=== PATIENT | female | born 1965 | race Two or more races ===

== ENCOUNTER 2020-03-12 13:22 | Outpatient (REF) | payer MEDICAID, SELFPAY ==
--- NOTE | 2020-03-12 13:25 | XR_ITS ---
EXAMINATION: XR PELVIS CLINICAL INFORMATION: Unilateral primary osteoarthritis, left hip. COMPARISON: Pelvis and left hip radiographs 01/25/2019, right hip radiographs 08/01/2015. TECHNIQUE: AP view of the pelvis. FINDINGS: The superior aspect of the iliac crests are beyond the film [id number]. Otherwise, the bony pelvis is unremarkable with no fracture or dislocation or destructive process. There is some minor whiskering lateral aspect left and right iliac crests similar to prior radiographs 2019. There are borderline degenerative changes lower SI joints and borderline osteitis pubis again seen. The right hip again shows prosthesis with intact hardware and no osteolysis. There is narrowing superior left hip joint. There is convexity and borderline spur at lateral base femoral head. Some mild spurring also seen left greater trochanter. XR/XR pelvis 1-2V IMPRESSION: 1. Osteoarthritis left hip. 2. Mild degenerative changes lower SI joints. Mild osteitis pubis. 3. Unremarkable right hip replacement.
== END 2020-03-12 13:23 | disposition home or self-care (01) ==
LOC: HO.HOSX 13:22
PROVIDERS: PCP Family Medicine; Referring Provider Family Medicine; Visit Provider Orthopaedic Surgery
DX: M16.12 Unilateral primary osteoarthritis, left hip (principal)
CPT/HCPCS: 72170; 99202

== ENCOUNTER 2020-04-03 05:40 | Outpatient (REF) | payer MEDICAID, SELFPAY ==
--- NOTE | 2020-04-03 08:48 | FL_ITS ---
EXAMINATION: XR FLUOROSCOPY WITH IMAGES CLINICAL INFORMATION: M16.12 - Unilateral primary osteoarthritis, left hip COMPARISON: Radiograph [place] 03/12/2020 TECHNIQUE: Fluoroscopy performed by Viridiana Santos NP. Fluoroscopy time: 0.2 minutes DAP: 2.0 Gycm2 Images: 1 FINDINGS: There is spinal needle overlying the superolateral aspect left hip joint with intra-articular and intracapsular contrast demonstrated. There is a faint round spot overlying the intertrochanteric region consistent with artifact on the monitor. FL/FL guidance in treatment room IMPRESSION: Fluoroscopy for pain management procedure.
== END 2020-04-03 05:41 | disposition home or self-care (01) ==
LOC: HO.RADIR 05:40
PROVIDERS: Visit Provider Anesthesiology
DX: M16.12 Unilateral primary osteoarthritis, left hip (principal)
CPT/HCPCS: 20610; J3300; Q9967

== ENCOUNTER 2020-04-12 10:45 | Emergency (ER) | payer MEDICAID, SELFPAY ==
[2020-04-12 10:56] VITALS: BP 131/75; BP 154/90; PULSE 90; PULSE 91; RESP 16; TEMP 36.3; O2SAT 100; O2SAT 99; BMI 38.7
--- NOTE | 2020-04-12 11:24 | ED.GENADULT ---
HPI - General Adult General Chief complaint: General Medical Stated complaint: r arm weakness/pain Time Seen by Provider: 04/12/20 11:24 History of Present Illness HPI narrative: Patient with history of hypercholesteremia, high blood pressure and a past TIA complains of an episode of unknown duration where her right arm was weak she cannot lift it or move it or feel it this happened 18 hours ago and was of unknown duration as she took her sleep medication and fell asleep and woke up in the arm was fully mobile with full strength and back to normal and she did want to come to the hospital but then got worried and came almost 24 hours after the episode Right now she has no complaint and has full use of the right arm right leg she has no headache no dizziness no confusion She also complains of her chronic neck pain Related Data Home Medications Medication Instructions Recorded Confirmed atorvastatin 20 mg tablet 20 mg PO DAILY 03/12/20 03/12/20 cyclobenzaprine 5 mg tablet 5 mg PO TID PRN 03/12/20 03/12/20 diclofenac sodium 25 mg 25 mg PO BID 03/12/20 03/12/20 tablet,delayed release hydrocodone 5 mg-acetaminophen 300 1 tab PO BID PRN 03/12/20 03/12/20 mg tablet lisinopril 5 mg tablet 5 mg PO DAILY 03/12/20 03/12/20 Allergies Allergy/AdvReac Type Severity Reaction Status Date / Time aspirin [ASPIRIN] Allergy Mild GI UPSET Unverified 03/12/20 16:44 ibuprofen [IBUPROFEN] Allergy Mild GI UPSET Unverified 03/12/20 16:44 Review of Systems Review of Systems: Positive for resolved weakness in the right upper extremity Negatives are currently no numbness no weakness no paresthesias no chest pain no dizziness no headache no nausea no vomiting no difficulty forming words no difficulty ambulating no palpitations no loss of consciousness no rash [facility] Past Medical History Attestation statement: The following information was validated with the patient. [facility] Narrative: Patient has medical history of hypertension high cholesterol, of vague history of a prior TIA, and chronic neck pain Medical History (Updated 04/13/20 @ 00:00 by Meseret Nielsen) High cholesterol Hypertension Osteoarthritis of left hip Stroke Surgical History (Updated 04/12/20 @ 11:23 by Rin Trujillo) History of appendectomy Status post total hip replacement, right Social History Social History Smoking Status: Current every day smoker Advance Directives: No Advance Directives Information Provided: No Current occupational status: unemployed Current occupation: Right Handed Physical Exam Vital Signs: Vital Signs: Last Vital Signs Temp 98.4 F 04/12/20 14:00 Pulse 80 04/12/20 14:00 Resp 19 04/12/20 14:00 BP 129/80 04/12/20 14:00 Pulse Ox 99 04/12/20 14:00 Body Mass Index 38.7 General appearance is no acute distress comfortable relaxed and cooperative Head is nor some normal cephalic atraumatic pupils equal round react flight the ears are normal tympanic membranes are normal canals are normal Pupils are equal round reactive to light and extraocular motions are intact The neck is supple there is some mild diffuse posterior tenderness worse in the right trapezius, range of motion is good The chest is clear to auscultation bilaterally with symmetric equal breath sounds The heart rate and rhythm regular, no murmur The abdomen is soft nontender Extremities for range of motion x4 neuro cranial nerves 2-12 were intact as tested pupils equal round react light extraocular motions intact verbal interaction is normal comprehension is normal gait is normal balance is normal Cerebellar exam finger to nose is normal, motor is 5/5 x4 and sensation is symmetric and intact Course Course Course Narrative: Patient with a resolved episode of weakness tingling and numbness in the right arm, she does have a history of neck pain but I doubt this was radicular neuropathy from her neck as the weakness fully resolved and the pain in her neck is chronic and there have not been any acute changes, full resolution by morning make me less concerned about radiculopathy in the neck and more concerned about TIA Head CT was negative, labs were pending & plan was to admit patient for a TIA The patient said she did not want to be in the hospital she wanted to go home she wanted to take her medications, I offered any home medications were available here, if she was anxious I could get her some Ativan, she also said she needed a cigarette I offered a nicotine patch The patient politely and calmly said that she did not want to be in the hospital did not want any further evaluation that she understood all risks and wanted to go home so the patient was not admitted and she was discharged AMA Medical Decision Making Lab Data Result diagrams: 04/12/20 15:16 04/12/20 15:16 Labs: Lab Results 04/12/20 04/12/20 04/12/20 Range/Units 12:33 12:33 12:33 WBC Cancelled RBC Cancelled Hgb Cancelled Hct Cancelled MCV Cancelled MCH Cancelled MCHC Cancelled RDW Cancelled Plt Count Cancelled MPV Cancelled Immature Gran % (Auto) Cancelled Neut % (Auto) Cancelled Lymph % (Auto) Cancelled [place] % (Auto) Cancelled Eos % (Auto) Cancelled Baso % (Auto) Cancelled Lymph # (Auto) Cancelled [place] # (Auto) Cancelled Eos # (Auto) Cancelled Baso # (Auto) Cancelled Abs Immat Gran (auto) Cancelled Absolute Neuts (auto) Cancelled Absolute Nucleated RBC Cancelled Nucleated RBC % (auto) Cancelled PT Cancelled INR Cancelled APTT (24.1-38.0) SEC Sodium Cancelled Potassium Cancelled Chloride Cancelled Carbon Dioxide Cancelled Anion Gap Cancelled BUN Cancelled Creatinine Cancelled Estim Creat Clear Calc Cancelled Estimated GFR Cancelled Random Glucose Cancelled Calcium Cancelled COVID-19 (KARELY) (Negative) COVID-19 Clin Com 04/12/20 04/12/20 04/12/20 Range/Units 13:58 15:16 15:16 WBC 9.9 RBC 4.57 Hgb 12.4 Hct 39.5 MCV 86.4 MCH 27.1 MCHC 31.4 RDW 15.1 Plt Count 266 MPV 9.9 Immature Gran % (Auto) 0.5 H Neut % (Auto) 70.9 Lymph % (Auto) 23.5 [place] % (Auto) 3.8 Eos % (Auto) 0.9 Baso % (Auto) 0.4 Lymph # (Auto) 2.3 [place] # (Auto) 0.4 Eos # (Auto) 0.1 Baso # (Auto) 0.0 Abs Immat Gran (auto) 0.05 H Absolute Neuts (auto) 7.0 Absolute Nucleated RBC 0.000 Nucleated RBC % (auto) 0.0 PT INR APTT 36.6 (24.1-38.0) SEC Sodium Potassium Chloride Carbon Dioxide Anion Gap BUN Creatinine Estim Creat Clear Calc Estimated GFR Random Glucose Calcium COVID-19 (KARELY) Negative (Negative) COVID-19 Clin Com See Note 04/12/20 Range/Units 15:16 WBC RBC Hgb Hct MCV MCH MCHC RDW Plt Count MPV Immature Gran % (Auto) Neut % (Auto) Lymph % (Auto) [place] % (Auto) Eos % (Auto) Baso % (Auto) Lymph # (Auto) [place] # (Auto) Eos # (Auto) Baso # (Auto) Abs Immat Gran (auto) Absolute Neuts (auto) Absolute Nucleated RBC Nucleated RBC % (auto) PT INR APTT (24.1-38.0) SEC Sodium 139 Potassium 4.1 Chloride 104 Carbon Dioxide 25 Anion Gap 14 BUN 13 Creatinine 0.99 Estim Creat Clear Calc 81.1 Estimated GFR 58 Random Glucose 119 H Calcium 8.8 COVID-19 (KARELY) (Negative) COVID-19 Clin Com Discharge Plan Discharge Clinical Impression: Brain TIA Patient Disposition: Left Against Medical Advice Additional Instructions: WE WANTED TO ADMIT YOU TO THE HOSPITAL BECAUSE WE ARE CONCERNED YOU HAD A TRANSIENT ISCHEMIC ATTACK, WHICH IS A STROKE WHERE SYMPTOMS RESOLVED AND RETURN TO NORMAL YOU HAD AN EPISODE OF WEAKNESS WHICH RESOLVED WE YOU WERE UNABLE TO MOVE YOUR RIGHT ARM AND THIS CERTAINLY COULD BE A STROKE SYMPTOM THAT RESOLVED MANY TIMES A PATIENT WITH A TRANSIENT STROKE WILL LATER HAVE A MUCH MORE SEVERE STROKE WITH RISK OF OR PERMANENT DISABILITY BECAUSE YOU DID NOT WANT TO BE ADMITTED AND LEFT AGAINST MEDICAL ADVICE WE GAVE YOU THE PAPERWORK BUT IT IS IMPORTANT YOU UNDERSTAND THE RISK AND THAT YOU ARE VERY WELCOME TO RETURN HERE ANY TIME AND THE DOOR IS OPEN IF YOU CHANGE YOUR MIND Prescriptions: No Action hydrocodone-acetaminophen 5-300 mg tablet 1 tab PO BID PRNRF: 0 cyclobenzaprine 5 mg tablet 5 mg PO TID PRNRF: 0 diclofenac sodium 25 mg tablet,delayed release (DR/EC) 25 mg PO BID RF: 0 atorvastatin 20 mg tablet 20 mg PO DAILY RF: 0 lisinopril 5 mg tablet 5 mg PO DAILY RF: 0 Stand Alone Forms: Against Medical Advice Interventions: ED Discharge Assessment Last Done: 04/12/20 16:13 Discharge Date/Time: 04/12/20 16:20
--- NOTE | 2020-04-12 11:35 | CT_ITS ---
EXAMINATION: CT HEAD WITHOUT CONTRAST CLINICAL INFORMATION: Transient weakness right arm COMPARISON: CT head noncontrast 12/05/2019 TECHNIQUE: Contiguous axial imaging was performed from the skull base to vertex without intravenous administration of contrast. Additional 2-D coronal and sagittal reformatted images are generated on the CT workstation and uploaded to PACS. This CT examination was performed using dose optimization techniques as appropriate, variously including the following: *Automated exposure control *Adjustment of mA and/or kV according to patient size (this includes techniques or standardized protocols for targeted exams where dose is matched to indication/reason for exam; i.e. extremities or head) *Use of iterative reconstruction technique DLP: 616 mGy-cm FINDINGS: There is no intracranial hemorrhage, hematoma, or extra-axial fluid collection. The ventricles are normal in size. There is no hydrocephalus, edema, or mass effect. The almonte-white matter differentiation appears symmetric. There is no visible acute territorial infarct or mass lesion. The calvarium appears intact. There is no pneumocephalus or orbital emphysema. The visualized sinuses and middle ears and mastoid air cells show no significant mucosal thickening. There are no air-fluid levels. CT/CT head/brain wo con IMPRESSION: No acute intracranial abnormality.
--- NOTE | 2020-04-12 11:35 | ECG_ITS ---
Test Reason : TIA Blood Pressure : / mmHG Vent. Rate : 078 BPM Atrial Rate : 078 BPM P-R Int : 152 ms QRS Dur : 076 ms QT Int : 378 ms P-R-T Axes : 047 -10 020 degrees QTc Int : 430 ms Normal sinus rhythm Possible Left atrial enlargement Borderline ECG When compared to the previous EKG of No significant changes seen Referred By: Pierre Miramontes Electronically Signed By:LILY ZEPEDA MD
--- NOTE | 2020-04-12 11:39 | PC.NURSE ---
PT TO BE TRANSFERED TO [facility] R/T +COVID EXPOSURE AND FURTHER EVALUATION, AMBULATORY W/O APPARENT INCIDENT, REPORT TO SHLOMO MENCHACA
[2020-04-12 11:48] VITALS: BP 137/83; PULSE 85; RESP 19
[2020-04-12 12:00] VITALS: BP 133/88; PULSE 82; RESP 19; TEMP 36.7; O2SAT 99
[2020-04-12 13:48] VITALS: BP 147/89; PULSE 77
[2020-04-12 14:00] VITALS: BP 129/80; PULSE 80; RESP 19; TEMP 36.9; O2SAT 99
[2020-04-12 14:51] LABS: COVID-19 Test Negative (Negative)
[2020-04-12 15:22] LABS: MANUAL DIFF FLAG NO
[2020-04-12 15:24] LABS: Basophils Percent Auto 0.4 % (0-2); Eosinophils Absolute Auto 0.1 X10*3/uL (0.0-0.4); Eosinophils Percent Auto 0.9 % (0-4); Hematocrit 39.5 % (37-47); Hemoglobin 12.4 g/dl (12.0-16.0); Imm Gran Abs Auto 0.05 X10*3/uL (0.00-0.03); Imm Gran Pct Auto 0.5 % (0.0-0.4); Lymphocytes Absolute Auto 2.3 X10*3/uL (1.2-4.9); Lymphocytes Percent Auto 23.5 % (20-40); Mean Corpuscular HGB Conc 31.4 g/dl (31.0-35.0); Mean Corpuscular Hemoglobin 27.1 pg (27.0-33.0); Mean Corpuscular Volume 86.4 fL (80-98); Mean Platelet Volume 9.9 fL (9.4-12.3); Monocytes Absolute Auto 0.4 X10*3/uL (0.1-1.2); Monocytes Percent Auto 3.8 % (2-11); Neutrophils Percent Auto 70.9 % (45-73); Platelet Count 266 X10*3/uL (160-400); Red Blood Count 4.57 X10*6/uL (4.20-5.50); Red Cell Distribution Width 15.1 % (11.0-16.0); White Blood Count 9.9 X10*3/uL (4.8-10.8)
[2020-04-12 15:34] LABS: Partial Thromboplastin Time 36.6 SEC (24.1-38.0)
[2020-04-12 15:43] LABS: Anion Gap 14 (12-20); Blood Urea Nitrogen 13 mg/dL (9-16); Calcium 8.8 mg/dL (8.4-10.2); Carbon Dioxide 25 mmol/L (22-29); Chloride 104 mmol/L (96-108); Creatinine Clr Calc Pharmacy 81.1; Estimated Glomerular Filt Rate 58; Glucose Random 119 mg/dL (60-115); Potassium 4.1 mmol/l (3.3-5.1); Sodium 139 mmol/L (135-145)
--- NOTE | 2020-04-23 14:46 | MHC.STROKE ---
LATE ENTRY FOR 04/12/20 NIHSS = 0 ESTIMATED FROM ED RECORD. LKW 05/12/19 APPORX. 1645. NOT CONSIDERED FOR TPA DUE TO OUT OF THE WINDOW FOR TPA, RESOLUTION OF SYMPTOMS. ENCOURAGED TO STAY BUT SIGNED AMA.
== END 2020-04-12 16:20 | disposition left against medical advice (07) ==
PROVIDERS: Physician Assistant Medical; Emergency Provider Emergency Medicine Emergency Medical Services
DX: G45.9 Transient cerebral ischemic attack, unspecified (principal); I10 Essential (primary) hypertension; Z20.828 Contact with and (suspected) exposure to other viral communicable diseases; E78.00 Pure hypercholesterolemia, unspecified; F17.200 Nicotine dependence, unspecified, uncomplicated; Z86.73 Personal history of transient ischemic attack (TIA), and cerebral infarction without residual deficits; Z79.899 Other long term (current) drug therapy
CPT/HCPCS: 36415; 70450; 80048; 85025; 85730; 87635; 93005; 99284

== ENCOUNTER → 2020-05-14 14:19 | Outpatient (BNVA) | payer MEDICAID, SELFPAY | PROVIDERS: Visit Provider Anesthesiology ==

== ENCOUNTER → 2020-07-23 10:48 | Outpatient (BNVA) | payer MEDICAID, SELFPAY | PROVIDERS: PCP Family Medicine; Visit Provider Nurse Practitioner Family | DX: M16.12 Unilateral primary osteoarthritis, left hip (principal) | CPT/HCPCS: 99212 ==

== ENCOUNTER 2020-08-21 06:13 | Outpatient (REF) | payer MEDICAID, SELFPAY ==
--- NOTE | ~2020-08-21 | FL_ITS ---
EXAMINATION: XR FLUOROSCOPY WITH IMAGES CLINICAL INFORMATION: M16.12 - Unilateral primary osteoarthritis, left hip COMPARISON: Fluoroscopic spot views left hip 04/03/2020 TECHNIQUE: Fluoroscopy performed by Viridiana Santos NP. Fluoroscopy time: 0.1 minutes DAP: 3.39 Gycm2 Images: 1 FINDINGS: There is spinal needle overlying the superior lateral left hip joint. Contrast is present in the joint capsule. There are osteoarthritic changes with joint narrowing and subchondral sclerosis and osteophytes. FL/FL guidance in treatment room IMPRESSION: Fluoroscopy for pain management procedure.
== END 2020-08-21 06:14 | disposition home or self-care (01) ==
LOC: HO.RADIR 06:13
PROVIDERS: Visit Provider Anesthesiology
DX: M16.12 Unilateral primary osteoarthritis, left hip (principal); J44.9 Chronic obstructive pulmonary disease, unspecified; F17.200 Nicotine dependence, unspecified, uncomplicated; Z71.6 Tobacco abuse counseling
CPT/HCPCS: 20610; 99202; Q9967

== ENCOUNTER 2020-09-20 15:13 | Outpatient (REF) | payer MEDICAID, SELFPAY ==
--- NOTE | ~2020-09-20 | XR_ITS ---
EXAMINATION: XR KNEE, LEFT CLINICAL INFORMATION: Left knee pain COMPARISON: None TECHNIQUE: Four views of the left knee. FINDINGS: There is no fracture, dislocation, or destructive process. Bony mineralization appears normal. There is no joint narrowing or erosive change or chondrocalcinosis. No lateralization patella. No suprapatellar effusion. XR/XR knee LT 4V IMPRESSION: Unremarkable left knee.
--- NOTE | 2020-09-20 17:20 | PFT_ITS ---
FLOWS: FEV1 of 70% of predicted at 2.01 L. FVC 77% of predicted at 2.84 L. FEV1 to FVC ratio of 0.71. Positive bronchodilator response. LUNG VOLUMES: Total lung capacity 82% of predicted at 4.42 L. Residual volume 95% of predicted at 1.89 L. Slow vital capacity 75% of predicted at 2.52 L. Expiratory reserve volume 43% of predicted at 0.45 L. Diffusion capacity is mildly decreased, diffusion capacity corrects to normal after adjustment for alveolar ventilation. IMPRESSION: No obstructive or restrictive ventilatory defect. Positive bronchodilator response. Decreased expiratory reserve volume suggests extrathoracic restriction likely secondary to abdominal obesity. Ramiro Mccauley MD AP/MODL / [id number]
== END 2020-09-20 15:14 | disposition home or self-care (01) ==
LOC: HO.RESP 15:13
PROVIDERS: Absent Provider Nurse Practitioner Women's Health; PCP Family Medicine; Visit Provider Internal Medicine
DX: J44.9 Chronic obstructive pulmonary disease, unspecified (principal); M16.12 Unilateral primary osteoarthritis, left hip; M25.562 Pain in left knee
CPT/HCPCS: 73564; 94060; 94727; 94729

== ENCOUNTER → 2020-09-25 11:08 | Outpatient (BNVA) | payer MEDICAID, SELFPAY | PROVIDERS: PCP Family Medicine; Visit Provider Internal Medicine | DX: J44.9 Chronic obstructive pulmonary disease, unspecified (principal); F17.210 Nicotine dependence, cigarettes, uncomplicated | CPT/HCPCS: 99212 ==

== ENCOUNTER 2020-09-25 13:00 | Outpatient (RCR) | payer MEDICAID, SELFPAY | END 2020-09-28 08:00 | disposition home or self-care (01) | LOC: HO.PT 13:00 | PROVIDERS: PCP Family Medicine; Visit Provider Nurse Practitioner Women's Health | DX: M25.852 Other specified joint disorders, left hip (principal) | CPT/HCPCS: 97110; 97112; 97116; 97163; 97530 ==

== ENCOUNTER → 2020-09-26 12:43 | Outpatient (BNVA) | payer MEDICAID, SELFPAY | PROVIDERS: PCP Family Medicine; Visit Provider Nurse Practitioner Family | DX: M16.12 Unilateral primary osteoarthritis, left hip (principal) | CPT/HCPCS: 99212 ==

== ENCOUNTER 2020-10-29 12:12 | Outpatient (REF) | payer MEDICAID, SELFPAY ==
--- NOTE | ~2020-10-29 | MM_ITS ---
EXAMINATION: MM SCREENING DIGITAL BREAST TOMOSYNTHESIS, BILATERAL CLINICAL INFORMATION: Screening. Asymptomatic. The lifetime risk of breast cancer based on the Tyrer-Cuzick Model is 7%. COMPARISON: Mammography: 10/27/2018, 07/24/2017, 10/23/2015 TECHNIQUE: Digital breast tomosynthesis is performed in both the craniocaudal and mediolateral oblique views along with computer-aided detection (CAD). Synthesized 2D images are generated from the tomosynthesis. FINDINGS: There are scattered areas of fibroglandular density (ACR BI-RADS breast composition Category b). Breast tissue composition borders on predominantly fatty. Background stromal and fibroglandular densities nodularity mid 3:00 left breast are stable. There are 2 biopsy clip markers again seen posterior central 9:00 left breast.There is no developing density or interval mass or architectural abnormality. No abnormal calcifications. No significant changes. MM/MM tomosynthesis screening BI IMPRESSION: No mammographic evidence of malignancy. ASSESSMENT: BI-RADS 2: Benign RECOMMENDATION: Routine annual mammography screening. This patient's information was entered into a reminder system with a target due date for their next mammogram.
== END 2020-10-29 12:13 | disposition home or self-care (01) ==
LOC: HO.MAMMO 12:12
PROVIDERS: Visit Provider Family Medicine
DX: Z12.31 Encounter for screening mammogram for malignant neoplasm of breast (principal)
CPT/HCPCS: 77063; 77067

== ENCOUNTER 2020-10-29 12:55 | Outpatient (REF) | payer MEDICAID, SELFPAY ==
--- NOTE | ~2020-10-29 | CT_ITS ---
EXAMINATION: CT CHEST SCREENING CLINICAL INFORMATION: Smoking history COMPARISON: Previous chest CT April 2015 and chest x-rays most recent February 2019 TECHNIQUE: Multidetector volumetric CT imaging of the chest is performed without contrast using low dose technique. Additional 2D coronal and sagittal reformatted images and axial 3D maximum intensity projection (MIP) images are generated on the CT workstation. This CT examination was performed using dose optimization techniques as appropriate, variously including the following: *Automated exposure control *Adjustment of mA and/or kV according to patient size (this includes techniques or standardized protocols for targeted exams where dose is matched to indication/reason for exam; i.e. extremities or head) *Use of iterative reconstruction technique DLP: 76 mGy-cm FINDINGS: LUNGS: There is a 1 cm cyst in the superior segment of the left lower lobe. There is minimal linear scarring or subsegmental atelectasis in the inferior segment of the lingula. Lungs are otherwise clear. Previously identified dense airspace disease in the right upper lobe on April 2015 exam has resolved. MEDIASTINUM: There is mild coronary artery calcification. There are small mediastinal lymph nodes. The mediastinum is otherwise normal. PLEURA: There is no pleural effusion. No pleural mass or thickening. AXILLA: No lymphadenopathy. UPPER ABDOMEN: Unremarkable OSSEOUS STRUCTURES: There are degenerative changes of the spine. CT/CT lung screening IMPRESSION: Small cyst in the left lower lobe and minimal linear scarring or subsegmental atelectasis in the inferior segment of the lingula. Mild coronary artery calcification. ASSESSMENT: Lung-RADS category 2: Benign RECOMMENDATION: Annual low-dose chest CT follow-up recommended.
== END 2020-10-29 12:56 | disposition home or self-care (01) ==
LOC: HO.CT 12:55
PROVIDERS: PCP Family Medicine; Visit Provider Physician Assistant Medical
DX: Z12.2 Encounter for screening for malignant neoplasm of respiratory organs (principal); F17.210 Nicotine dependence, cigarettes, uncomplicated
CPT/HCPCS: 71271

== ENCOUNTER 2020-11-12 11:54 | Outpatient (REF) | payer MEDICAID, SELFPAY ==
--- NOTE | ~2020-11-12 | XR_ITS ---
EXAMINATION: XR PELVIS CLINICAL INFORMATION: Pain hip. COMPARISON: None TECHNIQUE: AP view of the pelvis. FINDINGS: There is a total right hip prosthesis with prosthetic components in satisfactory alignment. No prosthetic loosening visualized. There is moderate loss of left hip joint space with left lateral acetabular spurring. There is minimal deformity of left femoral head and neck junction. No acute fractures seen. There is no dislocation. No loose bodies visualized. There are subchondral cystic changes along the acetabulum. Bilateral SI joints are symmetrical. Visualized rest of the pelvis and the sacral bone appears unremarkable. XR/XR pelvis 1-2V IMPRESSION: Moderate arthritic changes left hip joint. Total right hip prosthesis with prosthetic components in satisfactory alignment. No prosthetic loosening seen.
== END 2020-11-12 11:55 | disposition home or self-care (01) ==
LOC: HO.HOSX 11:54
PROVIDERS: Visit Provider Orthopaedic Surgery
DX: M16.12 Unilateral primary osteoarthritis, left hip (principal)
CPT/HCPCS: 72170; 99202

== ENCOUNTER → 2021-01-07 12:43 | Outpatient (BNVA) | payer MEDICAID, SELFPAY | PROVIDERS: Visit Provider Orthopaedic Surgery | DX: Z01.812 Encounter for preprocedural laboratory examination (principal); Z01.810 Encounter for preprocedural cardiovascular examination ==

== ENCOUNTER → 2021-01-24 12:37 | Outpatient (BNVA) | payer MEDICAID, SELFPAY | PROVIDERS: PCP Family Medicine; Visit Provider Physician Assistant | DX: M16.12 Unilateral primary osteoarthritis, left hip (principal) | CPT/HCPCS: 99212 ==

== ENCOUNTER 2021-01-29 08:09 | Inpatient (IN) | payer MEDICAID, SELFPAY ==
[2021-01-16 12:04] VITALS: BP 139/85; PULSE 84; RESP 16; O2SAT 98; BMI 36.4
--- NOTE | 2021-01-16 12:40 | HO.ANESPROP2 ---
Documented by User: Minoo Peters NP 01/30/21 08:48 HPI - Anesthesia Eval Consult details Narrative: 55yo F for Left Total Hip Replacement 01/29/21 PCP [facility] Active Problems Active Problems: All Active Problems (Updated 01/16/21 @ 12:35 by Rylee Garrett RN) Primary osteoarthritis of left hip (Acute) Nicotine dependence, cigarettes, uncomplicated (Acute ~1978) Personal history of nicotine dependence (Acute ~1978) COPD (chronic obstructive pulmonary disease) (Acute) Osteoarthritis of left hip (Acute) Past Medical History Medical History Anxiety and depression Chronic headaches COPD (chronic obstructive pulmonary disease) History of panic attacks History of TIA (transient ischemic attack) (~2019) Hyperlipidemia Hypertension Low back pain Neck pain Nicotine dependence, cigarettes, uncomplicated (~1978) Osteoarthritis of left hip Personal history of nicotine dependence (~1978) Poor dentition Uses roller walker Family History Family history of problems with anesthesia: No Surgical History Surgical History History of appendectomy (~02/13/02) Status post total hip replacement, right (~04/26/13) History of Problems with Anesthesia: No Social History Social History Household Members: None Housing: Apartment Are you a primary long term care phlebotomist to a significant other at home: No Do you presently have visiting nurse or other home services: No Patient Tobacco Use Status: Current everyday Tobacco user Tobacco use type: Cigarette Cigarette Packs Per Day: 1 Cigarettes Per Day: 20.0 Years Smoked: 42 Second Hand Smoke Exposure: No Current occupational status: unemployed Current occupation: Right Handed Narrative Narrative: No recent illness No chest pain at rest SOB/PAINTING at baseline. Activity limited d/t pain and PAINTING Meds Allergies Allergy/AdvReac Type Severity Reaction Status Date / Time aspirin [ASPIRIN] Allergy Mild GI UPSET Verified 01/29/21 08:02 ibuprofen [IBUPROFEN] Allergy Mild GI UPSET Verified 01/29/21 08:02 Home Medications Medication Instructions Recorded Confirmed Last Taken Type cyclobenzaprine 5 mg tablet 5 mg PO TID PRN 03/12/20 01/29/21 Unknown History alprazolam 0.5 mg tablet (Xanax) 0.5 mg PO QID tab 07/23/20 01/16/21 01/28/21 History lisinopril 10 mg tablet 10 mg PO BEDTIME 07/23/20 01/16/21 01/28/21 History albuterol sulfate 90 mcg/actuation 2 puff INHALATION Q6H PRN 08/21/20 01/16/21 01/28/21 History aerosol inhaler (ProAir HFA) fluticasone propionate 220 1 puff INHALATION BID 08/21/20 01/16/21 01/28/21 History mcg/actuation HFA aerosol inhaler (Flovent HFA) tiotropium bromide 18 mcg capsule 1 cap INHALATION DAILY 08/21/20 01/16/21 01/28/21 History with inhalation device (Spiriva with HandiHaler) oxcarbazepine 600 mg tablet 600 mg PO BEDTIME 01/16/21 01/23/21 01/28/21 History lamotrigine 200 mg tablet 200 mg PO BEDTIME 01/23/21 01/23/21 01/28/21 History cholecalciferol (vitamin D3) 25 1 cap PO DAILY 01/29/21 01/29/21 01/28/21 History mcg (1,000 unit) capsule (Vitamin D3) gabapentin 600 mg tablet 600 mg PO TID 01/29/21 01/29/21 01/28/21 History lidocaine 5 % topical patch 1 patch TOPICAL DAILY PRN 01/29/21 01/29/21 Unknown History nicotine 21 mg/24 hr daily 1 patch TRANSDERMAL DAILY 01/29/21 01/29/21 01/29/21 History transdermal patch omeprazole 20 mg capsule,delayed 1 cap PO DAILY@0630 01/29/21 01/29/21 01/28/21 History release quetiapine 50 mg tablet 50 mg PO BEDTIME 01/29/21 01/29/21 01/28/21 History 50 mg sumatriptan succinate 50 mg tablet 50 mg PO DAILY PRN 01/29/21 01/29/21 01/28/21 History zolpidem 10 mg tablet 1 tab PO BEDTIME 01/29/21 01/29/21 Unknown History Exam Exam Date and Time: January 16, 2021 1240 Height,Weight and Vital Signs: Height 5 ft 6 in Weight 102.512 kg Last Vital Signs Pulse 84 01/16/21 12:04 Resp 16 01/16/21 12:04 BP 139/85 01/16/21 12:04 Pulse Ox 98 01/16/21 12:04 Pertinent Lab Results Pertinent Lab Results: Lab Results 01/16/21 01/24/21 01/24/21 Range/Units 12:30 13:35 13:35 WBC 8.4 (4.8-10.8) X10*3/uL RBC 4.62 (4.20-5.50) X10*6/uL Hgb 12.2 (12.0-16.0) g/dl Hct 39.5 (37-47) % MCV 85.5 (80-98) fL MCH 26.4 L (27.0-33.0) pg MCHC 30.9 L (31.0-35.0) g/dl RDW 14.3 (11.0-16.0) % Plt Count 261 (160-400) X10*3/uL MPV 10.6 (9.4-12.3) fL Immature Gran % (Auto) 0.5 H (0.0-0.4) % Neut % (Auto) 70.2 (45-73) % Lymph % (Auto) 22.2 (20-40) % [place] % (Auto) 5.4 (2-11) % Eos % (Auto) 1.2 (0-4) % Baso % (Auto) 0.5 (0-2) % Lymph # (Auto) 1.9 (1.2-4.9) X10*3/uL [place] # (Auto) 0.5 (0.1-1.2) X10*3/uL Eos # (Auto) 0.1 (0.0-0.4) X10*3/uL Baso # (Auto) 0.0 (0.0-0.2) X10*3/uL Abs Immat Gran (auto) 0.04 H (0.00-0.03) X10*3/uL Absolute Neuts (auto) 5.9 (2.0-8.3) X10*3/uL Absolute Nucleated RBC 0.000 (0.0-0.012) X10*3/uL Nucleated RBC % (auto) 0.0 (0.0-0.2) /100WBC Sodium 140 (135-145) mmol/L Potassium 4.6 (3.3-5.1) mmol/L Chloride 105 (96-108) mmol/L Carbon Dioxide 27 (22-29) mmol/L Anion Gap 13 (12-20) BUN 9 (9-16) mg/dL Creatinine 0.88 (0.5-1.4) mg/dL Estim Creat Clear Calc 87.3 Estimated GFR > 60 Random Glucose 102 (60-115) mg/dL Calcium 9.6 D (8.4-10.2) mg/dL Nasal Screen MRSA (PCR) POSITIVE A (Negative) Nasal S. aureus Screen POSITIVE A (Negative) Nasal MRSA/S.aureus Interp SEE NOTE Laboratory Tests 01/24/21 13:35 Blood Type O Positive Antibody Screen NEGATIVE Narrative Narrative: EKG 01/18/21 SR @ 94 Airway Mallampati Class: III Neck ROM: Limited (D/t pain) Loose/Missing/Broken Teeth: Yes (Upper permanent bridge, most lower teeth missing) Heart: RRR Lungs: CTAB Assessment and Plan Assessment Anesthesia Assessment: Anesthesia Plan Discussed, Smoking Cess. Discussed and PAT Visit Final Anesthetic Review Family History of Problems with Anesthesia: No History of Problems with Anesthesia: No Documented by User: Giancarlo Cornelius MD 02/05/21 16:40 [facility] Past Medical History Medical History Anxiety and depression Chronic headaches COPD (chronic obstructive pulmonary disease) History of panic attacks History of TIA (transient ischemic attack) (~2019) Hyperlipidemia Hypertension Low back pain Neck pain Nicotine dependence, cigarettes, uncomplicated (~1978) Osteoarthritis of left hip Personal history of nicotine dependence (~1978) Poor dentition Uses roller walker Surgical History Surgical History History of appendectomy (~02/13/02) Status post total hip replacement, right (~04/26/13) Social History Social History Household Members: None Housing: Apartment Are you a primary long term care phlebotomist to a significant other at home: No Do you presently have visiting nurse or other home services: No Patient Tobacco Use Status: Current everyday Tobacco user Tobacco use type: Cigarette Cigarette Packs Per Day: 1 Cigarettes Per Day: 20.0 Years Smoked: 42 Second Hand Smoke Exposure: No Current occupational status: unemployed Current occupation: Right Handed Meds Allergies Allergy/AdvReac Type Severity Reaction Status Date / Time aspirin [ASPIRIN] Allergy Mild GI UPSET Verified 01/29/21 08:02 ibuprofen [IBUPROFEN] Allergy Mild GI UPSET Verified 01/29/21 08:02 Home Medications Medication Instructions Recorded Confirmed Last Taken Type cyclobenzaprine 5 mg tablet 5 mg PO TID PRN 03/12/20 01/29/21 Unknown History alprazolam 0.5 mg tablet (Xanax) 0.5 mg PO QID tab 07/23/20 01/16/21 01/28/21 History lisinopril 10 mg tablet 10 mg PO BEDTIME 07/23/20 01/16/21 01/28/21 History albuterol sulfate 90 mcg/actuation 2 puff INHALATION Q6H PRN 08/21/20 01/16/21 01/28/21 History aerosol inhaler (ProAir HFA) fluticasone propionate 220 1 puff INHALATION BID 08/21/20 01/16/21 01/28/21 History mcg/actuation HFA aerosol inhaler (Flovent HFA) tiotropium bromide 18 mcg capsule 1 cap INHALATION DAILY 08/21/20 01/16/21 01/28/21 History with inhalation device (Spiriva with HandiHaler) oxcarbazepine 600 mg tablet 600 mg PO BEDTIME 01/16/21 01/23/21 01/28/21 History lamotrigine 200 mg tablet 200 mg PO BEDTIME 01/23/21 01/23/21 01/28/21 History cholecalciferol (vitamin D3) 25 1 cap PO DAILY 01/29/21 01/29/21 01/28/21 History mcg (1,000 unit) capsule (Vitamin D3) gabapentin 600 mg tablet 600 mg PO TID 01/29/21 01/29/21 01/28/21 History lidocaine 5 % topical patch 1 patch TOPICAL DAILY PRN 01/29/21 01/29/21 Unknown History nicotine 21 mg/24 hr daily 1 patch TRANSDERMAL DAILY 01/29/21 01/29/21 01/29/21 History transdermal patch omeprazole 20 mg capsule,delayed 1 cap PO DAILY@0630 01/29/21 01/29/21 01/28/21 History release quetiapine 50 mg tablet 50 mg PO BEDTIME 01/29/21 01/29/21 01/28/21 History 50 mg sumatriptan succinate 50 mg tablet 50 mg PO DAILY PRN 01/29/21 01/29/21 01/28/21 History zolpidem 10 mg tablet 1 tab PO BEDTIME 01/29/21 01/29/21 Unknown History Assessment and Plan Final Anesthetic Review NPO: Yes ASA Class: III Final Preanesthetic Review: No Changes in Pt Med Stat, Meds/Allgs Chart Reviewed, Consent Obtained/Reviewed and Anes Risks/Benef Reviewed Patient Risk: Intermediate Procedure Risk: Intermediate Anesthetic Plan Anesthetic Plan: MAC: and Spinal Disposition: Standard PACU
[2021-01-16 14:31] LABS: MRSA Nasal PCR POSITIVE (Negative); SA Nasal PCR POSITIVE (Negative)
[2021-01-24 13:38] LABS: MANUAL DIFF FLAG NO
[2021-01-24 14:22] LABS: Basophils Percent Auto 0.5 % (0-2); Eosinophils Absolute Auto 0.1 X10*3/uL (0.0-0.4); Eosinophils Percent Auto 1.2 % (0-4); Hematocrit 39.5 % (37-47); Hemoglobin 12.2 g/dl (12.0-16.0); Imm Gran Abs Auto 0.04 X10*3/uL (0.00-0.03); Imm Gran Pct Auto 0.5 % (0.0-0.4); Lymphocytes Absolute Auto 1.9 X10*3/uL (1.2-4.9); Lymphocytes Percent Auto 22.2 % (20-40); Mean Corpuscular HGB Conc 30.9 g/dl (31.0-35.0); Mean Corpuscular Hemoglobin 26.4 pg (27.0-33.0); Mean Corpuscular Volume 85.5 fL (80-98); Mean Platelet Volume 10.6 fL (9.4-12.3); Monocytes Absolute Auto 0.5 X10*3/uL (0.1-1.2); Monocytes Percent Auto 5.4 % (2-11); Neutrophils Absolute Auto 5.9 X10*3/uL (2.0-8.3); Neutrophils Percent Auto 70.2 % (45-73); Platelet Count 261 X10*3/uL (160-400); Red Blood Count 4.62 X10*6/uL (4.20-5.50); Red Cell Distribution Width 14.3 % (11.0-16.0); White Blood Count 8.4 X10*3/uL (4.8-10.8)
[2021-01-24 14:47] LABS: Anion Gap 13 (12-20); Blood Urea Nitrogen 9 mg/dL (9-16); Calcium 9.6 mg/dL (8.4-10.2); Carbon Dioxide 27 mmol/L (22-29); Chloride 105 mmol/L (96-108); Creatinine Clr Calc Pharmacy 87.3; Estimated Glomerular Filt Rate > 60; Glucose Random 102 mg/dL (60-115); Potassium 4.6 mmol/L (3.3-5.1); Sodium 140 mmol/L (135-145)
[2021-01-29] VITALS (20 sets, daily range): BP systolic 96–150; BP diastolic 51–87; PULSE 70–111; RESP 15–22; TEMP 36.2–37.1; O2SAT 93–99
--- NOTE | ~2021-01-29 | XR_ITS ---
EXAMINATION: XR PELVIS CLINICAL INFORMATION: Post left hip replacement COMPARISON: Previous x-ray October 2020 TECHNIQUE: AP view of the pelvis. FINDINGS: There is a new left hip replacement in satisfactory position. No fracture or dislocation is seen. There is a right hip replacement in satisfactory position. The visualized pelvis is unremarkable. There are postoperative changes to the soft tissues. XR/XR pelvis 1-2V IMPRESSION: New left hip replacement in satisfactory position.
[2021-01-29] MEDS: Lactated Ringers 1,000 ML 100 ML IVCONT (08:55)
[2021-01-29 08:57] LABS: COVID-19 Test Negative (Negative); IDNOW Serial# 9DD0AD1C
[2021-01-29] MEDS: vancomycin HCL 1,500 MG in 0.9 % Sodium Chloride 500 ML 333.33 MG IV ×2 (08:58→22:43)
[2021-01-29] MEDS: oxyCODONE HCl ER 10 MG TAB.ER.12H PO ×2 (09:17→22:43)
--- NOTE | 2021-01-29 09:19 | PC.NURSE ---
Verified ordered Vancomycin IV dose with Eloy from Pharmacy. He stated dose should be increased from 1000mg to 1500mg and that he will change it in Expanse. Vanco 1500mg administered.
--- NOTE | 2021-01-29 09:23 | PC.NURSE ---
Patient took Vicodin 5/325mg and Tylenol 500mg this AM at 0600. Dr. Cornelius notified. Okay to still give ordered Oxycontin 10mg however, Ofirmev 1000mg to be held and administered at a later time. This medication returned to Pyxis.
--- NOTE | 2021-01-29 09:27 | MHC.SHP ---
Pre-Procedural Eval Section A Date of Service: 01/29/21 The patient is an INPATIENT: No Changes since office visit: Yes Patient answered all questions; No Cold of Flu in the past 2 weeks, No New Medical Problems and No Changes in Medication The History & Physical has been completed within 30 days and I have reviewed it.: Yes Section B Chief Complaint: LT MARISELA Allergies: Allergies Allergy/AdvReac Type Severity Reaction Status Date / Time aspirin [ASPIRIN] Allergy Mild GI UPSET Verified 01/29/21 08:02 ibuprofen [IBUPROFEN] Allergy Mild GI UPSET Verified 01/29/21 08:02 Plan I have reviewed the history and physical and performed a pertinent physical examination on my patient. No changes have occurred unless specified.
--- NOTE | 2021-01-29 11:55 | PM.OP ---
Brief Operative Note Date of Service: 01/29/21 Pre-op diagnosis: left hip OA Post-op diagnosis: same Procedure: L MARISELA Implants: Pauline trident 2 52/20 deg liner [place] accolade2 #4 132 deg +0 36 deramic Surgeon: William Neal MD Anesthesia: GETA Was an Entry Level Project Coordinator used for this Procedure?: Yes Entry Level Project Coordinator: Aureliano Faulkner Estimated blood loss (mL): 200 Pathology: other Condition: stable Disposition: PACU
--- NOTE | 2021-01-29 11:59 | W.PM.OPN ---
Operative Note Operative Note Date of Service: 01/29/21 Narrative: re-op diagnosis: left hip OA Post-op diagnosis: same Procedure: L MARISELA Implants: [place] trident 2 52/20 deg liner Pauline accolade2 #4 132 deg +0 36 deramic Surgeon: William Neal MD Anesthesia: GETA Was an Golf Sales Associate used for this Procedure?: Yes Golf Sales Associate: Aureliano Faulkner Estimated blood loss (mL): 200 Pathology: other Condition: stable Disposition: PACU Procedure in detail: Patient was brought into the operating room and placed in the right lateral decubitus position. All bony prominences were well padded and the limb was prepped and draped in standard sterile fashion. Time-out was called to identify proper site procedure proper surgeon IV antibiotics and 1 g of transaxemic acid were administered. I began by making a curvilinear incision over the posterolateral aspect of the greater trochanter. Dissection was taken down to the tensor fascia which was incised in line with the incision and a Charnley retractor was placed. Cautery was used to maintain hemostasis. The hip was internally rotated and the external rotators were identified. The vessels were cauterized and a full-thickness capsular/external rotator layer was developed starting just proximal to the piriformis. This layer was tagged and a dull Hohmann retractor was placed underneath the neck in the hip was dislocated. The head was eburnated. A neck cut was made 1 cm proximal to the lesser trochanter and the head and neck were removed and measured on the back table. I then placed my anterior-posterior acetabular retractors and performed a labrectomy. The cup was sclerotic. I then started with a 46 and sequentially reamed up to a size 52 and impacted a 52 cup at approximately 45 degrees of inclination and 25 degrees of version. I then placed a 20 deg lipped liner and turned my attention to the femur. I identified the piriformis insertion and used this as a starting point for my girma cutter. The medius tendon was protected with a Hibs retractor. I then used a Charnley awl to identify the canal and a curved curette to remove the lateral bone. I irrigated copiously. I then sequentially broached in the patient's natural version to a size 4 and placed my trial implants. Using a trail head I took the hip through range of motion. I was very satisfied with the stability and length. Therefore I removed all instrumentation and copiously irrigated. I placed my final femoral implant and again took the hip through range of motion . I was satisfied with the + 0 head which was impacted in place. I then irrigated for 3 minutes with iodine and placed 1 g of local tranaxemic acid. I then performed a capsular closure with 2.0 fiberwire, Connie's fascia with 0 Vicryl, subcuticular with 2-0 Vicryl and the skin with janee. Patient was placed into a sterile dressing. Radiographs were obtained at the completion of the case and I was satisfied with the component position. Patient was extubated brought to the recovery room in stable condition.
[2021-01-29] MEDS: Dextrose 5 % and 0.45 % NaCl 1,000 ML 80 ML IVCONT (12:48)
[2021-01-29] MEDS: oxyCODONE HCl Immed Release 5 MG TABLET 10 MG PO ×2 (15:45→22:42)
[2021-01-29] MEDS: HYDROmorphone HCl 0.5 MG/0.5 ML SYRINGE IVPUSH ×3 (16:30→19:02)
--- NOTE | 2021-01-29 21:43 | PHA.MEDREC ---
Pharmacy Consult ? Medication Reconciliation Pharmacy has completed the medication reconciliation.Spoke with patient after surgery.
[2021-01-29] MEDS: lamoTRIgine 100 MG TABLET 200 MG PO (22:40)
[2021-01-29] MEDS: Zolpidem Tartrate 5 MG TABLET 10 MG PO (22:41)
[2021-01-29] MEDS: Celecoxib 200 MG CAPSULE PO (22:41)
[2021-01-29] MEDS: ALPRAZolam 0.5 MG TABLET PO (22:41)
[2021-01-29] MEDS: OXcarbazepine 300 MG TABLET 600 MG PO (22:41)
[2021-01-29] MEDS: Docusate Sodium 100 MG CAPSULE PO (22:42)
[2021-01-29] MEDS: lisinopriL 10 MG TABLET PO (22:42)
[2021-01-29] MEDS: Atorvastatin Calcium 20 MG TABLET PO (22:42)
[2021-01-30] VITALS (9 sets, daily range): BP systolic 110–133; BP diastolic 60–87; PULSE 94–102; RESP 16–18; TEMP 36.2–36.9; O2SAT 96–100
[2021-01-30] MEDS: oxyCODONE HCl Immed Release 5 MG TABLET 10 MG PO ×4 (03:15→18:28)
[2021-01-30] MEDS: Omeprazole 20 MG CAPSULE.DR PO (05:32)
[2021-01-30 06:53] LABS: MANUAL DIFF FLAG NO
[2021-01-30 06:58] LABS: Basophils Percent Auto 0.1 % (0-2); Hemoglobin 10.8 g/dl (12.0-16.0); Imm Gran Abs Auto 0.09 X10*3/uL (0.00-0.03); Imm Gran Pct Auto 0.6 % (0.0-0.4); Lymphocytes Absolute Auto 1.2 X10*3/uL (1.2-4.9); Lymphocytes Percent Auto 7.7 % (20-40); Mean Corpuscular HGB Conc 31.8 g/dl (31.0-35.0); Mean Corpuscular Hemoglobin 27.1 pg (27.0-33.0); Mean Corpuscular Volume 85.4 fL (80-98); Mean Platelet Volume 10.4 fL (9.4-12.3); Monocytes Absolute Auto 0.8 X10*3/uL (0.1-1.2); Monocytes Percent Auto 5.1 % (2-11); Neutrophils Absolute Auto 13.5 X10*3/uL (2.0-8.3); Neutrophils Percent Auto 86.5 % (45-73); Platelet Count 268 X10*3/uL (160-400); Red Blood Count 3.98 X10*6/uL (4.20-5.50); Red Cell Distribution Width 14.3 % (11.0-16.0); White Blood Count 15.6 X10*3/uL (4.8-10.8)
[2021-01-30 07:19] LABS: Anion Gap 13 (12-20); Blood Urea Nitrogen 11 mg/dL (9-16); Calcium 9.5 mg/dL (8.4-10.2); Carbon Dioxide 25 mmol/L (22-29); Chloride 103 mmol/L (96-108); Creatinine Clr Calc Pharmacy 90.4; Estimated Glomerular Filt Rate > 60; Glucose Fasting 147 mg/dL (60-99); Potassium 4.4 mmol/L (3.3-5.1); Sodium 137 mmol/L (135-145)
--- NOTE | 2021-01-30 07:58 | PM.PNORT ---
Subjective Subjective Date of Service: 01/30/21 Interval history: POD1 s/p LTHA. Patient resting comfortably in bed. No overnight events. Pain is managed. In no acute distress. Physical Exam Vital Signs: Vital Signs: Last Vital Signs Temp 97.2 F 01/30/21 07:49 Pulse 95 01/30/21 07:49 Resp 18 01/30/21 07:49 BP 104/64 01/30/21 07:49 Pulse Ox 97 01/30/21 07:49 Body Mass Index 36.4 Const: General: cooperative, healthy appearing and no acute distress Resp: Effort & Inspection: normal respiratory effort and able to speak in complete sentences Cardio: Rate: regular rate Peripheral pulses: Peripheral pulses 2+ throughout GI: Palpation (GI): Soft to palpation Skin: Lesions: no lesions Rashes: no rashes Extrem: Other: Left hip Aquacel dressing is clean, dry, and intact. Patient is able to dorsiflex and plantarflex. Sensation intact. Pedal pulse intact. Procedures Date of Service Date of Service: 01/30/21 Progress Note: A&P Assessment and plan (1) S/P total left hip arthroplasty: Status: Acute Assessment and Plan: Continue pain mgmnt Begin Coumadin for dvt ppx begin PT for LTHA Dispo planning-Pending PT eval, pain mgmnt Fall Risk Details Current Medications: Current Medications Acetaminophen (Acetaminophen 325 Mg Tablet) 650 mg PO Q6H PRN PRN Reason: Pain, Mild (Pain Scale 1-3) Albuterol Sulfate (Albuterol Sulfate 90 Mcg 8 Gm Inhaler) 2 puff INHALE Q6H PRN PRN Reason: Shortness Of Breath Or Wheezing Alprazolam (Alprazolam 0.5 Mg Tablet) 0.5 mg PO QID [facility] Last Admin: 01/29/21 22:41 Dose: 0.5 mg Documented by: Atorvastatin Calcium (Atorvastatin Calcium 20 Mg Tablet) 20 mg PO BEDTIME [facility] Last Admin: 01/29/21 22:42 Dose: 20 mg Documented by: Atorvastatin Calcium (Atorvastatin Calcium 40 Mg Tablet) 40 mg PO BEDTIME [facility] Celecoxib (Celecoxib 200 Mg Capsule) 200 mg PO BID [facility] Last Admin: 01/29/21 22:41 Dose: 200 mg Documented by: Cyclobenzaprine HCl (Cyclobenzaprine Hcl 5 Mg Tablet) 5 mg PO TID PRN PRN Reason: Pain Docusate Sodium (Docusate Sodium 100 Mg Capsule) 100 mg PO BID [facility] Last Admin: 01/29/21 22:42 Dose: 100 mg Documented by: Enoxaparin Sodium (Enoxaparin Sodium 40 Mg/0.4 Ml Syringe) 40 mg SUBCUT Q24H [facility] Fluticasone Propionate (Fluticasone Propionate 250 Mcg Blst.W.Dev) 1 puff INHALE RBID [facility] Gabapentin (Gabapentin 600 Mg Tablet) 600 mg PO TID [facility] Hydromorphone HCl (Hydromorphone Hcl 0.5 Mg/0.5 Ml Syringe) 0.5 mg IVPUSH Q5M PRN; Protocol PRN Reason: Pain, Severe (Pain Scale 7-10) Last Admin: 01/29/21 19:02 Dose: 0.5 mg Documented by: Hydromorphone HCl (Hydromorphone Hcl 0.5 Mg/0.5 Ml Syringe) 0.5 mg IVPUSH Q5M PRN; Protocol PRN Reason: Pain, Severe (Pain Scale 7-10) Hydromorphone HCl (Hydromorphone Hcl 0.5 Mg/0.5 Ml Syringe) 0.25 mg IVPUSH Q4H PRN; Protocol PRN Reason: Pain, Severe (Pain Scale 7-10) Dextrose/Sodium Chloride (D51/2ns) 1,000 mls @ 80 mls/hr IVCONT .[id number] [facility] Last Admin: 01/29/21 12:48 Dose: 80 mls/hr Documented by: Lamotrigine (Lamotrigine 100 Mg Tablet) 200 mg PO BEDTIME [facility] Last Admin: 01/29/21 22:40 Dose: 200 mg Documented by: Lisinopril (Lisinopril 10 Mg Tablet) 10 mg PO BEDTIME [facility]; Protocol Last Admin: 01/29/21 22:42 Dose: 10 mg Documented by: Nicotine (Nicotine 21 Mg Patch.Td24) 21 mg TRANSDERMA DAILY [facility] Omeprazole (Omeprazole 20 Mg Capsule.Dr) 20 mg PO DAILY@0630 [facility] Last Admin: 01/30/21 05:32 Dose: 20 mg Documented by: Oxcarbazepine (Oxcarbazepine 300 Mg Tablet) 600 mg PO BEDTIME [facility] Last Admin: 01/29/21 22:41 Dose: 600 mg Documented by: Oxycodone HCl (Oxycodone Hcl Immed Release 5 Mg Tablet) 10 mg PO Q4H PRN PRN Reason: Pain, Moderate (Pain Scale 4-6 Last Admin: 01/30/21 07:21 Dose: 10 mg Documented by: Oxycodone HCl (Oxycodone Hcl Er 10 Mg Tab.Er.12h) 10 mg PO BID [facility] Last Admin: 01/29/21 22:43 Dose: 10 mg Documented by: Pharmacy Consult (Consult Rx Vancomycin Dosing) 1 each MISCELLANE DAILY PRN PRN Reason: Consult order Quetiapine Fumarate (Quetiapine Fumarate 50 Mg Tablet) 50 mg PO BEDTIME [facility] Sodium Chloride (0.9 % Sodium Chloride Flush 3 Ml Syringe) 3 ml IVFLUSH QSHIFT [facility] Last Admin: 01/30/21 07:19 Dose: Not Given Documented by: Sumatriptan Succinate (Sumatriptan Succinate 50 Mg Tablet) 50 mg PO DAILY PRN PRN Reason: Migraine Headache Tiotropium Metz (Tiotropium Metz 18 Mcg Cap.W.Dev) 1 puff INHALE RDAILY [facility] Vitamin D (Cholecalciferol (Vitamin D3) 25 Mcg Tablet) 25 mcg PO DAILY [facility] Zolpidem Tartrate (Zolpidem Tartrate 5 Mg Tablet) 10 mg PO BEDTIME [facility] Time Spent With Patient Time: Total time spent is greater than 50% in coordination of care (as documented) at patient's floor/unit and/or counseling patient: Time with patient: less than 15 minutes Quality Stroke Does the patient have a stroke diagnosis?: No VTE Prior VTE?: No VTE Risk Level:: Surgical - very high VTE Device Contraindication: N/A - Device Ordered VTE Drug Contraindication: N/A - Med Ordered
[2021-01-30 09:35] LABS: Prothrombin Time 10.8 SEC (9.9-13.0)
--- NOTE | 2021-01-30 09:56 | PM.IMCN ---
History of Present Illness Data of Consult Service Date: 01/30/21 Primary Care Provider: Nicky Thibodeaux MD [facility] Reason for consult: COPD, Medical management This is a 55 yo F with a PMH of COPD, history of TIA, HLD, HTN, Nicotine dependence, OA who is admitted s/p L MARISELA under the orthopedic services. Medical consult sought for management of her COPD and medical issues. Patient is seen and examined in her room. She reports anxiety but otherwise okay. In regards to her COPD, she reports that she is only on a PRN medication (although pulm notes from September state that she is to be on Spiriva + flovent + albuterol). She reports she continues to smoke. She denies any sob at this time. Review of Systems Review of Systems: General - no fevers or chills Cardiovascular - no chest pain Respiratory - no shortness of breath or cough Abdominal- no abdominal pain, nausea, vomiting, diarrhea Psych - +anxiety Yes all other systems are reviewed and are negative [facility] Medical History Anxiety and depression Chronic headaches COPD (chronic obstructive pulmonary disease) History of panic attacks History of TIA (transient ischemic attack) (~2019) Hyperlipidemia Hypertension Low back pain Neck pain Nicotine dependence, cigarettes, uncomplicated (~1978) Osteoarthritis of left hip Personal history of nicotine dependence (~1978) Poor dentition Uses roller walker Pertinent family history: denies any significant family history Surgical History History of appendectomy (~02/13/02) Status post total hip replacement, right (~04/26/13) Social History Household Members: None Housing: Apartment Are you a primary career services officer to a significant other at home: No Do you presently have visiting nurse or other home services: No Patient Tobacco Use Status: Current everyday Tobacco user Tobacco use type: Cigarette Cigarette Packs Per Day: 1 Cigarettes Per Day: 20.0 Years Smoked: 42 Smoked in Last 30 Days: Yes Patient Interested in Nicotine Replacement: Yes Patient Given Instructions on How to Stop Smoking: Yes Date Education Initiated: 01/29/21 Second Hand Smoke Exposure: No Use of substances other than those prescribed or required for medical reasons: No Currently Displaying Signs/Symptoms of Drug Intoxication Withdrawal: No Have you been hit, kicked, punched, or otherwise hurt by someone within the past year? If so, by whom?: No Spiritual Healthcare Practices: no Synagogue Healthcare Practices: no Cultural Healthcare Practices: no Are you DNR?: No Advance Directives: No Advance Directives Information Provided: Yes (info given) Advance Directives on File: No Do you have thoughts of harming others: None Do you have a plan to hurt others: No Plan Recently lost weight without trying: No Nutrition Risks: No Nutritional Risk Patient : No : No Poor oral hygiene: No Current occupational status: unemployed Current occupation: Right Handed Meds Allergies Allergy/AdvReac Type Severity Reaction Status Date / Time aspirin [ASPIRIN] Allergy Mild GI UPSET Verified 01/29/21 08:02 ibuprofen [IBUPROFEN] Allergy Mild GI UPSET Verified 01/29/21 08:02 Active Medications: Current Medications Acetaminophen (Acetaminophen 325 Mg Tablet) 650 mg PO Q6H PRN PRN Reason: Pain, Mild (Pain Scale 1-3) Albuterol Sulfate (Albuterol Sulfate 90 Mcg 8 Gm Inhaler) 2 puff INHALE Q6H PRN PRN Reason: Shortness Of Breath Or Wheezing Alprazolam (Alprazolam 0.5 Mg Tablet) 0.5 mg PO QID [facility] Last Admin: 01/29/21 22:41 Dose: 0.5 mg Documented by: Atorvastatin Calcium (Atorvastatin Calcium 20 Mg Tablet) 20 mg PO BEDTIME [facility] Last Admin: 01/29/21 22:42 Dose: 20 mg Documented by: Atorvastatin Calcium (Atorvastatin Calcium 40 Mg Tablet) 40 mg PO BEDTIME [facility] Celecoxib (Celecoxib 200 Mg Capsule) 200 mg PO BID [facility] Last Admin: 01/29/21 22:41 Dose: 200 mg Documented by: Cyclobenzaprine HCl (Cyclobenzaprine Hcl 5 Mg Tablet) 5 mg PO TID PRN PRN Reason: Pain Docusate Sodium (Docusate Sodium 100 Mg Capsule) 100 mg PO BID [facility] Last Admin: 01/29/21 22:42 Dose: 100 mg Documented by: Fluticasone Propionate (Fluticasone Propionate 250 Mcg Blst.W.Dev) 1 puff INHALE RBID [facility] Last Admin: 01/30/21 08:28 Dose: Not Given Documented by: Gabapentin (Gabapentin 600 Mg Tablet) 600 mg PO TID [facility] Hydromorphone HCl (Hydromorphone Hcl 0.5 Mg/0.5 Ml Syringe) 0.5 mg IVPUSH Q5M PRN; Protocol PRN Reason: Pain, Severe (Pain Scale 7-10) Last Admin: 01/29/21 19:02 Dose: 0.5 mg Documented by: Hydromorphone HCl (Hydromorphone Hcl 0.5 Mg/0.5 Ml Syringe) 0.5 mg IVPUSH Q5M PRN; Protocol PRN Reason: Pain, Severe (Pain Scale 7-10) Hydromorphone HCl (Hydromorphone Hcl 0.5 Mg/0.5 Ml Syringe) 0.25 mg IVPUSH Q4H PRN; Protocol PRN Reason: Pain, Severe (Pain Scale 7-10) Dextrose/Sodium Chloride (D51/2ns) 1,000 mls @ 80 mls/hr IVCONT .[id number] [facility] Last Admin: 01/29/21 12:48 Dose: 80 mls/hr Documented by: Lamotrigine (Lamotrigine 100 Mg Tablet) 200 mg PO BEDTIME [facility] Last Admin: 01/29/21 22:40 Dose: 200 mg Documented by: Lisinopril (Lisinopril 10 Mg Tablet) 10 mg PO BEDTIME [facility]; Protocol Last Admin: 01/29/21 22:42 Dose: 10 mg Documented by: Nicotine (Nicotine 21 Mg Patch.Td24) 21 mg TRANSDERMA DAILY [facility] Omeprazole (Omeprazole 20 Mg Capsule.Dr) 20 mg PO DAILY@0630 [facility] Last Admin: 01/30/21 05:32 Dose: 20 mg Documented by: Oxcarbazepine (Oxcarbazepine 300 Mg Tablet) 600 mg PO BEDTIME [facility] Last Admin: 01/29/21 22:41 Dose: 600 mg Documented by: Oxycodone HCl (Oxycodone Hcl Immed Release 5 Mg Tablet) 10 mg PO Q4H PRN PRN Reason: Pain, Moderate (Pain Scale 4-6 Last Admin: 01/30/21 07:21 Dose: 10 mg Documented by: Oxycodone HCl (Oxycodone Hcl Er 10 Mg Tab.Er.12h) 10 mg PO BID [facility] Last Admin: 01/29/21 22:43 Dose: 10 mg Documented by: Pharmacy Consult (Consult Rx Vancomycin Dosing) 1 each MISCELLANE DAILY PRN PRN Reason: Consult order Quetiapine Fumarate (Quetiapine Fumarate 50 Mg Tablet) 50 mg PO BEDTIME [facility] Sodium Chloride (0.9 % Sodium Chloride Flush 3 Ml Syringe) 3 ml IVFLUSH QSHIFT [facility] Last Admin: 01/30/21 07:19 Dose: Not Given Documented by: Sumatriptan Succinate (Sumatriptan Succinate 50 Mg Tablet) 50 mg PO DAILY PRN PRN Reason: Migraine Headache Tiotropium [place] (Tiotropium [place] 18 Mcg Cap.W.Dev) 1 puff INHALE RDAILY [facility] Last Admin: 01/30/21 08:28 Dose: Not Given Documented by: Vitamin D (Cholecalciferol (Vitamin D3) 25 Mcg Tablet) 25 mcg PO DAILY [facility] Warfarin Sodium (Warfarin Sodium 5 Mg Tablet) 5 mg PO DAILY@1800 [facility] Zolpidem Tartrate (Zolpidem Tartrate 5 Mg Tablet) 10 mg PO BEDTIME [facility] Home Medications Medication Instructions Recorded Confirmed Last Taken Type cyclobenzaprine 5 mg tablet 5 mg PO TID PRN 03/12/20 01/29/21 Unknown History alprazolam 0.5 mg tablet (Xanax) 0.5 mg PO QID tab 07/23/20 01/16/21 01/28/21 History lisinopril 10 mg tablet 10 mg PO BEDTIME 07/23/20 01/16/21 01/28/21 History albuterol sulfate 90 mcg/actuation 2 puff INHALATION Q6H PRN 08/21/20 01/16/21 01/28/21 History aerosol inhaler (ProAir HFA) fluticasone propionate 220 1 puff INHALATION BID 08/21/20 01/16/21 01/28/21 History mcg/actuation HFA aerosol inhaler (Flovent HFA) tiotropium bromide 18 mcg capsule 1 cap INHALATION DAILY 08/21/20 01/16/21 01/28/21 History with inhalation device (Spiriva with HandiHaler) oxcarbazepine 600 mg tablet 600 mg PO BEDTIME 01/16/21 01/23/21 01/28/21 History lamotrigine 200 mg tablet 200 mg PO BEDTIME 01/23/21 01/23/21 01/28/21 History acetaminophen 500 mg tablet 1 tab PO Q8H PRN 01/29/21 01/29/21 Unknown History atorvastatin 40 mg tablet 40 mg PO BEDTIME 01/29/21 01/29/21 01/28/21 History cholecalciferol (vitamin D3) 25 1 cap PO DAILY 01/29/21 01/29/21 01/28/21 History mcg (1,000 unit) capsule (Vitamin D3) diclofenac sodium 75 mg 1 tab PO BID PRN 01/29/21 01/29/21 Unknown History tablet,delayed release gabapentin 600 mg tablet 600 mg PO TID 01/29/21 01/29/21 01/28/21 History hydrocodone 5 mg-acetaminophen 325 1 tab PO Q6H PRN 01/29/21 01/29/21 Unknown History mg tablet lidocaine 5 % topical patch 1 patch TOPICAL DAILY PRN 01/29/21 01/29/21 Unknown History nicotine 21 mg/24 hr daily 1 patch TRANSDERMAL DAILY 01/29/21 01/29/21 01/29/21 History transdermal patch omeprazole 20 mg capsule,delayed 1 cap PO DAILY@0630 01/29/21 01/29/21 01/28/21 History release quetiapine 50 mg tablet 50 mg PO BEDTIME 01/29/21 01/29/21 01/28/21 History 50 mg sumatriptan succinate 50 mg tablet 50 mg PO DAILY PRN 01/29/21 01/29/21 01/28/21 History zolpidem 10 mg tablet 1 tab PO BEDTIME 01/29/21 01/29/21 Unknown History Physical Exam Vital Signs and Narrative: Vital Signs: Last Vital Signs Temp 97.2 F 01/30/21 07:49 Pulse 95 01/30/21 07:49 Resp 18 01/30/21 07:49 BP 132/79 01/30/21 07:49 Pulse Ox 97 01/30/21 07:49 Body Mass Index 36.4 Const: Other: Constitutional - Awake and Alert, No apparent distress Eyes - PERRLA, EOMI Cardiovascular - S1S2, RRR, No edema Respiratory - Normal lung expansion, Normal respiratory effort, No respiratory distress, CTA bilaterally Gastrointestinal - NT / ND; +BS; No rebound or guarding - No CVA tenderness Extremities - L hip dressing C/D/I Musculoskeletal - Normal inspection, normal ROM Skin - Warm/Dry Neurological - Alert & oriented x3, No focal deficit Psychological - Appropriate affect Results Labs CBC and Chem 7: 01/30/21 06:39 01/30/21 06:39 Labs: Laboratory Results - last 24 hr 01/30/21 01/30/21 01/30/21 06:39 06:39 09:20 MCV 85.4 MCH 27.1 MCHC 31.8 RDW 14.3 Plt Count 268 MPV 10.4 Immature Gran % (Auto) 0.6 H Neut % (Auto) 86.5 H Lymph % (Auto) 7.7 L [place] % (Auto) 5.1 Eos % (Auto) 0.0 Baso % (Auto) 0.1 Lymph # (Auto) 1.2 [place] # (Auto) 0.8 Eos # (Auto) 0.0 Baso # (Auto) 0.0 Abs Immat Gran (auto) 0.09 H Absolute Neuts (auto) 13.5 H Absolute Nucleated RBC 0.000 Nucleated RBC % (auto) 0.0 PT 10.8 INR 1.0 Anion Gap 13 Estim Creat Clear Calc 90.4 Estimated GFR > 60 Fasting Glucose 147 H Calcium 9.5 Imaging Radiologist's Impressions: Impressions Pelvis X-Ray 01/29/21 11:20 IMPRESSION: New left hip replacement in satisfactory position. Assessment and Plan (1) S/P total left hip arthroplasty: Status: Acute This is a 55 yo F with a PMH of morbid obesity, COPD, active tobacco use, HTN, HLD, OA - s/p L MARISELA who is admitted post-op under the orthopedic services. Medical services consulted for her COPD / medical issues. 1. COPD not in exacerbation continue inhalers 2.Leukocytosis likely reactive monitor for fevers 3. Tobacco use patch cessation advised 4. HTN lisinopril 5. Mood continue his baseline meds 6. OA - s/p L MARISELA mgmt per ortho Medically stable at this time -- will sign off. Please reconsult PRN.
[2021-01-30] MEDS: Nicotine 21 MG PATCH.TD24 TRANSDERMA (10:47)
[2021-01-30] MEDS: Docusate Sodium 100 MG CAPSULE PO ×2 (10:48→21:01)
[2021-01-30] MEDS: oxyCODONE HCl ER 10 MG TAB.ER.12H PO ×2 (10:49→21:00)
[2021-01-30] MEDS: Cholecalciferol (Vitamin D3) 25 MCG TABLET PO (10:50)
[2021-01-30] MEDS: ALPRAZolam 0.5 MG TABLET PO ×4 (10:51→20:59)
--- NOTE | 2021-01-30 15:14 | HO.POSTANES ---
Post Anesthesia Evaluation Post Anesthesia Evaluation Vital Signs: Vital Signs Temp Pulse Resp BP Pulse Ox 01/30/21 14:06 95 113/66 97 01/30/21 11:41 98 F 95 18 113/66 97 01/30/21 07:49 97.2 F 95 18 132/79 97 01/30/21 07:21 102 H 110/63 96 01/30/21 03:52 97.4 F 102 H 16 110/63 96 Anesthesia: Spinal Mental Status: Awake Pain Control: Satisfactory Nausea/Vomiting: None Hydration: Adequate Anesthesia-Related Issues: No Anes. Related Issues
--- NOTE | 2021-01-30 15:25 | MHC.CM.PN ---
PATIENT LIVES WITH HER DAUGHTER/HCP (NOW IN CHART) SHE HAS A CANE AND WALKER IN THE HOME. SHE IS NOT VACCINATED AGAINST COVID-19. PATIENT ASKS FOR A REFERRAL TO [facility] NOW PLACED. SHE IS AWARE THAT VACCINATION STATUS MAY POSE A BARRIER
[2021-01-30] MEDS: 0.9 % Sodium Chloride Flush 3 ML SYRINGE IVFLUSH (15:47)
[2021-01-30] MEDS: Warfarin Sodium 5 MG TABLET PO (17:12)
[2021-01-30] MEDS: Acetaminophen 325 MG TABLET 650 MG PO (17:12)
[2021-01-30] MEDS: OXcarbazepine 300 MG TABLET 600 MG PO (20:58)
[2021-01-30] MEDS: Zolpidem Tartrate 5 MG TABLET 10 MG PO (20:59)
[2021-01-30] MEDS: lamoTRIgine 100 MG TABLET 200 MG PO (21:00)
[2021-01-30] MEDS: QUEtiapine Fumarate 50 MG TABLET PO (21:01)
[2021-01-30] MEDS: lisinopriL 10 MG TABLET PO (21:01)
[2021-01-30] MEDS: Celecoxib 200 MG CAPSULE PO (21:01)
[2021-01-30] MEDS: Atorvastatin Calcium 20 MG TABLET PO (21:01)
[2021-01-30] MEDS: Atorvastatin Calcium 40 MG TABLET PO (21:02)
[2021-01-31] VITALS (10 sets, daily range): BP systolic 94–110; BP diastolic 50–75; PULSE 95–113; RESP 16–18; TEMP 36.2–37.1; O2SAT 88–99
[2021-01-31] MEDS: 0.9 % Sodium Chloride Flush 3 ML SYRINGE IVFLUSH ×2 (00:27→08:50)
[2021-01-31] MEDS: oxyCODONE HCl Immed Release 5 MG TABLET 10 MG PO ×4 (00:32→17:53)
[2021-01-31] MEDS: Omeprazole 20 MG CAPSULE.DR PO (06:37)
[2021-01-31 08:00] LABS: MANUAL DIFF FLAG NO
[2021-01-31 08:08] LABS: Basophils Percent Auto 0.3 % (0-2); Eosinophils Absolute Auto 0.1 X10*3/uL (0.0-0.4); Hemoglobin 8.8 g/dl (12.0-16.0); Imm Gran Abs Auto 0.04 X10*3/uL (0.00-0.03); Imm Gran Pct Auto 0.4 % (0.0-0.4); Lymphocytes Absolute Auto 2.1 X10*3/uL (1.2-4.9); Lymphocytes Percent Auto 23.8 % (20-40); Mean Corpuscular HGB Conc 31.4 g/dl (31.0-35.0); Mean Corpuscular Volume 85.9 fL (80-98); Mean Platelet Volume 10.2 fL (9.4-12.3); Monocytes Absolute Auto 0.5 X10*3/uL (0.1-1.2); Monocytes Percent Auto 5.8 % (2-11); Neutrophils Absolute Auto 6.1 X10*3/uL (2.0-8.3); Neutrophils Percent Auto 68.7 % (45-73); Platelet Count 169 X10*3/uL (160-400); Red Blood Count 3.26 X10*6/uL (4.20-5.50); Red Cell Distribution Width 14.7 % (11.0-16.0); White Blood Count 8.9 X10*3/uL (4.8-10.8)
[2021-01-31 08:10] LABS: INTERNATIONAL NORM RATIO 0.9 (0.9-1.1); Prothrombin Time 10.5 SEC (9.9-13.0)
[2021-01-31 08:24] LABS: Anion Gap 10 (12-20); Blood Urea Nitrogen 9 mg/dL (9-16); Calcium 8.2 mg/dL (8.4-10.2); Carbon Dioxide 28 mmol/L (22-29); Chloride 106 mmol/L (96-108); Creatinine Clr Calc Pharmacy 92.6; Estimated Glomerular Filt Rate > 60; Glucose Fasting 114 mg/dL (60-99); Potassium 3.9 mmol/L (3.3-5.1); Sodium 140 mmol/L (135-145)
[2021-01-31] MEDS: Cholecalciferol (Vitamin D3) 25 MCG TABLET PO (08:49)
[2021-01-31] MEDS: ALPRAZolam 0.5 MG TABLET PO ×4 (08:49→21:35)
[2021-01-31] MEDS: Celecoxib 200 MG CAPSULE PO ×2 (08:49→21:37)
[2021-01-31] MEDS: Nicotine 21 MG PATCH.TD24 TRANSDERMA (08:49)
[2021-01-31] MEDS: Docusate Sodium 100 MG CAPSULE PO ×2 (08:50→21:36)
[2021-01-31] MEDS: oxyCODONE HCl ER 10 MG TAB.ER.12H PO ×2 (08:50→21:35)
[2021-01-31] MEDS: 0.9 % Sodium Chloride 1,000 ML 999 ML IV (11:27)
--- NOTE | 2021-01-31 15:16 | MHC.CM.PN ---
Addendum entered by Dedra Mckenna 01/31/21 16:12: [facility] IS UNABLE TO OFFER. PLAN MAY BE HOME WITH SERVICES. SURGICAL P.A. AND PATIENT MADE AWARE. REFERRAL TO [facility] TO ASK IF THEY CAN OFFER HOME P.T. SERVICES Original Note: PATIENT AWARE THAT [facility] IS CURRENTLY THE ONLY REFERRAL THAT HAS A NON-VACCINATED BED TO OFFER. CASE IN CURRENTLY IN REVIEW AT FACILITY. IF THEY CAN OFFER, IT WILL BE ON THURSDAY. PATIENT AWARE OF 14 DAYS WITH NO VISITORS AND NO SMOKING WILL BE ALLOWED. CASE MANAGEMENT TO FOLLOW UP ONCE PROGRESS IS MADE
[2021-01-31] MEDS: Warfarin Sodium 5 MG TABLET PO (17:52)
--- NOTE | 2021-01-31 18:00 | PC.NURSE ---
patient refses bed alarm and telesitter,risk of falling explained
--- NOTE | 2021-01-31 19:39 | PM.PNORT ---
Subjective Subjective Date of Service: 01/31/21 Interval history: ?POD2 s/p LTHA. Patient resting comfortably in bed. No overnight events. Pain is managed. In no acute distress. Physical Exam Vital Signs: Vital Signs: Last Vital Signs Temp 98.8 F 01/31/21 19:21 Pulse 110 H 01/31/21 19:21 Resp 16 01/31/21 19:21 BP 94/64 01/31/21 19:21 Pulse Ox 97 01/31/21 19:21 Body Mass Index 36.4 Const: General: cooperative, healthy appearing and no acute distress Resp: Effort & Inspection: normal respiratory effort and able to speak in complete sentences Cardio: Rate: regular rate Peripheral pulses: Peripheral pulses 2+ throughout GI: Palpation (GI): Soft to palpation Skin: General skin exam: no rashes or lesions noted Extrem: Other: incision clean dry and intact. Koko intact. No erythema or effusion. Calf supple nontender. Neurovascularly intact. Procedures Date of Service Date of Service: 01/31/21 Progress Note: A&P Assessment and plan (1) S/P total left hip arthroplasty: Status: Acute Assessment and Plan: Continue pain mgmnt Begin Coumadin for dvt ppx begin PT for LTHA Dispo planning-Pending PT eval, pain mgmnt Fall Risk Details Current Medications: Current Medications Acetaminophen (Acetaminophen 325 Mg Tablet) 650 mg PO Q6H PRN PRN Reason: Pain, Mild (Pain Scale 1-3) Last Admin: 01/30/21 17:12 Dose: 650 mg Documented by: Albuterol Sulfate (Albuterol Sulfate 90 Mcg 8 Gm Inhaler) 2 puff INHALE Q6H PRN PRN Reason: Shortness Of Breath Or Wheezing Alprazolam (Alprazolam 0.5 Mg Tablet) 0.5 mg PO QID [facility] Last Admin: 01/31/21 17:53 Dose: 0.5 mg Documented by: Atorvastatin Calcium (Atorvastatin Calcium 20 Mg Tablet) 20 mg PO BEDTIME [facility] Last Admin: 01/30/21 21:01 Dose: 20 mg Documented by: Atorvastatin Calcium (Atorvastatin Calcium 40 Mg Tablet) 40 mg PO BEDTIME [facility] Last Admin: 01/30/21 21:02 Dose: 40 mg Documented by: Celecoxib (Celecoxib 200 Mg Capsule) 200 mg PO BID [facility] Last Admin: 01/31/21 08:49 Dose: 200 mg Documented by: Cyclobenzaprine HCl (Cyclobenzaprine Hcl 5 Mg Tablet) 5 mg PO TID PRN PRN Reason: Pain Docusate Sodium (Docusate Sodium 100 Mg Capsule) 100 mg PO BID [facility] Last Admin: 01/31/21 08:50 Dose: 100 mg Documented by: Fluticasone Propionate (Fluticasone Propionate 250 Mcg Blst.W.Dev) 1 puff INHALE RBID [facility] Last Admin: 01/31/21 08:24 Dose: Not Given Documented by: Gabapentin (Gabapentin 600 Mg Tablet) 600 mg PO TID [facility] Last Admin: 01/31/21 14:52 Dose: Not Given Documented by: Hydromorphone HCl (Hydromorphone Hcl 0.5 Mg/0.5 Ml Syringe) 0.5 mg IVPUSH Q5M PRN; Protocol PRN Reason: Pain, Severe (Pain Scale 7-10) Last Admin: 01/29/21 19:02 Dose: 0.5 mg Documented by: Hydromorphone HCl (Hydromorphone Hcl 0.5 Mg/0.5 Ml Syringe) 0.5 mg IVPUSH Q5M PRN; Protocol PRN Reason: Pain, Severe (Pain Scale 7-10) Lamotrigine (Lamotrigine 100 Mg Tablet) 200 mg PO BEDTIME [facility] Last Admin: 01/30/21 21:00 Dose: 200 mg Documented by: Nicotine (Nicotine 21 Mg Patch.Td24) 21 mg TRANSDERMA DAILY [facility] Last Admin: 01/31/21 08:49 Dose: 21 mg Documented by: Omeprazole (Omeprazole 20 Mg Capsule.) 20 mg PO DAILY@0630 [facility] Last Admin: 01/31/21 06:37 Dose: 20 mg Documented by: Oxcarbazepine (Oxcarbazepine 300 Mg Tablet) 600 mg PO BEDTIME [facility] Last Admin: 01/30/21 20:58 Dose: 600 mg Documented by: Oxycodone HCl (Oxycodone Hcl Immed Release 5 Mg Tablet) 10 mg PO Q4H PRN PRN Reason: Pain, Moderate (Pain Scale 4-6 Last Admin: 01/31/21 17:53 Dose: 10 mg Documented by: Oxycodone HCl (Oxycodone Hcl Er 10 Mg Tab.Er.12h) 10 mg PO BID [facility] Last Admin: 10/14/21 08:50 Dose: 10 mg Documented by: Pharmacy Consult (Consult Rx Vancomycin Dosing) 1 each MISCELLANE DAILY PRN PRN Reason: Consult order Quetiapine Fumarate (Quetiapine Fumarate 50 Mg Tablet) 50 mg PO BEDTIME [facility] Last Admin: 01/30/21 21:01 Dose: 50 mg Documented by: Sodium Chloride (0.9 % Sodium Chloride Flush 3 Ml Syringe) 3 ml IVFLUSH QSHIFT [facility] Last Admin: 01/31/21 17:51 Dose: Not Given Documented by: Sumatriptan Succinate (Sumatriptan Succinate 50 Mg Tablet) 50 mg PO DAILY PRN PRN Reason: Migraine Headache Tiotropium [place] (Tiotropium [place] 18 Mcg Cap.W.Dev) 1 puff INHALE RDAILY [facility] Last Admin: 01/31/21 08:25 Dose: Not Given Documented by: Vitamin D (Cholecalciferol (Vitamin D3) 25 Mcg Tablet) 25 mcg PO DAILY [facility] Last Admin: 01/31/21 08:49 Dose: 25 mcg Documented by: Warfarin Sodium (Warfarin Sodium 5 Mg Tablet) 5 mg PO DAILY@1800 [facility] Last Admin: 01/31/21 17:52 Dose: 5 mg Documented by: Zolpidem Tartrate (Zolpidem Tartrate 5 Mg Tablet) 10 mg PO BEDTIME [facility] Last Admin: 01/30/21 20:59 Dose: 10 mg Documented by: Time Spent With Patient Time: Total time spent is greater than 50% in coordination of care (as documented) at patient's floor/unit and/or counseling patient: Time with patient: less than 15 minutes Quality Stroke Does the patient have a stroke diagnosis?: No VTE Prior VTE?: No VTE Risk Level:: Surgical - very high VTE Device Contraindication: N/A - Device Ordered VTE Drug Contraindication: N/A - Med Ordered
[2021-01-31] MEDS: OXcarbazepine 300 MG TABLET 600 MG PO (21:35)
[2021-01-31] MEDS: Atorvastatin Calcium 40 MG TABLET PO (21:36)
[2021-01-31] MEDS: Zolpidem Tartrate 5 MG TABLET 10 MG PO (21:36)
[2021-01-31] MEDS: lamoTRIgine 100 MG TABLET 200 MG PO (21:36)
[2021-01-31] MEDS: QUEtiapine Fumarate 50 MG TABLET PO (21:36)
[2021-01-31] MEDS: Gabapentin 600 MG TABLET PO (21:36)
[2021-01-31] MEDS: Atorvastatin Calcium 20 MG TABLET PO (21:36)
[2021-02-01 03:11] VITALS: BP 115/64; PULSE 113; RESP 17; TEMP 36.9; O2SAT 94
[2021-02-01] MEDS: Omeprazole 20 MG CAPSULE.DR PO (05:54)
[2021-02-01 06:30] LABS: MANUAL DIFF FLAG NO
[2021-02-01 06:41] LABS: Basophils Percent Auto 0.3 % (0-2); Eosinophils Absolute Auto 0.1 X10*3/uL (0.0-0.4); Eosinophils Percent Auto 1.1 % (0-4); Hematocrit 31.2 % (37-47); Hemoglobin 9.8 g/dl (12.0-16.0); Imm Gran Abs Auto 0.08 X10*3/uL (0.00-0.03); Imm Gran Pct Auto 0.8 % (0.0-0.4); Lymphocytes Absolute Auto 2.2 X10*3/uL (1.2-4.9); Lymphocytes Percent Auto 21.7 % (20-40); Mean Corpuscular HGB Conc 31.4 g/dl (31.0-35.0); Mean Corpuscular Hemoglobin 27.5 pg (27.0-33.0); Mean Corpuscular Volume 87.4 fL (80-98); Mean Platelet Volume 11.1 fL (9.4-12.3); Monocytes Absolute Auto 0.6 X10*3/uL (0.1-1.2); Monocytes Percent Auto 5.8 % (2-11); Neutrophils Absolute Auto 7.1 X10*3/uL (2.0-8.3); Neutrophils Percent Auto 70.3 % (45-73); Platelet Count 237 X10*3/uL (160-400); Red Blood Count 3.57 X10*6/uL (4.20-5.50); Red Cell Distribution Width 14.7 % (11.0-16.0); White Blood Count 10.1 X10*3/uL (4.8-10.8)
[2021-02-01 07:03] LABS: INTERNATIONAL NORM RATIO 1.1 (0.9-1.1); Prothrombin Time 12.4 SEC (9.9-13.0)
[2021-02-01 07:08] LABS: Anion Gap 15 (12-20); Blood Urea Nitrogen 14 mg/dL (9-16); Calcium 8.8 mg/dL (8.4-10.2); Carbon Dioxide 25 mmol/L (22-29); Chloride 103 mmol/L (96-108); Creatinine Clr Calc Pharmacy 56.9; Estimated Glomerular Filt Rate 41; Glucose Fasting 107 mg/dL (60-99); Potassium 4.4 mmol/L (3.3-5.1); Sodium 139 mmol/L (135-145)
[2021-02-01] MEDS: Fluticasone Propionate 250 MCG BLST.W.DEV 1 PUFF INHALE (07:25)
[2021-02-01 07:26] VITALS: O2SAT 94
[2021-02-01 08:00] VITALS: BP 125/82; PULSE 99; RESP 16; TEMP 36.8; O2SAT 96
[2021-02-01] MEDS: oxyCODONE HCl Immed Release 5 MG TABLET 10 MG PO ×2 (08:17→14:12)
[2021-02-01] MEDS: Nicotine 21 MG PATCH.TD24 TRANSDERMA (08:17)
[2021-02-01] MEDS: Cholecalciferol (Vitamin D3) 25 MCG TABLET PO (08:18)
[2021-02-01] MEDS: Docusate Sodium 100 MG CAPSULE PO (08:18)
[2021-02-01] MEDS: Celecoxib 200 MG CAPSULE PO (08:18)
[2021-02-01] MEDS: oxyCODONE HCl ER 10 MG TAB.ER.12H PO (08:18)
[2021-02-01] MEDS: ALPRAZolam 0.5 MG TABLET PO ×2 (08:18→14:12)
[2021-02-01 09:17] VITALS: BP 125/82; PULSE 99; O2SAT 96
[2021-02-01 11:11] VITALS: BP 106/58; PULSE 105; RESP 16; TEMP 36.3; O2SAT 91
--- NOTE | 2021-02-01 11:55 | W.MHC.F2F ---
Service Date Service Date: 02/01/21 Encounter Date of encounter: 02/01/21 Reasons for Services Reason for fdc: monitoring of PT/INR and medication management Reason for physical therapy: home safety and mobility, therapeutic exercises, restore joint function, gait/transfer training, ADL training and energy conservation Reason for occupational therapy: home safety and mobility, therapeutic exercises, restore joint function, gait/transfer training, ADL training and energy conservation Overseeing Care: William Neal Homebound: Leaving the home is medically contraindicated at this time without the asist of a device and/or another person due th the listed conditions above and below. Reason homebound: unsteady gait / fall risk, leg weakness, pain with ambulation, poor balance / fall risk and unable to drive Homebound supporting statement: Pt. is considered home bound due to recent surgery. Unable to drive, poor balance, poor gait mechanics. Certification: Based on the above findings, I certify that this patient is confined to the home and needs intermittent fdc care, physical therapy and/or speech therapy, or continues to need occupational therapy. The patient is under my care, and I have initiated the establishment of the plan of care. The patient will be followed by a physician who will periodically review the plan of care.
--- NOTE | 2021-02-01 11:56 | P.DS_ITS ---
DS: Providers Provider Date of Service: 02/01/21 Date of admission: 01/29/21 08:09 Primary care physician: Nicky Thibodeaux MD Consults: 01/29/21 14:28 Consult to Hospitalist Routine Consulting Provider: Hospitalist Reason For Exam: COPD, medical management DS: Diagnosis Discharge Diagnosis (1) S/P total left hip arthroplasty: Status: Acute DS: Summary Hospital Course Hospital Course: The patient underwent a successful left total hip arthroplasty, was transferred to PACU and then to the floor to recover. During their stay, their vitals were stable, afebrile at 97.4. Labs were unremarkable, H/H 9.8/31.2. POD 1 she was started on Coumadin for DVT ppx, they also received PT/OT services twice a day. Prior to discharge, their dressing was change, incision clean dry and intact, new Aquacel dressing applied and the plan was to be discharged home with VNA services She will needs daily labs for PT/INR, INR goal 2-3 Time Spent with Patient Time attestation: Total time spent providing and/or coordinating discharge services: Discharge coordination time: Less than 30 minutes Quality: Stroke Does the patient have a stroke diagnosis?: No Physical Exam Vital Signs: Vital Signs: Last Vital Signs Temp 97.4 F 02/01/21 11:11 Pulse 105 H 02/01/21 11:11 Resp 16 02/01/21 11:11 BP 106/58 L 02/01/21 11:11 Pulse Ox 91 L 02/01/21 11:11 Body Mass Index 36.4 Const: General: cooperative, healthy appearing and no acute distress Resp: Effort & Inspection: normal respiratory effort and able to speak in complete sentences Cardio: Rate: regular rate Peripheral pulses: Peripheral pulses 2+ throughout GI: Palpation (GI): Soft to palpation Skin: General skin exam: no rashes or lesions noted Extrem: Other: incision clean dry and intact. Koko intact. No erythema or effusion. Calf supple nontender. Neurovascularly intact. DS: Data Data Completed and Pending Completed studies during hospitalization [Text1]: Pending at discharge 01/29/21 11:24 Surgical [PTH] Routine Labs on day of discharge: Laboratory Results - last 24 hr 02/01/21 02/01/21 02/01/21 05:53 05:53 05:53 WBC 10.1 RBC 3.57 L Hgb 9.8 L Hct 31.2 L MCV 87.4 MCH 27.5 MCHC 31.4 RDW 14.7 Plt Count 237 D MPV 11.1 Immature Gran % (Auto) 0.8 H Neut % (Auto) 70.3 Lymph % (Auto) 21.7 [place] % (Auto) 5.8 Eos % (Auto) 1.1 Baso % (Auto) 0.3 Lymph # (Auto) 2.2 [place] # (Auto) 0.6 Eos # (Auto) 0.1 Baso # (Auto) 0.0 Abs Immat Gran (auto) 0.08 H Absolute Neuts (auto) 7.1 Absolute Nucleated RBC 0.000 Nucleated RBC % (auto) 0.0 PT 12.4 INR 1.1 Sodium 139 Potassium 4.4 Chloride 103 Carbon Dioxide 25 Anion Gap 15 BUN 14 D Creatinine 1.35 Estim Creat Clear Calc 56.9 Estimated GFR 41 Fasting Glucose 107 H Calcium 8.8 D Discharge Plan Discharge Patient Disposition: Xfer SNF Discharge Diagnosis: LT MARISELA Referrals: Aureliano Faulkner PA-C [Physician Supervisor Final] - 2 Weeks (02/14/21 1:45 [facility] [place] [facility] Aureliano Faulkner PA-C) Discharge Medications: New oxycodone 10 mg tablet 10 mg PO Q4H PRN (Reason: Pain, Moderate (Pain Scale 4-6) 7 Days Qty: 42 RF: 0 docusate sodium 100 mg Capsule 100 mg PO BID 14 Days Qty: 28 RF: 0 acetaminophen 325 mg Tablet 650 mg PO Q6H PRN (Reason: Pain, Mild (Pain Scale 1-3)) 30 Days Qty: 240 RF: 0 warfarin [Jantoven] 5 mg Tablet 5 mg PO DAILY@1800 42 Days Qty: 42 RF: 0 Continued oxcarbazepine 600 mg tablet 600 mg PO BEDTIME RF: 0 lamotrigine 200 mg tablet 200 mg PO BEDTIME RF: 0 zolpidem 10 mg tablet 1 tab PO BEDTIME RF: 0 quetiapine 50 mg tablet 50 mg PO BEDTIME RF: 0 gabapentin 600 mg tablet 600 mg PO TID RF: 0 omeprazole 20 mg capsule,delayed release(DR/EC) 1 cap PO DAILY@0630 RF: 0 cholecalciferol (vitamin D3) [Vitamin D3] 25 mcg (1,000 unit) capsule 1 cap PO DAILY RF: 0 sumatriptan succinate 50 mg tablet 50 mg PO DAILY PRN (Reason: Migraine Headache) RF: 0 lidocaine 5 % adhesive patch,medicated 1 patch topical DAILY PRN (Reason: Pain (Scale Score 1-3)) RF: 0 nicotine 21 mg/24 hr Patch 24 Hour 1 patch TRANSDERMAL DAILY RF: 0 cyclobenzaprine 5 mg tablet 5 mg PO TID PRN (Reason: Pain) RF: 0 alprazolam [Xanax] 0.5 mg tablet 0.5 mg PO QID RF: 0 lisinopril 10 mg tablet 10 mg PO BEDTIME RF: 0 Flovent HFA 220 mcg/actuation HFA aerosol inhaler 1 puff inhalation BID RF: 0 albuterol sulfate [ProAir HFA] 90 mcg/actuation HFA aerosol inhaler 2 puff inhalation Q6H PRN (Reason: Shortness Of Breath Or Wheezing) RF: 0 Spiriva with HandiHaler 18 mcg capsule, w/inhalation device 1 cap inhalation DAILY RF: 0 Discontinued hydrocodone-acetaminophen 5-325 mg tablet 1 tab PO Q6H PRN (Reason: Pain (Scale Score 7-10)) RF: 0 acetaminophen 500 mg tablet 1 tab PO Q8H PRN (Reason: Pain) RF: 0 atorvastatin 40 mg tablet 40 mg PO BEDTIME RF: 0 diclofenac sodium 75 mg tablet,delayed release (DR/EC) 1 tab PO BID PRN (Reason: Pain (Scale Score 1-3)) RF: 0 Discharge Orders: Discharge Order (Routine); Ordered 02/01/21 Ordered By: Aureliano Faulkner Diet: regular diet Activity on Discharge: Use cane or walker Stand Alone Forms: Patient Portal Discharge page Care Plan Goals: Restore function of joint Health Concerns: none Plan of Treatment: Physical Therapy Pain management DVT prophylaxis-INR goal 2-3 Assessment: * Physical Therapy for Total hip arthroplasty: posterior precautions, gait training, ROM, strength * Limit stair climbing * No showering, no tub bath-keep dressing clean, dry and intact * No driving x6 weeks * Continue Coumadin x6 weeks, INR goal 2-3 * PT/INR draw daily * Follow up with [facility] [place] Orthopedics in 2 weeks
--- NOTE | 2021-02-01 12:05 | MHC.CM.PN ---
PATIENT TO RETURN HOME WITH [facility]. INR TO BE DRAWN THURSDAY AND START OF P.T. OVER THE WEEKEND. RN AWARE OF PLAN. [facility] TO TRANSPORT HOME
--- NOTE | 2021-02-01 16:42 | PC.NURSE ---
While working with PT, patient was lethargic, slurring words, unsteady gait. PT put patient back to bed. Patient sleeping heavily upon assessment, wakes up with some stimulation but falls right back to sleep. VSS. Glancing in patients purse at bedside, an unlabeled bottle of random pills seen. Asked patient if she took anything besides what this RN had given and denied. Security called and patient allowed them to look through belongings. No further medications found. Ta-Eliana notified. Pill bottle taken from patient and confiscated. Patient more alert as day progressed. No change in vital signs.
== END 2021-02-01 16:48 | disposition home health service (06) | DRG 301 ==
LOC: HO.SSSA 08:33 → HO.S3 17:39
PROVIDERS: Physician Assistant; Absent Provider Physician Assistant; Admitting Provider Orthopaedic Surgery; PCP Family Medicine; Visit Provider Orthopaedic Surgery
PROC: 0SRB03A Replacement of Left Hip Joint with Ceramic Synthetic Substitute, Uncemented, Open Approach (ICD-10-PCS; CPT 27130; principal; 2021-01-29 10:00)
DX: M16.12 Unilateral primary osteoarthritis, left hip (principal); F17.210 Nicotine dependence, cigarettes, uncomplicated; J44.9 Chronic obstructive pulmonary disease, unspecified; Z86.73 Personal history of transient ischemic attack (TIA), and cerebral infarction without residual deficits; I10 Essential (primary) hypertension; F39 Unspecified mood [affective] disorder; Z20.822 Contact with and (suspected) exposure to COVID-19; Z71.6 Tobacco abuse counseling; Z88.6 Allergy status to analgesic agent; Z79.51 Long term (current) use of inhaled steroids; Z79.899 Other long term (current) drug therapy
CPT/HCPCS: 36415; 72170; 80048; 85025; 85610; 86850; 86900; 86901; 87635; 87640; 87641; 88304; 88311; 97110; 97116; 97162; 97166; 97530; 97535; C1776; J0131; J1100; J1170; J2250; J2370; J2405; J3370

== ENCOUNTER → 2021-02-14 13:20 | Outpatient (BNVA) | payer MEDICAID, SELFPAY | PROVIDERS: Visit Provider Physician Assistant | DX: Z47.1 Aftercare following joint replacement surgery (principal); Z96.642 Presence of left artificial hip joint | CPT/HCPCS: 99212 ==

== ENCOUNTER 2021-03-22 09:28 | Outpatient (REF) | payer MEDICAID, SELFPAY ==
--- NOTE | ~2021-03-22 | XR_ITS ---
EXAMINATION: XR PELVIS CLINICAL INFORMATION: Pain in the hip. COMPARISON: 01/29/2021 TECHNIQUE: AP view of the pelvis. FINDINGS: There are bilateral total hip arthroplasties. The femoral head components articulate appropriately with the acetabular components. No periprosthetic lucency or fracture. The pelvic rim is intact. The sacroiliac joints and pubic symphysis are intact. Normal bowel gas pattern. XR/XR pelvis 1-2V IMPRESSION: Bilateral total hip arthroplasties in typical positioning and alignment.
== END 2021-03-22 09:29 | disposition home or self-care (01) ==
LOC: HO.HOSX 09:28
PROVIDERS: Visit Provider Orthopaedic Surgery
DX: M25.552 Pain in left hip (principal); M54.50 Low back pain, unspecified; I10 Essential (primary) hypertension; E78.5 Hyperlipidemia, unspecified; K08.9 Disorder of teeth and supporting structures, unspecified; F17.210 Nicotine dependence, cigarettes, uncomplicated; F41.8 Other specified anxiety disorders; Z96.642 Presence of left artificial hip joint; Z88.6 Allergy status to analgesic agent; Z88.8 Allergy status to other drugs, medicaments and biological substances
CPT/HCPCS: 72170; 99212

== ENCOUNTER → 2021-06-24 10:14 | Outpatient (BNVA) | payer MEDICAID, SELFPAY | PROVIDERS: PCP Family Medicine; Visit Provider Orthopaedic Surgery | DX: Z47.1 Aftercare following joint replacement surgery (principal); Z96.642 Presence of left artificial hip joint | CPT/HCPCS: 99212 ==

== ENCOUNTER 2021-09-11 15:24 | Outpatient (REF) | payer MEDICAID, SELFPAY | END 2021-09-11 15:25 | disposition home or self-care (01) | LOC: HO.LAB 15:24 | PROVIDERS: PCP Family Medicine; Visit Provider Obstetrics & Gynecology | DX: R87.810 Cervical high risk human papillomavirus (HPV) DNA test positive (principal) | CPT/HCPCS: 57456; 88305 ==

== ENCOUNTER → 2021-11-18 14:21 | Outpatient (BNVA) | payer MEDICAID, SELFPAY | PROVIDERS: PCP Family Medicine; Visit Provider Obstetrics & Gynecology | DX: R87.810 Cervical high risk human papillomavirus (HPV) DNA test positive (principal) | CPT/HCPCS: 99212 ==

== ENCOUNTER 2022-03-03 11:12 | Emergency (ER) | payer MEDICAID, SELFPAY ==
--- NOTE | ~2022-03-03 | XR_ITS ---
EXAMINATION: XR CHEST CLINICAL INFORMATION: Chest pain COMPARISON: None TECHNIQUE: 2 views of the chest were obtained. FINDINGS: No significant abnormality is noted involving the heart, lungs, mediastinum, bony thorax or soft tissues. XR/XR chest 2V IMPRESSION: Unremarkable chest examination.
[2022-03-03 11:19] VITALS: BP 126/84; BP 141/88; PULSE 82; PULSE 92; RESP 16; TEMP 36.8; O2SAT 100; BMI 35.5
--- NOTE | 2022-03-03 11:27 | ED_ITS ---
HPI - Chest Pain General Chief Complaint: Chest Pain Stated Complaint: CHEST WALL PAIN ON ISNP &PALP PER EMS Time Seen by Provider: 03/03/22 11:27 Source: patient Mode of arrival: EMS Limitations: physical limitation (uses a walker) History of Present Illness HPI narrative: 56 yo F with PMH of COPD, chronic headaches, HLD, HTN, panic attacks, TIA in 2019, and nicotine dependence presents to the ED via EMS for a report of non- radiating, constant CP to left side of chest with vague nausea. She states nausea is a chronic issue for her. She states she was resting on the couch, drinking coffee when the pain began. She describes the pain as a burning sensation, 4/10, in the left upper chest area. She denies taking any OTC analagesics prior to presenting to the ED. She denies abdominal pain, SOB, pain with inspiration. MD complaint: chest pain Onset (ago): hour(s) Timing of current episode: episodic Onset: during rest Pain location: left chest Pain radiation: none Severity: mild Pain scale (0-10): 4 Quality: burning Relieving factors: nothing Exacerbating factors: nothing Associated symptoms: nausea Treatment prior to arrival: none Risk Factors Coronary artery disease risk factors: smoking history, hyperlipidemia and hypertension Related Data On Oral Contraceptives: No Home Medications Medication Instructions Recorded Confirmed cyclobenzaprine 5 mg tablet 5 mg PO TID PRN Pain 03/12/20 01/29/21 alprazolam 0.5 mg tablet (Xanax) 0.5 mg PO QID 07/23/20 01/16/21 lisinopril 10 mg tablet 10 mg PO BEDTIME 07/23/20 01/16/21 albuterol sulfate 90 mcg/actuation 2 puff inhalation Q6H PRN 08/21/20 01/16/21 aerosol inhaler (ProAir HFA) Shortness Of Breath Or Wheezing fluticasone propionate 220 1 puff inhalation BID 08/21/20 01/16/21 mcg/actuation HFA aerosol inhaler (Flovent HFA) tiotropium bromide 18 mcg capsule 1 cap inhalation DAILY 08/21/20 01/16/21 with inhalation device (Spiriva with HandiHaler) oxcarbazepine 600 mg tablet 600 mg PO BEDTIME 01/16/21 01/23/21 lamotrigine 200 mg tablet 200 mg PO BEDTIME 01/23/21 01/23/21 cholecalciferol (vitamin D3) 25 1 cap PO DAILY 01/29/21 01/29/21 mcg (1,000 unit) capsule (Vitamin D3) gabapentin 600 mg tablet 600 mg PO TID 01/29/21 01/29/21 lidocaine 5 % topical patch 1 patch topical DAILY PRN Pain 01/29/21 01/29/21 (Scale Score 1-3) nicotine 21 mg/24 hr daily 1 patch transdermal DAILY 01/29/21 01/29/21 transdermal patch omeprazole 20 mg capsule,delayed 1 cap PO DAILY@0630 01/29/21 01/29/21 release quetiapine 50 mg tablet 50 mg PO BEDTIME 01/29/21 01/29/21 sumatriptan succinate 50 mg tablet 50 mg PO DAILY PRN Migraine 01/29/21 01/29/21 Headache zolpidem 10 mg tablet 1 tab PO BEDTIME 01/29/21 01/29/21 Previous Rx's Medication Instructions Recorded acetaminophen 325 mg tablet 650 mg PO Q6H PRN Pain, Mild (Pain 02/01/21 Scale 1-3) 30 days #240 tabs warfarin 5 mg tablet (Jantoven) 5 mg PO DAILY@1800 42 days #42 tabs 02/01/21 warfarin 1 mg tablet 1 mg PO DAILY #20 tabs 02/04/21 docusate sodium 100 mg capsule 100 mg PO BID 30 days #60 caps 02/19/21 oxycodone 5 mg tablet 5 mg PO DAILY PRN Pain, Moderate 04/11/21 (Pain Scale 4-6 7 days #7 tabs Allergies Allergy/AdvReac Type Severity Reaction Status Date / Time aspirin [ASPIRIN] Allergy Mild GI UPSET Verified 09/11/21 15:34 ibuprofen [IBUPROFEN] Allergy Mild GI UPSET Verified 09/11/21 15:34 Review of Systems Review of Systems: Yes all other systems are reviewed and are negative Constitutional: Constitutional: Reports body ache(s), Denies chills, Denies fever(s) and Denies headache(s) Eyes: Eyes: Reports no additional eye complaints ENT: Reports Normal hearing present and Denies headache(s) Cardiovascular: Cardiovascular: Reports no additional cardiovascular complaints, Denies chest pain, Denies Loss of Consciousness and Denies dyspnea Respiratory: Respiratory: Reports no additional respiratory complaints, Denies pain on inspiration and Denies dyspnea Gastrointestinal: Gastrointestinal: Reports no additional gastrointestinal complaints, Denies constipation, Denies heartburn and Denies diarrhea Musculoskeletal: Musculoskeletal: Reports abnormal gait (uses walker), Reports back pain, Reports myalgias, Denies numbness and Denies tingling Neurologic: Reports Normal hearing present, Reports abnormal gait (uses w alker), Denies headache(s), Denies numbness and Denies tingling PMFSH Past Medical History Attestation statement: The following information was validated with the patient. Source: old records reviewed Medical History Anxiety and depression Chronic headaches COPD (chronic obstructive pulmonary disease) History of panic attacks History of TIA (transient ischemic attack) (~2019) Hyperlipidemia Hypertension Low back pain Neck pain Nicotine dependence, cigarettes, uncomplicated (~1978) Osteoarthritis of left hip Personal history of nicotine dependence (~1978) Poor dentition Uses roller walker Surgical History History of appendectomy (~02/13/02) Status post total hip replacement, right (~04/26/13) Social History Social History Household Members: None Housing: Apartment Are you a primary residential caregiver to a significant other at home: No Do you presently have visiting nurse or other home services: No Patient Tobacco Use Status: Current everyday Tobacco user Tobacco use type: Cigarette Cigarette Packs Per Day: 1 Cigarettes Per Day: 20.0 Years Smoked: 42 Second Hand Smoke Exposure: No Advance Directives: Yes Advance Directives Information Provided: Yes Advance Directives on File: No Current occupational status: unemployed Current occupation: Right Handed Physical Exam Vital Signs: Vital Signs: Last Vital Signs Temp 97.7 F 03/03/22 14:11 Pulse 77 03/03/22 14:11 Resp 19 03/03/22 14:11 BP 168/69 H 03/03/22 14:11 Pulse Ox 98 03/03/22 14:11 O2 Del Method 03/03/22 14:11 BMI result Body Mass Index 35.5 Const: General: cooperative, healthy appearing, alert and awake Nutritional Appearance: well nourished Orientation/consciousness: patient oriented x3 Limitations: ambulation with walker HEENT: Head: Yes normal to inspection and Yes atraumatic Ears: hearing grossly normal bilaterally and external ears normal General nose exam: Normal external nose present Face and sinus: Yes normal facial exam and Yes face symmetric Mouth: Normal oral and palatal mucosa present Eyes: General: appearance normal, both eyes and all related structures Visual Roblero: normal visual roblero by confrontation Alignment and Position: alignment normal Periorbital: periorbital findings normal Eyelids: Yes eyelids normal Conjunctivae: conjunctivae normal Sclerae: sclerae normal Pupils: Equal, round and reactive pupils present EOM: EOMs intact bilaterally Neck: Neck: Yes normal visual inspection and Yes full ROM Chest: Chest palpation & inspection: normal inspection of the chest Resp: Effort & Inspection: normal respiratory effort, not labored and symmetric chest movement Auscultation: clear to auscultation bilaterally Cardio: Rate: regular rate Rhythm: regular rhythm GI: Inspection: Yes normal to inspection Palpation (GI): Soft to palpation Auscultation: normal bowel sounds Skin: General skin exam: no rashes or lesions noted Neuro: General: patient oriented x3 Cranial nerves: Yes Equal, round and reactive pupils present and Yes Normal hearing present Cognition (Neuro): normal cognition Motor exam (neuro): 5/5 motor strength present throughout Sensory Exam: Normal double simultaneous stimulation for sensation Extrem: General: Yes normal to inspection Psych: Appearance: grossly normal Mental Status: mental status grossly normal Speech and movement: Normal speech and movement present Affect: normal affect Attitude: cooperative Thought process: Normal thought process present Thought content: Normal thought content present Medications Administered Discontinued Medications Generic Name Dose Route Start Last Admin Trade Name Jaki PRN Reason Stop Dose Admin Acetaminophen 650 mg 03/03/22 12:01 03/03/22 12:12 Acetaminophen 325 Mg Tablet PO 03/03/22 12:02 650 mg ONCE ONE Administration MDM - Chest Pain MDM Narrative Medical decision making narrative: 56 yo F with PMH of COPD, chronic headaches, HLD, HTN, panic attacks, TIA in 2019, and nicotine dependence presents to the ED via EMS for a report of non- radiating, constant CP to left side of chest with vague nausea. EKG NSR with no significant changes when compared to EKG done 03/2020. Troponin negative. CXR unremarkable. Educated to present back to ED with worsening of symptoms. Recommended to follow up with PCP for further management. Lab Data Attestation: I reviewed the patient's lab results. Result diagrams: 03/03/22 11:35 03/03/22 13:27 Labs: Lab Results 03/03/22 03/03/22 03/03/22 Range/Units 11:35 11:35 13:27 WBC 8.5 (4.8-10.8) X10*3/uL RBC 4.47 (4.20-5.50) X10*6/uL Hgb 12.1 (12.0-16.0) g/dl Hct 37.5 (37.0-47.0) % MCV 83.9 (80.0-98.0) fL MCH 27.1 (27.0-33.0) pg MCHC 32.3 (31.0-35.0) g/dl RDW 15.1 (11.0-16.0) % Plt Count 249 (160-400) X10*3/uL MPV 10.1 (9.4-12.3) fL Immature Gran % (Auto) 0.5 H (0.0-0.4) % Neut % (Auto) 71.1 (45-73) % Lymph % (Auto) 20.9 (20-40) % [place] % (Auto) 5.8 (2-11) % Eos % (Auto) 1.1 (0-4) % Baso % (Auto) 0.6 (0-2) % Lymph # (Auto) 1.8 (1.2-4.9) X10*3/uL [place] # (Auto) 0.5 (0.1-1.2) X10*3/uL Eos # (Auto) 0.1 (0.0-0.4) X10*3/uL Baso # (Auto) 0.1 (0.0-0.2) X10*3/uL Abs Immat Gran (auto) 0.04 H (0.00-0.03) X10*3/uL Absolute Neuts (auto) 6.1 (2.0-8.3) x10*3/uL Absolute Nucleated RBC 0.000 (0.0-0.012) X10*3/uL Nucleated RBC % (auto) 0.0 (0.0-0.2) /100WBC Sodium 141 (135-145) mmol/L Potassium 4.5 (3.3-5.1) mmol/L Chloride 105 (96-108) mmol/L Carbon Dioxide 25 (22-29) mmol/L Anion Gap 16 (12-20) BUN 12 (9-16) mg/dL Creatinine 0.85 (0.5-1.4) mg/dL Estim Creat Clear Calc 88.1 Estimated GFR > 60 Random Glucose 103 (60-115) mg/dL Calcium 9.4 D (8.4-10.2) mg/dL Troponin I High Sens < 3.5 (<3.5-17.0) ng/L Imaging Data Chest x-ray: Radiologist's impression: XR/XR chest 2V IMPRESSION: Unremarkable chest examination. Discharge Plan Discharge Clinical Impression: Chest pain Patient Disposition: Home, Self-Care Instructions: Chest Pain (ED) Prescriptions: No Action warfarin 1 mg tablet 1 mg PO DAILY Qty: 20 0RF docusate sodium 100 mg capsule 100 mg PO BID 30 Days Qty: 60 0RF oxycodone 5 mg tablet 5 mg PO DAILY PRN (Reason: Pain, Moderate (Pain Scale 4-6) 7 Days Qty: 7 0RF oxcarbazepine 600 mg tablet 600 mg PO BEDTIME lamotrigine 200 mg tablet 200 mg PO BEDTIME zolpidem 10 mg tablet 1 tab PO BEDTIME quetiapine 50 mg tablet 50 mg PO BEDTIME gabapentin 600 mg tablet 600 mg PO TID omeprazole 20 mg capsule,delayed release(DR/EC) 1 cap PO DAILY@0630 cholecalciferol (vitamin D3) [Vitamin D3] 25 mcg (1,000 unit) capsule 1 cap PO DAILY sumatriptan succinate 50 mg tablet 50 mg PO DAILY PRN (Reason: Migraine Headache) lidocaine 5 % adhesive patch,medicated 1 patch topical DAILY PRN (Reason: Pain (Scale Score 1-3)) nicotine 21 mg/24 hr Patch 24 Hour 1 patch TRANSDERMAL DAILY acetaminophen 325 mg Tablet 650 mg PO Q6H PRN (Reason: Pain, Mild (Pain Scale 1-3)) 30 Days Qty: 240 0RF warfarin [Jantoven] 5 mg Tablet 5 mg PO DAILY@1800 42 Days Qty: 42 0RF cyclobenzaprine 5 mg tablet 5 mg PO TID PRN (Reason: Pain) alprazolam [Xanax] 0.5 mg tablet 0.5 mg PO QID lisinopril 10 mg tablet 10 mg PO BEDTIME Flovent HFA 220 mcg/actuation HFA aerosol inhaler 1 puff inhalation BID albuterol sulfate [ProAir HFA] 90 mcg/actuation HFA aerosol inhaler 2 puff inhalation Q6H PRN (Reason: Shortness Of Breath Or Wheezing) Spiriva with HandiHaler 18 mcg capsule, w/inhalation device 1 cap inhalation DAILY Rx Instructions: puncture 1 cap using device; one dose = 2 inhalations Referrals: Nicky Thibodeaux MD [Primary Care Provider] -
--- NOTE | 2022-03-03 11:29 | ECG_ITS ---
Test Reason : Chest Pain Blood Pressure : / mmHG Vent. Rate : 083 BPM Atrial Rate : 083 BPM P-R Int : 160 ms QRS Dur : 080 ms QT Int : 376 ms P-R-T Axes : 039 -12 020 degrees QTc Int : 441 ms Normal sinus rhythm Normal ECG When compared with ECG of 12-APR-2020 11:49, No significant change was found Referred By: Di Whyte Electronically Signed By:FLYNN RODRIGUEZ MD
[2022-03-03 11:39] VITALS: BP 150/91; PULSE 91; RESP 23; TEMP 36.8; O2SAT 96
[2022-03-03 11:39] LABS: MANUAL DIFF FLAG NO
[2022-03-03 11:45] LABS: Basophils Absolute Auto 0.1 X10*3/uL (0.0-0.2); Basophils Percent Auto 0.6 % (0-2); Eosinophils Absolute Auto 0.1 X10*3/uL (0.0-0.4); Eosinophils Percent Auto 1.1 % (0-4); Hematocrit 37.5 % (37.0-47.0); Hemoglobin 12.1 g/dl (12.0-16.0); Imm Gran Abs Auto 0.04 X10*3/uL (0.00-0.03); Imm Gran Pct Auto 0.5 % (0.0-0.4); Lymphocytes Absolute Auto 1.8 X10*3/uL (1.2-4.9); Lymphocytes Percent Auto 20.9 % (20-40); Mean Corpuscular HGB Conc 32.3 g/dl (31.0-35.0); Mean Corpuscular Hemoglobin 27.1 pg (27.0-33.0); Mean Corpuscular Volume 83.9 fL (80.0-98.0); Mean Platelet Volume 10.1 fL (9.4-12.3); Monocytes Absolute Auto 0.5 X10*3/uL (0.1-1.2); Monocytes Percent Auto 5.8 % (2-11); Neutrophils Absolute Auto 6.1 x10*3/uL (2.0-8.3); Neutrophils Percent Auto 71.1 % (45-73); Platelet Count 249 X10*3/uL (160-400); Red Blood Count 4.47 X10*6/uL (4.20-5.50); Red Cell Distribution Width 15.1 % (11.0-16.0); White Blood Count 8.5 X10*3/uL (4.8-10.8)
[2022-03-03 12:06] LABS: Troponin-I High Sensitivity < 3.5 ng/L (<3.5-17.0)
[2022-03-03] MEDS: Acetaminophen 325 MG TABLET 650 MG PO (12:12)
[2022-03-03 14:03] LABS: Anion Gap 16 (12-20); Blood Urea Nitrogen 12 mg/dL (9-16); Calcium 9.4 mg/dL (8.4-10.2); Carbon Dioxide 25 mmol/L (22-29); Chloride 105 mmol/L (96-108); Creatinine Clr Calc Pharmacy 88.1; Estimated Glomerular Filt Rate > 60; Glucose Random 103 mg/dL (60-115); Potassium 4.5 mmol/L (3.3-5.1); Sodium 141 mmol/L (135-145)
[2022-03-03 14:11] VITALS: BP 168/69; PULSE 77; RESP 19; TEMP 36.5; O2SAT 98
== END 2022-03-03 15:14 | disposition home or self-care (01) ==
PROVIDERS: Nurse Practitioner Family; Emergency Provider Emergency Medicine Emergency Medical Services; PCP Family Medicine
DX: R07.9 Chest pain, unspecified (principal); I10 Essential (primary) hypertension; E78.5 Hyperlipidemia, unspecified; F17.210 Nicotine dependence, cigarettes, uncomplicated; Z86.73 Personal history of transient ischemic attack (TIA), and cerebral infarction without residual deficits; Z79.01 Long term (current) use of anticoagulants; Z79.899 Other long term (current) drug therapy
CPT/HCPCS: 36415; 71046; 80048; 84484; 85025; 93005; 99283; 99284

== ENCOUNTER → 2022-07-29 14:20 | Outpatient (BNVA) | payer MEDICAID, SELFPAY | PROVIDERS: PCP Family Medicine; Visit Provider Physician Assistant ==

== ENCOUNTER 2022-08-19 14:05 | Outpatient (REF) | payer MEDICAID, SELFPAY | END 2022-08-19 14:06 | disposition home or self-care (01) | LOC: HO.HOSX 14:05 | PROVIDERS: PCP Family Medicine; Visit Provider Physician Assistant | DX: M54.40 Lumbago with sciatica, unspecified side (principal) | CPT/HCPCS: 99212 ==

== ENCOUNTER 2022-09-04 15:29 | Outpatient (REF) | payer MEDICAID, SELFPAY | END 2022-09-04 15:30 | disposition home or self-care (01) | LOC: HO.HOSX 15:29 | PROVIDERS: Visit Provider Physician Assistant | DX: Z13.89 Encounter for screening for other disorder (principal) ==

== ENCOUNTER 2022-11-14 09:24 | Outpatient (REF) | payer MEDICAID, SELFPAY ==
--- NOTE | ~2022-11-14 | XR_ITS ---
EXAMINATION: XR LUMBOSACRAL SPINE WITH OBLIQUES CLINICAL INFORMATION: Lumbago with sciatica COMPARISON: 02/04/2019 TECHNIQUE: AP, both oblique, and lateral views of the lumbar spine. Lateral view of the lumbosacral junction. FINDINGS: Using the same numbering system as on previous studies, there has been interval placement of transpedicular screws, posterior surgical stabilizing hardware and intervertebral cage at L4-L5. Grade 1 anterolisthesis of L4 on L5 on neutral view is without significant change on flexion and extension views. Surgical hardware demonstrates no evidence of loosening. Multilevel mild spurring. Overall vertebral bodies are maintained in height. L5-S1 remains markedly narrowed. Visualized pedicles are intact. Minimal bilateral SI sclerosis, left greater than right. XR/XR lumbar spine 4V min IMPRESSION: Grade 1 anterolisthesis status post post lumbar fusion site without significant change on flexion and extension views.
== END 2022-11-14 09:25 | disposition home or self-care (01) ==
LOC: HO.HOSX 09:24
PROVIDERS: Visit Provider Physician Assistant
DX: M54.40 Lumbago with sciatica, unspecified side (principal); Z98.1 Arthrodesis status
CPT/HCPCS: 72110; 99213

== ENCOUNTER 2022-11-14 14:32 | Outpatient (AMB) | payer MEDICAID, SELFPAY ==
--- NOTE | 2022-11-14 14:43 | A.SPINEOV_ITS ---
Intake Intake Visit Reasons: 8 wk f/u with xrays Intake Note: Ms. Medina is here today for her 8wk f/u w/x-rays. Die Filer Required: No Allergies aspirin [ASPIRIN] Allergy (Mild, Verified 08/19/22 14:09) GI UPSET ibuprofen [IBUPROFEN] Allergy (Mild, Verified 08/19/22 14:09) GI UPSET Assessment & Plan Assessment & Plan (1) Back pain of lumbar region with sciatica: Code(s): M54.40 - Lumbago with sciatica, unspecified side Plan Dear Karina Figueroa, Mrs Medina is 4 months or so out from her L4-5 transforaminal lumbar interbody fusion. Unfortunately she has not seen much in way of improvement in her back pain. She is also now reporting that she has pain and significant feelings of p ressure in her buttocks and going into her hips. It appears to be centralized over her SI joints bilaterally and not in a more lumbar central origin. She does not have any radicular pain. It is hard sleeping at night. She has been trying to do activity modifications, [id number] pain medicines etc.. At this point her x-rays look great despite her continuing pain I will order a new lumbar MRI with and without gadolinium just to evaluate if there is any residual disc fragments at the surgical site, or another disc herniation somewhere else. I have a low suspicion that it will show anything but I feel we need to do it just to clarify for her why she is in so much pain. Based on the localization of the symptoms I suspect this may be SI joint origin. I will send her back to [facility] for bilateral SI joint injections. Total amount of time spent in this visit was 20 minutes in discussion of symptoms, lumbar x-ray imaging results and subsequent plan of care Yogi Myrick MD,PhD [facility] Orders: Orders XR lumbar spine 4V min Today M54.40 - Lumbago with sciatica, unspecified side BUZZ Glass MR lumbar spine wo/w con Today M54.40 - Lumbago with sciatica, unspecified side BUZZ Duncan Referrals Physiatry Referral M54.40 - Lumbago with sciatica, unspecified side BUZZ Duncan Coding Level of Care Code Est Pt Level 3 (02239) Diagnoses Back pain of lumbar region with sciatica M54.40
== END 2022-11-14 15:18 | disposition home or self-care (01) ==
PROVIDERS: PCP Family Medicine; Visit Provider Physician Assistant
DX: M54.40 Lumbago with sciatica, unspecified side (principal)
CPT/HCPCS: 99213

== ENCOUNTER 2022-12-18 12:27 | Outpatient (REF) | payer MEDICAID, SELFPAY ==
--- NOTE | ~2022-12-18 | XR_ITS ---
EXAMINATION: XR PELVIS CLINICAL INFORMATION: Pain in unspecified hip COMPARISON: 03/22/2021 TECHNIQUE: AP views of the pelvis. FINDINGS: There has been a total hip arthroplasty bilaterally. The components appear well seated and normally aligned. No fracture or dislocation is evident. The periarticular soft tissues appear unremarkable. There has been spinal fusion at the lumbosacral junction since prior examination. XR/XR pelvis 1-2V IMPRESSION: Status post bilateral total hip arthroplasty. No fracture or dislocation.
== END 2022-12-18 12:28 | disposition home or self-care (01) ==
LOC: HO.HOSX 12:27
PROVIDERS: Visit Provider Orthopaedic Surgery
DX: M54.40 Lumbago with sciatica, unspecified side (principal); Z96.643 Presence of artificial hip joint, bilateral
CPT/HCPCS: 72170

== ENCOUNTER 2022-12-18 13:46 | Outpatient (AMB) | payer MEDICAID, SELFPAY ==
--- NOTE | 2022-12-18 13:52 | MHC.OFFVIS ---
Intake Intake Visit Reasons: OV - Bilateral Hip Pain Intake Note: Darcy is a 57 year old female who presents today for a follow up of her bilateral hip pain. Left MARISELA done 01/29/2021.Patient reports that she is having continue pain of both of her rips. Allergies aspirin [ASPIRIN] Allergy (Mild, Verified 08/19/22 14:09) GI UPSET ibuprofen [IBUPROFEN] Allergy (Mild, Verified 08/19/22 14:09) GI UPSET HPI OV - Bilateral Hip Pain HPI Details Darcy is a 57 year old woman who presents with complaints of bilateral hip & lower back pain. She complains primarily of pain in the lateral aspect of her hips, along with LBP. She complains of numbness, tingling, and burning in her legs, and says her pain radiates from her lower back into her buttocks, hips, and down her legs. She says when walking she has pain radiating through her entire lower body, from her back into her legs. She complains of weakness primarily in her left leg and says it feels like it wants to give out on her. She says her left leg weakness has been present since her MARISELA, and she admits to poor post-op compliance with PT and activity, so she thinks that may be relted to her weakness. She does report some groin discomfort, but this is mild compared to the rest of her pain. She says she is scheduled for injections into her pelvic area soon. She has a hx of L4-L5 fusion in 06/2022. She has a hx of bilateral THAs, left: 01/29/21 & right: 04/26/13 [facility] Medical History Anxiety and depression Chronic headaches COPD (chronic obstructive pulmonary disease) History of panic attacks History of TIA (transient ischemic attack) (~2019) Hyperlipidemia Hypertension Low back pain Neck pain Nicotine dependence, cigarettes, uncomplicated (~1978) Osteoarthritis of left hip Personal history of nicotine dependence (~1978) Poor dentition Uses roller walker Surgical History History of appendectomy (~02/13/02) Status post total hip replacement, right (~04/26/13) Social History Household Members: None Housing: Apartment Are you a primary elderly caregiver to a significant other at home: No Do you presently have visiting nurse or other home services: No Patient Tobacco Use Status: Current everyday Tobacco user Tobacco use type: Cigarette Cigarette Packs Per Day: 1 Cigarettes Per Day: 20.0 Years Smoked: 42 Second Hand Smoke Exposure: No Current occupational status: unemployed Current occupation: Right Handed Female Reproductive History Menstrual Age of Menarche: 13 Review of Systems Const All systems reviewed & are unremarkable except as noted in HPI and below Physical Exam Const General: no acute distress, alert and awake Orientation/consciousness: patient oriented x3 HEENT Head: Yes normocephalic and Yes atraumatic Eyes EOM: EOMs intact bilaterally Resp Effort & Inspection: normal respiratory effort and able to speak in complete sentences Cardio Jugular venous distension: no JVD Skin General skin exam: turgor normal Rashes: no rashes Neuro General: patient oriented x3 Extrem Other: Bilateral Hips: No groin pain with hip ROM Psych Appearance: grossly normal Affect: normal affect Attitude: cooperative Results Reviewed Results Reviewed: I personally reviewed relevant radiographs. Bilateral total hip arthroplasty in expected post operative position with no hardware complications or evidence of loosening Assessment & Plan Assessment & Plan (1) Back pain of lumbar region with sciatica: Code(s): M54.40 - Lumbago with sciatica, unspecified side Plan: This is a 57 year old woman with lumbar pain radiating into her lower extremities. She has a hx of a L4-L5 fusion in 06/2022 and reports increased pain & weakness in her legs since. She has a hx of bilateral THAs and denies any groin pain. I discussed her diagnosis and treatment options, and explained that her pain is likely not related to her hips. She is scheduled for an SI joint injection and to begin PT. No acute intervention warranted. (2) History of left hip replacement: Code(s): Z96.642 - Presence of left artificial hip joint Plan: 01/29/21 (3) History of right hip replacement: Comment: 04/26/13 Code(s): Z96.641 - Presence of right artificial hip joint Plan Scribed for William Neal MD by Pepe Denise program medical director, on 12/18/22 at 2:30 PM, EST. Orders: Orders XR pelvis 1-2V 12/18/22 M25.559 - Pain in unspecified hip Coding Level of Care Code Est Pt Level 4 (94815) Diagnoses Back pain of lumbar region with sciatica M54.40 History of left hip replacement Z96.642 History of right hip replacement Z96.641
== END 2022-12-18 14:29 | disposition home or self-care (01) ==
PROVIDERS: PCP Family Medicine; Visit Provider Orthopaedic Surgery
DX: M54.40 Lumbago with sciatica, unspecified side (principal); Z96.643 Presence of artificial hip joint, bilateral
CPT/HCPCS: 99213

== ENCOUNTER 2023-01-29 14:52 | Outpatient (REF) | payer MEDICAID, SELFPAY ==
--- NOTE | ~2023-01-29 | XR_ITS ---
EXAMINATION: XR THORACIC SPINE CLINICAL INFORMATION: Spondylosis. COMPARISON: None available. TECHNIQUE: Frontal, lateral and swimmer's views of the thoracic spine were obtained. FINDINGS: Vertebral body heights are normal. There is a mild thoracic dextroscoliosis. There is mild leftward disc space narrowing at T6-T7. The remaining disc spaces are relatively well-maintained. No acute fracture or spondylolisthesis is seen. There is multi-level mild thoracic spondylosis. The posterior elements are intact. The paravertebral soft tissues are unremarkable. XR/XR thoracic spine 3V IMPRESSION: 1. No acute fracture or spondylolisthesis is seen. 2. There is a mild thoracic dextroscoliosis. 3. There is mild degenerative disc disease at T6-T7.
== END 2023-01-29 14:53 | disposition home or self-care (01) ==
LOC: HO.XRAY 14:52
PROVIDERS: PCP Family Medicine; Visit Provider Nurse Practitioner Women's Health
DX: M47.814 Spondylosis without myelopathy or radiculopathy, thoracic region (principal)
CPT/HCPCS: 72072

== ENCOUNTER 2023-02-18 14:00 | Outpatient (RCR) | payer MEDICAID, SELFPAY ==
[2023-01-09 13:06] VITALS: BP 138/87; PULSE 85
== END 2023-03-09 14:32 | disposition home or self-care (01) ==
LOC: HO.PT 14:00
PROVIDERS: PCP Family Medicine; Visit Provider Nurse Practitioner Women's Health
DX: M53.3 Sacrococcygeal disorders, not elsewhere classified (principal)
CPT/HCPCS: 97110; 97162; 97530

== ENCOUNTER 2023-07-17 09:08 | Outpatient (REF) | payer MEDICAID, SELFPAY ==
[2023-07-17 12:08] LABS: Alanine Aminotransferase 9 U/L (0-31); Albumin Level 4.3 g/dL (3.5-5.0); Alkaline Phosphatase 100 U/L (39-117); Anion Gap 14 (12-20); Aspartate Amino Transferase 13 U/L (5-31); Bilirubin Direct < 0.2 mg/dL (0.0-0.5); Bilirubin Total 0.2 mg/dL (0.0-1.0); Blood Urea Nitrogen 16 mg/dL (9-16); Calcium 9.6 mg/dL (8.4-10.2); Carbon Dioxide 26 mmol/L (22-29); Chloride 103 mmol/L (96-108); Estimated Glomerular Filt Rate 58; Glucose Random 111 mg/dL (60-115); Potassium 4.2 mmol/L (3.3-5.1); Sodium 139 mmol/L (135-145); Total Protein 7.9 g/dL (6.5-8.0)
== END 2023-07-17 09:09 | disposition home or self-care (01) ==
LOC: HO.HHCL 09:08
PROVIDERS: Visit Provider Nurse Practitioner Women's Health
DX: G89.4 Chronic pain syndrome (principal)
CPT/HCPCS: 36415; 80053; 82248

== ENCOUNTER 2023-07-17 10:23 | Outpatient (REF) | payer MEDICAID, SELFPAY ==
[2023-07-17 11:44] LABS: MANUAL DIFF FLAG NO
[2023-07-17 11:49] LABS: Basophils Absolute Auto 0.1 X10*3/uL (0.0-0.2); Basophils Percent Auto 0.6 % (0-2); Eosinophils Absolute Auto 0.1 X10*3/uL (0.0-0.4); Hematocrit 39.3 % (37.0-47.0); Hemoglobin 12.4 g/dl (12.0-16.0); Imm Gran Abs Auto 0.04 X10*3/uL (0.00-0.03); Imm Gran Pct Auto 0.4 % (0.0-0.4); Lymphocytes Percent Auto 22.1 % (20-40); Mean Corpuscular HGB Conc 31.6 g/dl (31.0-35.0); Mean Corpuscular Hemoglobin 27.4 pg (27.0-33.0); Mean Corpuscular Volume 86.9 fL (80.0-98.0); Mean Platelet Volume 10.7 fL (9.4-12.3); Monocytes Absolute Auto 0.6 X10*3/uL (0.1-1.2); Monocytes Percent Auto 6.2 % (2-11); Neutrophils Absolute Auto 6.3 x10*3/uL (2.0-8.3); Neutrophils Percent Auto 69.7 % (45-73); Platelet Count 282 X10*3/uL (160-400); Red Blood Count 4.52 X10*6/uL (4.20-5.50); Red Cell Distribution Width 14.4 % (11.0-16.0); White Blood Count 9.1 X10*3/uL (4.8-10.8)
[2023-07-17 12:14] LABS: Alanine Aminotransferase 10 U/L (0-31); Albumin Level 4.3 g/dL (3.5-5.0); Alkaline Phosphatase 102 U/L (39-117); Anion Gap 13 (12-20); Aspartate Amino Transferase 13 U/L (5-31); Bilirubin Direct < 0.2 mg/dL (0.0-0.5); Bilirubin Total 0.2 mg/dL (0.0-1.0); Blood Urea Nitrogen 15 mg/dL (9-16); Calcium 9.5 mg/dL (8.4-10.2); Carbon Dioxide 28 mmol/L (22-29); Chloride 103 mmol/L (96-108); Cholesterol 219 mg/dL (<200); Estimated Glomerular Filt Rate 54; Glucose Random 106 mg/dL (60-115); HDL Cholesterol 49 mg/dL (>40); LDL Cholesterol Calculated 137 mg/dL (<100); Magnesium 2.1 mg/dL (1.6-2.6); Potassium 4.5 mmol/L (3.3-5.1); Sodium 139 mmol/L (135-145); Triglycerides 168 mg/dL (<150)
[2023-07-17 12:31] LABS: TSH reflex Free T4 0.87 uIU/mL (0.32-4.0); Vitamin D 25-OH Total 40.9 ng/mL (>30)
[2023-07-17 12:42] LABS: Estimated Average Glucose 114 mg/dL; Hemoglobin A1c % 5.6 % (<6.0)
== END 2023-07-17 10:24 | disposition home or self-care (01) ==
LOC: HO.HHCL 10:23
PROVIDERS: Visit Provider Family Medicine
DX: E55.9 Vitamin D deficiency, unspecified (principal); E78.5 Hyperlipidemia, unspecified; R73.9 Hyperglycemia, unspecified; I10 Essential (primary) hypertension; G54.9 Nerve root and plexus disorder, unspecified
CPT/HCPCS: 36415; 80048; 80061; 80076; 82306; 83036; 83735; 84443; 85025

== ENCOUNTER → 2023-08-11 12:30 | Outpatient (BNV) | payer MEDICAID, SELFPAY | PROVIDERS: PCP Family Medicine; Visit Provider Radiology Diagnostic Radiology | DX: Z12.31 Encounter for screening mammogram for malignant neoplasm of breast (principal) | CPT/HCPCS: 77063; 77067 ==

== ENCOUNTER 2023-08-11 12:34 | Outpatient (REF) | payer MEDICAID, SELFPAY ==
--- NOTE | ~2023-08-11 | MM_ITS ---
EXAMINATION: MM SCREENING DIGITAL BREAST TOMOSYNTHESIS, BILATERAL CLINICAL INFORMATION: Screening. Asymptomatic. COMPARISON: Mammography: This study is compared with prior exams dating back to 2019. TECHNIQUE: Digital breast tomosynthesis is performed in both the craniocaudal and mediolateral oblique views along with computer-aided detection (CAD). Synthesized 2D images are generated from the tomosynthesis. FINDINGS: The breasts are almost entirely fatty (ACR BI-RADS breast composition Category a). There are no significant masses, abnormal calcifications, or other abnormalities. There are 2 tissue markers in the left breast from prior benign percutaneous biopsies. MM/MM tomosynthesis screening BI IMPRESSION: No mammographic evidence of malignancy. ASSESSMENT: BI-RADS BI-RADS 2 - Benign Findings RECOMMENDATION: Routine annual mammography screening. 1 year F/U This examination should not preclude the clinical evaluation of a suspicious palpable abnormality. This patient's information was entered into a reminder system with a target due date for their next mammogram.
== END 2023-08-11 12:35 | disposition home or self-care (01) ==
LOC: HO.MAMMO 12:34
PROVIDERS: PCP Family Medicine; Visit Provider Family Medicine
DX: Z12.31 Encounter for screening mammogram for malignant neoplasm of breast (principal)
CPT/HCPCS: 77063; 77067

== ENCOUNTER 2023-10-08 14:19 | Outpatient (AMB) | payer MEDICAID, SELFPAY ==
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
[2023-10-08 14:45] VITALS: BP 146/76; PULSE 97; RESP 16; O2SAT 97; BMI 36.6
== END 2023-10-08 15:12 | disposition home or self-care (01) ==
PROVIDERS: PCP Family Medicine; Visit Provider Anesthesiology
DX: M46.1 Sacroiliitis, not elsewhere classified (principal); M53.3 Sacrococcygeal disorders, not elsewhere classified; M96.1 Postlaminectomy syndrome, not elsewhere classified; G89.4 Chronic pain syndrome
CPT/HCPCS: 99204

== ENCOUNTER → 2023-10-08 14:19 | Outpatient (BNVA) | payer MEDICAID, SELFPAY | PROVIDERS: PCP Family Medicine; Visit Provider Anesthesiology | DX: M46.1 Sacroiliitis, not elsewhere classified (principal); M53.3 Sacrococcygeal disorders, not elsewhere classified; M96.1 Postlaminectomy syndrome, not elsewhere classified; G89.4 Chronic pain syndrome | CPT/HCPCS: 99202 ==

== ENCOUNTER 2023-11-17 07:18 | Outpatient (REF) | payer MEDICAID, SELFPAY ==
--- NOTE | ~2023-11-17 | FL_ITS ---
EXAMINATION: XR FLUOROSCOPY WITH IMAGES CLINICAL INFORMATION: Sacrococcygeal disorders, not elsewhere classified. Bilateral SI joint injection. COMPARISON: CR pelvis 12/18/2022 TECHNIQUE: Fluoroscopy provided to: Dr. Manzo Fluoroscopy time: 0.2 minutes DAP: 0.111 mGycm2 Images: 2 FINDINGS: 2 spot PA SI joint images show needle placement and contrast injection within both SI joints . Lumbosacral fusion hardware noted. Bilateral partially imaged hip replacements. FL/FL guidance in treatment room IMPRESSION: Fluoroscopic guidance. Please refer to the full operative report for details. Electronically signed by: Augustine Wilkins MD 01/14/2024 09:00 AM EDT
== END 2023-11-17 07:19 | disposition home or self-care (01) ==
LOC: CF 07:18
PROVIDERS: Visit Provider Anesthesiology
DX: M53.3 Sacrococcygeal disorders, not elsewhere classified (principal)
CPT/HCPCS: 27096; J2795; Q9967

== ENCOUNTER 2023-11-17 14:26 | Outpatient (AMB) | payer MEDICAID, SELFPAY ==
--- NOTE | 2023-11-17 14:22 | A.OFFVIS_ITS ---
Vital Signs 11/17/23 14:37 BP 109/60 Blood Pressure Location Lt brachial Position Sitting Respiration 19 Pulse 98 Pulse Source Pulse Oximeter Pulse Oximetry (%) 96 Oxygen Delivery Method Room Air Comment Pre-op Intake Visit Reasons: Bilateral SIJ Joint Diagnostic injection Allergies aspirin [ASPIRIN] Allergy (Mild, Verified 12/24/23 13:32) GI UPSET ibuprofen [IBUPROFEN] Allergy (Mild, Verified 12/24/23 13:32) GI UPSET PFSH Medical History (Updated 12/24/23 @ 14:25 by Tatiana Moreira APRN, MANAGER BUSINESS PROCESS) Poor dentition Neck pain Low back pain Anxiety and depression History of panic attacks Chronic headaches Uses roller walker Nicotine dependence, cigarettes, uncomplicated (~1978) Hyperlipidemia History of TIA (transient ischemic attack) (~2019) Personal history of nicotine dependence (~1978) COPD (chronic obstructive pulmonary disease) Osteoarthritis of left hip Hypertension Surgical History (Updated 12/18/22 @ 14:20 by Pepe Denise) History of appendectomy (~02/13/02) Status post total hip replacement, right (~04/26/13) Social History Household Members: None Housing: Apartment Are you a primary direct support professional caregiver to a significant other at home: No Do you presently have visiting nurse or other home services: No Comment: patient refused bed alarm Patient Tobacco Use Status: Current everyday Tobacco user Tobacco use type: Cigarette Cigarette Packs Per Day: 1 Cigarettes Per Day: 20.0 Years Smoked: 42 Second Hand Smoke Exposure: No Current occupational status: unemployed Current occupation: Right Handed Female Reproductive History Menstrual Age of Menarche: 13 Physical Exam Vital Signs: Last Vital Signs Pulse 98 11/17/23 14:37 Resp 19 11/17/23 14:37 BP 109/60 11/17/23 14:37 Pulse Ox 96 11/17/23 14:37 Oxygen Delivery Method Room Air 11/17/23 14:37 Assessment & Plan Assessment & Plan (1) Sacroiliac joint dysfunction of both sides: Code(s): M53.3 - Sacrococcygeal disorders, not elsewhere classified Category: Medical (2) Sacroiliitis: Code(s): M46.1 - Sacroiliitis, not elsewhere classified Category: Medical Plan Bilateral diagnostic Sacroiliac joint injection Informed consent was explained thoroughly to the patient.? All questions about benefits and risks for the procedure were answered. Patient came to the operating room and was positioned prone on the operating table with the pillow under the pelvis.? Time-out was performed delineating side and site of the procedure name and date of of the patient in nature of the procedure. The lower back and buttocks of the patient were prepped with ChloraPrep prepped and draped with sterile utility towels.? Sterilely draped C-arm was brought over the operating field and sq picture of patient's pelvis was demonstrated on the screen.? For each joint tilting C-arm contralateral to the site of the joint the most posterior portion of the joints was superimposed with anterior silhouette of the joint.? Skin was injected in the projection of the joint slightly medial to the location of the joint with 25 gauge 1/2 inch needle using local lidocaine 2% . After that 22 gauge 3 and 1/2 inch needle was driven to the right and left joint in tunnel vision fashion.? When needle entered the joint capsule injection of the contrast was performed demonstrating intra-articular and minimally periarticular spread of the contrast.? After that 4 cc. of ropivacaine 0.5% was injected into each joint.? Upon completion of the injections the needles were removed .Sterile dressing was applied.? Upon completion of the injection patient was taken outside of the operating room to the recovery room where recovered uneventfully. Orders: Orders FL guidance in treatment room 11/17/23 M53.3 - Sacrococcygeal disorders, not elsewhere classified Coding Level of Care Code Procedure Only Diagnoses Sacroiliac joint dysfunction of both sides M53.3 Sacroiliitis M46.1
[2023-11-17 14:37] VITALS: BP 109/60; PULSE 98; RESP 19; O2SAT 96
== END 2023-11-17 15:17 | disposition home or self-care (01) ==
LOC: HO.PMCPRC 14:26
PROVIDERS: PCP Family Medicine; Visit Provider Anesthesiology
DX: M53.3 Sacrococcygeal disorders, not elsewhere classified (principal); M46.1 Sacroiliitis, not elsewhere classified
CPT/HCPCS: 27096

== ENCOUNTER 2023-11-25 11:23 | Outpatient (AMB) | payer MEDICAID, SELFPAY ==
--- NOTE | 2023-11-25 11:32 | MHC.OFFVIS ---
Vital Signs 11/25/23 12:00 Height 5 ft 6 in Weight 224 lb 8 oz BMI 36.2 BP 144/72 H Blood Pressure Location Lt brachial Position Sitting Respiration 16 Pulse 81 Pulse Source Pulse Oximeter Pulse Oximetry (%) 98 Oxygen Delivery Method Room Air Intake Visit Reasons: Bilateral SIJ joint diagnostic injection Intake Note: Patient comes in for post-op. Reports pain 5/10. Allergies aspirin [ASPIRIN] Allergy (Mild, Verified 11/25/23 11:57) GI UPSET ibuprofen [IBUPROFEN] Allergy (Mild, Verified 11/25/23 11:57) GI UPSET HPI Comments Details: Darcy is back in my office after diagnostic bilateral sacroiliac joint injection. She reported only 1 hour of more or less pain relief postoperatively this is not significant pain relief to consider sacroiliac joint as a major pain generators. We discussed the possibility of evaluating this patient's pain further. She has a history of postlaminectomy syndrome. She has significant hardware at L5-S1 in the lumbar spine. Possibility exists to treat her condition with Nevro SCS versus intrathecal pain pump. However possibility exists that her pain is coming also from vertebra genic pain syndrome. Unfortunately the MRI report available to me does not comment on any Modic type changes in the lower lumbar vertebra. I requested the patient to obtain the MRI image on the disc from [facility] where she had MRI performed. I also requested her to read brochures about Nevro SCS and I [employer]. Prior: multiple pain generators she reports consistent pain in bilateral shoulder posterior neck bilateral hips bilateral perm paramedian paraspinal areas pain in bilateral groins, pain with standing, pain with sitting down, she reports laying down her pain slightly better prolonged sitting and walking aggravate her pain. . She is walker for ambulation. She had a surgery surgery with Dr. Myrick to help her pain. In the past she had bilateral total hip replacement to help her pain in the hip however she admits that pain is as painful as it was before hip replacement. She had multiple images available including x-ray of the lumbar spine on which L5-S1 fusion is demonstrated without significant pathological changes and with proper hardware position. She also had x-ray of the pelvis which demonstrated appropriate image of the pelvis with bilateral total hip replaced. She had injections long time ago in [facility] as well as with [facility]. In fact she is scheduled for some sort of the injection with [facility] again. This injection will be addressing pain in her neck. The nature of the injection is unknown to me. She is being prescribed by [facility] hydrocodone/acetaminophen 5/325. She is also prescribed cyclobenzaprine to control her pain and help her to sleep at night, she tried NSAIDs with minimal effect including diclofenac sodium. Her primary care physician recommended her to come to this office with the request of spinal cord stimulation. Patient is very leery about spinal cord stimulator and yet she is willing to discuss it with me. Her past medical history significant for headaches mini stroke 4 year ago history of fatigue dizziness and fainting history of anxiety bipolar depression COPD shortness of breath and osteoarthritis. Her past surgical history is significant for to bilateral hip replacements, as well as transforaminal fusion by Dr. Prabhakar. She smokes cigarettes 1 pack per day for 14 years she denies drinking alcohol drinks coffee but not soda and she denies recreational drugs. [facility] Medical History Anxiety and depression Chronic headaches COPD (chronic obstructive pulmonary disease) History of panic attacks History of TIA (transient ischemic attack) (~2019) Hyperlipidemia Hypertension Low back pain Neck pain Nicotine dependence, cigarettes, uncomplicated (~1978) Osteoarthritis of left hip Personal history of nicotine dependence (~1978) Poor dentition Uses roller walker Surgical History History of appendectomy (~02/13/02) Status post total hip replacement, right (~04/26/13) Social History Household Members: None Housing: Apartment Are you a primary animal care supervisor to a significant other at home: No Do you presently have visiting nurse or other home services: No Comment: patient refused bed alarm Patient Tobacco Use Status: Current everyday Tobacco user Tobacco use type: Cigarette Cigarette Packs Per Day: 1 Cigarettes Per Day: 20.0 Years Smoked: 42 Second Hand Smoke Exposure: No Current occupational status: unemployed Current occupation: Right Handed Female Reproductive History Menstrual Age of Menarche: 13 Review of Systems Const All systems reviewed & are unremarkable except as noted in HPI and below ENT Reports Normal hearing present Neuro Reports Normal hearing present, Denies Abnormal speech present, Denies confusion and Denies Sensory deficit (Neuro) Psych Denies confusion Physical Exam Vital Signs: Last Vital Signs Pulse 81 11/25/23 12:00 Resp 16 11/25/23 12:00 BP 144/72 H 11/25/23 12:00 Pulse Ox 98 11/25/23 12:00 Oxygen Delivery Method Room Air 11/25/23 12:00 BMI result Body Mass Index 36.2 Const General: no acute distress; No confusion Nutritional Appearance: obese morbidly obese Orientation/consciousness: patient oriented x3 and No confusion Eyes General: appearance normal, both eyes and all related structures Pupils: Equal, round and reactive pupils present EOM: EOMs intact bilaterally Neck Neck: Yes full ROM Chest Chest palpation & inspection: normal inspection of the chest Resp Effort & Inspection: normal respiratory effort, able to speak in complete sentences, normal respiratory pattern, no audible wheezes and no cough Cardio Jugular venous distension: no JVD GI Inspection: Yes normal to inspection Back/Spine/Pelvis Other: Able to stand on bilateral tiptoes in bilateral heels without significant difficulty. Unable to flex herself forward or backwards because of severe pain. Attempt to perform Tiago test is demonstrating severe discomfort on lower back bilaterally. Pelvic distraction and pelvic compression tests causing mild discomfort in projection of the sacroiliac joints as well. SLR is positive for pain increase however the Stinchfield test is positive for pain increase those 2 could be confused. The patient is responding very poorly commands to perform the motions and tests. Valsalva maneuver is negative for pain increase. Fourteen finger test is positive bilaterally. Neuro General: patient oriented x3, gait normal and No confusion Cranial nerves: Yes CN's II-XII intact bilaterally, Yes Equal, round and reactive pupils present, Yes Normal hearing present and Yes Ability to bilaterally elevate shoulders present Speech: No Abnormal speech present Gait exam (Neuro): Normal gait present Motor exam (neuro): 5/5 motor strength present throughout Sensory Exam: No Sensory deficit (Neuro) Extrem General: No pedal edema Psych Speech and movement: Normal speech and movement present Affect: normal affect Attitude: cooperative Thought process: Normal thought process present Thought content: Normal thought content present Insight: Good insight present (Psych) Judgement: Good judgement present (Psych) Assessment & Plan Assessment & Plan (1) Sacroiliitis: Code(s): M46.1 - Sacroiliitis, not elsewhere classified Category: Medical (2) Sacroiliac joint dysfunction of both sides: Code(s): M53.3 - Sacrococcygeal disorders, not elsewhere classified Category: Medical (3) Postlaminectomy syndrome, lumbar: Code(s): M96.1 - Postlaminectomy syndrome, not elsewhere classified Category: Medical (4) Chronic pain syndrome: Code(s): G89.4 - Chronic pain syndrome Category: Medical Plan 1. Negative results for bilateral diagnostic sacroiliac joint injection. 2. She states that she is unable to afford $100 co-pay for psychological evaluation but she can try to obtain psychological evaluation from her psychologic counselor from the [facility]. 3. Brochures of Nevro SCS and [employer] in addition to previously given to the patient [facility] SCS were given to the patient. 4. I requested her to bring me a images of the lumbar spine MRI done in [facility] . I will evaluate that MRI and I will make decision about possibility of vertebra genic pain syndrome being a pain generators for this pain. Coding Level of Care Code Est Pt Level 3 (69640) Diagnoses Sacroiliitis M46.1 Sacroiliac joint dysfunction of both sides M53.3 Postlaminectomy syndrome, lumbar M96.1 Chronic pain syndrome G89.4
[2023-11-25 12:00] VITALS: BP 144/72; PULSE 81; RESP 16; O2SAT 98; BMI 36.2
== END 2023-11-25 11:53 | disposition home or self-care (01) ==
PROVIDERS: PCP Family Medicine; Referring Provider Family Medicine; Visit Provider Anesthesiology
DX: M46.1 Sacroiliitis, not elsewhere classified (principal); M53.3 Sacrococcygeal disorders, not elsewhere classified; M96.1 Postlaminectomy syndrome, not elsewhere classified; G89.4 Chronic pain syndrome
CPT/HCPCS: 99213

== ENCOUNTER → 2023-11-25 11:23 | Outpatient (BNVA) | payer MEDICAID, SELFPAY | PROVIDERS: PCP Family Medicine; Visit Provider Anesthesiology | DX: M46.1 Sacroiliitis, not elsewhere classified (principal); M53.3 Sacrococcygeal disorders, not elsewhere classified; M96.1 Postlaminectomy syndrome, not elsewhere classified; G89.4 Chronic pain syndrome | CPT/HCPCS: 99212 ==

== ENCOUNTER 2023-12-02 13:46 | Outpatient (REF) | payer MEDICAID, SELFPAY ==
[2023-12-02 17:39] LABS: Folate 7.9 ng/mL (> or = 4.0); Vitamin B12 657 pg/mL (200-900)
== END 2023-12-02 13:47 | disposition home or self-care (01) ==
LOC: HO.HHCL 13:46
PROVIDERS: Visit Provider Family Medicine
DX: R53.1 Weakness (principal)
CPT/HCPCS: 36415; 82607; 82746

== ENCOUNTER 2023-12-24 13:20 | Outpatient (AMB) | payer MEDICAID, SELFPAY ==
[2023-12-24 13:31] VITALS: BP 138/85; PULSE 94; O2SAT 96; BMI 36.0
--- NOTE | 2023-12-24 13:31 | A.OFFVIS_ITS ---
Vital Signs 12/24/23 13:31 Height 5 ft 6 in Weight 223 lb BMI 36.0 BP 138/85 Blood Pressure Location Lt brachial Position Sitting Pulse 94 Pulse Source Pulse Oximeter Pulse Oximetry (%) 96 Oxygen Delivery Method Room Air Intake Visit Reasons: Follow Up Allergies aspirin [ASPIRIN] Allergy (Mild, Verified 12/24/23 13:32) GI UPSET ibuprofen [IBUPROFEN] Allergy (Mild, Verified 12/24/23 13:32) GI UPSET Medication List - Last Reconciled 12/24/23 by Yoana Levy acetaminophen 650 mg (2 x 325 mg) PO Q6H PRN 30 days albuterol sulfate 90 mcg/actuation (ProAir HFA) 2 puffs inhalation Q6H PRN alprazolam (Xanax) 0.5 mg PO QID atorvastatin 40 mg PO BEDTIME cephalexin 500 mg PO QID 7 days cholecalciferol (vitamin D3) (Vitamin D3) 1 cap PO DAILY cyclobenzaprine 5 mg PO TID PRN cyclobenzaprine 10 mg PO PRN docusate sodium 100 mg PO BID 30 days fluticasone propionate 220 mcg/actuation (Flovent HFA) 1 puff inhalation BID gabapentin 600 mg PO TID hydrocodone-acetaminophen 5-325 mg 1 tab PO lamotrigine 200 mg PO BEDTIME lidocaine 5% 1 patch topical DAILY PRN lidocaine-prilocaine 2.5-2.5 % topical lisinopril 10 mg PO BEDTIME nicotine 1 patch transdermal DAILY omeprazole 1 cap PO DAILY@0630 oxcarbazepine 600 mg PO BEDTIME oxycodone 5 mg PO DAILY PRN 7 days oxycodone 5 mg PO Q6H PRN oxycodone 5 mg PO Q6H PRN oxycodone 5 mg PO Q6H PRN quetiapine 50 mg PO BEDTIME sumatriptan succinate 50 mg PO DAILY PRN tiotropium bromide (Spiriva with HandiHaler) 1 cap inhalation DAILY varenicline 1 mg PO BID warfarin (Jantoven) 5 mg PO DAILY@1800 42 days warfarin 1 mg PO DAILY zolpidem 1 tab PO BEDTIME HPI Comments Details: Patient presents back to the office today for follow-up Here to discuss options for treatment, at last visit she was offered Nevro spinal cord stimulation trial versus intrathecal drug delivery device trial She is not interested in spinal cord stimulator trial/implant. Would like to proceed with intrathecal drug delivery device trial. Unable to afford 100 dollars for [employer] point, she does have her own mental health providers but she has not received a clearance letter from them. She brought to the appointment today her MRI images on a disc for review She is also suffering from chronic headaches, she is requesting referral to Neurology Prior: Darcy is back in my office after diagnostic bilateral sacroiliac joint injection. She reported only 1 hour of more or less pain relief postoperatively this is not significant pain relief to consider sacroiliac joint as a major pain generators. We discussed the possibility of evaluating this patient's pain further. She has a history of postlaminectomy syndrome. She has significant hardware at L5-S1 in the lumbar spine. Possibility exists to treat her c ondition with Nevro SCS versus intrathecal pain pump. However possibility exists that her pain is coming also from vertebra genic pain syndrome. Unfortunately the MRI report available to me does not comment on any Modic type changes in the lower lumbar vertebra. I requested the patient to obtain the MRI image on the disc from [facility] where she had MRI performed. I also requested her to read brochures about Nevro SCS and [employer]. Prior: multiple pain generators she reports consistent pain in bilateral shoulder posterior neck bilateral hips bilateral perm paramedian paraspinal areas pain in bilateral groins, pain with standing, pain with sitting down, she reports laying down her pain slightly better prolonged sitting and walking aggravate her pain. . She is walker for ambulation. She had a surgery surgery with Dr. Myrick to help her pain. In the past she had bilateral total hip replacement to help her pain in the hip however she admits that pain is as painful as it was before hip replacement. She had multiple images available including x-ray of the lumbar spine on which L5-S1 fusion is demonstrated without significant pathological changes and with proper hardware position. She also had x-ray of the pelvis which demonstrated appropriate image of the pelvis with bilateral total hip replaced. She had injections long time ago in [facility] as well as with [facility]. In fact she is scheduled for some sort of the injection with [facility] again. This injection will be addressing pain in her neck. The nature of the injection is unknown to me. She is being prescribed by [facility] hydrocodone/acetaminophen 5/325. She is also prescribed cyclobenzaprine to control her pain and help her to sleep at night, she tried NSAIDs with minimal effect including diclofenac sodium. Her primary care physician recommended her to come to this office with the request of spinal cord stimulation. Patient is very leery about spinal cord stimulator and yet she is willing to discuss it with me. Her past medical history significant for headaches mini stroke 4 year ago history of fatigue dizziness and fainting history of anxiety bipolar depression COPD shortness of breath and osteoarthritis. Her past surgical history is significant for to bilateral hip replacements, as well as transforaminal fusion by Dr. Prabhakar. She smokes cigarettes 1 pack per day for 14 years she denies drinking alcohol drinks coffee but not soda and she denies recreational drugs. [facility] Medical History Anxiety and depression Chronic headaches COPD (chronic obstructive pulmonary disease) History of panic attacks History of TIA (transient ischemic attack) (~2019) Hyperlipidemia Hypertension Low back pain Neck pain Nicotine dependence, cigarettes, uncomplicated (~1978) Osteoarthritis of left hip Personal history of nicotine dependence (~1978) Poor dentition Uses roller walker Surgical History History of appendectomy (~02/13/02) Status post total hip replacement, right (~04/26/13) Social History Household Members: None Housing: Apartment Are you a primary long term acute care registered nurse to a significant other at home: No Do you presently have visiting nurse or other home services: No Comment: patient refused bed alarm Patient Tobacco Use Status: Current everyday Tobacco user Tobacco use type: Cigarette Cigarette Packs Per Day: 1 Cigarettes Per Day: 20.0 Years Smoked: 42 Second Hand Smoke Exposure: No Current occupational status: unemployed Current occupation: Right Handed Female Reproductive History Menstrual Age of Menarche: 13 Review of Systems Const All systems reviewed & are unremarkable except as noted in HPI and below Physical Exam Vital Signs: Last Vital Signs Pulse 94 12/24/23 13:31 BP 138/85 12/24/23 13:31 Pulse Ox 96 12/24/23 13:31 Oxygen Delivery Method Room Air 12/24/23 13:31 BMI result Body Mass Index 36.0 General: awake, alert, oriented. Answers questions appropriately. Fully engaged in examination. Skin: warm, dry, intact HEENT: Normocephalic. Hearing intact. Cardiac: External chest normal in appearance. Respiratory: No cough, audible wheezing or stridor. Abdomen: without gross distension. MS: No obvious swelling or deformities. Able to transition from sit to stand unassisted. Ambulates with bilaterally normal heel strike and toe off Bilateral lower extremity strength 5/5 Diffuse tenderness along her upper and lower back Nontender over PSIS bilaterally SLR negative bilaterally Valsalva negative Neurological: Oriented to person, place, time and situation. Thought process intact. Ambulates with the use a Rollator walker Psychiatric: Appropriate mood and affect. Good judgment and insight. Assessment & Plan Assessment & Plan (1) Sacroiliitis: Code(s): M46.1 - Sacroiliitis, not elsewhere classified Category: Medical (2) Sacroiliac joint dysfunction of both sides: Code(s): M53.3 - Sacrococcygeal disorders, not elsewhere classified Category: Medical (3) Postlaminectomy syndrome, lumbar: Code(s): M96.1 - Postlaminectomy syndrome, not elsewhere classified Category: Medical (4) Chronic pain syndrome: Code(s): G89.4 - Chronic pain syndrome Category: Medical Plan Patient presents the office today for follow-up chronic back pain. Neurology referral ordered for chronic headaches Information given to patient to provide to her own mental health providers who are willing to send mental health clearance letter so she can proceed with implantable device Once we receive the mental health clearance letter will plan for fluoroscopy g uided intrathecal drug delivery trial. TENs unit ordered. MRI disc was given to for his review per his request at last patient visit All questions and concerns were answered, patient agrees with the plan. Follow up after injection, sooner if needed Orders: Referrals Neurology Referral G89.29 - Other chronic pain, R51.9 - Headache, unspecified Coding Level of Care Code Est Pt Level 3 (94823) Complex EM visit Add On G2211 Diagnoses Sacroiliitis M46.1 Sacroiliac joint dysfunction of both sides M53.3 Postlaminectomy syndrome, lumbar M96.1 Chronic pain syndrome G89.4
== END 2023-12-24 13:54 | disposition home or self-care (01) ==
PROVIDERS: PCP Family Medicine; Visit Provider Registered Nurse Emergency
DX: M46.1 Sacroiliitis, not elsewhere classified (principal); M53.3 Sacrococcygeal disorders, not elsewhere classified; M96.1 Postlaminectomy syndrome, not elsewhere classified; G89.4 Chronic pain syndrome
CPT/HCPCS: 99213

== ENCOUNTER → 2023-12-24 13:20 | Outpatient (BNVA) | payer MEDICAID, SELFPAY | PROVIDERS: PCP Family Medicine; Visit Provider Registered Nurse Emergency | DX: M46.1 Sacroiliitis, not elsewhere classified (principal); M53.3 Sacrococcygeal disorders, not elsewhere classified; M96.1 Postlaminectomy syndrome, not elsewhere classified; R51.9 Headache, unspecified; G89.4 Chronic pain syndrome | CPT/HCPCS: 99212 ==

== ENCOUNTER 2024-03-29 06:08 | Outpatient (REF) | payer MEDICAID, SELFPAY ==
--- NOTE | ~2024-03-29 | FL_ITS ---
EXAMINATION: FLUORO GUIDANCE IN TREATMENT ROOM CLINICAL INFORMATION: Chronic pain syndrome. COMPARISON: None available. TECHNIQUE: Fluoroscopy supervised by: Dr. Wu Manzo. Fluoroscopy time: 0.1 minutes. Cumulative Dose: 3.17 mGy. DAP: 0.0551 mGy-m2 (milligray-meter squared). Images: 2. FINDINGS: There is posterior fixation hardware at L4-L5 with an interbody device and pedicular screws. There is a needle positioned at the L2 level just to the left of the midline overlying the epidural space. FL/FL guidance in treatment room IMPRESSION: Fluoroscopy during procedure. Please see procedure report for additional information. Electronically signed by: Iron Garces MD 05/18/2024 04:52 PM LEATHA
== END 2024-03-29 06:09 | disposition home or self-care (01) ==
LOC: CF 06:08
PROVIDERS: Visit Provider Anesthesiology
DX: M46.1 Sacroiliitis, not elsewhere classified (principal); M53.3 Sacrococcygeal disorders, not elsewhere classified; M96.1 Postlaminectomy syndrome, not elsewhere classified; G89.4 Chronic pain syndrome
CPT/HCPCS: 62323; J0665; J2003

== ENCOUNTER 2024-03-29 09:40 | Outpatient (AMB) | payer MEDICAID, SELFPAY ==
[2024-03-29 09:49] VITALS: BP 170/88; PULSE 85; RESP 15; O2SAT 98
--- NOTE | 2024-03-29 09:49 | MHC.OFFVIS ---
Vital Signs 03/29/24 09:49 03/29/24 10:10 BP 170/88 H 154/84 H Blood Pressure Location Lt brachial Lt brachial Position Sitting Supine Respiration 15 16 Pulse 85 85 Pulse Source Pulse Oximeter Pulse Oximeter Pulse Oximetry (%) 98 96 Oxygen Delivery Method Room Air Room Air Intake Visit Reasons: ITDD TRIAL WITH BUPIVCAINE Allergies aspirin [ASPIRIN] Allergy (Mild, Verified 03/29/24 09:49) GI UPSET ibuprofen [IBUPROFEN] Allergy (Mild, Verified 03/29/24 09:49) GI UPSET Medication List - Last Reconciled 03/29/24 by Juana Mahan LPN acetaminophen 650 mg (2 x 325 mg) PO Q6H PRN 30 days albuterol sulfate 90 mcg/actuation (ProAir HFA) 2 puffs inhalation Q6H PRN alprazolam (Xanax) 0.5 mg PO QID atorvastatin 40 mg PO BEDTIME cephalexin 500 mg PO QID 7 days cholecalciferol (vitamin D3) (Vitamin D3) 1 cap PO DAILY cyclobenzaprine 5 mg PO TID PRN cyclobenzaprine 10 mg PO PRN docusate sodium 100 mg PO BID 30 days fluticasone propionate 220 mcg/actuation (Flovent HFA) 1 puff inhalation BID gabapentin 600 mg PO TID hydrocodone-acetaminophen 5-325 mg 1 tab PO lamotrigine 200 mg PO BEDTIME lidocaine 5% 1 patch topical DAILY PRN lidocaine-prilocaine 2.5-2.5 % topical lisinopril 10 mg PO BEDTIME nicotine 1 patch transdermal DAILY omeprazole 1 cap PO DAILY@0630 oxcarbazepine 600 mg PO BEDTIME oxycodone 5 mg PO DAILY PRN 7 days oxycodone 5 mg PO Q6H PRN oxycodone 5 mg PO Q6H PRN oxycodone 5 mg PO Q6H PRN quetiapine 50 mg PO BEDTIME sumatriptan succinate 50 mg PO DAILY PRN tiotropium bromide (Spiriva with HandiHaler) 1 cap inhalation DAILY varenicline 1 mg PO BID warfarin (Jantoven) 5 mg PO DAILY@1800 42 days warfarin 1 mg PO DAILY zolpidem 1 tab PO BEDTIME [facility] Medical History (Updated 12/24/23 @ 14:25 by Tatiana Moreira APRN, SALES OPERATIONS CONSULTANT) Poor dentition Neck pain Low back pain Anxiety and depression History of panic attacks Chronic headaches Uses roller walker Nicotine dependence, cigarettes, uncomplicated (~1978) Hyperlipidemia History of TIA (transient ischemic attack) (~2019) Personal history of nicotine dependence (~1978) COPD (chronic obstructive pulmonary disease) Osteoarthritis of left hip Hypertension Surgical History (Updated 12/18/22 @ 14:20 by Pepe Denise) History of appendectomy (~02/13/02) Status post total hip replacement, right (~04/26/13) Social History Household Members: None Housing: Apartment Are you a primary administrator health care facility to a significant other at home: No Do you presently have visiting nurse or other home services: No Comment: patient refused bed alarm Patient Tobacco Use Status: Current everyday Tobacco user Tobacco use type: Cigarette Cigarette Packs Per Day: 1 Cigarettes Per Day: 20.0 Years Smoked: 42 Second Hand Smoke Exposure: No Current occupational status: unemployed Current occupation: Right Handed Female Reproductive History Menstrual Age of Menarche: 13 Physical Exam Vital Signs: Last Vital Signs Pulse 85 03/29/24 10:10 Resp 16 03/29/24 10:10 BP 154/84 H 03/29/24 10:10 Pulse Ox 96 03/29/24 10:10 Oxygen Delivery Method Room Air 03/29/24 10:10 Assessment & Plan Assessment & Plan (1) Sacroiliitis: Code(s): M46.1 - Sacroiliitis, not elsewhere classified Category: Medical (2) Sacroiliac joint dysfunction of both sides: Code(s): M53.3 - Sacrococcygeal disorders, not elsewhere classified Category: Medical (3) Postlaminectomy syndrome, lumbar: Code(s): M96.1 - Postlaminectomy syndrome, not elsewhere classified Category: Medical (4) Chronic pain syndrome: Code(s): G89.4 - Chronic pain syndrome Category: Medical Plan Intrathecal pain pump trial bupivacaine. Informed consent was explained to the patient. All questions were explained and answered.? The patient was taken inside of the operating room where he was positioned prone on the operating table.? Time-out was performed delineating patient's name and date of , correct site, side, the nature of the procedure, patient's allergy, preoperative antibiotic if needed.? All operating room staff And the patient were participating in OR time-out procedure. ?the patient's lower back was prepped with ChloraPrep and draped with sterile? utility draped.? Sterilely draped C-arm was brought over the operating field and sq picture of? lumbar vertebrae were delineated on the screen. the target of needle insertion was chosen between L2 and L3 vertebrae. The projection of the right lamina of the L3 vertebra was chosen as the starting point of the injection.? 22 gauge 3-1/2 inch pencil point needle was inserted through the skin after skin wheal was raised with lidocaine 2%.? The needle was directed to the L2-L3 interlaminar space.? The advancement of the needle was performed on intermittent anterior posterior and lateral views.? On anterior posterior view needle was kept strictly in the midline.? On the lateral view needle entered in the projection of the center of the spinal canal.? At that moment the stylet was removed from the needle and clear flow CSF was detected in the needle hub.? After that? 0.8 mL of the solution containing 2 mg of bupivacaine was injected into the needle.? After that needle was removed sterile dressing was applied.? Patient tolerated procedure well.? She was taken outside of the operating room to the recovery room where she recovered uneventfully.? Orders: Orders FL guidance in treatment room Today G89.4 - Chronic pain syndrome Coding Level of Care Code Procedure Only Diagnoses Sacroiliitis M46.1 Sacroiliac joint dysfunction of both sides M53.3 Postlaminectomy syndrome, lumbar M96.1 Chronic pain syndrome G89.4
[2024-03-29 10:10] VITALS: BP 154/84; PULSE 85; RESP 16; O2SAT 96
== END 2024-03-29 11:07 | disposition home or self-care (01) ==
LOC: HO.PMCPRC 09:40
PROVIDERS: PCP Family Medicine; Visit Provider Anesthesiology
DX: M96.1 Postlaminectomy syndrome, not elsewhere classified (principal); M46.1 Sacroiliitis, not elsewhere classified; M53.3 Sacrococcygeal disorders, not elsewhere classified; G89.4 Chronic pain syndrome
CPT/HCPCS: 62323

== ENCOUNTER 2024-04-18 10:52 | Emergency (ER) | payer MEDICAID, SELFPAY ==
--- NOTE | ~2024-04-18 | XR_ITS ---
EXAMINATION: XR LUMBOSACRAL SPINE 3 views. Left hip with AP pelvis 3 views. CLINICAL INFORMATION: pain COMPARISON: Lumbar spine 11/14/2022. TECHNIQUE: Three views of the lumbosacral spine. FINDINGS: There is normal lumbar lordosis. The vertebral heights and alignment is normal. There are 4 lumbar vertebral bodies with a sacralized L5 vertebra. There is disc prostheses at the L4-5 disc level with bilateral L4 and L5 pedicle screws and thickening rods for posterior fusion. The lumbar numbering remains similar to previous lumbar spine x-ray 01/25/2019 . Mild degenerative disc changes L1-2 and L2-3 disc levels is noted. Paravertebral soft tissues are normal. AP pelvis and left hip: There bilateral total hip prosthesis with prosthetic components in satisfactory alignment. There is no fracture, dislocation of the pelvis. SI joints are normal. No periprosthetic fractures in either proximal femoral luis or the acetabular regions. Especially the left hip appears unremarkable. XR/XR hip LT min 2V w/wo pel IMPRESSION: Stable ventral 4-5 disc prostheses and posterior hardware. No loosening seen. Mild degenerative disc changes at L2-3 and L1-2 disc levels Bilateral hip prosthesis in satisfactory alignment. There is no periprosthetic or pelvic fractures seen. There is no prosthetic loosening seen. The soft tissues are normal. Electronically signed by: Markel Garza MD 04/18/2024 12:41 PM [facility]
--- NOTE | ~2024-04-18 | XR_ITS ---
EXAMINATION: XR LUMBOSACRAL SPINE 3 views. Left hip with AP pelvis 3 views. CLINICAL INFORMATION: pain COMPARISON: Lumbar spine 11/14/2022. TECHNIQUE: Three views of the lumbosacral spine. FINDINGS: There is normal lumbar lordosis. The vertebral heights and alignment is normal. There are 4 lumbar vertebral bodies with a sacralized L5 vertebra. There is disc prostheses at the L4-5 disc level with bilateral L4 and L5 pedicle screws and thickening rods for posterior fusion. The lumbar numbering remains similar to previous lumbar spine x-ray 01/25/2019 . Mild degenerative disc changes L1-2 and L2-3 disc levels is noted. Paravertebral soft tissues are normal. AP pelvis and left hip: There bilateral total hip prosthesis with prosthetic components in satisfactory alignment. There is no fracture, dislocation of the pelvis. SI joints are normal. No periprosthetic fractures in either proximal femoral luis or the acetabular regions. Especially the left hip appears unremarkable. XR/XR lumbar spine 2-3V IMPRESSION: Stable ventral 4-5 disc prostheses and posterior hardware. No loosening seen. Mild degenerative disc changes at L2-3 and L1-2 disc levels Bilateral hip prosthesis in satisfactory alignment. There is no periprosthetic or pelvic fractures seen. There is no prosthetic loosening seen. The soft tissues are normal. Electronically signed by: Markel Garza MD 04/18/2024 12:41 PM EST
[2024-04-18 10:58] VITALS: BP 168/100; PULSE 99; O2SAT 98
[2024-04-18 11:44] VITALS: BP 133/90; PULSE 90; RESP 20; TEMP 36.1; O2SAT 95; BMI 34.2
--- NOTE | 2024-04-18 13:54 | ED.BACK ---
HPI - Back Pain/Injury General Chief Complaint: Back Pain/Injury Stated Complaint: LOW BACK/RAD LLE PAIN X6D PER EMS Time Seen by Provider: 04/18/24 13:43 Source: patient Mode of arrival: ambulatory Limitations: no limitations History of Present Illness ED Provider: ORI PEÑA PA-C HPI Narrative: 58 year old female with pmhx significant for HDL, hypertension, panic attacks, TIA (2019), and nicotine dependence presents to the ED today via EMS from home for evaluation of left hip and left lower back pain x 2 days. She reports trip and fall over her couch 2 weeks ago. Denies head strike or LOC. Not on AC. Since this time has had minimal pain to the left hip/left low back. She states that the pain worsened yesterday. The pain extends from her left low back/left hip to the lateral aspect of her left thigh. Describes it as a burning pain. No further radiation. No new injury or trauma other than the trip and fall 2 weeks ago. Admits to taking multiple pain medications at home without improvement. She has trialed Tylenol, Motrin, cyclobenzaprine, Vicodin, etc. admits to difficulty with ambulation. She ambulates with a walker at baseline. Reports living on the 3rd floor of an apartment building and is concerned about how she was going to get around. She was status post total hip replacement bilaterally and lumbar fusion. Denies fever, chills, saddle anesthesia, bowel or bladder incontinence or retention, dysuria, hematuria, numbness/tingling/weakness of the lower extremities. Related Data Home Medications ?Medication ?Instructions ?Recorded ?Confirmed cyclobenzaprine 5 mg tablet 5 mg PO TID PRN Pain 03/12/20 03/29/24 alprazolam 0.5 mg tablet (Xanax) 0.5 mg PO QID 07/23/20 03/29/24 lisinopril 10 mg tablet 10 mg PO BEDTIME 07/23/20 03/29/24 albuterol sulfate 90 mcg/actuation 2 puff inhalation Q6H PRN 08/21/20 03/29/24 aerosol inhaler (ProAir HFA) Shortness Of Breath Or Wheezing fluticasone propionate 220 1 puff inhalation BID 08/21/20 03/29/24 mcg/actuation HFA aerosol inhaler (Flovent HFA) tiotropium bromide 18 mcg capsule 1 cap inhalation DAILY 08/21/20 03/29/24 with inhalation device (Spiriva with HandiHaler) oxcarbazepine 600 mg tablet 600 mg PO BEDTIME 01/16/21 03/29/24 lamotrigine 200 mg tablet 200 mg PO BEDTIME 01/23/21 03/29/24 cholecalciferol (vitamin D3) 25 1 cap PO DAILY 01/29/21 03/29/24 mcg (1,000 unit) capsule (Vitamin D3) gabapentin 600 mg tablet 600 mg PO TID 01/29/21 03/29/24 lidocaine 5 % topical patch 1 patch topical DAILY PRN Pain 01/29/21 03/29/24 (Scale Score 1-3) nicotine 21 mg/24 hr daily 1 patch transdermal DAILY 01/29/21 03/29/24 transdermal patch omeprazole 20 mg capsule,delayed 1 cap PO DAILY@0630 01/29/21 03/29/24 release quetiapine 50 mg tablet 50 mg PO BEDTIME 01/29/21 03/29/24 sumatriptan succinate 50 mg tablet 50 mg PO DAILY PRN Migraine 01/29/21 03/29/24 Headache zolpidem 10 mg tablet 1 tab PO BEDTIME 01/29/21 03/29/24 atorvastatin 40 mg tablet 40 mg PO BEDTIME 10/08/23 03/29/24 cyclobenzaprine 10 mg tablet 10 mg PO PRN muscle pain 10/08/23 03/29/24 hydrocodone 5 mg-acetaminophen 325 1 tab PO 10/08/23 03/29/24 mg tablet lidocaine-prilocaine 2.5 %-2.5 % topical 10/08/23 03/29/24 topical cream varenicline 1 mg tablet 1 mg PO BID 10/08/23 03/29/24 Previous Rx's ?Medication ?Instructions ?Recorded acetaminophen 325 mg tablet 650 mg (2 x 325 mg) PO Q6H PRN 02/01/21 Pain, Mild (Pain Scale 1-3) 30 days #240 tabs warfarin 5 mg tablet (Jantoven) 5 mg PO DAILY@1800 42 days #42 tabs 02/01/21 warfarin 1 mg tablet 1 mg PO DAILY #20 tabs 02/04/21 docusate sodium 100 mg capsule 100 mg PO BID 30 days #60 caps 02/19/21 oxycodone 5 mg tablet 5 mg PO DAILY PRN Pain, Moderate 04/11/21 (Pain Scale 4-6 7 days #7 tabs cephalexin 500 mg capsule 500 mg PO QID 7 days #28 caps 07/29/22 oxycodone 5 mg tablet 5 mg PO Q6H PRN pain #30 tabs 08/12/22 oxycodone 5 mg tablet 5 mg PO Q6H PRN pain #30 tabs 08/19/22 oxycodone 5 mg tablet 5 mg PO Q6H PRN pain #30 tabs 08/28/22 baclofen 5 mg tablet 5 mg PO TID PRN muscle pain #10 04/18/24 tabs prednisone 20 mg tablet 20 mg PO DAILY 5 days #5 tabs 04/18/24 Allergies Allergy/AdvReac Type Severity Reaction Status Date / Time aspirin [ASPIRIN] Allergy Mild GI UPSET Verified 04/18/24 11:46 ibuprofen [IBUPROFEN] Allergy Mild GI UPSET Verified 04/18/24 11:46 Review of Systems Review of Systems: Constitutional: No fever, chills, fatigue, night sweats, weight changes ENT/Mouth: No ear pain, hearing loss, nasal congestion, sinus pain, rhinorrhea, sore throat Eyes: No eye pain, swelling, redness, vision changes, discharge Cardio: No chest pain, palpitations, PAINTING, orthopnea, peripheral edema Pulm: No SOB, cough, sputum, wheezing, dyspnea, hemoptysis GI: No nausea, vomiting, hematemesis, abdominal pain, diarrhea, constipation, hematochezia, melena : No irregular bleeding, dysuria, frequency, urgency, hesitancy, hematuria, flank pain, urinary flow changes, urinary incontinence or retention MSK: No neck pain, joint pain, myalgias, +hip/back pain Skin: No lesions, rashes Neuro: No weakness, numbness, paresthesias, LOC, dizziness, headache Psych: No anxiety/panic, depression, SI/HI, AH/VH All other systems reviewed and are negative. [facility] Past Medical History Attestation statement: The following information was validated with the patient. Source: old records reviewed and nursing notes reviewed Medical History Poor dentition Neck pain Low back pain Anxiety and depression History of panic attacks Chronic headaches Uses roller walker Nicotine dependence, cigarettes, uncomplicated (~1978) Hyperlipidemia History of TIA (transient ischemic attack) (~2019) Personal history of nicotine dependence (~1978) COPD (chronic obstructive pulmonary disease) Osteoarthritis of left hip Hypertension Surgical History History of appendectomy (~02/13/02) Status post total hip replacement, right (~04/26/13) Social History Social History Household Members: None Housing: Apartment Are you a primary child care center assistant director to a significant other at home: No Do you presently have visiting nurse or other home services: No Comment: patient refused bed alarm Patient Tobacco Use Status: Current everyday Tobacco user Tobacco use type: Cigarette Cigarette Packs Per Day: 1 Cigarettes Per Day: 20.0 Years Smoked: 42 Second Hand Smoke Exposure: No Advance Directives: No Advance Directives Information Provided: Yes Current occupational status: unemployed Current occupation: Right Handed Physical Exam Vital Signs: Vital Signs: Last Vital Signs Temp 96.9 F 04/18/24 15:26 Pulse 90 04/18/24 15:26 Resp 20 04/18/24 15:26 BP 133/90 H 04/18/24 15:26 Pulse Ox 95 04/18/24 15:26 O2 Del Method Room Air 04/18/24 15:26 BMI result Body Mass Index 34.2 Hypertensive, afebrile General: Well appearing, in no acute distress. Skin: Warm, dry, intact. No rashes or lesions. Head: Normocephalic, atraumatic. EENT: Hearing is intact b/l. Conjunctiva clear. PERRLA. EOM intact. Moist mucous membranes.? Cardiac: Chest wall symmetric Lungs: Normal respiratory effort without accessory muscle use. CTA bilaterally Abdomen: Soft, non-tender, non-distended Back: No midline spinous tenderness or step-off deformity. There is minimal left lumbar paraspinal muscle tenderness to palpation. No palpable spasm or fluctuance. No overlying erythema or deformity. No warmth. Positive straight leg raise on left. Ext: Upper and lower extremities atraumatic, without tenderness, deformity, swelling or erythema Neuro: AOx3. Normal speech. Strength 5/5 intact throughout. No saddle anesthesia. Sensation intact to light touch. NV intact distally. Ambulating with slow but steady gait assisted by walker. Psych: Appropriate mood and affect. Responds appropriately to questions. Course Course Course Narrative: X-ray of lumbar spine shows stable ventral 4-5 disc prosthesis and posterior hardware in place without loosening. There are mild degenerative disc changes at L2-3 and L1-2. X-ray of hips show bilateral hip prosthesis in satisfactory alignment without periprosthetic or pelvic fractures visualized. There is no prosthetic loosening visualized. Soft tissues are normal. > her exam is consistent with sciatica. I did discuss results with patient. Baclofen provided in the ED with good effect. Will send this to pharmacy however I did express to patient that she could benefit from outpatient physical therapy. she does report concern regarding living situation/pain. She did request PT/case management consult which was placed. Physical therapy evaluated patient today and recommends home with services. I spoke with [employer] from who will be placing referral for services. Patient is agreeable with this. She has been ambulating with steady gait using walker. Patient has remained stable throughout ED visit today. Discussed worrisome signs and symptoms and when to return to the ED. All questions answered at this time. Patient is agreeable with disposition and stable for discharge. Medications Administered Discontinued Medications Generic Name Dose Route Start Last Admin Trade Name Jaki PRN Reason Stop Dose Admin Baclofen 10 mg 04/18/24 14:26 04/18/24 14:53 Baclofen 10 Mg Tablet PO 04/18/24 14:27 10 mg ONCE ONE Administration Lidocaine 1 patch 04/18/24 14:26 04/18/24 14:54 Lidocaine 4 % Patch Adh..Patch TRANSDERMA 04/18/24 14:27 1 patch ONCE ONE Administration Protocol Medical Decision Making Medical Decision Making MDM Narrative: 58 year old female with pmhx significant for HDL, hypertension, panic attacks, TIA (2019), and nicotine dependence presents to the ED today via EMS from home for evaluation of left hip and left lower back pain x 2 days. She was hypertensive, vitals are otherwise WNL. She is nontoxic-appearing and in no acute distress. Lying comfortably on the exam bed. Exam significant for No midline spinous tenderness or step-off deformity. There is minimal left lumbar paraspinal muscle tenderness to palpation. No palpable spasm or fluctuance. No overlying erythema or deformity. No warmth. Positive straight leg raise on left. She was ambulating with slow but steady gait assisted by walker. CMS intact. Differential diagnosis includes MSK sprain/strain, hardware dislodgement, fracture, dislocation, contusion, hematoma, sciatica, arthritis. Unlikely cauda equina, epidural abscess, Guillain-Dana, cord compression, threat to limb, NV compromise. Plan for imaging, pain control, re-evaluation. Differential Diagnosis Differential Diagnoses: The differential diagnosis associated with the presentation includes as above. Admission/Observation not indicated. Independent Interpretation I performed an independent interpretation of an: Plain X-Ray Interpretation: X-ray lumbar spine without fracture X-ray left hip without fracture Radiology Impression Discussion of test interpretation with radiology: I have reviewed the radiologist's reading. Radiologist Impression: EXAMINATION: XR LUMBOSACRAL SPINE 3 views. Left hip with AP pelvis 3 views. CLINICAL INFORMATION: pain COMPARISON: Lumbar spine 11/14/2022. TECHNIQUE: Three views of the lumbosacral spine. FINDINGS: There is normal lumbar lordosis. The vertebral heights and alignment is normal. There are 4 lumbar vertebral bodies with a sacralized L5 vertebra. There is disc prostheses at the L4-5 disc level with bilateral L4 and L5 pedicle screws and thickening rods for posterior fusion. The lumbar numbering remains similar to previous lumbar spine x-ray 01/25/2019 . Mild degenerative disc changes L1-2 and L2-3 disc levels is noted. Paravertebral soft tissues are normal. AP pelvis and left hip: There bilateral total hip prosthesis with prosthetic components in satisfactory alignment. There is no fracture, dislocation of the pelvis. SI joints are normal. No periprosthetic fractures in either proximal femoral luis or the acetabular regions. Especially the left hip appears unremarkable. XR/XR lumbar spine 2-3V IMPRESSION: Stable ventral 4-5 disc prostheses and posterior hardware. No loosening seen. Mild degenerative disc changes at L2-3 and L1-2 disc levels Bilateral hip prosthesis in satisfactory alignment. There is no periprosthetic or pelvic fractures seen. There is no prosthetic loosening seen. The soft tissues are normal. Electronically signed by: Markel Garza MD 04/18/2024 12:41 PM [facility] External Record Review External record reviewed: Inpatient record, Office record, Outpatient record, Prior outpatient labs, Prior outpatient radiology, Primary care record and Outside ED record Prescription Management I considered prescription management with: Other (lido patch, baclofen) Chronic Conditions Patient?s care impacted by: Other (chronic back pain) Social Determinants Patient?s care significantly limited by Social Determinants of Health including: Other Social Determinant of Health Critical Care Time Critical Care Time Critical Care Time: No Discharge Plan Discharge Clinical Impression: Sciatica of left side Patient Disposition: Home, Self-Care Instructions: Sciatica (ED), Lower Back Exercises (ED) Additional Instructions: You were evaluated in the ED today for left hip/lower back pain. The x-rays of your low back and your hip do not demonstrate acute fracture. All hardware is in place. Your physical exam is consistent with sciatic like pain. As discussed, treatment for this is pain control however definitive treatment consisted of physical therapy. You were evaluated by our physical therapist today with recommendation for visiting nurse for home services. You also spoke with case management and they have sent in a referral for this. I have sent baclofen to your pharmacy. This is a muscle relaxer. I have also sent a short course of steroids to help with inflammation. Follow up with your PCP and orthopedic doctor outpatient. Return with new or worsening symptoms. In the case of an emergency call 911. Prescriptions: New baclofen 5 mg tablet 5 mg PO TID PRN (Reason: muscle pain) Qty: 10 0RF prednisone 20 mg tablet 20 mg PO DAILY 5 Days Qty: 5 0RF No Action warfarin 1 mg tablet 1 mg PO DAILY Qty: 20 0RF docusate sodium 100 mg capsule 100 mg PO BID 30 Days Qty: 60 0RF oxycodone 5 mg tablet 5 mg PO DAILY PRN (Reason: Pain, Moderate (Pain Scale 4-6) 7 Days Qty: 7 0RF oxycodone 5 mg tablet 5 mg PO Q6H PRN (Reason: pain) Qty: 30 0RF Rx Instructions: Partial Fill upon patient request. oxycodone 5 mg tablet 5 mg PO Q6H PRN (Reason: pain) Qty: 30 0RF Rx Instructions: partial fill upon request oxcarbazepine 600 mg tablet 600 mg PO BEDTIME lamotrigine 200 mg tablet 200 mg PO BEDTIME zolpidem 10 mg tablet 1 tab PO BEDTIME quetiapine 50 mg tablet 50 mg PO BEDTIME gabapentin 600 mg tablet 600 mg PO TID omeprazole 20 mg capsule,delayed release(DR/EC) 1 cap PO DAILY@0630 cholecalciferol (vitamin D3) [Vitamin D3] 25 mcg (1,000 unit) capsule 1 cap PO DAILY sumatriptan succinate 50 mg tablet 50 mg PO DAILY PRN (Reason: Migraine Headache) lidocaine 5 % adhesive patch,medicated 1 patch topical DAILY PRN (Reason: Pain (Scale Score 1-3)) nicotine 21 mg/24 hr Patch 24 Hour 1 patch TRANSDERMAL DAILY acetaminophen 325 mg Tablet 650 mg PO Q6H PRN (Reason: Pain, Mild (Pain Scale 1-3)) 30 Days Qty: 240 0RF warfarin [Jantoven] 5 mg Tablet 5 mg PO DAILY@1800 42 Days Qty: 42 0RF cyclobenzaprine 5 mg tablet 5 mg PO TID PRN (Reason: Pain) alprazolam [Xanax] 0.5 mg tablet 0.5 mg PO QID lisinopril 10 mg tablet 10 mg PO BEDTIME Flovent HFA 220 mcg/actuation HFA aerosol inhaler 1 puff inhalation BID albuterol sulfate [ProAir HFA] 90 mcg/actuation HFA aerosol inhaler 2 puff inhalation Q6H PRN (Reason: Shortness Of Breath Or Wheezing) Spiriva with HandiHaler 18 mcg capsule, w/inhalation device 1 cap inhalation DAILY Rx Instructions: puncture 1 cap using device; one dose = 2 inhalations oxycodone 5 mg tablet 5 mg PO Q6H PRN (Reason: pain) Qty: 30 0RF Rx Instructions: Partial Fill upon patient request. hydrocodone-acetaminophen 5-325 mg tablet 1 tab PO atorvastatin 40 mg tablet 40 mg PO BEDTIME varenicline 1 mg tablet 1 mg PO BID cyclobenzaprine 10 mg tablet 10 mg PO PRN (Reason: muscle pain) lidocaine-prilocaine 2.5-2.5 % cream topical cephalexin 500 mg capsule 500 mg PO QID 7 Days Qty: 28 0RF Referrals: Nicky Thibodeaux MD [Primary Care Provider] - Interventions: ED Discharge Assessment Last Done: 04/18/24 15:26 Discharge Date/Time: 04/18/24 15:26 Print Language: Swedish
[2024-04-18] MEDS: Baclofen 10 MG TABLET PO (14:53)
[2024-04-18] MEDS: Lidocaine 4 % Patch ADH..PATCH 1 PATCH TRANSDERMA (14:54)
[2024-04-18 15:26] VITALS: BP 133/90; PULSE 90; RESP 20; TEMP 36.1; O2SAT 95
--- NOTE | 2024-04-18 15:38 | MHC.CM.PN ---
Addendum entered by Mylene Paz 04/19/24 08:14: Late entry: [facility] has accepted pts referral. Original Note: This CM met with pt to discuss PT's recommendations for home with services, pt agreeable and would like a referral placed to [facility]. Referral placed to [facility], awaiting agency acceptance. Pt has her own ride home today.
== END 2024-04-18 15:26 | disposition home or self-care (01) ==
PROVIDERS: Emergency Provider Emergency Medicine; PCP Family Medicine
DX: M54.32 Sciatica, left side (principal); M54.50 Low back pain, unspecified; I10 Essential (primary) hypertension; Z79.899 Other long term (current) drug therapy
CPT/HCPCS: 72100; 73502; 97162; 99282; 99284

== ENCOUNTER → 2024-04-18 12:00 | Outpatient (BNV) | payer MEDICAID, SELFPAY | PROVIDERS: Visit Provider Radiology Diagnostic Radiology | DX: M25.552 Pain in left hip (principal) | CPT/HCPCS: 72100; 73502 ==

== ENCOUNTER 2024-04-25 09:53 | Outpatient (REF) | payer MEDICAID, SELFPAY ==
--- NOTE | ~2024-04-25 | XR_ITS ---
EXAMINATION: XR KNEE 3 VIEWS RIGHT, XR KNEE 1 VIEW LEFT HISTORY: M17.11 - Unilateral primary osteoarthritis, right knee COMPARISON: There are no prior studies available for comparison. FINDINGS: Three views of the right knee and a standing AP view of the left knee are submitted. Osseous mineralization is normal. There is no fracture or dislocation. The joint spaces are preserved. The soft tissues are unremarkable. There is no joint effusion. XR/XR knee RT 3V IMPRESSION: Unremarkable examination of the right knee. Electronically signed by: Calvin Grimes MD 04/28/2024 12:56 PM [facility]
--- NOTE | ~2024-04-25 | XR_ITS ---
EXAMINATION: XR KNEE 3 VIEWS RIGHT, XR KNEE 1 VIEW LEFT HISTORY: M17.11 - Unilateral primary osteoarthritis, right knee COMPARISON: There are no prior studies available for comparison. FINDINGS: Three views of the right knee and a standing AP view of the left knee are submitted. Osseous mineralization is normal. There is no fracture or dislocation. The joint spaces are preserved. The soft tissues are unremarkable. There is no joint effusion. XR/XR knee LT 1V IMPRESSION: Unremarkable examination of the right knee. Electronically signed by: Calvin Grimes MD 04/28/2024 12:56 PM EST
== END 2024-04-25 09:54 | disposition home or self-care (01) ==
LOC: HO.HOSX 09:53
PROVIDERS: Visit Provider Physician Assistant
DX: M17.11 Unilateral primary osteoarthritis, right knee (principal); M25.562 Pain in left knee
CPT/HCPCS: 73560; 73562; 99212

== ENCOUNTER 2024-04-25 15:02 | Outpatient (AMB) | payer MEDICAID, SELFPAY ==
--- NOTE | 2024-04-25 15:22 | A.OFFVIS_ITS ---
Vital Signs 04/25/24 15:23 Height 5 ft 6 in Weight 212 lb BMI 34.2 Intake Visit Reasons: Newprob-RT knee pain Intake Note: Darcy is a 58 year old female who presents today for a new problem visit of right knee pain that began 2 months ago after hitting her right knee with the bathroom sink. Patient states it is painful to walk even with her walker. Patient shares she has had multiple falls since injuring her right knee. She describes the area as sensitive and sore. Patient denies prior injuries or surgeries to the right knee. Allergies aspirin [ASPIRIN] Allergy (Mild, Verified 04/25/24 15:22) GI UPSET ibuprofen [IBUPROFEN] Allergy (Mild, Verified 04/25/24 15:22) GI UPSET Medication List - Last Reconciled 04/25/24 by Aureliano Faulkner PA-C acetaminophen 650 mg (2 x 325 mg) PO Q6H PRN 30 days albuterol sulfate 90 mcg/actuation (ProAir HFA) 2 puffs inhalation Q6H PRN alprazolam (Xanax) 0.5 mg PO QID atorvastatin 40 mg PO BEDTIME baclofen 5 mg PO TID PRN cholecalciferol (vitamin D3) (Vitamin D3) 1 cap PO DAILY cyclobenzaprine 10 mg PO PRN diclofenac sodium 75 mg PO BID PRN docusate sodium 100 mg PO BID 30 days fluticasone propionate 220 mcg/actuation (Flovent HFA) 1 puff inhalation BID gabapentin 600 mg PO TID lamotrigine 200 mg PO BEDTIME lidocaine 5% 1 patch topical DAILY PRN lidocaine-prilocaine 2.5-2.5 % topical lisinopril 10 mg PO BEDTIME omeprazole 1 cap PO DAILY@0630 oxcarbazepine 600 mg PO BEDTIME quetiapine 50 mg PO BEDTIME semaglutide (weight loss) (Wegovy) 1.7 mg subcut QWEEK sumatriptan succinate 50 mg PO DAILY PRN tiotropium bromide (Spiriva with HandiHaler) 1 cap inhalation DAILY varenicline 1 mg PO BID zolpidem 1 tab PO BEDTIME HPI HPI Newprob-RT knee pain: Details: 58-year-old female presents to the office today for right knee pain. She denies specific injury but she states she constantly bumps her knee on things and she has anterior knee pain. [facility] Medical History Poor dentition Neck pain Low back pain Anxiety and depression History of panic attacks Chronic headaches Uses roller walker Nicotine dependence, cigarettes, uncomplicated (~1978) Hyperlipidemia History of TIA (transient ischemic attack) (~2019) Personal history of nicotine dependence (~1978) COPD (chronic obstructive pulmonary disease) Osteoarthritis of left hip Hypertension Surgical History History of appendectomy (~02/13/02) Status post total hip replacement, right (~04/26/13) Social History Household Members: None Housing: Apartment Are you a primary acute care occupational therapist to a significant other at home: No Do you presently have visiting nurse or other home services: No Comment: patient refused bed alarm Patient Tobacco Use Status: Current everyday Tobacco user Tobacco use type: Cigarette Cigarette Packs Per Day: 1 Cigarettes Per Day: 20.0 Years Smoked: 42 Second Hand Smoke Exposure: No Current occupational status: unemployed Current occupation: Right Handed Female Reproductive History Menstrual Age of Menarche: 13 Review of Systems Const All systems reviewed & are unremarkable except as noted in HPI and below Physical Exam Vital Signs: BMI result Body Mass Index 34.2 Extrem Other: Right knee skin intact, no erythema or joint effusion. Anterior patella tenderness. ROM full with crepitus. Negative steinmans. No ligamentous laxity. NVI. Results Reviewed Results Reviewed: X-rays of the right knee obtained in the office today are negative for any acute or chronic abnormalities. Assessment & Plan Assessment & Plan (1) Patellofemoral arthritis of right knee: Code(s): M17.11 - Unilateral primary osteoarthritis, right knee Category: Medical Plan: We discussed options today which included physical therapy and a knee brace. She was fit for a knee brace in the office today. If symptoms persist or worsen she can contact our office to discuss cortisone injection otherwise follow-up as needed. Orders: Orders XR knee RT 3V Today M17.11 - Unilateral primary osteoarthritis, right knee XR knee LT 1V Today M25.562 - Pain in left knee Coding Level of Care Code Est Pt Level 3 (48911) Complex EM visit Add On G2211 Diagnoses Patellofemoral arthritis of right knee M17.11
[2024-04-25 15:23] VITALS: BMI 34.2
== END 2024-04-25 16:03 | disposition home or self-care (01) ==
PROVIDERS: PCP Family Medicine; Visit Provider Physician Assistant
DX: M17.11 Unilateral primary osteoarthritis, right knee (principal)
CPT/HCPCS: 99213

== ENCOUNTER 2024-05-18 15:09 | Outpatient (AMB) | payer MEDICAID, SELFPAY ==
--- NOTE | 2024-05-18 15:10 | MHC.OFFVIS ---
Vital Signs 05/18/24 15:13 Height 5 ft 6 in Weight 197 lb 8 oz BMI 31.9 BP 128/95 H Blood Pressure Location Lt brachial Position Sitting Pulse 90 Pulse Source Pulse Oximeter Intake Visit Reasons: Follow Up Intake Note: Pain today 10/27 Machine Gunner Required: No Accompanied by: Self / Same As Patient Allergies aspirin [ASPIRIN] Allergy (Mild, Verified 05/18/24 15:14) GI UPSET ibuprofen [IBUPROFEN] Allergy (Mild, Verified 05/18/24 15:14) GI UPSET HPI Comments Details: Patient presents back to the office today for follow-up. She has a trial of spinal cord stimulator with bupivacaine and she reported only pain aggravation on this trial. We discussed possibility of further treatment of this patient with spinal cord stimulator Nevro. Patient is reluctant to accept spinal cord stimulation. Patient wants to continue to do trials of intrathecal pain pump. I spoke with the patient about intrathecal medication and her current medication regimen. She is taking significant doses of the Ambien as well as lorazepam. She is taking gabapentin. She is also being prescribed Vicodin. All this combination at this time make her not ideal candidate for opioid pain pump. She asked me to perform non opioid pain pump trials. I offered her clonidine intrathecal trial. She agreed to go for this procedure. She is suffering from postlaminectomy syndrome she has hardware at L5-S1. Possibility exists that she has Modic type changes at the levels above the fusion. I would need to send her for the MRI of the lumbar spine. She had last MRI long time ago. She is claustrophobic and I will schedule her for [facility] appointment. Prior: Darcy is back in my office after diagnostic bilateral sacroiliac joint injection. She reported only 1 hour of more or less pain relief postoperatively this is not significant pain relief to consider sacroiliac joint as a major pain generators. We discussed the possibility of evaluating this patient's pain further. She has a history of postlaminectomy syndrome. She has significant hardware at L5-S1 in the lumbar spine. Possibility exists to treat her condition with Nevro SCS versus intrathecal pain pump. However possibility exists that her pain is coming also from vertebra genic pain syndrome. Unfortunately the MRI report available to me does not comment on any Modic type changes in the lower lumbar vertebra. I requested the patient to obtain the MRI image on the disc from [facility] where she had MRI performed. I also requested her to read brochures about Nevro SCS and I [employer]. Prior: multiple pain generators she reports consistent pain in bilateral shoulder posterior neck bilateral hips bilateral perm paramedian paraspinal areas pain in bilateral groins, pain with standing, pain with sitting down, she reports laying down her pain slightly better prolonged sitting and walking aggravate her pain. . She is walker for ambulation. She had a surgery surgery with Dr. Myrick to help her pain. In the past she had bilateral total hip replacement to help her pain in the hip however she admits that pain is as painful as it was before hip replacement. She had multiple images available including x-ray of the lumbar spine on which L5-S1 fusion is demonstrated without significant pathological changes and with proper hardware position. She also had x-ray of the pelvis which demonstrated appropriate image of the pelvis with bilateral total hip replaced. She had injections long time ago in [facility] as well as with [facility]. In fact she is scheduled for some sort of the injection with [facility] again. This injection will be addressing pain in her neck. The nature of the injection is unknown to me. She is being prescribed by [facility] hydrocodone/acetaminophen 5/325. She is also prescribed cyclobenzaprine to control her pain and help her to sleep at night, she tried NSAIDs with minimal effect including diclofenac sodium. Her primary care physician recommended her to come to this office with the request of spinal cord stimulation. Patient is very leery about spinal cord stimulator and yet she is willing to discuss it with me. Her past medical history significant for headaches mini stroke 4 year ago history of fatigue dizziness and fainting history of anxiety bipolar depression COPD shortness of breath and osteoarthritis. Her past surgical history is significant for to bilateral hip replacements, as well as transforaminal fusion by Dr. Prabhakar. She smokes cigarettes 1 pack per day for 14 years she denies drinking alcohol drinks coffee but not soda and she denies recreational drugs. [facility] Medical History Poor dentition Neck pain Low back pain Anxiety and depression History of panic attacks Chronic headaches Uses roller walker Nicotine dependence, cigarettes, uncomplicated (~1978) Hyperlipidemia History of TIA (transient ischemic attack) (~2019) Personal history of nicotine dependence (~1978) COPD (chronic obstructive pulmonary disease) Osteoarthritis of left hip Hypertension Surgical History History of appendectomy (~02/13/02) Status post total hip replacement, right (~04/26/13) Social History Household Members: None Housing: Apartment Are you a primary customer care coordinator to a significant other at home: No Do you presently have visiting nurse or other home services: No Comment: patient refused bed alarm Patient Tobacco Use Status: Current everyday Tobacco user Tobacco use type: Cigarette Cigarette Packs Per Day: 1 Cigarettes Per Day: 20.0 Years Smoked: 42 Second Hand Smoke Exposure: No Current occupational status: unemployed Current occupation: Right Handed Female Reproductive History Menstrual Age of Menarche: 13 Review of Systems Const All systems reviewed & are unremarkable except as noted in HPI and below ENT Reports Normal hearing present Neuro Reports Normal hearing present, Denies Abnormal speech present, Denies confusion and Denies Sensory deficit (Neuro) Psych Denies confusion Physical Exam Vital Signs: Last Vital Signs Pulse 90 05/18/24 15:13 BP 128/95 H 05/18/24 15:13 BMI result Body Mass Index 31.9 Const General: no acute distress; No confusion Nutritional Appearance: obese morbidly obese Orientation/consciousness: patient oriented x3 and No confusion Eyes General: appearance normal, both eyes and all related structures Pupils: Equal, round and reactive pupils present EOM: EOMs intact bilaterally Neck Neck: Yes full ROM Chest Chest palpation & inspection: normal inspection of the chest Resp Effort & Inspection: normal respiratory effort, able to speak in complete sentences, normal respiratory pattern, no audible wheezes and no cough Cardio Jugular venous distension: no JVD GI Inspection: Yes normal to inspection Back/Spine/Pelvis Other: Able to stand on bilateral tiptoes in bilateral heels without significant difficulty. Unable to flex herself forward or backwards because of severe pain. Attempt to perform Tiago test is demonstrating severe discomfort on lower back bilaterally. Pelvic distraction and pelvic compression tests causing mild discomfort in projection of the sacroiliac joints as well. SLR is positive for pain increase however the Stinchfield test is positive for pain increase those 2 could be confused. The patient is responding very poorly commands to perform the motions and tests. Valsalva maneuver is negative for pain increase. Fourteen finger test is positive bilaterally. Neuro General: patient oriented x3, gait normal and No confusion Cranial nerves: Yes CN's II-XII intact bilaterally, Yes Equal, round and reactive pupils present, Yes Normal hearing present and Yes Ability to bilaterally elevate shoulders present Speech: No Abnormal speech present Gait exam (Neuro): Normal gait present Motor exam (neuro): 5/5 motor strength present throughout Sensory Exam: No Sensory deficit (Neuro) Extrem General: No pedal edema Psych Speech and movement: Normal speech and movement present Affect: normal affect Attitude: cooperative Thought process: Normal thought process present Thought content: Normal thought content present Insight: Good insight present (Psych) Judgement: Good judgement present (Psych) Assessment & Plan Assessment & Plan (1) Chronic pain syndrome: Code(s): G89.4 - Chronic pain syndrome Category: Medical (2) Postlaminectomy syndrome, lumbar: Code(s): M96.1 - Postlaminectomy syndrome, not elsewhere classified Category: Medical Plan Patient is for the follow-up today, she did not go for the follow-up after pain pump trial. Unfortunately today she stated that pain pump trial injection did not alleviate her pain, aggravated her pain. She is on multiple medications including lorazepam Ambien and gabapentin. She also taking Vicodin. Therefore she has poor candidate for opioid pain pump. I offered her pain pump trial with clonidine. I also want to see a fresh MRI of this patient, she is claustrophobic I will schedule her for the MRI at [facility] facility. As a postlaminectomy syndrome patient needs MRI with and without contrast. Orders: Orders MR lumbar spine wo/w con Today G89.4 - Chronic pain syndrome, M96.1 - Postlaminectomy syndrome, not elsewhere classified Patient Instructions: I here by testify that I spent 42 minutes in conversation with this patient as well as evaluating her prior records, prior diagnostic studies, planning her care and organizing this note. Coding Level of Care Code Est Pt Level 5 (99640) Diagnoses Chronic pain syndrome G89.4 Postlaminectomy syndrome, lumbar M96.1
[2024-05-18 15:13] VITALS: BP 128/95; PULSE 90; BMI 31.9
--- OUTSIDE RECORDS SUMMARY | 2024-05-18 17:11 | XMS_ITS | Encounter Summary ---
Author Organization [employer] Address [address] [facility] [place] [address] Care Team Providers Care Granite Cutter Name Role Phone Nicky Thibodeaux MD Primary Care Provider +1- [phone] Wu Manzo MD Unavailable Encounter Details Date Type Department Care Team ([facility] st Contact Info) Description 05/02/2024 Telephone [facility] MEDICINE [address] [place], [place] [phone] Nicky Thibodeaux MD [address] [place], [place] [phone] Social History Tobacco Use Types Packs/Day Years Used Date Smoking Tobacco: Every Day Cigarettes Passive Smoke Exposure: Current Smokeless Tobacco: Never Depression Answer Date Recorded Patient Health Questionnaire-9 Score 14 03/14/2024 Patient Health Questionnaire-9 Score 14 03/14/2024 Last PHQ-9: Questionnaire Data Not on file 1 05/14/2023 Housing Stability Answer Date Recorded What is your housing situation today? I have ruy pizano 11/09/[address] you li ve. Do you have problems with any of the following? None of the above 11/09/2023 Food Insecurity Answer Date Recorded Within the past 12 months, y ou worried that your food would run out before you got money to buy more: Often true 11/09/2023 Within the past 12 months,th e food you bought just didn't last and you didn't have enough money to get more: Often true Transportation Answer Date Recorded In the past 12 months, has l ack of transportation kept you from medical appts, meetings, work or from getting things needed for daily living? No 11/09/2023 Utilities Answer Date Recorded In the past 12 months, has t he electric, gas, oil or water company threatened to shut off services in your home? No 11/09/2023 Depression Answer Date Recorded Patient Health Questionnaire-2 Score 6 03/14/2024 Internet Access Answer Date Recorded Internet Access Q1 Yes 12/21/2023 Internet Access Q2 Not on file 12/21/2023 Comments Unknown Sex and Gender Information Value Date Recorded Sex Assigned at Female 02/17/2022 10:18 AM EDT Legal Sex Female 10:18 AM EDT Gender Identity Female 02/17/2022 10:18 AM EDT Sexual Orientation Straight 02/17/2022 10 :18 AM EDT documented as of this encounter Miscellaneous Notes * Telephone Encounter - Viridiana Zepeda MA - 05/05/2024 10:05 AM EST [facility] Zepbound 5mg/0.5ml pen was approved. I called mom and made her aware of the approval and also called pharmacy and made aware of the approval and sent form toscan. * Telephone Encounter - Clare Weaver - 05/02/2024 3:20 PM EST Per , PA still needed. PA req form for Zepbound generated and sent to provider for review and signature, via [employer]. documented in this encounter Plan of Treatment Not on file documented as of this encounter Visit Diagnoses Not on filedocumented in this encounter Additional Health Concerns Assessment Noted Time PHQ-9 Depression Total Score: 14 024 10:51 AM EST documented as of this encounter Care Teams Granite Cutter Relationship Specialty Start Date End Date Nicky Thibodeaux MD [address] [place] [address] PCP - General Family Medicine 04/20/18 Wu Manzo MD [address] [place], [place] [address] [address] Pain Medicine 03/29/24 Na Orozco Community Music TherapistBusiness Office Technology Instructor 06/25/23 TREASURE [facility] 04/26/24 documented as of this encounter
--- OUTSIDE RECORDS SUMMARY | 2024-05-18 17:11 | XMS_ITS | Encounter Summary ---
Author Organization [employer] Address [address] [facility] [address] 7t [place] [address] Care Team Providers Care Registered Nurse Post Partum Name Role Phone Nicky Thibodeaux MD Primary Care Provider [phone]- [phone] Wu Manzo MD Unavailable Reason for Visit * Reason Comments Med Refill Encounter Details Date Type Department Care Team ([facility] st Contact Info) Description 05/19/2023 Refill [facility] MED[facility]INE [address] [place], [place] [phone] Nicky Thibodeaux MD 230 [place], [place] [phone] Asthma, unspecified asthma severity, unspecified whether complicated, unspecified whether persistent Social History Tobacco Use Types Packs/Day Years Used Date Smoking Tobacco: Every Day Cigarettes Passive Smoke Exposure: Current Smokeless Tobacco: Never Depression Answer Date Recorded Patient Health Questionnaire-9 Score 22 07/30/2022 Housing Stability Answer Date Recorded What is your housing situation today? I have ruy pizano 02/05/[address] you li ve. Do you have problems with any of the following? None of the above 02/05/2023 Food Insecurity Answer Date Recorded Within the past 12 months, y ou worried that your food would run out before you got money to buy more: Never True 02/05/2023 Within the past 12 months,th e food you bought just didn't last and you didn't have enough money to get more: Never True Transportation Answer Date Recorded In the past 12 months, has l ack of transportation kept you from medical appts, meetings, work or from getting things needed for daily living? No 02/05/2023 Utilities Answer Date Recorded In the past 12 months, has t he electric, gas, oil or water company threatened to shut off services in your home? No 02/05/2023 Depression Answer Date Recorded Patient Health Questionnaire-2 Score 6 07/30/2022 Comments Unknown Sex and Gender Information Value Date Recorded Sex Assigned at Female 02/17/2022 10:18 AM EDT Legal Sex Female 10:18 AM EDT Gender Identity Female 02/17/2022 10:18 AM EDT Sexual Orientation Straight 02/17/2022 10 :18 AM EDT documented as of this encounter Plan of Treatment Not on file documented as of this encounter Visit Diagnoses Diagnosis Asthma, unspecified asthma severity, unspecified whether complicated, unspecified whether persistent documented in this encounter Additional Health Concerns Assessment Noted Time PHQ-9 Depression Total Score: 22 023 2:09 PM EDT documented as of this encounter Care Teams Registered Nurse Post Partum Relationship Specialty Start Date End Date Nicky Thibodeaux MD [address] [place] [address] PCP - General Family Medicine 04/20/18 Wu Manzo MD [address] [facility] [address] [place] [address] Pain Medicine 03/29/[address] Engineering TeacherLicensed Massage Therapist 06/25/23 Latia Guardado PA-C [facility] 04/26/24 documented as of this encounter
--- OUTSIDE RECORDS SUMMARY | 2024-05-18 17:11 | XMS_ITS | Encounter Summary ---
Author Organization [employer] Address [address] [place] [address] [address] [place] [address] Care Team Providers Care Platform Architect Name Role Phone Nicky Thibodeaux MD Primary Care Provider +1- [phone] Wu Manzo MD Unavailable Reason for Visit * Reason Comments Med Refill Encounter Details Date Type Department Care Team (Late st Contact Info) Description [address] [facility] [address] [place] [address] Krystin Frederick FNP [address] [place] [address] [place] [address] Chronic migraine without aura without status migrainosus, not intractable Social History Tobacco Use Types Packs/Day Years Used Date Smoking Tobacco: Never Assessed Comments Unknown Sex and Gender Information Value Date Recorded Sex Assigned at Female 02/17/2022 10:18 AM EDT Legal Sex Female 10:18 AM EDT Gender Identity Female 02/17/2022 10:18 AM EDT Sexual Orientation Straight 02/17/2022 10 :18 AM EDT documented as of this encounter Plan of Treatment Not on file documented as of this encounter Visit Diagnoses Diagnosis Chronic migraine without aura without status migrainosus, not intractable documented in this encounter Care Teams Platform Architect Relationship Specialty Start Date End Date Nicky Thibodeaux MD 230 [place] [address] PCP - General Family Medicine 04/20/[address] [place] [address] Pain Medicine 03/29/24 Na Orozco Steam Table AttendantRegional Operations Manager 06/25/23 TREASURE [facility] 04/26/24 documented as of this encounter
--- OUTSIDE RECORDS SUMMARY | 2024-05-18 17:11 | XMS_ITS | Encounter Summary ---
Author Organization [employer] Address [address] 7[address] [place] [address] Care Team Providers Care Irrigation Manager Name Role Phone Nicky Thibodeaux MD Primary Care Provider +1- [phone] Wu Manzo MD Unavailable Reason for Visit * Reason Comments Med Refill Encounter Details Date Type Department Care Team ([facility] st Contact Info) Description 04/09/2023 Refill [facility] [address] [place] [address] Nicky Thibodeaux MD [address] [place] [address] Pain Social History Tobacco Use Types Packs/Day Years [...] as of this encounter Visit Diagnoses Diagnosis Pain Generalized pain documented in this encounter Additional Health Concerns Assessment Noted Time PHQ-9 Depression Total Score: 22 023 2:09 PM EDT documented as of this encounter Care Teams Irrigation Manager Relationship Specialty Start Date End Date Nicky Thibodeaux MD [address] [place] [address] PCP - General Family Medicine 04/20/18 Wu Manzo MD [address] [place] [address] Drive [address] [place] [address] Pain Medicine 03/29/24 Na Orozco Buyer GrainVisual Display Associate 06/25/23 Latia Guardado PA-C [facility] 04/26/24 documented as of this encounter
--- OUTSIDE RECORDS SUMMARY | 2024-05-18 17:11 | XMS_ITS | Encounter Summary ---
Author Organization [employer] Address [address] [facility] 7t [place] [address] Care Team Providers Care Milk Vendor Name Role Phone Nicky Thibodeaux MD Primary Care Provider +1- [phone] Wu Manzo MD Unavailable Encounter Details Date Type Department Care Team ([facility] st Contact Info) Description 08/12/2022 Orders Only [facility] 230 [place], [place] [phone] Nicky Thibodeaux MD [address] [place], [place] [phone] Social History Tobacco Use Types Packs/Day Years Used Date Smoking Tobacco: Every Day Cigarettes Passive Smoke Exposure: Current Smokeless Tobacco: Never Depression Answer Date Recorded Patient Health Questionnaire-9 Score 22 07/30/2022 Depression Answer Date Recorded Patient Health Questionnaire-2 Score 6 07/30/2022 Comments Unknown Sex and Gender Information Value Date Recorded Sex Assigned at Female 02/17/2022 10:18 AM EDT Legal Sex Female 10:18 AM EDT Gender Identity Female 02/17/2022 10:18 AM EDT Sexual Orientation Straight 02/17/2022 10 :18 AM EDT COVID-19 Exposure Response Date Recorded In the last 10 days, have yo u been in contact with someone who was confirmed or suspected to have Coronavirus/COVID-19? No / Unsure 07/30/2022 1:50 PM EDT documented as of this encounter Plan of Treatment Not on file documented as of this encounter Visit Diagnoses Not on filedocumented in this encounter Additional Health Concerns Assessment Noted Time PHQ-9 Depression Total Score: 22 023 2:09 PM EDT documented as of this encounter Care Teams Milk Vendor Relationship Specialty Start Date End Date Nicky Thibodeaux MD [address] [place] [address] PCP - General Family Medicine 04/20/18 Wu Manzo MD [address] [place] [address] [address] [place] [address] Pain Medicine 03/29/24 Na Orozco Intern BrandSunglass Clip Attacher 06/25/23 Latia Guardado PA-C [facility] 04/26/24 documented as of this encounter
--- OUTSIDE RECORDS SUMMARY | 2024-05-18 17:11 | XMS_ITS | Encounter Summary ---
Author Organization [employer] Address [address] [facility] [address] [place] [address] Care Team Providers Care Disposal Worker Name Role Phone Nicky Thibodeaux MD Primary Care Provider +1- [phone] Wu Manzo MD Unavailable Encounter Details Date Type Department Care Team ([facility] st Contact Info) Description 03/11/2023 Abstract [facility]INE [address] [place], [place] [phone] Thuy Valenzuela Social History Tobacco Use Types Packs/Day Years [...] documented as of this encounter Care Teams Disposal Worker Relationship Specialty Start Date End Date Nicky Thibodeaux MD [address] [place] [address] PCP - General Family Medicine 04/20/18 Wu Manzo MD [address] [facility] [address] [place] [address] Pain Medicine 03/29/24 Na Orozco Electrical Design EngineerDictaphone Mechanic 06/25/23 Latia Guardado PA-C [facility] 04/26/24 documented as of this encounter
--- OUTSIDE RECORDS SUMMARY | 2024-05-18 17:11 | XMS_ITS | Encounter Summary ---
Author Organization [employer] Address 75 [facility] 7t [place] [address] Care Team Providers Care Hand Profiler Name Role Phone Nicky Thibodeaux MD Primary Care Provider +1- [phone] Wu Manzo MD Unavailable Reason for Visit * Reason Onset Date Comments FYI 08/14/2022 Encounter Details Date Type Department Care Team ([facility] st Contact Info) Description 08/14/2022 Telephone [facility] MEDICINE 230 [place], [place] [phone] Nicky Thibodeaux MD 230 [place], [place] [phone] FYI Social History Tobacco Use Types Packs/Day Years [...] suspected to have Coronavirus/COVID-19? No / Unsure 10/16/2022 12:50 PM EDT documented as of this encounter Miscellaneous Notes * Telephone Encounter - Pierce Templeton - 08/14/2022 2:25 PM EDT Tc from [facility] would like to inform PCP that as of today 08/14/22 pt willbe discharged from their services. Advised will leave message as a FYI if any questions or concern please contact at [phone] documented in this encounter Plan of Treatment Not on file documented as of this encounter Visit Diagnoses Not on filedocumented in this encounter Additional Health Concerns Assessment Noted Time PHQ-9 Depression Total Score: 22 023 2:09 PM EDT documented as of this encounter Care Teams Hand Profiler Relationship Specialty Start Date End Date Nicky Thibodeaux MD [address] [place] [address] PCP - General Family Medicine 04/20/18 Wu Manzo MD [address] [place] [address] [address] [place] [address] Pain Medicine 03/29/24 Na Orozco Monorail Crane OperatorAble Seaman 06/25/23 TREASURE [facility] 04/26/24 documented as of this encounter
--- OUTSIDE RECORDS SUMMARY | 2024-05-18 17:11 | XMS_ITS | Encounter Summary ---
Author Organization [employer] Address 75 [facility] 7t [place] [address] Care Team Providers Care Chemistry Quality Control Analyst Name Role Phone Nicky Thibodeaux MD Primary Care Provider +1- [phone] Wu Manzo MD Unavailable Reason for Visit * Reason Onset Date Comments Medication Question 12/11/2022 Encounter Details Date Type Department Care Team ([facility] st Contact Info) Description 12/11/2022 Telephone [facility] MEDICINE 230 [place] [address] Chelsi Canseco, ANP 230 [place] [address] Medication Question Social History Tobacco Use Types Packs/Day Years [...] encounter Miscellaneous Notes * Telephone Encounter - Nagi Galloway - 12/24/2022 3:21 PM EDT Tc from pt requesting Nicotine patches , states discussed with PCP in last visit. documented in this encounter Plan of Treatment Not on file documented as of this encounter Visit Diagnoses Diagnosis Essential (primary) hypertension Unspecified essential hypertension documented in this encounter Additional Health Concerns Assessment Noted Time PHQ-9 Depression Total Score: 22 023 2:09 PM EDT documented as of this encounter Care Teams Chemistry Quality Control Analyst Relationship Specialty Start Date End Date Nicky Thibodeaux MD [address] [place] [address] PCP - General Family Medicine 04/20/18 Wu Manzo MD [address] [place] [address] [place] [address] Pain Medicine 03/29/24 Na Orozco Title ExaminerRepairer Evaporator 06/25/23 TREASURE [facility] 04/26/24 documented as of this encounter
--- OUTSIDE RECORDS SUMMARY | 2024-05-18 17:11 | XMS_ITS | Encounter Summary ---
Author Organization [employer] Address [address] [facility] [address] 7t [place] [address] Care Team Providers Care Electric Welder Name Role Phone Nicky Thibodeaux MD Primary Care Provider +1- [phone] Wu Manzo MD Unavailable Reason for Visit * Reason Onset Date Comments Med Refill 04/29/2023 Encounter Details Date Type Department Care Team ([facility] st Contact Info) Description 04/29/2023 Telephone [facility] MEDICINE 230 [place], [place] [phone] Nicky Thibodeaux MD 230 [place], [place] [phone] Med Refill Social History Tobacco Use Types Packs/Day Years [...] encounter Miscellaneous Notes * Telephone Encounter - Jessica Moore LPN - 04/29/2023 3:58 PM EST Medication pended to PCP. * Telephone Encounter - Wellington Smith - 04/29/2023 3:56 PM EST TC from pt requesting medication refill. Medications needing refill : lidocaine (Lidoderm) 5 % patch Acetaminophen Extra Strength 500 MG tablet To be sent to: [facility]/pharmacy #[id number] [place], [place] - [address] [place] [address] documented in this encounter Plan of Treatment Not on file documented as of this encounter Visit Diagnoses Not on filedocumented in this encounter Additional Health Concerns Assessment Noted Time PHQ-9 Depression Total Score: 22 023 2:09 PM EDT documented as of this encounter Care Teams Electric Welder Relationship Specialty Start Date End Date Nicky Thibodeaux MD [address] [place] [address] PCP - General Family Medicine 04/20/18 Wu Manzo MD [address] [place] [address] Drive [address] [place] [address] Pain Medicine 03/29/24 Na Orozco Tooth Cutter ClutchWater Softener Servicer 06/25/23 TREASURE [facility] 04/26/24 documented as of this encounter
--- OUTSIDE RECORDS SUMMARY | 2024-05-18 17:11 | XMS_ITS | Encounter Summary ---
Author Organization [employer] Address [address] [facility] [address] 7t [place] [address] Care Team Providers Care Freight Brakeman Name Role Phone Nicky Thibodeaux MD Primary Care Provider +1- [phone] Wu Manzo MD Unavailable Reason for Visit * Reason Onset Date Comments PT-1 12/08/2023 Encounter Details Date Type Department Care Team ([facility] Contact Info) Description 12/08/2023 Telephone [facility] MEDICINE 230 [place], [place] [phone] Nicky Thibodeaux MD 230 [place], [place] [phone] PT-1 Social History Tobacco Use Types Packs/Day Years [...] encounter Miscellaneous Notes * Telephone Encounter - Nasir Carpio - 12/08/2023 11:18 AM EDT Patient calling requesting PT1 Home Address verified: Y/N: Yes Provider name or facility name: [facility] pain management Facility Address: [address] [place] [address] Escort needed: Y/N: No Do you have a wheelchair: Y/N: No If yes- Manual or electric: N/A (uses walker) Visits: twice a month documented in this encounter Plan of Treatment Not on file documented as of this encounter Visit Diagnoses Not on filedocumented in this encounter Additional Health Concerns Assessment Noted Time PHQ-9 Depression Total Score: 22 023 2:09 PM EDT documented as of this encounter Care Teams Freight Brakeman Relationship Specialty Start Date End Date Nicky Thibodeaux MD [address] [place] [address] PCP - General Family Medicine 04/20/18 Wu Manzo MD 10 [facility] [address] [place] [address] Pain Medicine 03/29/24 Na Orozco Inspector Balance BridgeFarmer Tree Fruit And Nut Crops 06/25/23 Latia Guardado PA-C [facility] 04/26/24 documented as of this encounter
--- OUTSIDE RECORDS SUMMARY | 2024-05-18 17:11 | XMS_ITS | Encounter Summary ---
Author Organization [employer] Address 75 [facility] 7t [place] [address] Care Team Providers Care Director Diversity Name Role Phone Nicky Thibodeaux MD Primary Care Provider +1- [phone] Wu Manzo MD Unavailable Reason for Visit * Reason Onset Date Comments Durable Medical Equipment 08/07/2022 Encounter Details Date Type Department Care Team ([facility] st Contact Info) Description 08/07/2022 Telephone [facility] MEDICINE 230 [place], [place] [phone] Nicky Thibodeaux MD 230 [place], [place] [phone] Durable Medical Equipment Social History Tobacco Use Types Packs/Day Years [...] encounter Miscellaneous Notes * Telephone Encounter - Selam Macias - 08/20/2022 12:51 PM EDT Form already signed and faxed back * Telephone Encounter - Armin Lyle - 08/14/2022 9:23 AM EDT Tc from [facility] requesting status on a form send over for [facility]. Please contact Renzo at [phone] * Telephone Encounter - Wellington Smith - 08/07/2022 9:57 AM EDT Tc from [facility] with [facility] requesting a status on a form sent over for a [facility] Grab bar. Please contact renzo at [phone] documented in this encounter Plan of Treatment Not on file documented as of this encounter Visit Diagnoses Not on filedocumented in this encounter Additional Health Concerns Assessment Noted Time PHQ-9 Depression Total Score: 22 023 2:09 PM EDT documented as of this encounter Care Teams Director Diversity Relationship Specialty Start Date End Date Nicky Thibodeaux MD [address] [place] [address] PCP - General Family Medicine 04/20/18 Wu Manzo MD [address] [place] [address] [place] [address] Pain Medicine 03/29/24 Na Orozco Research Animal AttendantRailroad Dispatcher 06/25/23 Latia Guardado PA-C [facility] 04/26/24 documented as of this encounter
--- OUTSIDE RECORDS SUMMARY | 2024-05-18 17:11 | XMS_ITS | Encounter Summary ---
Author Organization [employer] Address 75 [facility] 7t [place] [address] Care Team Providers Care Wildlife Ecology Professor Name Role Phone Nicky Thibodeaux MD Primary Care Provider +1- [phone] Wu Manzo MD Unavailable Reason for Visit * Reason Onset Date Comments Pre-visit Planning 11/09/2023 Encounter Details Date Type Department [facility] Description 11/09/2023 Telephone [facility] MEDICINE 230 [place] [address] Nicky Thibodeaux MD 230 [place], [place] [phone] Pre-visit Planning Social History Tobacco Use Types Packs/Day Years [...] encounter Miscellaneous Notes * Telephone Encounter - Basil Noble - 11/09/2023 3:49 PM EDT Tc from patient returning call to complete the pre-visit planning documented in this encounter Plan of Treatment Not on file documented as of this encounter Visit Diagnoses Not on filedocumented in this encounter Additional Health Concerns Assessment Noted Time PHQ-9 Depression Total Score: 22 023 2:09 PM EDT documented as of this encounter Care Teams Wildlife Ecology Professor Relationship Specialty Start Date End Date Nicky Thibodeaux MD [address] [place] [address] PCP - General Family Medicine 04/20/18 Wu Manzo MD [address] [place] [address] Drive [address] [place] [address] Pain Medicine 03/29/24 Na Orozco Specialist PhysicianGreen Material Value Added Assessor 06/25/23 Latia Guardado PA-C [facility] 04/26/24 documented as of this encounter
--- OUTSIDE RECORDS SUMMARY | 2024-05-18 17:11 | XMS_ITS | Encounter Summary ---
Author Organization [employer] Address [address] [facility] [address] 7t [place] [address] Care Team Providers Care Poultry Hanger Name Role Phone Nicky Thibodeaux MD Primary Care Provider +1- [phone] Wu Manzo MD Unavailable Reason for Visit * Reason Comments Med Refill Encounter Details Date Type Department Care Team ([facility] st Contact Info) Description 04/29/[address] [facility] MEDICINE 230 [place] [address] Chelsi Canseco, ANP 230 [place], [place] [phone] Social History Tobacco Use Types Packs/Day Years [...] documented as of this encounter Care Teams Poultry Hanger Relationship Specialty Start Date End Date Nicky Thibodeaux MD [address] [place] [address] PCP - General Family Medicine 04/20/18 Wu Manzo MD [address] [place] [address] [address] [place] [address] Pain Medicine 03/29/24 Na Orozco Youth DirectorBath Mix Operator 06/25/23 Latia Guardado PA-C [facility] 04/26/24 documented as of this encounter
--- OUTSIDE RECORDS SUMMARY | 2024-05-18 17:11 | XMS_ITS | Encounter Summary ---
Author Organization [employer] Address [address] [facility] [address] 7t [place] [address] Care Team Providers Care Marine Structural Designer Name Role Phone Nicky Thibodeaux MD Primary Care Provider +1- [phone] Wu Manzo MD Unavailable Reason for Visit * Reason Onset Date Comments Nurse Triage 05/11/2024 Encounter Details Date Type Department Care Team ([facility] st Contact Info) Description 05/11/2024 Telephone [facility] MEDICINE 230 [place], [place] [phone] Nicky Thibodeaux MD 230 [place], [place] [phone] Nurse Triage Social History Tobacco Use Types Packs/Day Years [...] encounter Miscellaneous Notes * Telephone Encounter - Guerline Jenkins RN - 05/11/2024 11:54 AM EST Call returned to Darcy Medina to triage below. Reports having intermittent dizziness x 1 month.Pt reports last episode of dizziness yesterday lasting about 20 minutes. Per pt reports occurs withposition and at rest. Denies spinning of room. No ear pain. Pt reports having chronic STOKES. Denies any palpitations or SOB. Pt not having dizziness today. Pt offerd sick on site for Tomorrow or Thursday.Pt wants appt on Thursday when [facility] is available to bring pt. Reviewed [facility] operating hours and that wait times vary. Unable to book sick on site > 48 hours. Pt advised can call back on Thursday for Thursday scheduled. Reviewed home care advise, ER precautions and reasons to call back. Protocol Used: Dizziness (Adult) Protocol-Based Disposition: Discuss with PCP and Callback by Nurse Today Sent to PCP and [place] team Primary care nurses for follow up PRN for any other recommendations Positive Triage Question: * Taking a medicine that could cause dizziness (e.g., blood pressure medications, diuretics) * All higher-acuity triage questions were negative Care Advice Discussed: * Reassurance and Education - Dizziness From Standing * Sit Up Slowly Before Standing * Drink Fluids * Cool Off * Reasons To Call Back - After 2 hours of rest and fluids and you are still feeling dizzy - You pass out (faint) or are too weak to stand - You become worse * Telephone Encounter - Chandler Don - 05/11/2024 11:42 AM EST Symptom: Dizziness Outcome: Talk to a nurse or provider within 15 minutes Reason: Trouble walking The caller accepted this outcome. documented in this encounter Plan of Treatment Not on file documented as of this encounter Visit Diagnoses Not on filedocumented in this encounter Additional Health Concerns Assessment Noted Time PHQ-9 Depression Total Score: 14 024 10:51 AM EST documented as of this encounter Care Teams Marine Structural Designer Relationship Specialty Start Date End Date Nicky Thibodeaux MD [address] [place] [address] PCP - General Family Medicine 04/20/18 Wu Manzo MD [address] [place] [address] Drive [address] [place] [address] Pain Medicine 03/29/24 Na Orozco Real Estate Job TitlesCumulative Effects Analyst 06/25/23 Latia Guardado PA-C [facility] 04/26/24 documented as of this encounter
--- OUTSIDE RECORDS SUMMARY | 2024-05-18 17:11 | XMS_ITS | Encounter Summary ---
Author Organization [employer] Address [address] [facility] [address] 7t [place] [address] Care Team Providers Care Minister Name Role Phone Nicky Thibodeaux MD Primary Care Provider +1- [phone] Wu Manzo MD Unavailable Reason for Visit * Reason Onset Date Comments PA 10/12/2023 Encounter Details Date Type Department Care Team ([facility] st Contact Info) Description 10/12/2023 Telephone [facility] MEDICINE 230 [place], [place] [phone] Nicky Thibodeaux MD 230 [place], [place] [phone] PA Social History Tobacco Use Types Packs/Day Years [...] encounter Miscellaneous Notes * Telephone Encounter - Martha Quinn - 10/12/2023 10:09 AM EDT Tc from pt calling to inform PA is needed for medication Semaglutide-Weight Management (Wegovy) 0.25 MG/0.5ML solution auto-injector . documented in this encounter Plan of Treatment Not on file documented as of this encounter Visit Diagnoses Not on filedocumented in this encounter Additional Health Concerns Assessment Noted Time PHQ-9 Depression Total Score: 22 023 2:09 PM EDT documented as of this encounter Care Teams Minister Relationship Specialty Start Date End Date Nicky Thibodeaux MD [address] [place] [address] PCP - General Family Medicine 04/20/18 Wu Manzo MD [address] [place] [address] [address] [place] [address] Pain Medicine 03/29/24 Na Orozco Heel SprayerTin Can Laborer 06/25/23 Latia Guardado PA-C [facility] 04/26/24 documented as of this encounter
--- OUTSIDE RECORDS SUMMARY | 2024-05-18 17:11 | XMS_ITS | Clinical Summary ---
Author Organization [facility] Address [address] [place] [address] Care Team Providers Care Excavating Supervisor Name Role Phone Nicky Thibodeaux MD Primary Care Provider +1- [phone] Social History Tobacco Use Types Packs/Day Years Used Date Smoking Tobacco: Never Assessed Sex and Gender Information Value Date Recorded Sex Assigned at Not on file Gender Identity Not on file Sexual Orientation Not on file Last Filed Vital Signs Vital Sign Reading Time Taken Comments Blood Pressure - - Pulse - - Temperature - - Respiratory Rate - - Oxygen Saturation - - Inhaled Oxygen Concentration - - Weight 102 kg (225 lb) 07/08/2022 2:25 PM EDT Height 167.6 cm (5' 6 ) 07/08/2022 2:25 PM EDT Body Mass Index 36.32 07/08/2022 2:25 PM EDT Plan of Treatment Health Maintenance Due Date Last Done Comments Breast Cancer Screening 1965 DTaP,Tdap,and Td Vaccines (1 - Tdap) 1984 Hepatitis B Vaccines (1 of 3 - 19+ 3-dose series) 1984 Cervical Cancer Screening: P ap Smear 1986 Zoster Vaccines (1 of 2) 07/21/2015 Colorectal Cancer Screening: Colonoscopy 03/30/2022 Depression Screening 03/30/2022 HIV Screening 03/30/2022 Hepatitis C Screening 03/30/2022 Social Influencers of Health Screening 03/30/2022 COVID-19 Vaccine ( - 2023-2 5 season) 2023 Influenza Vaccine (#1) 2023 HIB Vaccines Aged Out No longer eligi ble based on patient's age to complete this topic HPV Vaccines Aged Out No longer eligi ble based on patient's age to complete this topic Hepatitis A Vaccines Aged Out No long er eligible based on patient's age to complete this topic IPV Vaccines Aged Out No longer eligi ble based on patient's age to complete this topic MMR Vaccines Aged Out No longer eligi ble based on patient's age to complete this topic Meningococcal ACWY Vaccine Aged Out N o longer eligible based on patient's age to complete this topic Pneumococcal Vaccine: Pediat rics (0 to 5 Years) and At-Risk Patients (6 to 64 Years) Aged Out No longer eligible b ased on patient's age to complete this topic RSV Immunization Patients Un paresh 20 months Aged Out No longer eligible b ased on patient's age to complete this topic Varicella Vaccines Aged Out No longer eligible based on patient's age to complete this topic Care Teams Excavating Supervisor Relationship Specialty Start Date End Date Nicky Thibodeaux MD [address] [place] [phone] PCP - General Internal Medicine 12/21/13
--- OUTSIDE RECORDS SUMMARY | 2024-05-18 17:11 | XMS_ITS | Encounter Summary ---
Author Organization [employer] Address [address] [facility] [address] 7t [place] [address] Care Team Providers Care Docket Clerk Name Role Phone Nicky Thibodeaux MD Primary Care Provider +1- [phone] Wu Manzo MD Unavailable Reason for Visit * Reason Onset Date Comments Referral 04/18/2024 Encounter Details Date Type Department Care Team ([facility] st Contact Info) Description 04/18/2024 Telephone [facility] MEDICINE 230 [place], [place] [phone] Nicky Thibodeaux MD 230 [place], [place] [phone] Referral Social History Tobacco Use Types Packs/Day Years [...] encounter Miscellaneous Notes * Telephone Encounter - Paige Matos RN - 04/21/2024 2:55 PM EST [facility]. The pt will be having this done twice a week for four weeks and once a week for the last two weeks. * Telephone Encounter - Paige Matos RN - 04/21/2024 1:24 PM EST TC placed to Shannan with [facility] and LVM to call back the office * Telephone Encounter - Johanna Jackosn - 04/18/2024 3:49 PM EST [facility] Visiting documents. If any questions contact Shannan documented in this encounter Plan of Treatment Not on file documented as of this encounter Visit Diagnoses Not on filedocumented in this encounter Additional Health Concerns Assessment Noted Time PHQ-9 Depression Total Score: 14 024 10:51 AM EST documented as of this encounter Care Teams Docket Clerk Relationship Specialty Start Date End Date Nicky Thibodaeux MD 230 [place] [address] PCP - General Family Medicine 04/20/18 Wu Manzo MD [address] [place] [address] [place] [address] Pain Medicine 03/29/24 Na Orozco Box Office AgentFund Accounting Manager 06/25/23 documented as of this encounter
--- OUTSIDE RECORDS SUMMARY | 2024-05-18 17:11 | XMS_ITS | Encounter Summary ---
Author Organization [employer] Address [address] [place] [address] 7t [place] [address] Care Team Providers Care Marketing Research Intern Name Role Phone Nicky Thibodeaux MD Primary Care Provider +1- [phone] Wu Manzo MD Unavailable Encounter Details Date Type Department Care Team (Latest Contact Info) Description 04/05/2021 [facility] Dental, Provider, DDS Social History Tobacco Use Types Packs/Day Years [...] Diagnoses Not on filedocumented in this encounter Care Teams Marketing Research Intern Relationship Specialty Start Date End Date Nicky Thibodeaux MD [address] [place] [address] PCP - General Family Medicine 04/20/18 Wu Manzo MD [address] [place] [address] Pain Medicine 03/29/24 Na Orozco Cotton Candy MakerDisk Sharpener 06/25/23 Latia Guardado PA-C [facility] 04/26/24 documented as of this encounter
--- OUTSIDE RECORDS SUMMARY | 2024-05-18 17:11 | XMS_ITS | Encounter Summary ---
Author Organization [employer] Address [address] [facility] 7t [place] [address] Care Team Providers Care Television Journalist Name Role Phone Nicky Thibodeaux MD Primary Care Provider +1- [phone] Wu Manzo MD Unavailable Encounter Details Date Type Department Care Team (Late st Contact Info) Description 05/05/2022 Abstract [facility] [address] [place], [place] [phone] Nicky Thibodeaux MD [address] [place], [place] [phone] Social History Tobacco Use Types Packs/Day Years [...] on file documented as of this encounter Procedures Procedure Name Priority Date/Time Associated Diagnosis Comments COLPOSCOPY Routine 09/11/2021 12:00 AM EDT PAP SMEAR Routine 08/02/2021 12:00 AM EDT MAMMOGRAPHY Routine 10/29/2020 COLONOSCOPY Routine 12/11/2015 documented in this encounter Results * Colposcopy (09/11/2021 12:00 AM EDT) us Historical Provider IN CLINIC/BEDSIDE ORDERAB LES Final Result [facility] [address] [place] [address] [phone] * Pap Smear (08/02/2021 12:00 AM EDT) Swab Nicky Thibodeaux MD LAB CYTOLOGY ORDERABLES Fi nal Result Performing Organization Address City/[facility] Co de Phone Number [facility] [address] [place] [address] [phone] * Mammography (10/29/2020) Mammogram BIRADS 2 Anatomical Region Laterality Modality Other Historical Provider HEALTH MAINTENANCE Final Result * Hm Colonoscopy (12/11/2015) Colonoscopy normal with Dr. Delgado Historical Provider HEALTH MAINTENANCE Final Result documented in this encounter Visit Diagnoses Not on filedocumented in this encounter Care Teams Television Journalist Relationship Specialty Start Date End Date Nicky Thibodeaux MD [address] [place] [phone] PCP - General Family Medicine 04/20/18 Wu Manzo MD [address] [place] [address] Pain Medicine 03/29/24 Na Orozco Software Test And Validation EngineerMaster At Arms 06/25/23 Latia Guardado PA-C [facility] 04/26/24 documented as of this encounter
--- OUTSIDE RECORDS SUMMARY | 2024-05-18 17:11 | XMS_ITS | Encounter Summary ---
Author Organization [email or web address] Address 75 [facility] 7t [place] [address] Care Team Providers Care Impregnating Machine Operator Name Role Phone Nicky Thibodeaux MD Primary Care Provider +1- [phone] Wu Manzo MD Unavailable Reason for Visit * Reason Comments Med Refill Encounter Details Date Type Department Care Team (Late st Contact Info) Description 12/11/2022 Refill [facility] [address] [place] [address] [phone] Nicky Thibodeaux MD [address] [place] [address] [phone] Social History Tobacco Use Types Packs/Day Years [...] documented as of this encounter Care Teams Impregnating Machine Operator Relationship Specialty Start Date End Date Nicky Thibodeaux MD [address] [place] [phone] PCP - General Family Medicine 04/20/18 Wu Manzo MD [address] [place] [address] Pain Medicine 03/29/24 Na Orozco Emergency DoctorHydroelectric Production Technician 06/25/23 TREASURE [facility] 04/26/24 documented as of this encounter
--- OUTSIDE RECORDS SUMMARY | 2024-05-18 17:11 | XMS_ITS | Encounter Summary ---
Author Organization [employer] Address [address] [facility] [address] 7[address] [place] [address] Care Team Providers Care Ring Making Machine Operator Name Role Phone Nicky Thibodeaux MD Primary Care Provider +1- [phone] Wu Manzo MD Unavailable Reason for Visit * Reason Comments Med Refill Encounter Details Date Type Department Care Team (Late st Contact Info) Description 05/16/2024 Refill [facility] [address] [place] [address] Nicky Thibodeaux MD [address] [place] [address] Osteoarthritis of hip, unspecified laterality, unspecified osteoarthritis type Social History Tobacco Use Types Packs/Day Years [...] as of this encounter Visit Diagnoses Diagnosis Osteoarthritis of hip, unspecified laterality, unspecified osteoarthritis type documented in this encounter Additional Health Concerns Assessment Noted Time PHQ-9 Depression Total Score: 14 024 10:51 AM EST documented as of this encounter Care Teams Ring Making Machine Operator Relationship Specialty Start Date End Date Nicky Thibodeaux MD [address] [place] [address] PCP - General Family Medicine 04/20/18 Wu Manzo MD [address] [facility] [address] [place] [address] Pain Medicine 03/29/24 Na Orozco Vice President Supply ChainCorrectional Officer Lieutenant 06/25/23 TREASURE [facility] 04/26/24 documented as of this encounter
--- OUTSIDE RECORDS SUMMARY | 2024-05-18 17:11 | XMS_ITS | Encounter Summary ---
Author Organization [employer] Address 75 [facility] 7t [place] [address] Care Team Providers Care Radio Television Announcer Name Role Phone Nicky Thibodeaux MD Primary Care Provider +1- [phone] Wu Manzo MD Unavailable Encounter Details Date Type Department Care Team (Late st Contact Info) Description 05/22/2022 Orders Only [facility] [address] [place], [place] [phone] Nereida Horner LPN Social History Tobacco Use Types Packs/Day Years [...] on filedocumented in this encounter Care Teams Radio Television Announcer Relationship Specialty Start Date End Date Nicky Thibodeaux MD [address] [place] [address] PCP - General Family Medicine 04/20/18 Wu Manzo MD [address] [facility] [address] [place] [address] Pain Medicine 03/29/24 Na Orozco Folding Machine TenderSupervisor Fish Hatchery 06/25/23 Latia Guardado PA-C [facility] 04/26/24 documented as of this encounter
--- OUTSIDE RECORDS SUMMARY | 2024-05-18 17:11 | XMS_ITS | Encounter Summary ---
Author Organization [employer] Address [address] [facility] [address] [place] [address] Care Team Providers Care Digital Media Producer Name Role Phone Nicky Thibodeaux MD Primary Care Provider +1- [phone] Wu Manzo MD Unavailable Reason for Visit * Reason Comments Med Refill Encounter Details Date Type Department Care Team (Late st Contact Info) Description 08/26/2022 Refill [facility] [address] [place], [place] [phone] Nicky Thibodeaux MD [address] [place] [phone] Pain Social History Tobacco Use Types Packs/Day [...] documented as of this encounter Care Teams Digital Media Producer Relationship Specialty Start Date End Date Nicky Thibodeaux MD [address] [place] [address] PCP - General Family Medicine 04/20/18 Wu aMnzo MD [address] [place] [address] Drive [address] [place] [address] Pain Medicine 03/29/24 Na Orozco Breakfast CookAsphalt Still Operator 06/25/23 Latia Guardado PA-C [facility] 04/26/24 documented as of this encounter
--- OUTSIDE RECORDS SUMMARY | 2024-05-18 17:11 | XMS_ITS | Clinical Summary ---
Author Organization [employer] Address [address] [place] [address] Care Team Providers Care Sfdc Architect Name Role Phone Nicky Thibodeaux MD Primary Care Provider [phone] Wu Manzo MD Unavailable Allergies Active Allergy Reactions Criticality Noted Date Comments Aspirin 01/03/2013 Ibuprofen 12/29/2014 Medications QUEtiapine (SEROquel) 50 MG tablet Take 1-2 tablets by mouth if needed at bedtime for sleep. Taking 1 tablet 3 times daily 023 Active lamoTRIgine (LaMICtal) 200 MG tablet Take 1 tablet by mouth 2 times daily. 023 Active gabapentin (Neurontin) 600 MG tablet Take 0.5-1 tablets by mouth 3 times daily. 023 Active fluticasone (Flovent) 220 MCG/ACT inhaler Inhale. Using PRN 022 Active ALPRAZolam (Xanax) 0.5 MG tablet Take 0.5 mg by mouth if needed in the morning, at noon, and at bedtime. 023 Active OXcarbazepine (Trileptal) 600 MG tablet Take 1 tablet by mouth 2 times daily. Active HYDROcodone-aceta minophen (Schlater) 5-325 MG tablet Take 1 tablet by mouth 3 times daily. 023 Active zolpidem (Ambien) 10 MG tablet Take 1 tablet by mouth if needed at bedtime. 023 Active Senna-Time 8.6 MG tablet TAKE 1 TABLET BY ORAL ROUTE EVERY DAY NEEDED FOR CONSTIPATION NEEDED 90 tablet 3 023 Active Spiriva HandiHaler 18 MCG inhalation capsuleIndication s:Chronic obstructive pulmonary disease, unspecified COPD type (CMS/HCC) INHALE 1 CAPSULE VIA HANDIHALER ONCE DAILY AT THE SAME TIME EVERY DAY 30 capsule 11 023 Active lidocaine (Lidoderm) 5 % patchIndications: Pain APPLY 1 PATCH EVERY DAY MAY WEAR UP TO 12 HOURS 30 patch 11 024 Active Ventolin HFA 108 (90 Base) MCG/ACT inhalerIndication s:Asthma, unspecified asthma severity, unspecified whether complicated, unspecified whether persistent TAKE 2 PUFFS BY MOUTH EVERY 4 TO 6 HOURS NEEDED 18 g 024 Active atorvastatin (Lipitor) 40 MG tablet Take 1 tablet (40 mg) by mouth at bedtime. 90 tablet 3 024 Active cyanocobalamin (Vitamin B-12) 100 MCG tablet Take 100 mcg by mouth Once per day. Active Multiple Vitamins-Minerals (Multivitamin Adults 50+) tablet 1 tablet daily Activ e fluticasone furoate (Arnuity Ellipta) 100 MCG/ACT inhalerIndication s:Chronic obstructive pulmonary disease, unspecified COPD type (CMS/HCC) Inhale 1 puff Once per day. Rinse mouth with water after use to reduce aftertaste and incidence of candidiasis. Do not swallow. 1 each 024 Active cyclobenzaprine (Flexeril) 10 MG tabletIndications :Pain TAKE 1 TABLET BY MOUTH UP TO 3 TIMES DAILY NEEDED FOR MUSCLE PAIN 60 tablet 11 024 Active clobetasol (Temovate) 0.05 % creamIndications: Dermatitis APPLY THIN COAT TO AFFECTED AREA TWICE A DAY 60 g 2 024 Active albuterol (2.5 MG/3ML) 0.083% nebulizer solution INHALE 3ML BY NEBULIZATION ROUTE FOUR TIMES EVERY DAY IF NEEDED 75 mL 3 024 Active cholecalciferol (D3-1000) 25 MCG (1000 UT) capsuleIndication s:Vitamin D deficiency TAKE 1 CAPSULE BY MOUTH EVERY DAY 90 capsule 1 024 Active lisinopril 10 MG tabletIndications :Primary hypertension TAKE 1 TABLET BY MOUTH EVERY DAY 90 tablet 3 024 Active omeprazole (PriLOSEC) [address] capsuleIndication s:Abdominal pain, unspecified abdominal location TAKE 1 CAPSULE BY MOUTH EVERY DAY BEFORE A MEAL 90 capsule 1 024 Active Semaglutide-Weigh t Management (Wegovy) 1.7 MG/0.75ML solution auto-injectorIndi cations:Class 2 severe obesity due to excess calories with serious comorbidity and body mass index (BMI) of 35.0 to 35.9 in adult ([facility]) Inject 1.7 mg subcutaneously weekly 3 mL 3 024 Active lidocaine-priloca ine (Emla) 2.5-2.5 % creamIndications: Pain APPLY TOPICALLY 1 (ONE) TIME FOR 1 DOSE. APPLY TWICE A DAY NEEDED FOR PAIN 30 g 1 024 Active SUMAtriptan (Imitrex) 50 MG tabletIndications :Chronic migraine without aura without status migrainosus, not intractable TAKE 1 TABLET BY MOUTH AT ONSET OF MIGRAINE MAY REPEAT DOSE IN 2 HOURS IF NEEDED MAX 4 TABS DAILY 10 tablet 2 024 Active Acetaminophen Extra Strength 500 MG tabletIndications :Pain TAKE 1 TABLET BY MOUTH EVERY 8 HOURS NEEDED 90 tablet 1 025 Active diclofenac (Voltaren) 75 MG EC tabletIndications :Osteoarthritis of hip, unspecified laterality, unspecified osteoarthritis type TAKE 1 TABLET BY MOUTH TWICE A DAY NEEDED 60 tablet 3 025 Active diclofenac (Voltaren) 75 MG EC tabletIndications :Osteoarthritis of hip, unspecified laterality, unspecified osteoarthritis type TAKE 1 TABLET BY MOUTH TWICE A DAY NEEDED 60 tablet 3 024 2024 Discontinued Acetaminophen Extra Strength 500 MG tabletIndications :Pain TAKE 1 TABLET BY MOUTH EVERY 8 HOURS NEEDED 90 tablet 1 024 2024 Discontinued Tirzepatide-Weigh t Management (Zepbound) 5 MG/0.5ML solution auto-injectorIndi cations:Class 2 severe obesity due to excess calories with serious comorbidity and body mass index (BMI) of 35.0 to 35.9 in adult ([facility]) Inject 0.5 mL (5 mg) under the skin 1 (one) time per week. 2 mL 024 2024 Active Problems Problem Noted Date Diagnosed Date Chronic pain of right knee 03/14/2024 Overview (04/26/2024): - Ordered X-Rays 03/14/24 - Referred to Orthopaedic Surgery 03/14/24 -seen by Latia Guardado PA-C 04/25/24 options today which included physical therapy and a knee brace. She was fit for a knee brace i. If symptoms persist or worsen she can contact our office to discuss cortisone injection otherwise follow-up as needed. Assessment & Plan (03/14/2024 12:52 PM EST): - Ordered X-Rays 03/14/24 - Referred to Orthopaedic Surgery 03/14/24 Edentulous mandible 01/29/2024 Chronic neck pain 12/02/2023 Overview (12/02/2023): -S/p b/l C5 TFESI under floroscopy 10/12/23with moderate redcuion in neck pain Other specified health status 12/15/2022 Overview (03/14/2024): -next physical exam due after 03/14/25 -eye care facilitated by [facility] -dental home is [facility] -[facility] care proxy paperwork completed by to the patient 07/17/23 Assessment & Plan (03/14/2024 11:23 AM EST): -next physical exam due after 03/14/25 -eye care facilitated by [facility] -dental home is [facility] -[facility] care proxy paperwork completed by to the patient 07/17/23 Assessment & Plan (11/19/2023 11:08 AM EDT): -next physical exam due after 12/11/23 -eye care facilitated by [facility] -dental home is [facility] -[facility] care proxy paperwork completed by to the patient 07/17/23 Assessment & Plan (07/17/2023 10:10 AM EDT): -next physical exam due after 12/11/23 -eye care facilitated by [facility] -dental home is [facility] -[facility] care proxy paperwork completed by the patient 07/17/23 Neuropathy 09/03/2022 Overview (09/03/2022): Pt had episode of transient neuropathy/uncoordination that occured around 05/09/2021. Pt reports she is back to her baseline and can name the things to do with concern for stroke- check for speech deficits/slurring, facial asymmetry, weakness on one side. - to inform family of these signs to observe for and call 911 if they occur - cont BP mgmt and statin for modifiable risk factors Assessment & Plan (12/15/2022 9:37 AM EDT): Pt had episode of transient neuropathy/uncoordination that occured around 05/09/2021. Pt reports she is back to her baseline and can name the things to do with concern for stroke- check for speech deficits/slurring, facial asymmetry, weakness on one side. - to inform family of these signs to observe for and call 911 if they occur - cont BP mgmt and statin for modifiable risk factors Assessment & Plan (09/03/2022 10:28 AM EDT): Pt had episode of transient neuropathy/uncoordination that occured around 05/09/2021. Pt reports she is back to her baseline and can name the things to do with concern for stroke- check for speech deficits/slurring, facial asymmetry, weakness on one side. - to inform family of these signs to observe for and call 911 if they occur - cont BP mgmt and statin for modifiable risk factors Status post lumbar spinal fusion 09/03/2022 Overview (11/25/2023): Her pain is not controlled. Followed by pain management. Seen 11/25/23 She has a history of postlaminectomy syndrome. She has significant hardware at L5-S1 in the lumbar spine. Possibility exists to treat her condition with Nevro SCS versus intrathecal pain pump. However possibility exists that her pain is coming also from vertebra genic pain syndrome. Unfortunately the MRI report available to me does not comment on any Modic type changes in the lower lumbar vertebra. I requested the patient to obtain the MRI image on the disc from [facility] where she had MRI performed. I also requested her to read brochures about Nevro SCS and [employer]. Assessment & Plan (07/17/2023 10:03 AM EDT): Her pain is not controlled. Dillon asked her to reach out to her original prescriber for Vicodin at [facility]. She is 7 weeks post-op sugery and is weaning her percocet's. Dillon explained since she is on Ambien, gabapentin, and benzodiazapine I would not be able to safely prescribe the medications through our program. Assessment & Plan (12/15/2022 9:38 AM EDT): Her pain is not controlled. Dillon asked her to reach out to her original prescriber for Vicodin at [facility]. She is 7 weeks post-op sugery and is weaning her percocet's. Dillon explained since she is on Ambien, gabapentin, and benzodiazapine I would not be able to safely prescribe the medications through our program. Assessment & Plan (09/03/2022 12:12 PM EDT): Her pain is not controlled. Dillon asked her to reach out to her original prescriber for Vicodin at [facility]. She is 7 weeks post-op sugery and is weaning her percocet's. Dillon explained since she is on Ambien, gabapentin, and benzodiazapine I would not be able to safely prescribe the medications through our program. Arthritis 09/02/2022 Cerebrovascular accident (CVA) 09/02/2022 Overview (11/18/2023): Pt had episode of transient neuropathy/uncoordination that occured around 05/09/2021. Pt reports she is back to her baseline and can name the things to do with concern for stroke- check for speech deficits/slurring, facial asymmetry, weakness on one side. - to inform family of these signs to observe for and call 911 if they occur -cont BP mgmt and statin for modifiable risk factors -continue atorvastatin 40mg Chronic obstructive pulmonary disease 09/02/2022 Overview (11/19/2023): Much worse since diagnosis of Covid. Heavy tobacco hx. -continue Flovent -continue Spiriva started 07/26/2020 -continue Albuterol prn -followed by pulmonology PFTs and lung cancer screening ordered 08/2020 again 07/17/23 -pt is on multiple sedating meds with psychiatry and pain management and understands risks. Discussed 09/10/2020 and she is trying to cut down on some. Assessment & Plan (11/19/2023 11:06 AM EDT): Much worse since diagnosis of Covid. Heavy tobacco hx. -continue Flovent -continue Spiriva started 07/26/2020 -continue Albuterol prn -followed by pulmonology PFTs and lung cancer screening ordered 08/2020 again 07/17/23 -pt is on multiple sedating meds with psychiatry and pain management and understands risks. Discussed 09/10/2020 and she is trying to cut down on some. Assessment & Plan (07/17/2023 9:45 AM EDT): Much worse since diagnosis of Covid. Heavy tobacco hx. -continue Flovent -continue Spiriva started 07/26/2020 -continue Albuterol prn -followed by pulmonology PFTs and lung cancer screening ordered 08/2020 -pt is on multiple sedating meds with psychiatry and pain management and understands risks. Discussed 09/10/2020 and she is trying to cut down on some. Assessment & Plan (12/15/2022 9:37 AM EDT): Much worse since diagnosis of Covid. Heavy tobacco hx. -continue Flovent -continue Spiriva started 07/26/2020 -continue Albuterol prn -followed by pulmonology PFTs and lung cancer screening ordered 08/2020 -pt is on multiple sedating meds with psychiatry and pain management and understands risks. Discussed 09/10/2020 and she is trying to cut down on some. Assessment & Plan (09/03/2022 10:22 AM EDT): Much worse since diagnosis of Covid. Heavy tobacco hx. -continue Flovent -continue Spiriva started 07/26/2020 -continue Albuterol prn -followed by pulmonology PFTs and lung cancer screening ordered 08/2020 -pt is on multiple sedating meds with psychiatry and pain management and understands risks. Discussed 09/10/2020 and she is trying to cut down on some. Incontinence 09/02/2022 Class 2 severe obesity due t o excess calories with serious comorbidity and body mass index (BMI) of 35.0 to 35.9 in adult 09/02/2022 Overview (03/14/2024): Pt requests GLP-1 inhibitor for weight loss. Pt has serious health conditions of severe deconditioning, severe osteoarthritis, hx stroke and hypertension. Weight loss effort tried in the past including diet, exercise were unsuccessful. Will request coverage of Wegovy from insurance 09/23/23. -given BMI >30kg/m2 or >27kg/m2 with one or more weight related comorbidities pt is a candidate for glucagon-like peptide-1s (GLP-1) to assist with weight loss -to be used in combination with reduced calorie diet and increased physical activity -Wegovy (semaglutide) Start 0.25mg subcutaneously qweek 1-4 weeks, increase to 0.5mg subcutaneously qweek for weeks 5-8, increase to 1mg subcutaneously qweek for weeks 9-1, Increase to 1.7 mg subcutaneously q week weeks 13-16, increase tp 2.4mg subcutaneously q week If dose is not tolerated consider delaying dose increase for 4 weeks. Treatment doses considered to be 1.7 or 2.4 mg jail. -PA resubmitted 11/19/23 - Advised to Switch from Wegovy to Mounjaro 03/14/24 Assessment & Plan (03/14/2024 1:11 PM EST): Pt requests GLP-1 inhibitor for weight loss. Pt has serious health conditions of severe deconditioning, severe osteoarthritis, hx stroke and hypertension. Weight loss effort tried in the past including diet, exercise were unsuccessful. Will request coverage of Wegovy from insurance 09/23/23. -given BMI >30kg/m2 or >27kg/m2 with one or more weight related comorbidities pt is a candidate for glucagon-like peptide-1s (GLP-1) to assist with weight loss -to be used in combination with reduced calorie diet and increased physical activity -Wegovy (semaglutide) Start 0.25mg subcutaneously qweek 1-4 weeks, increase to 0.5mg subcutaneously qweek for weeks 5-8, increase to 1mg subcutaneously qweek for weeks 9-1, Increase to 1.7 mg subcutaneously q week weeks 13-16, increase tp 2.4mg subcutaneously q week If dose is not tolerated consider delaying dose increase for 4 weeks. Treatment doses considered to be 1.7 or 2.4 mg jail. -BUZZ resubmitted 11/19/23 - Advised to Switch from Wegovy to Mounjaro 03/14/24 Assessment & Plan (11/19/2023 11:05 AM EDT): Pt requests GLP-1 inhibitor for weight loss. Pt has serious health conditions of severe deconditioning, severe osteoarthritis, hx stroke and hypertension. Weight loss effort tried in the past including diet, exercise were unsuccessful. Will request coverage of Wegovy from insurance 09/23/23. -given BMI >30kg/m2 or >27kg/m2 with one or more weight related comorbidities pt is a candidate for glucagon-like peptide-1s (GLP-1) to assist with weight loss -to be used in combination with reduced calorie diet and increased physical activity -Wegovy (semaglutide) Start 0.25mg subcutaneously qweek 1-4 weeks, increase to 0.5mg subcutaneously qweek for weeks 5-8, increase to 1mg subcutaneously qweek for weeks 9-1, Increase to 1.7 mg subcutaneously q week weeks 13-16, increase tp 2.4mg subcutaneously q week If dose is not tolerated consider delaying dose increase for 4 weeks. Treatment doses considered to be 1.7 or 2.4 mg jail. -BUZZ resubmitted 11/19/23 Assessment & Plan (09/23/2023 12:35 PM EDT): Addendum, 09/23/23: Pt requests GLP-1 inhibitor for weight loss. Pt has serious health conditions of severe deconditioning, severe osteoarthritis, hx stroke and hypertension. Weight loss effort tried in the past including diet, exercise were unsuccessful. Will request coverage of Wegovy from insurance 09/23/23. -given BMI >30kg/m2 or >27kg/m2 with one or more weight related comorbidities pt is a candidate for glucagon-like peptide-1s (GLP-1) to assist with weight loss -to be used in combination with reduced calorie diet and increased physical activity -Wegovy (semaglutide) Start 0.25mg subcutaneously qweek 1-4 weeks, increase to 0.5mg subcutaneously qweek for weeks 5-8, increase to 1mg subcutaneously qweek for weeks 9-1, Increase to 1.7 mg subcutaneously q week weeks 13-16, increase tp 2.4mg subcutaneously q week If dose is not tolerated consider delaying dose increase for 4 weeks. Treatment doses considered to be 1.7 or 2.4 mg jail. Chronic low back pain 07/23/2022 Overview (03/14/2024): -s/p surgery with Dr. Tania Escamilla 06/2022 -thoracic x rays 01/29/23 demonstrate dextroscolosis, disc space narrowing at T6-T7, mild degenerative changes -lumbar MRI 12/10/22 demonstrates transitional lumbosacra anatomy with sacralized L5, multilevel disc bulge, facet arthropathy, LF thickening; L1-L2 mild left NFS; L2-L3 mild central stenosis, interbody device -Pt continues to report severe pain. She is getting Vicodin from [facility]. She requests opiate medications from me. We have reviewed her sedating medications together many times which include zolpidem (Ambien), alprazolam (Xanax), gabapentin (Neurontin), lamotrigine (Lamactal), Oxcarbazepine (Trileptal), and quetiapine (Seroquel). I have explained it would not be safe to prescribe increasing doses of opiates in the setting of her multiple sedating medications and COPD. She is high risk for respiratory depression. -She has regularly seen orthopedics, pain management and tried physical therapy, multiple injections, and awaiting TENs unit. -She underwent for L4-L5 fusion for spondylolisthesis 07/10/22. Experienced a lot of post-op pain despite dilaudid and could not tolerate ketorolac. Dilaudid switched to oxycodone and patient had a better response. Visit on 09/03/2022 she continued to report back pain despite surgery. She has pain when sitting and laying down. Unable to lay on her back. She reprots she stays in bed most of the day. Pain in lower back and buttocks, feels as though someone is standing on her . Pt also has neck and hip pain. She reports she can't even cook which bring her much matty due to the severity of the pain. She reports she feels she can't live due to the pain. She sees a therapist and psychiatrist. -[facility] and [place] prescribing hydrocodone/APA to support instrumented activities of daily living. Note from 11/26/23 reviewed. -I will discuss with our pain management providers for any recommendations - Referred to follow up with Pain management. Pain pump is being advised 03/14/24 Assessment & Plan (03/14/2024 11:31 AM EST): -s/p surgery with Dr. Tania Escamilla 06/2022 -thoracic x rays 01/29/23 demonstrate dextroscolosis, disc space narrowing at T6-T7, mild degenerative changes -lumbar MRI 12/10/22 demonstrates transitional lumbosacra anatomy with sacralized L5, multilevel disc bulge, facet arthropathy, LF thickening; L1-L2 mild left NFS; L2-L3 mild central stenosis, interbody device -Pt continues to report severe pain. She is getting Vicodin from [facility]. She requests opiate medications from me. We have reviewed her sedating medications together many times which include zolpidem (Ambien), alprazolam (Xanax), gabapentin (Neurontin), lamotrigine (Lamactal), Oxcarbazepine (Trileptal), and quetiapine (Seroquel). I have explained it would not be safe to prescribe increasing doses of opiates in the setting of her multiple sedating medications and COPD. She is high risk for respiratory depression. -She has regularly seen orthopedics, pain management and tried physical therapy, multiple injections, and awaiting TENs unit. -She underwent for L4-L5 fusion for spondylolisthesis 07/10/22. Experienced a lot of post-op pain despite dilaudid and could not tolerate ketorolac. Dilaudid switched to oxycodone and patient had a better response. Visit on 09/03/2022 she continued to report back pain despite surgery. She has pain when sitting and laying down. Unable to lay on her back. She reprots she stays in bed most of the day. Pain in lower back and buttocks, feels as though someone is standing on her . Pt also has neck and hip pain. She reports she can't even cook which bring her much matty due to the severity of the pain. She reports she feels she can't live due to the pain. She sees a therapist and psychiatrist. -[facility] and [place] prescribing hydrocodone/APA to support instrumented activities of daily living. Note from 11/26/23 reviewed. -I will discuss with our pain management providers for any recommendations - Referred to follow up with Pain management. Pain pump is being advised 03/14/24 Assessment & Plan (11/19/2023 11:10 AM EDT): -s/p surgery with Dr. Tania Escamilla 06/2022 -Pt continues to report severe pain. She is getting Vicodin from [facility]. She requests opiate medications from me. We have reviewed her sedating medications together many times which include zolpidem (Ambien), alprazolam (Xanax), gabapentin (Neurontin), lamotrigine (Lamactal), Oxcarbazepine (Trileptal), and quetiapine (Seroquel). I have explained it would not be safe to prescribe increasing doses of opiates in the setting of her multiple sedating medications and COPD. She is high risk for respiratory depression. She has regularly seen orthopedics, pain management and tried physical therapy, multiple injections, and awaiting TENs unit. She underwent for L4-L5 fusion for spondylolisthesis 07/10/22. Experienced a lot of post-op pain despite dilaudid and could not tolerate ketorolac. Dilaudid switched to oxycodone and patient had a better response. Visit on 09/03/2022 she continued to report back pain despite surgery. She has pain when sitting and laying down. Unable to lay on her back. She reprots she stays in bed most of the day. Pain in lower back and buttocks, feels as though someone is standing on her . Pt also has neck and hip pain. She reports she can't even cook which bring her much matty due to the severity of the pain. She reports she feels she can't live due to the pain. She sees a therapist and psychiatrist. -I will discuss with our pain management providers for any recommendations Assessment & Plan (07/17/2023 10:06 AM EDT): -s/p surgery with Dr. Tania Escamilla 06/2022 Assessment & Plan (12/15/2022 9:30 AM EDT): -s/p surgery with Dr. Tania Escamilla 06/2022 Assessment & Plan (09/03/2022 9:53 AM EDT): -s/p surgery with Dr. Tania Escamilla 06/2022 Assessment & Plan (07/30/2022 2:39 PM EDT): Patient is still in pain, likely pain is secundary to post-op swelling and also soft tissue infection, she will follow up with specialist Cervical high risk HPV (human papillomavirus) te st positive 05/05/2022 Overview (03/14/2024): -Pap NILM, HPV positive 07/2021 -Colpo negative with Dr. Aaron 08/2021 -cotesting due 1 year -Referral placed to Gynecology, Dr. Aaron 07/17/23 -[facility] called 09/23/23 stating pt declined appt due to having severe pain. Pt could just call and schedule appt when she's ready referral cancel. - Will complete Gynecological exam after receiving pain pump due to her severe pain 03/14/24 Assessment & Plan (03/14/2024 11:26 AM EST): -Pap NILM, HPV positive 07/2021 -Colpo negative with Dr. Aaron 08/2021 -cotesting due 1 year -Referral placed to Gynecology, Dr. Aaron 07/17/23 -[facility] called 09/23/23 stating pt declined appt due to having severe pain. Pt could just call and schedule appt when she's ready referral cancel. - Will complete Gynecological exam after receiving pain pump due to her severe pain 03/14/24 Assessment & Plan (11/19/2023 11:05 AM EDT): -Pap NILM, HPV positive 07/2021 -Colpo negative with Dr. Aaron 08/2021 -cotesting due 1 year -Referral placed to Gynecology, Dr. Aaron 07/17/23 -[facility] called 09/23/23 stating pt declined appt due to having severe pain. Pt could just call and schedule appt when she's ready referral cancel. Assessment & Plan (07/17/2023 10:18 AM EDT): -Pap NILM, HPV positive 07/2021 -Colpo negative with Dr. Aaron 08/2021 -cotesting due 1 year - Referral placed to Gynecology, Dr. Aaron 07/17/23 Assessment & Plan (12/15/2022 9:30 AM EDT): -Pap NILM, HPV positive 07/2021 -Colpo negative with Dr. Aaron 08/2021 -cotesting due 1 year Hypertension 02/10/2018 Overview (12/15/2022): -Blood pressure is not at goal. Currently in mod to sever pain -Continue lifestyle modifications -Continue current medications Assessment & Plan (12/15/2022 9:56 AM EDT): -Blood pressure is at goal -Continue lifestyle modifications -Continue current medications History of artificial joint 06/02/2013 Overview (12/02/2023): -hx left hip replacement 01/29/2021 Osteoarthritis of hip 06/02/2013 Hip pain 07/13/2012 Overview (11/19/2023): -s/p two hip relacements -needs assistance with all ADLs Assessment & Plan (11/19/2023 11:08 AM EDT): -s/p two hip relacements -needs assistance with all ADLs Assessment & Plan (12/15/2022 9:37 AM EDT): -She has had 2 complete hip replacements. -She needs assistance with all activities of daily living Assessment & Plan (09/03/2022 10:21 AM EDT): -She has had 2 complete hip replacements. -She needs assistance with all activities of daily living Abnormal mammogram 01/19/2012 Dyslipidemia 01/19/2012 Overview (03/14/2024): Lab Results Component Value Date CHOLESTEROL 210 (H) 09/03/2022 LDLCHOL 124 (H) 09/03/2022 TRIG 168 (H) 07/17/2023 TRIG 159 (H) 09/03/2022 HDLCHOL 59 09/03/2022 CHOLHDLRAT 3.6 09/03/2022 -continue lifestyle modifications -atorvastatin 40mg restarted 07/20/23 Assessment & Plan (11/19/2023 11:07 AM EDT): Lab Results Component Value Date CHOLESTEROL 210 (H) 09/03/2022 LDLCHOL 124 (H) 09/03/2022 TRIG 168 (H) 07/17/2023 TRIG 159 (H) 09/03/2022 HDLCHOL 59 09/03/2022 CHOLHDLRAT 3.6 09/03/2022 -continue lifestyle modifications -atorvastatin 40mg restarted 07/20/23 Assessment & Plan (07/17/2023 10:04 AM EDT): Lab Results Component Value Date CHOLESTEROL 210 (H) 09/03/2022 LDLCHOL 124 (H) 09/03/2022 TRIG 159 (H) 09/03/2022 HDLCHOL 59 09/03/2022 CHOLHDLRAT 3.6 09/03/2022 - Continue lifestyle modifications Assessment & Plan (12/15/2022 9:56 AM EDT): Lab Results Component Value Date CHOLESTEROL 210 (H) 09/03/2022 LDLCHOL 124 (H) 09/03/2022 TRIG 159 (H) 09/03/2022 HDLCHOL 59 09/03/2022 CHOLHDLRAT 3.6 09/03/2022 -continue lifestyle modifications Anxiety 11/24/2011 Depression with anxiety 11/24/2011 Overview (11/19/2023): -continue with therapist and psychiatrist. Assessment & Plan (11/19/2023 11:07 AM EDT): -continue with therapist and psychiatrist. Assessment & Plan (09/03/2022 10:22 AM EDT): Continue with therapist and psychiatrist. Gastroesophageal reflux disease 11/24/2011 Tobacco dependence syndrome 11/24/2011 Overview (11/18/2023): -seen by smoking cessation -she will try nicotine patch and inhaler -CAT scan 10/29/2020 was normal, repeat in one year -Pt request an inhaler, patches, and gum 12/15/2022, declines chantix. -CT scan ordered 07/17/23 Assessment & Plan (11/19/2023 11:08 AM EDT): -seen by smoking cessation -she will try nicotine patch and inhaler -CAT scan 10/29/2020 was normal, repeat in one year -Pt request an inhaler, patches, and gum 12/15/2022, declines chantix. -CT scan ordered 07/17/23 Assessment & Plan (07/17/2023 10:08 AM EDT): -seen by smoking cessation -she will try nicotine patch and inhaler -CAT scan 10/29/2020 was normal, repeat in one year -Pt request an inhaler, patches, and gum 12/15/2022, declines chantix. - CT scan ordered 07/17/23 Assessment & Plan (12/15/2022 9:58 AM EDT): -seen by smoking cessation -she will try nicotine patch and inhaler -CAT scan 10/29/2020 was normal, repeat in one year -Pt request an inhaler, patches, and gum 12/15/2022, declines chantix. Assessment & Plan (09/03/2022 10:22 AM EDT): -seen by smoking cessation -she will try nicotine patch and inhaler -CAT scan 10/29/2020 was normal, repeat in one year -Pr request Chantix 02/10/22. Resolved Problems Problem Noted Date Diagnosed Date Resolved Date Current smoker 09/02/2022 11/18/2023 Vaginal atrophy 09/02/2022 09/23/2023 Disorder of carbohydrate metabolism 07/16/2022 12/15/2022 Nerve root disorder 07/16/2022 09/23/19 Visual impairment 09/21/2017 09/23/2023 Headache 05/30/2016 09/23/2023 Backache 01/19/2012 11/18/2023 Hand pain 11/24/2011 09/23/2023 Encounters Date Type Department Care Team Description 05/16/2024 Refill [facility] [address] [place] [address] [phone] Nicky Thibodeaux MD Osteoarthritis of hip, unspecified laterality, unspecified osteoarthritis type 05/11/2024 Telephone [facility] [address] [place] [address] [phone] Nicky Thibodeaux MD Nurse Triage 05/02/2024 Telephone [facility] [address] [place] [address] [phone] Nicky Thibodeaux MD 04/27/2024 Refill [facility] [address] [place] [address] 95209 Nicky Thibodeaux MD Pain 04/18/2024 Telephone [facility] [address] [place] [address] 35063 Nicky Thibodeaux MD Referral 04/15/2024 Telephone [facility] [place] [address] Miriam Macias MA PA for Zepbound 5mg 04/04/2024 Telephone [facility] [place] [address] Nicky Thibodeaux MD Prior Authorization ( PA request: Zepbound) 03/31/2024 Telephone [facility] [place] [address] Nicky Thibodeaux MD 03/30/2024 Orders Only [facility] [place] [address] Nicky Thibodeaux MD Class 2 severe obesity due to excess calories with serious comorbidity and body mass index (BMI) of 35.0 to 35.9 in adult (CMS/HCC) (Primary Dx) 03/25/2024 Telephone [facility] [place] [address] Luann Nelson RN Med Refill (Wegovy notification) 03/14/2024 10:30 AM EST Office Visit [facility] [place], [place] [phone] Nicky Thibodeaux MD Other specified health status (Primary Dx); Chronic low back pain, unspecified back pain laterality, unspecified whether sciatica present; Class 2 severe obesity due to excess calories with serious comorbidity and body mass index (BMI) of 35.0 to 35.9 in adult (CMS/HCC); Chronic pain of right knee; Cervical high risk HPV (human papillomavirus) test positive; Chronic neck pain 03/14/2024 Travel 03/04/2024 Refill [facility] [place], [place] [phone] Nicky Thibodeaux MD Chronic migraine without aura without status migrainosus, not intractable 03/04/2024 Refill [facility] [place] [address] Nicky Thibodeaux MD Pain; Chronic migraine without aura without status migrainosus, not intractable 02/24/2024 Refill [facility] [place], [place] [phone] Nicky Thibodeaux MD Pain from Last 3 Months Immunizations Name Administration Dates Next Due Influenza, IIV3, injectable 04/05/2014 Influenza, Split (incl. purified surface antigen ) 12/29/2012,01/19/2012 Pneumococcal Polysaccharide PPSV23 04/05/2014 Tdap 09/03/2022,05/07/2011 Social History Tobacco Use Types Packs/Day Years Used Date Smoking Tobacco: Every Day Cigarettes Passive Smoke Exposure: Current Smokeless Tobacco: Never Tobacco Cessation:Ready to Q uit: Not Asked; Counseling Given: Not Answered Depression Answer Date Recorded Patient Health Questionnaire-9 Score 14 03/14/2024 Patient Health Questionnaire-9 Score 14 03/14/2024 Last PHQ-9: Questionnaire Data Not on file 1 05/14/2023 Housing Stability Answer Date Recorded What is your housing situation today? I have ruy harinder 11/09/[address] you li [...] Orientation Straight 02/17/2022 10 :18 AM EDT Last Filed Vital Signs Vital Sign Reading Time Taken Comments Blood Pressure 125/82 03/14/2024 10:52 AM EST Pulse 91 03/14/2024 10:52 AM EST Temperature 36.2 ??C (97.1 ??F) 03/14/2024 10:[address] Respiratory Rate 15 03/14/2024 10:52 AM EST Oxygen Saturation 96% 03/14/2024 10:52 AM EST Inhaled Oxygen Concentration - - Weight 95 kg (209 lb 6.4 oz) 03/14/2024 10:52 AM EST Height 167.6 cm (5' 6 ) 12/15/2022 9:25 AM EDT Body Mass Index 33.8 12/15/2022 9:25 AM EDT Plan of Treatment Health Maintenance Due Date Last Done Comments CT Colonography 1965 FIT DNA/Cologuard 1965 FIT 1965 FOBT 1965 Sigmoidoscopy 1965 Dental Oral Exam 08/03/2018 02/01/2018, , 04/30/2010 Dental X-Ray: Bitewings 02/02/2019 02/01/2018, 12/02 Dental Prophylaxis 10/05/2021 04/05/2021 Cervical Cancer Screening 09/11/2022 HPV/Cotest 09/11/2022 08/02/2021 Pap Smear 09/11/2022 08/02/2021, 08/02/2021 COVID-19 Vaccine ( - season) 2023 Influenza Vaccine (#1) 2023 4, 12/29/2012, 01/19/2012 Hepatitis A Vaccines (1 of 2 - Risk 2-dose series) 07/16/2024 Postponed from 1984 (Patient Refused) Hepatitis B Vaccines (1 of 3 - 19+ 3-dose series) 07/16/2024 Postponed from 1984 (Patient Refused) Pneumococcal Vaccine: Pediatrics (0 to 5 Years) and At-Risk Patients (6 to 49) Years) (2 of 2 - PCV) 07/16/2024 04/05/2014 Postponed from 04/05/2015 (Patient Refused) Zoster Vaccines (1 of 2) 07/16/2024 Pos tponed from 07/21/2015 (Patient Refused) Depression Monitoring (PHQ-9) 09/11/2024 03/14/2024, 03/14/2024 SDOH Screening 11/08/2024 11/09/2023 Alcohol/Substance Use Screening 03/14/2025 03/14/2024 Depression Screening 03/14/2025 03/14/2024, 03/14/20 Tobacco Screening 03/14/2025 03/14/2024 Mammogram 08/10/2025 08/11/2023, 10/18, 10/29/2020, Additional history exists Colonoscopy 12/10/2025 12/11/2015 Colorectal Cancer Screening 12/10/2025 Dental X-Ray: Full Mouth 01/29/2027 01/29/2024, 11/18 Lipid Panel 07/16/2028 07/17/2023, 09/03/2022 DTaP/Tdap/Td Vaccines (3 - Td or Tdap) 09/03/2032 09/03/2022, 05/07/2011 RSV Patients and Patients Aged 60 years or older (1 - 1-dose 75+ series) 2040 HIV Screening Completed 09/03/2022 Hepatitis C Screening Completed 09/03/2022 HIB Vaccines Aged Out No longer eligi ble based on patient's age to complete this topic HPV Vaccines Aged Out No longer eligi ble based on patient's age to complete this topic IPV Vaccines Aged Out No longer eligi ble based on patient's age to complete this topic Meningococcal Vaccine Aged Out No susan vijay eligible based on patient's age to complete this topic RSV under 20 months Aged Out No longe r eligible based on patient's age to complete this topic Rotavirus Vaccines Aged Out No longer eligible based on patient's age to complete this topic Procedures Procedure Name Priority Date/Time Associated Diagnosis Comments PANORAMIC RADIOGRAPHIC IMAGE Routine 01/29/2024 3:30 PM EDT BI MAMMOGRAM SCREENING TOMOSYNTHESIS BILATERAL Routine 08/11/2023 1:05 PM EDT Breast cancer screening by mammogram LIPID PANEL, STANDARD Routine 07/17/2023 10:24 AM EDT Dyslipidemia HEPATITIS C AB W/REFL TO HCV RNA, QN, PCR Routine 09/03/2022 11:58 AM EDT Routine screening for STI (sexually transmitted infection) HIV 1/2 ANTIGEN/ANTIBODY, FOURTH GENERATION W/RFL Routine 09/03/2022 11:58 AM EDT Routine screening for STI (sexually transmitted infection) THINPREP IMAGING PAP AND HPV MRNA E6/E7, WITH CT/NG, TRICHOMONAS Routine 08/02/2021 11:49 AM EDT PAP SMEAR Routine 08/02/2021 12:00 AM EDT PROPHYLAXIS - ADULT Routine 04/05/2021 1 2:00 AM EST BITEWINGS - 4 RADIOGRAPHIC IMAGES Routine 02/01/2018 12:00 AM EDT PERIODIC ORAL EVALUATION - ESTABLISHED PATIENT Routine 02/01/2018 12:00 AM EDT HM COLONOSCOPY Routine 12/11/2015 from Last 3 Months or Most Recently Relevant to Health Maintenance Results * BI Mammogram Screening Tomosynthesis Bilateral (08/11/2023 1:05 PM EDT) Anatomical Region Laterality Modality Breast Bilateral Mammography 08/11/2023 1:05 PM EDT Narrative 08/22/2023 7:23 AM EDT ? [facility] [place] ? [address] ?[place] [id number] ? Mammography Report ? Signed ? Patient: Couture,Darcy F ?MR#: [id number] ?? [id number] ? : 1965 ?Acct:[id number] ? Age/Sex: 58 / F ?ADM Date: 04/23/24 ? Loc: HO.MAMMO ? Attending Dr: Nicky Thibodeaux MD ? Ordering Physician: Nicky Thibodeaux MD ?Results: 2B ?? enign Findings ? Date of Service: 08/11/23 ?Follow Up: 1 Year From Orig ?? inal Mammogram ? Procedure(s): MM tomosynthesis screening BI ?? Accession Number(s): [id number] ? cc: Nicky Thibodeaux MD ? EXAMINATION: ?? MM SCREENING DIGITAL BREAST TOMOSYNTHESIS, BILATERAL ? CLINICAL INFORMATION: ? Screening. Asymptomatic. ? COMPARISON: ?? Mammography: This study is compared with prior exams dating back to ?? 2018. ? TECHNIQUE: ?? Digital breast tomosynthesis is performed in both the craniocaudal and ?? mediolateral oblique views along with computer-aided detection (CAD). ?? Synthesized 2D images are generated from the tomosynthesis. ? FINDINGS: ?? The breasts are almost entirely fatty (ACR BI-RADS breast composition ?? Category a). ? There are no significant masses, abnormal calcifications, or other ?? abnormalities. ? There are 2 tissue markers in the left breast from prior benign ?? percutaneous biopsies. ? MM/MM tomosynthesis screening BI ?? IMPRESSION: ?? No mammographic evidence of malignancy. ? ASSESSMENT: ? BI-RADS BI-RADS 2 - Benign Findings ? RECOMMENDATION: ?? Routine annual mammography screening. ? 1 year F/U ? This examination should not preclude the clinical evaluation of a ?? suspicious palpable abnormality. ? This patient's information was entered into a reminder system with a ?? target due date for their next mammogram. ? Dictated By: ?Maria Elena Guillen MD ? Signed By: ?<Electronically signed by Maria Elena Guillen MD in OV> ? /08/11 718 ? DD/ 1305 ? TD/TT: ? Loss Claim Clerk: ? Procedure Note Donotuseinterpreter, Image - 08/22/2023 [facility] [address] [place] [address] Mammography Report Signed Patient: Darcy Medina FMR#: [id number] : 1965Acct:[id number] Age/Sex: 58 / FADM Date: 08/11/23 Loc: HO.MAMMO Attending Dr: Nicky Thibodeaux MD Ordering Physician: Nicky Thibodeaux MDResults: 2B enign Findings Date of Service: 08/11/23Follow Up: 1 Year From Orig inal Mammogram Procedure(s): MM tomosynthesis screening BI Accession Number(s): [id number] cc: Nicky Thibodeaux MD EXAMINATION: MM SCREENING DIGITAL BREAST TOMOSYNTHESIS, BILATERAL CLINICAL INFORMATION: Screening. Asymptomatic. COMPARISON: Mammography: This study is compared with prior exams dating back to 2019. TECHNIQUE: Digital breast tomosynthesis is performed in both the craniocaudal and mediolateral oblique views along with computer-aided detection (CAD). Synthesized 2D images are generated from the tomosynthesis. FINDINGS: The breasts are almost entirely fatty (ACR BI-RADS breast composition Category a). There are no significant masses, abnormal calcifications, or other abnormalities. There are 2 tissue markers in the left breast from prior benign percutaneous biopsies. MM/MM tomosynthesis screening BI IMPRESSION: No mammographic evidence of malignancy. ASSESSMENT: BI-RADS BI-RADS 2 - Benign Findings RECOMMENDATION: Routine annual mammography screening. 1 year F/U This examination should not preclude the clinical evaluation of a suspicious palpable abnormality. This patient's information was entered into a reminder system with a target due date for their next mammogram. Dictated By: Maria Elena Guileln MD Signed By: <Electronically signed by Maria Elena Guillen MD in OV> 08/22/23 0719 DD/ 1305 TD/TT: Loss Claim Clerk: Nicky Thibodeaux MD IMG BI PROCEDURES Edited R esult - Final * (ABNORMAL) Lipid Panel, Standard (07/17/2023 10:24 AM EDT) Triglycerides 168(H) <150 mg/dL [facility] Comment:Desirable Triglyceri de: less than 150 mg/dLBorderline High Triglyceride 150-199 mg/dLHigh Triglyceride: 200-499 mg/dLVery High Triglyceride: greater than or equal to 5OO mg/dL Cholesterol 219(H) <200 mg/dL [facility] Comment:Desirable Cholestero l: less than 200 mg/dLBorderline High Cholesterol: 200-239 mg/dLHigh Cholesterol: greater than 239 mg/dL LDL Cholesterol Calculated 137(H) <100 mg/dL [facility] Comment:Desirable LDL: less than 100 mg/dLNear Optimal/Above Optimal LDL: 110- 129 mg/dLBorderline High LDL: 130-159 mg/dLHigh LDL: 160-189 mg/dLVery High LDL: greater than or equal to 190 mg/dL HDL Cholesterol 49 >40 mg/dL [facility] Comment:Desirable HDL: great er than 40 mg/dL Note: This HDL assay may give artificially low results in patients with liver disease. Blood Venous blood specimen / Unknown 07/17/2023 10:24 AM EDT 07/17/2023 11:19 AM EDT us Nicky Thibodeaux MD LAB BLOOD ORDERABLES Final Result [facility] [address] [place] [phone] * Hepatitis C Antibody with Reflex to HCV, RNA, Quantitative, Real-Time PCR (09/03/2022 11:58 AM EDT) Hepatitis C Antibody NON-REACT DILLON NON-REACT DILLON Sanergy Index 0.02 <1.00 [facility] [place] [facility] Comment: HCV antibody was non-reactive. There is no laboratory evidence of HCV infection. In most cases, no further action is required. However, if recent HCV exposure is suspected, a test for HCV RNA (test code 19915) is suggested. For additional information please refer to http://education.MovieSet/faq/HBD33q3 (This link is being provided for informational/ educational purposes only.) Blood Venous blood specimen / Unknown 09/03/2022 11:58 AM EDT 09/03/2022 11:58 AM EDT Narrative [facility] - 09/07/2022 11:33 PM EDT FASTING:YES FASTING: YES Nicky Thibodeaux MD LAB BLOOD ORDERABLES Final Result [facility] [address] [facility], [place] [address] [facility] [place] [address] [facility] [address] [place] [address] * HIV-1/2 Antigen and Antibodies, Fourth Generation, with Reflexes (09/03/2022 11:58 AM EDT) Pathologist [facility] HIV Antigen/Antibody, 4th Generation NON-REAC TIVE NON-REAC TIVE [facility] Comment: HIV-1 antigen and HIV-1/HIV-2 antibodies were not detected. There is no laboratory evidence of HIV infection. PLEASE NOTE: This information has been disclosed to you from records whose confidentiality may be protected by state law. ??If your state requires such protection, then the state law prohibits you from making any further disclosure of the information without the specific written consent of the person to whom it pertains, or as otherwise permitted by law. A general authorization for the release of medical or other information is NOT sufficient for this purpose. ?? For additional information please refer to http://[employer].Matter and Form.Treedom/faq/HTQ437 (This link is being provided for informational/ educational purposes only.) The performance of this assay has not been clinically validated in patients less than 2 years old. Blood Venous blood specimen / Unknown 09/03/2022 11:58 AM EDT 09/03/2022 11:58 AM EDT Narrative [facility] - 09/07/2022 11:33 PM EDT FASTING:YES FASTING: YES Nicky Thibodeaux MD LAB BLOOD ORDERABLES Final Result [facility] [address] [facility], [place] [address] [facility] [address] [place] [address] * (ABNORMAL) THINPREP TIS PAP AND HPV mRNA E6/E7, CT/NG, TRICH (08/02/2021 11:49 AM EDT) Chlamydia trachomatis RNA, TMA, Urogenital NOT DETECTED NOT DETECTED [facility] Clinical Information: None given [facility] COMMENT SEE COMMENT [facility] Comment: The analytical performance characteristics of this assay, when used to test SurePath(TM) specimens have been determined by [facility]. The modifications have not been cleared or approved by the FDA. This assay has been validated pursuant to the CLIA regulations and is used for clinical purposes. ?? For additional information, please refer to https://education.MovieSet/faq/CGD678 (This link is being provided for information/ educational purposes only.) ?? COMMENT SEE COMMENT [facility] Comment: EXPLANATORY NOTE: ? The Pap is a screening test for cervical cancer. It is ?? not a diagnostic test and is subject to false negative ?? and false positive results. It is most reliable when a ?? satisfactory sample, regularly obtained, is submitted ?? with relevant clinical findings and history, and when ?? the Pap result is evaluated along with historic and ?? current clinical information. ?? COMMENT: This Pap test has been evaluated with computer assisted technology. [employer] Manufacturing Assistant: SEE COMMENT [facility] Comment: DCR, CT(ASCP) CT screening location: [address] ??[address] HPV nRNA E6/E7 Detected(A) Not Detected [employer] Comment: Methodology: Battery Inspector-Mediated Amplification This assay detects E6/E7 viral messenger RNA (mRNA) from 14 high-risk HPV types (16,18,31,33,35,39,45,51,52,56,58,59,66,68). ? The analytical performance characteristics of this assay have been determined by [facility]. The modifications have not been cleared or approved by the FDA. This assay has been validated pursuant to the CLIA regulations and is used for clinical purposes. ?? For additional information, please refer to http://[employer].MovieSet/faq/VSO313f1 (This link if provided for information/ educational purposes only.) Interpretation/Res ult: SEE COMMENT [facility] Comment: Negative for intraepithelial lesion or malignancy. Atrophic pattern; predominantly parabasal cells LMP: NONE GIVEN [facility] Neisseria gonorrhoeae RNA, TMA, Urogenital NOT DETECTED NOT DETECTED [facility] Prev. BX: NONE GIVEN [facility] Prev. PAP: NONE GIVEN [facility] Review Manufacturing Assistant: SEE COMMENT [facility] Comment: JXM, CT(ASCP) CT screening location: [address] ??[id number] SOURCE: None given [facility] Statement Of Adequacy: SATISFACTORY FOR EVALUATION [facility] Trichomonas vaginalis, QL, TMA, PAP Vial NOT DETECTED NOT DETECTED [facility] Comment: The analytical performance characteristics of this assay have been determined by [facility]. The modifications have not been cleared or approved by the FDA. This assay has been validated pursuant to the CLIA regulations and is used for clinical purposes. ?? For additional information, please refer to http://[employer].MovieSet/ faq/Trichomonastma (This link is being provided for information/ educational purposes only.) ?? 08/02/2021 11:4 9 AM EDT Nicky Thibodeaux MD LAB PATHOLOGY ORDERABLES F inal Result Performing Organization Address City/[facility]/ZIP Co de Phone Number [facility] [address] * Pap Smear (08/02/2021 12:00 AM EDT) Swab Nicky Thibodeaux MD LAB CYTOLOGY ORDERABLES Fi nal Result Performing Organization Address City/[facility]/ZIP Co de Phone Number [facility] [address] [place] [phone] * Hm Colonoscopy (12/11/2015) Colonoscopy normal with Dr. Danny Norman us Historical Provider HEALTH MAINTENANCE Final Result from Last 3 Months or Most Recently Relevant to Health Maintenance [place] [facility] MEDICAID STAND ADULT Advance Directives Documents on File Type Date Recorded Patient Chief Of Internal Medicine Expl anation Advance Directives and Living Will 07/17/2023 Health Care Proxy 07/17/23 Care Teams Sfdc Architect Relationship Specialty Start Date End Date Costilla, MD Nicky [address] [place] [address] PCP - General Family Medicine 04/20/18 Wu Manzo MD [address] [place] [address] Pain Medicine 03/29/24 Na Orozco Payroll ConsultantMonotype Keyboard Operator 06/25/23 Latia Guardado PA-C [facility] 04/26/24
--- OUTSIDE RECORDS SUMMARY | 2024-05-18 17:11 | XMS_ITS | Encounter Summary ---
Author Organization [employer] Address [address] 7t [place] [address] Care Team Providers Care Quenching Car Operator Name Role Phone Nicky Thibodeaux MD Primary Care Provider +1- [phone] Wu Manzo MD Unavailable Encounter Details Date Type Department Care Team (Late st Contact Info) Description 2023 Orders Only [facility] MEDICINE 230 [place], [place] [phone] Nicky Thibodeaux MD 230 [place], [place] [phone] Social History Tobacco Use Types Packs/Day Years [...] documented as of this encounter Care Teams Quenching Car Operator Relationship Specialty Start Date End Date Nicky Thibodeaux MD [address] [place] [address] PCP - General Family Medicine 04/20/18 Wu Manzo MD [address] [place] [address] Drive [address] [place] [address] Pain Medicine 03/29/24 Na Orozco Environmental Services AssistantPress Bucker 06/25/23 TREASURE [facility] 04/26/24 documented as of this encounter
--- OUTSIDE RECORDS SUMMARY | 2024-05-18 17:11 | XMS_ITS | Encounter Summary ---
Author Organization [employer] Address [address] [facility] 7t [place] [address] Care Team Providers Care Automatic Profile Sander Operator Name Role Phone Nicky Thibodeaux MD Primary Care Provider +1- [phone] Wu Manzo MD Unavailable Reason for Visit * Reason Comments Med Refill Encounter Details Date Type Department Care Team (Late st Contact Info) Description 09/30/2022 Refill [facility] 230 [place] [address] Deborah Stratton MD 230 [place] [address] Chronic migraine without aura without status migrainosus, [...] suspected to have Coronavirus/COVID-19? No / Unsure 09/03/2022 11:16 AM EDT documented as of this encounter Plan of Treatment Not on file documented as of this encounter Visit Diagnoses Diagnosis Chronic migraine without aura without status migrainosus, not intractable documented in this encounter Additional Health Concerns Assessment Noted Time PHQ-9 Depression Total Score: 22 023 2:09 PM EDT documented as of this encounter Care Teams Automatic Profile Sander Operator Relationship Specialty Start Date End Date Nicky Thibodeaux MD [address] [place] [address] PCP - General Family Medicine 04/20/18 Wu Manzo MD [address] [place] [address] Drive [address] [place] [address] Pain Medicine 03/29/24 Na Orozco Machine SewerApplication Security Developer 06/25/23 Latia Guardado PA-C [facility] 04/26/24 documented as of this encounter
--- OUTSIDE RECORDS SUMMARY | 2024-05-18 17:11 | XMS_ITS | Encounter Summary ---
Author Organization [employer] Address [address] [facility] [address] 7t [place] [address] Care Team Providers Care Mass Spectrometry Specialist Name Role Phone Nicky Thibodeaux MD Primary Care Provider +1- [phone] Wu Manzo MD Unavailable Reason for Visit * Reason Comments Med Refill Encounter Details Date Type Department Care Team (Late st Contact Info) Description 04/27/2024 Refill [facility] MEDICINE 230 [place] [address] Nicky Thibodeaux MD 230 [place] [address] Pain Social History Tobacco Use Types Packs/Day [...] documented as of this encounter Care Teams Mass Spectrometry Specialist Relationship Specialty Start Date End Date Nicky Thibodeaux MD [address] [place] [address] PCP - General Family Medicine 04/20/18 Wu Manzo MD [address] [place] [address] Pain Medicine 03/29/24 Na Orozco Senior Business ManagerCarton Waxing Machine Operator 06/25/23 Latia Guardado PA-C [facility] 04/26/24 documented as of this encounter
== END 2024-05-18 15:38 | disposition home or self-care (01) ==
PROVIDERS: PCP Family Medicine; Visit Provider Anesthesiology
DX: G89.4 Chronic pain syndrome (principal); M96.1 Postlaminectomy syndrome, not elsewhere classified
CPT/HCPCS: 99215

== ENCOUNTER → 2024-05-18 15:09 | Outpatient (BNVA) | payer MEDICAID, SELFPAY | PROVIDERS: PCP Family Medicine; Visit Provider Anesthesiology | DX: M96.1 Postlaminectomy syndrome, not elsewhere classified (principal); G89.4 Chronic pain syndrome | CPT/HCPCS: 99212 ==

== ENCOUNTER 2024-05-27 18:36 | Emergency (ER) | payer MEDICAID, SELFPAY ==
--- NOTE | ~2024-05-27 | XR_ITS ---
CLINICAL HISTORY: trauma 4 view left wrist Comparison: None Findings: No fractures or dislocations. No significant arthritic change or erosions. No radiopaque foreign body. IMPRESSION: 1. No acute findings This document has been electronically signed by: Cory Tapia MD, PHD on 05/28/2024 01:11:57
[2024-05-27 19:28] VITALS: BP 144/82; PULSE 84; RESP 20; TEMP 36.3; O2SAT 98; BMI 33.3
--- NOTE | 2024-05-27 19:28 | ED.WOUNDLAC ---
HPI - Wound/Laceration General Chief Complaint: Wound/Laceration Stated Complaint: Lt wrist laceration Time Seen by Provider: 05/28/24 00:10 Source: patient Limitations: no limitations History of Present Illness HPI narrative: 58-year-old female presents for evaluation to a laceration to her left wrist. Patient states that she was attempting to cut a frozen ham when the knife slipped, causing her to accidentally strike the left wrist. She denies that this was intentional. Bleeding was controlled with direct pressure. Unknown last tetanus. Related Data Home Medications ?Medication ?Instructions ?Recorded ?Confirmed alprazolam 0.5 mg tablet (Xanax) 0.5 mg PO QID 07/23/20 04/25/24 lisinopril 10 mg tablet 10 mg PO BEDTIME 07/23/20 04/25/24 albuterol sulfate 90 mcg/actuation 2 puff inhalation Q6H PRN 08/21/20 04/25/24 aerosol inhaler (ProAir HFA) Shortness Of Breath Or Wheezing fluticasone propionate 220 1 puff inhalation BID 08/21/20 04/25/24 mcg/actuation HFA aerosol inhaler (Flovent HFA) tiotropium bromide 18 mcg capsule 1 cap inhalation DAILY 08/21/20 04/25/24 with inhalation device (Spiriva with HandiHaler) oxcarbazepine 600 mg tablet 600 mg PO BEDTIME 01/16/21 04/25/24 lamotrigine 200 mg tablet 200 mg PO BEDTIME 01/23/21 04/25/24 cholecalciferol (vitamin D3) 25 1 cap PO DAILY 01/29/21 04/25/24 mcg (1,000 unit) capsule (Vitamin D3) gabapentin 600 mg tablet 600 mg PO TID 01/29/21 04/25/24 lidocaine 5 % topical patch 1 patch topical DAILY PRN Pain 01/29/21 04/25/24 (Scale Score 1-3) omeprazole 20 mg capsule,delayed 1 cap PO DAILY@0630 01/29/21 04/25/24 release quetiapine 50 mg tablet 50 mg PO BEDTIME 01/29/21 04/25/24 sumatriptan succinate 50 mg tablet 50 mg PO DAILY PRN Migraine 01/29/21 04/25/24 Headache zolpidem 10 mg tablet 1 tab PO BEDTIME 01/29/21 03/29/24 atorvastatin 40 mg tablet 40 mg PO BEDTIME 10/08/23 04/25/24 cyclobenzaprine 10 mg tablet 10 mg PO PRN muscle pain 10/08/23 03/29/24 lidocaine-prilocaine 2.5 %-2.5 % topical 10/08/23 04/25/24 topical cream varenicline tartrate 1 mg tablet 1 mg PO BID 10/08/23 04/25/24 diclofenac sodium 75 mg 75 mg PO BID PRN 04/25/24 04/25/24 tablet,delayed release semaglutide (weight loss) 1.7 1.7 mg subcut QWEEK 04/25/24 04/25/24 mg/0.75 mL subcutaneous pen injector (Buddy) Previous Rx's ?Medication ?Instructions ?Recorded acetaminophen 325 mg tablet 650 mg (2 x 325 mg) PO Q6H PRN 02/01/21 Pain, Mild (Pain Scale 1-3) 30 days #240 tabs docusate sodium 100 mg capsule 100 mg PO BID 30 days #60 caps 02/19/21 baclofen 5 mg tablet 5 mg PO TID PRN muscle pain #10 04/18/24 tabs Allergies Allergy/AdvReac Type Severity Reaction Status Date / Time aspirin [ASPIRIN] Allergy Mild GI UPSET Verified 05/27/24 19:31 ibuprofen [IBUPROFEN] Allergy Mild GI UPSET Verified 05/27/24 19:31 Review of Systems Review of Systems: Laceration to left wrist Yes all other systems are reviewed and are negative [facility] Past Medical History Medical History Poor dentition Neck pain Low back pain Anxiety and depression History of panic attacks Chronic headaches Uses roller walker Nicotine dependence, cigarettes, uncomplicated (~1978) Hyperlipidemia History of TIA (transient ischemic attack) (~2019) Personal history of nicotine dependence (~1978) COPD (chronic obstructive pulmonary disease) Osteoarthritis of left hip Hypertension Surgical History History of appendectomy (~02/13/02) Status post total hip replacement, right (~04/26/13) Social History Social History Household Members: None Housing: Apartment Are you a primary assurance services manager health care to a significant other at home: No Do you presently have visiting nurse or other home services: No Comment: patient refused bed alarm Patient Tobacco Use Status: Current everyday Tobacco user Tobacco use type: Cigarette Cigarette Packs Per Day: 1 Cigarettes Per Day: 20.0 Years Smoked: 42 Second Hand Smoke Exposure: No Advance Directives: No Advance Directives Information Provided: Yes Do you have a plan to hurt others: No Plan Current occupational status: unemployed Current occupation: Right Handed Physical Exam Vital Signs: Vital Signs: Last Vital Signs Temp 98.1 F 05/28/24 00:25 Pulse 87 05/28/24 00:25 Resp 16 05/28/24 00:25 BP 138/80 05/28/24 00:25 Pulse Ox 98 05/28/24 00:25 O2 Del Method Room Air 05/28/24 00:25 BMI result Body Mass Index 33.3 Const: General: cooperative and alert Skin: Other: 2 cm linear laceration to the lateral aspect of the distal left radius. No active bleeding. Cutaneous tissue noted. Extrem: Other: Media Marketing Specialist is 5/5 bilaterally. Full range of motion of all digits. Capillary refills less than 2 seconds. Course Course Course Narrative: This is a rapid medical exam performed by Sobeida Beltran PA-C. The patient is a 58-year-old female who presents with laceration to left wrist. Patient states she was cooking, using a knife, and lacerated the left wrist. The wound is not bleeding at this time, it is linear, measures 4-5 cm in length. Tetanus up-to-date. The patient is stable and can return to the waiting room pending her full medical assessment. Reevaluation(s) Reevaluation #1: Patient tolerated procedure, see procedure note. Reviewed all discharge instructions. No further questions at this time. Medications Administered Discontinued Medications Generic Name Dose Route Start Last Admin Trade Name Freq PRN Reason Stop Dose Admin Bacitracin 1 appl 05/28/24 00:17 05/28/24 00:39 Bacitracin Oint 0.9 Gm Packet TOPICAL 05/28/24 00:18 1 appl ONCE ONE Administration Protocol Lidocaine/Epinephrine 10 ml 05/28/24 00:17 05/28/24 00:39 Lidocaine Hcl 1%/Epi 1:100,000 10 Ml Vial INFILTRATI 05/28/24 00:18 10 ml ONCE ONE Administration Medical Decision Making Medical Decision Making MDM Narrative: 58-year-old female status post accidental laceration to the left wrist. Check an x-ray. No evidence of tendon involvement. Update tetanus. Differential Diagnosis Differential Diagnoses: The differential diagnosis associated with the presentation includes Fracture Laceration Foreign body Abrasion Tendon injury, no evidence of Radiology Impression Discussion of test interpretation with radiology: I have reviewed the radiologist's reading. Radiologist Impression: [address] [address] XRay Report Signed Patient: Darcy Medina MR#: [id number] : 1965 Acct:[id number] Age/Sex: 58 / F ADM Date: 05/28/24 Loc: HO.ED Attending Dr: Ordering Physician: Parish Zuñiga Date of Service: 05/28/24 Procedure(s): XR wrist LT min 3V Accession Number(s): [id number] cc: Nicky Thibodeaux MD; Parish Zuñiga~ CLINICAL HISTORY: trauma 4 view left wrist Comparison: None Findings: No fractures or dislocations. No significant arthritic change or erosions. No radiopaque foreign body. IMPRESSION: 1. No acute findings This document has been electronically signed by: Cory Tapia MD, PHD on 05/28/2024 01:11:57 Dictated By: Cory Tapia MD Signed By: <Electronically signed by Cory Tapia MD in OV> 05/28/24111 DD/ 0 TD/TT: 05/28/24110 Drop Forge Operator: Procedures Laceration Laceration 1: Site: other (wrist) Side (If applicable): left Size (cm): 2.5 Description: linear Depth: simple, single layer Local Anesthetic: lidocaine 1% and with epi Amount of anesthesia used (mL): 2 Pre-repair: irrigated extensively Skin layer closed with: nylon Size (cm): 4-0 Number of sutures: 5 Technique: simple, interrupted Technique: other (Areas prepped and draped in the usual sterile fashion. Medications as directed. Good anesthesia achieved. Well approximation of wound edges. Sterile technique was maintained throughout. No immediate complications.) Discharge Plan Discharge Clinical Impression: Cut of left wrist Patient Disposition: Home, Self-Care Instructions: Laceration (ED) Additional Instructions: Keep the bandage on for the next 24 hours. You may then remove and clean gently with warm water and antibacterial soap. Pat dry. Apply antibiotic ointment and bandage. Return in 10-12 days for suture removal. Your tetanus shot was updated today. Follow-up with your primary care provider. Call this week to schedule a follow-up appointment. Return to the emergency department if you have any worsening of symptoms, or any concerns. Get well soon! Prescriptions: No Action docusate sodium 100 mg capsule 100 mg PO BID 30 Days Qty: 60 0RF oxcarbazepine 600 mg tablet 600 mg PO BEDTIME lamotrigine 200 mg tablet 200 mg PO BEDTIME zolpidem 10 mg tablet 1 tab PO BEDTIME quetiapine 50 mg tablet 50 mg PO BEDTIME gabapentin 600 mg tablet 600 mg PO TID omeprazole 20 mg capsule,delayed release(DR/EC) 1 cap PO DAILY@0630 cholecalciferol (vitamin D3) [Vitamin D3] 25 mcg (1,000 unit) capsule 1 cap PO DAILY sumatriptan succinate 50 mg tablet 50 mg PO DAILY PRN (Reason: Migraine Headache) lidocaine 5 % adhesive patch,medicated 1 patch topical DAILY PRN (Reason: Pain (Scale Score 1-3)) acetaminophen 325 mg Tablet 650 mg PO Q6H PRN (Reason: Pain, Mild (Pain Scale 1-3)) 30 Days Qty: 240 0RF baclofen 5 mg tablet 5 mg PO TID PRN (Reason: muscle pain) Qty: 10 0RF alprazolam [Xanax] 0.5 mg tablet 0.5 mg PO QID lisinopril 10 mg tablet 10 mg PO BEDTIME Flovent HFA 220 mcg/actuation HFA aerosol inhaler 1 puff inhalation BID albuterol sulfate [ProAir HFA] 90 mcg/actuation HFA aerosol inhaler 2 puff inhalation Q6H PRN (Reason: Shortness Of Breath Or Wheezing) Spiriva with HandiHaler 18 mcg capsule, w/inhalation device 1 cap inhalation DAILY Rx Instructions: puncture 1 cap using device; one dose = 2 inhalations atorvastatin 40 mg tablet 40 mg PO BEDTIME varenicline tartrate 1 mg tablet 1 mg PO BID cyclobenzaprine 10 mg tablet 10 mg PO PRN (Reason: muscle pain) lidocaine-prilocaine 2.5-2.5 % cream topical Wegovy 1.7 mg/0.75 mL pen injector 1.7 mg subcut QWEEK diclofenac sodium 75 mg tablet,delayed release (DR/EC) 75 mg PO BID PRN Print Language: Arabic
[2024-05-28 00:25] VITALS: BP 138/80; PULSE 87; RESP 16; TEMP 36.7; O2SAT 98
[2024-05-28] MEDS: Bacitracin Oint 0.9 GM PACKET 1 APPL TOPICAL (00:39)
[2024-05-28] MEDS: Lidocaine HCl 1%/Epi 1:100,000 10 ML VIAL INFILTRATI (00:39)
[2024-05-28] MEDS: Diphth,Pertus(ACell),Tet Adult 0.5 ML SYRINGE IM (01:48)
[2024-05-28 02:03] VITALS: BP 138/80; PULSE 87; RESP 16; TEMP 36.7; O2SAT 98
== END 2024-05-28 01:50 | disposition home or self-care (01) ==
PROVIDERS: Emergency Provider Emergency Medicine; PCP Family Medicine
DX: S61.512A Laceration without foreign body of left wrist, initial encounter (principal); W26.0XXA Contact with knife, initial encounter; Y93.G1 Activity, food preparation and clean up; Y92.030 Kitchen in apartment as the place of occurrence of the external cause; Y99.9 Unspecified external cause status; Z23 Encounter for immunization
CPT/HCPCS: 12001; 73110; 90471; 90715; 99283; 99284; J2004

== ENCOUNTER → 2024-05-28 00:45 | Outpatient (BNV) | payer MEDICAID, SELFPAY | PROVIDERS: Emergency Provider Emergency Medicine; PCP Family Medicine; Visit Provider General Practice | DX: S61.512A Laceration without foreign body of left wrist, initial encounter (principal); W26.0XXA Contact with knife, initial encounter | CPT/HCPCS: 73110 ==

== ENCOUNTER 2024-07-26 06:24 | Outpatient (REF) | payer MEDICAID, SELFPAY ==
--- NOTE | ~2024-07-26 | FL_ITS ---
EXAMINATION: FL GUIDANCE ONLY HISTORY: G89.4 - Chronic pain syndrome COMPARISON: None available. TECHNIQUE: Fluoroscopy time: 10 seconds. Cumulative Dose: 6.4906 mGy. DAP: 2.0217 mGym2 Images: 2. FINDINGS: AP and lateral fluoroscopic spot films of the lumbar spine demonstrate a needle at the L2-3 level. FL/FL guidance in treatment room IMPRESSION: Fluoroscopy during procedure. Please see procedure report for additional information. Electronically signed by: Calvin Grimes MD 07/26/2024 01:58 PM EDT
--- OUTSIDE RECORDS SUMMARY | 2024-07-26 06:27 | XMS_ITS | Encounter Summary ---
Author Organization [employer] Address [address] [facility] 7t [place] [address] Care Team Providers Care Concrete Paving Supervisor Name Role Phone Nicky Thibodeaux MD Primary Care Provider [phone]- [phone] Wu Manzo MD Unavailable Feroz Ascencio MD Unavailable [phone] Reason for Visit * Reason Comments Med Refill Encounter Details Date Type Department Care Team ([facility] Contact Info) Description 08/26/2022 Refill [facility]EDS [address] [place] [address] Nicky Thibodeaux MD [address] [place] [address] Pain Social History Tobacco Use Types Packs/Day [...] as of this encounter Plan of Treatment Upcoming Encounters Date Type Department Care Team ([facility] Contact Info) Description 09/14/2024 11:30 AM EDT Telemedicine [facility] MEDICINE 230 [place] [address] Nicky Thibodeaux MD [address] [place] [address] documented as of this encounter Visit Diagnoses Diagnosis Pain Generalized pain documented in this encounter Additional Health Concerns Assessment Noted Time PHQ-9 Depression Total Score: 22 023 2:09 PM EDT documented as of this encounter Care Teams Concrete Paving Supervisor Relationship Specialty Start Date End Date Nicky Thibodeaux MD [address] [place] [address] PCP - General Family Medicine 04/20/18 Wu Manzo MD [address] [place] [address] Drive [address] [place] [address] Pain Medicine 03/29/24 Feroz Ascencio MD [address] [place] [phone] Orthopaedic Surgery 06/15/24 Na Orozco Director [employer] BlindRewinder 06/25/23 TREASURE [facility] 04/26/24 documented as of this encounter
--- OUTSIDE RECORDS SUMMARY | 2024-07-26 06:27 | XMS_ITS | Encounter Summary ---
Author Organization [employer] Address [address] [facility] [address] [address] 7t [place] [address] Care Team Providers Care Starcher And Tenter Range Feeder Name Role Phone Nicky Thibodeaux MD Primary Care Provider [phone]- [phone] Wu Manzo MD Unavailable Feroz Ascencio MD Unavailable [phone] Reason for Visit * Reason Comments Med Refill Encounter Details Date Type Department Care Team ([facility] st Contact Info) Description 04/29/2023 Refill [facility] MEDICINE 230 [place] [address] Chelsi Canseco ANP 230 [place], [place] [phone] Social History Tobacco Use Types Packs/Day Years [...] Upcoming Encounters Date Type Department Care Team (Late st Contact Info) Description 09/14/2024 11:30 AM EDT Telemedicine [facility] MEDICINE [address] [place] [address] Nicky Thibodeaux MD 230 [place] [address] documented as of this encounter Visit Diagnoses Not on filedocumented in this encounter Additional Health Concerns Assessment Noted Time PHQ-9 Depression Total Score: 22 023 2:09 PM EDT documented as of this encounter Care Teams Starcher And Tenter Range Feeder Relationship Specialty Start Date End Date Nicky Thibodeaux MD 230 [place] [address] PCP - General Family Medicine 04/20/18 Wu Manzo MD [address] [place] [address] Pain Medicine 03/29/24 Feroz Ascencio MD [address] [place] [phone] Orthopaedic Surgery 06/15/24 Na Orozco Jr. Systems AdministratorScrew Cutter 06/25/23 Latia Guardado PA-C [facility] 04/26/24 documented as of this encounter
--- OUTSIDE RECORDS SUMMARY | 2024-07-26 06:27 | XMS_ITS | Encounter Summary ---
Author Organization [employer] Address [address] [facility] [address] 7t [place] [address] Care Team Providers Care Precast Molder Name Role Phone Nicky Thibodeaux MD Primary Care Provider [phone]- [phone] Wu Manzo MD Unavailable Feroz Ascencio MD Unavailable [phone] Encounter Details Date Type Department Care Team ([facility] st Contact Info) Description 03/11/2023 Abstract [facility] MEDICINE [address] [place], [place] [phone] Thuy Valenzuela Social History Tobacco Use Types [...] Info) Description 09/14/2024 11:30 AM EDT Telemedicine [facility] MEDICINE [address] [place] [address] Nicky Thibodeaux MD 230 [place] [address] documented as of this encounter Visit Diagnoses Not on filedocumented in this encounter Additional Health Concerns Assessment Noted Time PHQ-9 Depression Total Score: 22 023 2:09 PM EDT documented as of this encounter Care Teams Precast Molder Relationship Specialty Start Date End Date Nicky Thibodeaux MD [address] [place] [address] PCP - General Family Medicine 04/20/18 Wu Manzo MD [address] [place] [address] Drive [address] [place] [address] Pain Medicine 03/29/24 Feroz Ascencio MD [address] [place] [place] [phone] Orthopaedic Surgery 06/15/24 Na Orozco Physical Science AideFloor Worker 06/25/23 Latia Guardado PA-C [facility] 04/26/24 documented as of this encounter
--- OUTSIDE RECORDS SUMMARY | 2024-07-26 06:27 | XMS_ITS | Encounter Summary ---
Author Organization [employer] Address [address] [facility] [address] 7t [place] [address] Care Team Providers Care Transport Operations Inspector Name Role Phone Nicky Thibodeaux MD Primary Care Provider [phone]- [phone] Wu Manzo MD Unavailable Feroz Ascencio MD Unavailable [phone] Reason for Visit * Reason Onset Date Comments PA 10/12/2023 Encounter Details Date Type Department Care Team ([facility] st Contact Info) Description 10/12/2023 Telephone [facility] MEDICINE 230 [place], [place] [phone] Nicky Thibodeaux MD 230 [place], [place] [phone] PA Social History Tobacco Use Types Packs/Day [...] documented in this encounter Plan of Treatment Upcoming Encounters Date Type Department Care Team (Late st Contact Info) Description 09/14/2024 11:30 AM EDT Telemedicine [facility] MEDICINE [address] [place] [address] Nicky Thibodeaux MD [address] [place] [address] documented as of this encounter Visit Diagnoses Not on filedocumented in this encounter Additional Health Concerns Assessment Noted Time PHQ-9 Depression Total Score: 22 023 2:09 PM EDT documented as of this encounter Care Teams Transport Operations Inspector Relationship Specialty Start Date End Date Nicky Thibodeaux MD 230 [place] [address] PCP - General Family Medicine 04/20/18 Wu Manzo MD [address] [place] [address] Pain Medicine 03/29/24 Feroz Ascencio MD [address] [place] [phone] Orthopaedic Surgery 06/15/24 Na Orozco Career Resource TechnicianParts Finisher 06/25/23 TREASURE [facility] 04/26/24 documented as of this encounter
--- OUTSIDE RECORDS SUMMARY | 2024-07-26 06:27 | XMS_ITS | Encounter Summary ---
Author Organization [employer] Address [address] [facility] [address] [place] [address] Care Team Providers Care Tier Over Name Role Phone Nicky Thibodeaux MD Primary Care Provider [phone] Wu Manzo MD Unavailable Feroz Ascencio MD Unavailable Reason for Visit * Reason Onset Date Comments Med Refill 04/29/2023 Encounter Details Date Type Department Care Team (Late st Contact Info) Description 04/29/2023 Telephone [facility] MEDICINE 230 [place], [place] [phone] Nicky Thibodeaux MD 230 [place], [place] [phone] Med Refill Social History Tobacco Use Types [...] 500 MG tablet To be sent to: [facility]/pharmacy #[id number] documented in this encounter Plan of Treatment Upcoming Encounters Date Type Department Care Team (Late st Contact Info) Description 09/14/2024 11:30 AM EDT Telemedicine [facility] MEDICINE [address] [place] [address] Nicky Thibodeaux MD [address] [place] [address] documented as of this encounter Visit Diagnoses Not on filedocumented in this encounter Additional Health Concerns Assessment Noted Time PHQ-9 Depression Total Score: 22 023 2:09 PM EDT documented as of this encounter Care Teams Tier Over Relationship Specialty Start Date End Date Nicky Thibodeaux MD 230 [place] [address] PCP - General Family Medicine 04/20/18 Wu Manzo MD [address] [place] [address] Drive [address] [place] [address] Pain Medicine 03/29/24 Feroz Ascencio MD [address] [place] [phone] Orthopaedic Surgery 06/15/24 Na Orozco Bottom WheelerRehabilitation Program Coordinator 06/25/23 Latia Guardado PA-C [facility] 04/26/24 documented as of this encounter
--- OUTSIDE RECORDS SUMMARY | 2024-07-26 06:27 | XMS_ITS | Encounter Summary ---
Author Organization [employer] Address [address] [facility] 7t [place] [address] Care Team Providers Care Water Carter Name Role Phone Nicky Thibodeaux MD Primary Care Provider [phone]- [phone] Wu Manzo MD Unavailable Feroz Ascencio MD Unavailable [phone] Reason for Visit * Reason Comments Med Refill Encounter Details Date Type Department Care Team (Late st Contact Info) Description 09/30/2022 Refill [facility] 230 [place] [address] Deborah Stratton MD 230 [place] [address] Chronic migraine without aura without status migrainosus, [...] Info) Description 09/14/2024 11:30 AM EDT Telemedicine [facility] 230 [place] [address] Nicky Thibodeaux MD [address] [place] [address] documented as of this encounter Visit Diagnoses Diagnosis Chronic migraine without aura without status migrainosus, not intractable documented in this encounter Additional Health Concerns Assessment Noted Time PHQ-9 Depression Total Score: 22 023 2:09 PM EDT documented as of this encounter Care Teams Water Carter Relationship Specialty Start Date End Date Nicky Thibodeaux MD [address] [place] [address] PCP - General Family Medicine 04/20/18 Wu Manzo MD [address] [place] [address] Drive [address] [place] [address] Pain Medicine 03/29/24 Feroz Ascencio MD [address] [place] [phone] Orthopaedic Surgery 06/15/24 Na Orozco Sales SupervisorJewelry Salesperson 06/25/23 TREASURE [facility] 04/26/24 documented as of this encounter
--- OUTSIDE RECORDS SUMMARY | 2024-07-26 06:27 | XMS_ITS | Encounter Summary ---
Author Organization [employer] Address [address] [facility] [address] 7t [place] [address] Care Team Providers Care Box Spring Upholsterer Name Role Phone Nicky Thibodeaux MD Primary Care Provider +1- [phone] Wu Manzo MD Unavailable Feroz Ascencio MD Unavailable [phone] Reason for Visit * Reason Comments Med Refill Encounter Details Date Type Department Care Team (Late st Contact Info) Description 05/19/2023 Refill [facility] MEDICINE 230 [place] [address] Nicky Thibodeaux MD 230 [place], [place] [phone] Asthma, unspecified asthma severity, unspecified whether complicated, [...] 09/14/2024 11:30 AM EDT Telemedicine [facility] MED[facility]INE [address] [place] [address] Nicky Thibodeaux MD [address] [place] [address] documented as of this encounter Visit Diagnoses Diagnosis Asthma, unspecified asthma severity, unspecified whether complicated, unspecified whether persistent documented in this encounter Additional Health Concerns Assessment Noted Time PHQ-9 Depression Total Score: 22 023 2:09 PM EDT documented as of this encounter Care Teams Box Spring Upholsterer Relationship Specialty Start Date End Date Nicky Thibodeaux MD [address] [place] [address] PCP - General Family Medicine 04/20/18 Wu Manzo MD [address] [facility] [address] [place] [phone] Pain Medicine 03/29/24 Feroz Ascencio MD [address] [place] [phone] Orthopaedic Surgery 06/15/24 Na Orozco Underground Mine Machinery MechanicCooperage Shop Supervisor 06/25/23 Latia Guardado PA-C [facility] 04/26/24 documented as of this encounter
--- OUTSIDE RECORDS SUMMARY | 2024-07-26 06:27 | XMS_ITS | Encounter Summary ---
Author Organization [employer] Address [address] [facility] 7t [place] [address] Care Team Providers Care Grapple Skidder Operator Name Role Phone Nicky Thibodeaux MD Primary Care Provider [phone]- [phone] Wu Manzo MD Unavailable Feroz Ascencio MD Unavailable [phone] Reason for Visit * Reason Comments Med Refill Encounter Details Date Type Department Care Team (Late st Contact Info) Description 04/09/2023 Refill [facility] MED[facility]INE 230 [place] [address] Nicky Thibodeaux MD 230 [place] [address] Pain Social History Tobacco Use Types Packs/Day [...] Info) Description 09/14/2024 11:30 AM EDT Telemedicine [facility] MEDICINE [address] [place] [address] Nicky Thibodeaux MD 230 [place] [address] documented as of this encounter Visit Diagnoses Diagnosis Pain Generalized pain documented in this encounter Additional Health Concerns Assessment Noted Time PHQ-9 Depression Total Score: 22 023 2:09 PM EDT documented as of this encounter Care Teams Grapple Skidder Operator Relationship Specialty Start Date End Date Nicky Thibodeaux MD 230 [place] [address] PCP - General Family Medicine 04/20/18 Wu Manzo MD [address] [place] [address] Pain Medicine 03/29/24 Feroz Ascencio MD [address] [place] [phone] Orthopaedic Surgery 06/15/24 Na Orozco Police Lieutenant PrecinctMining Engineer 06/25/23 Latia Guardado PA-C [facility] 04/26/24 documented as of this encounter
--- OUTSIDE RECORDS SUMMARY | 2024-07-26 06:27 | XMS_ITS | Encounter Summary ---
Author Organization [employer] Address [address] [facility] [address] 7t [place] [address] Care Team Providers Care Lens Finisher Name Role Phone Nicky Thibodeaux MD Primary Care Provider [phone]- [phone] Wu Manzo MD Unavailable Feroz Ascencio MD Unavailable Reason for Visit * Reason Onset Date Comments ER Follow-up 05/30/2024 Encounter Details Date Type Department Care Team (Late st Contact Info) Description 05/30/2024 Telephone [facility]INE 230 [place] [address] Nicky Thibodeaux MD 230 [place] [address] ER Follow-up Social History Tobacco Use Types Packs/Day Years [...] encounter Miscellaneous Notes * Telephone Encounter - Regine Neely RN - 05/31/2024 1:33 PM EST Telephone call to pt to advise per PCP no need for antibiotics unless she develops fever, swelling,redness, pus. Pt verbalized understanding. Stated last night she also cut off tiny bit of tip of left middle finger. States there was a fairamount of bleeding yesterday but denies bleeding now, has it wrapped. Strongly advised pt to go to walk in clinic or ED, pt declined, expressed frustration with having spent 7 hours at ED a few days ago. Advised her that its important for doctor to assess and evaluate the finger to see if anything else was damaged, if stitches are needed, to bandage it, etc. Strongly advised to come to [facility], gave extended hours today, pt declined, stated she has to go to a store now and stated has no ride, ad copy writer offered pt Uber, pt again declined and stated I'll see how it looks later today or tomorrow and think about it. Advised her to call back if anything changes. Will task to status check tomorrow. -- Dr Thibodeaux No need for antibiotics but if develops swelling, increased redness of puss, come in for wound culture, evaluation and antibiotics. Thank you. * Telephone Encounter - Regine Neely RN - 05/30/2024 2:30 PM EST Pt went to [facility] on 05/27/24 for laceration to left wrist. Pt reports doing okay but is concerned that she was not given any antibiotics in the ED and is concerned because of all the hardware I have,they usually give antibiotics. She asked for message to be sent to PCP for review, advised her anyupdate will be communicated back to pt. Per ED note, pt due for stitch removal 06/06-06/08. Scheduled for nurse visit on 06/07/24. Advised pt to return to ED if any signs or symptoms of infection appear: fever, pus, odor, warmth, or stitches opening. Pt verbalized understanding, stated she will not return to ED after waiting for 7 hours. Re- advised her of importance of seeking care. No further questions. * Telephone Encounter - Fly Rosas - 05/30/2024 1:16 PM EST Patient calling to report ED visit on : Date: 05/27/24 Hospital: [facility] Seen for: Injury on hand Pt received about 7 stitches and removal of them to be around the 10 day deana . Pt concerned whether she should be on any antibiotics/ states not infected but usually gets antibiotics for any shots or dental work she gets done . Patient advised will forward to team nurse for follow up documented in this encounter Plan of Treatment Upcoming Encounters Date Type Department Care Team (Late st Contact Info) Description 09/14/2024 11:30 AM EDT Telemedicine [facility] 230 [place] [address] Nicky Thibodeaux MD 230 [place] [address] documented as of this encounter Visit Diagnoses Not on filedocumented in this encounter Additional Health Concerns Assessment Noted Time PHQ-9 Depression Total Score: 14 03/14/2 024 10:51 AM EST documented as of this encounter Care Teams Lens Finisher Relationship Specialty Start Date End Date Nicky Thibodeaux MD 230 [place] [address] PCP - General Family Medicine 04/20/18 Wu Manzo MD [address] [place] [address] Pain Medicine 03/29/24 Feroz Ascencio MD [address] [place] [phone] Orthopaedic Surgery 06/15/24 Na Orozco Lath TierBoatbuilder Wood 06/25/23 TREASURE [facility] 04/26/24 documented as of this encounter
--- OUTSIDE RECORDS SUMMARY | 2024-07-26 06:27 | XMS_ITS | Encounter Summary ---
Author Organization [employer] Address [address] [facility] [address] 7t [place] [address] Care Team Providers Care Field Marketing Team Leader Name Role Phone Nicky Thibodeaux MD Primary Care Provider [phone]- [phone] Wu Manzo MD Unavailable Feroz Ascencio MD Unavailable [phone] Reason for Visit * Reason Comments Med Refill Encounter Details Date Type Department Care Team (Late st Contact Info) Description 05/26/2024 Refill [facility] MED[facility] 230 [place] [address] Nicky Thibodeaux MD 230 [place] [address] Pain Social History Tobacco Use Types Packs/Day [...] Info) Description 09/14/2024 11:30 AM EDT Telemedicine [facility] MED[facility]INE 230 [place] [address] Nicky Thibodeaux MD 230 [place] [address] documented as of this encounter Visit Diagnoses Diagnosis Pain Generalized pain documented in this encounter Additional Health Concerns Assessment Noted Time PHQ-9 Depression Total Score: 14 024 10:51 AM EST documented as of this encounter Care Teams Field Marketing Team Leader Relationship Specialty Start Date End Date Nicky Thibodeaux MD 230 [place] [address] PCP - General Family Medicine 04/20/18 Wu Manzo MD [address] [place] [address] Pain Medicine 03/29/24 Feroz Ascencio MD [address] [place] [phone] Orthopaedic Surgery 06/15/24 Na Orozco Supply Requirements OfficerHostess Host 06/25/23 TREASURE [facility] 04/26/24 documented as of this encounter
--- OUTSIDE RECORDS SUMMARY | 2024-07-26 06:27 | XMS_ITS | Encounter Summary ---
Author Organization [employer] Address 75 [facility] 7t [place] [address] Care Team Providers Care Sales Support Rep Name Role Phone Nicky Thibodeaux MD Primary Care Provider [phone]- [phone] Wu Manzo MD Unavailable Feroz Ascencio MD Unavailable [phone] Reason for Visit * Reason Onset Date Comments Durable Medical Equipment 08/07/2022 Encounter Details Date Type Department Care Team (Late st Contact Info) Description 08/07/2022 Telephone [facility] MEDICINE 230 [place], [place] [phone] Nicky Thibodeaux MD 230 [place], [place] [phone] Durable Medical Equipment Social History Tobacco Use [...] faxed back * Telephone Encounter - Armin Figueroaos - 08/14/2022 9:23 AM EDT Tc from [facility] requesting status on a form send over for [facility]. Please contact Renzo at [phone] * Telephone Encounter - Wellington Smith - 08/07/2022 9:57 AM EDT Tc from [facility] with [facility] requesting a status on a form sent over for a [facility] Grab bar. Please contact renzo at [phone] documented in this encounter Plan of Treatment Upcoming Encounters Date Type Department Care Team (Late st Contact Info) Description 09/14/2024 11:30 AM EDT Telemedicine [facility] MEDICINE [address] [place] [address] Nicky Thibodeaux MD 230 [place] [address] documented as of this encounter Visit Diagnoses Not on filedocumented in this encounter Additional Health Concerns Assessment Noted Time PHQ-9 Depression Total Score: 22 023 2:09 PM EDT documented as of this encounter Care Teams Sales Support Rep Relationship Specialty Start Date End Date Nicky Thibodeaux MD [address] [place] [address] PCP - General Family Medicine 04/20/18 Wu Manzo MD [address] [facility] [place] [address] Pain Medicine 03/29/24 Feroz Ascencio MD [address] [place] [phone] Orthopaedic Surgery 06/15/24 Na Orozco Public Address System InstallerMill Representative 06/25/23 TREASURE [facility] 04/26/24 documented as of this encounter
--- OUTSIDE RECORDS SUMMARY | 2024-07-26 06:27 | XMS_ITS | Encounter Summary ---
Author Organization [employer] Address 75 [facility] 7t [place] [address] Care Team Providers Care Training Officer Name Role Phone Nicky Thibodeaux MD Primary Care Provider [phone]- [phone] Wu Manzo MD Unavailable Feroz Ascencio MD Unavailable [phone] Encounter Details Date Type Department Care Team ([facility] Contact Info) Description 08/12/2022 Orders Only [facility] MEDICINE 230 [place] [address] Nicky Thibodeaux MD 230 [place], [place] [phone] Social History Tobacco Use Types Packs/Day Years [...] Upcoming Encounters Date Type Department Care Team ([facility] Contact Info) Description 09/14/2024 11:30 AM EDT Telemedicine [facility] MEDICINE 230 [place] [address] Nicky Thibodeaux MD 230 [place] [address] documented as of this encounter Visit Diagnoses Not on filedocumented in this encounter Additional Health Concerns Assessment Noted Time PHQ-9 Depression Total Score: 22 023 2:09 PM EDT documented as of this encounter Care Teams Training Officer Relationship Specialty Start Date End Date Nicky Thibodeaux MD 230 [place] [address] PCP - General Family Medicine 04/20/18 Wu Manzo MD [address] [place] [address] [address] [place] [address] Pain Medicine 03/29/24 Feroz Ascencio MD [address] [place] [phone] Orthopaedic Surgery 06/15/24 Na Orozco Bus EscortNail Artist 06/25/23 Latia Guardado PA-C [facility] 04/26/24 documented as of this encounter
--- OUTSIDE RECORDS SUMMARY | 2024-07-26 06:27 | XMS_ITS | Encounter Summary ---
Author Organization [employer] Address [address] [place] [address] 7t [place] [address] Care Team Providers Care Fish Cutter Name Role Phone Nicky Thibodeaux MD Primary Care Provider [phone]- [phone] Wu Manzo MD Unavailable Feroz Ascencio MD Unavailable [phone] Encounter Details Date Type Department Care Team (Late st Contact Info) Description 05/05/2022 Abstract [facility] MEDICINE [address] [place] [address] [phone] Nicky Thibodeaux MD [address] [place] [address] [phone] Social History Tobacco Use Types Packs/Day Years [...] Info) Description 09/14/2024 11:30 AM EDT Telemedicine [facility] MEDICINE [address] [place] [address] [phone] Nicky Thibodeaux MD [address] [place] [address] [phone] documented as of this encounter Procedures Procedure Name Priority Date/Time Associated Diagnosis Comments COLPOSCOPY Routine 09/11/2021 12:00 AM EDT PAP SMEAR Routine 08/02/2021 12:00 AM EDT MAMMOGRAPHY Routine 10/29/2020 COLONOSCOPY Routine 12/11/2015 documented in this encounter Results * Colposcopy (09/11/2021 12:00 AM EDT) Historical Provider IN CLINIC/BEDSIDE ORDERAB LES Final Result Performing Organization Address [facility]/ZIP Co de Phone Number [facility] [address] [place] [address] [phone] * Pap Smear (08/02/2021 12:00 AM EDT) Swab Nicky Thibodeaux MD LAB CYTOLOGY ORDERABLES Fi nal Result Performing Organization Address [facility]/ZIP Co de Phone Number [facility] [address] [place] [address] [phone] * Mammography (10/29/2020) Mammogram BIRADS 2 Anatomical Region Laterality Modality Other Historical Provider HEALTH MAINTENANCE Final Result * Colonoscopy (12/11/2015) Colonoscopy normal with Dr. Delgado Historical Provider HEALTH MAINTENANCE Final Result documented in this encounter Visit Diagnoses Not on filedocumented in this encounter Care Teams Fish Cutter Relationship Specialty Start Date End Date Nicky Thibodeaux MD [address] [place] [address] PCP - General Family Medicine 04/20/18 uW [address] [place] [address] Pain Medicine 03/29/24 Feroz Ascencio MD [address] [place] [phone] Orthopaedic Surgery 06/15/24 Na Sherried Vehicle Controls EngineerScript Reader 06/25/23 TREASURE [facility] 04/26/24 documented as of this encounter
--- OUTSIDE RECORDS SUMMARY | 2024-07-26 06:27 | XMS_ITS | Encounter Summary ---
Author Organization [employer] Address [address] [facility] [address] 7t [place] [address] Care Team Providers Care Human Resources File Clerk Name Role Phone Nicky Thibodeaux MD Primary Care Provider [phone]- [phone] Wu Manzo MD Unavailable Feroz Ascencio MD Unavailable [phone] Encounter Details Date Type Department Care Team ([facility] st Contact Info) Description 2023 Orders Only [facility] MEDICINE 230 [place], [place] [phone] Nicky Thibodeaux MD [address] [place], [place] [phone] Social History Tobacco Use Types Packs/Day Years [...] Info) Description 09/14/2024 11:30 AM EDT Telemedicine [facility] MED[facility]INE [address] [place] [address] Nicky Thibodeaux MD [address] [place] [address] documented as of this encounter Visit Diagnoses Not on filedocumented in this encounter Additional Health Concerns Assessment Noted Time PHQ-9 Depression Total Score: 22 023 2:09 PM EDT documented as of this encounter Care Teams Human Resources File Clerk Relationship Specialty Start Date End Date Nicky Thibodeaux MD 230 [place] [address] PCP - General Family Medicine 04/20/18 Wu Manzo MD [address] [place] [address] Pain Medicine 03/29/24 Feroz Ascencio MD [address] [place] [phone] Orthopaedic Surgery 06/15/24 Na Orozco Boiler MechanicCommercial Coordinator 06/25/23 Latia Guardado PA-C [facility] 04/26/24 documented as of this encounter
--- OUTSIDE RECORDS SUMMARY | 2024-07-26 06:27 | XMS_ITS | Encounter Summary ---
Author Organization [employer] Address [address] [place] [address] 7t [place] [address] Care Team Providers Care Offensive Coordinator Name Role Phone Nicky Thibodeaux MD Primary Care Provider [phone]- [phone] Wu Manzo MD Unavailable Feroz Ascencio MD Unavailable [phone] Encounter Details Date Type Department Care Team (Late Contact Info) Description 05/22/2022 Orders Only [facility] MEDICINE [address] [place] [address] [phone] Nereida Horner LPN Social History Tobacco Use [...] Encounters Date Type Department Care Team (Late Contact Info) Description 09/14/2024 11:30 AM EDT Telemedicine [facility] MEDICINE [address] [place] [address] [phone] Nicky Thibodeaux MD [address] [place], [place] [phone] documented as of this encounter Visit Diagnoses Not on filedocumented in this encounter Care Teams Offensive Coordinator Relationship Specialty Start Date End Date Nicky Thibodeaux MD [address] [place] [address] [phone] PCP - General Family Medicine 04/20/18 Wu Manzo MD [address] [facility] [address] [place] [address] Pain Medicine 03/29/24 Feroz Ascencio MD [address] [place] [phone] Orthopaedic Surgery 06/15/24 Na Orozco Fibre Composite TechnicianCopper Miner Blasting 06/25/23 TREASURE [facility] 04/26/24 documented as of this encounter
--- OUTSIDE RECORDS SUMMARY | 2024-07-26 06:27 | XMS_ITS | Encounter Summary ---
Author Organization [employer] Address [address] [place] [address] 7t [place] [address] Care Team Providers Care Broadcast Designer Name Role Phone Nicky Thibodeaux MD Primary Care Provider [phone]- [phone] Wu Manzo MD Unavailable Feroz Ascencio MD Unavailable [phone] Reason for Visit * Reason Comments Med Refill Encounter Details Date Type Department Care Team (Late st Contact Info) Description 2022 Refill [facility] [address] [place] [address] [phone] Krystin Frederick, GRACIELA [address] [place] [address] Dept [place] [address] Chronic migraine without aura without status migrainosus, [...] Info) Description 09/14/2024 11:30 AM EDT Telemedicine [facility]INE 230 [place], [place] [phone] Nicky Thibodeaux MD [address] [place], [place] [phone] documented as of this encounter Visit Diagnoses Diagnosis Chronic migraine without aura without status migrainosus, not intractable documented in this encounter Care Teams Broadcast Designer Relationship Specialty Start Date End Date Mcdowell, MD Nicky 230 [place] [address] PCP - General Family Medicine 04/20/18 Wu Manzo MD [address] [place] [address] Pain Medicine 03/29/24 Feroz Ascencio MD [address] [place] [phone] Orthopaedic Surgery 06/15/24 Na Orozco Senior Systems AnalystSupervisor Self Service Store 06/25/23 TREASURE [facility] 04/26/24 documented as of this encounter
--- OUTSIDE RECORDS SUMMARY | 2024-07-26 06:28 | XMS_ITS | Encounter Summary ---
Author Organization [employer] Address [address] [place] [address] 7t [place] [address] Care Team Providers Care Special Investigation Unit Investigator Name Role Phone Nicky Thibodeaux MD Primary Care Provider [phone]- [phone] Wu Manzo MD Unavailable Feroz Ascencio MD Unavailable [phone] Reason for Visit * Reason Comments Med Refill Encounter Details Date Type Department Care Team (Late Contact Info) Description 12/11/2022 Refill [facility] [address] [place] [address] [phone] Nicky Thibodeaux MD [address] [place] [address] [phone] Social History Tobacco Use Types Packs/Day Years [...] Info) Description 09/14/2024 11:30 AM EDT Telemedicine [facility] [address] [place] [address] [phone] Nicky Thibodeaux MD 230 [place], [place] [phone] documented as of this encounter Visit Diagnoses Not on filedocumented in this encounter Additional Health Concerns Assessment Noted Time PHQ-9 Depression Total Score: 22 023 2:09 PM EDT documented as of this encounter Care Teams Special Investigation Unit Investigator Relationship Specialty Start Date End Date Nicky Thibodeaux MD [address] [place] [address] PCP - General Family Medicine 04/20/18 Wu Manzo MD [address] [place] [address] Drive [address] [place] [address] Pain Medicine 03/29/24 Feroz Ascencio MD [address] [place] [phone] Orthopaedic Surgery 06/15/24 Na Orozco Bean Picker Machine OperatorMainspring Former 06/25/23 TREASURE [facility] 04/26/24 documented as of this encounter
--- OUTSIDE RECORDS SUMMARY | 2024-07-26 06:28 | XMS_ITS | Encounter Summary ---
Author Organization [employer] Address [address] [place] [address] Care Team Providers Care Low Heel Builder Name Role Phone Nicky Thibodeaux MD Primary Care Provider [phone] Wu Manzo MD Unavailable Feroz Ascencio MD Unavailable [phone] Reason for Visit * Reason Onset Date Comments Pre-visit Planning 11/09/2023 Encounter Details Date Type Department Care Team (Late st Contact Info) Description 11/09/2023 Telephone [facility] [address] [place] [address] Nicky Thibodeaux MD [address] [place] [address] Pre-visit Planning Social History Tobacco Use Types Packs/Day Years Used Date Smoking Tobacco: Every Day Cigarettes Passive Smoke Exposure: Current Smokeless Tobacco: Never Depression Answer Date Recorded Patient Health Questionnaire-9 Score 22 07/30/2022 Housing Stability Answer Date Recorded What is your housing situation today? I have ury pizano 11/09/[address] you [...] Info) Description 09/14/2024 11:30 AM EDT Telemedicine [facility] [address] [place] [address] Nicky Thibodeaux MD [address] [place] [address] documented as of this encounter Visit Diagnoses Not on filedocumented in this encounter Additional Health Concerns Assessment Noted Time PHQ-9 Depression Total Score: 22 023 2:09 PM EDT documented as of this encounter Care Teams Low Heel Builder Relationship Specialty Start Date End Date Nicky Thibodeaux MD [address] [place] [address] PCP - General Family Medicine 04/20/18 Wu Manzo MD [address] [place] [id number] Pain Medicine 03/29/24 Feroz Ascencio MD [address] [place] [address] [id number] Orthopaedic Surgery 06/15/24 Na Orozco Executive Director Global Brand MarketingDirector Nurses' Registry 06/25/23 [facility] 04/26/24 documented as of this encounter
--- OUTSIDE RECORDS SUMMARY | 2024-07-26 06:28 | XMS_ITS | Encounter Summary ---
Author Organization [employer] Address [address] [place] [address] Care Team Providers Care Clinical Operations Consultant Name Role Phone Nicky Thibodeaux MD Primary Care Provider [phone] Wu Manzo MD Unavailable Feroz Ascencio MD Unavailable [phone] Reason for Visit * Reason Onset Date Comments Medication Question 12/11/2022 Encounter Details Date Type Department Care Team (Late st Contact Info) Description 12/11/2022 Telephone [facility] [address] [place] [address] Chelsi Canseco ANP [address] [place] [address] Medication Question Social History Tobacco Use Types [...] EDT Telemedicine [facility] [address] [place] [address] Nicky Thibodeaux MD [address] [place] [address] documented as of this encounter Visit Diagnoses Diagnosis Essential (primary) hypertension Unspecified essential hypertension documented in this encounter Additional Health Concerns Assessment Noted Time PHQ-9 Depression Total Score: 22 023 2:09 PM EDT documented as of this encounter Care Teams Clinical Operations Consultant Relationship Specialty Start Date End Date Nicky Thibodeaux MD [address] [place] [address] PCP - General Family Medicine 04/20/18 Wu Manzo MD [address] [place] [address] [address] [place] [phone] Pain Medicine 03/29/24 Feroz Ascencio MD [address] [place] [address] [phone] Orthopaedic Surgery 06/15/24 Na Orozco Medical Affairs SpecialistCar Salesperson 06/25/23 Latia Guardado PA-C [facility] 04/26/24 documented as of this encounter
--- OUTSIDE RECORDS SUMMARY | 2024-07-26 06:28 | XMS_ITS | Clinical Summary ---
Author Organization [employer] Address [address] [place] [address] 7[address] [place] [address] Care Team Providers Care Health Benefits Specialist Name Role Phone Nicky Thibodeaux MD Primary Care Provider [phone] Wu Manzo MD Unavailable Feroz Ascencio MD Unavailable [phone] Allergies Active Allergy Reactions Criticality Noted Date Comments Aspirin GI intolerance Low 01/03/2013 Ibuprofen GI intolerance Low 12/29/2014 Medications Spiriva HandiHaler 18 MCG inhalation capsuleIndication s:Chronic obstructive pulmonary disease, unspecified COPD type (CMS/HCC) INHALE 1 CAPSULE VIA HANDIHALER ONCE DAILY AT THE SAME TIME EVERY DAY 30 capsule 11 023 Active lidocaine (Lidoderm) 5 % patchIndications: Pain APPLY 1 PATCH EVERY DAY MAY WEAR UP TO 12 HOURS 30 patch 11 024 Active cyanocobalamin (Vitamin B-12) 100 MCG [...] Do not swallow. 1 each 024 Active clobetasol (Temovate) 0.05 % creamIndications: Dermatitis APPLY THIN COAT TO AFFECTED AREA TWICE A DAY 60 g 2 024 Active lisinopril 10 MG tabletIndications :Primary hypertension TAKE 1 TABLET BY MOUTH EVERY DAY 90 tablet 3 024 Active omeprazole (PriLOSEC) [address] capsuleIndication s:Abdominal pain, unspecified abdominal location TAKE 1 CAPSULE BY MOUTH EVERY DAY BEFORE A MEAL 90 capsule 1 024 Active lidocaine-priloca ine (Emla) 2.5-2.5 % creamIndications: Pain APPLY TOPICALLY 1 (ONE) TIME FOR 1 DOSE. APPLY TWICE A DAY NEEDED FOR PAIN 30 g 1 024 Active diclofenac (Voltaren) 75 MG EC tabletIndications :Osteoarthritis of hip, unspecified laterality, unspecified osteoarthritis type TAKE 1 TABLET BY MOUTH TWICE A DAY NEEDED 60 tablet 3 025 Active baclofen (Lioresal) 5 MG tabletIndications :Chronic low back pain, unspecified back pain laterality, unspecified whether sciatica present TAKE 1 TABLET BY MOUTH 3 TIMES A DAY NEEDED FOR MUSCLE PAIN 024 Active zolpidem (Ambien) 10 MG tabletIndications :Primary insomnia 1 tablet. Active ALPRAZolam (Xanax) 0.5 MG tabletIndications :Anxiety 0.5 mg. Active gabapentin (Neurontin) 600 MG tabletIndications :Chronic low back pain, unspecified back pain laterality, unspecified whether sciatica present 600 mg. Active atorvastatin (Lipitor) 40 MG tabletIndications :Dyslipidemia Take 1 tablet (40 mg) by mouth at bedtime. 90 tablet 3 025 Active lamoTRIgine (LaMICtal XR) 200 mg tablet sustained-release 24 hour 24 hr tabletIndications :Depression with anxiety 200 mg. 021 Active QUEtiapine (SEROquel) 50 MG tabletIndications :Depression with anxiety 50 mg. Active HYDROcodone-aceta minophen (Tyler) 5-325 MG tabletIndications :Chronic low back pain, unspecified back pain laterality, unspecified whether sciatica present 1 tablet. 024 Active OXcarbazepine (Trileptal) 600 MG tabletIndications :Depression with anxiety 600 mg. Active sennosides (Senna-Time) 8.6 MG tabletIndications :Constipation, unspecified constipation type TAKE 1 TABLET BY ORAL ROUTE EVERY DAY NEEDED FOR CONSTIPATION NEEDED 90 tablet 3 025 Active Omeprazole 20 MG Tablet Delayed Release DispersibleIndica tions:Gastroesoph ageal reflux disease, unspecified whether esophagitis present 1 capsule. 021 Active Zepbound 5 MG/0.5ML solution auto-injectorIndi cations:Class 2 severe obesity due to excess calories with serious comorbidity and body mass index (BMI) of 35.0 to 35.9 in adult ([facility]) Inject 0.5 mL (5 mg) under the skin 1 (one) time per week. 2 mL 3 025 Active Ventolin HFA 108 (90 Base) MCG/ACT inhalerIndication s:Asthma, unspecified asthma severity, unspecified whether complicated, unspecified whether persistent INHALE 2 PUFFS BY MOUTH EVERY 4 TO 6 HOURS NEEDED 18 g 1 025 Active albuterol (2.5 MG/3ML) 0.083% nebulizer solution INHALE 3ML BY NEBULIZATION ROUTE FOUR TIMES EVERY DAY IF NEEDED 75 mL 3 025 Active Acetaminophen Extra Strength 500 MG tabletIndications :Pain TAKE 1 TABLET BY MOUTH EVERY 8 HOURS NEEDED 90 tablet 1 025 Active cholecalciferol (D3-1000) 25 MCG (1000 UT) capsuleIndication s:Vitamin D deficiency TAKE 1 CAPSULE BY MOUTH EVERY DAY 90 capsule 1 025 Active SUMAtriptan (Imitrex) 50 MG tabletIndications :Chronic migraine without aura without status migrainosus, not intractable TAKE 1 TABLET BY MOUTH AT ONSET OF MIGRAINE MAY REPEAT DOSE IN 2 HOURS IF NEEDED MAX 4 TABLETS DAILY 10 tablet 2 025 Active cyclobenzaprine (Flexeril) 10 MG tabletIndications :Pain TAKE 1 TABLET BY MOUTH UP TO 3 TIMES DAILY NEEDED FOR MUSCLE PAIN 90 tablet 025 Active cyclobenzaprine (Flexeril) 10 MG tabletIndications :Pain TAKE 1 TABLET BY MOUTH UP TO 3 TIMES DAILY NEEDED FOR MUSCLE PAIN 60 tablet 11 024 2024 Discontinued cholecalciferol (D3-1000) 25 MCG (1000 UT) capsuleIndication s:Vitamin D deficiency TAKE 1 CAPSULE BY MOUTH EVERY DAY 90 capsule 1 024 2024 Discontinued SUMAtriptan (Imitrex) 50 MG tabletIndications :Chronic migraine without aura without status migrainosus, not intractable TAKE 1 TABLET BY MOUTH AT ONSET OF MIGRAINE MAY REPEAT DOSE IN 2 HOURS IF NEEDED MAX 4 TABS DAILY 10 tablet 2 024 2024 Discontinued Acetaminophen Extra Strength 500 MG tabletIndications :Pain TAKE 1 TABLET BY MOUTH EVERY 8 HOURS NEEDED 90 tablet 1 025 2024 Discontinued Active Problems Problem Noted Date Diagnosed Date Need for antibiotic prophylaxis for dental proce dure 07/25/2024 Overview (07/25/2024): Per ortho note due to hx hip replacements, pt needs amoxicillin 500mg, 4 tabs by mount for a total of 2 grams one hour prior to procedure. Chronic pain of right knee 03/14/2024 Overview [...] due after 03/14/25 -eye care facilitated by [facility] [place] -dental home is [facility] -[facility] care proxy paperwork completed by to the patient 07/17/23 Assessment & Plan (03/14/2024 11:23 AM EST): -next physical exam due after 03/14/25 -eye care facilitated by [facility] -dental home is [facility] -[facility] care proxy paperwork completed by to the patient 07/17/23 Assessment & Plan (11/19/2023 11:08 AM EDT): -next physical exam due after 12/11/23 -eye care facilitated by [facility] -dental home is [facility] -[facility] care proxy paperwork completed by to the patient 07/17/23 Assessment & Plan (07/17/2023 10:10 AM EDT): -next physical exam due after 12/11/23 -eye care facilitated by [facility] -dental home is [facility] -[facility] care proxy paperwork completed by [...] the MRI image on the disc from [facility] where she had MRI performed. I also requested her to read brochures about [facility] and [facility] [employer]. Assessment & Plan (07/17/2023 10:03 AM EDT): Her pain is not controlled. Dillon asked her to reach out to her original prescriber for Vicodin at [facility]. She is 7 weeks post-op sugery and is weaning her percocet's. Dillon explained since she is on Ambien, gabapentin, and benzodiazapine I would not be able to safely prescribe the medications through our program. Assessment & Plan (12/15/2022 9:38 AM EDT): Her pain is not controlled. Dillon asked her to reach out to her original prescriber for Vicodin at [facility]. She is 7 weeks post-op sugery and is weaning her percocet's. Dillon explained since she is on Ambien, gabapentin, and benzodiazapine I would not be able to safely prescribe the medications through our program. Assessment & Plan (09/03/2022 12:12 PM EDT): Her pain is not controlled. Dillon asked her to reach out to her original prescriber for Vicodin at [facility]. She is 7 weeks post-op sugery and [...] considered to be 1.7 or 2.4 mg shelter. -BUZZ resubmitted 11/19/23 - Advised to Switch [...] considered to be 1.7 or 2.4 mg shelter. -BUZZ resubmitted 11/19/23 - Advised to Switch [...] considered to be 1.7 or 2.4 mg shelter. -PA resubmitted 11/19/23 Assessment & Plan (09/23/2023 12:35 [...] considered to be 1.7 or 2.4 mg shelter. Chronic low back pain 07/23/2022 Overview (03/14/2024): [...] severe pain. She is getting Vicodin from [facility]. She requests opiate medications from [...] pain. She sees a therapist and psychiatrist. -[facility] prescribing hydrocodone/APA 5/325 to support instrumented activities of daily living. [...] severe pain. She is getting Vicodin from [facility]. She requests opiate medications from [...] pain. She sees a therapist and psychiatrist. -[facility] prescribing hydrocodone/APA 5/325 to support instrumented activities of daily living. Note from 11/26/23 reviewed. -I will discuss with our pain management providers for any recommendations - Referred to follow up with Pain management. Pain pump is being advised 03/14/24 Assessment & Plan (11/19/2023 11:10 AM EDT): -s/p surgery with Dr. Tania Escamilla 06/2022 -Pt continues to report severe pain. She is getting Vicodin from [facility]. She requests opiate medications [...] -Referral placed to Gynecology, Dr. Aaron 07/17/23 -[facility] called 09/23/23 stating pt declined appt [...] -Referral placed to Gynecology, Dr. Aaron 07/17/23 -[facility] called 09/23/23 stating pt declined appt [...] -Referral placed to Gynecology, Dr. Aaron 07/17/23 -[facility] called 09/23/23 stating pt declined appt [...] hip replacement 01/29/2021 Osteoarthritis of hip 06/02/2013 Overview (07/25/2024): -s/p rith MARISELA 2012, s/p left MARISELA 01/29/[address] Neal in [place] -s/p bilateral GT bursa injection under fluoroscopic guidance 06/13/24 with moderate reduction of pain in bilateral lateral hips -seen by ortho at [facility] 07/21/24 Hip pain 07/13/2012 Overview (11/19/2023): -s/p two [...] Encounters Date Type Department Care Team Description 07/17/2024 Refill [facility] [address] [place] [address] Nicky Thibodeaux MD Pain 07/01/2024 Population Health Risk Score Community [facility] ([facility]) Department [address] [place] [id number] Provider, Population Health Generic 06/30/2024 Refill [facility] [address] [place] [address] Nicky Thibodeaux MD Vitamin D deficiency; Chronic migraine without aura without status migrainosus, not intractable 06/27/2024 Refill [facility] [address] [place] [address] Nicky Thibodeaux MD Pain 06/22/2024 Refill [facility] [address] [place] [address] Nicky Thibodeaux MD 06/15/2024 Refill [facility] [address] [place] [address] Nicky Thibodeaux MD Asthma, unspecified asthma severity, unspecified whether complicated, unspecified whether persistent 06/09/2024 Telephone [facility] [place] [address] Nicky Thibodeaux MD Medication Question 06/07/2024 2:30 PM EST Clinical Support [facility] [address] [place] [address] America Robertson, RN Visit for wound care 06/07/2024 Travel 05/30/2024 Telephone [facility] [place] [address] Nicky Thibodeaux MD PT1 05/30/2024 Telephone [facility] [place] [address] Nicky Thibodeaux MD ER Follow-up 05/27/2024 Orders Only [facility] [address] [place] [phone] Nicky Thibodeaux MD Primary insomnia (Primary Dx); Chronic low back pain, unspecified back pain laterality, unspecified whether sciatica present; Anxiety; Dyslipidemia; Depression with anxiety; Constipation, unspecified constipation type; Primary hypertension; Gastroesophageal reflux disease, unspecified whether esophagitis present; Class 2 severe obesity due to excess calories with serious comorbidity and body mass index (BMI) of 35.0 to 35.9 in adult ([facility]) 05/26/2024 Refill [facility] [address] [place] [phone] Nicky Thibodeaux MD Pain 05/23/2024 Telephone [facility] [address] [place] [phone] Nicky Thibodeaux MD Medication Question 05/16/2024 Refill [facility] [address] [place] [phone] Nicky Thibodeaux MD Osteoarthritis of hip, unspecified laterality, unspecified osteoarthritis type 05/11/2024 Telephone [facility] [address] [place] [phone] Nicky Thibodeaux MD Nurse Triage 05/02/2024 Telephone [facility] [address] [place] [address] [phone] Nicky Thibodeaux MD 04/27/2024 Refill [facility] [address] [place] [phone] Nicky Thibodeaux MD Pain from Last 3 [...] 12/15/2022 9:25 AM EDT Plan of Treatment Upcoming Encounters Date Type Department Care Team (Late st Contact Info) Description 09/14/2024 11:30 AM EDT Telemedicine [facility] [address] [place] [address] Nicky Thibodeaux MD [address] [place] [address] Health Maintenance Due Date Last Done Comments CT Colonography 1965 FIT DNA/Cologuard 1965 FIT 1965 FOBT 1965 Sigmoidoscopy 1965 Hepatitis B Vaccines (1 of 3 - 19+ 3-dose series) 1984 Pneumococcal Vaccine: 50+ Years (2 of 2 - PCV) 04/05/2015 04/05/2014 Zoster Vaccines (1 of 2) 07/21/2015 Dental Oral Exam 08/03/2018 02/01/2018, , 04/30/2010 Dental X-Ray: Bitewings 02/02/2019 02/01/2018, 12/02 Dental Prophylaxis 10/05/2021 04/05/2021 Cervical Cancer Screening 09/11/2022 HPV/Cotest 09/11/2022 08/02/2021 Pap Smear 09/11/2022 08/02/2021, 08/02/2021 COVID-19 Vaccine ( season) 2023 Influenza Vaccine (#1) 2023 4, 12/29/2012, 01/19/2012 Depression Monitoring (PHQ-9) 09/11/2024 03/14/2024, 03/14/2024 SDOH Screening 11/08/2024 11/09/2023 Alcohol/Substance Use Screening 03/14/2025 03/14/2024 Depression Screening 03/14/2025 03/14/2024, 03/14/20 24 Tobacco Screening 03/14/2025 03/14/2024 Mammogram 08/10/2025 08/11/2023, 10/18, 10/29/2020, Additional history exists Colonoscopy 12/10/2025 12/11/2015 Colorectal Cancer Screening 12/10/2025 Dental X-Ray: Full Mouth 01/29/2027 01/29/2024, 11/18 Lipid Panel 07/16/2028 07/17/2023, 09/03/2022 DTaP/Tdap/Td Vaccines (4 - Td or Tdap) 05/28/2034 05/28/2024, 09/03/2022, 05/07/2011 RSV Patients and Patients Aged [...] Procedure Name Priority Date/Time Associated Diagnosis Comments WOUND CARE Routine 06/07/2024 2:50 PM EST Visit for wound care XR WRIST 3+ VIEWS LEFT Routine 1:11 AM EST PANORAMIC RADIOGRAPHIC IMAGE Routine 01/29/2024 3:30 PM [...] Recently Relevant to Health Maintenance Results * Wound Care (06/07/2024 2:50 PM EST) Narrative America Robertson RN - 06/07/2024 2:50 PM EST America Robertson RN ? 06/07/2024 ??3:02 PM Wound Care Date/Time: 06/07/2024 2:50 PM Performed by: America Robertson RN Authorized by: Nicky Thibodeaux MD ?? Consent: ??Consent obtained: ??Verbal ??Consent given by: ??Patient Skin layer closed with: ??Wound care performed: ??Steri-strips placed Dressing: ??Wrapped with: ??Elastic bandage 3 inch Post-procedure details: ??Procedure completion: ??Tolerated Comments: ?? Pt presented for suture removal NV. However, she reports that she took sutures out herself on Monday 06/05 because it was swollen and tight and had purulent drainage. Now wound has slight separation so pt came in for me to looks at it. Wound healing well, clean, dry, and without exudates. Pt reports cleaning with hydrogen peroxide, alcohol wipes, and soap and water. She also has been applying antibiotic ointment and holding wound together using small band-aids pulling it together. Advised against hydrogen peroxide and alcohol wipes as these kill the good bacteria as well so may delay wound healing. Advised antibacterial soap and water only and bacitracin. Clean once daily only. Cleaning too often and too vigorously can prevent wound from healing. 3 steri strips placed as wound was slightly (could not see beyond dermal layer) and large Band-Aid applied as dressing. Gave wound care supplies and advised to keep cleaning and covering for at least a few more days, until wound has healed over. Call for S/Sx of infection or come to walk in. Go back to the ED if wound separates more. us Nicky Thibodeaux MD IN CLINIC/BEDSIDE ORDERABL ES Final Result * XR Wrist 3+ Views Left (05/28/2024 1:11 AM EST) Anatomical Region Laterality Modality Upper Extremities, Wrist Left Radiogr aphic Imaging 05/28/2024 1:11 AM EST Narrative 05/28/2024 1:13 AM EST ? [facility] ?[address] ?[place] [address] ?XRay Report ? Signed ? Patient: Carol,Darcy F ?MR#: [id number] ?? [id number] ? : 1965 ?Acct:[id number] ? Age/Sex: 58 / F ?ADM Date: 05/28/24 ? Loc: HO.ED ? Attending Dr: ? Ordering Physician: Parish Zuñiga ?? Date of Service: 05/28/24 ?? Procedure(s): XR wrist LT min 3V ?? Accession Number(s): [id number] ? cc: Nicky Thibodeaux MD; Parish Zuñiga ? CLINICAL HISTORY: trauma ? 4 view left wrist ? Comparison: None ? Findings: ?? No fractures or dislocations. ?? No significant arthritic change or erosions. ?? No radiopaque foreign body. ? IMPRESSION: ?? 1. No acute findings ? This document has been electronically signed by: Cory Tapia MD, ?? PHD on 05/28/2024 01:11:57 ? Dictated By: ?Cory Tapia MD ? Signed By: ?<Electronically signed by Cory Tapia MD in OV> ? 05/28/24 0112 ? DD/ 011 ? TD/TT: 05/28/24 011 ? Scrap Hoist Operator: ? Procedure Note Marcia Aguilar - 05/28/2024 [place] [id number] [facility] [place] [address] XRay Report Signed Patient: Darcy Medina FMR#: [id number] : 1965Acct:[id number] Age/Sex: 58 / FADM Date: 05/28/24 Loc: HO.ED Attending Dr: Ordering Physician: Parish Zuñiga Date of Service: 05/28/24 Procedure(s): XR wrist LT min 3V Accession Number(s): [id number] cc: Nicky Thibodeaux MD; Parish Zuñiga CLINICAL HISTORY: trauma 4 view left wrist Comparison: None Findings: No fractures or dislocations. No significant arthritic change or erosions. No radiopaque foreign body. IMPRESSION: 1. No acute findings This document has been electronically signed by: Cory Tapia MD, PHD on 05/28/2024 01:11:57 Dictated By: Cory Tapia MD Signed By: <Electronically signed by Cory Tapia MD in OV> 05/28/24 0112 DD/ 0111 TD/TT: 05/28/24 0111 Scrap Hoist Operator: [facility] External Provider IMG XR PROCEDURES Edited Result - Final * BI Mammogram Screening Tomosynthesis Bilateral (08/11/2023 1:05 PM EDT) Anatomical Region Laterality Modality Breast Bilateral Mammography 08/11/2023 1:05 PM EDT Narrative 08/22/2023 7:23 AM EDT ? [facility] [place] ? [address] ?[place] [address] ? Mammography Report ? Signed ? Patient: Couture,Darcy F ?MR#: [id number] ?? [id number] ? : 1965 ?Acct:[id number] ? Age/Sex: 58 / F ?ADM Date: 04/23/24 ? Loc: HO.MAMMO ? Attending : Nicky Thibodeaux MD ? Ordering Physician: Nicky Thibodeaux MD ?Results: 2B ?? enign Findings ? Date of Service: 08/11/23 ?Follow Up: 1 Year From Orig ?? inal Mammogram ? Procedure(s): MM tomosynthesis screening BI ?? Accession Number(s): [id number] ? cc: Nicky Thibodeaux MD ? EXAMINATION: [...] Maria Elena Guillen MD in OV> ? 08/22/23718 ? DD/ ? TD/TT: ? Scrap Hoist Operator: ? Procedure Note Jeff, Image - [facility]/20[facility] [address] [place] [address] Mammography Report Signed Patient: Darcy Medina FMR#: [id number] : 1965Acct:[id number] Age/Sex: 58 / FADM Date: 08/11/23 Loc: HO.MAMMO Attending Dr: Nicky Thibodeaux MD Ordering Physician: Nicky Thibodeaux MDResults: 2B enign Findings Date of Service: 08/11/23Follow Up: 1 Year From Orig inal Mammogram Procedure(s): MM tomosynthesis screening BI Accession Number(s): [id number] cc: Nicky Thibodeaux MD EXAMINATION: MM SCREENING [...] their next mammogram. Dictated By: Maria Elena Guillen MD Signed By: <Electronically signed by Maria Elena Guillen MD in OV> 08/22/23 0719 DD/ 1305 TD/TT: Scrap Hoist Operator: Nicky Thibodeaux MD IMG BI PROCEDURES Edited R esult - Final * (ABNORMAL) Lipid Panel, Standard (07/17/2023 10:24 AM EDT) Triglycerides 168(H) <150 mg/dL [facility] Comment:Desirable Triglyceri de: less than 150 mg/dLBorderline High Triglyceride 150-199 mg/dLHigh Triglyceride: 200-499 mg/dLVery High Triglyceride: greater than or equal to 5OO mg/dL Cholesterol 219(H) <200 mg/dL [facility] Comment:Desirable Cholestero l: less than 200 mg/dLBorderline High Cholesterol: 200-239 mg/dLHigh Cholesterol: greater than 239 mg/dL LDL Cholesterol Calculated 137(H) <100 mg/dL [facility] Comment:Desirable LDL: less than 100 mg/dLNear Optimal/Above Optimal LDL: 110- 129 mg/dLBorderline High LDL: 130-159 mg/dLHigh LDL: 160-189 mg/dLVery High LDL: greater than or equal to 190 mg/dL HDL Cholesterol 49 >40 mg/dL [facility] Comment:Desirable HDL: great er than 40 mg/dL Note: This HDL assay may give artificially low results in patients with liver disease. Blood Venous blood specimen / Unknown 07/17/2023 10:24 AM EDT 07/17/2023 11:19 AM EDT Nicky Thibodeaux MD LAB BLOOD ORDERABLES Final Result [facility] [address] [place] [phone] * Hepatitis C Antibody with Reflex to HCV, RNA, Quantitative, Real-Time PCR (09/03/2022 11:58 AM EDT) Hepatitis C Antibody NON-REACT DILLON NON-REACT DILLON [facility] [place] [facility] Index 0.02 <1.00 [facility] [place] [facility] Comment: HCV antibody was non-reactive. There is no laboratory evidence of HCV infection. In most cases, no further action is required. However, if recent HCV exposure is suspected, a test for HCV RNA (test code 67653) is suggested. For additional information please refer to http://[employer]/faq/TKM14u1 (This link is being provided for informational/ educational purposes only.) Blood Venous blood specimen / Unknown 09/03/2022 11:58 AM EDT 09/03/2022 11:58 AM EDT Narrative [facility] - 09/07/2022 11:33 PM EDT FASTING:YES FASTING: YES us Nicky Thibodeaux MD LAB BLOOD ORDERABLES Final Result [facility] [address], [place] [address] [facility] [address] [place] [address] * HIV-1/2 Antigen and Antibodies, Fourth Generation, with Reflexes (09/03/2022 11:58 AM EDT) Pathologist [facility] HIV Antigen/Antibody, 4th Generation NON-REAC TIVE NON-REAC TIVE [facility] [place] [facility] Comment: HIV-1 antigen and HIV-1/HIV-2 antibodies [...] ?? For additional information please refer to http://[employer]/faq/LLP739 (This link is being provided for informational/ educational purposes only.) The performance of this assay has not been clinically validated in patients less than 2 years old. Blood Venous blood specimen / Unknown 09/03/2022 11:58 AM EDT 09/03/2022 11:58 AM EDT Narrative [facility] - 09/07/2022 11:33 PM EDT FASTING:YES FASTING: YES us Nicky Thibodeaux MD LAB BLOOD ORDERABLES Final Result [facility] [address] [facility], [place] [address] [facility] [address] [place] [address] * (ABNORMAL) THINPREP TIS PAP AND HPV mRNA E6/E7, CT/NG, TRICH (08/02/2021 11:49 AM EDT) Chlamydia trachomatis RNA, TMA, Urogenital NOT DETECTED NOT DETECTED [facility] Clinical Information: None given [facility] COMMENT SEE [facility] Comment: The analytical performance characteristics of this assay, when used to test SurePath(TM) specimens have been determined by [facility]. The modifications have not been cleared or approved by the FDA. This assay has been validated pursuant to the CLIA regulations and is used for clinical purposes. ?? For additional information, please refer to https://education.[employer]/faq/ALY330 (This link is being provided for information/ [...] has been evaluated with computer assisted technology. [facility] Care Team Coordinator Scheduler: SEE COMMENT [facility] [facility] Comment: DCR, CT(ASCP) CT screening location: [address] ??[address] HPV nRNA E6/E7 Detected(A) Not Detected [facility] Comment: Methodology: Heel Splitter-Mediated Amplification This assay detects E6/E7 viral messenger RNA (mRNA) from 14 high-risk HPV types (16,18,31,33,35,39,45,51,52,56,58,59,66,68). ? The analytical performance characteristics of this assay have been determined by [employer]. The modifications have not been cleared or approved by the FDA. This assay has been validated pursuant to the CLIA regulations and is used for clinical purposes. ?? For additional information, please refer to http://[employer]/faq/MPW769g7 (This link if provided for information/ educational [...] NONE GIVEN [facility] Review Care Team Coordinator Scheduler: SEE COMMENT [facility] Comment: JXM, CT(ASCP) CT screening location: [address] ??[address] SOURCE: None given [facility] Statement Of Adequacy: SATISFACTORY FOR EVALUATION [facility] Trichomonas vaginalis, QL, TMA, PAP Vial NOT DETECTED NOT DETECTED [facility] Comment: The analytical performance characteristics of this assay have been determined by [employer]. The modifications have not been cleared or approved by the FDA. This assay has been validated pursuant to the CLIA regulations and is used for clinical purposes. ?? For additional information, please refer to http://[employer]/ faq/Trichomonastma (This link is being provided for information/ educational purposes only.) ?? 08/02/2021 11:4 9 AM EDT Nicky Thibodeaux MD LAB PATHOLOGY ORDERABLES F inal Result [facility] [address] [place] [address], * Pap Smear (08/02/2021 12:00 AM EDT) Swab Nicky Thibodeaux MD LAB CYTOLOGY ORDERABLES Fi nal Result [facility] [address] [place] [phone] [phone] * Hm Colonoscopy (12/11/2015) Colonoscopy normal with Dr. Dnany Norman us Historical Provider HEALTH MAINTENANCE Final Result from Last 3 Months or Most Recently Relevant to Health Maintenance Insurance [facility] C3 [facility] MEDICAID STAND ADULT Advance Directives Documents on File Type Date Recorded Patient Cripple Cutter Expl anation Advance Directives and Living Will 07/17/2023 Health Care Proxy 07/17/23 Care Teams Health Benefits Specialist Relationship Specialty Start Date End Date Burleigh, MD Nicky [address] [place] [address] PCP - General Family Medicine 04/20/18 Wu Manzo MD [address] [place] [address] Drive [address] [place] [address] Pain Medicine 03/29/24 Feroz Ascencio MD [address] [place] [phone] Orthopaedic Surgery 06/15/24 Na Orozco MicropaleontologistTechnician Test Systems 06/25/23 Latia Guardado PA-C [facility] 04/26/24
--- OUTSIDE RECORDS SUMMARY | 2024-07-26 06:28 | XMS_ITS | Encounter Summary ---
Author Organization [employer] Address [address] [facility] [address] 7t [place] [address] Care Team Providers Care Making Machine Operator Name Role Phone Nicky Thibodeaux MD Primary Care Provider [phone]- [phone] Wu Manzo MD Unavailable Feroz Ascencio MD Unavailable [phone] Reason for Visit * Reason Onset Date Comments PT-1 12/08/2023 Encounter Details Date Type Department Care Team (Late st Contact Info) Description 12/08/2023 Telephone [facility] [address] [place], [place] [phone] Nicky Thibodeaux MD 230 [place], [place] [phone] PT-1 Social History Tobacco Use Types Packs/Day [...] Y/N: Yes Provider name or facility name: [facility] pain management Facility Address: [address] [place] [address] Escort needed: Y/N: No Do you have a wheelchair: Y/N: No If yes- Manual or electric: N/A (uses walker) Visits: twice a month documented in this encounter Plan of Treatment Upcoming Encounters Date Type Department Care Team (Late st Contact Info) Description 09/14/2024 11:30 AM EDT Telemedicine [facility] [address] [place] [address] Nicky Thibodeaux MD [address] [place] [address] documented as of this encounter Visit Diagnoses Not on filedocumented in this encounter Additional Health Concerns Assessment Noted Time PHQ-9 Depression Total Score: 22 023 2:09 PM EDT documented as of this encounter Care Teams Making Machine Operator Relationship Specialty Start Date End Date Nicky Thibodeaux MD [address] [place] [address] PCP - General Family Medicine 04/20/18 Wu Manzo MD [address] [place] [address] Drive [address] [place] [address] Pain Medicine 03/29/24 Feroz Ascencio MD [address] [place] [phone] Orthopaedic Surgery 06/15/24 Na Orozco Energy Project ManagerSite Inspector 06/25/23 TREASURE [facility] 04/26/24 documented as of this encounter
--- OUTSIDE RECORDS SUMMARY | 2024-07-26 06:28 | XMS_ITS | Encounter Summary ---
Author Organization [employer] Address [address] [facility] 7t [place] [address] Care Team Providers Care Fall Internship Name Role Phone Nicky Thibodeaux MD Primary Care Provider [phone]- [phone] Wu Manzo MD Unavailable Feroz Ascencio MD Unavailable [phone] Encounter Details Date Type Department Care Team (Latest Contact Info) Description 04/05/2021 Abstract [facility] CONVERSIONS Dental, Provider, DDS Social History Tobacco [...] 09/14/2024 11:30 AM EDT Telemedicine [facility] MEDICINE [address] [place] [address] Nicky Thibodeaux MD [address] [place] [address] documented as of this encounter Visit Diagnoses Not on filedocumented in this encounter Care Teams Fall Internship Relationship Specialty Start Date End Date Nicky Thibodeaux MD [address] [place], [place] [phone] PCP - General Family Medicine 04/20/18 Wu Manzo MD [address] [place] [address] Pain Medicine 03/29/24 Feroz Ascencio MD [address] [place] [phone] Orthopaedic Surgery 06/15/24 Na Orozco Inbound Sales AdvisorManager Nuclear 06/25/23 TREASURE [facility] 04/26/24 documented as of this encounter
--- OUTSIDE RECORDS SUMMARY | 2024-07-26 06:28 | XMS_ITS | Clinical Summary ---
Author Organization [facility] Address [address] [place] [address] Care Team Providers Care Manager Inventory Name Role Phone Nicky Thibodeaux MD Primary Care Provider [phone]- [phone] Social History Tobacco Use Types Packs/Day Years Used Date Smoking Tobacco: Never Assessed Comments Unknown Sex and Gender Information Value Date Recorded Sex Assigned at Not on file Legal Sex Female 2:20 PM EST Gender Identity Not on file Sexual Orientation [...] Cervical Cancer Screening: P ap Smear 1986 Pneumococcal Vaccine: 50+ Ye ars (1 of 1 - PCV) 07/21/2015 Zoster Vaccines (1 of 2) 07/21/2015 Colorectal [...] patient's age to complete this topic Meningococcal B Vaccine Aged Out No l onger eligible based on patient's age to complete [...] age to complete this topic Care Teams Manager Inventory Relationship Specialty Start Date End Date Nicky Thibodeaux MD [address] [place] [phone] PCP - General Internal Medicine 12/21/13
--- OUTSIDE RECORDS SUMMARY | 2024-07-26 06:28 | XMS_ITS | Encounter Summary ---
Author Organization [employer] Address [address] [facility] [address] 7t [place] [address] Care Team Providers Care Financial Reserve Clerk Name Role Phone Nicky Thibodeaux MD Primary Care Provider [phone]- [phone] Wu Manzo MD Unavailable Feroz Ascencio MD Unavailable [phone] Reason for Visit * Reason Onset Date Comments Nurse Triage 05/11/2024 Encounter Details Date Type Department Care Team (Late st Contact Info) Description 05/11/2024 Telephone [facility] MED[facility]INE 230 [place], [place] [phone] Nicky Thibodeaux MD 230 [place], [place] [phone] Nurse Triage Social History Tobacco Use Types [...] or Thursday.Pt wants appt on Thursday when COUNTY ADMINISTRATOR is available to bring pt. Reviewed [facility] operating hours and that wait times vary. Unable to book sick on site > 48 hours. Pt advised can call back on Thursday for Thursday scheduled. Reviewed home care advise, ER precautions and reasons to call back. Protocol Used: Dizziness (Adult) Protocol-Based Disposition: Discuss with PCP and Callback by Nurse Today Sent to PCP and Fithian team Primary care nurses for follow up [...] 11:30 AM EDT Telemedicine [facility] [address] [place] [address] Nicky Thibodeaux MD [address] [place] [address] documented as of this encounter Visit Diagnoses Not on filedocumented in this encounter Additional Health Concerns Assessment Noted Time PHQ-9 Depression Total Score: 14 024 10:51 AM EST documented as of this encounter Care Teams Financial Reserve Clerk Relationship Specialty Start Date End Date Nicky Thibodeaux MD [address] [place] [address] PCP - General Family Medicine 04/20/18 Wu Manzo MD [address] [place] [address] Pain Medicine 03/29/24 Feroz Ascencio MD [address] [place] [phone] Orthopaedic Surgery 06/15/24 Na Orozco Prepared Foods SupervisorSales Promotion Coordinator 06/25/23 Latia Guardado PA-C [facility] 04/26/24 documented as of this encounter
== END 2024-07-26 06:25 | disposition home or self-care (01) ==
LOC: CF 06:24
PROVIDERS: Visit Provider Anesthesiology
DX: G89.4 Chronic pain syndrome (principal); M96.1 Postlaminectomy syndrome, not elsewhere classified; M46.1 Sacroiliitis, not elsewhere classified; M53.3 Sacrococcygeal disorders, not elsewhere classified
CPT/HCPCS: 62323; J2003

== ENCOUNTER 2024-07-26 12:41 | Outpatient (AMB) | payer MEDICAID, SELFPAY ==
[2024-07-26 12:51] VITALS: BP 158/85; PULSE 84; RESP 16; O2SAT 99
--- NOTE | 2024-07-26 12:51 | MHC.OFFVIS ---
Vital Signs 07/26/24 12:51 07/26/24 13:19 BP 158/85 H 136/77 Blood Pressure Location Lt brachial Lt brachial Position Sitting Supine Respiration 16 16 Pulse 84 70 Pulse Source Pulse Oximeter Pulse Oximeter Pulse Oximetry (%) 99 99 Oxygen Delivery Method Room Air Room Air Intake Visit Reasons: INTRATHECAL ITDD PAIN PUMP TRIAL W/CLONIDINE Microbiological Laboratory Technician Required: No Allergies aspirin [ASPIRIN] Allergy (Mild, Verified 07/26/24 12:52) GI UPSET ibuprofen [IBUPROFEN] Allergy (Mild, Verified 07/26/24 12:52) GI UPSET Medication List - Last Reconciled 07/26/24 by Juana Mahan LPN acetaminophen 650 mg (2 x 325 mg) PO Q6H PRN 30 days albuterol sulfate 90 mcg/actuation (ProAir HFA) 2 puffs inhalation Q6H PRN alprazolam (Xanax) 0.5 mg PO QID atorvastatin 40 mg PO BEDTIME baclofen 5 mg PO TID PRN cholecalciferol (vitamin D3) (Vitamin D3) 1 cap PO DAILY cyclobenzaprine 10 mg PO PRN diclofenac sodium 75 mg PO BID PRN docusate sodium 100 mg PO BID 30 days fluticasone propionate 220 mcg/actuation (Flovent HFA) 1 puff inhalation BID gabapentin 600 mg PO TID lamotrigine 200 mg PO BEDTIME lidocaine 5% 1 patch topical DAILY PRN lidocaine-prilocaine 2.5-2.5 % topical lisinopril 10 mg PO BEDTIME omeprazole 1 cap PO DAILY@0630 oxcarbazepine 600 mg PO BEDTIME quetiapine 50 mg PO BEDTIME semaglutide (weight loss) (Wegovy) 1.7 mg subcut QWEEK sumatriptan succinate 50 mg PO DAILY PRN tiotropium bromide (Spiriva with HandiHaler) 1 cap inhalation DAILY varenicline tartrate 1 mg PO BID zolpidem 1 tab PO BEDTIME [facility] Medical History Poor dentition Neck pain Low back pain Anxiety and depression History of panic attacks Chronic headaches Uses roller walker Nicotine dependence, cigarettes, uncomplicated (~1978) Hyperlipidemia History of TIA (transient ischemic attack) (~2019) Personal history of nicotine dependence (~1978) COPD (chronic obstructive pulmonary disease) Osteoarthritis of left hip Hypertension Surgical History History of appendectomy (~02/13/02) Status post total hip replacement, right (~04/26/13) Social History Household Members: None Housing: Apartment Are you a primary career development counselor to a significant other at home: No Do you presently have visiting nurse or other home services: No Comment: patient refused bed alarm Patient Tobacco Use Status: Current everyday Tobacco user Tobacco use type: Cigarette Cigarette Packs Per Day: 1 Cigarettes Per Day: 20.0 Years Smoked: 42 Second Hand Smoke Exposure: No Current occupational status: unemployed Current occupation: Right Handed Female Reproductive History Menstrual Age of Menarche: 13 Physical Exam Vital Signs: Last Vital Signs Pulse 70 07/26/24 13:19 Resp 16 07/26/24 13:19 BP 136/77 07/26/24 13:19 Pulse Ox 99 07/26/24 13:19 Oxygen Delivery Method Room Air 07/26/24 13:19 Assessment & Plan Assessment & Plan (1) Sacroiliitis: Code(s): M46.1 - Sacroiliitis, not elsewhere classified Category: Medical (2) Sacroiliac joint dysfunction of both sides: Code(s): M53.3 - Sacrococcygeal disorders, not elsewhere classified Category: Medical (3) Postlaminectomy syndrome, lumbar: Code(s): M96.1 - Postlaminectomy syndrome, not elsewhere classified Category: Medical (4) Chronic pain syndrome: Code(s): G89.4 - Chronic pain syndrome Category: Medical Plan Intrathecal pain pump trial clonidine. Informed consent was explained to the patient. All questions were explained and answered.? The patient was taken inside of the operating room where he was positioned prone on the operating table.? Time-out was performed delineating patient's name and date of , correct site, side, the nature of the procedure, patient's allergy, preoperative antibiotic if needed.? All operating room staff And the patient were participating in OR time-out procedure. ?the patient's lower back was prepped with ChloraPrep and draped with sterile? utility draped.? Sterilely draped C-arm was brought over the operating field and sq picture of? lumbar vertebrae were delineated on the screen. the target of needle insertion was chosen between L2 and L3 vertebrae. The projection of the right lamina of the L3 vertebra was chosen as the starting point of the injection.? 22 gauge 3-1/2 inch pencil point needle was inserted through the skin after skin wheal was raised with lidocaine 2%.? The needle was directed to the L2-L3 interlaminar space.? The advancement of the needle was performed on intermittent anterior posterior and lateral views.? On anterior posterior view needle was kept strictly in the midline.? On the lateral view needle entered in the projection of the center of the spinal canal.? At that moment the stylet was removed from the needle and clear flow CSF was detected in the needle hub.? After that? 1 mL of the solution [id number] mcg of clonidine was injected into the needle.? After that needle was removed sterile dressing was applied.? Patient tolerated procedure well.? She was taken outside of the operating room to the recovery room where she recovered uneventfully.? Orders: Orders FL guidance in treatment room Today G89.4 - Chronic pain syndrome Coding Level of Care Code Procedure Only Diagnoses Sacroiliitis M46.1 Sacroiliac joint dysfunction of both sides M53.3 Postlaminectomy syndrome, lumbar M96.1 Chronic pain syndrome G89.4
[2024-07-26 13:19] VITALS: BP 136/77; PULSE 70; RESP 16; O2SAT 99
--- OUTSIDE RECORDS SUMMARY | 2024-07-26 15:15 | XMS_ITS | Encounter Summary ---
Author Organization [employer] Address [address] [facility] 7t [place] [address] Care Team Providers Care Customer Experience Consultant Name Role Phone Nicky Thibodeaux MD Primary Care Provider [phone]- [phone] Wu Manzo MD Unavailable Feroz Ascencio MD Unavailable [phone] Reason for Visit * Reason Comments Med Refill Encounter Details Date Type Department Care Team (Late st Contact Info) Description 04/09/2023 Refill [facility] 230 [place] [address] Nicky Thibodeaux MD 230 [place] [address] Pain Social History Tobacco Use Types Packs/Day [...] 09/14/2024 11:30 AM EDT Telemedicine [facility] MED[facility]INE [address] [place] [address] Nicky Thibodeaux MD [address] [place] [address] documented as of this encounter Visit Diagnoses Diagnosis Pain Generalized pain documented in this encounter Additional Health Concerns Assessment Noted Time PHQ-9 Depression Total Score: 22 023 2:09 PM EDT documented as of this encounter Care Teams Customer Experience Consultant Relationship Specialty Start Date End Date Nicky Thibodeaux MD [address] [place] [address] PCP - General Family Medicine 04/20/18 Wu Manzo MD [address] [place] [address] Pain Medicine 03/29/24 Feroz Ascencio MD [address] [place] [phone] Orthopaedic Surgery 06/15/24 Na Orozco Cooling Room AttendantHair Worker 06/25/23 Latia Guardado PA-C [facility] 04/26/24 documented as of this encounter
--- OUTSIDE RECORDS SUMMARY | 2024-07-26 15:15 | XMS_ITS | Encounter Summary ---
Author Organization [employer] Address [address] [facility] [address] 7t [place] [address] Care Team Providers Care Baggage Smasher Name Role Phone Nicky Thibodeaux MD Primary Care Provider [phone]- [phone] Wu Manzo MD Unavailable Feroz Ascencio MD Unavailable Reason for Visit * Reason Comments Med Refill Encounter Details Date Type Department Care Team ([facility] st Contact Info) Description 04/29/2023 Refill [facility] MED[facility]INE 230 [place] [address] Chelsi Canseco ANP 230 [place], [place] [phone] Social History Tobacco Use Types Packs/Day Years [...] Info) Description 09/14/2024 11:30 AM EDT Telemedicine [facility] MEDICINE 230 [place] [address] Nicky Thibodeaux MD [address] [place] [address] documented as of this encounter Visit Diagnoses Not on filedocumented in this encounter Additional Health Concerns Assessment Noted Time PHQ-9 Depression Total Score: 22 023 2:09 PM EDT documented as of this encounter Care Teams Baggage Smasher Relationship Specialty Start Date End Date Nicky Thibodeaux MD 230 [place] [address] PCP - General Family Medicine 04/20/18 Wu Manzo MD [address] [place] [address] Pain Medicine 03/29/24 Feroz Ascencio MD [address] [place] [phone] Orthopaedic Surgery 06/15/24 Na Orozco Glass Blower HelperCoffee Supervisor 06/25/23 Latia Guardado PA-C [facility] 04/26/24 documented as of this encounter
--- OUTSIDE RECORDS SUMMARY | 2024-07-26 15:15 | XMS_ITS | Encounter Summary ---
Author Organization [employer] Address [address] [facility] [address] 7t [place] [address] Care Team Providers Care Farm Management Adviser Name Role Phone Nicky Thibodeaux MD Primary Care Provider [phone]- [phone] Wu Manzo MD Unavailable Feroz Ascnecio MD Unavailable [phone] Encounter Details Date Type Department Care Team ([facility] st Contact Info) Description 03/11/2023 Abstract [facility] MEDICINE [address] [place], [place] [phone] Thuy Valenzuela Social History Tobacco Use Types [...] Info) Description 09/14/2024 11:30 AM EDT Telemedicine [facility] MEDICINE [address] [place] [address] Nicky Thibodeaux MD 230 [place] [address] documented as of this encounter Visit Diagnoses Not on filedocumented in this encounter Additional Health Concerns Assessment Noted Time PHQ-9 Depression Total Score: 22 023 2:09 PM EDT documented as of this encounter Care Teams Farm Management Adviser Relationship Specialty Start Date End Date Nicky Thibodeaux MD [address] [place] [address] PCP - General Family Medicine 04/20/18 Wu Manzo MD [address] [place] [address] Drive [address] [place] [address] Pain Medicine 03/29/24 Feroz Ascencio MD [address] [place] [phone] Orthopaedic Surgery 06/15/24 Na Orozco Order Management SpecialistFood Vendor 06/25/23 Latia Guardado PA-C [facility] 04/26/24 documented as of this encounter
--- OUTSIDE RECORDS SUMMARY | 2024-07-26 15:15 | XMS_ITS | Encounter Summary ---
Author Organization [employer] Address [address] [facility] [address] 7t [place] [address] Care Team Providers Care Political Science Faculty Member Name Role Phone Nicky Thibodeaux MD Primary Care Provider [phone]- [phone] Wu Manzo MD Unavailable Feroz Ascencio MD Unavailable [phone] Reason for Visit * Reason Onset Date Comments Med Refill 04/29/2023 Encounter Details Date Type Department Care Team (Late st Contact Info) Description 04/29/2023 Telephone [facility] MEDICINE 230 [place], [place] [phone] Nicky Thibodeaux MD 230 [place], [place] [phone] Med Refill Social History Tobacco Use Types [...] 500 MG tablet To be sent to: [facility]/pharmacy #[id number] documented in this encounter Plan of Treatment Upcoming Encounters Date Type Department Care Team (Late st Contact Info) Description 09/14/2024 11:30 AM EDT Telemedicine [facility] MEDICINE [address] [place] [address] Nicky Thibodeaux MD [address] [place] [address] documented as of this encounter Visit Diagnoses Not on filedocumented in this encounter Additional Health Concerns Assessment Noted Time PHQ-9 Depression Total Score: 22 023 2:09 PM EDT documented as of this encounter Care Teams Political Science Faculty Member Relationship Specialty Start Date End Date Nicky Thibodeaux MD [address] [place] [address] PCP - General Family Medicine 04/20/18 Wu Manzo MD [address] [place] [address] Drive [address] [place] [address] Pain Medicine 03/29/24 Feroz Ascencio MD [address] [place] [phone] Orthopaedic Surgery 06/15/24 Na Orozco Life ScientistsOveredger 06/25/23 Latia Guardado PA-C [facility] 04/26/24 documented as of this encounter
--- OUTSIDE RECORDS SUMMARY | 2024-07-26 15:16 | XMS_ITS | Encounter Summary ---
Author Organization [employer] Address [address] [facility] 7t [place] [address] Care Team Providers Care Silk Top Hat Body Maker Name Role Phone Nicky Thibodeaux MD Primary Care Provider [phone]- [phone] Wu Manzo MD Unavailable Feroz Ascencio MD Unavailable [phone] Reason for Visit * Reason Onset Date Comments Medication Question 12/11/2022 Encounter Details Date Type Department Care Team (Late st Contact Info) Description 12/11/2022 Telephone [facility] MEDICINE 230 [place] [address] Chelsi Canseco ANP 230 [place] [address] Medication Question Social History Tobacco Use Types [...] Info) Description 09/14/2024 11:30 AM EDT Telemedicine [facility] MEDICINE [address] [place] [address] Nicky Thibodeaux MD [address] [place] [address] documented as of this encounter Visit Diagnoses Diagnosis Essential (primary) hypertension Unspecified essential hypertension documented in this encounter Additional Health Concerns Assessment Noted Time PHQ-9 Depression Total Score: 22 023 2:09 PM EDT documented as of this encounter Care Teams Silk Top Hat Body Maker Relationship Specialty Start Date End Date Nicky Thibodeaux MD 230 [place] [address] PCP - General Family Medicine 04/20/18 Wu Manzo MD [address] [place] [address] Drive [address] [place] [address] Pain Medicine 03/29/24 Feroz Ascencio MD [address] [place] [phone] Orthopaedic Surgery 06/15/24 Na Orozco Commercial Lending AssistantHome Energy Auditor 06/25/23 Latia Guardado PA-C [facility] 04/26/24 documented as of this encounter
--- OUTSIDE RECORDS SUMMARY | 2024-07-26 15:16 | XMS_ITS | Clinical Summary ---
Author Organization [email or web address] Address [address] [place] [address] 7t [place] [address] Care Team Providers Care Pocket Marker Name Role Phone Nicky Thibodeaux MD Primary Care Provider [phone]- [phone] Wu Manzo MD Unavailable Feroz Ascencio MD Unavailable Allergies Active Allergy Reactions Criticality [...] with anxiety 50 mg. Active HYDROcodone-aceta minophen ([place]) 5-325 MG tabletIndications :Chronic low back pain, [...] (BMI) of 35.0 to 35.9 in adult ([facility]) Inject 0.5 mL (5 mg) under [...] due after 03/14/25 -eye care facilitated by [facility] -dental home is [facility] -[facility] care proxy paperwork completed by to the patient 07/17/23 Assessment & Plan (03/14/2024 11:23 AM EST): -next physical exam due after 03/14/25 -eye care facilitated by [facility] -dental home is [facility] -swap[facility] care proxy paperwork completed by to the patient 07/17/23 Assessment & Plan (11/19/2023 11:08 AM EDT): -next physical exam due after 12/11/23 -eye care facilitated by [facility] -dental home is [facility] -swap[facility] care proxy paperwork completed by to the patient 07/17/23 Assessment & Plan (07/17/2023 10:10 AM EDT): -next physical exam due after 12/11/23 -eye care facilitated by [facility] -dental home is [facility] -swap[facility] care proxy paperwork completed [...] the MRI image on the disc from [facility] where she had MRI performed. I also requested her to read brochures about [facility] [facility] and [employer]. Assessment & Plan (07/17/2023 10:03 AM EDT): Her pain is not controlled. Dillon asked her to reach out to her original prescriber for Vicodin at [facility]. She is 7 weeks post-op sugery and is weaning her percocet's. Dillon explained since she is on Ambien, gabapentin, and benzodiazapine I would not be able to safely prescribe the medications through our program. Assessment & Plan (12/15/2022 9:38 AM EDT): Her pain is not controlled. Dillon asked her to reach out to her original prescriber for Vicodin at [facility]. She is 7 weeks post-op sugery and is weaning her percocet's. Dillon explained since she is on Ambien, gabapentin, and benzodiazapine I would not be able to safely prescribe the medications through our program. Assessment & Plan (09/03/2022 12:12 PM EDT): Her pain is not controlled. Dillon asked her to reach out to her original prescriber for Vicodin at [facility]. She is 7 weeks post-op [...] considered to be 1.7 or 2.4 mg mcc. -BUZZ resubmitted 11/19/23 - Advised to Switch [...] considered to be 1.7 or 2.4 mg mcc. -BUZZ resubmitted 11/19/23 - Advised to Switch [...] considered to be 1.7 or 2.4 mg mcc. -PA resubmitted 11/19/23 Assessment & Plan (09/23/2023 [...] considered to be 1.7 or 2.4 mg mcc. Chronic low back pain 07/23/2022 Overview (03/14/2024): [...] severe pain. She is getting Vicodin from [facility]. She requests opiate medications from [...] pain. She sees a therapist and psychiatrist. -[employer] [place] prescribing hydrocodone/APA 5/325 to support instrumented activities [...] severe pain. She is getting Vicodin from [facility]. She requests opiate medications from [...] pain. She sees a therapist and psychiatrist. -[facility] [place] prescribing hydrocodone/APA 5/325 to support instrumented activities [...] severe pain. She is getting Vicodin from [facility]. She requests opiate medications [...] -Referral placed to Gynecology, Dr. Aaron 07/17/23 -[facility] called 09/23/23 stating pt declined appt [...] -Referral placed to Gynecology, Dr. Aaron 07/17/23 -[facility] called 09/23/23 stating pt declined appt due to having severe pain. Pt could just call and schedule appt when she's ready referral cancel. - Will complete Gynecological exam after receiving pain pump due to her severe pain 03/14/24 Assessment & Plan (11/19/2023 11:05 AM EDT): -Pap NILM, HPV positive 07/2021 -Colpo negative with Dr. aAron 08/2021 -cotesting due 1 year -Referral placed to Gynecology, Dr. Aaron 07/17/23 -[facility] 09/23/23 stating pt declined appt [...] left MARISELA 01/29/[address] Neal in [place] -s/p bilateral GT bursa injection under fluoroscopic guidance 06/13/24 with moderate reduction of pain in bilateral lateral hips -seen by ortho at [facility] 07/21/24 Hip pain 07/13/2012 [...] Type Department Care Team Description 07/17/2024 Refill [facility] [address] [place] [address] Nicky Thibodeaux MD Pain 07/01/2024 Population Health Risk Score Community [facility] (C3) Department [address] [place] [phone] Provider, Population Health Generic 06/30/2024 Refill [facility] [address] [place] [address] Nicky Thibodeaux MD Vitamin D deficiency; Chronic migraine without aura without status migrainosus, not intractable 06/27/2024 Refill [facility] [address] [place] [address] Nicky Thibodeaux MD Pain 06/22/2024 Refill [facility] [address] [place] [address] Nicky Thibodeaux MD 06/15/2024 Refill [facility] [address] [place] [address] Nicky Thibodeaux MD Asthma, unspecified asthma severity, unspecified whether complicated, unspecified whether persistent 06/09/2024 Telephone [facility] [place] [address] Nicky Thibodeaux MD Medication Question 06/07/2024 2:30 PM EST Clinical Support [facility] [address] [place] [address] America Robertson, RN Visit for wound care 06/07/2024 Travel 05/30/2024 Telephone [facility] [place] [place] [address] Nicky Thibodeaux MD PT1 05/30/2024 Telephone [facility] [place] [place] [address] Nicky Thibodeaux MD ER Follow-up 05/27/2024 Orders Only [facility] [address] [place] [address] Nicky Thibodeaux MD Primary insomnia (Primary Dx); Chronic low back pain, unspecified back pain laterality, unspecified whether sciatica present; Anxiety; Dyslipidemia; Depression with anxiety; Constipation, unspecified constipation type; Primary hypertension; Gastroesophageal reflux disease, unspecified whether esophagitis present; Class 2 severe obesity due to excess calories with serious comorbidity and body mass index (BMI) of 35.0 to 35.9 in adult ([facility]) 05/26/2024 Refill [facility] [address] [place] [address] Nicky Thibodeaux MD Pain 05/23/2024 Telephone [facility] [address] [place] [address] Nicky Thibodeaux MD Medication Question 05/16/2024 Refill [facility] [address] [place] [address] Nicky Thibodeaux MD Osteoarthritis of hip, unspecified laterality, unspecified osteoarthritis type 05/11/2024 Telephone [facility] [address] [place] [address] Nicky Thibodeaux MD Nurse Triage 05/02/2024 Telephone [facility] [address] [place] [address] [phone] Nicky Thibodeaux MD 04/27/2024 Refill [facility] [address] [place] [address] Nicky Thibodeaux MD Pain from Last 3 [...] EDT Telemedicine [facility] [address] [place] [address] Nicky Thibodeaux MD [address] [place] [address] Health Maintenance Due Date Last Done Comments [...] EST Narrative 05/28/2024 1:13 AM EST ? [facility] ?[address] ?[place] [address] ?XRay Report ? Signed ? Patient: Carol,Darcy F ?MR#: [id number] ?? [id number] ? : 1965 ?Acct:[id number] ? Age/Sex: 58 / F ?ADM Date: 05/28/24 ? Loc: HO.ED ? Attending Dr: ? Ordering Physician: Parish Zuñiga ?? Date of Service: 05/28/24 ?? Procedure(s): XR wrist LT min 3V ?? Accession Number(s): [id number] ? cc: Nicky Thibodeaux MD; Parish Zuñiga [...] DD/ 011 ? TD/TT: 05/28/24 011 ? Form Worker: ? Procedure Note Marcia Aguilar - 05/28/2024 [place] [address] [facility] [address] XRay Report Signed Patient: Darcy Medina FMR#: [id number] : 1965Acct:[id number] Age/Sex: 58 / FADM Date: 05/28/24 Loc: HO.ED Attending Dr: Ordering Physician: Parish Zuñiga Date of Service: 05/28/24 Procedure(s): XR wrist LT min 3V Accession Number(s): [id number] cc: Nicky Thibodeaux MD; Parish Zuñiga CLINICAL [...] 05/28/24 0112 DD/ 0111 TD/TT: 05/28/24 0111 Form Worker: [facility] External Provider IMG XR PROCEDURES Edited Result - Final * BI Mammogram Screening Tomosynthesis Bilateral (08/11/2023 1:05 PM EDT) Anatomical Region Laterality Modality Breast Bilateral Mammography 08/11/2023 1:05 PM EDT Narrative 08/22/2023 7:23 AM EDT ? [facility] ? [address] ?[place] [address] ? Mammography Report ? Signed ? Patient: Couture,Darcy F ?MR#: [id number] ?? 8104 ? : 1965 ?Acct:[id number] ? Age/Sex: 58 / F ?ADM Date: 04/23/24 ? Loc: HO.MAMMO ? Attending : Nicky Thibodeaux MD ? Ordering Physician: Nicky Thibodeaux MD ?Results: 2B ?? enign Findings ? Date of Service: 08/11/23 ?Follow Up: 1 Year From Orig ?? inal Mammogram ? Procedure(s): MM tomosynthesis screening BI ?? Accession Number(s): [id number] ? cc: Nicky Thibodeaux MD ? EXAMINATION: [...] ? 08/22/237[address] ? DD/ ? TD/TT: ? Form Worker: ? Procedure Note Jeff, Image - [facility] [address] [place] [address] Mammography Report Signed Patient: Darcy Medina FMR#: [id number] : 1965Acct:[id number] Age/Sex: 58 / FADM Date: 08/11/23 Loc: HO.MAMMO Attending Dr: Nicky Thibodeaux MD Ordering Physician: Nicky Thibodeaux MDResults: 2B enign Findings Date of Service: 08/11/23Follow Up: 1 Year From Orig inal Mammogram Procedure(s): MM tomosynthesis screening BI Accession Number(s): [id number] cc: Nicky Thibodeaux MD EXAMINATION: MM SCREENING [...] in OV> 08/22/23 0719 DD/ 1305 TD/TT: Form Worker: Nicky Thibodeaux MD IMG BI PROCEDURES Edited R esult - Final * (ABNORMAL) Lipid Panel, Standard (07/17/2023 10:24 AM EDT) Triglycerides 168(H) <150 mg/dL [facility] Comment:Desirable Triglyceri de: less than 150 mg/dLBorderline High Triglyceride 150-199 mg/dLHigh Triglyceride: 200-499 mg/dLVery High Triglyceride: greater than or equal to 5OO mg/dL Cholesterol 219(H) <200 mg/dL [facility] Comment:Desirable Cholestero l: less than 200 mg/dLBorderline High Cholesterol: 200-239 mg/dLHigh Cholesterol: greater than 239 mg/dL LDL Cholesterol Calculated 137(H) <100 mg/dL [facility] Comment:Desirable LDL: less than 100 mg/dLNear Optimal/Above Optimal LDL: 110- 129 mg/dLBorderline High LDL: 130-159 mg/dLHigh LDL: 160-189 mg/dLVery High LDL: greater than or equal to 190 mg/dL HDL Cholesterol 49 >40 mg/dL [facility] Comment:Desirable HDL: great er than 40 mg/dL Note: This HDL assay may give artificially low results in patients with liver disease. Blood Venous blood specimen / Unknown 07/17/2023 10:24 AM EDT 07/17/2023 11:19 AM EDT Nicky Thibodeaux MD LAB BLOOD ORDERABLES Final Result [facility] [address] [place] [phone] * Hepatitis C Antibody with Reflex to HCV, RNA, Quantitative, Real-Time PCR (09/03/2022 11:58 AM EDT) Hepatitis C Antibody NON-REACT DILLON NON-REACT DILLON [facility] [place] [facility] Index 0.02 <1.00 [facility] [place] [facility] Comment: HCV antibody was non-reactive. There is no laboratory evidence of HCV infection. In most cases, no further action is required. However, if recent HCV exposure is suspected, a test for HCV RNA (test code 69930) is suggested. For additional information please refer to http://JumpSeat.Echo it/faq/OER77t4 (This link is being provided for informational/ educational purposes only.) Blood Venous blood specimen / Unknown 09/03/2022 11:58 AM EDT 09/03/2022 11:58 AM EDT Narrative [facility] - 09/07/2022 11:33 PM EDT FASTING:YES FASTING: YES us Nicky Thibodeaux MD LAB BLOOD ORDERABLES Final Result [facility] [address], [place] [address] [facility] [place] [facility] [address] [place] [address] * HIV-1/2 Antigen and Antibodies, Fourth Generation, with Reflexes (09/03/2022 11:58 AM EDT) Pathologist [facility] HIV Antigen/Antibody, 4th Generation NON-REAC TIVE NON-REAC TIVE [facility] [place] [facility] Comment: HIV-1 antigen and HIV-1/HIV-2 antibodies [...] ?? For additional information please refer to http://JumpSeat.Echo it/faq/DWC594 (This link is being provided for informational/ educational purposes only.) The performance of this assay has not been clinically validated in patients less than 2 years old. Blood Venous blood specimen / Unknown 09/03/2022 11:58 AM EDT 09/03/2022 11:58 AM EDT Narrative [facility] - 09/07/2022 11:33 PM EDT FASTING:YES FASTING: YES us Nicky Thibodeaux MD LAB BLOOD ORDERABLES Final Result [facility] [address] [facility], [place] [address] [facility] [address] [place] [address] * (ABNORMAL) THINPREP TIS PAP AND HPV mRNA E6/E7, CT/NG, TRICH (08/02/2021 11:49 AM EDT) Chlamydia trachomatis RNA, TMA, Urogenital NOT DETECTED NOT DETECTED [facility] Clinical Information: None given [facility] COMMENT SEE COMMENT [facility] Comment: The analytical performance characteristics of this assay, when used to test SurePath(TM) specimens have been determined by [facility]. The modifications have not been cleared or approved by the FDA. This assay has been validated pursuant to the CLIA regulations and is used for clinical purposes. ?? For additional information, please refer to https://education.Echo it/faq/QTJ135 (This link is being provided for information/ [...] has been evaluated with computer assisted technology. [facility] Rider Ticket Worker: SEE COMMENT [facility] Comment: DCR, CT(ASCP) CT screening location: [address] ??[address] HPV nRNA E6/E7 Detected(A) Not Detected [facility] Comment: Methodology: Data Steward-Mediated Amplification This assay detects E6/E7 viral messenger RNA (mRNA) from 14 high-risk HPV types (16,18,31,33,35,39,45,51,52,56,58,59,66,68). ? The analytical performance characteristics of this assay have been determined by [facility]. The modifications have not been cleared or approved by the FDA. This assay has been validated pursuant to the CLIA regulations and is used for clinical purposes. ?? For additional information, please refer to http://JumpSeat.Echo it/faq/RNZ024l7 (This link if provided for information/ educational [...] NONE GIVEN [facility] Review Rider Ticket Worker: SEE COMMENT [facility] Comment: JXM, CT(ASCP) CT screening location: [address] ??[address] SOURCE: None given [facility] Statement Of Adequacy: SATISFACTORY FOR EVALUATION [facility] Trichomonas vaginalis, QL, TMA, PAP Vial NOT DETECTED NOT DETECTED [facility] Comment: The analytical performance characteristics of this assay have been determined by [facility]. The modifications have not been cleared or approved by the FDA. This assay has been validated pursuant to the CLIA regulations and is used for clinical purposes. ?? For additional information, please refer to http://JumpSeat.Echo it/ faq/Trichomonastma (This link is being provided for information/ educational purposes only.) ?? 08/02/2021 11:4 9 AM EDT Nicky Thibodeaux MD LAB PATHOLOGY ORDERABLES F inal Result [facility] [address] [place] [address], * Pap Smear (08/02/2021 12:00 AM EDT) Swab Nicky Thibodeaux MD LAB CYTOLOGY ORDERABLES Fi nal Result [facility] [address] [place] [address] [phone] * Hm Colonoscopy (12/11/2015) Colonoscopy normal with Dr. Danny Norman us Historical Provider HEALTH MAINTENANCE Final Result from Last 3 Months or Most Recently Relevant to Health Maintenance Insurance [facility] C3 DENTAL-[facility] MEDICAID STAND ADULT Advance Directives Documents on File Type Date Recorded Patient Networking Specialist Expl anation Advance Directives and Living Will 07/17/2023 Health Care Proxy 07/17/23 Care Teams Pocket Marker Relationship Specialty Start Date End Date [place], MD Nicky [address] [place] [address] PCP - General Family Medicine 04/20/18 Wu Manzo MD [address] [place] [address] Drive [address] [place] [address] Pain Medicine 03/29/24 Feroz Ascencio MD [address] [place] [phone] Orthopaedic Surgery 06/15/24 Na Orozco Clinical Applications SpecialistWedding Planner 06/25/23 Latia Guardado PA-C [facility] 04/26/24
--- OUTSIDE RECORDS SUMMARY | 2024-07-26 15:16 | XMS_ITS | Encounter Summary ---
Author Organization [employer] Address [address] [facility] 7t [place] [address] Care Team Providers Care Concrete Stone Fabricating Supervisor Name Role Phone Nicky Thibodeaux MD Primary Care Provider [phone] Wu Manzo MD Unavailable Feroz Ascencio MD Unavailable [phone] Reason for Visit * Reason Onset Date Comments Durable Medical Equipment 08/07/2022 Encounter Details Date Type Department Care Team (Late st Contact Info) Description 08/07/2022 Telephone [facility] [address] [place], [place] [phone] Nicky Thibodeaux MD [address] [place], [place] [phone] Durable Medical Equipment Social History Tobacco Use [...] - 08/14/2022 9:23 AM EDT Tc from [facility] requesting status on a form send over for [facility]. Please contact Renzo at [phone] * Telephone Encounter - Wellington Smith - 08/07/2022 9:57 AM EDT Tc from [facility] with [facility] requesting a status on a form sent over for a [facility] Grab [facility]. Please contact renzo at [phone] documented in this encounter Plan of Treatment Upcoming Encounters Date Type Department Care Team (Late st Contact Info) Description 09/14/2024 11:30 AM EDT Telemedicine [facility] [address] [place] [phone] Nicky Thibodeaux MD [address] [place] [address] documented as of this encounter Visit Diagnoses Not on filedocumented in this encounter Additional Health Concerns Assessment Noted Time PHQ-9 Depression Total Score: 22 023 2:09 PM EDT documented as of this encounter Care Teams Concrete Stone Fabricating Supervisor Relationship Specialty Start Date End Date Nicky Thibodeaux MD [address] [place] [address] PCP - General Family Medicine 04/20/18 Wu Manzo MD [address] [place] [address] Pain Medicine 03/29/24 Feroz Ascencio MD [address] [place] [address] Orthopaedic Surgery 06/15/24 Na Orozco Auto Body TechnicianFoamite Mixer 06/25/23 TREASURE [facility] 04/26/24 documented as of this encounter
--- OUTSIDE RECORDS SUMMARY | 2024-07-26 15:16 | XMS_ITS | Encounter Summary ---
Author Organization [employer] Address [address] [place] [address] 7t [place] [address] Care Team Providers Care Technical Sales Specialist Name Role Phone Nicky Thibodeaux MD Primary Care Provider [phone]- [phone] Wu Manzo MD Unavailable Feroz Ascencio MD Unavailable [phone] Encounter Details Date Type Department Care Team (Late Contact Info) Description 05/22/2022 Orders Only [facility] [address] [place] [address] [phone] Nereida Horner LPN Social History Tobacco Use [...] Info) Description 09/14/2024 11:30 AM EDT Telemedicine [facility] [address] [place] [address] [phone] Nicky Thibodeaux MD [address] [place], [place] [phone] documented as of this encounter Visit Diagnoses Not on filedocumented in this encounter Care Teams Technical Sales Specialist Relationship Specialty Start Date End Date Nicky Thibodeaux MD [address] [place] [address] [phone] PCP - General Family Medicine 04/20/18 Wu Manzo MD [address] [place] [address] Pain Medicine 03/29/24 Feroz Ascencio MD [address] [place] [phone] Orthopaedic Surgery 06/15/24 Na Orozco Mobile Home ServicerFelter Tennis Balls 06/25/23 [facility] 04/26/24 documented as of this encounter
--- OUTSIDE RECORDS SUMMARY | 2024-07-26 15:16 | XMS_ITS | Encounter Summary ---
Author Organization [email or web address] Address [address] [place] [address] 7t [place] [address] Care Team Providers Care Supervisor Landscape Name Role Phone Nicky Thibodeaux MD Primary Care Provider [phone] Wu Manzo MD Unavailable Feroz Ascencio MD Unavailable [phone] Reason for Visit * Reason Comments Med Refill Encounter Details Date Type Department Care Team (Late Contact Info) Description 12/11/2022 Refill [facility] [address] [place] [address] [phone] Nicky Thibodeaux MD [address] [place] [address] [phone] Social History Tobacco Use Types Packs/Day Years [...] Info) Description 09/14/2024 11:30 AM EDT Telemedicine [facility] [address] [place] [phone] Nicky Thibodeaux MD [address] [place], [place] [phone] documented as of this encounter Visit Diagnoses Not on filedocumented in this encounter Additional Health Concerns Assessment Noted Time PHQ-9 Depression Total Score: 22 023 2:09 PM EDT documented as of this encounter Care Teams Supervisor Landscape Relationship Specialty Start Date End Date Nicky Thibodeaux MD [address] [place] [address] PCP - General Family Medicine 04/20/18 Wu Manzo MD [address] [place] [address] Drive [address] [place] [address] Pain Medicine 03/29/24 Feroz Ascencio MD [address] [place] [phone] Orthopaedic Surgery 06/15/24 Na Orozco Gettering Filament Machine OperatorRock Splitter 06/25/23 T[facility]URE [facility] 04/26/24 documented as of this encounter
--- OUTSIDE RECORDS SUMMARY | 2024-07-26 15:16 | XMS_ITS | Encounter Summary ---
Author Organization [employer] Address [address] [facility] [address] [address] 7t [place] [address] Care Team Providers Care Member Service Specialist Name Role Phone Nicky Thibodeaux MD Primary Care Provider [phone] Wu Manzo MD Unavailable Feroz Ascencio MD Unavailable [phone] Reason for Visit * Reason Onset Date Comments [place] 10/12/2023 Encounter Details Date Type Department Care Team ([facility] st Contact Info) Description 10/12/[address] [facility] [address] [place], [place] [phone] Nicky Thibodeaux MD [address] [place], [place] [phone] [place] Social History Tobacco Use Types Packs/Day [...] Info) Description 09/14/2024 11:30 AM EDT Telemedicine [facility] [address] [place] [address] Nicky Thibodeaux MD [address] [place] [address] documented as of this encounter Visit Diagnoses Not on filedocumented in this encounter Additional Health Concerns Assessment Noted Time PHQ-9 Depression Total Score: 22 023 2:09 PM EDT documented as of this encounter Care Teams Member Service Specialist Relationship Specialty Start Date End Date Nicky Thibodeaux MD [address] [place] [address] PCP - General Family Medicine 04/20/18 Wu Manzo MD [address] [place] [address] Pain Medicine 03/29/24 Feroz Ascencio MD [address] [place] [phone] Orthopaedic Surgery 06/15/24 Na Orozco Pace AnalystDuct Installer 06/25/23 T[facility]URE [facility] 04/26/24 documented as of this encounter
--- OUTSIDE RECORDS SUMMARY | 2024-07-26 15:16 | XMS_ITS | Clinical Summary ---
Author Organization [facility] Address [address] [place] [address] Care Team Providers Care Obiee Consultant Name Role Phone Nicky Thibodeaux MD Primary Care Provider +1- [phone] Social History Tobacco Use Types Packs/Day Years [...] age to complete this topic Care Teams Obiee Consultant Relationship Specialty Start Date End Date Nicky Thibodeaux MD [address] [place] [phone] PCP - General Internal Medicine 12/21/13
--- OUTSIDE RECORDS SUMMARY | 2024-07-26 15:16 | XMS_ITS | Encounter Summary ---
Author Organization [email or web address] Address [address] [place] [address] 7t [place] [address] Care Team Providers Care Control And Recovery Combat Rescue Name Role Phone Nicky Thibodeaux MD Primary Care Provider +1- [phone] Wu Manzo MD Unavailable Feroz Ascencio MD Unavailable [phone] Reason for Visit * Reason Comments Med Refill Encounter Details Date Type Department Care Team (Late st Contact Info) Description 2022 Refill [facility] [address] [place] [phone] Krystin Frederick, GRACIELA [address] [place] [address] Dept of [place] [address] Chronic migraine without aura without status migrainosus, [...] Info) Description 09/14/2024 11:30 AM EDT Telemedicine [facility] MEDICINE 230 [place], [place] [phone] Nicky Thibodeaux MD 230 [place], [place] [phone] documented as of this encounter Visit Diagnoses Diagnosis Chronic migraine without aura without status migrainosus, not intractable documented in this encounter Care Teams Control And Recovery Combat Rescue Relationship Specialty Start Date End Date [place], [place] Nicky 230 [place] [address] PCP - General Family Medicine 04/20/18 Wu Manzo MD [address] [place] [address] Pain Medicine 03/29/24 Feroz Ascencio MD [address] [place] [phone] Orthopaedic Surgery 06/15/24 Na Orozco Retail Field SupervisorChef Broiler Or Fry 06/25/23 TREASURE [facility] 04/26/24 documented as of this encounter
--- OUTSIDE RECORDS SUMMARY | 2024-07-26 15:16 | XMS_ITS | Encounter Summary ---
Author Organization [employer] Address [address] 7t [place] [address] Care Team Providers Care Bow String Maker Name Role Phone Nicky Thibodeaux MD Primary Care Provider +1- [phone] Wu Manzo MD Unavailable Feroz Ascencio MD Unavailable [phone] Reason for Visit * Reason Onset Date Comments PT-1 12/08/2023 Encounter Details Date Type Department Care Team (Late st Contact Info) Description 12/08/2023 Telephone [facility] MEDICINE 230 [place], [place] [phone] Nicky Thibodeaux MD 230 [place], [place] [phone] PT-1 Social History Tobacco Use Types Packs/Day [...] Y/N: Yes Provider name or facility name: [facility] pain management Facility Address: [address] [place] [address] Escort needed: Y/N: No Do you have a wheelchair: Y/N: No If yes- Manual or electric: N/A (uses walker) Visits: twice a month documented in this encounter Plan of Treatment Upcoming Encounters Date Type Department Care Team (Late st Contact Info) Description 09/14/2024 11:30 AM EDT Telemedicine [facility] MEDICINE [address] [place] [phone] Nicky Thibodeaux MD 230 [place] [address] documented as of this encounter Visit Diagnoses Not on filedocumented in this encounter Additional Health Concerns Assessment Noted Time PHQ-9 Depression Total Score: 22 023 2:09 PM EDT documented as of this encounter Care Teams Bow String Maker Relationship Specialty Start Date End Date Nicky Thibodeaux MD [address] [place] [address] PCP - General Family Medicine 04/20/18 Wu Manzo MD [address] [place] [address] Drive [address] [place] [address] Pain Medicine 03/29/24 Feroz Ascencio MD [address] [place] [phone] Orthopaedic Surgery 06/15/24 Na Orozco PiecerSql Report Developer 06/25/23 TREASURE [facility] 04/26/24 documented as of this encounter
--- OUTSIDE RECORDS SUMMARY | 2024-07-26 15:16 | XMS_ITS | Encounter Summary ---
Author Organization [employer] Address [address] 7t [place] [address] Care Team Providers Care Biofuels Operations Manager Name Role Phone Nicky Thibodeaux MD Primary Care Provider +1- [phone] Wu Manzo MD Unavailable Feroz Ascencio MD Unavailable [phone] Reason for Visit * Reason Onset Date Comments Pre-visit Planning 11/09/2023 Encounter Details Date Type Department Care Team (Late st Contact Info) Description 11/09/2023 Telephone [facility] MEDICINE 230 [place] [address] Nicky Thibodeaux MD 230 [place] [address] Pre-visit Planning Social History Tobacco Use Types [...] Info) Description 09/14/2024 11:30 AM EDT Telemedicine [facility] MEDICINE 230 [place] [address] Nicky Thibodeaux MD 230 [place] [address] documented as of this encounter Visit Diagnoses Not on filedocumented in this encounter Additional Health Concerns Assessment Noted Time PHQ-9 Depression Total Score: 22 023 2:09 PM EDT documented as of this encounter Care Teams Biofuels Operations Manager Relationship Specialty Start Date End Date Nicky Thibodeaux MD 230 [place] [address] PCP - General Family Medicine 04/20/18 Wu Manzo MD [address] [place] [address] Pain Medicine 03/29/24 Feroz Ascencio MD [address] [place] [phone] Orthopaedic Surgery 06/15/24 Na Orozco Dj InstructorManager Field 06/25/23 TREASURE [facility] 04/26/24 documented as of this encounter
--- OUTSIDE RECORDS SUMMARY | 2024-07-26 15:16 | XMS_ITS | Encounter Summary ---
Author Organization [employer] Address [address] [place] [address] 7t [place] [address] Care Team Providers Care Electromechanical Technologist Name Role Phone Nicky Thibodeaux MD Primary Care Provider +1- [phone] Wu Manzo MD Unavailable Feroz Ascencio MD Unavailable [phone] Encounter Details Date Type Department Care Team (Late st Contact Info) Description 05/05/2022 Abstract [facility] MEDICINE [address] [place] [address] [phone] Nicky Thibodeaux MD [address] [place] [address] [phone] Social History Tobacco Use Types Packs/Day Years [...] 09/14/2024 11:30 AM EDT Telemedicine [facility] MEDICINE [address] [place] [address] [phone] Nicky Thibodeaux MD [address] [place] [address] [phone] documented as of this encounter Procedures Procedure Name Priority Date/Time Associated Diagnosis Comments COLPOSCOPY Routine 09/11/2021 12:00 AM EDT PAP SMEAR Routine 08/02/2021 12:00 AM EDT MAMMOGRAPHY Routine 10/29/2020 COLONOSCOPY Routine 12/11/2015 documented in this encounter Results * Colposcopy (09/11/2021 12:00 AM EDT) Historical Provider IN CLINIC/BEDSIDE ORDERAB LES Final Result Performing Organization Address [facility]/ZIP Co de Phone Number [facility] [address] [place] [address] [phone] * Pap Smear (08/02/2021 12:00 AM EDT) Swab Nicky Thibodeaux MD LAB CYTOLOGY ORDERABLES Fi nal Result Performing Organization Address [facility]/ZIP Co de Phone Number [facility] [address] [place] [address] [phone] * Mammography (10/29/2020) Mammogram BIRADS 2 Anatomical Region Laterality Modality Other Historical Provider HEALTH MAINTENANCE Final Result * Colonoscopy (12/11/2015) Colonoscopy normal with Dr. Delgado Historical Provider HEALTH MAINTENANCE Final Result documented in this encounter Visit Diagnoses Not on filedocumented in this encounter Care Teams Electromechanical Technologist Relationship Specialty Start Date End Date Nicky Thibodeaux MD [address] [place] [address] PCP - General Family Medicine 04/20/18 Wu Manzo MD [address] [place] [address] Pain Medicine 03/29/24 Feroz Ascencio MD [address] [place] [phone] Orthopaedic Surgery 06/15/24 Na Sherried Psychiatry InstructorRisk Management Consultant 06/25/23 TREASURE [facility] 04/26/24 documented as of this encounter
--- OUTSIDE RECORDS SUMMARY | 2024-07-26 15:16 | XMS_ITS | Encounter Summary ---
Author Organization [employer] Address [address] [facility] 7t [place] [address] Care Team Providers Care Environmental Services Specialist Name Role Phone Nicky Thibodeaux MD Primary Care Provider [phone]- [phone] Wu Manzo MD Unavailable Feroz Ascencio MD Unavailable [phone] Encounter Details Date Type Department Care Team ([facility] Contact Info) Description 08/12/2022 Orders Only [facility] MEDICINE 230 [place] [address] Nicky Thibodeaux MD 230 [place], [place] [phone] Social History Tobacco Use Types Packs/Day Years [...] Upcoming Encounters Date Type Department Care Team ([facility] Contact Info) Description 09/14/2024 11:30 AM EDT Telemedicine [facility] MEDICINE 230 [place] [address] Nicky Thibodeaux MD 230 [place] [address] documented as of this encounter Visit Diagnoses Not on filedocumented in this encounter Additional Health Concerns Assessment Noted Time PHQ-9 Depression Total Score: 22 023 2:09 PM EDT documented as of this encounter Care Teams Environmental Services Specialist Relationship Specialty Start Date End Date Nicky Thibodeaux MD 230 [place] [address] PCP - General Family Medicine 04/20/18 Wu Manzo MD [address] [place] [address] Drive [address] [place] [address] Pain Medicine 03/29/24 Feroz Ascencio MD [address] [place] [phone] Orthopaedic Surgery 06/15/24 Na Orozco Diaper FolderForm Builder 06/25/23 Latia Guardado PA-C [facility] 04/26/24 documented as of this encounter
--- OUTSIDE RECORDS SUMMARY | 2024-07-26 15:16 | XMS_ITS | Encounter Summary ---
Author Organization [employer] Address [address] [facility] 7t [place] [address] Care Team Providers Care Import And Export Clerk Name Role Phone Nicky Thibodeaux MD Primary Care Provider +1- [phone] Wu Manzo MD Unavailable Feroz Ascencio MD Unavailable [phone] Reason for Visit * Reason Comments Med Refill Encounter Details Date Type Department Care Team ([facility] Contact Info) Description 08/26/2022 Refill [facility] [address] [place] [address] Nicky Thibodeaux MD 230 [place] [address] Pain Social History Tobacco Use Types Packs/Day [...] Upcoming Encounters Date Type Department Care Team ([facility] Contact Info) Description 09/14/2024 11:30 AM EDT Telemedicine [facility] MEDICINE 230 [place] [address] Nicky Thibodeaux MD 230 [place] [address] documented as of this encounter Visit Diagnoses Diagnosis Pain Generalized pain documented in this encounter Additional Health Concerns Assessment Noted Time PHQ-9 Depression Total Score: 22 023 2:09 PM EDT documented as of this encounter Care Teams Import And Export Clerk Relationship Specialty Start Date End Date Nicky Thibodeaux MD 230 [place] [address] PCP - General Family Medicine 04/20/18 Wu Manzo MD [address] [place] [address] [address] [place] [address] Pain Medicine 03/29/24 Feroz Ascencio MD [address] [place] [phone] Orthopaedic Surgery 06/15/24 Na Orozco Compressor Station Chief EngineerWarranty Administrator 06/25/23 TREASURE [facility] 04/26/24 documented as of this encounter
--- OUTSIDE RECORDS SUMMARY | 2024-07-26 15:16 | XMS_ITS | Encounter Summary ---
Author Organization [employer] Address [address] [facility] 7t [place] [address] Care Team Providers Care Value Stream Manager Name Role Phone Nicky Thibodeaux MD Primary Care Provider [phone]- [phone] Wu Manzo MD Unavailable Feroz Ascencio MD Unavailable [phone] Encounter Details Date Type Department Care Team (Latest Contact Info) Description 04/05/2021 Abstract [facility] CONVERSIONS Dental, Provider, DDS Social History Tobacco [...] Info) Description 09/14/2024 11:30 AM EDT Telemedicine [facility] MEDICINE 230 [place] [address] Nicky Thibodeaux MD 230 [place] [address] documented as of this encounter Visit Diagnoses Not on filedocumented in this encounter Care Teams Value Stream Manager Relationship Specialty Start Date End Date Nicky Thibodeaux MD 230 [place], [place] [phone] PCP - General Family Medicine 04/20/18 Wu Manzo MD [address] [place] [address] Pain Medicine 03/29/24 Feroz Ascencio MD [address] [place] [phone] Orthopaedic Surgery 06/15/24 Na Orozco Wader Boot Top AssemblerDyed Raw Stock Blower Feeder 06/25/23 TREASURE [facility] 04/26/24 documented as of this encounter
--- OUTSIDE RECORDS SUMMARY | 2024-07-26 15:16 | XMS_ITS | Encounter Summary ---
Author Organization [employer] Address [address] 7t [place] [address] Care Team Providers Care Tool Design Draftsperson Name Role Phone Nicky Thibodeaux MD Primary Care Provider +1- [phone] Wu Manzo MD Unavailable Feroz Ascencio MD Unavailable [phone] Reason for Visit * Reason Comments Med Refill Encounter Details Date Type Department Care Team (Late st Contact Info) Description 05/26/2024 Refill [facility] MEDICINE 230 [place] [address] Nicky Thibodeaux MD 230 [place] [address] Pain Social History Tobacco Use Types Packs/Day [...] EDT Telemedicine [facility] MEDICINE [address] [place] [address] Nicky Thibodeaux MD 230 [place] [address] documented as of this encounter Visit Diagnoses Diagnosis Pain Generalized pain documented in this encounter Additional Health Concerns Assessment Noted Time PHQ-9 Depression Total Score: 14 024 10:51 AM EST documented as of this encounter Care Teams Tool Design Draftsperson Relationship Specialty Start Date End Date Nicky Thibodeaux MD 230 [place] [address] PCP - General Family Medicine 04/20/18 Wu Manzo MD [address] [place] [address] Pain Medicine 03/29/24 Feroz Ascencio MD [address] [place] [phone] Orthopaedic Surgery 06/15/24 Na Orozco Mattress And Boxsprings SupervisorConstruction Inspector 06/25/23 TREASURE [facility] 04/26/24 documented as of this encounter
--- OUTSIDE RECORDS SUMMARY | 2024-07-26 15:16 | XMS_ITS | Encounter Summary ---
Author Organization [employer] Address [address] [facility] 7t [place] [address] Care Team Providers Care Audio Operator Name Role Phone Nicky Thibodeaux MD Primary Care Provider [phone]- [phone] Wu Manzo MD Unavailable Feroz Ascencio MD Unavailable [phone] Reason for Visit * Reason Comments Med Refill Encounter Details Date Type Department Care Team (Late st Contact Info) Description 09/30/2022 Refill [facility] MEDICINE 230 [place] [address] Deborah Stratton MD 230 [place] [address] Chronic migraine without aura without status migrainosus, [...] 09/14/2024 11:30 AM EDT Telemedicine [facility] MEDICINE 230 [place] [address] Nicky Thibodeaux MD 230 [place] [address] documented as of this encounter Visit Diagnoses Diagnosis Chronic migraine without aura without status migrainosus, not intractable documented in this encounter Additional Health Concerns Assessment Noted Time PHQ-9 Depression Total Score: 22 023 2:09 PM EDT documented as of this encounter Care Teams Audio Operator Relationship Specialty Start Date End Date Nicky Thibodeaux MD 230 [place] [address] PCP - General Family Medicine 04/20/18 Wu Manzo MD [address] [place] [address] Drive [address] [place] [address] Pain Medicine 03/29/24 Feroz Ascencio MD [address] [place] [phone] Orthopaedic Surgery 06/15/24 Na Orozco Simulation TechDelivery Lead 06/25/23 TREASURE [facility] 04/26/24 documented as of this encounter
--- OUTSIDE RECORDS SUMMARY | 2024-07-26 15:16 | XMS_ITS | Encounter Summary ---
Author Organization [employer] Address [address] 7t [place] [address] Care Team Providers Care Commander Internal Affairs Name Role Phone Nicky Thibodeaux MD Primary Care Provider +1- [phone] Wu Manzo MD Unavailable Feroz Ascencio MD Unavailable [phone] Encounter Details Date Type Department Care Team ([facility] st Contact Info) Description 2023 Orders Only [facility] MEDICINE 230 [place], [place] [phone] Nicky Thibodeaux MD 230 [place], [place] [phone] Social History Tobacco Use Types Packs/Day Years [...] Info) Description 09/14/2024 11:30 AM EDT Telemedicine [facility] MEDICINE [address] [place] [address] Nicky Thibodeaux MD 230 [place] [address] documented as of this encounter Visit Diagnoses Not on filedocumented in this encounter Additional Health Concerns Assessment Noted Time PHQ-9 Depression Total Score: 22 023 2:09 PM EDT documented as of this encounter Care Teams Commander Internal Affairs Relationship Specialty Start Date End Date Nicky Thibodeaux MD 230 [place] [address] PCP - General Family Medicine 04/20/18 Wu Manzo MD [address] [place] [address] Pain Medicine 03/29/24 Feroz Ascencio MD [address] [place] [phone] Orthopaedic Surgery 06/15/24 Na Orozco Real Estate Sales AssociateMiller Wood Flour 06/25/23 Latia Guardado PA-C [facility] 04/26/24 documented as of this encounter
--- OUTSIDE RECORDS SUMMARY | 2024-07-26 15:16 | XMS_ITS | Encounter Summary ---
Author Organization [employer] Address [address] 7t [place] [address] Care Team Providers Care Chief Inspector Name Role Phone Nicky Thibodeaux MD Primary Care Provider [phone]- [phone] Wu Manzo MD Unavailable Feroz Ascencio MD Unavailable [phone] Reason for Visit * Reason Comments Med Refill Encounter Details Date Type Department Care Team (Late st Contact Info) Description 05/19/2023 Refill [facility] MEDICINE 230 [place] [address] Nicky Thibodeaux MD 230 [place], [place] [phone] Asthma, unspecified asthma severity, unspecified whether complicated, [...] Info) Description 09/14/2024 11:30 AM EDT Telemedicine [facility] MEDICINE 230 [place] [address] Nicky Thibodeaux MD [address] [place] [address] documented as of this encounter Visit Diagnoses Diagnosis Asthma, unspecified asthma severity, unspecified whether complicated, unspecified whether persistent documented in this encounter Additional Health Concerns Assessment Noted Time PHQ-9 Depression Total Score: 22 023 2:09 PM EDT documented as of this encounter Care Teams Chief Inspector Relationship Specialty Start Date End Date Nicky Thibodeaux MD [address] [place] [address] PCP - General Family Medicine 04/20/18 Wu Manzo MD [address] [place] [address] Pain Medicine 03/29/24 Feroz Ascencio MD [address] [place] [phone] Orthopaedic Surgery 06/15/24 Na Orozco Fast Food CookManager Harbor 06/25/23 Latia Guardado PA-C [facility] 04/26/24 documented as of this encounter
--- OUTSIDE RECORDS SUMMARY | 2024-07-26 15:16 | XMS_ITS | Encounter Summary ---
Author Organization [employer] Address [address] 7t [place] [address] Care Team Providers Care Teamcenter Consultant Name Role Phone Nicky Thibodeaux MD Primary Care Provider [phone]- [phone] Wu Manzo MD Unavailable Feroz Ascencio MD Unavailable [phone] Reason for Visit * Reason Onset Date Comments Nurse Triage 05/11/2024 Encounter Details Date Type Department Care Team (Late st Contact Info) Description 05/11/2024 Telephone [facility] MEDICINE 230 [place], [place] [phone] Nicky Thibodeaux MD 230 [place], [place] [phone] Nurse Triage Social History Tobacco Use Types [...] or Thursday.Pt wants appt on Thursday when MASTER HEARTH TECHNICIAN is available to bring pt. Reviewed [facility] operating hours and that wait times vary. Unable to book sick on site > 48 hours. Pt advised can call back on Thursday for Thursday scheduled. Reviewed home care advise, ER precautions and reasons to call back. Protocol Used: Dizziness (Adult) Protocol-Based Disposition: Discuss with PCP and Callback by Nurse Today Sent to PCP and [place] team Primary care nurses for follow up [...] Info) Description 09/14/2024 11:30 AM EDT Telemedicine [facility] MEDICINE 230 [place] [address] Nicky Thibodeaux MD 230 [place] [address] documented as of this encounter Visit Diagnoses Not on filedocumented in this encounter Additional Health Concerns Assessment Noted Time PHQ-9 Depression Total Score: 14 024 10:51 AM EST documented as of this encounter Care Teams Teamcenter Consultant Relationship Specialty Start Date End Date Nicky Thibodeaux MD 230 [place] [address] PCP - General Family Medicine 04/20/18 Wu Manzo MD [address] [place] [address] Pain Medicine 03/29/24 Feroz Ascencio MD [address] [place] [phone] Orthopaedic Surgery 06/15/24 Na Orozco Manager FederalGrinder 06/25/23 Latia Guardado PA-C [facility] 04/26/24 documented as of this encounter
--- OUTSIDE RECORDS SUMMARY | 2024-07-26 15:16 | XMS_ITS | Encounter Summary ---
Author Organization [employer] Address [address] [facility] [address] [place] [address] Care Team Providers Care Felt Cementer Name Role Phone Nicky Thibodeaux MD Primary Care Provider [phone] Wu Manzo MD Unavailable Feroz Ascencio MD Unavailable [phone] Reason for Visit * Reason Onset Date Comments ER Follow-up 05/30/2024 Encounter Details Date Type Department Care Team (Late st Contact Info) Description 05/30/2024 Telephone [facility] [address] [place] [address] Nicky Thibodeaux MD [address] [place] [address] ER Follow-up Social History Tobacco Use Types [...] it, etc. Strongly advised to come to [facility], gave extended hours today, pt declined, stated she has to go to a store now and stated has no ride, senior copywriter offered pt Uber, pt again declined and [...] 05/30/2024 2:30 PM EST Pt went to [facility] on 05/27/24 for laceration to left [...] ED visit on : Date: 05/27/24 Hospital: [facility] Seen for: Injury on hand Pt [...] Info) Description 09/14/2024 11:30 AM EDT Telemedicine [facility] [address] [place] [address] Nicky Thibodeaux MD [address] [place] [address] documented as of this encounter Visit Diagnoses Not on filedocumented in this encounter Additional Health Concerns Assessment Noted Time PHQ-9 Depression Total Score: 14 03/14/2 024 10:51 AM EST documented as of this encounter Care Teams Felt Cementer Relationship Specialty Start Date End Date Nicky Thibodeaux MD [address] [place] [address] PCP - General Family Medicine 04/20/18 Wu Manzo MD [address] [place] [address] Pain Medicine 03/29/24 Feroz Ascencio MD [address] [place] [phone] Orthopaedic Surgery 06/15/24 Na Orozco Mis SpecialistRn Family 06/25/23 TREASURE [facility] 04/26/24 documented as of this encounter
== END 2024-07-26 14:03 | disposition home or self-care (01) ==
LOC: HO.PMCPRC 12:41
PROVIDERS: PCP Family Medicine; Visit Provider Anesthesiology
DX: M96.1 Postlaminectomy syndrome, not elsewhere classified (principal); M46.1 Sacroiliitis, not elsewhere classified; M53.3 Sacrococcygeal disorders, not elsewhere classified; G89.4 Chronic pain syndrome
CPT/HCPCS: 62323

== ENCOUNTER 2024-08-11 10:58 | Outpatient (AMB) | payer MEDICAID, SELFPAY ==
[2024-08-11 11:12] VITALS: BP 184/97; PULSE 92; O2SAT 98; BMI 30.3
--- NOTE | 2024-08-11 11:12 | MHC.OFFVIS ---
Vital Signs 08/11/24 11:12 Height 5 ft 6 in Weight 188 lb BMI 30.3 BP 184/97 H Blood Pressure Location Rt brachial Position Sitting Pulse 92 Pulse Source Pulse Oximeter Pulse Oximetry (%) 98 Oxygen Delivery Method Room Air Intake Visit Reasons: ITDD TRIAL WITH CLONIDINE Dairy Inspector Required: No Allergies aspirin [ASPIRIN] Allergy (Mild, Verified 08/11/24 11:13) GI UPSET ibuprofen [IBUPROFEN] Allergy (Mild, Verified 08/11/24 11:13) GI UPSET Medication List - Last Reconciled 08/11/24 by Zoila Schneider, WINDLACE MACHINE OPERATOR acetaminophen 650 mg (2 x 325 mg) PO Q6H PRN 30 days albuterol sulfate 90 mcg/actuation (ProAir HFA) 2 puffs inhalation Q6H PRN alprazolam (Xanax) 0.5 mg PO QID atorvastatin 40 mg PO BEDTIME baclofen 5 mg PO TID PRN cholecalciferol (vitamin D3) (Vitamin D3) 1 cap PO DAILY cyclobenzaprine 10 mg PO PRN diclofenac sodium 75 mg PO BID PRN docusate sodium 100 mg PO BID 30 days fluticasone propionate 220 mcg/actuation (Flovent HFA) 1 puff inhalation BID gabapentin 600 mg PO TID lamotrigine 200 mg PO BEDTIME lidocaine 5% 1 patch topical DAILY PRN lidocaine-prilocaine 2.5-2.5 % topical lisinopril 10 mg PO BEDTIME omeprazole 1 cap PO DAILY@0630 oxcarbazepine 600 mg PO BEDTIME quetiapine 50 mg PO BEDTIME semaglutide (weight loss) (Wegovy) 1.7 mg subcut QWEEK sumatriptan succinate 50 mg PO DAILY PRN tiotropium bromide (Spiriva with HandiHaler) 1 cap inhalation DAILY varenicline tartrate 1 mg PO BID zolpidem 1 tab PO BEDTIME HPI Comments Details: Loree is 59 years old female who presents in my office after 2nd trial of pain pump Intrathecal drug delivery system. This time we tried clonidine. She reported 25% pain improvement for the 1st couple of days after the trial. Unfortunately it is not enough for me to consider intrathecal pain pump for this patient's condition. Prior to that we tried bupivacaine which is not helping her pain. The patient is under contract with [facility] receiving opioid medications from them. Therefore we are trying non opioid medications for the patient. Patient adamantly refuses to stop her opioids. I sent her for the MRI of the lumbar spine and the MRI was performed at [facility] because patient is claustrophobic. The report of the MRI is dictated as below. There are some moderate spinal canal stenosis however unlikely it produces pain which patient describes. I personally examined the MRI images today and did not find any Modic type changes in the patient's back. Attention was attracted today on signs of sacroiliitis see physical exam below. I will schedule the patient for diagnostic bilateral sacroiliac joint injection. Prior: Darcy is back in my office after diagnostic bilateral sacroiliac joint injection. She reported only 1 hour of more or less pain relief postoperatively this is not significant pain relief to consider sacroiliac joint as a major pain generators. We discussed the possibility of evaluating this patient's pain further. She has a history of postlaminectomy syndrome. She has significant hardware at L5-S1 in the lumbar spine. Possibility exists to treat her condition with Nevro SCS versus intrathecal pain pump. However possibility exists that her pain is coming also from vertebra genic pain syndrome. Unfortunately the MRI report available to me does not comment on any Modic type changes in the lower lumbar vertebra. I requested the patient to obtain the MRI image on the disc from [facility] where she had MRI performed. I also requested her to read brochures about Nevro SCS and [employer]. Prior: multiple pain generators she reports consistent pain in bilateral shoulder posterior neck bilateral hips bilateral perm paramedian paraspinal areas pain in bilateral groins, pain with standing, pain with sitting down, she reports laying down her pain slightly better prolonged sitting and walking aggravate her pain. . She is walker for ambulation. She had a surgery surgery with Dr. Myrick to help her pain. In the past she had bilateral total hip replacement to help her pain in the hip however she admits that pain is as painful as it was before hip replacement. She had multiple images available including x-ray of the lumbar spine on which L5-S1 fusion is demonstrated without significant pathological changes and with proper hardware position. She also had x-ray of the pelvis which demonstrated appropriate image of the pelvis with bilateral total hip replaced. She had injections long time ago in [facility] as well as with [facility]. In fact she is scheduled for some sort of the injection with [facility] again. This injection will be addressing pain in her neck. The nature of the injection is unknown to me. She is being prescribed by [facility] hydrocodone/acetaminophen 5/325. She is also prescribed cyclobenzaprine to control her pain and help her to sleep at night, she tried NSAIDs with minimal effect including diclofenac sodium. Her primary care physician recommended her to come to this office with the request of spinal cord stimulation. Patient is very leery about spinal cord stimulator and yet she is willing to discuss it with me. Her past medical history significant for headaches mini stroke 4 year ago history of fatigue dizziness and fainting history of anxiety bipolar depression COPD shortness of breath and osteoarthritis. Her past surgical history is significant for to bilateral hip replacements, as well as transforaminal fusion by Dr. Prabhakar. She smokes cigarettes 1 pack per day for 14 years she denies drinking alcohol drinks coffee but not soda and she denies recreational drugs. [facility] Medical History Poor dentition Neck pain Low back pain Anxiety and depression History of panic attacks Chronic headaches Uses roller walker Nicotine dependence, cigarettes, uncomplicated (~1978) Hyperlipidemia History of TIA (transient ischemic attack) (~2019) Personal history of nicotine dependence (~1978) COPD (chronic obstructive pulmonary disease) Osteoarthritis of left hip Hypertension Surgical History History of appendectomy (~02/13/02) Status post total hip replacement, right (~04/26/13) Social History Household Members: None Housing: Apartment Are you a primary health care administrator to a significant other at home: No Do you presently have visiting nurse or other home services: No Comment: patient refused bed alarm Patient Tobacco Use Status: Current everyday Tobacco user Tobacco use type: Cigarette Cigarette Packs Per Day: 1 Cigarettes Per Day: 20.0 Years Smoked: 42 Second Hand Smoke Exposure: No Current occupational status: unemployed Current occupation: Right Handed Female Reproductive History Menstrual Age of Menarche: 13 Review of Systems Const All systems reviewed & are unremarkable except as noted in HPI and below ENT Reports Normal hearing present Neuro Reports Normal hearing present, Denies Abnormal speech present, Denies confusion and Denies Sensory deficit (Neuro) Psych Denies confusion Physical Exam Vital Signs: Last Vital Signs Pulse 92 08/11/24 11:12 BP 184/97 H 08/11/24 11:12 Pulse Ox 98 08/11/24 11:12 Oxygen Delivery Method Room Air 08/11/24 11:12 BMI result Body Mass Index 30.3 Const General: no acute distress; No confusion Nutritional Appearance: obese morbidly obese Orientation/consciousness: patient oriented x3 and No confusion Eyes General: appearance normal, both eyes and all related structures Pupils: Equal, round and reactive pupils present EOM: EOMs intact bilaterally Neck Neck: Yes full ROM Chest Chest palpation & inspection: normal inspection of the chest Resp Effort & Inspection: normal respiratory effort, able to speak in complete sentences, normal respiratory pattern, no audible wheezes and no cough Cardio Jugular venous distension: no JVD GI Inspection: Yes normal to inspection Back/Spine/Pelvis Other: Able to stand on bilateral tiptoes in bilateral heels without significant difficulty. Unable to flex herself forward or backwards because of severe pain. Attempt to perform Tiago test is demonstrating severe discomfort on lower back bilaterally. Pelvic distraction and pelvic compression tests causing mild discomfort in projection of the sacroiliac joints as well. Thigh thrust test and Stinchfield tests are also positive bilaterally. Valsalva maneuver is negative for pain increase. Fourteen finger test is positive bilaterally. Neuro General: patient oriented x3, gait normal and No confusion Cranial nerves: Yes CN's II-XII intact bilaterally, Yes Equal, round and reactive pupils present, Yes Normal hearing present and Yes Ability to bilaterally elevate shoulders present Speech: No Abnormal speech present Gait exam (Neuro): Normal gait present Motor exam (neuro): 5/5 motor strength present throughout Sensory Exam: No Sensory deficit (Neuro) Extrem General: No pedal edema Psych Speech and movement: Normal speech and movement present Affect: normal affect Attitude: cooperative Thought process: Normal thought process present Thought content: Normal thought content present Insight: Good insight present (Psych) Judgement: Good judgement present (Psych) Results Reviewed Results Reviewed: MR LUMBAR SPINE WITHOUT AND WITH CONTRAST INDICATION: Postlaminectomy syndrome, not elsewhere classified. Chronic pain syndrome TECHNIQUE: Multiplanar T1 and T2-weighted imaging of the lumbar spine before and after gadolinium administration. 20 mL of Dotarem was administered. COMPARISON: None. FINDINGS: Alignment and Curvature: Status post posterior instrumented fusion at L4-L5. Mild grade 1 retrolisthesis of T12 on L1, L1 on L2 and L2 on L3. Grade 1 anterolisthesis of L4 on L5. Conus and Cauda Equina: The conus terminates at the T12-L1 level and demonstrates no signal abnormality. Vertebral Body Heights: Mild chronic anterior wedging of T11 vertebral body. Marrow Signal: No significant abnormality. Discs: There are varying degrees of degenerative disc desiccation and height loss. Multilevel degenerative Schmorl's nodes without significant surrounding edema. T11-T12: Small central protrusion. No significant spinal canal or foraminal stenosis. T12-L1: Disc bulge with small right paracentral protrusion, mild facet arthropathy and ligamentum flavum thickening. No significant spinal or foraminal stenosis. L1-L2: Disc bulge, facet arthropathy and ligamentum flavum thickening with mild spinal canal and mild left foraminal stenosis. No significant right foraminal stenosis. L2-L3: Disc extrusion with mild inferior migration to the level of L3 pedicles, facet arthropathy and ligamentum flavum thickening with prominent posterior epidural fat. Moderate spinal canal and mild bilateral foraminal stenosis. Mild narrowing of bilateral subarticular zones. L3-L4: Left paracentral protrusion, facet arthropathy and ligamentum flavum thickening. Moderate spinal canal and mild bilateral foraminal stenosis. Narrowing of the left subarticular zone, encroaching the descending nerve roots. L4-L5: Disc uncovering and facet arthropathy. No significant spinal canal stenosis. Mild right foraminal stenosis. Mild to moderate left foraminal stenosis. L5-S1: There is no significant canal or foraminal stenosis. No abnormality is identified at the visualized portion of the sacrum. Following gadolinium administration there is no pathologic intrathecal enhancement. IMPRESSION: Status post posterior instrumented fusion at L4-L5. Multilevel degenerative changes of the lumbar spine as described. Findings are most pronounced at L2-L3 and L3-L4 with moderate spinal canal stenosis. Narrowing of the left subarticular zone at L3-L4 encroaching the descending nerve roots. Assessment & Plan Assessment & Plan (1) Sacroiliitis: Code(s): M46.1 - Sacroiliitis, not elsewhere classified Category: Medical (2) Sacroiliac joint dysfunction of both sides: Code(s): M53.3 - Sacrococcygeal disorders, not elsewhere classified Category: Medical (3) Postlaminectomy syndrome, lumbar: Code(s): M96.1 - Postlaminectomy syndrome, not elsewhere classified Category: Medical (4) Chronic pain syndrome: Code(s): G89.4 - Chronic pain syndrome Category: Medical Plan MRI is negative for Modic type changes. On physical exam attention was attracted to signs of sacroiliitis. I will schedule this patient for bilateral diagnostic sacroiliac joint injection. I will see this patient after the procedure in the office. Coding Level of Care Code Est Pt Level 3 (23139) Diagnoses Sacroiliitis M46.1 Sacroiliac joint dysfunction of both sides M53.3 Postlaminectomy syndrome, lumbar M96.1 Chronic pain syndrome G89.4
--- OUTSIDE RECORDS SUMMARY | 2024-08-11 12:54 | XMS_ITS | Encounter Summary ---
Author Organization [employer] Address 75 [facility] 7t [place] [address] Care Team Providers Care Soakers Supervisor Name Role Phone Nicky Thibodeaux MD Primary Care Provider [phone] Wu Manzo MD Unavailable Feroz Ascencio MD Unavailable [phone] Reason for Visit * Reason Comments Med Refill Encounter Details Date Type Department Care Team ([facility] st Contact Info) Description 04/29/2023 Refill [facility] [address] [place] [address] Chelsi Canseco ANP [address] [place], [place] [phone] Social History Tobacco Use Types Packs/Day Years [...] Info) Description 09/14/2024 11:30 AM EDT Telemedicine [facility] [address] [place] [address] Nicky Thibodeaux MD [address] [place] [address] documented as of this encounter Visit Diagnoses Not on filedocumented in this encounter Additional Health Concerns Assessment Noted Time PHQ-9 Depression Total Score: 22 023 2:09 PM EDT documented as of this encounter Care Teams Soakers Supervisor Relationship Specialty Start Date End Date Nicky Thibodeaux MD [address] [place] [address] PCP - General Family Medicine 04/20/18 Wu Manzo MD [address] [place] [address] Pain Medicine 03/29/24 Feroz Ascencio MD [address] [place] [phone] Orthopaedic Surgery 06/15/24 Na Orozco Tombstone Erector HelperBattery Hand 06/25/23 Latia Guardado PA-C [facility] 04/26/24 documented as of this encounter
--- OUTSIDE RECORDS SUMMARY | 2024-08-11 12:54 | XMS_ITS | Encounter Summary ---
Author Organization [employer] Address 75 [facility] 7t [place] [address] Care Team Providers Care Sharepoint Net Developer Name Role Phone Nicky Thibodeaux MD Primary Care Provider [phone] Wu Manzo MD Unavailable Feroz Ascencio MD Unavailable [phone] Reason for Visit * Reason Comments Med Refill Encounter Details Date Type Department Care Team (Late st Contact Info) Description 04/09/2023 Refill [facility] [address] [place] [address] Nicky Thibodeaux MD [address] [place] [address] Pain Social History Tobacco Use Types Packs/Day [...] 09/14/2024 11:30 AM EDT Telemedicine [facility] [address] [place] [address] Nicky Thibodeaux MD [address] [place] [address] documented as of this encounter Visit Diagnoses Diagnosis Pain Generalized pain documented in this encounter Additional Health Concerns Assessment Noted Time PHQ-9 Depression Total Score: 22 023 2:09 PM EDT documented as of this encounter Care Teams Sharepoint Net Developer Relationship Specialty Start Date End Date Nicky Thibodeaux MD [address] [place] [address] PCP - General Family Medicine 04/20/18 Wu Manzo MD [address] [place] [address] Pain Medicine 03/29/24 Feroz Ascencio MD [address] [place] [phone] Orthopaedic Surgery 06/15/24 Na Orozco Pure Pak Machine OperatorPulp Drier Firer 06/25/23 Latia Guardado PA-C [facility] 04/26/24 documented as of this encounter
--- OUTSIDE RECORDS SUMMARY | 2024-08-11 12:54 | XMS_ITS | Encounter Summary ---
Author Organization [employer] Address [address] [facility] [address] [place] [address] Care Team Providers Care Bag Bundler Name Role Phone Nicky Thibodeaux MD Primary Care Provider [phone] Wu Manzo MD Unavailable Feroz Ascencio MD Unavailable [phone] Reason for Visit * Reason Onset Date Comments Med Refill 04/29/2023 Encounter Details Date Type Department Care Team (Late st Contact Info) Description 04/29/2023 Telephone [facility] [address] [place], [place] [phone] Nicky Thibodeaux MD [address] [place], [place] [phone] Med Refill Social History Tobacco Use Types [...] 500 MG tablet To be sent to: [facility]/pharmacy #[id number] documented in this encounter Plan of Treatment Upcoming Encounters Date Type Department Care Team (Late st Contact Info) Description 09/14/2024 11:30 AM EDT Telemedicine [facility] [address] [place] [address] Nicky Thibodeaux MD [address] [place] [address] documented as of this encounter Visit Diagnoses Not on filedocumented in this encounter Additional Health Concerns Assessment Noted Time PHQ-9 Depression Total Score: 22 023 2:09 PM EDT documented as of this encounter Care Teams Bag Bundler Relationship Specialty Start Date End Date Nicky Thibodeaux MD [address] [place] [address] PCP - General Family Medicine 04/20/18 Wu Manzo MD [address] [place] [address] Drive [address] [place] [address] Pain Medicine 03/29/24 Feroz Ascencio MD [address] [place] [phone] Orthopaedic Surgery 06/15/24 Na Orozco Manager ExchangeRn Mds Coordinator 06/25/23 Latia Guardado PA-C [facility] 04/26/24 documented as of this encounter
--- OUTSIDE RECORDS SUMMARY | 2024-08-11 12:54 | XMS_ITS | Encounter Summary ---
Author Organization [employer] Address [address] [facility] [address] [place] [address] Care Team Providers Care Recruiting Associate Name Role Phone Nicky Thibodeaux MD Primary Care Provider [phone] Wu Manzo MD Unavailable Feroz Ascencio MD Unavailable [phone] Reason for Visit * Reason Comments Med Refill Encounter Details Date Type Department Care Team (Late st Contact Info) Description 05/19/2023 Refill [facility] [address] [place] [address] Nicky Thibodeaux MD [address] [place], [place] [phone] Asthma, unspecified asthma severity, unspecified whether complicated, [...] 09/14/2024 11:30 AM EDT Telemedicine [facility] [address] [place] [address] Nicky Thibodeaux MD [address] [place] [phone] documented as of this encounter Visit Diagnoses Diagnosis Asthma, unspecified asthma severity, unspecified whether complicated, unspecified whether persistent documented in this encounter Additional Health Concerns Assessment Noted Time PHQ-9 Depression Total Score: 22 023 2:09 PM EDT documented as of this encounter Care Teams Recruiting Associate Relationship Specialty Start Date End Date Nicky Thibodeaux MD [address] [place] [address] PCP - General Family Medicine 04/20/18 Wu Manzo MD [address] [place] [address] Pain Medicine 03/29/24 Feroz Ascencio MD [address] [place] [phone] Orthopaedic Surgery 06/15/24 Na Orozco Sales Planning AnalystDie Cast Operator 06/25/23 Latia Guardado PA-C [facility] 04/26/24 documented as of this encounter
--- OUTSIDE RECORDS SUMMARY | 2024-08-11 12:54 | XMS_ITS | Encounter Summary ---
Author Organization [employer] Address [address] [place] [address] 7t [place] [address] Care Team Providers Care Filter Press Tender Name Role Phone Nicky Thibodeaux MD Primary Care Provider [phone]- [phone] Wu Manzo MD Unavailable Feroz Ascencio MD Unavailable [phone] Encounter Details Date Type Department Care Team (Late Contact Info) Description 05/22/2022 Orders Only [facility] [address] [place] [address] [phone] Nereida Horner LPN Social History Tobacco Use [...] Info) Description 09/14/2024 11:30 AM EDT Telemedicine [facility] [address] [place] [address] [phone] Nicky Thibodeaux MD [address] [place], [place] [phone] documented as of this encounter Visit Diagnoses Not on filedocumented in this encounter Care Teams Filter Press Tender Relationship Specialty Start Date End Date Nicky Thibodeaux MD [address] [place] [phone] PCP - General Family Medicine 04/20/18 Wu Manzo MD [address] [place] [address] Pain Medicine 03/29/24 Feroz Ascencio MD [address] [place] [phone] Orthopaedic Surgery 06/15/24 Na Orozco Education Finance ProcessorPipe Line Repairer 06/25/23 TREASURE [facility] 04/26/24 documented as of this encounter
--- OUTSIDE RECORDS SUMMARY | 2024-08-11 12:54 | XMS_ITS | Encounter Summary ---
Author Organization [employer] Address [address] [facility] [address] 7t [place] [address] Care Team Providers Care Bus Cleaner Name Role Phone Nicky Thibodeaux MD Primary Care Provider +1- [phone] Wu Manzo MD Unavailable Feroz Ascencio MD Unavailable [phone] Encounter Details Date Type Department Care Team ([facility] st Contact Info) Description 03/11/2023 Abstract [facility] 230 [place], [place] [phone] Thuy Valenzuela Social History Tobacco Use Types [...] Info) Description 09/14/2024 11:30 AM EDT Telemedicine [facility] 230 [place] [address] Nicky Thibodeaux MD 230 [place] [address] documented as of this encounter Visit Diagnoses Not on filedocumented in this encounter Additional Health Concerns Assessment Noted Time PHQ-9 Depression Total Score: 22 023 2:09 PM EDT documented as of this encounter Care Teams Bus Cleaner Relationship Specialty Start Date End Date Nicky Thibodeaux MD [address] [place] [address] PCP - General Family Medicine 04/20/18 Wu Manzo MD [address] [place] [address] Drive [address] [place] [address] Pain Medicine 03/29/24 Feroz Ascencio MD [address] [place] [phone] Orthopaedic Surgery 06/15/24 Na Orozco Skein Winding OperatorGi Tech 06/25/23 Latia Guardado PA-C [facility] 04/26/24 documented as of this encounter
--- OUTSIDE RECORDS SUMMARY | 2024-08-11 12:54 | XMS_ITS | Encounter Summary ---
Author Organization [employer] Address [address] [place] [address] 7t [place] [address] Care Team Providers Care Hospital Chief Financial Officer Name Role Phone Nicky Thibodeaux MD Primary Care Provider [phone]- [phone] Wu Manzo MD Unavailable Feroz Ascencio MD Unavailable [phone] Reason for Visit * Reason Comments Med Refill Encounter Details Date Type Department Care Team (Late st Contact Info) Description 2022 Refill [facility] [address] [place] [address] [phone] Krystin Frederick, GRACIELA [address] [place] [address] [place] [address] Chronic migraine without aura without status migrainosus, [...] Info) Description 09/14/2024 11:30 AM EDT Telemedicine [facility] 230 [place], [place] [phone] Nicky Thibodeaux MD 230 [place], [place] [phone] documented as of this encounter Visit Diagnoses Diagnosis Chronic migraine without aura without status migrainosus, not intractable documented in this encounter Care Teams Hospital Chief Financial Officer Relationship Specialty Start Date End Date Chugach, MD Nicky 230 [place] [address] PCP - General Family Medicine 04/20/18 Wu Manzo MD [address] [place] [address] Pain Medicine 03/29/24 Feroz Ascencio MD [address] [place] [phone] Orthopaedic Surgery 06/15/24 Na Orozco River Transportation WorkerBowling Ball Grader 06/25/23 TREASURE [facility] 04/26/24 documented as of this encounter
--- OUTSIDE RECORDS SUMMARY | 2024-08-11 12:54 | XMS_ITS | Encounter Summary ---
Author Organization [employer] Address [address] [facility] [address] 7t [place] [address] Care Team Providers Care Tie Up Worker Name Role Phone Nicky Thibodeaux MD Primary Care Provider +1- [phone] Wu Manzo MD Unavailable Feroz Ascencio MD Unavailable [phone] Reason for Visit * Reason Comments Med Refill Encounter Details Date Type Department Care Team (Late st Contact Info) Description 08/09/2024 Refill [facility] 230 [place] [address] Nicky Thibodeaux MD 230 [place] [address] Pain Social History Tobacco Use Types Packs/Day [...] Info) Description 09/14/2024 11:30 AM EDT Telemedicine [facility] 230 [place] [address] Nicky Thibodeaux MD 230 [place] [address] documented as of this encounter Visit Diagnoses Diagnosis Pain Generalized pain documented in this encounter Additional Health Concerns Assessment Noted Time PHQ-9 Depression Total Score: 14 024 10:51 AM EST documented as of this encounter Care Teams Tie Up Worker Relationship Specialty Start Date End Date Nicky Thibodeaux MD 230 [place] [address] PCP - General Family Medicine 04/20/18 Wu Manzo MD [address] [facility] [address] [place] [address] Pain Medicine 03/29/24 Feroz Ascencio MD [address] [place] [phone] Orthopaedic Surgery 06/15/24 Na Orozco Beveling And Edging Machine OperatorDispatcher Radioactive Waste Disposal 06/25/23 TREASURE [facility] 04/26/24 documented as of this encounter
--- OUTSIDE RECORDS SUMMARY | 2024-08-11 12:54 | XMS_ITS | Encounter Summary ---
Author Organization [employer] Address [address] [place] [address] 7t [place] [address] Care Team Providers Care Special Equipment Technician Name Role Phone Nicky Thibodeaux MD Primary Care Provider [phone]- [phone] Wu Manzo MD Unavailable Feroz Ascencio MD Unavailable [phone] Encounter Details Date Type Department Care Team (Late st Contact Info) Description 05/05/[address] [facility] [address] [place] [address] [phone] Nicky Thibodeaux MD [address] [place] [address] [phone] Social History Tobacco Use Types Packs/Day Years [...] Info) Description 09/14/2024 11:[address] [facility] [address] [place] [address] [phone] Nicky Thibodeaux MD [address] [place] [address] [phone] documented as of this encounter Procedures Procedure Name Priority Date/Time Associated Diagnosis Comments COLPOSCOPY Routine 09/11/2021 12:00 AM EDT PAP SMEAR Routine 08/02/2021 12:00 AM EDT MAMMOGRAPHY Routine 10/29/2020 COLONOSCOPY Routine 12/11/2015 documented in this encounter Results * Colposcopy (09/11/2021 12:00 AM EDT) Historical Provider IN CLINIC/BEDSIDE ORDERAB LES Final Result Performing Organization Address [facility]/ZIP Co de Phone Number [facility] [address] [place] [address] [phone] * Pap Smear (08/02/2021 12:00 AM EDT) Swab Nicky Thibodeaux MD LAB CYTOLOGY ORDERABLES Fi nal Result Performing Organization Address [facility]/ZIP Co de Phone Number [facility] [address] [place] [address] [phone] * Mammography (10/29/2020) Mammogram BIRADS 2 Anatomical Region Laterality Modality Other Historical Provider HEALTH MAINTENANCE Final Result * Colonoscopy (12/11/2015) Colonoscopy normal with Dr. Delgado Historical Provider HEALTH MAINTENANCE Final Result documented in this encounter Visit Diagnoses Not on filedocumented in this encounter Care Teams Special Equipment Technician Relationship Specialty Start Date End Date Nicky Thibodeaux MD [address] [place] [address] PCP - General Family Medicine 04/20/18 Wu Manzo MD [address] [place] [address] Pain Medicine 03/29/24 Feroz Ascencio MD [address] [place] [phone] Orthopaedic Surgery 06/15/24 Na Sherried Survival SpecialistScarrer 06/25/23 TREASURE [facility] 04/26/24 documented as of this encounter
--- OUTSIDE RECORDS SUMMARY | 2024-08-11 12:55 | XMS_ITS | Encounter Summary ---
Author Organization [employer] Address [address] [facility] [address] 7t [place] [address] Care Team Providers Care Smelter Liner Name Role Phone Nicky Thibodeaux MD Primary Care Provider [phone]- [phone] Wu Manzo MD Unavailable Feroz Ascencio MD Unavailable [phone] Reason for Visit * Reason Onset Date Comments [place] 10/12/2023 Encounter Details Date Type Department Care Team ([facility] st Contact Info) Description 10/12/2023 Telephone [facility] 230 [place], [place] [phone] Nicky Thibodeaux MD 230 [place], [place] [phone] [place] Social History Tobacco Use Types Packs/Day [...] Info) Description 09/14/2024 11:30 AM EDT Telemedicine [facility] [address] [place] [address] Nicky Thibodeaux MD [address] [place] [address] documented as of this encounter Visit Diagnoses Not on filedocumented in this encounter Additional Health Concerns Assessment Noted Time PHQ-9 Depression Total Score: 22 023 2:09 PM EDT documented as of this encounter Care Teams Smelter Liner Relationship Specialty Start Date End Date Nicky Thibodeaux MD 230 [place] [address] PCP - General Family Medicine 04/20/18 Wu Manzo MD [address] [facility] [address] [place] [address] Pain Medicine 03/29/24 Feroz Ascencio MD [address] [place] [phone] Orthopaedic Surgery 06/15/24 Na Orozco Binder Folder OperatorFrench Instructor 06/25/23 TREASURE [facility] 04/26/24 documented as of this encounter
--- OUTSIDE RECORDS SUMMARY | 2024-08-11 12:55 | XMS_ITS | Encounter Summary ---
Author Organization [employer] Address [address] [place] [address] 7t [place] [address] Care Team Providers Care Avionics Supervisor Name Role Phone Nicky Thibodeaux MD Primary Care Provider [phone]- [phone] Wu Manzo MD Unavailable Feroz Ascencio MD Unavailable Reason for Visit * Reason Comments Med Refill Encounter Details Date Type Department Care Team (Late Contact Info) Description 12/11/2022 Refill [facility] [address] [place] [address] [phone] Nicky Thibodeaux MD [address] [place] [address] [phone] Social History Tobacco Use Types Packs/Day Years [...] Info) Description 09/14/2024 11:30 AM EDT Telemedicine [facility] [address] [place] [address] [phone] Nicky Thibodeaux MD 230 [place], [place] [phone] documented as of this encounter Visit Diagnoses Not on filedocumented in this encounter Additional Health Concerns Assessment Noted Time PHQ-9 Depression Total Score: 22 023 2:09 PM EDT documented as of this encounter Care Teams Avionics Supervisor Relationship Specialty Start Date End Date Nicky Thibodeaux MD [address] [place] [address] PCP - General Family Medicine 04/20/18 Wu Manzo MD [address] [place] [address] Drive [address] [place] [address] Pain Medicine 03/29/24 Feroz Ascencio MD [address] [place] [phone] Orthopaedic Surgery 06/15/24 Na Orozco Physical Optics TeacherNegative Restorer 06/25/23 TREASURE [facility] 04/26/24 documented as of this encounter
--- OUTSIDE RECORDS SUMMARY | 2024-08-11 12:55 | XMS_ITS | Encounter Summary ---
Author Organization [employer] Address 75 [facility] 7t [place] [address] Care Team Providers Care Wood Lather Name Role Phone Nicky Thibodeaux MD Primary Care Provider [phone]- [phone] Wu Manzo MD Unavailable Feroz Ascencio MD Unavailable [phone] Reason for Visit * Reason Comments Med Refill Encounter Details Date Type Department Care Team ([facility] Contact Info) Description 08/26/2022 Refill [facility] [address] [place] [address] Nicky Thibodeaux MD 230 [place] [address] Pain Social History Tobacco Use Types Packs/Day [...] Upcoming Encounters Date Type Department Care Team ([facility] Contact Info) Description 09/14/2024 11:30 AM EDT Telemedicine [facility] 230 [place] [address] Nicky Thibodeaux MD 230 [place] [address] documented as of this encounter Visit Diagnoses Diagnosis Pain Generalized pain documented in this encounter Additional Health Concerns Assessment Noted Time PHQ-9 Depression Total Score: 22 023 2:09 PM EDT documented as of this encounter Care Teams Wood Lather Relationship Specialty Start Date End Date Nicky Thibodeaux MD 230 [place] [address] PCP - General Family Medicine 04/20/18 Wu Manzo MD [address] [place] [address] Drive [address] [place] [address] Pain Medicine 03/29/24 Feroz Ascencio MD [address] [place] [phone] Orthopaedic Surgery 06/15/24 Na Orozco Fish Stringer AssemblerEnvironmental Scientist 06/25/23 TREASURE [facility] 04/26/24 documented as of this encounter
--- OUTSIDE RECORDS SUMMARY | 2024-08-11 12:55 | XMS_ITS | Encounter Summary ---
Author Organization [employer] Address 75 [facility] 7t [place] [address] Care Team Providers Care Occupational Therapy Technician Name Role Phone Nicky Thibodeaux MD Primary Care Provider [phone]- [phone] Wu Manzo MD Unavailable Feroz Ascencio MD Unavailable [phone] Reason for Visit * Reason Comments Med Refill Encounter Details Date Type Department Care Team (Late st Contact Info) Description 09/30/2022 Refill [facility] 230 [place] [address] Deborah Stratton MD 230 [place] [address] Chronic migraine without aura without status migrainosus, [...] [facility] 230 [place] [address] Nicky Thibodeaux MD 230 [place] [address] documented as of this encounter Visit Diagnoses Diagnosis Chronic migraine without aura without status migrainosus, not intractable documented in this encounter Additional Health Concerns Assessment Noted Time PHQ-9 Depression Total Score: 22 023 2:09 PM EDT documented as of this encounter Care Teams Occupational Therapy Technician Relationship Specialty Start Date End Date Nicky Thibodeaux MD 230 [place] [address] PCP - General Family Medicine 04/20/18 Wu Manzo MD [address] [place] [address] Drive [address] [place] [address] Pain Medicine 03/29/24 Feroz Ascencio MD [address] [place] [phone] Orthopaedic Surgery 06/15/24 Na Orozco Pr InternSatellite Dish Installer 06/25/23 TREASURE [facility] 04/26/24 documented as of this encounter
--- OUTSIDE RECORDS SUMMARY | 2024-08-11 12:55 | XMS_ITS | Encounter Summary ---
Author Organization [email or web address] Address [address] [facility] [address] 7t [place] [address] Care Team Providers Care Flat Grinder Operator Name Role Phone Nicky Thibodeaux MD Primary Care Provider +1- [phone] Wu Manzo MD Unavailable Feroz Ascencio MD Unavailable [phone] Reason for Visit * Reason Onset Date Comments Pre-visit Planning 11/09/2023 Encounter Details Date Type Department Care Team (Late st Contact Info) Description 11/09/2023 Telephone [facility] 230 [place] [address] Nicky Thibodeaux MD 230 [place], [place] [phone] Pre-visit Planning Social History Tobacco Use Types [...] Description 09/14/2024 11:30 AM EDT Telemedicine [facility] 230 [place] [address] Nicky Thibodeaux MD 230 [place] [address] documented as of this encounter Visit Diagnoses Not on filedocumented in this encounter Additional Health Concerns Assessment Noted Time PHQ-9 Depression Total Score: 22 023 2:09 PM EDT documented as of this encounter Care Teams Flat Grinder Operator Relationship Specialty Start Date End Date Nicky Thibodeaux MD 230 [place] [address] PCP - General Family Medicine 04/20/18 Wu Manzo MD [address] [facility] [address] [place] [address] Pain Medicine 03/29/24 Feroz Ascencio MD [address] [place] [phone] Orthopaedic Surgery 06/15/24 Na Orozco Horse BuyerAdministration Specialist 06/25/23 TREASURE [facility] 04/26/24 documented as of this encounter
--- OUTSIDE RECORDS SUMMARY | 2024-08-11 12:55 | XMS_ITS | Encounter Summary ---
Author Organization [employer] Address [address] [facility] [address] 7t [place] [address] Care Team Providers Care Furniture Salesperson Name Role Phone Nicky Thibodeaux MD Primary Care Provider [phone]- [phone] Wu Manzo MD Unavailable Feroz Ascencio MD Unavailable [phone] Reason for Visit * Reason Onset Date Comments Nurse Triage 05/11/2024 Encounter Details Date Type Department Care Team (Late st Contact Info) Description 05/11/2024 Telephone [facility] 230 [place], [place] [phone] Nicky Thibodeaux MD 230 [place], [place] [phone] Nurse Triage Social History Tobacco Use Types [...] or Thursday.Pt wants appt on Thursday when TABLE WORKER PACKAGER is available to bring pt. Reviewed [facility] operating hours and that wait times vary. Unable to book sick on site > 48 hours. Pt advised can call back on Thursday for Thursday scheduled. Reviewed home care advise, ER precautions and reasons to call back. Protocol Used: Dizziness (Adult) Protocol-Based Disposition: Discuss with PCP and Callback by Nurse Today Sent to PCP and [place] team Primary care nurses for follow up [...] Info) Description 09/14/2024 11:30 AM EDT Telemedicine [facility] 230 [place] [address] Nicky Thibodeaux MD 230 [place] [address] documented as of this encounter Visit Diagnoses Not on filedocumented in this encounter Additional Health Concerns Assessment Noted Time PHQ-9 Depression Total Score: 14 024 10:51 AM EST documented as of this encounter Care Teams Furniture Salesperson Relationship Specialty Start Date End Date Nicky Thibodeaux MD 230 [place] [address] PCP - General Family Medicine 04/20/18 Wu Manzo MD [address] [place] [address] Pain Medicine 03/29/24 Feroz Ascencio MD [address] [place] [phone] Orthopaedic Surgery 06/15/24 Na Orozco Corporate Licensed BrokerBonderizer 06/25/23 Latia Guardado PA-C [facility] 04/26/24 documented as of this encounter
--- OUTSIDE RECORDS SUMMARY | 2024-08-11 12:55 | XMS_ITS | Encounter Summary ---
Author Organization [employer] Address [address] [facility] [address] 7t [place] [address] Care Team Providers Care Lead Care Manager Name Role Phone Nicky Thibodeaux MD Primary Care Provider [phone]- [phone] Wu Manzo MD Unavailable Feroz Ascencio MD Unavailable [phone] Reason for Visit * Reason Comments Med Refill Encounter Details Date Type Department Care Team (Late st Contact Info) Description 05/26/2024 Refill [facility] 230 [place] [address] Nicky Thibodeaux MD 230 [place] [address] Pain Social History Tobacco Use Types Packs/Day [...] 09/14/2024 11:30 AM EDT Telemedicine [facility] 230 [place] [address] Nicky Thibodeaux MD 230 [place] [address] documented as of this encounter Visit Diagnoses Diagnosis Pain Generalized pain documented in this encounter Additional Health Concerns Assessment Noted Time PHQ-9 Depression Total Score: 14 024 10:51 AM EST documented as of this encounter Care Teams Lead Care Manager Relationship Specialty Start Date End Date Nicky Thibodeaux MD 230 [place] [address] PCP - General Family Medicine 04/20/18 Wu Manzo MD [address] [facility] [address] [place] [address] Pain Medicine 03/29/24 Feroz Ascencio MD [address] [place] [phone] Orthopaedic Surgery 06/15/24 Na Orozco Athletic Shoe DesignerGut Puller 06/25/23 TREASURE [facility] 04/26/24 documented as of this encounter
--- OUTSIDE RECORDS SUMMARY | 2024-08-11 12:55 | XMS_ITS | Encounter Summary ---
Author Organization [employer] Address [address] [facility] [address] 7t [place] [address] Care Team Providers Care Scale Clerk Name Role Phone Nicky Thibodeaux MD Primary Care Provider [phone]- [phone] Wu Manzo MD Unavailable Feroz Ascencio MD Unavailable [phone] Reason for Visit * Reason Onset Date Comments ER Follow-up 05/30/2024 Encounter Details Date Type Department Care Team (Late st Contact Info) Description 05/30/2024 Telephone [facility] 230 [place] [address] Nicky Thibodeaux MD 230 [place] [address] ER Follow-up Social History Tobacco Use Types [...] it, etc. Strongly advised to come to [facility], gave extended hours today, pt declined, stated she has to go to a store now and stated has no ride, insurance writer offered pt Uber, pt again declined [...] 05/30/2024 2:30 PM EST Pt went to [facility] on 05/27/24 for laceration to left [...] ED visit on : Date: 05/27/24 Hospital: [facility] Seen for: Injury on hand Pt [...] Info) Description 09/14/2024 11:30 AM EDT Telemedicine [facility] 230 [place] [address] Nicky Thibodeaux MD 230 [place] [address] documented as of this encounter Visit Diagnoses Not on filedocumented in this encounter Additional Health Concerns Assessment Noted Time PHQ-9 Depression Total Score: 14 03/14/2 024 10:51 AM EST documented as of this encounter Care Teams Scale Clerk Relationship Specialty Start Date End Date Nicky Thibodeaux MD 230 [place] [address] PCP - General Family Medicine 04/20/18 Wu Manzo MD [address] [facility] [address] [place] [address] Pain Medicine 03/29/24 Feroz Ascencio MD [address] [place] [phone] Orthopaedic Surgery 06/15/24 Na Orozco CulturistExtruder Operator Horizontal 06/25/23 TREASURE [facility] 04/26/24 documented as of this encounter
--- OUTSIDE RECORDS SUMMARY | 2024-08-11 12:55 | XMS_ITS | Encounter Summary ---
Author Organization [employer] Address [address] [place] [address] 7t [place] [address] Care Team Providers Care Cash Application Representative Name Role Phone Nicky Thibodeaux MD Primary Care Provider [phone]- [phone] Wu Manzo MD Unavailable Feroz Ascencio MD Unavailable [phone] Encounter Details Date Type Department Care Team (Latest Contact Info) Description 04/05/2021 Abstract [facility] CONVERSIONS Dental, Provider, DDS Social History Tobacco [...] EDT Telemedicine [facility] MEDICINE 230 [place] [address] Nicky Thibodeaux MD 230 [place] [address] documented as of this encounter Visit Diagnoses Not on filedocumented in this encounter Care Teams Cash Application Representative Relationship Specialty Start Date End Date Nicky Thibodeaux MD 230 [place], [place] [phone] PCP - General Family Medicine 04/20/18 Wu Manzo MD [address] [facility] [address] [place] [address] Pain Medicine 03/29/24 Feroz Ascencio MD [address] [place] [phone] Orthopaedic Surgery 06/15/24 Na Orozco Utility PersonAudiology Doctor 06/25/23 TREASURE [facility] 04/26/24 documented as of this encounter
--- OUTSIDE RECORDS SUMMARY | 2024-08-11 12:55 | XMS_ITS | Clinical Summary ---
Author Organization [employer] Address [address] [place] [address] 7t [place] [address] Care Team Providers Care Hot Wire Glass Tube Cutter Name Role Phone Nicky Thibodeaux MD Primary Care Provider [phone] Wu Manzo MD Unavailable Feroz Ascencio MD Unavailable [phone] Allergies Active Allergy Reactions Criticality Noted [...] A MEAL 90 capsule 1 024 Active diclofenac (Voltaren) 75 MG [...] hr tabletIndications :Depression with anxiety 200 mg. Active QUEtiapine (SEROquel) 50 MG tabletIndications :Depression with anxiety 50 mg. Active HYDROcodone-aceta minophen ([place]) 5-325 MG tabletIndications :Chronic low back pain, unspecified back pain laterality, unspecified whether sciatica present 1 tablet. Active OXcarbazepine (Trileptal) 600 MG tabletIndications :Depression [...] (BMI) of 35.0 to 35.9 in adult ([facility]) Inject 0.5 mL (5 mg) under the [...] FOR MUSCLE PAIN 90 tablet 025 Active lidocaine-priloca ine (Emla) 2.5-2.5 % creamIndications: Pain APPLY TOPICALLY 1 (ONE) TIME FOR 1 DOSE. APPLY TWICE A DAY NEEDED FOR PAIN 30 g 1 025 Active cyclobenzaprine (Flexeril) 10 MG tabletIndications :Pain TAKE 1 TABLET BY MOUTH UP TO 3 TIMES DAILY NEEDED FOR MUSCLE PAIN 60 tablet 11 024 2024 Discontinued lidocaine-priloca ine (Emla) 2.5-2.5 % creamIndications: Pain APPLY TOPICALLY 1 (ONE) TIME FOR 1 DOSE. APPLY TWICE A DAY NEEDED FOR PAIN 30 g 1 024 2024 Discontinued Active Problems Problem Noted Date [...] due after 03/14/25 -eye care facilitated by [facility] -dental home is [facility] care proxy paperwork completed by to the patient 07/17/23 Assessment & Plan (03/14/2024 11:23 AM EST): -next physical exam due after 03/14/25 -eye care facilitated by [facility] -dental home is [facility] [place] care proxy paperwork completed by to the patient 07/17/23 Assessment & Plan (11/19/2023 11:08 AM EDT): -next physical exam due after 12/11/23 -eye care facilitated by [facility] -dental home is [facility] proxy paperwork completed by to the patient 07/17/23 Assessment & Plan (07/17/2023 10:10 AM EDT): -next physical exam due after 12/11/23 -eye care facilitated by [facility] -dental home is [facility] proxy paperwork completed by the patient 07/17/23 [...] the MRI image on the disc from [facility] where she had MRI performed. I also requested her to read brochures about [employer] and I [employer]. Assessment & Plan (07/17/2023 10:03 AM EDT): Her pain is not controlled. Dillon asked her to reach out to her original prescriber for Vicodin at [facility]. She is 7 weeks post-op sugery and is weaning her percocet's. Dillon explained since she is on Ambien, gabapentin, and benzodiazapine I would not be able to safely prescribe the medications through our program. Assessment & Plan (12/15/2022 9:38 AM EDT): Her pain is not controlled. Dillon asked her to reach out to her original prescriber for Vicodin at [facility]. She is 7 weeks post-op sugery and is weaning her percocet's. Dillon explained since she is on Ambien, gabapentin, and benzodiazapine I would not be able to safely prescribe the medications through our program. Assessment & Plan (09/03/2022 12:12 PM EDT): Her pain is not controlled. Dillon asked her to reach out to her original prescriber for Vicodin at [facility]. She is 7 weeks post-op sugery [...] or 2.4 mg mcc. -PA resubmitted 11/19/23 - Advised to Switch [...] or 2.4 mg mcc. -PA resubmitted 11/19/23 - Advised to Switch [...] severe pain. She is getting Vicodin from [facility]. She requests opiate medications from [facility]. We have reviewed her sedating medications together [...] pain. She sees a therapist and psychiatrist. -[facility] prescribing hydrocodone/APA to support instrumented activities of [...] severe pain. She is getting Vicodin from [facility]. She requests opiate medications from [...] pain. She sees a therapist and psychiatrist. -[facility] prescribing hydrocodone/APA to support instrumented activities of daily living. Note from 11/26/23 reviewed. -I will discuss with our pain management providers for any recommendations - Referred to follow up with Pain management. Pain pump is being advised 03/14/24 Assessment & Plan (11/19/2023 11:10 AM EDT): -s/p surgery with Dr. Tania Escamilla 06/2022 -Pt continues to report severe pain. She is getting Vicodin from [facility]. She requests opiate medications from [...] -Referral placed to Gynecology, Dr. Aaron 07/17/23 -[facility] [place] [facility] called 09/23/23 stating pt declined appt [...] -Referral placed to Gynecology, Dr. Aaron 07/17/23 -[facility] [place] [facility] called 09/23/23 stating pt declined appt [...] -Referral placed to Gynecology, Dr. Aaron 07/17/23 -[facility] [place] [facility] called 09/23/23 stating pt declined appt [...] left MARISELA 01/29/[address] Neal in [place] -s/p bilateral GT bursa injection under fluoroscopic guidance 06/13/24 with moderate reduction of pain in bilateral lateral hips -seen by ortho at [facility] 07/21/24 Hip pain [...] Encounters Date Type Department Care Team Description 08/09/2024 Refill [facility] MEDICINE [address] [place] [address] Nicky Thibodeaux MD Pain 07/17/2024 Refill [facility] MEDICINE [address] [place] [address] Nicky Thibodeaux MD Pain 07/01/2024 Population Health Risk Score [facility] (C3) Department [address] [place] [phone] Provider, Population Health Generic 06/30/2024 Refill HH MEDICINE [address] [place] [address] Nicky Thibodeaux MD Vitamin D deficiency; Chronic migraine without aura without status migrainosus, not intractable 06/27/2024 Refill [facility] [place] [address] Nicky Thibodeaux MD Pain 06/22/2024 [place] [address] Nicky Thibodeaux MD 06/15/2024 Refill [facility] [place] [address] Nicky Thibodeaux MD Asthma, unspecified asthma severity, unspecified whether complicated, unspecified whether persistent 06/09/2024 Telephone [facility] [place] [address] Nicky Thibodeaux MD Medication Question 06/07/2024 2:30 PM EST Clinical Support [facility] [place] [address] America Robertson, RN Visit for wound care 06/07/2024 Travel 05/30/2024 Telephone [facility] [place] [address] Nicky Thibodeaux MD PT1 05/30/2024 Telephone [facility] [place] [address] Nicky Thibodeaux MD ER Follow-up 05/27/2024 Orders Only [facility] [place] [address] Nicky Thibodeaux MD Primary insomnia (Primary Dx); Chronic low back pain, unspecified back pain laterality, unspecified whether sciatica present; Anxiety; Dyslipidemia; Depression with anxiety; Constipation, unspecified constipation type; Primary hypertension; Gastroesophageal reflux disease, unspecified whether esophagitis present; Class 2 severe obesity due to excess calories with serious comorbidity and body mass index (BMI) of 35.0 to 35.9 in adult ([facility]) 05/26/2024 Refill [facility] MEDICINE [address] [place] [address] Nicky Thibodeaux MD Pain 05/23/2024 Telephone [facility] MEDICINE [address] [place], [place] [phone] Nicky Thibodeaux MD Medication Question 05/16/2024 Refill [facility] MEDICINE [address] [place], [place] [phone] Nicky Thibodeaux MD Osteoarthritis of hip, unspecified laterality, unspecified osteoarthritis type from Last 3 Months Immunizations Name Administration [...] [facility] MEDICINE [address] [place] [address] Nicky Thibodeaux MD [address] [place] [address] Health Maintenance Due Date Last Done Comments [...] Influenza Vaccine (#1) 2023 4, 12/29/2012, 01/19/2012 SDOH Screening 11/08/2024 11/09/2023 Alcohol/Substance Use Screening [...] EST Narrative 05/28/2024 1:13 AM EST ? [facility] [facility] ?[address] ?[place] [address] ?XRay Report ? Signed ? Patient: Couture,Darcy F ?MR#: [id number] ?? [id number] ? : 1965 ?Acct:[id number] ? Age/Sex: 58 / F ?ADM Date: 05/28/24 ? Loc: HO.ED ? Attending Dr: ? Ordering Physician: Parish Zuñiga ?? Date of Service: 05/28/24 ?? Procedure(s): XR wrist LT min 3V ?? Accession Number(s): [id number] ? cc: Nicky Thibodeaux MD; Parish Zuñiga [...] in OV> ? 05/28/24 0112 ? DD/ 0111 ? TD/TT: 05/28/24 0111 ? Dermatology Procedural Physician: ? Procedure Note Jeff, Image - 05/28/2024 [place] [address] XRay Report Signed Patient: Darcy Medina FMR#: [id number] : 1965Acct:[id number] Age/Sex: 58 / FADM Date: 05/28/24 Loc: HO.ED Attending Dr: Ordering Physician: Parish Zuñiga Date of Service: 05/28/24 Procedure(s): XR wrist LT min 3V Accession Number(s): [id number] cc: Nicky Thibodeaux MD; Parish Zuñiga CLINICAL [...] signed by Cory Tapia MD in OV> 05/28/24111 DD/ 0 TD/TT: 05/28/24110 Dermatology Procedural Physician: [facility] External Provider IMG XR PROCEDURES Edited Result - Final * BI Mammogram Screening Tomosynthesis Bilateral (08/11/2023 1:05 PM EDT) Anatomical Region Laterality Modality Breast Bilateral Mammography 08/11/2023 1:05 PM EDT Narrative 08/22/2023 7:23 AM EDT ? [facility] [place] ? [address] ?[place] [address] ? Mammography Report ? Signed ? Patient: Darcy Medina ?MR#: [id number] ?? [id number] ? : 1965 ?Acct:[id number] ? Age/Sex: 58 / F ?ADM Date: 08/11/23 ? Loc: HO.MAMMO ? Attending Dr: Nicky Thibodeaux MD ? Ordering Physician: Nicky Thibodeaux MD ?Results: 2B ?? enign Findings ? Date of Service: 08/11/23 ?Follow Up: 1 Year From Orig ?? inal Mammogram ? Procedure(s): MM tomosynthesis screening BI ?? Accession Number(s): [id number] ? cc: Nicky Thibodeaux MD ? EXAMINATION: ?? MM SCREENING DIGITAL BREAST TOMOSYNTHESIS, BILATERAL ? CLINICAL INFORMATION: ? Screening. Asymptomatic. ? COMPARISON: ?? Mammography: This study is compared with prior exams dating back to ?? 2019. ? TECHNIQUE: ?? Digital breast tomosynthesis is [...] Maria Elena Guillen MD in OV> ? 08/22/23 07 ? DD/ 1305 ? TD/TT: ? Dermatology Procedural Physician: ? Procedure Note Jeff, Image - 08/22/2023 [facility] [address] [place] [address] Dr. Gallardo, MICHAEL [address] Mammography Report Signed Patient: Darcy Medina FMR#: [id number] : 1965Acct:[id number] Age/Sex: 58 / FADM Date: 08/11/23 Loc: HO.MAMMO Attending Dr: Nicky Thibodeaux MD Ordering Physician: Nicky Thibodeaux MDResults: 2B enign Findings Date of Service: 08/11/23Follow Up: 1 Year From Orig ina Mammogram Procedure(s): MM tomosynthesis screening BI Accession Number(s): [id number] cc: Nicky Thibodeaux MD EXAMINATION: MM SCREENING [...] in OV> 08/22/23 0719 DD/ 1305 TD/TT: Dermatology Procedural Physician: Nicky Thibodeaux MD IM BI PROCEDURES Edited R esult - Final * (ABNORMAL) Lipid Panel, Standard (07/17/2023 10:24 AM EDT) Triglycerides 168(H) <150 mg/dL [facility] Comment:Desirable Triglyceri de: less than 150 mg/dLBorderline High Triglyceride 150-199 mg/dLHigh Triglyceride: 200-499 mg/dLVery High Triglyceride: greater than or equal to 5OO mg/dL Cholesterol 219(H) <200 mg/dL [facility] Comment:Desirable Cholestero l: less than 200 mg/dLBorderline High Cholesterol: 200-239 mg/dLHigh Cholesterol: greater than 239 mg/dL LDL Cholesterol Calculated 137(H) <100 mg/dL [facility] Comment:Desirable LDL: less than 100 mg/dLNear Optimal/Above Optimal LDL: 110- 129 mg/dLBorderline High LDL: 130-159 mg/dLHigh LDL: 160-189 mg/dLVery High LDL: greater than or equal to 190 mg/dL HDL Cholesterol 49 >40 mg/dL [facility] Comment:Desirable HDL: great er than 40 mg/dL Note: This HDL assay may give artificially low results in patients with liver disease. Blood Venous blood specimen / Unknown 07/17/2023 10:24 AM EDT 07/17/2023 11:19 AM EDT Nicky Thibodeaux MD LAB BLOOD ORDERABLES Final Result Performing Organization Address City/[facility]/RUST Co de Phone Number [facility] [address] [place] [phone] * Hepatitis C Antibody with Reflex to HCV, RNA, Quantitative, Real-Time PCR (09/03/2022 11:58 AM EDT) Hepatitis C Antibody NON-REACT DILLON NON-REACT DILLON [facility] Index 0.02 <1.00 [facility] Comment: HCV antibody was non-reactive. There is no laboratory evidence of HCV infection. In most cases, no further action is required. However, if recent HCV exposure is suspected, a test for HCV RNA (test code 50159) is suggested. For additional information please refer to http://education.[employer]/faq/JXE57x0 (This link is being provided for informational/ educational purposes only.) Blood Venous blood specimen / Unknown 09/03/2022 11:58 AM EDT 09/03/2022 11:58 AM EDT Narrative [facility] - 09/07/2022 11:33 PM EDT FASTING:YES FASTING: YES Nicky Thibodeaux MD LAB BLOOD ORDERABLES Final Result Performing Organization Address City/[facility]/ZIP Co de Phone Number [address], [place] [address] [employer] [place] [facility] [address] [place] [address] * HIV-1/2 Antigen and Antibodies, Fourth Generation, with Reflexes (09/03/2022 11:58 AM EDT) HIV Antigen/Antibody, 4th Generation NON-REAC TIVE NON-REAC TIVE [employer] [place] [facility] [facility] Comment: HIV-1 antigen and HIV-1/HIV-2 antibodies [...] ?? For additional information please refer to http://education.[employer]/faq/DVC411 (This link is being provided for informational/ educational purposes only.) The performance of this assay has not been clinically validated in patients less than 2 years old. Blood Venous blood specimen / Unknown 09/03/2022 11:58 AM EDT 09/03/2022 11:58 AM EDT Narrative [facility] - 09/07/2022 11:33 PM EDT FASTING:YES FASTING: YES Nicky Thibodeaux MD LAB BLOOD ORDERABLES Final Result [facility] [address] [facility], [place] [address] [employer] [place] [employer] [address] [place] [address] * (ABNORMAL) THINPREP TIS PAP AND HPV mRNA E6/E7, CT/NG, TRICH (08/02/2021 11:49 AM EDT) Chlamydia trachomatis RNA, TMA, Urogenital NOT DETECTED NOT DETECTED [facility] Clinical Information: None given [facility] COMMENT SEE COMMENT [facility] Comment: The analytical performance characteristics of this assay, when used to test SurePath(TM) specimens have been determined by [employer]. The modifications have not been cleared or approved by the FDA. This assay has been validated pursuant to the CLIA regulations and is used for clinical purposes. ?? For additional information, please refer to https://[employer]/faq/DXZ225 (This link is being provided for information/ [...] has been evaluated with computer assisted technology. [email or web address] Ledger Poster: SEE COMMENT [email or web address] Comment: DCR, CT(ASCP) CT screening location: [address] ??[address] HPV nRNA E6/E7 Detected(A) Not Detected [facility] Comment: Methodology: Van Helper-Mediated Amplification This assay detects E6/E7 viral messenger RNA (mRNA) from 14 high-risk HPV types (16,18,31,33,35,39,45,51,52,56,58,59,66,68). ? The analytical performance characteristics of this assay have been determined by [employer]. The modifications have not been cleared or approved by the FDA. This assay has been validated pursuant to the CLIA regulations and is used for clinical purposes. ?? For additional information, please refer to http://[employer]/faq/KDI324y0 (This link if provided for information/ educational purposes only.) Interpretation/Res ult: SEE COMMENT [email or web address] Comment: Negative for intraepithelial lesion or malignancy. Atrophic pattern; predominantly parabasal cells LMP: NONE GIVEN [facility] Neisseria gonorrhoeae RNA, TMA, Urogenital NOT DETECTED NOT DETECTED [facility] Prev. BX: NONE GIVEN [facility] Prev. PAP: NONE GIVEN [facility] Review Ledger Poster: SEE COMMENT [facility] Comment: JXM, CT(ASCP) CT screening location: [address] ??[address] SOURCE: None given [facility] Statement Of Adequacy: SATISFACTORY FOR EVALUATION [facility] Trichomonas vaginalis, QL, TMA, PAP Vial NOT DETECTED NOT DETECTED [facility] Comment: The analytical performance characteristics of this assay have been determined by [employer]. The modifications have not been cleared or approved by the FDA. This assay has been validated pursuant to the CLIA regulations and is used for clinical purposes. ?? For additional information, please refer to http://education.[employer]/ faq/Trichomonastma (This link is being provided for information/ educational purposes only.) ?? 08/02/2021 11:4 9 AM EDT Nicky Thibodeaux MD LAB PATHOLOGY ORDERABLES F inal Result Performing Organization Address City/[facility]/ZIP Co de Phone Number [facility] [address] * Pap Smear (08/02/2021 12:00 AM EDT) Swab Nicky Thibodeaux MD LAB CYTOLOGY ORDERABLES Fi nal Result [facility] [address] [place] [phone] * Colonoscopy (12/11/2015) Colonoscopy normal with Dr. Delgado Historical Provider HEALTH MAINTENANCE Final Result from Last 3 Months or Most Recently Relevant to Health Maintenance Insurance [facility] AD[facility] Advance Directives Documents on File Type Date Recorded Patient Rod Cup Filler Expl anation Advance Directives and Living Will 07/17/2023 Health Care Proxy 07/17/23 Care Teams Hot Wire Glass Tube Cutter Relationship Specialty Start Date End Date Emmet, MD Nicky [address] [place] [address] PCP - General Family Medicine 04/20/18 Wu Manzo MD [address] [place] [address] [address] [place] [address] Pain Medicine 03/29/24 Feroz Ascencio MD [address] [place] [phone] Orthopaedic Surgery 06/15/24 Na Orozco Facilities And Grounds DirectorMiller Helper 06/25/23 Latia Guardado PA-C [facility] 04/26/24
--- OUTSIDE RECORDS SUMMARY | 2024-08-11 12:55 | XMS_ITS | Encounter Summary ---
Author Organization [employer] Address [address] 7t [place] [address] Care Team Providers Care Network Systems Analyst Name Role Phone Nicky Thibodeaux MD Primary Care Provider [phone] Wu Manzo MD Unavailable Feroz Ascencio MD Unavailable [phone] Encounter Details Date Type Department Care Team ([facility] st Contact Info) Description 2023 Orders Only [facility] [address] [place], [place] [phone] Nicky Thibodeaux MD [address] [place], [place] [phone] Social History Tobacco Use Types Packs/Day Years [...] AM EDT Telemedicine [facility] [address] [place] [phone] Nicky Thibodeaux MD [address] [place] [address] documented as of this encounter Visit Diagnoses Not on filedocumented in this encounter Additional Health Concerns Assessment Noted Time PHQ-9 Depression Total Score: 22 023 2:09 PM EDT documented as of this encounter Care Teams Network Systems Analyst Relationship Specialty Start Date End Date Nicky Thibodeaux MD [address] [place] [address] PCP - General Family Medicine 04/20/18 Wu Manzo MD [address] [place] [address] Pain Medicine 03/29/24 Feroz Ascencio MD [address] [place] [phone] Orthopaedic Surgery 06/15/24 Na Orozco Tax Manager CpaGuest Service Agent 06/25/23 Latia Guardado PA-C [facility] 04/26/24 documented as of this encounter
--- OUTSIDE RECORDS SUMMARY | 2024-08-11 12:55 | XMS_ITS | Encounter Summary ---
Author Organization [employer] Address [address] [facility] 7t [place] [address] Care Team Providers Care Field Support Engineer Name Role Phone Nicky Thibodeaux MD Primary Care Provider [phone] Wu Manzo MD Unavailable Feroz Ascencio MD Unavailable [phone] Reason for Visit * Reason Onset Date Comments Medication Question 12/11/2022 Encounter Details Date Type Department Care Team (Late st Contact Info) Description 12/11/2022 Telephone [facility] [address] [place] [address] Chelsi Canseco ANP 230 [place] [address] Medication Question Social History Tobacco Use Types [...] 09/14/2024 11:30 AM EDT Telemedicine [facility] [address] [place] [address] Nicky Thibodeaux MD [address] [place] [address] documented as of this encounter Visit Diagnoses Diagnosis Essential (primary) hypertension Unspecified essential hypertension documented in this encounter Additional Health Concerns Assessment Noted Time PHQ-9 Depression Total Score: 22 023 2:09 PM EDT documented as of this encounter Care Teams Field Support Engineer Relationship Specialty Start Date End Date Nicky Thibodeaux MD [address] [place] [address] PCP - General Family Medicine 04/20/18 Wu Manzo MD [address] [place] [address] Drive [address] [place] [phone] Pain Medicine 03/29/24 Feroz Ascencio MD [address] [place] [phone] Orthopaedic Surgery 06/15/24 Na Orozco Network ProgrammerHand Molder And Caster 06/25/23 Latia Guardado PA-C [facility] 04/26/24 documented as of this encounter
--- OUTSIDE RECORDS SUMMARY | 2024-08-11 12:55 | XMS_ITS | Encounter Summary ---
Author Organization [employer] Address [address] [facility] 7t [place] [address] Care Team Providers Care Electrical Apprentice Name Role Phone Nicky Thibodeaux MD Primary Care Provider +1- [phone] Wu Manzo MD Unavailable Feroz Ascencio MD Unavailable [phone] Encounter Details Date Type Department Care Team ([facility] Contact Info) Description 08/12/2022 Orders Only [facility] MEDICINE [address] [place] [address] Nicky Thibodeaux MD [address] [place], [place] [phone] Social History Tobacco Use Types Packs/Day Years [...] Upcoming Encounters Date Type Department Care Team ([facility] Contact Info) Description 09/14/2024 11:30 AM EDT Telemedicine [facility]INE [address] [place] [address] Nicky Thibodeaux MD 230 [place] [address] documented as of this encounter Visit Diagnoses Not on filedocumented in this encounter Additional Health Concerns Assessment Noted Time PHQ-9 Depression Total Score: 22 023 2:09 PM EDT documented as of this encounter Care Teams Electrical Apprentice Relationship Specialty Start Date End Date Nicky Thibodeaux MD 230 [place] [address] PCP - General Family Medicine 04/20/18 Wu Manzo MD [address] [place] [address] Drive [address] [place] [address] Pain Medicine 03/29/24 Feroz Ascencio MD [address] [place] [phone] Orthopaedic Surgery 06/15/24 Na Orozco Degreasing Solution MixerAutomatic Driller And Reamer 06/25/23 Latia Guardado PA-C [facility] 04/26/24 documented as of this encounter
--- OUTSIDE RECORDS SUMMARY | 2024-08-11 12:55 | XMS_ITS | Encounter Summary ---
Author Organization [email or web address] Address [address] [facility] [address] 7t [place] [address] Care Team Providers Care Cheese Cook Name Role Phone Nicky Thibodeaux MD Primary Care Provider +1- [phone] Wu Manzo MD Unavailable Feroz Ascencio MD Unavailable [phone] Reason for Visit * Reason Onset Date Comments PT-1 12/08/2023 Encounter Details Date Type Department Care Team (Late st Contact Info) Description 12/08/2023 Telephone [facility] MEDICINE 230 [place], [place] [phone] Nicky Thibodeaux MD 230 [place], [place] [phone] PT-1 Social History Tobacco Use Types Packs/Day [...] Y/N: Yes Provider name or facility name: [facility] pain management Facility Address: [address] [place] [address] Escort needed: Y/N: No Do you have a wheelchair: Y/N: No If yes- Manual or electric: N/A (uses walker) Visits: twice a month documented in this encounter Plan of Treatment Upcoming Encounters Date Type Department Care Team (Late st Contact Info) Description 09/14/2024 11:30 AM EDT Telemedicine [facility] MEDICINE [address] [place] [address] Nicky Thibodeaux MD [address] [place] [address] documented as of this encounter Visit Diagnoses Not on filedocumented in this encounter Additional Health Concerns Assessment Noted Time PHQ-9 Depression Total Score: 22 023 2:09 PM EDT documented as of this encounter Care Teams Cheese Cook Relationship Specialty Start Date End Date Nicky Thibodeaux MD [address] [place] [address] PCP - General Family Medicine 04/20/18 Wu Manzo MD [address] [place] [address] Drive [address] [place] [address] Pain Medicine 03/29/24 Feroz Ascencio MD [address] [place] [phone] Orthopaedic Surgery 06/15/24 Na Orozco Devulcanizer HeadDirector Of Public Health 06/25/23 TREASURE [facility] 04/26/24 documented as of this encounter
--- OUTSIDE RECORDS SUMMARY | 2024-08-11 12:55 | XMS_ITS | Encounter Summary ---
Author Organization [employer] Address 75 [facility] 7t [place] [address] Care Team Providers Care Devops Architect Name Role Phone Nicky Thibodeaux MD Primary Care Provider +1- [phone] Wu Manzo MD Unavailable Feroz Ascencio MD Unavailable Reason for Visit * Reason Onset Date Comments Durable Medical Equipment 08/07/2022 Encounter Details Date Type Department Care Team (Late st Contact Info) Description 08/07/2022 Telephone [facility] MEDICINE 230 [place], [place] [phone] Nicky Thibodeaux MD 230 [place], [place] [phone] Durable Medical Equipment Social History Tobacco Use [...] - 08/14/2022 9:23 AM EDT Tc from [facility] requesting status on a form send over for [facility] grab [facility]. Please contact Renzo at [phone] * Telephone Encounter - Wellington Smith - 08/07/2022 9:57 AM EDT Tc from [facility] with [facility] requesting a status on a form sent over for a [facility] Grab bar. Please contact renzo at [phone] documented in this encounter Plan of Treatment Upcoming Encounters Date Type Department Care Team (Late st Contact Info) Description 09/14/2024 11:30 AM EDT Telemedicine [facility] MEDICINE [address] [place] [address] Nicky Thibodeaux MD 230 [place] [address] documented as of this encounter Visit Diagnoses Not on filedocumented in this encounter Additional Health Concerns Assessment Noted Time PHQ-9 Depression Total Score: 22 023 2:09 PM EDT documented as of this encounter Care Teams Devops Architect Relationship Specialty Start Date End Date Nicky Thibodeaux MD [address] [place] [address] PCP - General Family Medicine 04/20/18 Wu Manzo MD [address] [facility] [address] [place] [address] Pain Medicine 03/29/24 Feroz Ascencio MD [address] [place] [phone] Orthopaedic Surgery 06/15/24 Na Orozco Furnace FirerPearl Cutter 06/25/23 TREASURE [facility] 04/26/24 documented as of this encounter
--- OUTSIDE RECORDS SUMMARY | 2024-08-11 12:55 | XMS_ITS | Clinical Summary ---
Author Organization [facility] Address [address] [place] [address] Care Team Providers Care Machinist Helper Marine Name Role Phone Nicky Thibodeaux MD Primary Care Provider +1- [phone] Social History Tobacco Use Types Packs/Day Years [...] - 2023-2 5 season) 2023 Influenza Vaccine (Season Ended) 2024 RSV Immunization Adult Patie nts (1 - 1-dose 75+ series) 2040 HIB Vaccines Aged Out No longer eligi [...] age to complete this topic Care Teams Machinist Helper Marine Relationship Specialty Start Date End Date Nicky Thibodeaux MD [address] [place] [phone] PCP - General Internal Medicine 12/21/13
== END 2024-08-11 11:25 | disposition home or self-care (01) ==
LOC: HO.PMC 10:58
PROVIDERS: PCP Family Medicine; Visit Provider Anesthesiology
DX: M46.1 Sacroiliitis, not elsewhere classified (principal); M53.3 Sacrococcygeal disorders, not elsewhere classified; M96.1 Postlaminectomy syndrome, not elsewhere classified; G89.4 Chronic pain syndrome
CPT/HCPCS: 99213

== ENCOUNTER 2024-08-11 10:58 | Outpatient (REF) | payer MEDICAID, SELFPAY ==
--- NOTE | ~2024-08-11 | XR_ITS ---
CLINICAL HISTORY: PERSISTENT PAIN,AXIAL THORACIC SPINE, XMAS TREE FELL ON PATIENT IN DEC --- Addition al Notes or Special Instructions: WO 3 views thoracic spine Comparison: None Findings: Normal vertebral body alignment. No acute fractures or dislocation. Multilevel disc space narrowing and endplate osteophyte formation, as well as facet hypertrophy. IMPRESSION: No acute findings. This document has been electronically signed by: Kailey Bernal MD on 08/16/2024 14:26:35
--- NOTE | ~2024-08-11 | XR_ITS ---
CLINICAL HISTORY: LOW BACK PAIN,S P LUMBAR FUSION W OBLIQUE INTERODY FUSION --- Additional Notes or S pecial Instructions: WO 3 views lumbar spine Comparison: None Findings: Grade 1 anterolisthesis of L5 on S1. Posterior fusion at L5-S1. Interbody device placement at L5-S1. No acute fractures or dislocation. Multilevel disc space narrowing and endplate osteophyte formation, as well as facet hypertrophy.. IMPRESSION: 1. Postsurgical sequelae. This document has been electronically signed by: Kailey Bernal MD on 08/16/2024 14:24:53
--- OUTSIDE RECORDS SUMMARY | 2024-08-11 13:58 | XMS_ITS | Encounter Summary ---
Author Organization [employer] Address [address] [facility] [address] 7t [place] [address] Care Team Providers Care Rubber Tester Name Role Phone Nicky Thibodeaux MD Primary Care Provider +1- [phone] Wu Manzo MD Unavailable Feroz Ascencio MD Unavailable [phone] Encounter Details Date Type Department Care Team ([facility] st Contact Info) Description 03/11/2023 Abstract [facility] MEDICINE 230 [place], [place] [phone] Thuy Valenzuela Social History Tobacco Use Types [...] Info) Description 09/14/2024 11:30 AM EDT Telemedicine [facility] MEDICINE [address] [place] [address] Nicky Thibodeaux MD 230 [place] [address] documented as of this encounter Visit Diagnoses Not on filedocumented in this encounter Additional Health Concerns Assessment Noted Time PHQ-9 Depression Total Score: 22 023 2:09 PM EDT documented as of this encounter Care Teams Rubber Tester Relationship Specialty Start Date End Date Nicky Thibodeaux MD [address] [place] [address] PCP - General Family Medicine 04/20/18 Wu Manzo MD [address] [place] [address] Drive [address] [place] [address] Pain Medicine 03/29/24 Feroz Ascencio MD [address] [place] [phone] Orthopaedic Surgery 06/15/24 Na Orozco Psychologist Military PersonnelInterventional Physician 06/25/23 Latia Guardado PA-C [facility] 04/26/24 documented as of this encounter
--- OUTSIDE RECORDS SUMMARY | 2024-08-11 13:58 | XMS_ITS | Encounter Summary ---
Author Organization [employer] Address [address] [facility] [address] 7t [place] [address] Care Team Providers Care Harnessmaker Name Role Phone Nicky Thibodeaux MD Primary Care Provider +1- [phone] Wu Manzo MD Unavailable Feroz Ascencio MD Unavailable [phone] Reason for Visit * Reason Onset Date Comments Med Refill 04/29/2023 Encounter Details Date Type Department Care Team (Late st Contact Info) Description 04/29/2023 Telephone [facility] MEDICINE 230 [place], [place] [phone] Nicky Thibodeaux MD [address] [place], [place] [phone] Med Refill Social History Tobacco Use Types [...] 500 MG tablet To be sent to: [facility]/pharmacy #[id number] documented in this encounter Plan of Treatment Upcoming Encounters Date Type Department Care Team (Late st Contact Info) Description 09/14/2024 11:30 AM EDT Telemedicine [facility] MEDICINE [address] [place] [address] Nicky Thibodeaux MD 230 [place] [address] documented as of this encounter Visit Diagnoses Not on filedocumented in this encounter Additional Health Concerns Assessment Noted Time PHQ-9 Depression Total Score: 22 023 2:09 PM EDT documented as of this encounter Care Teams Harnessmaker Relationship Specialty Start Date End Date Nicky Thibodeaux MD 230 [place] [address] PCP - General Family Medicine 04/20/18 Wu Manzo MD [address] [place] [address] Drive [address] [place] [address] Pain Medicine 03/29/24 Feroz Ascencio MD [address] [place] [phone] Orthopaedic Surgery 06/15/24 Na Orozco Container Packer OperatorCocoa Mill Operator 06/25/23 Latia Guardado PA-C [facility] 04/26/24 documented as of this encounter
--- OUTSIDE RECORDS SUMMARY | 2024-08-11 13:58 | XMS_ITS | Encounter Summary ---
Author Organization [employer] Address [address] [place] [address] 7t [place] [address] Care Team Providers Care Cook Helper Name Role Phone Nicky Thibodeaux MD Primary Care Provider +1- [phone] Wu Manzo MD Unavailable Feroz Ascencio MD Unavailable [phone] Encounter Details Date Type Department Care Team (Late st Contact Info) Description 05/05/2022 Abstract [facility]ICINE [address] [place] [address] [phone] Nicky Thibodeaux MD [address] [place] [address] [phone] Social History Tobacco Use Types Packs/Day Years [...] 11:30 AM EDT Telemedicine [facility] [address] [place] [address] [phone] Nicky Thibodeaux MD [address] [place] [address] [phone] documented as of this encounter Procedures Procedure Name Priority Date/Time Associated Diagnosis Comments COLPOSCOPY Routine 09/11/2021 12:00 AM EDT PAP SMEAR Routine 08/02/2021 12:00 AM EDT MAMMOGRAPHY Routine 10/29/2020 COLONOSCOPY Routine 12/11/2015 documented in this encounter Results * Colposcopy (09/11/2021 12:00 AM EDT) Historical Provider IN CLINIC/BEDSIDE ORDERAB LES Final Result Performing Organization Address [facility]/ZIP Co de Phone Number [facility] [address] [place] [address] [phone] * Pap Smear (08/02/2021 12:00 AM EDT) Swab Nicky Thibodeaux MD LAB CYTOLOGY ORDERABLES Fi nal Result Performing Organization Address [facility]/ZIP Co de Phone Number [facility] [address] [place] [address] [phone] * Mammography (10/29/2020) Mammogram BIRADS 2 Anatomical Region Laterality Modality Other Historical Provider HEALTH MAINTENANCE Final Result * Colonoscopy (12/11/2015) Colonoscopy normal with Dr. Delgado Historical Provider HEALTH MAINTENANCE Final Result documented in this encounter Visit Diagnoses Not on filedocumented in this encounter Care Teams Cook Helper Relationship Specialty Start Date End Date Nicky Thibodeaux MD [address] [place] [address] PCP - General Family Medicine 04/20/18 Wu [address]zo [address] [place] [address] Pain Medicine 03/29/24 Feroz Ascencio MD [address] [place] [phone] Orthopaedic Surgery 06/15/24 Na Sherried Brick Chimney BuilderSign Manufacturer 06/25/23 TREASURE [facility] 04/26/24 documented as of this encounter
--- OUTSIDE RECORDS SUMMARY | 2024-08-11 13:58 | XMS_ITS | Encounter Summary ---
Author Organization [employer] Address [address] [facility] [address] 7t [place] [address] Care Team Providers Care Advertising Teacher Name Role Phone Nicky Thibodeaux MD Primary Care Provider [phone]- [phone] Wu Manzo MD Unavailable Feroz Ascencio MD Unavailable [phone] Reason for Visit * Reason Onset Date Comments Pre-visit Planning 11/09/2023 Encounter Details Date Type Department Care Team (Late st Contact Info) Description 11/09/[address] [facility] MEDICINE 230 [place] [address] Nicky Thibodeaux MD 230 [place], [place] [phone] Pre-visit Planning Social History Tobacco Use Types [...] 09/14/2024 11:30 AM EDT Telemedicine [facility] MEDICINE 230 [place] [address] Nicky Thibodeaux MD 230 [place] [address] documented as of this encounter Visit Diagnoses Not on filedocumented in this encounter Additional Health Concerns Assessment Noted Time PHQ-9 Depression Total Score: 22 023 2:09 PM EDT documented as of this encounter Care Teams Advertising Teacher Relationship Specialty Start Date End Date Nicky Thibodeaux MD 230 [place] [address] PCP - General Family Medicine 04/20/18 Wu Manzo MD [address] [facility] [address] [place] [address] Pain Medicine 03/29/24 Feroz Ascencio MD [address] [place] [phone] Orthopaedic Surgery 06/15/24 Na Orozco Section SupervisorImpersonator Character 06/25/23 TREASURE [facility] 04/26/24 documented as of this encounter
--- OUTSIDE RECORDS SUMMARY | 2024-08-11 13:58 | XMS_ITS | Encounter Summary ---
Author Organization [employer] Address [address] [facility] [address] 7t [place] [address] Care Team Providers Care Criminal Research Specialist Name Role Phone Nicky Thibodeaux MD Primary Care Provider +1- [phone] Wu Manzo MD Unavailable Feroz Ascencio MD Unavailable [phone] Reason for Visit * Reason Comments Med Refill Encounter Details Date Type Department Care Team (Late st Contact Info) Description 05/26/2024 Refill [facility] MEDICINE [address] [place] [address] Nicky Thibodeaux MD 230 [place] [address] Pain Social History Tobacco Use Types Packs/Day [...] 09/14/2024 11:30 AM EDT Telemedicine [facility] MEDICINE 230 [place] [address] Nicky Thibodeaux MD [address] [place] [address] documented as of this encounter Visit Diagnoses Diagnosis Pain Generalized pain documented in this encounter Additional Health Concerns Assessment Noted Time PHQ-9 Depression Total Score: 14 024 10:51 AM EST documented as of this encounter Care Teams Criminal Research Specialist Relationship Specialty Start Date End Date Nicky Thibodeaux MD 230 [place] [address] PCP - General Family Medicine 04/20/18 Wu Manzo MD [address] [facility] [address] [place] [address] Pain Medicine 03/29/24 Feroz Ascencio MD [address] [place] [phone] Orthopaedic Surgery 06/15/24 Na Orozco Supervisor Mail CarriersFlame Burner 06/25/23 TREASURE [facility] 04/26/24 documented as of this encounter
--- OUTSIDE RECORDS SUMMARY | 2024-08-11 13:58 | XMS_ITS | Encounter Summary ---
Author Organization [employer] Address [address] [facility] [address] 7t [place] [address] Care Team Providers Care Resource Specialist Teacher Name Role Phone Nicky Thibodeaux MD Primary Care Provider [phone]- [phone] Wu Manzo MD Unavailable Feroz Ascencio MD Unavailable [phone] Reason for Visit * Reason Onset Date Comments ER Follow-up 05/30/2024 Encounter Details Date Type Department Care Team (Late st Contact Info) Description 05/30/2024 Telephone [facility] MEDICINE 230 [place] [address] Nicky Thibodeaux MD 230 [place] [address] ER Follow-up Social History Tobacco Use Types [...] it, etc. Strongly advised to come to [facility], gave extended hours today, pt declined, stated she has to go to a store now and stated has no ride, automotive service writer offered pt Uber, pt again declined [...] 05/30/2024 2:30 PM EST Pt went to [facility] ED on 05/27/24 for laceration to left [...] ED visit on : Date: 05/27/24 Hospital: [facility] ED Seen for: Injury on hand Pt [...] 09/14/2024 11:30 AM EDT Telemedicine [facility] MEDICINE 230 [place] [address] Nicky Thibodeaux MD 230 [place] [address] documented as of this encounter Visit Diagnoses Not on filedocumented in this encounter Additional Health Concerns Assessment Noted Time PHQ-9 Depression Total Score: 14 03/14/2 024 10:51 AM EST documented as of this encounter Care Teams Resource Specialist Teacher Relationship Specialty Start Date End Date Nicky Thibodeaux MD 230 [place] [address] PCP - General Family Medicine 04/20/18 Wu Manzo MD [address] [facility] [address] [place] [address] Pain Medicine 03/29/24 Feroz Ascencio MD [address] [place] [phone] Orthopaedic Surgery 06/15/24 Na Orozco Registered Nurse TeacherFood Technologist 06/25/23 TREASURE [facility] 04/26/24 documented as of this encounter
--- OUTSIDE RECORDS SUMMARY | 2024-08-11 13:58 | XMS_ITS | Clinical Summary ---
Author Organization [facility] Address [address] [place] [address] Care Team Providers Care Factory Machine Computer Operator Name Role Phone Nicky Thibodeaux MD Primary Care Provider [phone]- [phone] Social History Tobacco Use Types Packs/Day Years [...] age to complete this topic Care Teams Factory Machine Computer Operator Relationship Specialty Start Date End Date Nicky Thibodeaux MD [address] [place] [phone] PCP - General Internal Medicine 12/21/13
--- OUTSIDE RECORDS SUMMARY | 2024-08-11 13:58 | XMS_ITS | Encounter Summary ---
Author Organization [employer] Address [address] [place] [address] 7t [place] [address] Care Team Providers Care Child'S Nurse Name Role Phone Nicky Thibodeaux MD Primary Care Provider +1- [phone] Wu Manzo MD Unavailable Feroz Ascencio MD Unavailable [phone] Encounter Details Date Type Department Care Team (Late Contact Info) Description 05/22/2022 Orders Only [facility] MEDICINE [address] [place] [address] [phone] Nereida Horner LPN Social History Tobacco Use [...] Info) Description 09/14/2024 11:30 AM EDT Telemedicine [facility] MEDICINE [address] [place] [address] [phone] Nicky Thibodeaux MD 230 [place], [place] [phone] documented as of this encounter Visit Diagnoses Not on filedocumented in this encounter Care Teams Child'S Nurse Relationship Specialty Start Date End Date Nicky Thibodeaux MD [address] [place] [address] [phone] PCP - General Family Medicine 04/20/18 Wu Manzo MD [address] [place] [address] Pain Medicine 03/29/24 Feroz Ascencio MD [address] [place] [phone] Orthopaedic Surgery 06/15/24 Na Orozco Slag ExpanderPaint Department Supervisor 06/25/23 TREASURE [facility] 04/26/24 documented as of this encounter
--- OUTSIDE RECORDS SUMMARY | 2024-08-11 13:58 | XMS_ITS | Encounter Summary ---
Author Organization [employer] Address [address] [facility] 7t [place] [address] Care Team Providers Care Professor Of Languages Name Role Phone Nicky Thibodeaux MD Primary Care Provider +1- [phone] Wu Manzo MD Unavailable Feroz Ascencio MD Unavailable [phone] Reason for Visit * Reason Comments Med Refill Encounter Details Date Type Department Care Team (Late st Contact Info) Description 04/09/2023 Refill [facility] MEDICINE [address] [place] [address] Nicky Thibodeaux MD 230 [place] [address] Pain Social History Tobacco Use Types Packs/Day [...] 09/14/2024 11:30 AM EDT Telemedicine [facility] MEDICINE [address] [place] [address] Nicky Thibodeaux MD 230 [place] [address] documented as of this encounter Visit Diagnoses Diagnosis Pain Generalized pain documented in this encounter Additional Health Concerns Assessment Noted Time PHQ-9 Depression Total Score: 22 023 2:09 PM EDT documented as of this encounter Care Teams Professor Of Languages Relationship Specialty Start Date End Date Nicky Thibodeaux MD 230 [place] [address] PCP - General Family Medicine 04/20/18 Wu Manzo MD [address] [place] [address] Pain Medicine 03/29/24 Feroz Ascencio MD [address] [place] [phone] Orthopaedic Surgery 06/15/24 Na Orozco Staff VeterinarianMedical Support Specialist 06/25/23 Latia Guardado PA-C [facility] 04/26/24 documented as of this encounter
--- OUTSIDE RECORDS SUMMARY | 2024-08-11 13:58 | XMS_ITS | Encounter Summary ---
Author Organization [employer] Address [address] [facility] [address] 7t [place] [address] Care Team Providers Care Search Engine Marketing Specialist Name Role Phone Nicky Thibodeaux MD Primary Care Provider +1- [phone] Wu Manzo MD Unavailable Feroz Ascencio MD Unavailable [phone] Reason for Visit * Reason Comments Med Refill Encounter Details Date Type Department Care Team (Late st Contact Info) Description 08/09/2024 Refill [facility] MEDICINE [address] [place] [address] Nicky Thibodeaux MD [address] [place] [address] Pain Social History Tobacco Use Types Packs/Day [...] Info) Description 09/14/2024 11:30 AM EDT Telemedicine [facility] MEDICINE [address] [place] [address] Nicky Thibodeaux MD [address] [place] [address] documented as of this encounter Visit Diagnoses Diagnosis Pain Generalized pain documented in this encounter Additional Health Concerns Assessment Noted Time PHQ-9 Depression Total Score: 14 024 10:51 AM EST documented as of this encounter Care Teams Search Engine Marketing Specialist Relationship Specialty Start Date End Date Nicky Thibodeaux MD [address] [place] [address] PCP - General Family Medicine 04/20/18 Wu Manzo MD [address] [facility] [address] [place] [address] Pain Medicine 03/29/24 Feroz Ascencio MD [address] [place] [phone] Orthopaedic Surgery 06/15/24 Na Orozco Licensed Optical DispenserPush Button Switch Assembler 06/25/23 TREASURE [facility] 04/26/24 documented as of this encounter
--- OUTSIDE RECORDS SUMMARY | 2024-08-11 13:58 | XMS_ITS | Encounter Summary ---
Author Organization [employer] Address 75 [facility] 7t [place] [address] Care Team Providers Care Continuous Linter Drier Operator Name Role Phone Nicky Thibodeaux MD Primary Care Provider +1- [phone] Wu Manzo MD Unavailable Feroz Ascencio MD Unavailable [phone] Reason for Visit * Reason Comments Med Refill Encounter Details Date Type Department Care Team ([facility] st Contact Info) Description 04/29/2023 Refill [facility] [address] [place] [address] Chelsi Canseco ANP 230 [place], [place] [phone] Social History Tobacco Use Types Packs/Day Years [...] 09/14/2024 11:30 AM EDT Telemedicine [facility] [address] [place] [address] Nicky Thibodeaux MD 230 [place] [address] documented as of this encounter Visit Diagnoses Not on filedocumented in this encounter Additional Health Concerns Assessment Noted Time PHQ-9 Depression Total Score: 22 023 2:09 PM EDT documented as of this encounter Care Teams Continuous Linter Drier Operator Relationship Specialty Start Date End Date Nicky Thibodeaux MD 230 [place] [address] PCP - General Family Medicine 04/20/18 Wu Manzo MD [address] [place] [address] Pain Medicine 03/29/24 Feroz Ascencio MD [address] [place] [phone] Orthopaedic Surgery 06/15/24 Na Orozco Procedures RnLactation Consultant 06/25/23 Latia Guardado PA-C [facility] 04/26/24 documented as of this encounter
--- OUTSIDE RECORDS SUMMARY | 2024-08-11 13:58 | XMS_ITS | Encounter Summary ---
Author Organization [employer] Address [address] [place] [address] 7t [place] [address] Care Team Providers Care Development Team Lead Name Role Phone Nicky Thibodeaux MD Primary Care Provider +1- [phone] Wu Manzo MD Unavailable Feroz Ascencio MD Unavailable Reason for Visit * Reason Comments Med Refill Encounter Details Date Type Department Care Team (Late st Contact Info) Description 2022 Refill [facility] [address] [place] [address] [phone] Krystin Frederick, GRACIELA [address] [place] [address] [place] [address] Chronic migraine without aura without status migrainosus, [...] Description 09/14/2024 11:30 AM EDT Telemedicine [facility] 230 [place], [place] [phone] Nicky Thibodeaux MD 230 [place], [place] [phone] documented as of this encounter Visit Diagnoses Diagnosis Chronic migraine without aura without status migrainosus, not intractable documented in this encounter Care Teams Development Team Lead Relationship Specialty Start Date End Date [place], MD Nicky [address] [place] [address] PCP - General Family Medicine 04/20/18 Wu Manzo MD [address] [place] [address] Pain Medicine 03/29/24 Feroz Ascencio MD [address] [place] [phone] Orthopaedic Surgery 06/15/24 Na Orozco Panama Hat Hydraulic Press OperatorRoller Inspector And Mender 06/25/23 TREASURE [facility] 04/26/24 documented as of this encounter
--- OUTSIDE RECORDS SUMMARY | 2024-08-11 13:58 | XMS_ITS | Encounter Summary ---
Author Organization [employer] Address 75 [facility] 7t [place] [address] Care Team Providers Care Corrective Therapy Aide Teacher Name Role Phone Nicky Thibodeaux MD Primary Care Provider +1- [phone] Wu Manzo MD Unavailable Feroz Ascencio MD Unavailable [phone] Encounter Details Date Type Department Care Team ([facility] Contact Info) Description 08/12/2022 Orders Only [facility] MED[facility] [address] [place] [address] Nicky Thibodeaux MD 230 [place], [place] [phone] Social History Tobacco Use Types Packs/Day Years [...] Upcoming Encounters Date Type Department Care Team ([facility] Contact Info) Description 09/14/2024 11:30 AM EDT Telemedicine [facility] [address] [place] [address] Nicky Thibodeaux MD 230 [place] [address] documented as of this encounter Visit Diagnoses Not on filedocumented in this encounter Additional Health Concerns Assessment Noted Time PHQ-9 Depression Total Score: 22 023 2:09 PM EDT documented as of this encounter Care Teams Corrective Therapy Aide Teacher Relationship Specialty Start Date End Date Nicky Thibodeaux MD 230 [place] [address] PCP - General Family Medicine 04/20/18 Wu Manzo MD [address] [place] [address] [address] [place] [address] Pain Medicine 03/29/24 Feroz Ascencio MD [address] [place] [phone] Orthopaedic Surgery 06/15/24 Na Orozco Wire Basket MakerLabor Crew Supervisor 06/25/23 Latia Guardado PA-C [facility] 04/26/24 documented as of this encounter
--- OUTSIDE RECORDS SUMMARY | 2024-08-11 13:58 | XMS_ITS | Encounter Summary ---
Author Organization [employer] Address 75 [facility] 7t [place] [address] Care Team Providers Care Behavioral Consultant Name Role Phone Nicky Thibodeaux MD Primary Care Provider [phone]- [phone] Wu Manzo MD Unavailable Feroz Ascencio MD Unavailable [phone] Reason for Visit * Reason Onset Date Comments Durable Medical Equipment 08/07/2022 Encounter Details Date Type Department Care Team (Late st Contact Info) Description 08/07/2022 Telephone [facility] 230 [place], [place] [phone] Nicky Thibodeaux MD 230 [place], [place] [phone] Durable Medical Equipment Social History Tobacco Use [...] - 08/14/2022 9:23 AM EDT Tc from [facility] requesting status on a form send over for [facility] grab [facility]. Please contact Renzo at [phone] * Telephone Encounter - Wellington Smith - 08/07/2022 9:57 AM EDT Tc from [facility] with [facility] [place] requesting a status on a form sent over for a [facility] Grab bar. Please contact renzo at [phone] documented in this encounter Plan of Treatment Upcoming Encounters Date Type Department Care Team (Late st Contact Info) Description 09/14/2024 11:30 AM EDT Telemedicine [facility] [address] [place] [address] Nicky Thibodeaux MD 230 [place] [address] documented as of this encounter Visit Diagnoses Not on filedocumented in this encounter Additional Health Concerns Assessment Noted Time PHQ-9 Depression Total Score: 22 023 2:09 PM EDT documented as of this encounter Care Teams Behavioral Consultant Relationship Specialty Start Date End Date Nicky Thibodeaux MD [address] [place] [address] PCP - General Family Medicine 04/20/18 Wu Manzo MD [address] [place] [address] Pain Medicine 03/29/24 Feroz Ascencio MD [address] [place] [phone] Orthopaedic Surgery 06/15/24 Na Orozco Heat Treat Furnace OperatorBeamer Hand 06/25/23 TREASURE [facility] 04/26/24 documented as of this encounter
--- OUTSIDE RECORDS SUMMARY | 2024-08-11 13:58 | XMS_ITS | Encounter Summary ---
Author Organization [employer] Address [address] [facility] [address] 7t [place] [address] Care Team Providers Care Pet Handler Name Role Phone Nicky Thibodeaux MD Primary Care Provider [phone]- [phone] Wu Manzo MD Unavailable Feroz Ascencio MD Unavailable [phone] Reason for Visit * Reason Onset Date Comments PA 10/12/2023 Encounter Details Date Type Department Care Team ([facility] st Contact Info) Description 10/12/2023 Telephone [facility] 230 [place], [place] [phone] Nicky Thibodeaux MD 230 [place], [place] [phone] PA Social History Tobacco Use Types Packs/Day [...] EDT Telemedicine [facility] [address] [place] [address] Nicky Thibodeaux MD [address] [place] [address] documented as of this encounter Visit Diagnoses Not on filedocumented in this encounter Additional Health Concerns Assessment Noted Time PHQ-9 Depression Total Score: 22 023 2:09 PM EDT documented as of this encounter Care Teams Pet Handler Relationship Specialty Start Date End Date Nicky Thibodeaux MD 230 [place] [address] PCP - General Family Medicine 04/20/18 Wu Manzo MD [address] [facility] [address] [place] [address] Pain Medicine 03/29/24 Feroz Ascencio MD [address] [place] [phone] Orthopaedic Surgery 06/15/24 Na Orozco Automotive Fuel Systems ConverterBehavior Therapist 06/25/23 TREASURE [facility] 04/26/24 documented as of this encounter
--- OUTSIDE RECORDS SUMMARY | 2024-08-11 13:58 | XMS_ITS | Encounter Summary ---
Author Organization [employer] Address 75 [facility] 7t [place] [address] Care Team Providers Care Nurse Informatics Educator Name Role Phone Nicky Thibodeaux MD Primary Care Provider [phone]- [phone] Wu Manzo MD Unavailable Feroz Ascencio MD Unavailable [phone] Reason for Visit * Reason Comments Med Refill Encounter Details Date Type Department Care Team (Late st Contact Info) Description 09/30/2022 Refill [facility]INE 230 [place] [address] Deborah Stratton MD 230 [place] [address] Chronic migraine without aura without status migrainosus, [...] Info) Description 09/14/2024 11:30 AM EDT Telemedicine [facility] MED[facility]INE 230 [place] [address] Nicky Thibodeaux MD 230 [place] [address] documented as of this encounter Visit Diagnoses Diagnosis Chronic migraine without aura without status migrainosus, not intractable documented in this encounter Additional Health Concerns Assessment Noted Time PHQ-9 Depression Total Score: 22 023 2:09 PM EDT documented as of this encounter Care Teams Nurse Informatics Educator Relationship Specialty Start Date End Date Nicky Thibodeaux MD 230 [place] [address] PCP - General Family Medicine 04/20/18 Wu Manzo MD [address] [place] [address] Drive [address] [place] [address] Pain Medicine 03/29/24 Feroz Ascencio MD [address] [place] [phone] Orthopaedic Surgery 06/15/24 Na Orozco Clinical Nurse EducatorMachine Assembler For Puller Over 06/25/23 TREASURE [facility] 04/26/24 documented as of this encounter
--- OUTSIDE RECORDS SUMMARY | 2024-08-11 13:58 | XMS_ITS | Encounter Summary ---
Author Organization [employer] Address [address] [facility] [facility] [address] 7t [place] [address] Care Team Providers Care Vehicle Operator Name Role Phone Nicky Thibodeaux MD Primary Care Provider [phone]- [phone] Wu Manzo MD Unavailable Feroz Ascencio MD Unavailable [phone] Reason for Visit * Reason Onset Date Comments PT-1 12/08/2023 Encounter Details Date Type Department Care Team (Late st Contact Info) Description 12/08/2023 Telephone [facility] MED[facility] 230 [place], [place] [phone] Nicky Thibodeaux MD 230 [place], [place] [phone] PT-1 Social History Tobacco Use Types Packs/Day [...] Y/N: Yes Provider name or facility name: [facility] pain management Facility Address: [address] [place] [address] Escort needed: Y/N: No Do you have a wheelchair: Y/N: No If yes- Manual or electric: N/A (uses walker) Visits: twice a month documented in this encounter Plan of Treatment Upcoming Encounters Date Type Department Care Team (Late st Contact Info) Description 09/14/2024 11:30 AM EDT Telemedicine [facility] [address] [place] [address] Nicky Thibodeaux MD 230 [place] [address] documented as of this encounter Visit Diagnoses Not on filedocumented in this encounter Additional Health Concerns Assessment Noted Time PHQ-9 Depression Total Score: 22 023 2:09 PM EDT documented as of this encounter Care Teams Vehicle Operator Relationship Specialty Start Date End Date Nicky Thibodeaux MD [address] [place] [address] PCP - General Family Medicine 04/20/18 Wu Manzo MD [address] [place] [address] Drive [address] [place] [address] Pain Medicine 03/29/24 Feroz Ascencio MD [address] [place] [phone] Orthopaedic Surgery 06/15/24 Na Orozco Protection ConsultantIt Data Architect 06/25/23 TREASURE [facility] 04/26/24 documented as of this encounter
--- OUTSIDE RECORDS SUMMARY | 2024-08-11 13:58 | XMS_ITS | Encounter Summary ---
Author Organization [employer] Address [address] [facility] [address] 7t [place] [address] Care Team Providers Care Bead Maker Name Role Phone Nicky Thibodeaux MD Primary Care Provider +1- [phone] Wu Manzo MD Unavailable Feroz Ascencio MD Unavailable Reason for Visit * Reason Comments Med Refill Encounter Details Date Type Department Care Team (Late st Contact Info) Description 05/19/2023 Refill [facility]INE 230 [place] [address] Nicky Thibodeaux MD 230 [place], [place] [phone] Asthma, unspecified asthma severity, unspecified whether complicated, [...] 09/14/2024 11:30 AM EDT Telemedicine [facility] MED[facility]INE 230 [place] [address] Nicky Thibodeaux MD [address] [place] [address] documented as of this encounter Visit Diagnoses Diagnosis Asthma, unspecified asthma severity, unspecified whether complicated, unspecified whether persistent documented in this encounter Additional Health Concerns Assessment Noted Time PHQ-9 Depression Total Score: 22 023 2:09 PM EDT documented as of this encounter Care Teams Bead Maker Relationship Specialty Start Date End Date Nicky Thibodeaux MD [address] [place] [address] PCP - General Family Medicine 04/20/18 Wu Manzo MD [address] [place] [address] Pain Medicine 03/29/24 Feroz Ascencio MD [address] [place] [phone] Orthopaedic Surgery 06/15/24 Na Orozco Management ScientistRadiological Metallurgist 06/25/23 Latia Guardado PA-C [facility] 04/26/24 documented as of this encounter
--- OUTSIDE RECORDS SUMMARY | 2024-08-11 13:58 | XMS_ITS | Encounter Summary ---
Author Organization [employer] Address [address] [facility] [address] 7t [place] [address] Care Team Providers Care Roofing Foreman Name Role Phone Nicky Thibodeaux MD Primary Care Provider +1- [phone] Wu Manzo MD Unavailable Feroz Ascencio MD Unavailable [phone] Encounter Details Date Type Department Care Team ([facility] st Contact Info) Description 2023 Orders Only [facility] 230 [place], [place] [phone] Nicky Thibodeaux MD 230 [place], [place] [phone] Social History Tobacco Use Types Packs/Day Years [...] Info) Description 09/14/2024 11:30 AM EDT Telemedicine [facility] [address] [place] [address] Nicky Thibodeaux MD [address] [place] [address] documented as of this encounter Visit Diagnoses Not on filedocumented in this encounter Additional Health Concerns Assessment Noted Time PHQ-9 Depression Total Score: 22 023 2:09 PM EDT documented as of this encounter Care Teams Roofing Foreman Relationship Specialty Start Date End Date Nicky Thibodeaux MD [address] [place] [address] PCP - General Family Medicine 04/20/18 Wu Manzo MD [address] [place] [address] Pain Medicine 03/29/24 Feroz Ascencio MD [address] [place] [phone] Orthopaedic Surgery 06/15/24 Na Orozco Steam TenderUltrasound Supervisor 06/25/23 Latia Guardado PA-C [facility] 04/26/24 documented as of this encounter
--- OUTSIDE RECORDS SUMMARY | 2024-08-11 13:58 | XMS_ITS | Encounter Summary ---
Author Organization [employer] Address 75 [facility] 7t [place] [address] Care Team Providers Care Roll Mechanic Name Role Phone Nicky Thibodeaux MD Primary Care Provider +1- [phone] Wu Manzo MD Unavailable Feroz Ascencio MD Unavailable [phone] Reason for Visit * Reason Comments Med Refill Encounter Details Date Type Department Care Team ([facility] Contact Info) Description 08/26/2022 Refill [facility] [address] [place] [address] Nicky Thibodeaux MD 230 [place] [address] Pain Social History Tobacco Use Types Packs/Day [...] Upcoming Encounters Date Type Department Care Team ([facility] Contact Info) Description 09/14/2024 11:30 AM EDT Telemedicine [facility] MEDICINE 230 [place] [address] Nicky Thibodeaux MD 230 [place] [address] documented as of this encounter Visit Diagnoses Diagnosis Pain Generalized pain documented in this encounter Additional Health Concerns Assessment Noted Time PHQ-9 Depression Total Score: 22 023 2:09 PM EDT documented as of this encounter Care Teams Roll Mechanic Relationship Specialty Start Date End Date Nicky Thibodeaux MD 230 [place] [address] PCP - General Family Medicine 04/20/18 Wu Manzo MD [address] [place] [address] Drive [address] [place] [address] Pain Medicine 03/29/24 Feroz Ascencio MD [address] [place] [phone] Orthopaedic Surgery 06/15/24 Na Orozco Front End Application DeveloperBundle Tier And Labeler 06/25/23 TREASURE [facility] 04/26/24 documented as of this encounter
--- OUTSIDE RECORDS SUMMARY | 2024-08-11 13:59 | XMS_ITS | Encounter Summary ---
Author Organization [employer] Address [address] [place] [address] 7t [place] [address] Care Team Providers Care Occupational Therapy Assistant Name Role Phone Nicky Thibodeaux MD Primary Care Provider +1- [phone] Wu Manzo MD Unavailable Feroz Ascencio MD Unavailable [phone] Encounter Details Date Type Department Care Team (Latest Contact Info) Description 04/05/2021 Abstract [facility] CONVERSION[facility] Dental, Provider, DDS Social History Tobacco [...] 09/14/2024 11:30 AM EDT Telemedicine [facility] MEDICINE 230 [place] [address] Nicky Thibodeaux MD 230 [place] [address] documented as of this encounter Visit Diagnoses Not on filedocumented in this encounter Care Teams Occupational Therapy Assistant Relationship Specialty Start Date End Date Nicky Thibodeaux MD 230 [place], [place] [phone] PCP - General Family Medicine 04/20/18 Wu Manzo MD [address] [place] [address] Pain Medicine 03/29/24 Feroz Ascencio MD [address] [place] [phone] Orthopaedic Surgery 06/15/24 Na Orozco Liquified Natural Gas SpecialistBeauty Operator 06/25/23 TREASURE [facility] 04/26/24 documented as of this encounter
--- OUTSIDE RECORDS SUMMARY | 2024-08-11 13:59 | XMS_ITS | Encounter Summary ---
Author Organization [employer] Address 75 [facility] 7t [place] [address] Care Team Providers Care Cap Lining Machine Operator Name Role Phone Nicky Thibodeaux MD Primary Care Provider +1- [phone] Wu Manzo MD Unavailable Feroz Ascencio MD Unavailable [phone] Reason for Visit * Reason Onset Date Comments Medication Question 12/11/2022 Encounter Details Date Type Department Care Team (Late st Contact Info) Description 12/11/2022 Telephone [facility] MEDICINE 230 [place] [address] Chelsi Canseco ANP [address] [place] [address] Medication Question Social History Tobacco Use Types [...] EDT Telemedicine [facility] MEDICINE [address] [place] [address] Nicky Thibodeaux MD [address] [place] [address] documented as of this encounter Visit Diagnoses Diagnosis Essential (primary) hypertension Unspecified essential hypertension documented in this encounter Additional Health Concerns Assessment Noted Time PHQ-9 Depression Total Score: 22 023 2:09 PM EDT documented as of this encounter Care Teams Cap Lining Machine Operator Relationship Specialty Start Date End Date Nicky Thibodeaux MD [address] [place] [address] PCP - General Family Medicine 04/20/18 Wu Manzo MD [address] [place] [address] Drive [address] [place] [address] Pain Medicine 03/29/24 Feroz Ascencio MD [address] [place] [phone] Orthopaedic Surgery 06/15/24 Na Orozco Traffic Control SignalerClamp Truck Driver 06/25/23 Latia Guardado PA-C [facility] 04/26/24 documented as of this encounter
--- OUTSIDE RECORDS SUMMARY | 2024-08-11 13:59 | XMS_ITS | Clinical Summary ---
Author Organization [employer] Address [address] [place] [address] 7t [place] [address] Care Team Providers Care Side Framer Name Role Phone Nicky Thibodeaux MD Primary Care Provider [phone] Wu Manzo MD Unavailable Feroz Ascencio MD Unavailable [phone] Allergies Active Allergy Reactions Criticality Noted [...] with anxiety 50 mg. Active HYDROcodone-aceta minophen (Thor) 5-325 MG tabletIndications :Chronic low back pain, [...] (BMI) of 35.0 to 35.9 in adult ([facility]) Inject 0.5 mL (5 mg) under the [...] due after 03/14/25 -eye care facilitated by [facility] -dental home is [facility] -luana care proxy paperwork completed by to the patient 07/17/23 Assessment & Plan (03/14/2024 11:23 AM EST): -next physical exam due after 03/14/25 -eye care facilitated by [facility] -dental home is [facility] swapna care proxy paperwork completed by to the patient 07/17/23 Assessment & Plan (11/19/2023 11:08 AM EDT): -next physical exam due after 12/11/23 -eye care facilitated by [facility] -dental home is [facility] proxy paperwork completed by to the patient 07/17/23 Assessment & Plan (07/17/2023 10:10 AM EDT): -next physical exam due after 12/11/23 -eye care facilitated by [facility] -dental home is [facility] proxy paperwork completed by the patient 07/17/23 [...] the MRI image on the disc from [facility] where she had MRI performed. I also requested her to read brochures about [facility]. Assessment & Plan (07/17/2023 10:03 AM EDT): Her pain is not controlled. Dillon asked her to reach out to her original prescriber for Vicodin at [facility]. She is 7 weeks post-op sugery and is weaning her percocet's. Dillon explained since she is on Ambien, gabapentin, and benzodiazapine I would not be able to safely prescribe the medications through our program. Assessment & Plan (12/15/2022 9:38 AM EDT): Her pain is not controlled. Dillon asked her to reach out to her original prescriber for Vicodin at [facility]. She is 7 weeks post-op sugery and is weaning her percocet's. Dillon explained since she is on Ambien, gabapentin, and benzodiazapine I would not be able to safely prescribe the medications through our program. Assessment & Plan (09/03/2022 12:12 PM EDT): Her pain is not controlled. Dillon asked her to reach out to her original prescriber for Vicodin at [facility]. She is 7 weeks post-op [...] jail. Chronic low back pain 07/23/2022 Overview (08/11/2024): -s/p surgeryL4-L5 fusion for spondylolisthesis 07/10/[address] Tania Ecsamilla -thoracic x rays 01/29/23 demonstrate dextroscolosis, disc space narrowing at T6-T7, mild degenerative changes -lumbar MRI 12/10/22 demonstrates transitional lumbosacra anatomy with sacralized L5, multilevel disc bulge, facet arthropathy, LF thickening; L1-L2 mild left NFS; L2-L3 mild central stenosis, interbody device -Pt continues to report severe pain. She is getting Vicodin from [facility]. She requests opiate medications from me. We [...] therapy, multiple injections, and awaiting TENs unit. -[facility] prescribing hydrocodone/APA 5/325 to support instrumented activities of daily living. Note from 11/26/23 reviewed. - referred to follow up with Pain management. Pain pump is being advised 03/14/24 -note from pain management 08/11/24 diagnostic bilateral sacroiliac joint injection. She reported only 1 hour of more or less pain relief postoperatively this is not significant pain relief to consider sacroiliac joint as a major pain generators. We discussed the possibility of evaluating this patient's pain further. She has a history postlaminectomy syndrome. She has significant hardware at [...] the MRI image on the disc from [facility] where she had MRI performed. I also requested her to read brochures about [facility] and [facility]. Assessment & Plan (03/14/2024 11:31 AM EST): [...] severe pain. She is getting Vicodin from [facility]. She requests opiate medications from [...] pain. She sees a therapist and psychiatrist. -[facility] prescribing hydrocodone/APA to support instrumented activities of daily living. Note from 11/26/23 reviewed. -I will discuss with our pain management providers for any recommendations - Referred to follow up with Pain management. Pain pump is being advised 03/14/24 Assessment & Plan (11/19/2023 11:10 AM EDT): -s/p surgery with Dr. Tania Escamilla 06/2022 -Pt continues to report severe pain. She is getting Vicodin from [facility]. She requests opiate medications from [...] -Referral placed to Gynecology, Dr. Aaron 07/17/23 -[facility] OBGYN called 09/23/23 stating [...] -Referral placed to Gynecology, Dr. Aaron 07/17/23 -[facility] OBGYN called 09/23/23 stating [...] -Referral placed to Gynecology, Dr. Aaron 07/17/23 -[facility] OBGYN called 09/23/23 stating [...] left MARISELA 01/29/[address] Neal in [place] -s/p bilateral GT bursa injection under fluoroscopic guidance 06/13/24 with moderate reduction of pain in bilateral lateral hips -seen by ortho at [facility] 07/21/24 Hip [...] Type Department Care Team Description 08/09/2024 Refill [facility] [address] [place] [address] Nicky Thibodeaux MD Pain 07/17/2024 Refill [facility] [address] [place] [address] Nicky Thibodeaux MD Pain 07/01/2024 Population Health Risk Score [facility] (C3) Department [address] [place] [phone] Provider, Population Health Generic 06/30/2024 Refill [facility] [address] [place] [address] Nicky Thibodeaux MD Vitamin D deficiency; Chronic migraine without aura without status migrainosus, not intractable 06/27/2024 [place] [address] Nicky Thibodeaux MD Pain 06/22/2024 [place] [address] Nicky Thibodeaux MD 06/15/2024 [place]ill [place] [address] Nicky Thibodeaux MD Asthma, unspecified asthma severity, unspecified whether complicated, unspecified whether persistent 06/09/2024 Telephone [facility] [place] [address] Nicky Thibodeaux MD Medication Question 06/07/2024 2:30 PM EST Clinical Support [facility] [place] [address] America Robertson, RN Visit for wound care 06/07/2024 Travel 05/30/2024 Telephone [facility] [place] [address] Nicky Thibodeaux MD PT1 05/30/2024 Telephone [facility] [place] [address] Nicky Thibodeaux MD ER Follow-up 05/27/2024 Orders Only [facility] [place] [address] Nicky Thibodeaux MD Primary insomnia (Primary Dx); Chronic low back pain, unspecified back pain laterality, unspecified whether sciatica present; Anxiety; Dyslipidemia; Depression with anxiety; Constipation, unspecified constipation type; Primary hypertension; Gastroesophageal reflux disease, unspecified whether esophagitis present; Class 2 severe obesity due to excess calories with serious comorbidity and body mass index (BMI) of 35.0 to 35.9 in adult ([facility]) 05/26/2024 Refill [facility] [address] [place] [address] Nicky Thibodeaux MD Pain 05/23/2024 Telephone [facility] [address] [place], [place] [phone] Nicky Thibodeaux MD Medication Question 05/16/2024 Refill [facility] [address] [place], [place] [phone] Nicky Thibodeaux MD Osteoarthritis of hip, unspecified [...] Info) Description 09/14/2024 11:30 AM EDT Telemedicine [facility] [address] [place] [address] Nicky Thibodeaux MD [address] [place] [address] Health Maintenance Due Date Last Done Comments [...] EST Narrative 05/28/2024 1:13 AM EST ? [facility] [place] [facility] ?[address] ?[place] [address] ?XRay Report ? Signed ? Patient: Couture,Darcy F ?MR#: [id number] ?? [id number] ? : 1965 ?Acct:[id number] ? Age/Sex: 58 / F ?ADM Date: 05/28/24 ? Loc: HO.ED ? Attending Dr: ? Ordering Physician: Parish Zuñiga ?? Date of Service: 05/28/24 ?? Procedure(s): XR wrist LT min 3V ?? Accession Number(s): [id number] ? cc: Nicky Thibodeaux MD; Parish Zuñiga [...] DD/ 0111 ? TD/TT: 05/28/24 0111 ? Brake Lining Curer: ? Procedure Note Marcia Aguilar - 05/28/2024 [place] [address] XRay Report Signed Patient: Darcy Medina R#: [id number] : 1965Acct:[id number] Age/Sex: 58 / FADM Date: 05/28/24 Loc: HO.ED Attending Dr: Ordering Physician: Parish Zuñiga Date of Service: 05/28/24 Procedure(s): XR wrist LT min 3V Accession Number(s): [id number] cc: Nicky Thibodeaux MD; Parish Zuñiga CLINICAL [...] in OV> 05/28/24111 DD/ 0 TD/TT: 05/28/24110 Brake Lining Curer: [facility] External Provider IMG XR PROCEDURES Edited Result - Final * BI Mammogram Screening Tomosynthesis Bilateral (08/11/2023 1:05 PM EDT) Anatomical Region Laterality Modality Breast Bilateral Mammography 08/11/2023 1:05 PM EDT Narrative 08/22/2023 7:23 AM EDT ? [facility] ? [address] ?[place] [address] ? Mammography Report ? Signed ? Patient: Carol,Darcy F ?MR#: [id number] ?? [id number] ? : 1965 ?Acct:[id number] ? Age/Sex: 58 / F ?ADM Date: 08/11/23 ? Loc: HO.MAMMO ? Attending Dr: Nicky Thibodeaux MD ? Ordering Physician: Nicky Thibodeaux MD ?Results: 2B ?? enign Findings ? Date of Service: 08/11/23 ?Follow Up: 1 Year From Orig ?? inal Mammogram ? Procedure(s): MM tomosynthesis screening BI ?? Accession Number(s): [id number] ? cc: Nicky Thibodeaux MD ? EXAMINATION: [...] Elena Guillen MD in OV> ? 08/22/23 0719 ? DD/ 1305 ? TD/TT: ? Brake Lining Curer: ? Procedure Note Jeff, Image - 08/22/2023 [facility] [address] [place], [place] [address] Mammography Report Signed Patient: Darcy Medina R#: [id number] : 1965Acct:[id number] Age/Sex: 58 / FADM Date: 08/11/23 Loc: HO.MAMMO Attending Dr: Nicky Thibodeaux MD Ordering Physician: Catron,Nicky MDResults: 2B enign Findings Date of Service: 08/11/23Follow Up: 1 Year From Orig ina Mammogram Procedure(s): MM tomosynthesis screening BI Accession Number(s): [id number] cc: Nicky Thibodeaux MD EXAMINATION: MM SCREENING [...] in OV> 08/22/23 0719 DD/ 1305 TD/TT: Brake Lining Curer: us Nicky Thibodeaux MD IMG BI PROCEDURES Edited R esult - Final * (ABNORMAL) Lipid Panel, Standard (07/17/2023 10:24 AM EDT) Triglycerides 168(H) <150 mg/dL [facility] Comment:Desirable Triglyceri de: less than 150 mg/dLBorderline High Triglyceride 150-199 mg/dLHigh Triglyceride: 200-499 mg/dLVery High Triglyceride: greater than or equal to 5OO mg/dL Cholesterol 219(H) <200 mg/dL [facility] Comment:Desirable Cholestero l: less than 200 mg/dLBorderline High Cholesterol: 200-239 mg/dLHigh Cholesterol: greater than 239 mg/dL LDL Cholesterol Calculated 137(H) <100 mg/dL [facility] Comment:Desirable LDL: less than 100 mg/dLNear Optimal/Above Optimal LDL: 110- 129 mg/dLBorderline High LDL: 130-159 mg/dLHigh LDL: 160-189 mg/dLVery High LDL: greater than or equal to 190 mg/dL HDL Cholesterol 49 >40 mg/dL [facility] Comment:Desirable HDL: great er than 40 mg/dL Note: This HDL assay may give artificially low results in patients with liver disease. Blood Venous blood specimen / Unknown 07/17/2023 10:24 AM EDT 07/17/2023 11:19 AM EDT Nicky Thibodeaux MD LAB BLOOD ORDERABLES Final Result [facility] [address] [place] [phone] * Hepatitis C Antibody with Reflex to HCV, RNA, Quantitative, Real-Time PCR (09/03/2022 11:58 AM EDT) Hepatitis C Antibody NON-REACT DILLON NON-REACT DILLON [facility] Index 0.02 <1.00 [facility] Comment: HCV antibody was non-reactive. There is no laboratory evidence of HCV infection. In most cases, no further action is required. However, if recent HCV exposure is suspected, a test for HCV RNA (test code 56889) is suggested. For additional information please refer to http://education.LaunchSide/faq/QCA26a5 (This link is being provided for informational/ educational purposes only.) Blood Venous blood specimen / Unknown 09/03/2022 11:58 AM EDT 09/03/2022 11:58 AM EDT Narrative [facility] - 09/07/2022 11:33 PM EDT FASTING:YES FASTING: YES Nicky Thibodeaux MD LAB BLOOD ORDERABLES Final Result Performing Organization Address City/[facility]/ZIP Co de Phone Number [facility] [address] [place] [address], [place] [address] [facility] [address] [place] [phone] * HIV-1/2 Antigen and Antibodies, Fourth Generation, with Reflexes (09/03/2022 11:58 AM EDT) HIV Antigen/Antibody, 4th Generation NON-REAC TIVE NON-REAC TIVE [facility] Comment: HIV-1 antigen and HIV-1/HIV-2 antibodies [...] ?? For additional information please refer to http://education.LaunchSide/faq/HUL889 (This link is being provided for informational/ educational purposes only.) The performance of this assay has not been clinically validated in patients less than 2 years old. Blood Venous blood specimen / Unknown 09/03/2022 11:58 AM EDT 09/03/2022 11:58 AM EDT Narrative [facility] - 09/07/2022 11:33 PM EDT FASTING:YES FASTING: YES Nicky Thibodeaux MD LAB BLOOD ORDERABLES Final Result [facility] [address], [place] [address] [facility] [address] [place] [phone] * (ABNORMAL) THINPREP TIS PAP AND HPV mRNA E6/E7, CT/NG, TRICH (08/02/2021 11:49 AM EDT) Chlamydia trachomatis RNA, TMA, Urogenital NOT DETECTED NOT DETECTED [facility] Clinical Information: None given [facility] COMMENT SEE COMMENT [facility] Comment: The analytical performance characteristics of this assay, when used to test SurePath(TM) specimens have been determined by [facility]. The modifications have not been cleared or approved by the FDA. This assay has been validated pursuant to the CLIA regulations and is used for clinical purposes. ?? For additional information, please refer to https://[employer].LaunchSide/faq/FVA065 (This link is being provided for information/ [...] has been evaluated with computer assisted technology. [employer] Plaster Patternmaker: SEE COMMENT [facility] Comment: DCR, CT(ASCP) CT screening location: [address] ??[address] HPV nRNA E6/E7 Detected(A) Not Detected [facility] Comment: Methodology: [facility] Sales-Mediated Amplification This assay detects E6/E7 viral messenger RNA (mRNA) from 14 high-risk HPV types (16,18,31,33,35,39,45,51,52,56,58,59,66,68). ? The analytical performance characteristics of this assay have been determined by [facility]. The modifications have not been cleared or approved by the FDA. This assay has been validated pursuant to the CLIA regulations and is used for clinical purposes. ?? For additional information, please refer to http://[employer].LaunchSide/faq/TWG888b0 (This link if provided for information/ educational purposes only.) Interpretation/Res ult: SEE COMMENT [facility] Comment: Negative for intraepithelial lesion or malignancy. Atrophic pattern; predominantly parabasal cells LMP: NONE GIVEN [facility] Neisseria gonorrhoeae RNA, TMA, Urogenital NOT DETECTED NOT DETECTED [facility] Prev. BX: NONE [facility]IVEN [facility] Prev. PAP: NONE GIVEN [facility] Review Plaster Patternmaker: SEE COMMENT [facility] Comment: JXM, CT(ASCP) CT screening location: [address] ??[address] SOURCE: None given [facility] Statement Of Adequacy: SATISFACTORY FOR EVALUATION [facility] Trichomonas vaginalis, QL, TMA, PAP Vial NOT DETECTED NOT DETECTED [facility] Comment: The analytical performance characteristics of this assay have been determined by [facility]. The modifications have not been cleared or approved by the FDA. This assay has been validated pursuant to the CLIA regulations and is used for clinical purposes. ?? For additional information, please refer to http://education.LaunchSide/ faq/Trichomonastma (This link is being provided for information/ educational purposes only.) ?? 08/02/2021 11:4 9 AM EDT Nicky Thibodeaux MD LAB PATHOLOGY ORDERABLES F inal Result [facility] [address] [place] [address], * Pap Smear (08/02/2021 12:00 AM EDT) Swab Nicky Thibodeaux MD LAB CYTOLOGY ORDERABLES Fi nal Result [facility] [address] [place] [phone] * Colonoscopy (12/11/2015) Colonoscopy normal with Dr. Delgado Historical Provider HEALTH MAINTENANCE Final Result from Last 3 Months or Most Recently Relevant to Health Maintenance Insurance [facility] C3 DENTAL-[facility] MEDICAID STAND ADULT Advance Directives Documents on File Type Date Recorded Patient Microsoft Bi Developer Expl anation Advance Directives and Living Will 07/17/2023 Health Care Proxy 07/17/23 Care Teams Side Framer Relationship Specialty Start Date End Date Morelia, MD Nicky [address] [place] [phone] PCP - General Family Medicine 04/20/18 Wu Manzo MD [address] [place] [address] [address] [place] [address] Pain Medicine 03/29/24 Feroz Ascencio MD [address] [place] [phone] Orthopaedic Surgery 06/15/24 Na Orozco Needle Punch Machine Operator HelperEquipment Sales Specialist 06/25/23 Latia Guardado PA-C [facility] 04/26/24
--- OUTSIDE RECORDS SUMMARY | 2024-08-11 13:59 | XMS_ITS | Encounter Summary ---
Author Organization [employer] Address [address] [place] [address] 7t [place] [address] Care Team Providers Care Cream Separator Operator Name Role Phone Nicky Thibodeaux MD Primary Care Provider [phone] Wu Manzo MD Unavailable Feroz Ascencio MD Unavailable [phone] Reason for Visit * Reason Comments Med Refill Encounter Details Date Type Department Care Team (Late Contact Info) Description 12/11/2022 Refill [facility] [address] [place] [address] [phone] Nicky Thibodeaux MD [address] [place] [address] [phone] Social History Tobacco Use Types Packs/Day Years [...] 11:30 AM EDT Telemedicine [facility] [address] [place] [address] [phone] Nicky Thibodeaux MD [address] [place], [place] [phone] documented as of this encounter Visit Diagnoses Not on filedocumented in this encounter Additional Health Concerns Assessment Noted Time PHQ-9 Depression Total Score: 22 023 2:09 PM EDT documented as of this encounter Care Teams Cream Separator Operator Relationship Specialty Start Date End Date Nicky Thibodeaux MD [address] [place] [phone] PCP - General Family Medicine 04/20/18 Wu Manzo MD [address] [place] [address] Drive [address] [place] [address] Pain Medicine 03/29/24 Feroz Ascencio MD [address] [place] [phone] Orthopaedic Surgery 06/15/24 Na Orozco Corporate Law AssistantFlagstone Layer 06/25/23 TREASURE [facility] 04/26/24 documented as of this encounter
--- OUTSIDE RECORDS SUMMARY | 2024-08-11 13:59 | XMS_ITS | Encounter Summary ---
Author Organization [employer] Address [address]t [place] [address] Care Team Providers Care Public Health Training Assistant Name Role Phone Nicky Thibodeaux MD Primary Care Provider [phone] Wu Manzo MD Unavailable Feroz Ascencio MD Unavailable [phone] Reason for Visit * Reason Onset Date Comments Nurse Triage 05/11/2024 Encounter Details Date Type Department Care Team (Late st Contact Info) Description 05/11/2024 Telephone [facility] [address] [place], [place] [phone] Nicky Thibodeaux MD [address] [place], [place] [phone] Nurse Triage Social History Tobacco Use Types [...] or Thursday.Pt wants appt on Thursday when RECRUITMENT ADVERTISING MANAGER is available to bring pt. Reviewed [facility] operating hours and that wait times vary. Unable to book sick on site > 48 hours. Pt advised can call back on Thursday for Thursday scheduled. Reviewed home care advise, ER precautions and reasons to call back. Protocol Used: Dizziness (Adult) Protocol-Based Disposition: Discuss with PCP and Callback by Nurse Today Sent to PCP and [place] team Primary care nurses for follow up [...] Description 09/14/2024 11:30 AM EDT Telemedicine [facility] [address] [place] [address] Nicky Thibodeaux MD [address] [place] [address] documented as of this encounter Visit Diagnoses Not on filedocumented in this encounter Additional Health Concerns Assessment Noted Time PHQ-9 Depression Total Score: 14 024 10:51 AM EST documented as of this encounter Care Teams Public Health Training Assistant Relationship Specialty Start Date End Date Nicky Thibodeaux MD [address] [place] [address] PCP - General Family Medicine 04/20/18 Wu Manzo MD [address] [place] [address] Pain Medicine 03/29/24 Feroz Ascencio MD [address] [place] [phone] Orthopaedic Surgery 06/15/24 Na Orozco Motor Vehicle Parts InterpreterHealth Careers Instructor 06/25/23 Latia Guardado PA-C [facility] 04/26/24 documented as of this encounter
== END 2024-08-11 10:59 | disposition home or self-care (01) ==
LOC: HO.XRAY 10:58
PROVIDERS: PCP Family Medicine; Visit Provider Nurse Practitioner Women's Health
DX: M54.16 Radiculopathy, lumbar region (principal); M47.814 Spondylosis without myelopathy or radiculopathy, thoracic region; M46.1 Sacroiliitis, not elsewhere classified; M53.3 Sacrococcygeal disorders, not elsewhere classified; G89.4 Chronic pain syndrome; M96.1 Postlaminectomy syndrome, not elsewhere classified; F40.240 Claustrophobia
CPT/HCPCS: 72072; 72100; 99212

== ENCOUNTER → 2024-08-11 12:33 | Outpatient (BNV) | payer MEDICAID, SELFPAY | PROVIDERS: PCP Family Medicine; Visit Provider Radiology Diagnostic Radiology | DX: M54.6 Pain in thoracic spine (principal); M54.50 Low back pain, unspecified | CPT/HCPCS: 72072; 72100 ==

== ENCOUNTER 2024-09-20 06:19 | Outpatient (REF) | payer MEDICAID, SELFPAY ==
--- NOTE | ~2024-09-20 | FL_ITS ---
EXAMINATION: FL GUIDANCE ONLY HISTORY: M53.3 - Sacrococcygeal disorders, not elsewhere classified COMPARISON: None available. TECHNIQUE: Fluoroscopy time: 0.2 minutes. Cumulative Dose: 4.05 mGy. DAP: 0.0704 mGym2 Images: 4. FINDINGS: Fluoroscopic spot films of the pelvis demonstrates needles and contrast material in the regions of the bilateral sacroiliac joints. FL/FL guidance in treatment room IMPRESSION: Fluoroscopy during procedure. Please see procedure report for additional information. Electronically signed by: Calvin Grimes MD 09/20/2024 03:44 PM EDT
== END 2024-09-20 06:20 | disposition home or self-care (01) ==
LOC: CF 06:19
PROVIDERS: Visit Provider Anesthesiology
DX: M53.3 Sacrococcygeal disorders, not elsewhere classified (principal)
CPT/HCPCS: 27096; J2003; J2795; Q9967

== ENCOUNTER 2024-09-20 13:48 | Outpatient (AMB) | payer MEDICAID, SELFPAY ==
[2024-09-20 13:58] VITALS: BP 161/87; PULSE 85; RESP 20; O2SAT 98
--- NOTE | 2024-09-20 13:58 | A.OFFVIS_ITS ---
Vital Signs 09/20/24 13:58 09/20/24 14:27 Weight 190 lb BP 161/87 H 172/92 H Blood Pressure Location Rt brachial Rt brachial Position Sitting Sitting Respiration 20 18 Pulse 85 77 Pulse Source Pulse Oximeter Pulse Oximeter Pulse Oximetry (%) 98 97 Oxygen Delivery Method Room Air Room Air Intake Visit Reasons: BILATERAL DIAGNOSTIC SIJ INJECTIONS Concrete Pavement Installer Required: No Allergies aspirin [ASPIRIN] Allergy (Mild, Verified 09/20/24 13:59) GI UPSET ibuprofen [IBUPROFEN] Allergy (Mild, Verified 09/20/24 13:59) GI UPSET PFSH Medical History Poor dentition Neck pain Low back pain Anxiety and depression History of panic attacks Chronic headaches Uses roller walker Nicotine dependence, cigarettes, uncomplicated (~1978) Hyperlipidemia History of TIA (transient ischemic attack) (~2019) Personal history of nicotine dependence (~1978) COPD (chronic obstructive pulmonary disease) Osteoarthritis of left hip Hypertension Surgical History History of appendectomy (~02/13/02) Status post total hip replacement, right (~04/26/13) Social History Household Members: None Housing: Apartment Are you a primary home health care physician to a significant other at home: No Do you presently have visiting nurse or other home services: No Comment: patient refused bed alarm Patient Tobacco Use Status: Current everyday Tobacco user Tobacco use type: Cigarette Cigarette Packs Per Day: 1 Cigarettes Per Day: 20.0 Years Smoked: 42 Second Hand Smoke Exposure: No Current occupational status: unemployed Current occupation: Right Handed Female Reproductive History Menstrual Age of Menarche: 13 Physical Exam Vital Signs: Last Vital Signs Pulse 77 09/20/24 14:27 Resp 18 09/20/24 14:27 BP 172/92 H 09/20/24 14:27 Pulse Ox 97 09/20/24 14:27 Oxygen Delivery Method Room Air 09/20/24 14:27 Assessment & Plan Assessment & Plan (1) Sacroiliac joint dysfunction of both sides: Code(s): M53.3 - Sacrococcygeal disorders, not elsewhere classified Category: Medical (2) Sacroiliitis: Code(s): M46.1 - Sacroiliitis, not elsewhere classified Category: Medical Plan Bilateral diagnostic sacroiliac joint injection. Informed consent was thoroughly explained to the patient before the procedure.? The patient came to the operating room.? She was positioned prone on operating table with a pillow under her abdomen.? Time-out was performed delineating correct site and side of the procedure, nature of the injection, name and date of of the patient. The lower back and upper buttocks of the patient was prepped with ChloraPrep and draped with sterile utility towels.? C-arm was brought over the operating field the image of the right sacroiliac joint was demonstrated on the screen. Tilting machine contralateral to the left the anterior portion of sacroiliac joint was superimposed of the posterior portion of the sacroiliac joint. After that projection of the sacroiliac joint to the skin was injected with mixture of lidocaine 2 % and ropivacaine 0.5% to form a skin wheal. After that 22 gauge 3- 1/2 inch needle was inserted through the skin wheal and advanced to the sacroiliac joint. After that injection of the contrast was performed delineating intra-articular spread of the contrast. After that injection of the ropivacaine 0.5% 5 cc was performed into the joint. Upon completion of the right-sided injection injection of the left sacroiliac joint with performed in mirroring fashion. The needle was removed sterile Band-Aid was applied. Patient tolerated the procedure well. Orders: Orders FL guidance in treatment room Today M53.3 - Sacrococcygeal disorders, not elsewhere classified Coding Level of Care Code Procedure Only Diagnoses Sacroiliac joint dysfunction of both sides M53.3 Sacroiliitis M46.1
[2024-09-20 14:27] VITALS: BP 172/92; PULSE 77; RESP 18; O2SAT 97
--- OUTSIDE RECORDS SUMMARY | 2024-09-20 15:30 | XMS_ITS | Clinical Summary ---
Author Organization [facility] Address [address] [place] [address] Care Team Providers Care Technical Operator Name Role Phone Nicky Thibodeaux MD Primary Care Provider [phone]- [phone] Social History Tobacco Use Types Packs/Day Years [...] age to complete this topic Care Teams Technical Operator Relationship Specialty Start Date End Date Nicky Thibodeaux MD [address] [place] [phone] PCP - General Internal Medicine 12/21/13
== END 2024-09-20 14:35 | disposition home or self-care (01) ==
LOC: HO.PMCPRC 13:48
PROVIDERS: PCP Family Medicine; Visit Provider Anesthesiology
DX: M53.3 Sacrococcygeal disorders, not elsewhere classified (principal); M46.1 Sacroiliitis, not elsewhere classified
CPT/HCPCS: 27096

== ENCOUNTER 2024-09-30 14:39 | Outpatient (REF) | payer MEDICAID, SELFPAY ==
--- OUTSIDE RECORDS SUMMARY | 2024-09-30 14:42 | XMS_ITS | Encounter Summary ---
Author Organization [employer] Address [address] [facility] 7t [place] [address] Care Team Providers Care Photo Technologist Name Role Phone Nicky Thibodeaux MD Primary Care Provider [phone]- [phone] Wu Manzo MD Unavailable Feroz Ascencio MD Unavailable [phone] Reason for Visit * Reason Comments Med Refill Encounter Details Date Type Department Care Team (Late st Contact Info) Description 04/09/2023 Refill [facility] MEDICINE [address] [place] [address] Nicky Thibodeaux MD [address] [place] [address] Pain Social History Tobacco Use Types Packs/Day [...] documented as of this encounter Care Teams Photo Technologist Relationship Specialty Start Date End Date Nicky Thibodeaux MD [address] [place] [phone] PCP - General Family Medicine 04/20/18 Wu Manzo MD [address] [place] [address] Pain Medicine 03/29/24 Feroz Ascencio MD [address] [place] [phone] Orthopaedic Surgery 06/15/24 Rolanda Tirado Hand Spring FormerNew Patient Escort 06/25/23 [facility] 04/26/24 documented as of this encounter
== END 2024-09-30 14:40 | disposition home or self-care (01) ==
LOC: HO.MAMMO 14:39
PROVIDERS: PCP Family Medicine; Visit Provider Family Medicine
DX: Z12.31 Encounter for screening mammogram for malignant neoplasm of breast (principal)
CPT/HCPCS: 77063; 77067

== ENCOUNTER → 2024-09-30 15:00 | Outpatient (BNV) | payer MEDICAID, SELFPAY | PROVIDERS: PCP Family Medicine; Visit Provider Internal Medicine | DX: Z12.31 Encounter for screening mammogram for malignant neoplasm of breast (principal) | CPT/HCPCS: 77063; 77067 ==

== ENCOUNTER 2024-10-20 13:16 | Outpatient (AMB) | payer MEDICAID, SELFPAY ==
--- OUTSIDE RECORDS SUMMARY | 2024-10-20 13:23 | XMS_ITS | Clinical Summary ---
Author Organization [facility] Address [address] [place] [address] Care Team Providers Care Car Mechanic Helper Name Role Phone Nicky Thibodeaux MD Primary Care Provider [phone]- [phone] Social History Tobacco Use Types Packs/Day Years [...] age to complete this topic Care Teams Car Mechanic Helper Relationship Specialty Start Date End Date Nicky Thibodeaux MD [address] [place] [phone] PCP - General Internal Medicine 12/21/13
--- OUTSIDE RECORDS SUMMARY | 2024-10-20 13:23 | XMS_ITS | Encounter Summary ---
Author Organization [employer] Address [address] [facility] 7t [place] [address] Care Team Providers Care Top Cager Name Role Phone Nicky Thibodeaux MD Primary Care Provider [phone]- [phone] Wu Manzo MD Unavailable Feroz Ascencio MD Unavailable [phone] Reason for Visit * Reason Comments Med Refill Encounter Details Date Type Department Care Team (Late st Contact Info) Description 04/09/2023 Refill [facility] MEDICINE [address] [place] [address] Nicky Thibodeaux MD [address] [place] [address] Pain Social History Tobacco Use Types Packs/Day [...] documented as of this encounter Care Teams Top Cager Relationship Specialty Start Date End Date Nicky Thibodeaux MD [address] [place] [phone] PCP - General Family Medicine 04/20/18 Wu Manzo MD [address] [place] [phone] Pain Medicine 03/29/24 Feroz Ascencio MD [address] [place] [phone] Orthopaedic Surgery 06/15/24 Rolanda Tirado News CorrespondentClient Relationship Manager 06/25/23 [facility] 04/26/24 documented as of this encounter
--- NOTE | 2024-10-20 13:26 | MHC.OFFVIS ---
Vital Signs 10/20/24 13:27 Weight 184 lb BP 131/81 Blood Pressure Location Lt brachial Position Sitting Respiration 18 Pulse 88 Pulse Source Pulse Oximeter Pulse Oximetry (%) 100 Oxygen Delivery Method Room Air Intake Visit Reasons: BILATERAL DIAGNOSTIC SIJ INJECTIONS Allergies aspirin (ASPIRIN) Allergy (Mild, Verified 10/20/24 13:28) GI UPSET ibuprofen (IBUPROFEN) Allergy (Mild, Verified 10/20/24 13:28) GI UPSET HPI Comments Details: Loree is back in my office the results of diagnostic bilateral sacroiliac joint injection. She reported pain 9.5/10 before the injection. She also reported 0 pain immediately after the procedure 0 pain 1 hour after procedure and 3/10 pain for the 2nd, 3rd and 4th our after the procedure this is 100% improvement of the pain. 5 hours after the procedure her pain was 4/10 so still 70% improvement. 6 hours after the procedure her pain became 5/10. The pain reduction remain at this low level about 50% improvement for 10 days. She also reported improved mobility during this time and better activities of daily living. I offered the patient to perform therapeutic bilateral sacroiliac joint injection with steroids. Prior:multiple pain generators she reports consistent pain in bilateral shoulder posterior neck bilateral hips bilateral perm paramedian paraspinal areas pain in bilateral groins, pain with standing, pain with sitting down, she reports laying down her pain slightly better prolonged sitting and walking aggravate her pain. . She is using walker for ambulation. She had a surgery surgery with Dr. Myrick to help her pain. In the past she had bilateral total hip replacement to help her pain in the hip however she admits that pain is as painful as it was before hip replacement. She had multiple images available including x-ray of the lumbar spine on which L5-S1 fusion is demonstrated without significant pathological changes and with proper hardware position. She also had x-ray of the pelvis which demonstrated appropriate image of the pelvis with bilateral total hip replaced. She had injections long time ago in [facility] as well as with [facility]. In fact she is scheduled for some sort of the injection with [facility] again. This injection will be addressing pain in her neck. The nature of the injection is unknown to me. She is being prescribed by [facility] hydrocodone/acetaminophen 5/325. She is also prescribed cyclobenzaprine to control her pain and help her to sleep at night, she tried NSAIDs with minimal effect including diclofenac sodium. Her primary care physician recommended her to come to this office with the request of spinal cord stimulation. Patient is very leery about spinal cord stimulator and yet she is willing to discuss it with me. Her past medical history significant for headaches mini stroke 4 year ago history of fatigue dizziness and fainting history of anxiety bipolar depression COPD shortness of breath and osteoarthritis. Her past surgical history is significant for to bilateral hip replacements, as well as transforaminal fusion by Dr. Prabhakar. She smokes cigarettes 1 pack per day for 14 years she denies drinking alcohol drinks coffee but not soda and she denies recreational drugs. [facility] Medical History Poor dentition Neck pain Low back pain Anxiety and depression History of panic attacks Chronic headaches Uses roller walker Nicotine dependence, cigarettes, uncomplicated (~1978) Hyperlipidemia History of TIA (transient ischemic attack) (~2019) Personal history of nicotine dependence (~1978) COPD (chronic obstructive pulmonary disease) Osteoarthritis of left hip Hypertension Surgical History History of appendectomy (~02/13/02) Status post total hip replacement, right (~04/26/13) Social History Household Members: None Housing: Apartment Are you a primary direct care specialist to a significant other at home: No Do you presently have visiting nurse or other home services: No Comment: patient refused bed alarm Patient Tobacco Use Status: Current everyday Tobacco user Tobacco use type: Cigarette Cigarette Packs Per Day: 1 Cigarettes Per Day: 20.0 Years Smoked: 42 Second Hand Smoke Exposure: No Current occupational status: unemployed Current occupation: Right Handed Female Reproductive History Menstrual Age of Menarche: 13 Review of Systems Const All systems reviewed & are unremarkable except as noted in HPI and below ENT Reports Normal hearing present Neuro Reports Normal hearing present, Denies Abnormal speech present, Denies confusion and Denies Sensory deficit (Neuro) Psych Denies confusion Physical Exam Vital Signs: Last Vital Signs Pulse 88 10/20/24 13:27 Resp 18 10/20/24 13:27 BP 131/81 10/20/24 13:27 Pulse Ox 100 10/20/24 13:27 Oxygen Delivery Method Room Air 10/20/24 13:27 Const General: no acute distress; No confusion Nutritional Appearance: obese morbidly obese Orientation/consciousness: patient oriented x3 and No confusion Eyes General: appearance normal, both eyes and all related structures Pupils: Equal, round and reactive pupils present EOM: EOMs intact bilaterally Neck Neck: Yes full ROM Chest Chest palpation & inspection: normal inspection of the chest Resp Effort & Inspection: normal respiratory effort, able to speak in complete sentences, normal respiratory pattern, no audible wheezes and no cough Cardio Jugular venous distension: no JVD GI Inspection: Yes normal to inspection Back/Spine/Pelvis Other: Able to stand on bilateral tiptoes in bilateral heels without significant difficulty. Unable to flex herself forward or backwards because of severe pain. Attempt to perform Tiago test is demonstrating severe discomfort on lower back bilaterally. Pelvic distraction and pelvic compression tests causing mild discomfort in projection of the sacroiliac joints as well. Thigh thrust test and Stinchfield tests are also positive bilaterally. Valsalva maneuver is negative for pain increase. Fourteen finger test is positive bilaterally. Neuro General: patient oriented x3, gait normal and No confusion Cranial nerves: Yes CN's II-XII intact bilaterally, Yes Equal, round and reactive pupils present, Yes Normal hearing present and Yes Ability to bilaterally elevate shoulders present Speech: No Abnormal speech present Gait exam (Neuro): Normal gait present Motor exam (neuro): 5/5 motor strength present throughout Sensory Exam: No Sensory deficit (Neuro) Extrem General: No pedal edema Psych Speech and movement: Normal speech and movement present Affect: normal affect Attitude: cooperative Thought process: Normal thought process present Thought content: Normal thought content present Insight: Good insight present (Psych) Judgement: Good judgement present (Psych) Assessment & Plan Assessment & Plan (1) Sacroiliac joint dysfunction of both sides: Code(s): M53.3 - Sacrococcygeal disorders, not elsewhere classified Category: Medical (2) Sacroiliitis: Code(s): M46.1 - Sacroiliitis, not elsewhere classified Category: Medical (3) Postlaminectomy syndrome, lumbar: Code(s): M96.1 - Postlaminectomy syndrome, not elsewhere classified Category: Medical (4) Chronic pain syndrome: Code(s): G89.4 - Chronic pain syndrome Category: Medical Plan Loree is very pleasant 59 years old suffering from postlaminectomy syndrome. Dr. Prabhakar operated on this patient. Her pain remained at very high levels. We tried SCS and I DDD modalities on this patient. She has a all OUD and therefore we tried only non opioid medications. Last time she came for diagnostic bilateral SI joint injection and this resulted in very impressive pain reduction. I offered the patient to perform therapeutic bilateral sacroiliac joint injection. At this time unfortunately patient uses 2 offices of pain management somehow she receives steroid injections in [facility] in her neck and of the same time she receives injections for the lower back from us. Therefore this is very impractical and may lead to increase chances of side effects the steroid medications. Patient expressed understanding. She decided to transfer her care to us. I also recommended her to sign medical information release note and we will obtain all the injection she received from [facility] in the past. Coding Level of Care Code Est Pt Level 3 (86768) Diagnoses Sacroiliac joint dysfunction of both sides M53.3 Sacroiliitis M46.1 Postlaminectomy syndrome, lumbar M96.1 Chronic pain syndrome G89.4
[2024-10-20 13:27] VITALS: BP 131/81; PULSE 88; RESP 18; O2SAT 100
== END 2024-10-20 13:42 | disposition home or self-care (01) ==
LOC: HO.PMC 13:17
PROVIDERS: PCP Family Medicine; Visit Provider Anesthesiology
DX: M53.3 Sacrococcygeal disorders, not elsewhere classified (principal); M46.1 Sacroiliitis, not elsewhere classified; M96.1 Postlaminectomy syndrome, not elsewhere classified; G89.4 Chronic pain syndrome
CPT/HCPCS: 99213

== ENCOUNTER → 2024-10-20 13:16 | Outpatient (BNVA) | payer MEDICAID, SELFPAY | PROVIDERS: PCP Family Medicine; Visit Provider Anesthesiology | DX: M53.3 Sacrococcygeal disorders, not elsewhere classified (principal); M46.1 Sacroiliitis, not elsewhere classified; M96.1 Postlaminectomy syndrome, not elsewhere classified; G89.4 Chronic pain syndrome | CPT/HCPCS: 99212 ==

== ENCOUNTER 2024-12-13 06:11 | Outpatient (REF) | payer MEDICAID, SELFPAY ==
--- OUTSIDE RECORDS SUMMARY | 2024-12-13 06:16 | XMS_ITS | Encounter Summary ---
Author Organization [employer] Address [address] [facility] 7t [place] [address] Care Team Providers Care Range Management Specialist Name Role Phone SkagwayNicky mott MD Primary Care Provider [phone] Wu Manzo MD Unavailable Feroz Ascencio MD Unavailable [phone] Reason for Visit * Reason Comments Med Refill Encounter Details Date Type Department Care Team (Late st Contact Info) Description 2022 Refill [facility] [address] [place] [address] Krystin Frederick, GRACIELA Chronic migraine without aura without status migrainosus, [...] intractable documented in this encounter Care Teams Range Management Specialist Relationship Specialty Start Date End Date Nicky Thibodeaux MD [address] [place] [address] PCP - General Family Medicine 04/20/18 Wu Manzo MD [address] [place] [phone] Pain Medicine 03/29/24 Feroz Ascencio MD [address] [place] [phone] Orthopaedic Surgery 06/15/24 Rolanda Tirado Senior Research FellowCase Packer 06/25/23 [facility] 04/26/24 documented as of this encounter
--- OUTSIDE RECORDS SUMMARY | 2024-12-13 06:16 | XMS_ITS | Encounter Summary ---
Author Organization [employer] Address [address] [facility] 7t [place] [address] Care Team Providers Care Junior Recruiter Name Role Phone Nicky Thibodeaux MD Primary Care Provider [phone] Wu Manzo MD Unavailable Feroz Ascencio MD Unavailable [phone] Reason for Visit * Reason Onset Date Comments Durable Medical Equipment 08/07/2022 Encounter Details Date Type Department Care Team (Late st Contact Info) Description 08/07/2022 Telephone [facility] MEDICINE [address] [place] [address] Nicky Thibodeaux MD [address] [place] [address] Durable Medical Equipment Social History Tobacco Use [...] - 08/14/2022 9:23 AM EDT Tc from [facility] requesting status on a form send over for [facility] grab bar. Please contact Renzo at [phone] * Telephone Encounter - Wellington Smith - 08/07/2022 9:57 AM EDT Tc from [facility] with [facility] [place] requesting a status on a form sent over for a [facility] Grab bar. Please contact renzo at [phone] documented in this encounter Plan of Treatment Not on file documented as of this encounter Visit Diagnoses Not on filedocumented in this encounter Additional Health Concerns Assessment Noted Time PHQ-9 Depression Total Score: 22 023 2:09 PM EDT documented as of this encounter Care Teams Junior Recruiter Relationship Specialty Start Date End Date Nicky Thibodeaux MD [address] [place] [address] PCP - General Family Medicine 04/20/18 Wu Manzo MD [address] [place] [phone] Pain Medicine 03/29/24 Feroz Ascencio MD [address] [place] [phone] Orthopaedic Surgery 06/15/24 Rolanda Tirado Mold MoverLead Mechanic 06/25/23 Latia Guardado PA-C [facility] 04/26/24 documented as of this encounter
--- OUTSIDE RECORDS SUMMARY | 2024-12-13 06:16 | XMS_ITS | Encounter Summary ---
Author Organization [employer] Address [address] [address] 7t [place] [address] Care Team Providers Care Hose Tubing Backer Name Role Phone Nicky Thibodeaux MD Primary Care Provider [phone]- [phone] Wu Manzo MD Unavailable Feroz Ascencio MD Unavailable [phone] Reason for Visit * Reason Comments Med Refill Encounter Details Date Type Department Care Team (Late st Contact Info) Description 08/26/2022 Refill [facility] [address] [place] [address] Nicky Thibodeaux MD [address] [place] [address] Pain Social History Tobacco Use Types Packs/Day [...] documented as of this encounter Care Teams Hose Tubing Backer Relationship Specialty Start Date End Date Nicky Thibodeaux MD [address] [place] [address] PCP - General Family Medicine 04/20/18 Wu Manzo MD [address] [place] [address] [address] [place] [address] Pain Medicine 03/29/24 Feroz Ascencio MD [address] [place] [phone] Orthopaedic Surgery 06/15/24 Rolanda Tirado Underwriting TechnicianCanceling And Cutting Control Clerk 06/25/23 Latia Guardado PA-C [facility] 04/26/24 documented as of this encounter
--- OUTSIDE RECORDS SUMMARY | 2024-12-13 06:16 | XMS_ITS | Encounter Summary ---
Author Organization [employer] Address [address] [facility] 7t [place] [address] Care Team Providers Care Marine Reporter Name Role Phone [place], Nicky CASTAÑEDA Primary Care Provider [phone]- [phone] Wu Manzo MD Unavailable Feroz Ascencio MD Unavailable [phone] Reason for Visit * Reason Comments Med Refill Encounter Details Date Type Department Care Team (Late st Contact Info) Description 04/29/2023 Refill [facility] MEDICINE [address] [place] [address] Chelsi Canseco ANP [address] [place] [address] Social History Tobacco Use Types Packs/Day Years [...] as of this encounter Care Teams Marine Reporter Relationship Specialty Start Date End Date Nicky Thibodeaux MD [address] [place] [address] PCP - General Family Medicine 04/20/18 Wu Manzo MD [address] [facility] [address] [place] [address] Pain Medicine 03/29/24 Feroz Ascencio MD [address] [place] [phone] Orthopaedic Surgery 06/15/24 Rolanda Tirado Daycare ProviderWire Winding Machine Tender 06/25/23 Latia Guardado PA-C [facility] 04/26/24 documented as of this encounter
--- OUTSIDE RECORDS SUMMARY | 2024-12-13 06:16 | XMS_ITS | Encounter Summary ---
Author Organization [employer] Address [address] [facility] 7t [place] [address] Care Team Providers Care Senior Product Development Manager Name Role Phone Nicky Thibodeaux MD Primary Care Provider +1- [phone] Wu Manzo MD Unavailable Feroz Ascencio MD Unavailable [phone] Encounter Details Date Type Department Care Team (Late st Contact Info) Description 05/05/2022 Abstract [facility] MEDICINE [address] [place] [address] Nicky Thibodeaux MD [address] [place] [address] Social History Tobacco Use Types Packs/Day Years [...] ORDERAB LES Final Result Performing Organization Address City/[facility]/ZIP Co de Phone Number [facility] [address] [place] [address] [phone] * Pap Smear (08/02/2021 12:00 AM EDT) Swab Nicky Thibodeaux MD LAB CYTOLOGY ORDERABLES Fi nal Result Performing Organization Address City/[facility]/ZIP Co de Phone Number [facility] [address] [place] [address] [phone] * Mammography (10/29/2020) Mammogram BIRADS 2 Anatomical Region Laterality Modality Other Historical Provider HEALTH MAINTENANCE Final Result * Hm Colonoscopy (12/11/2015) Colonoscopy normal with Dr. Delgado Historical Provider HEALTH MAINTENANCE Final Result documented in this encounter Visit Diagnoses Not on filedocumented in this encounter Care Teams Senior Product Development Manager Relationship Specialty Start Date End Date Nicky Thibodeaux MD [address] [place] [address] PCP - General Family Medicine 04/20/18 Wu Manzo MD [address] [place] [address] [address] [place] [address] Pain Medicine 03/29/24 Feroz Ascencio MD [address] [place] [phone] Orthopaedic Surgery 06/15/24 Rolanda Tirado Administrative ClerkBusiness Solutions Architect 06/25/23 Latia Guardado PA-C [facility] 04/26/24 documented as of this encounter
--- OUTSIDE RECORDS SUMMARY | 2024-12-13 06:16 | XMS_ITS | Clinical Summary ---
Author Organization [facility] Address [address] [place] [address] Care Team Providers Care Cable Splicer Name Role Phone Nicky Thibodeaux MD Primary Care Provider +1- [phone] Social History Tobacco Use Types Packs/Day Years [...] 2) 07/21/2015 Colorectal Cancer Screening: Colonoscopy 03/30/2022 HIV Screening 03/30/2022 Hepatitis C Screening 03/30/2022 Social Influencers of Health Screening 03/30/2022 COVID-19 Vaccine (1 - 2023-2 5 season) 2023 Depression Screening 04/20/2024 Influenza Vaccine (#1) 2024 RSV Immunization Adult Patie nts (1 [...] age to complete this topic Care Teams Cable Splicer Relationship Specialty Start Date End Date Nicky Thibodeaux MD [address] [place] [address] [place] [phone] PCP - General Internal Medicine 12/21/13
--- OUTSIDE RECORDS SUMMARY | 2024-12-13 06:16 | XMS_ITS | Encounter Summary ---
Author Organization [employer] Address [address] [facility] [address] 7t [place] [address] Care Team Providers Care Planting Material Carrier Name Role Phone Nicky Thibodeaux MD Primary Care Provider +1- [phone] Wu Manzo MD Unavailable Feroz Ascencio MD Unavailable [phone] Encounter Details Date Type Department Care Team (Late st Contact Info) Description 03/11/2023 Abstract [facility] MEDICINE [address] [place], [place] [phone] Thuy Valenzuela Social History Tobacco Use Types [...] documented as of this encounter Care Teams Planting Material Carrier Relationship Specialty Start Date End Date Nicky Thibodeaux MD [address] [place] [address] PCP - General Family Medicine 04/20/18 Wu Manzo MD [address] [place] [address] [address] [place] [address] Pain Medicine 03/29/24 Feroz Ascencio MD [address] [place] [phone] Orthopaedic Surgery 06/15/24 Rolanda Tirado Crab CatcherPosition Classifier 06/25/23 Latia Guardado PA-C [facility] 04/26/24 documented as of this encounter
--- OUTSIDE RECORDS SUMMARY | 2024-12-13 06:16 | XMS_ITS | Encounter Summary ---
Author Organization [employer] Address [address] [facility] [address] 7t [place] [address] Care Team Providers Care Auto Air Conditioning Installer Name Role Phone Nicky Thibodeaux MD Primary Care Provider +1- [phone] Wu Manzo MD Unavailable Feroz Ascencio MD Unavailable [phone] Encounter Details Date Type Department Care Team (Late st Contact Info) Description 12/06/2024 Telephone [facility] MEDICINE 230 [place] [address] Nicky Thibodeaux MD 230 [place] [address] Social History Tobacco Use Types Packs/Day Years [...] encounter Miscellaneous Notes * Telephone Encounter - Kirstin Lopez - 12/06/2024 3:37 PM EDT Tc from pt stating script for Tirzepatide-Weight Management (Zepbound) 7.5 MG/0.5ML solution auto-injector requires a prior authorization. documented in this encounter Plan of Treatment Not on file documented as of this encounter Visit Diagnoses Not on filedocumented in this encounter Additional Health Concerns Assessment Noted Time PHQ-9 Depression Total Score: 14 024 10:51 AM EST documented as of this encounter Care Teams Auto Air Conditioning Installer Relationship Specialty Start Date End Date Nicky Thibodeaux MD [address] [place] [address] PCP - General Family Medicine 04/20/18 Wu Manzo MD [address] [facility] [address] [place] [address] Pain Medicine 03/29/24 Feroz Ascencio MD [address] [place] [phone] Orthopaedic Surgery 06/15/24 Rolanda Tirado Customer Energy SpecialistFlat Surfacer 06/25/23 TREASURE [facility] 04/26/24 documented as of this encounter
--- OUTSIDE RECORDS SUMMARY | 2024-12-13 06:16 | XMS_ITS | Encounter Summary ---
Author Organization [employer] Address 75 [facility] 7t [place] [address] Care Team Providers Care Bar Porter Name Role Phone Nicky Thibodeaux MD Primary Care Provider +1- [phone] Wu Manzo MD Unavailable Feroz Ascencio MD Unavailable [phone] Reason for Visit * Reason Comments Med Refill Encounter Details Date Type Department Care Team (Late st Contact Info) Description 05/19/2023 Refill [facility] MEDICINE 230 [place] [address] Nicky Thibodeaux MD 230 [place], [place] [phone] Asthma, unspecified asthma severity, unspecified whether complicated, [...] documented as of this encounter Care Teams Bar Porter Relationship Specialty Start Date End Date Nicky Thibodeaux MD [address] [place] [address] PCP - General Family Medicine 04/20/18 Wu Manzo MD 10 [facility] [address] [place] [address] Pain Medicine 03/29/24 Feroz Ascencio MD [address] [place] [phone] Orthopaedic Surgery 06/15/24 Rolanda Tirado Baggage Agent SupervisorTrim Mounter 06/25/23 Latia Guardado PA-C [facility] 04/26/24 documented as of this encounter
--- OUTSIDE RECORDS SUMMARY | 2024-12-13 06:16 | XMS_ITS | Encounter Summary ---
Author Organization [employer] Address [address] [facility] [address] 7t [place] [address] Care Team Providers Care Catalogue Illustrator Name Role Phone Nicky Thibodeaux MD Primary Care Provider +1- [phone] Wu Manzo MD Unavailable Feroz Ascencio MD Unavailable [phone] Reason for Visit * Reason Onset Date Comments Pre-visit Planning 11/09/2023 Encounter Details Date Type Department Care Team (Late st Contact Info) Description 11/09/2023 Telephone [facility] MED[facility]INE [address] [place] [address] Nicky Thibodeaux MD 230 [place] [address] Pre-visit Planning Social History Tobacco Use Types [...] documented as of this encounter Care Teams Catalogue Illustrator Relationship Specialty Start Date End Date Nicky Thibodeaux MD 230 [place] [address] PCP - General Family Medicine 04/20/18 Wu Manzo MD [address] [place] [address] [address] [place] [address] Pain Medicine 03/29/24 Feroz Ascencio MD [address] [place] [phone] Orthopaedic Surgery 06/15/24 Rolanda Tirado Manufacturing TechnicianCaptain Fire Prevention Bureau 06/25/23 Latia Guardado PA-C [facility] 04/26/24 documented as of this encounter
--- OUTSIDE RECORDS SUMMARY | 2024-12-13 06:16 | XMS_ITS | Encounter Summary ---
Author Organization [employer] Address [address] [place] [address] 7t [place] [address] Care Team Providers Care Production Supervisor Trainee Name Role Phone Nicky Thibodeaux MD Primary Care Provider +1- [phone] Wu Manzo MD Unavailable Feroz Ascencio MD Unavailable [phone] Encounter Details Date Type Department Care Team (Late st Contact Info) Description 05/22/2022 Orders Only [facility] MEDICINE 230 [place] [address] Nereida Horner LPN Social History Tobacco Use [...] on filedocumented in this encounter Care Teams Production Supervisor Trainee Relationship Specialty Start Date End Date Nicky Thibodeaux MD 230 [place] [address] PCP - General Family Medicine 04/20/18 Wu Manzo MD [address] [facility] [address] [place] [address] Pain Medicine 03/29/24 Feroz Ascencio MD [address] [place] [phone] Orthopaedic Surgery 06/15/24 Rolanda Tirado Powersaw SupervisorAdministrative Hearing Officer 06/25/23 TREASURE [facility] 04/26/24 documented as of this encounter
--- OUTSIDE RECORDS SUMMARY | 2024-12-13 06:16 | XMS_ITS | Encounter Summary ---
Author Organization [employer] Address 75 [facility] 7t [place] [address] Care Team Providers Care Talent Program Manager Name Role Phone Nicky Thibodeaux MD Primary Care Provider +1- [phone] Wu Manzo MD Unavailable Feroz Ascencio MD Unavailable [phone] Encounter Details Date Type Department Care Team (Late st Contact Info) Description 08/12/2022 Orders Only [facility] MEDICINE 230 [place] [address] Nicky Thibodeaux MD 230 [place] [address] Social History Tobacco Use Types Packs/Day Years [...] Noted Time PHQ-9 Depression Total Score: 22 04/12/2 023 2:09 PM EDT documented as of this encounter Care Teams Talent Program Manager Relationship Specialty Start Date End Date Nicky Thibodeaux MD [address] [place] [address] PCP - General Family Medicine 04/20/18 Wu Manzo MD [address] [place] [address] Pain Medicine 03/29/24 Feroz Ascencio MD [address] [place] [phone] Orthopaedic Surgery 06/15/24 Rolanda Tirado Slip Cover EstimatorSystems Test Technician 06/25/23 TREASURE [facility] 04/26/24 documented as of this encounter
--- OUTSIDE RECORDS SUMMARY | 2024-12-13 06:16 | XMS_ITS | Encounter Summary ---
Author Organization [employer] Address [address] [facility] [address] 7t [place] [address] Care Team Providers Care Varying Exceptionalities Teacher Name Role Phone Nicky Thibodeaux MD Primary Care Provider +1- [phone] Wu Manzo MD Unavailable Feroz Ascencio MD Unavailable [phone] Encounter Details Date Type Department Care Team (Late st Contact Info) Description 2023 Orders Only [facility] MEDICINE 230 [place], [place] [phone] Nicky Thibodeaux MD 230 [place] [address] Social History Tobacco Use Types Packs/Day Years [...] documented as of this encounter Care Teams Varying Exceptionalities Teacher Relationship Specialty Start Date End Date Nicky Thibodeaux MD [address] [place] [address] PCP - General Family Medicine 04/20/18 Wu Manzo MD [address] [facility] [address] [place] [address] Pain Medicine 03/29/24 Feroz Ascencio MD [address] [place] [phone] Orthopaedic Surgery 06/15/24 Rolanda Tirado Manager Credit RiskCarding Machine Feeder 06/25/23 TREASURE [facility] 04/26/24 documented as of this encounter
--- OUTSIDE RECORDS SUMMARY | 2024-12-13 06:16 | XMS_ITS | Encounter Summary ---
Author Organization [employer] Address [address] [facility] [address] 7t [place] [address] Care Team Providers Care Manager Call Center Name Role Phone Nicky Thibodeaux MD Primary Care Provider [phone]- [phone] Wu Manzo MD Unavailable Feroz Ascencio MD Unavailable [phone] Reason for Visit * Reason Onset Date Comments PA 10/12/2023 Encounter Details Date Type Department Care Team (Late st Contact Info) Description 10/12/2023 Telephone [facility] MEDICINE 230 [place] [address] Nicky Thibodeaux MD 230 [place] [address] [place] Social History Tobacco Use Types Packs/Day [...] documented as of this encounter Care Teams Manager Call Center Relationship Specialty Start Date End Date Nicky Thibodeaux MD 230 [place] [address] PCP - General Family Medicine 04/20/18 Wu Manzo MD [address] [facility] [address] [place] [address] Pain Medicine 03/29/24 Feroz Ascencio MD [address] [place] [phone] Orthopaedic Surgery 06/15/24 Rolanda Tirado Belt Maker HelperAsphalt Plant Laborer 06/25/23 Latia Guardado PA-C [facility] 04/26/24 documented as of this encounter
--- OUTSIDE RECORDS SUMMARY | 2024-12-13 06:16 | XMS_ITS | Encounter Summary ---
Author Organization [employer] Address 75 [facility] 7t [place] [address] Care Team Providers Care Manager Test Name Role Phone Nicky Thibodeaux MD Primary Care Provider +1- [phone] Wu Manzo MD Unavailable Feroz Ascencio MD Unavailable [phone] Encounter Details Date Type Department Care Team [...] on filedocumented in this encounter Care Teams Manager Test Relationship Specialty Start Date End Date Nicky Thibodeaux MD [address] [place] [address] PCP - General Family Medicine 04/20/18 Wu Manzo MD [address] [facility] [address] [place] [address] Pain Medicine 03/29/24 Feroz Ascencio MD [address] [place] [phone] Orthopaedic Surgery 06/15/24 Rolanda Tirado Design ManagerDental Biller 06/25/23 TREASURE [facility] 04/26/24 documented as of this encounter
--- OUTSIDE RECORDS SUMMARY | 2024-12-13 06:16 | XMS_ITS | Encounter Summary ---
Author Organization [employer] Address 75 [facility] 7t [place] [address] Care Team Providers Care Cod Clerk Name Role Phone Nicky Thibodeaux MD Primary Care Provider +1- [phone] Wu Manzo MD Unavailable Feroz Ascencio MD Unavailable [phone] Reason for Visit * Reason Comments Med Refill Encounter Details Date Type Department Care Team (Late st Contact Info) Description 04/09/[address] [facility] MEDICINE 230 [place] [address] Nicky Thibodeaux MD 230 [place] [address] Pain Social History Tobacco Use Types Packs/Day [...] documented as of this encounter Care Teams Cod Clerk Relationship Specialty Start Date End Date Nicky Thibodeaux MD [address] [place] [address] PCP - General Family Medicine 04/20/18 Wu Manzo MD 10 [facility] [address] [place] [address] Pain Medicine 03/29/24 Feroz Ascencio MD [address] [place] [phone] Orthopaedic Surgery 06/15/24 Rolanda Tirado J2Ee ArchitectTime Clock Mechanic 06/25/23 TREASURE [facility] 04/26/24 documented as of this encounter
--- OUTSIDE RECORDS SUMMARY | 2024-12-13 06:16 | XMS_ITS | Encounter Summary ---
Author Organization [employer] Address 75 [facility] 7t [place] [address] Care Team Providers Care Tooth Clerk Name Role Phone Treutlen, Nicky CASTAÑEDA Primary Care Provider +1- [phone] Wu Manzo MD Unavailable Feroz Ascencio MD Unavailable [phone] Reason for Visit * Reason Onset Date Comments Medication Question 12/11/2022 Encounter Details Date Type Department Care Team (Late st Contact Info) Description 12/11/2022 Telephone [facility] MEDICINE 230 [place] [address] Chelsi Canseco ANP 230 [place] [address] Medication Question Social History Tobacco Use Types [...] documented as of this encounter Care Teams Tooth Clerk Relationship Specialty Start Date End Date Nicky Thibodeaux MD [address] [place] [address] PCP - General Family Medicine 04/20/18 Wu Manzo MD [address] [place] [address] [place] [address] Pain Medicine 03/29/24 Feroz Ascencio MD [address] [place] [phone] Orthopaedic Surgery 06/15/24 Rolanda Tirado Electrical Systems DesignerPreforms Laminator 06/25/23 Latia Guardado PA-C [facility] 04/26/24 documented as of this encounter
--- OUTSIDE RECORDS SUMMARY | 2024-12-13 06:16 | XMS_ITS | Encounter Summary ---
Author Organization [employer] Address 75 [facility] 7t [place] [address] Care Team Providers Care Cleaning Team Member Name Role Phone Nicky Thibodeaux MD Primary Care Provider +1- [phone] Wu Manzo MD Unavailable Feroz Ascencio MD Unavailable [phone] Reason for Visit * Reason Onset Date Comments PT1 12/12/2024 Encounter Details Date Type Department Care Team (Late st Contact Info) Description 12/12/2024 Telephone [facility] MEDICINE 230 [place] [address] Nicky Thibodeaux MD 230 [place] [address] PT1 Social History Tobacco Use Types Packs/Day Years [...] encounter Miscellaneous Notes * Telephone Encounter - Chay Rooney - 12/12/2024 1:15 PM EDT CHW submitted PT-1 requests to [facility] and [facility] per patient???s request. CHW informed patient via phone. * Telephone Encounter - Kirstin Lopez - 12/12/2024 12:00 PM EDT Patient calling requesting PT1 Home Address verified: Y/N: Yes Provider name or facility name: [facility] Facility Address: [address] [place] [address] [address] [place] [address] Escort needed: Y/N: Yes Do you have a wheelchair: Y/N: No If yes- Manual or electric: n/a Visits: 2 x a week Patient calling requesting PT1 Home Address verified: Y/N: Yes Provider name or facility name: [facility] Facility Address: [address] [place] [address] Escort needed: Y/N: No Do you have a wheelchair: Y/N: No If yes- Manual or electric: n/a Visits: 1 x a month documented in this encounter Plan of Treatment Not on file documented as of this encounter Visit Diagnoses Not on filedocumented in this encounter Additional Health Concerns Assessment Noted Time PHQ-9 Depression Total Score: 14 024 10:51 AM EST documented as of this encounter Care Teams Cleaning Team Member Relationship Specialty Start Date End Date Nicky Thibodeaux MD [address] [place] [address] PCP - General Family Medicine 04/20/18 Wu Manzo MD [address] [place] [address] [place] [address] Pain Medicine 03/29/24 Feroz Ascencio MD [address] [place] [phone] Orthopaedic Surgery 06/15/24 Rolanda Tirado Wood GetterEyeglass Maker 06/25/23 TREASURE [facility] 04/26/24 documented as of this encounter
--- OUTSIDE RECORDS SUMMARY | 2024-12-13 06:16 | XMS_ITS | Encounter Summary ---
Author Organization [employer] Address [address] [facility] [address] 7t [place] [address] Care Team Providers Care Space Control Agent Name Role Phone Nicky Thibodeaux MD Primary Care Provider +1- [phone] Wu Manzo MD Unavailable Feroz Ascencio MD Unavailable [phone] Reason for Visit * Reason Onset Date Comments Med Refill 04/29/2023 Encounter Details Date Type Department Care Team (Late st Contact Info) Description 04/29/2023 Telephone [facility] MEDICINE 230 [place] [address] Nicky Thibodeaux MD 230 [place] [address] Med Refill Social History Tobacco Use Types [...] 500 MG tablet To be sent to: [facility]/pharmacy #[id number] [place] [address] documented in this encounter Plan of Treatment Not on file documented as of this encounter Visit Diagnoses Not on filedocumented in this encounter Additional Health Concerns Assessment Noted Time PHQ-9 Depression Total Score: 22 023 2:09 PM EDT documented as of this encounter Care Teams Space Control Agent Relationship Specialty Start Date End Date Nicky Thibodeaux MD [address] [place] [address] PCP - General Family Medicine 04/20/18 Wu Manzo MD [address] [place] [address] [address] [place] [address] Pain Medicine 03/29/24 Feroz Ascencio MD [address] [place] [phone] Orthopaedic Surgery 06/15/24 Rolanda Tirado Technical SpecialistStamp Pad Maker 06/25/23 TREASURE [facility] 04/26/24 documented as of this encounter
--- OUTSIDE RECORDS SUMMARY | 2024-12-13 06:16 | XMS_ITS | Encounter Summary ---
Author Organization [employer] Address 75 [facility] 7t [place] [address] Care Team Providers Care Fourdrinier Machine Operator Name Role Phone Nicky Thibodeaux MD Primary Care Provider [phone]- [phone] Wu Manzo MD Unavailable Feroz Ascencio MD Unavailable [phone] Reason for Visit * Reason Comments Med Refill Encounter Details Date Type Department Care Team (Late st Contact Info) Description 12/11/[address] [facility] MEDICINE 230 [place] [address] Nicky Thibodeaux MD 230 [place] [address] Social History Tobacco Use Types Packs/Day Years [...] documented as of this encounter Care Teams Fourdrinier Machine Operator Relationship Specialty Start Date End Date Nicky Thibodeaux MD [address] [place] [address] PCP - General Family Medicine 04/20/18 Wu Manzo MD [address] [place] [address] [address] [place] [address] Pain Medicine 03/29/24 Feroz Ascencio MD [address] [place] [phone] Orthopaedic Surgery 06/15/24 Rolanda Tirado Hat Stock Laminating Machine OperatorPile Driver Operator 06/25/23 TREASURE [facility] 04/26/24 documented as of this encounter
--- OUTSIDE RECORDS SUMMARY | 2024-12-13 06:16 | XMS_ITS | Encounter Summary ---
Author Organization [employer] Address [address] [facility] [address] 7t [place] [address] Care Team Providers Care Layout Designer Name Role Phone Nicky Thibodeaux MD Primary Care Provider +1- [phone] Wu Manzo MD Unavailable Feroz Ascencio MD Unavailable [phone] Reason for Visit * Reason Onset Date Comments PT-1 12/08/2023 Encounter Details Date Type Department Care Team (Late st Contact Info) Description 12/08/[address] [facility] MEDICINE 230 [place] [address] Nicky Thibodeaux MD 230 [place] [address] PT-1 Social History Tobacco Use Types Packs/Day [...] Y/N: Yes Provider name or facility name: [facility] pain management Facility Address: [address] [place] [address] Escort needed: Y/N: No Do you have [...] documented as of this encounter Care Teams Layout Designer Relationship Specialty Start Date End Date Nicky Thibodeaux MD [address] [place] [address] PCP - General Family Medicine 04/20/18 Wu Manzo MD [address] [place] [address] Pain Medicine 03/29/24 Feroz Ascencio MD [address] [place] [phone] Orthopaedic Surgery 06/15/24 Rolanda Tirado Quality Assurance TesterTower Climber 06/25/23 TRE[facility]URE [facility] 04/26/24 documented as of this encounter
--- OUTSIDE RECORDS SUMMARY | 2024-12-13 06:16 | XMS_ITS | Encounter Summary ---
Author Organization [employer] Address [address] [facility] 7t [place] [address] Care Team Providers Care Director Funeral Name Role Phone Nicky Thibodeaux MD Primary Care Provider [phone] Wu Manzo MD Unavailable Feroz Ascencio MD Unavailable [phone] Reason for Visit * Reason Comments Med Refill Encounter Details Date Type Department Care Team (Late st Contact Info) Description 12/13/2024 Refill [facility] MED[facility]INE [address] [place] [address] Nicky Thibodeaux MD [address] [place] [address] Osteoarthritis of hip, unspecified laterality, unspecified osteoarthritis type; Pain Social History Tobacco Use Types Packs/Day [...] of hip, unspecified laterality, unspecified osteoarthritis type Pain Generalized pain documented in this encounter Additional Health Concerns Assessment Noted Time PHQ-9 Depression Total Score: 14 024 10:51 AM EST documented as of this encounter Care Teams Director Funeral Relationship Specialty Start Date End Date Nicky Thibodeaux MD [address] [place] [address] PCP - General Family Medicine 04/20/18 Wu Manzo MD [address] [place] [phone] Pain Medicine 03/29/24 Feroz Ascencio MD [address] [place] [phone] Orthopaedic Surgery 06/15/24 Rolanda Tirado Showroom SalespersonCard Lacer 06/25/23 Latia Guardado PA-C [facility] 04/26/24 documented as of this encounter
--- OUTSIDE RECORDS SUMMARY | 2024-12-13 06:16 | XMS_ITS | Encounter Summary ---
Author Organization [employer] Address [address] [facility] 7t [place] [address] Care Team Providers Care Safety Companion Name Role Phone Graves, Nicky CASTAÑEDA Primary Care Provider [phone]- [phone] Wu Manzo MD Unavailable Feroz Ascencio MD Unavailable [phone] Reason for Visit * Reason Comments Med Refill Encounter Details Date Type Department Care Team (Late st Contact Info) Description 09/30/2022 Refill [facility] MEDICINE [address] [place] [address] Deborah Stratton MD [address] [place] [address] Chronic migraine without aura without status migrainosus, [...] documented as of this encounter Care Teams Safety Companion Relationship Specialty Start Date End Date Nicky Thibodeaux MD [address] [place] [phone] PCP - General Family Medicine 04/20/18 Wu Manzo MD [address] [place] [address] [address] [place] [phone] Pain Medicine 03/29/24 Feroz Ascencio MD [address] [place] [phone] Orthopaedic Surgery 06/15/24 Rolanda Tirado Professor Of MathematicsPayable Processor 06/25/23 Latia Guardado PA-C [facility] 04/26/24 documented as of this encounter
--- OUTSIDE RECORDS SUMMARY | 2024-12-13 06:16 | XMS_ITS | Encounter Summary ---
Author Organization [employer] Address [address] [facility] 7t [place] [address] Care Team Providers Care Brass Instrument Repair Technician Name Role Phone Nicky Thibodeaux MD Primary Care Provider [phone] Wu Manzo MD Unavailable Feroz Ascencio MD Unavailable [phone] Reason for Visit * Reason Comments Med Refill Encounter Details Date Type Department Care Team (Late st Contact Info) Description 05/26/2024 Refill [facility] MEDICINE [address] [place] [address] Nicky Thibodeaux MD [address] [place] [address] Pain Social History Tobacco Use Types Packs/Day [...] documented as of this encounter Care Teams Brass Instrument Repair Technician Relationship Specialty Start Date End Date Nicky Thibodeaux MD [address] [place] [address] PCP - General Family Medicine 04/20/18 Wu Manzo MD [address] [place] [phone] Pain Medicine 03/29/24 Feroz Ascencio MD [address] [place] [phone] Orthopaedic Surgery 06/15/24 Rolanda Tirado Renewals ManagerSea Foam Kiss Maker 06/25/23 Latia Guardado PA-C [facility] 04/26/24 documented as of this encounter
--- OUTSIDE RECORDS SUMMARY | 2024-12-13 06:17 | XMS_ITS | Encounter Summary ---
Author Organization [employer] Address [address] [facility] 7t [place] [address] Care Team Providers Care Radio Operator Name Role Phone Nicky Thibodeaux MD Primary Care Provider [phone] Wu Manzo MD Unavailable Feroz Ascencio MD Unavailable [phone] Reason for Visit * Reason Onset Date Comments pt1 10/12/2024 Encounter Details Date Type Department Care Team (Late st Contact Info) Description 10/12/2024 Telephone [facility] MEDICINE [address] [place] [address] Nicky Thibodeaux MD [address] [place] [address] pt1 Social History Tobacco Use Types Packs/Day Years [...] encounter Miscellaneous Notes * Telephone Encounter - Cheyenne Caprio - 10/12/2024 2:08 PM EDT CHW Cheyenne Carpio submitted pt1 to [facility] for location below and will take up to 7 days to getapproved. CHW placed call to patient to let her know, patient understood and will call if she has any concerns. documented in this encounter Plan of Treatment Not on file documented as of this encounter Visit Diagnoses Not on filedocumented in this encounter Additional Health Concerns Assessment Noted Time PHQ-9 Depression Total Score: 14 024 10:51 AM EST documented as of this encounter Care Teams Radio Operator Relationship Specialty Start Date End Date Nicky Thibodeaux MD [address] [place] [phone] PCP - General Family Medicine 04/20/18 Wu Manzo MD [address] [place] [phone] Pain Medicine 03/29/24 Feroz Ascencio MD [address] [place] [phone] Orthopaedic Surgery 06/15/24 Rolanda Tirado School Attendance SecretaryBiological Scientist 06/25/23 TREASURE [facility] 04/26/24 documented as of this encounter
--- OUTSIDE RECORDS SUMMARY | 2024-12-13 06:17 | XMS_ITS | Clinical Summary ---
Author Organization [employer] Address [address] [place] [address] [address] [place] [address] Care Team Providers Care Regional Service Manager Name Role Phone Nicky Thibodeaux MD Primary Care Provider [phone] Wu Manzo MD Unavailable Feroz Ascencio MD Unavailable [phone] Allergies Active Allergy Reactions Criticality Noted Date Comments Aspirin GI intolerance Low 01/03/2013 Ibuprofen GI intolerance Low 12/29/2014 Medications Spiriva HandiHaler 18 MCG inhalation capsuleIndication s:Chronic obstructive pulmonary disease, unspecified COPD type (CMS/HCC) INHALE 1 CAPSULE VIA HANDIHALER ONCE DAILY AT THE SAME TIME EVERY DAY 30 capsule 11 023 Active cyanocobalamin (Vitamin B-12) 100 MCG tablet [...] of candidiasis. Do not swallow. 1 each 11 024 Active clobetasol (Temovate) 0.05 % creamIndications: Dermatitis APPLY THIN COAT TO AFFECTED AREA TWICE A DAY 60 g 2 024 Active lisinopril 10 MG tabletIndications :Primary hypertension TAKE 1 TABLET BY MOUTH EVERY DAY 90 tablet 3 024 Active baclofen (Lioresal) 5 MG tabletIndications :Chronic low back pain, unspecified back pain laterality, unspecified whether sciatica present TAKE 1 TABLET BY MOUTH 3 TIMES A DAY NEEDED FOR MUSCLE PAIN Active zolpidem (Ambien) 10 MG tabletIndications :Primary insomnia 1 tablet. Active ALPRAZolam (Xanax) 0.5 MG tabletIndications :Anxiety 0.5 mg. Active gabapentin (Neurontin) 600 MG tabletIndications :Chronic low back pain, unspecified back pain laterality, unspecified whether sciatica present 600 mg. Active atorvastatin (Lipitor) 40 MG tabletIndications :Dyslipidemia Take 1 tablet (40 mg) by mouth at bedtime. 90 tablet 3 Active lamoTRIgine (LaMICtal XR) 200 mg tablet sustained-release 24 hour 24 hr tabletIndications :Depression with anxiety 200 mg. Active QUEtiapine (SEROquel) 50 MG tabletIndications :Depression with anxiety 50 mg. Active HYDROcodone-aceta minophen (Salamonia) 5-325 MG tabletIndications :Chronic low back pain, unspecified back pain laterality, unspecified whether sciatica present 1 tablet. Active OXcarbazepine (Trileptal) 600 MG tabletIndications :Depression with anxiety 600 mg. Active sennosides (Senna-Time) 8.6 MG tabletIndications :Constipation, unspecified constipation type TAKE 1 TABLET BY ORAL ROUTE EVERY DAY NEEDED FOR CONSTIPATION NEEDED 90 tablet 3 Active Omeprazole 20 MG Tablet Delayed Release DispersibleIndica tions:Gastroesoph ageal reflux disease, unspecified whether esophagitis present 1 capsule. Active Ventolin HFA 108 (90 Base) MCG/ACT inhalerIndication s:Asthma, unspecified asthma severity, unspecified whether complicated, unspecified whether persistent INHALE 2 PUFFS BY MOUTH EVERY 4 TO 6 HOURS NEEDED 18 g 1 025 Active albuterol (2.5 MG/3ML) 0.083% nebulizer solution INHALE 3ML BY NEBULIZATION ROUTE FOUR TIMES EVERY DAY IF NEEDED 75 mL 3 025 Active cholecalciferol (D3-1000) 25 MCG (1000 UT) capsuleIndication s:Vitamin D deficiency TAKE 1 CAPSULE BY MOUTH EVERY DAY 90 capsule 1 025 Active omeprazole (PriLOSEC) [address] capsuleIndication s:Abdominal pain, unspecified abdominal location TAKE 1 CAPSULE BY MOUTH EVERY DAY BEFORE A MEAL 90 capsule 1 025 Active Tirzepatide-Weigh t Management (Zepbound) 7.5 MG/0.5ML solution auto-injectorIndi cations:Class 2 severe obesity due to excess calories with serious comorbidity and body mass index (BMI) of 35.0 to 35.9 in adult ([facility]) Inject 0.5 mL (7.5 mg) under the skin 1 (one) time per week. 2 mL 025 Active SUMAtriptan (Imitrex) 50 MG tabletIndications :Chronic migraine without aura without status migrainosus, not intractable TAKE 1 TABLET BY MOUTH AT ONSET OF MIGRAINE MAY REPEAT DOSE IN 2 HOURS IF NEEDED MAX 4 TABLETS DAILY 10 tablet 2 025 Active diclofenac (Voltaren) 75 MG EC tabletIndications :Osteoarthritis of hip, unspecified laterality, unspecified osteoarthritis type TAKE 1 TABLET BY MOUTH TWICE A DAY NEEDED 60 tablet 025 Active Acetaminophen Extra Strength 500 MG tabletIndications :Pain TAKE 1 TABLET BY MOUTH EVERY 8 HOURS NEEDED 90 tablet 025 Active lidocaine (Lidoderm) 5 % patchIndications: Pain APPLY 1 PATCH EVERY DAY MAY WEAR UP TO 12 HOURS 30 patch 11 025 Active lidocaine-priloca ine (Emla) 2.5-2.5 % creamIndications: Pain Apply topically if needed each day for mild pain. APPLY TOPICALLY 1 (ONE) TIME FOR 1 DOSE. APPLY TWICE A DAY NEEDED FOR PAIN 30 g 1 025 Active cyclobenzaprine (Flexeril) 10 MG tabletIndications :Pain TAKE 1 TABLET BY MOUTH UP TO 3 TIMES DAILY NEEDED FOR MUSCLE PAIN 90 tablet 025 Active lidocaine (Lidoderm) 5 % patchIndications: Pain APPLY 1 PATCH EVERY DAY MAY WEAR UP TO 12 HOURS 30 patch 11 024 2024 Discontinued lidocaine-priloca ine (Emla) 2.5-2.5 % creamIndications: Pain APPLY TOPICALLY 1 (ONE) TIME FOR 1 DOSE. APPLY TWICE A DAY NEEDED FOR PAIN 30 g 1 025 2024 Discontinued(R eorder (will not trigger notification to Pharmacy)) diclofenac (Voltaren) 75 MG EC tabletIndications :Osteoarthritis of hip, unspecified laterality, unspecified osteoarthritis type TAKE 1 TABLET BY MOUTH TWICE A DAY NEEDED 60 tablet 025 2024 Discontinued(R eorder (will not trigger notification to Pharmacy)) Acetaminophen Extra Strength 500 MG tabletIndications :Pain TAKE 1 TABLET BY MOUTH EVERY 8 HOURS NEEDED 90 tablet 025 2024 Discontinued(R eorder (will not trigger notification to Pharmacy)) cyclobenzaprine (Flexeril) 10 MG tabletIndications :Pain TAKE 1 TABLET BY MOUTH UP TO 3 TIMES DAILY NEEDED FOR MUSCLE PAIN 90 tablet 025 2024 Discontinued Active Problems Problem Noted [...] due after 03/14/25 -eye care facilitated by [facility] -dental home is [facility] -[facility] care proxy paperwork completed by to the patient 07/17/23 Assessment & Plan (03/14/2024 11:23 AM EST): -next physical exam due after 03/14/25 -eye care facilitated by [facility] -dental home is [facility] -[facility] care proxy paperwork completed by to the patient 07/17/23 Assessment & Plan (11/19/2023 11:08 AM EDT): -next physical exam due after 12/11/23 -eye care facilitated by [facility] -dental home is [facility] -swap[place] care proxy paperwork completed by to the patient 07/17/23 Assessment & Plan (07/17/2023 10:10 AM EDT): -next physical exam due after 12/11/23 -eye care facilitated by [facility] -dental home is [facility] -swapna care proxy paperwork [...] the MRI image on the disc from [facility] where she had MRI performed. I also requested her to read brochures about [facility] [facility] and [employer]. Assessment & Plan (07/17/2023 10:03 AM EDT): Her pain is not controlled. Dillon asked her to reach out to her original prescriber for Vicodin at [facility]. She is 7 weeks post-op sugery and is weaning her percocet's. Dillon explained since she is on Ambien, gabapentin, and benzodiazapine I would not be able to safely prescribe the medications through our program. Assessment & Plan (12/15/2022 9:38 AM EDT): Her pain is not controlled. Dillon asked her to reach out to her original prescriber for Vicodin at [facility]. She is 7 weeks post-op sugery and is weaning her percocet's. Dillon explained since she is on Ambien, gabapentin, and benzodiazapine I would not be able to safely prescribe the medications through our program. Assessment & Plan (09/03/2022 12:12 PM EDT): Her pain is not controlled. Dillon asked her to reach out to her original prescriber for Vicodin at [facility]. She is 7 weeks post-op sugery and [...] 35.0 to 35.9 in adult 09/02/2022 Overview (09/14/2024): Pt has serious health conditions of severe deconditioning, severe osteoarthritis, hx stroke and hypertension. Weight loss effort tried in the past including diet, exercise were unsuccessful. Will request coverage of Wegovy from insurance 09/23/23. -Wegovy (semaglutide) -PA resubmitted 11/19/23 -Advised to Switch from Wegovy to Zepbound 03/14/24 -Zepbound increased to 7.5mg 09/14/24 Assessment & Plan (09/14/2024 12:10 PM EDT): Pt has serious health conditions of severe deconditioning, severe osteoarthritis, hx stroke and hypertension. Weight loss effort tried in the past including diet, exercise were unsuccessful. Will request coverage of Wegovy from insurance 09/23/23. -Wegovy (semaglutide) -PA resubmitted 11/19/23 -Advised to Switch from Wegovy to Zepbound 03/14/24 -Zepbound increased to 7.5mg 09/14/24 Assessment & Plan (03/14/2024 1:11 PM EST): [...] considered to be 1.7 or 2.4 mg skilled nursing. -PA resubmitted 11/19/23 - Advised to Switch [...] considered to be 1.7 or 2.4 mg skilled nursing. -PA resubmitted 11/19/23 Assessment & Plan (09/23/2023 [...] considered to be 1.7 or 2.4 mg skilled nursing. Chronic low back pain 07/23/2022 Overview (08/11/2024): -s/p surgeryL4-L5 fusion for spondylolisthesis 07/10/[address] Tania Escamilla -thoracic x rays 01/29/23 demonstrate dextroscolosis, disc space narrowing at T6-T7, mild degenerative changes -lumbar MRI 12/10/22 demonstrates transitional lumbosacra anatomy with sacralized L5, multilevel disc bulge, facet arthropathy, LF thickening; L1-L2 mild left NFS; L2-L3 mild central stenosis, interbody device -Pt continues to report severe pain. She is getting Vicodin from [facility]. She requests opiate medications from [...] therapy, multiple injections, and awaiting TENs unit. -[facility] prescribing hydrocodone/APA 5/325 to support instrumented activities [...] the MRI image on the disc from [facility] where she had MRI performed. I [...] severe pain. She is getting Vicodin from [facility]. She requests opiate medications from [...] pain. She sees a therapist and psychiatrist. -[facility] prescribing hydrocodone/APA to support instrumented activities of daily living. Note from 11/26/23 reviewed. -I will discuss with our pain management providers for any recommendations - Referred to follow up with Pain management. Pain pump is being advised 03/14/24 Assessment & Plan (11/19/2023 11:10 AM EDT): -s/p surgery with Dr. Tania Escamilla 06/2022 -Pt continues to report severe pain. She is getting Vicodin from [facility]. She requests opiate medications from [...] -Referral placed to Gynecology, Dr. Aaron 07/17/23 -[facility] called 09/23/23 stating pt declined appt [...] -Referral placed to Gynecology, Dr. Aaron 07/17/23 -[facility] called 09/23/23 stating pt declined appt [...] -Referral placed to Gynecology, Dr. Aaron 07/17/23 -[facility] called 09/23/23 stating pt declined appt [...] left MARISELA 01/29/[address] [place] in [place] -s/p bilateral GT bursa injection under fluoroscopic guidance 06/13/24 with moderate reduction of pain in bilateral lateral hips -seen by ortho at [facility] 07/21/24 Hip pain 07/13/2012 [...] living Abnormal mammogram 01/19/2012 Dyslipidemia 01/19/2012 Overview (09/14/2024): Lab Results Component Value Date CHOL 219 (H) 07/17/2023 TRIG 168 (H) 07/17/2023 TRIG 159 (H) 09/03/2022 HDL 49 07/17/2023 LDLCHOLCAL 137 (H) 07/17/2023 -continue lifestyle modification -atorvastatin 40mg restarted 07/20/23 Assessment & Plan [...] Encounters Date Type Department Care Team Description 12/13/2024 Refill [facility] MEDIC[facility] [address] [place] [address] Nicky Thibodeaux MD Osteoarthritis of hip, unspecified laterality, unspecified osteoarthritis type; Pain 12/12/2024 Telephone C MEDICINE [address] [place] [address] Nciky Thibodeaux MD PT1 12/06/2024 Telephone C MEDICINE [address] [place] [address] Nicky Thibodeaux MD 11/24/2024 Refill [facility] [address] [place] [address] Nicky Thibodeaux MD Pain 11/16/2024 Refill [facility] [address] [place] [address] Nicky Thibodeaux MD Pain 11/16/2024 Refill [facility] [address] [place] [address] Chelsi Canseco ANP Pain 11/14/2024 Refill [facility] [address] [place] [address] Angie Eli MD Osteoarthritis of hip, unspecified laterality, unspecified osteoarthritis type; Pain 10/26/2024 Refill [facility] [address] [place] [address] Nicky Thibodeaux MD Pain 10/17/2024 Refill [facility] [address] [place] [address] Nicky Thibodeaux MD Osteoarthritis of hip, unspecified laterality, unspecified osteoarthritis type; Pain 10/12/2024 Telephone [facility] [address] [place] [phone] Nicky Thibodeaux MD pt1 09/30/2024 Orders Only [facility] [address] [place] [phone] Nicky Thibodeaux MD 09/28/2024 Refill [facility] [address] [place] [phone] Nicky Thibodeaux MD Chronic migraine without aura without status migrainosus, not intractable; Pain 09/28/2024 Refill [facility] [address] [place] [phone] Deborah Stratton MD Pain 09/15/[address] [address] Nicky Thibodeaux MD Appointment Request 09/14/2024 11:30 AM EDT Telemedicine [address] [address] Nicky Thibodeaux MD Cervical high risk HPV (human papillomavirus) test positive (Primary Dx); Depression with anxiety; Tobacco dependence syndrome; Class 2 severe obesity due to excess calories with serious comorbidity and body mass index (BMI) of 35.0 to 35.9 in adult ([facility]); Dietary counseling; Exercise counseling; Chronic obstructive pulmonary disease, unspecified COPD type ([facility]) 09/14/2024 Travel 09/14/2024 Telephone [facility] [address] [place] [phone] Nicky Thibodeaux MD fyi 09/13/[address] [phone] Nicky Thibodeaux MD Chart Prep Tele from Last 3 Months Immunizations Immunization Administration Dates Next Due Influenza, IIV3, injectable 04/05/2014 Influenza, Split (incl. valencia fied surface antigen) 12/29/2012,01/19/2012 Pneumococcal Polysaccharide PPSV23 04/05/2014 Tdap 05/28/2024,09/03/2022,05/07/2011 Social History Tobacco Use Types Packs/Day Years [...] 91 03/14/2024 10:52 AM EST Temperature 36.2 C (97.1 F) 03/14/2024 10:52 AM EST Respiratory Rate 15 03/14/2024 10:52 AM EST Oxygen Saturation 96% 03/14/2024 10:52 AM EST Inhaled Oxygen Concentration - - Weight 87.1 kg (192 lb) 09/14/2024 12:15 PM EDT Height 167.6 cm (5' 6 ) 12/15/2022 9:25 AM EDT Body Mass Index 30.99 12/15/2022 9:25 AM EDT Plan of Treatment Health Maintenance Due Date Last Done Comments CT Colonography 1965 FIT DNA/Cologuard 1965 FIT 1965 FOBT 1965 Sigmoidoscopy 1965 Disability Screening 1965 Hepatitis B Vaccines (1 of 3 - 19+ 3-dose series) 1984 Pneumococcal Vaccine: 50+ Years (2 of 2 - PCV) 04/05/2015 04/05/2014 Zoster Vaccines (1 of 2) 07/21/2015 Dental Oral Exam 08/03/2018 02/01/2018, , 04/30/2010 Dental X-Ray: Bitewings 02/02/2019 02/01/2018, 12/02 Dental Prophylaxis 10/05/2021 04/05/2021 Cervical Cancer Screening 09/11/2022 HPV/Cotest 09/11/2022 08/02/2021 Pap Smear 09/11/2022 08/02/2021, 08/02/2021 COVID-19 Vaccine ( season) 2023 Depression Monitoring 09/11/2024 03/14/2024, 024 SDOH Screening 11/08/2024 11/09/2023 Influenza Vaccine (#1) 2024 4, 12/29/2012, 01/19/2012 Alcohol/Substance Use Screening 03/14/2025 03/14/2024 Tobacco Screening 09/14/2025 09/14/2024 Colonoscopy 12/10/2025 12/11/2015 Colorectal Cancer Screening 12/10/2025 Mammogram 09/30/2026 09/30/2024, 07/20, 10/29/2020, Additional history exists Dental X-Ray: Full Mouth 01/29/2027 01/29/2024, 11/18 [...] Procedure Name Priority Date/Time Associated Diagnosis Comments BI MAMMOGRAM SCREENING TOMOSYNTHESIS BILATERAL Routine 09/30/2024 2:45 PM EDT PANORAMIC RADIOGRAPHIC IMAGE Routine 01/29/2024 3:30 PM EDT LIPID PANEL, STANDARD Routine 07/17/2023 10:24 AM [...] Results * BI Mammogram Screening Tomosynthesis Bilateral (09/30/2024 2:45 PM EDT) Anatomical Region Laterality Modality Breast Bilateral Mammography 09/30/2024 2:45 PM EDT Narrative 10/08/2024 8:50 PM EDT [facility] [address] [place] [address] Mammography Report Signed Patient: Darcy Medina MR#: [id number] : 1965 Acct:[id number] Age/Sex: 59 / F ADM Date: 09/30/24 Loc: HO.MAMMO Attending Dr: Nicky Thibodeaux MD Ordering Physician: Nicky Thibodeaux MD Results: 2B enign Findings Date of Service: 09/30/24 Follow Up: 1 Year From [facility] Mammogram Procedure(s): MM tomosynthesis screening BI Accession Number(s): [id number] cc: Nicky Thibodeaux MD EXAMINATION: MM SCREENING DIGITAL BREAST TOMOSYNTHESIS, BILATERAL CLINICAL INFORMATION: Screening. Asymptomatic. COMPARISON: Mammography: Comparison is made with available priors TECHNIQUE: Digital breast mammography with tomosynthesis is performed in both the craniocaudal and mediolateral oblique views along with computer-aided detection (CAD). FINDINGS: There are scattered areas of fibroglandular density (ACR BI-RADS breast composition Category b). Left breast marker clips. There are no significant masses, abnormal calcifications, or other abnormalities. MM/MM tomosynthesis screening BI IMPRESSION: No mammographic evidence of malignancy. ASSESSMENT: BI-RADS BI-RADS 2 - Benign Findings RECOMMENDATION: Routine annual mammography screening. 1 year F/U This examination should not preclude the clinical evaluation of a suspicious palpable abnormality. This patient's information was entered into a reminder system with a target due date for their next mammogram. Electronically signed by: Eliza Rivera DO 10/08/2024 08:47 PM EDT Dictated By: Eliza Rivera DO Signed By: <Electronically signed by Eliza Rivera DO in OV> 10/08/24 2047 DD/ 1445 TD/TT: 09/30/24 1500 Certified Anesthesiologist Assistant: Procedure Note Donotuseinterpreter, Image - 10/08/2024 [facility] [address] [place], [place] [address] Mammography Report Signed Patient: Darcy Medina FMR#: [id number] : 1965Acct:[id number] Age/Sex: 59 / FADM Date: 09/30/24 Loc: HO.MAMMO Attending Dr: Nicky Thibodeaux MD Ordering Physician: Nicky Thibodeaux MDResults: 2B enign Findings Date of Service: 09/30/24Follow Up: 1 Year From Orig inal Mammogram Procedure(s): MM tomosynthesis screening BI Accession Number(s): [id number] cc: Nicky Thibodeaux MD EXAMINATION: MM SCREENING DIGITAL BREAST TOMOSYNTHESIS, BILATERAL CLINICAL INFORMATION: Screening. Asymptomatic. COMPARISON: Mammography: Comparison is made with available priors TECHNIQUE: Digital breast mammography with tomosynthesis is performed in both the craniocaudal and mediolateral oblique views along with computer-aided detection (CAD). FINDINGS: There are scattered areas of fibroglandular density (ACR BI-RADS breast composition Category b). Left breast marker clips. There are no significant masses, abnormal calcifications, or other abnormalities. MM/MM tomosynthesis screening BI IMPRESSION: No mammographic evidence of malignancy. ASSESSMENT: BI-RADS BI-RADS 2 - Benign Findings RECOMMENDATION: Routine annual mammography screening. 1 year F/U This examination should not preclude the clinical evaluation of a suspicious palpable abnormality. This patient's information was entered into a reminder system with a target due date for their next mammogram. Electronically signed by: Eliza Rivera DO 10/08/2024 08:47 PM EDT RP Dictated By: Eliza Rivera DO Signed By: <Electronically signed by Eliza Rivera DO in OV> 10/08/242046 DD/ 1445 TD/TT: 09/30/24 1500 Certified Anesthesiologist Assistant: Nicky Thibodeaux MD IMG BI PROCEDURES Edited R esult - Final * (ABNORMAL) Lipid Panel, Standard (07/17/2023 10:24 AM EDT) Triglycerides 168(H) <150 mg/dL [facility] Comment:Desirable Triglyceri de: less than 150 mg/dLBorderline High Triglyceride 150-199 mg/dLHigh Triglyceride: 200-499 mg/dLVery High Triglyceride: greater than or equal to 5OO mg/dL Cholesterol 219(H) <200 mg/dL [facility] Comment:Desirable Cholestero l: less than 200 mg/dLBorderline High Cholesterol: 200-239 mg/dLHigh Cholesterol: greater than 239 mg/dL LDL Cholesterol Calculated 137(H) <100 mg/dL [facility] Comment:Desirable LDL: less than 100 mg/dLNear Optimal/Above Optimal LDL: 110- 129 mg/dLBorderline High LDL: 130-159 mg/dLHigh LDL: 160-189 mg/dLVery High LDL: greater than or equal to 190 mg/dL HDL Cholesterol 49 >40 mg/dL [facility] Comment:Desirable HDL: great er than 40 mg/dL Note: This HDL assay may give artificially low results in patients with liver disease. Blood Venous blood specimen / Unknown 07/17/2023 10:24 AM EDT 07/17/2023 11:19 AM EDT Nicky Thibodeaux MD LAB BLOOD ORDERABLES Final Result [facility] [address] [place] [phone] * Hepatitis C Antibody with Reflex to HCV, RNA, Quantitative, Real-Time PCR (09/03/2022 11:58 AM EDT) Hepatitis C Antibody NON-REACT DILLNO NON-REACT DILLON [facility] Index 0.02 <1.00 [facility] Comment: HCV antibody was non-reactive. There is no laboratory evidence of HCV infection. In most cases, no further action is required. However, if recent HCV exposure is suspected, a test for HCV RNA (test code 66531) is suggested. For additional information please refer to http://Contactually.[employer]/faq/LPD70e0 (This link is being provided for informational/ educational purposes only.) Blood Venous blood specimen / Unknown 09/03/2022 11:58 AM EDT 09/03/2022 11:58 AM EDT Narrative [facility] - 09/07/2022 11:33 PM EDT FASTING:YES FASTING: YES Nicky Thibodeaux MD LAB BLOOD ORDERABLES Final Result [facility] [address], [place] [address] [facility] [address] [place] [address] * HIV-1/2 Antigen and Antibodies, Fourth Generation, with Reflexes (09/03/2022 11:58 AM EDT) Pathologist [facility] HIV Antigen/Antibody, 4th Generation NON-REAC TIVE NON-REAC TIVE [facility] Comment: HIV-1 antigen and HIV-1/HIV-2 antibodies were not detected. There is no laboratory evidence of HIV infection. PLEASE NOTE: This information has been disclosed to you from records whose confidentiality may be protected by state law. If your state requires such protection, then the state law prohibits you from making any further disclosure of the information without the specific written consent of the person to whom it pertains, or as otherwise permitted by law. A general authorization for the release of medical or other information is NOT sufficient for this purpose. For additional information please refer to http://Contactually.[employer]/faq/RFP191 (This link is being provided for informational/ educational purposes only.) The performance of this assay has not been clinically validated in patients less than 2 years old. Blood Venous blood specimen / Unknown 09/03/2022 11:58 AM EDT 09/03/2022 11:58 AM EDT Narrative [facility] - 09/07/2022 11:33 PM EDT FASTING:YES FASTING: YES Nicky Thibodeaux MD LAB BLOOD ORDERABLES Final Result [facility] [address] [place] [address], [place] [address] [facility] [address] [place] [phone] * (ABNORMAL) THINPREP TIS PAP AND HPV mRNA E6/E7, CT/NG, TRICH (08/02/2021 11:49 AM EDT) Chlamydia trachomatis RNA, TMA, Urogenital NOT DETECTED NOT DETECTED [facility] Clinical Information: None given [facility] COMMENT SEE COMMENT [facility] Comment: The analytical performance characteristics of this assay, when used to test SurePath(TM) specimens have been determined by [facility]. The modifications have not been cleared or approved by the FDA. This assay has been validated pursuant to the CLIA regulations and is used for clinical purposes. For additional information, please refer to https://education.[employer] [employer]/faq/HWH388 (This link is being provided for information/ educational purposes only.) COMMENT SEE COMMENT [facility] Comment: EXPLANATORY NOTE: The Pap is a screening test for cervical cancer. It is not a diagnostic test and is subject to false negative and false positive results. It is most reliable when a satisfactory sample, regularly obtained, is submitted with relevant clinical findings and history, and when the Pap result is evaluated along with historic and current clinical information. COMMENT: This Pap test has been evaluated with computer assisted technology. [facility] Machine Leather Trimmer: SEE COMMENT [facility] Comment: DCR, CT(ASCP) CT screening location: [facility] [address] [address] HPV nRNA E6/E7 Detected(A) Not Detected [facility] Comment: Methodology: Life Science Research Assistant-Mediated Amplification This assay detects E6/E7 viral messenger RNA (mRNA) from 14 high-risk HPV types (16,18,31,33,35,39,45,51,52,56,58,59,66,68). The analytical performance characteristics of this assay have been determined by [employer]. The modifications have not been cleared or approved by the FDA. This assay has been validated pursuant to the CLIA regulations and is used for clinical purposes. For additional information, please refer to http://education.[employer] Software/faq/ULZ810i7 (This link if provided for information/ educational [...] NONE GIVEN [facility] Review Machine Leather Trimmer: SEE COMMENT [facility] Comment: JXM, CT(ASCP) CT screening location: [place] [address] SOURCE: None given [facility] Statement Of Adequacy: SATISFACTORY FOR EVALUATION [facility] Trichomonas vaginalis, QL, TMA, PAP Vial NOT DETECTED NOT DETECTED [facility] Comment: The analytical performance characteristics of this assay have been determined by [employer]. The modifications have not been cleared or approved by the FDA. This assay has been validated pursuant to the CLIA regulations and is used for clinical purposes. For additional information, please refer to http://education.[employer]/ faq/Trichomonastma (This link is being provided for information/ educational purposes only.) 08/02/2021 11:4 9 AM EDT Nicky Thibodeaux MD LAB PATHOLOGY ORDERABLES F inal Result [facility] [address] [place] [address], * Pap Smear (08/02/2021 12:00 AM EDT) Swab Nicky Thibodeaux MD LAB CYTOLOGY ORDERABLES Fi nal Result [facility] [address] [place] [address] [phone] * Hm Colonoscopy (12/11/2015) [facility] Signature Colonoscopy normal with Dr. Delgado Historical Provider HEALTH MAINTENANCE Final Result from Last 3 Months or Most Recently Relevant to Health Maintenance Insurance [facility] STANDARD Advance Directives Documents on File Type Date Recorded Patient [employer] Thread Winder Expl anation Advance Directives and Living Will 07/17/2023 Health Care Proxy 07/17/23 Care Teams Regional Service Manager Relationship Specialty Start Date End Date Summers, MD Nicky [address] [place], [place] PCP - General Family Medicine 04/20/18 Wu Manzo MD [address] [place] [address] Pain Medicine 03/29/24 Feroz Ascencio MD [address] [place] [phone] Orthopaedic Surgery 06/15/24 Rolanda Tirado Lay Out InspectorCounselor Dormitory 06/25/23 Latia Guardado PA-C [facility] 04/26/24
--- OUTSIDE RECORDS SUMMARY | 2024-12-13 06:17 | XMS_ITS | Encounter Summary ---
Author Organization [employer] Address [address] [facility] 7t [place] [address] Care Team Providers Care Ict Teacher Name Role Phone Nicky Thibodeaux MD Primary Care Provider [phone]- [phone] Wu Manzo MD Unavailable Feroz Ascencio MD Unavailable [phone] Reason for Visit * Reason Onset Date Comments Nurse Triage 05/11/2024 Encounter Details Date Type Department Care Team (Late st Contact Info) Description 05/11/2024 Telephone [facility] MEDICINE [address] [place] [address] Nicky Thibodeaux MD [address] [place] [address] Nurse Triage Social History Tobacco Use Types [...] or Thursday.Pt wants appt on Thursday when BEAD FILLER is available to bring pt. Reviewed [facility] operating hours and that wait times vary. Unable to book sick on site > 48 hours. Pt advised can call back on Thursday for Thursday scheduled. Reviewed home care advise, ER precautions and reasons to call back. Protocol Used: Dizziness (Adult) Protocol-Based Disposition: Discuss with PCP and Callback by Nurse Today Sent to PCP and [place] team Primary care nurses for follow up [...] documented as of this encounter Care Teams Ict Teacher Relationship Specialty Start Date End Date Nicky Thibodeaux MD [address] [place] [address] PCP - General Family Medicine 04/20/18 Wu Manzo MD 10 [facility] [address] [place] [address] Pain Medicine 03/29/24 Feroz Ascencio MD [address] [place] [phone] Orthopaedic Surgery 06/15/24 Rolanda Tirado Fisher SpearVentilated Rib Fitter 06/25/23 Latia Guardado PA-C [facility] 04/26/24 documented as of this encounter
== END 2024-12-13 06:12 | disposition home or self-care (01) ==
LOC: CF 06:11
PROVIDERS: Visit Provider Anesthesiology
DX: Z13.89 Encounter for screening for other disorder (principal)

== ENCOUNTER 2024-12-26 10:02 | Outpatient (REF) | payer MEDICAID, SELFPAY ==
[2024-12-26 11:22] LABS: MANUAL DIFF FLAG NO
[2024-12-26 11:30] LABS: Hematocrit 35.8 % (37.0-47.0); Hemoglobin 11.4 g/dl (12.0-16.0); Imm Gran Abs Auto 0.02 X10*3/uL (0.00-0.03); Imm Gran Pct Auto 0.2 % (0.0-0.4); Lymphocytes Absolute Auto 2.0 X10*3/uL (1.2-4.9); Mean Corpuscular HGB Conc 31.8 g/dl (31.0-35.0); Mean Corpuscular Hemoglobin 28.1 pg (27.0-33.0); Mean Corpuscular Volume 88.4 fL (80.0-98.0); NRBC Abs Auto 0.000 X10*3/uL (0.0-0.012); NRBC Pct Auto 0.0 /100WBC (0.0-0.2); Platelet Count 281 X10*3/uL (160-400); Red Blood Count 4.05 X10*6/uL (4.20-5.50); White Blood Count 8.3 X10*3/uL (4.8-10.8)
--- OUTSIDE RECORDS SUMMARY | 2024-12-26 11:50 | XMS_ITS | Encounter Summary ---
Author Organization [employer] Address [address] [facility] [address] 7t [place] [address] Care Team Providers Care Healthcare Social Worker Name Role Phone Nicky Thibodeaux MD Primary Care Provider [phone]- [phone] Wu Manzo MD Unavailable Feroz Ascencio MD Unavailable [phone] Encounter Details Date Type Department Care Team (Late st Contact Info) Description 03/11/2023 Abstract [facility] MEDICINE [address] [place], [place] [phone] Thuy Valenzuela Social History Tobacco Use Types [...] Care Team (Late st Contact Info) Description 12/28/2024 4:00 PM EDT Office Visit [facility] MEDICINE [address] [place] [address] Nicky Thibodeaux MD [address] [place] [address] documented as of this encounter Visit Diagnoses Not on filedocumented in this encounter Additional Health Concerns Assessment Noted Time PHQ-9 Depression Total Score: 22 023 2:09 PM EDT documented as of this encounter Care Teams Healthcare Social Worker Relationship Specialty Start Date End Date Nicky Thibodeaux MD [address] [place] [address] PCP - General Family Medicine 04/20/18 Wu Manzo MD [address] [facility] [address] [place] [address] Pain Medicine 03/29/24 Feroz Ascencio MD [address] [place] [phone] Orthopaedic Surgery 06/15/24 Rolanda Tirado Federal Java DeveloperPeoplesoft Hcm Developer 06/25/23 Latia Guardado PA-C [facility] 04/26/24 documented as of this encounter
--- OUTSIDE RECORDS SUMMARY | 2024-12-26 11:50 | XMS_ITS | Encounter Summary ---
Author Organization [employer] Address 75 [facility] 7t [place] [address] Care Team Providers Care Volunteer Fire Fighter Name Role Phone Nicky Thibodeaux MD Primary Care Provider [phone]- [phone] Wu Manzo MD Unavailable Feroz Ascencio MD Unavailable [phone] Reason for Visit * Reason Comments Med Refill Encounter Details Date Type Department Care Team ([facility] Contact Info) Description 08/26/2022 Refill [facility] MED & PEDS [address] [place] [address] Nicky Thibodeaux MD [address] [place] [address] Pain Social History Tobacco Use Types Packs/Day [...] Upcoming Encounters Date Type Department Care Team ([facility] Contact Info) Description 12/28/2024 4:00 PM EDT Office Visit [facility] MEDICINE 230 [place] [address] Nicky Thibodeaux MD [address] [place] [address] documented as of this encounter Visit Diagnoses Diagnosis Pain Generalized pain documented in this encounter Additional Health Concerns Assessment Noted Time PHQ-9 Depression Total Score: 22 023 2:09 PM EDT documented as of this encounter Care Teams Volunteer Fire Fighter Relationship Specialty Start Date End Date Nicky Thibodeaux MD [address] [place] [address] PCP - General Family Medicine 04/20/18 Wu Manzo MD [address] [place] [address] [place] [address] Pain Medicine 03/29/24 Feroz Ascencio MD [address] [place] [phone] Orthopaedic Surgery 06/15/24 Rolanda Tirado Case CheckerHedis Nurse 06/25/23 TREASURE [facility] 04/26/24 documented as of this encounter
--- OUTSIDE RECORDS SUMMARY | 2024-12-26 11:50 | XMS_ITS | Encounter Summary ---
Author Organization [employer] Address [address] [facility] 7t [place] [address] Care Team Providers Care Waiter/Waitress Captain Name Role Phone Nicky Thibodeaux MD Primary Care Provider [phone]- [phone] Wu Manzo MD Unavailable Feroz Ascencio MD Unavailable [phone] Reason for Visit * Reason Onset Date Comments Med Refill 04/29/2023 Encounter Details Date Type Department Care Team (Late st Contact Info) Description 04/29/2023 Telephone [facility] MEDICINE [address] [place] [address] Nicyk Thibodeaux MD [address] [place] [address] Med Refill Social History Tobacco Use Types [...] 500 MG tablet To be sent to: [facility]/pharmacy [address] [place] [address] documented in this encounter Plan of Treatment Upcoming Encounters Date Type Department Care Team (Late st Contact Info) Description 12/28/2024 4:00 PM EDT Office Visit [facility] MEDICINE [address] [place] [address] Nicky Thibodeaux MD [address] [place] [address] documented as of this encounter Visit Diagnoses Not on filedocumented in this encounter Additional Health Concerns Assessment Noted Time PHQ-9 Depression Total Score: 22 023 2:09 PM EDT documented as of this encounter Care Teams Waiter/Waitress Captain Relationship Specialty Start Date End Date Nicky Thibodeaux MD [address] [place] [address] PCP - General Family Medicine 04/20/18 Wu Manzo MD [address] [facility] [address] [place] [address] Pain Medicine 03/29/24 Feroz Ascencio MD [address] [place] [phone] Orthopaedic Surgery 06/15/24 Rolanda Tirado Bobbin HandlerResearch Archaeologist 06/25/23 TREASURE [facility] 04/26/24 documented as of this encounter
--- OUTSIDE RECORDS SUMMARY | 2024-12-26 11:50 | XMS_ITS | Encounter Summary ---
Author Organization [employer] Address 75 [facility] 7t [place] [address] Care Team Providers Care Light Rail Vehicle Operator Name Role Phone Nicky Thibodeaux MD Primary Care Provider [phone]- [phone] Wu Manzo MD Unavailable Feroz Ascencio MD Unavailable [phone] Reason for Visit * Reason Onset Date Comments Durable Medical Equipment 08/07/2022 Encounter Details Date Type Department Care Team (Late st Contact Info) Description 08/07/2022 Telephone [facility] MEDICINE [address] [place] [address] Nicky Thibodeaux MD [address] [place] [address] Durable Medical Equipment Social History Tobacco Use [...] - 08/14/2022 9:23 AM EDT Tc from [facility] requesting status on a form send over for [facility]. Please contact Renzo at [phone] * Telephone Encounter - Wellington Smith - 08/07/2022 9:57 AM EDT Tc from [facility] with [facility] requesting a status on a form sent over for a [facility] Grab bar. Please contact renzo at [phone] documented in this encounter Plan of Treatment Upcoming Encounters Date Type Department Care Team (Late st Contact Info) Description 12/28/2024 4:00 PM EDT Office Visit [facility] MEDICINE [address] [place] [address] Nicky Thibodeaux MD [address] [place] [address] documented as of this encounter Visit Diagnoses Not on filedocumented in this encounter Additional Health Concerns Assessment Noted Time PHQ-9 Depression Total Score: 22 023 2:09 PM EDT documented as of this encounter Care Teams Light Rail Vehicle Operator Relationship Specialty Start Date End Date Nicky Thibodeaux MD [address] [place] [address] PCP - General Family Medicine 04/20/18 Wu Manzo MD [address] [place] [address] Drive [address] [place] [address] Pain Medicine 03/29/24 Freoz Ascencio MD [address] [place] [phone] Orthopaedic Surgery 06/15/24 Rolanda Tirado Boom Crane OperatorCongressional Representative 06/25/23 TREASURE [facility] 04/26/24 documented as of this encounter
--- OUTSIDE RECORDS SUMMARY | 2024-12-26 11:50 | XMS_ITS | Encounter Summary ---
Author Organization [employer] Address [address] [place] [address] 7t [place] [address] Care Team Providers Care Shank Stapler Name Role Phone Nicky Thibodeaux MD Primary Care Provider [phone]- [phone] Wu Manzo MD Unavailable Feroz Ascencio MD Unavailable [phone] Reason for Visit * Reason Comments Med Refill Encounter Details Date Type Department Care Team (Late st Contact Info) Description 12/11/2022 Refill [facility] MEDICINE [address] [place] [address] [phone] Nicky Thibodeaux MD [address] [place] [phone] Social History Tobacco Use Types Packs/Day Years [...] Department Care Team (Late Contact Info) Description 12/28/2024 4:00 PM EDT Office Visit [facility] MEDICINE [address] [place] [address] [phone] Nicky Thibodeaux MD [address] [place] [phone] documented as of this encounter Visit Diagnoses Not on filedocumented in this encounter Additional Health Concerns Assessment Noted Time PHQ-9 Depression Total Score: 22 023 2:09 PM EDT documented as of this encounter Care Teams Shank Stapler Relationship Specialty Start Date End Date Nicky Thibodeaux MD [address] [place] [address] PCP - General Family Medicine 04/20/18 Wu Manzo MD [address] [place] [address] [place] [address] Pain Medicine 03/29/24 Feroz Ascencio MD [address] [place] [phone] Orthopaedic Surgery 06/15/24 Rolanda Tirado Programming EngineerVisitor Services Specialist 06/25/23 TREASURE [facility] 04/26/24 documented as of this encounter
--- OUTSIDE RECORDS SUMMARY | 2024-12-26 11:50 | XMS_ITS | Encounter Summary ---
Author Organization [employer] Address 75 [facility] 7t [place] [address] Care Team Providers Care Security Patrol Officer Name Role Phone Nicky Thibodeaux MD Primary Care Provider [phone]- [phone] Wu Manzo MD Unavailable Ferzo Ascencio MD Unavailable [phone] Encounter Details Date Type Department Care Team (Late Contact Info) Description 08/12/2022 Orders Only [facility] MEDICINE [address] [place] [address] Nicky Thibodeaux MD [address] [place] [address] Social History Tobacco Use Types Packs/Day Years [...] Upcoming Encounters Date Type Department Care Team ([facility] Contact Info) Description 12/28/2024 4:00 PM EDT Office Visit [facility] MEDICINE 230 [place] [address] Nicky Thibodeaux MD 230 [place] [address] documented as of this encounter Visit Diagnoses Not on filedocumented in this encounter Additional Health Concerns Assessment Noted Time PHQ-9 Depression Total Score: 22 023 2:09 PM EDT documented as of this encounter Care Teams Security Patrol Officer Relationship Specialty Start Date End Date Nicky Thibodeaux MD 230 [place] [address] PCP - General Family Medicine 04/20/18 Wu Manzo MD [address] [place] [address] [address] [place] [address] Pain Medicine 03/29/24 Feroz Ascencio MD [address] [place] [phone] Orthopaedic Surgery 06/15/24 Rolanda Tirado Appeals AssistantInteractive Video Technician 06/25/23 TREASURE [facility] 04/26/24 documented as of this encounter
--- OUTSIDE RECORDS SUMMARY | 2024-12-26 11:50 | XMS_ITS | Encounter Summary ---
Author Organization [employer] Address [address] [facility] [address] 7t [place] [address] Care Team Providers Care Solutions Delivery Consultant Name Role Phone Nicky Thibodeaux MD Primary Care Provider [phone]- [phone] uW Manzo MD Unavailable Feroz Ascencio MD Unavailable [phone] Reason for Visit * Reason Onset Date Comments PA 10/12/2023 Encounter Details Date Type Department Care Team (Late st Contact Info) Description 10/12/2023 Telephone [facility] MEDICINE [address] [place] [address] Nicky Thibodeaux MD 230 [place] [address] PA Social History Tobacco Use Types Packs/Day [...] Description 12/28/2024 4:00 PM EDT Office Visit [facility] MEDICINE [address] [place] [address] Nicky Thibodeaux MD [address] [place] [address] documented as of this encounter Visit Diagnoses Not on filedocumented in this encounter Additional Health Concerns Assessment Noted Time PHQ-9 Depression Total Score: 22 023 2:09 PM EDT documented as of this encounter Care Teams Solutions Delivery Consultant Relationship Specialty Start Date End Date Nicky Thibodeaux MD [address] [place] [address] PCP - General Family Medicine 04/20/18 Wu Manzo MD [address] [facility] [address] [place] [address] Pain Medicine 03/29/24 Feroz Ascencio MD [address] [place] [phone] Orthopaedic Surgery 06/15/24 Rolanda Triado FloorwalkerDecoration Checker 06/25/23 TREASURE [facility] 04/26/24 documented as of this encounter
--- OUTSIDE RECORDS SUMMARY | 2024-12-26 11:50 | XMS_ITS | Encounter Summary ---
Author Organization [employer] Address [address] [place] [address] 7t [place] [address] Care Team Providers Care Funeral Location Manager Name Role Phone Nicky Thibodeaux MD Primary Care Provider [phone]- [phone] Wu aMnzo MD Unavailable Feroz Ascencio MD Unavailable [phone] Reason for Visit * Reason Comments Med Refill Encounter Details Date Type Department Care Team (Late Contact Info) Description 2022 Refill [facility] [address] [place] [address] Krystin Frederick, GRACIELA Chronic migraine without aura [...] Description 12/28/2024 4:00 PM EDT Office Visit [facility] MEDICINE [address] [place], [place] [phone] Nicky Thibodeaux MD 230 [place] [address] documented as of this encounter Visit Diagnoses Diagnosis Chronic migraine without aura without status migrainosus, not intractable documented in this encounter Care Teams Funeral Location Manager Relationship Specialty Start Date End Date Nicky Thibodeaux MD [address] [place] [address] PCP - General Family Medicine 04/20/18 Wu Manzo MD [address] [place] [address] Drive [address] [place] [address] Pain Medicine 03/29/24 Feroz Ascencio MD [address] [place] [phone] Orthopaedic Surgery 06/15/24 Rolanda Tirado Supervisor Lace TearingPlant Engineering Manager 06/25/23 TREASURE [facility] 04/26/24 documented as of this encounter
--- OUTSIDE RECORDS SUMMARY | 2024-12-26 11:50 | XMS_ITS | Encounter Summary ---
Author Organization [employer] Address [address] [facility] [address] 7t [place] [address] Care Team Providers Care Wire Wrapper Machine Operator Name Role Phone Nicky Thibodeaux MD Primary Care Provider [phone]- [phone] Wu Manzo MD Unavailable Feroz Ascencio MD Unavailable [phone] Encounter Details Date Type Department Care Team (Late st Contact Info) Description 2023 Orders Only [facility] MEDICINE [address] [place], [place] [phone] Nicky Thibodeaux MD 230 [place] [address] Social History Tobacco Use Types Packs/Day Years [...] Description 12/28/2024 4:00 PM EDT Office Visit [facility] MEDICINE [address] [place] [address] Nicky Thibodeaux MD [address] [place] [address] documented as of this encounter Visit Diagnoses Not on filedocumented in this encounter Additional Health Concerns Assessment Noted Time PHQ-9 Depression Total Score: 22 023 2:09 PM EDT documented as of this encounter Care Teams Wire Wrapper Machine Operator Relationship Specialty Start Date End Date Nicky Thibodeaux MD [address] [place] [address] PCP - General Family Medicine 04/20/18 Wu Manzo MD [address] [place] [address] Pain Medicine 03/29/24 Feroz Ascencio MD [address] [place] [phone] Orthopaedic Surgery 06/15/24 Rolanda Tirado Pipe ChipperAirframe And Power Plant Mechanic 06/25/23 TREASURE [facility] 04/26/24 documented as of this encounter
--- OUTSIDE RECORDS SUMMARY | 2024-12-26 11:50 | XMS_ITS | Encounter Summary ---
Author Organization [employer] Address [address] 7t [place] [address] Care Team Providers Care New Autos Delivery Driver Name Role Phone Nicky Thibodeaux MD Primary Care Provider [phone]- [phone] Wu Manzo MD Unavailable Feroz Ascencio MD Unavailable [phone] Encounter Details Date Type Department Care Team (Late st Contact Info) Description 12/26/2024 Orders Only GENERIC EXTERNAL DATA DEPARTMENT Provider, Generic External Data Social History Tobacco Use Types Packs/Day Years [...] Description 12/28/2024 4:00 PM EDT Office Visit [facility] [address] [place], [place] [phone] Nicky Thibodeaux MD [address] [place] [address] documented as of this encounter Procedures Procedure Name Priority Date/Time Associated Diagnosis Comments CBC WITH AUTO DIFFERENTIAL Routine 12/26/2024 10:08 AM EDT documented in this encounter Results * (ABNORMAL) CBC auto differential (12/26/2024 10:08 AM EDT) White Blood Count 8.3 4.8 - 10.8 X10*3/uL [facility] Red Blood Count 4.05(L) 4.20 - 5.50 X10*6/uL [facility] Hemoglobin 11.4(L) 12.0 - 16.0 g/dl [facility] Hematocrit 35.8(L) 37.0 - 47.0 % [facility] Mean Corpuscular Volume 88.4 80.0 - 98.0 fL [facility] Mean Corpuscular Hemoglobin 28.1 27.0 - 33.0 pg [facility] Mean Corpuscular HGB Conc 31.8 31.0 - 35.0 g/dl [facility] Red Cell Distribution Width 14.3 11.0 - 16.0 % [facility] Platelet Count 281 160 - 400 X10*3/uL [facility] Mean Platelet Volume 10.8 9.4 - 12.3 fL [facility] Neutrophils Percent Auto 67.5 45 - 73 % [facility] Imm Gran Pct Auto 0.2 0.0 - 0.4 % [facility] Lymphocytes Percent Auto 23.6 20 - 40 % [facility] Monocytes Percent Auto 6.9 2 - 11 % [facility] Eosinophils Percent Auto 1.2 0 - 4 % [facility] Basophils Percent Auto 0.6 0 - 2 % [facility] NRBC Pct Auto 0.0 0.0 - 0.2 /100WBC [facility] Neutrophils Absolute Auto 5.6 2.0 - 8.3 x10*3/uL [facility] Imm Gran Abs Auto 0.02 0.00 - 0.03 X10*3/uL [facility] Lymphocytes Absolute Auto 2.0 1.2 - 4.9 X10*3/uL [facility] Monocytes Absolute Auto 0.6 0.1 - 1.2 X10*3/uL [facility] Eosinophils Absolute Auto 0.1 0.0 - 0.4 X10*3/uL [facility] Basophils Absolute Auto 0.1 0.0 - 0.2 X10*3/uL [facility] NRBC Abs Auto 0.000 0.0 - 0.012 X10*3/uL [facility] 12/26/2024 10:0 8 AM EDT 12/26/2024 11:16 AM EDT us Generic External Data Provider LAB BLOOD ORDERAB LES Final Result [facility] [address] [place] [phone] documented in this encounter Visit Diagnoses Not on filedocumented in this encounter Additional Health Concerns Assessment Noted Time PHQ-9 Depression Total Score: 14 024 10:51 AM EST documented as of this encounter Care Teams New Autos Delivery Driver Relationship Specialty Start Date End Date Nicky Thibodeaux MD [address] [place] [address] PCP - General Family Medicine 04/20/18 Wu Manzo MD [address] [place] [address] Drive [address] [place] [phone] Pain Medicine 03/29/24 Feroz Ascencio MD [address] [place] [phone] Orthopaedic Surgery 06/15/24 Rolanda Tirado Laborer/Key ManAssistant Professor Of Art 06/25/23 TREASURE [facility] 04/26/24 documented as of this encounter
--- OUTSIDE RECORDS SUMMARY | 2024-12-26 11:50 | XMS_ITS | Encounter Summary ---
Author Organization [employer] Address [address] [facility] 7t [place] [address] Care Team Providers Care Clinical Specialist Vascular Name Role Phone Loving, Nicky CASTAÑEDA Primary Care Provider [phone]- [phone] Wu Manzo MD Unavailable Feroz Ascencio MD Unavailable [phone] Reason for Visit * Reason Onset Date Comments Medication Question 12/11/2022 Encounter Details Date Type Department Care Team (Late st Contact Info) Description 12/11/[address] [facility] [address] [place] [address] Chelsi Canseco ANP [address] [place] [address] Medication Question Social History Tobacco Use Types [...] 12/28/2024 4:00 PM EDT Office Visit [facility] [address] [place] [address] Nicky Thibodeaux MD [address] [place] [address] documented as of this encounter Visit Diagnoses Diagnosis Essential (primary) hypertension Unspecified essential hypertension documented in this encounter Additional Health Concerns Assessment Noted Time PHQ-9 Depression Total Score: 22 023 2:09 PM EDT documented as of this encounter Care Teams Clinical Specialist Vascular Relationship Specialty Start Date End Date Nicky Thibodeaux MD [address] [place] [address] PCP - General Family Medicine 04/20/18 Wu Manzo MD [address] [place] [address] Drive [address] [place] [address] Pain Medicine 03/29/24 Feroz Ascencio MD [address] [place] [phone] Orthopaedic Surgery 06/15/24 Rolanda Tirado Rail Track LayerFisher Quahog 06/25/23 Latia Guardado PA-C [facility] 04/26/24 documented as of this encounter
--- OUTSIDE RECORDS SUMMARY | 2024-12-26 11:50 | XMS_ITS | Encounter Summary ---
Author Organization [employer] Address [address] [place] [address] 7t [place] [address] Care Team Providers Care Can Repairer Name Role Phone Nicky Thibodeaux MD Primary Care Provider [phone]- [phone] Wu Manzo MD Unavailable Feroz Ascencio MD Unavailable [phone] Encounter Details Date Type Department Care Team (Late st Contact Info) Description 05/05/2022 Abstract [facility] [address] [place] [address] [phone] Nicky Thibodeaux MD [address] [place] [address] [phone] Social History Tobacco Use Types Packs/Day Years [...] Description 12/28/2024 4:00 PM EDT Office Visit [facility] [address] [place] [address] [phone] Nicky Thibodeaux MD [address] [place] [address] [phone] documented as of this encounter Procedures Procedure Name Priority Date/Time Associated Diagnosis Comments COLPOSCOPY Routine 09/11/2021 12:00 AM EDT PAP SMEAR Routine 08/02/2021 12:00 AM EDT MAMMOGRAPHY Routine 10/29/2020 COLONOSCOPY Routine 12/11/2015 documented in this encounter Results * Colposcopy (09/11/2021 12:00 AM EDT) Historical Provider IN CLINIC/BEDSIDE ORDERAB LES Final Result Performing Organization Address City/[facility]/ZIP Co de Phone Number [facility] [address] [place] [address] [phone] * Pap Smear (08/02/2021 12:00 AM EDT) Swab Nicky Thibodeaux MD LAB CYTOLOGY ORDERABLES Fi nal Result Performing Organization Address [facility] [place]/[facility]/ZIP Co de Phone Number [facility] [address] [place] [address] [phone] * Mammography (10/29/2020) Mammogram BIRADS 2 Anatomical Region Laterality Modality Other Historical Provider HEALTH MAINTENANCE Final Result * Colonoscopy (12/11/2015) Colonoscopy normal with Dr. Delgado Historical Provider HEALTH MAINTENANCE Final Result documented in this encounter Visit Diagnoses Not on filedocumented in this encounter Care Teams Can Repairer Relationship Specialty Start Date End Date Nicky Thibodeaux MD [address] [place] [address] PCP - General Family Medicine 04/20/18 Wu Manzo MD [address] [place] [phone] Pain Medicine 03/29/24 Feroz Ascencio MD [address] [place] [phone] Orthopaedic Surgery 06/15/24 Rolanda Tirado Magnetic Prospecting OperatorCheck Airman 06/25/23 TREASURE [facility] 04/26/24 documented as of this encounter
--- OUTSIDE RECORDS SUMMARY | 2024-12-26 11:50 | XMS_ITS | Encounter Summary ---
Author Organization [employer] Address [address] [facility] 7t [place] [address] Care Team Providers Care Class A Regional Drivers Name Role Phone Culberson, Nicky CASTAÑEDA Primary Care Provider [phone]- [phone] Wu Manzo MD Unavailable Feroz Ascencio MD Unavailable [phone] Reason for Visit * Reason Comments Med Refill Encounter Details Date Type Department Care Team (Late st Contact Info) Description 04/29/2023 Refill [facility] [address] [place] [address] Chelsi Canseco ANP [address] [place] [address] Social History Tobacco Use Types Packs/Day Years [...] Description 12/28/2024 4:00 PM EDT Office Visit [facility] [address] [place] [address] Nicky Thibodeaux MD [address] [place] [address] documented as of this encounter Visit Diagnoses Not on filedocumented in this encounter Additional Health Concerns Assessment Noted Time PHQ-9 Depression Total Score: 22 023 2:09 PM EDT documented as of this encounter Care Teams Class A Regional Drivers Relationship Specialty Start Date End Date Nicky Thibodeaux MD [address] [place] [address] PCP - General Family Medicine 04/20/18 Wu Manzo MD [address] [place] [address] Pain Medicine 03/29/24 Feroz Ascencio MD [address] [place] [address] [phone] Orthopaedic Surgery 06/15/24 Rolanda Tirado Design CheckerNetting Inspector 06/25/23 Latia Guardado PA-C [facility] 04/26/24 documented as of this encounter
--- OUTSIDE RECORDS SUMMARY | 2024-12-26 11:50 | XMS_ITS | Encounter Summary ---
Author Organization [employer] Address [address] [facility] 7t [place] [address] Care Team Providers Care Education Paraprofessional Name Role Phone Nicky Thibodeaux MD Primary Care Provider [phone]- [phone] Wu Manzo MD Unavailable Feroz Ascencio MD Unavailable [phone] Reason for Visit * Reason Comments Med Refill Encounter Details Date Type Department Care Team (Late st Contact Info) Description 12/25/2024 Refill [facility] [address] [place] [address] Nicky Thibodeaux MD [address] [place] [address] Vitamin D deficiency Social History Tobacco Use Types Packs/Day Years [...] Description 12/28/2024 4:00 PM EDT Office Visit [facility] [address] [place] [address] Nicky Thibodeaux MD [address] [place] [address] documented as of this encounter Visit Diagnoses Diagnosis Vitamin D deficiency documented in this encounter Additional Health Concerns Assessment Noted Time PHQ-9 Depression Total Score: 14 024 10:51 AM EST documented as of this encounter Care Teams Education Paraprofessional Relationship Specialty Start Date End Date Nicky Thibodeaux MD [address] [place] [address] PCP - General Family Medicine 04/20/18 Wu Manzo MD [address] [place] [address] Pain Medicine 03/29/24 Feroz Ascencio MD [address] [place] [phone] Orthopaedic Surgery 06/15/24 Rolanda Tirado Drapery CutterWine Specialist 06/25/23 TREASURE [facility] 04/26/24 documented as of this encounter
--- OUTSIDE RECORDS SUMMARY | 2024-12-26 11:50 | XMS_ITS | Clinical Summary ---
Author Organization [facility] Address [address] [place] [phone] Care Team Providers Care Bottle Line Worker Name Role Phone Nicky Thibodeaux MD Primary Care Provider +1- [phone] Social History Tobacco Use Types Packs/Day Years [...] 03/30/2022 Social Influencers of Health Screening 03/30/2022 Depression Screening 04/20/2024 COVID-19 Vaccine (1 - 2023-2 5 season) 2024 Influenza Vaccine (#1) 2024 RSV Immunization Adult [...] age to complete this topic Care Teams Bottle Line Worker Relationship Specialty Start Date End Date Nicky Thibodeaux MD [address] [place] [address] [place] [phone] PCP - General Internal Medicine 12/21/13
--- OUTSIDE RECORDS SUMMARY | 2024-12-26 11:50 | XMS_ITS | Encounter Summary ---
Author Organization [employer] Address [address] [facility] 7t [place] [address] Care Team Providers Care Pearl Diver Name Role Phone Nicky Thibodeaux MD Primary Care Provider [phone]- [phone] Wu Manzo MD Unavailable Feroz Ascencio MD Unavailable [phone] Encounter Details Date Type Department Care Team (Latest Contact Info) Description 04/05/2021 Abstract [facility] CONVERSIONS Dental, Provider, DDS Social History [...] Description 12/28/2024 4:00 PM EDT Office Visit [facility] [address] [place] [address] Nicky Thibodeaux MD [address] [place] [address] documented as of this encounter Visit Diagnoses Not on filedocumented in this encounter Care Teams Pearl Diver Relationship Specialty Start Date End Date Nicky Thibodeaux MD [address] [place], [place] [phone] PCP - General Family Medicine 04/20/18 Wu Manzo MD [address] [place] [address] Pain Medicine 03/29/24 Feroz Ascencio MD [address] [place] [phone] Orthopaedic Surgery 06/15/24 Rolanda Tirado Mortgage Branch ManagerSegmental Paver Installer 06/25/23 TREASURE [facility] 04/26/24 documented as of this encounter
--- OUTSIDE RECORDS SUMMARY | 2024-12-26 11:50 | XMS_ITS | Encounter Summary ---
Author Organization [employer] Address [address] [facility] 7t [place] [address] Care Team Providers Care Manager Product Support Name Role Phone Nicky Thibodeaux MD Primary Care Provider [phone]- [phone] Wu Manzo MD Unavailable Feroz Ascencio MD Unavailable [phone] Reason for Visit * Reason Comments Med Refill Encounter Details Date Type Department Care Team (Late st Contact Info) Description 04/09/2023 Refill [facility] [address] [place] [address] Nicky Thibodeaux MD [address] [place] [address] Pain Social History Tobacco Use Types Packs/Day Years Used Date Smoking Tobacco: Every Day Cigarettes Passive Smoke Exposure: Current Smokeless Tobacco: Never Depression Answer Date Recorded Patient Health Questionnaire-9 Score 22 07/30/2022 Housing Stability Answer Date Recorded What is your housing situation today? I have ruy pziano 02/05/[address] you li [...] Description 12/28/2024 4:00 PM EDT Office Visit [facility] [address] [place] [address] Nicky Thibodeaux MD [address] [place] [address] documented as of this encounter Visit Diagnoses Diagnosis Pain Generalized pain documented in this encounter Additional Health Concerns Assessment Noted Time PHQ-9 Depression Total Score: 22 023 2:09 PM EDT documented as of this encounter Care Teams Manager Product Support Relationship Specialty Start Date End Date Nicky Thibodeaux MD [address] [place] [address] PCP - General Family Medicine 04/20/18 Wu Manzo MD [address] [place] [address] Pain Medicine 03/29/24 Feroz Ascencio MD [address] [place] [phone] Orthopaedic Surgery 06/15/24 Rolanda Tirado Perforator OperatorSole Sewer Hand 06/25/23 Latia Guardado PA-C [facility] 04/26/24 documented as of this encounter
--- OUTSIDE RECORDS SUMMARY | 2024-12-26 11:50 | XMS_ITS | Encounter Summary ---
Author Organization [employer] Address [address] [facility] 7t [place] [address] Care Team Providers Care Licensed Practical Vocational Nurse Name Role Phone Nicky Thibodeaux MD Primary Care Provider [phone]- [phone] Wu Manzo MD Unavailable Feroz Ascencio MD Unavailable [phone] Reason for Visit * Reason Comments Med Refill Encounter Details Date Type Department Care Team (Late st Contact Info) Description 05/19/2023 Refill [facility] [address] [place] [address] Nicky Thibodeaux MD [address] [place], [place] [phone] Asthma, unspecified asthma severity, unspecified whether complicated, [...] Description 12/28/2024 4:00 PM EDT Office Visit [facility] [address] [place] [address] Nicky Thibodeaux MD [address] [place] [address] documented as of this encounter Visit Diagnoses Diagnosis Asthma, unspecified asthma severity, unspecified whether complicated, unspecified whether persistent documented in this encounter Additional Health Concerns Assessment Noted Time PHQ-9 Depression Total Score: 22 023 2:09 PM EDT documented as of this encounter Care Teams Licensed Practical Vocational Nurse Relationship Specialty Start Date End Date Nicky Thibodeaux MD [address] [place] [address] PCP - General Family Medicine 04/20/18 Wu Manzo MD [address] [facility] [address] [place] [address] Pain Medicine 03/29/24 Feroz Ascencio MD [address] [place] [phone] Orthopaedic Surgery 06/15/24 Rolanda Tirado Clearing InspectorAssembler Skylights 06/25/23 Latia Guardado PA-C [facility] 04/26/24 documented as of this encounter
--- OUTSIDE RECORDS SUMMARY | 2024-12-26 11:50 | XMS_ITS | Encounter Summary ---
Author Organization [employer] Address [address] [place] [address] 7t [place] [address] Care Team Providers Care Cmv Driver Name Role Phone Nicky Thibodeaux MD Primary Care Provider +1- [phone] Wu Manzo MD Unavailable Feroz Ascencio MD Unavailable [phone] Encounter Details Date Type Department Care Team (Late st Contact Info) Description 05/22/2022 Orders Only [facility] MEDICINE [address] [place] [address] Nereida Horner LPN Social History Tobacco Use [...] 4:00 PM EDT Office Visit [facility] MEDICINE [address] [place] [address] [phone] Nicky Thibodeaux MD [address] [place] [address] [phone] documented as of this encounter Visit Diagnoses Not on filedocumented in this encounter Care Teams Cmv Driver Relationship Specialty Start Date End Date Nicky Thibodeaux MD [address] [place] [address] [phone] PCP - General Family Medicine 04/20/18 Wu Manzo MD [address] [place] [address] Pain Medicine 03/29/24 Feroz Ascencio MD [address] [place] [phone] Orthopaedic Surgery 06/15/24 Rolanda Tirado AppraiserTimber Setter 06/25/23 TREASURE [facility] 04/26/24 documented as of this encounter
--- OUTSIDE RECORDS SUMMARY | 2024-12-26 11:50 | XMS_ITS | Encounter Summary ---
Author Organization [employer] Address [address] [facility] [address] 7t [place] [address] Care Team Providers Care Gandy Dancer Name Role Phone Nicky Thibodeaux MD Primary Care Provider [phone]- [phone] Wu Manzo MD Unavailable Feroz Ascencio MD Unavailable [phone] Encounter Details Date Type Department Care Team (Late st Contact Info) Description 12/06/2024 Telephone [facility]INE [address] [place] [address] Nicky Thibodeaux MD [address] [place] [address] Social History Tobacco Use Types Packs/Day Years [...] encounter Miscellaneous Notes * Telephone Encounter - Mindy Carpio - 12/21/2024 4:09 PM EDT Patient must be seen before PA can be Processed. Pending appt with PCP on 12/28/24. * Telephone Encounter - Kirstin Lopez - 12/06/2024 3:37 PM EDT Tc from pt stating script for Tirzepatide-Weight Management (Zepbound) 7.5 MG/0.5ML solution auto-injector requires a prior authorization. documented in this encounter Plan of Treatment Upcoming Encounters Date Type Department Care Team (Late st Contact Info) Description 12/28/2024 4:00 PM EDT Office Visit [facility] MED[facility]INE [address] [place] [address] Nicky Thibodeaux MD [address] [place] [address] documented as of this encounter Visit Diagnoses Not on filedocumented in this encounter Additional Health Concerns Assessment Noted Time PHQ-9 Depression Total Score: 14 024 10:51 AM EST documented as of this encounter Care Teams Gandy Dancer Relationship Specialty Start Date End Date [place], MD Nicky [address] [place] [address] PCP - General Family Medicine 04/20/18 Wu Manzo MD [address] [facility] [facility] [address] [place] [address] Pain Medicine 03/29/24 Feroz Ascencio MD [address] [place] [phone] Orthopaedic Surgery 06/15/24 Rolanda Tirado Stonemason ApprenticeMold Changer 06/25/23 TREASURE [facility] 04/26/24 documented as of this encounter
--- OUTSIDE RECORDS SUMMARY | 2024-12-26 11:50 | XMS_ITS | Encounter Summary ---
Author Organization [employer] Address [address] [facility] 7t [place] [address] Care Team Providers Care Stereo Equipment Salesperson Name Role Phone Nicky Thibodeaux MD Primary Care Provider [phone]- [phone] Wu Manzo MD Unavailable Feroz Ascencio MD Unavailable [phone] Reason for Visit * Reason Comments Med Refill Encounter Details Date Type Department Care Team (Late st Contact Info) Description 12/23/2024 Refill [facility] [address] [place] [address] Nicky Thibodeaux MD [address] [place] [address] Chronic migraine without aura without status migrainosus, not intractable; Pain Social History Tobacco Use Types Packs/Day [...] Description 12/28/2024 4:00 PM EDT Office Visit [facility] [address] [place] [address] Nicky Thibodeaux MD [address] [place] [address] documented as of this encounter Visit Diagnoses Diagnosis Chronic migraine without aura without status migrainosus, not intractable Pain Generalized pain documented in this encounter Additional Health Concerns Assessment Noted Time PHQ-9 Depression Total Score: 14 024 10:51 AM EST documented as of this encounter Care Teams Stereo Equipment Salesperson Relationship Specialty Start Date End Date Nicky Thibodeaux MD [address] [place] [address] PCP - General Family Medicine 04/20/18 Wu Manzo MD [address] [facility] [address] [place] [address] Pain Medicine 03/29/24 Feroz Ascencio MD [address] [place] [phone] Orthopaedic Surgery 06/15/24 Rolanda Tirado TsoTailor'S Aide 06/25/23 TREASURE [facility] 04/26/24 documented as of this encounter
--- OUTSIDE RECORDS SUMMARY | 2024-12-26 11:50 | XMS_ITS | Encounter Summary ---
Author Organization [employer] Address [address] [place] [address] 7t [place] [address] Care Team Providers Care Political Anthropologist Name Role Phone [place], Nicky CASTAÑEDA Primary Care Provider [phone]- [phone] Wu Manzo MD Unavailable Feroz Ascencio MD Unavailable [phone] Reason for Visit * Reason Comments Med Refill Encounter Details Date Type Department Care Team (Late st Contact Info) Description 09/30/2022 Refill [facility] MEDICINE [address] [place] [address] Deborah Stratton MD [address] [place] [address] Chronic migraine without aura without status migrainosus, [...] Description 12/28/2024 4:00 PM EDT Office Visit [facility] MEDICINE [address] [place] [address] Nicky Thibodeaux MD [address] [place] [address] documented as of this encounter Visit Diagnoses Diagnosis Chronic migraine without aura without status migrainosus, not intractable documented in this encounter Additional Health Concerns Assessment Noted Time PHQ-9 Depression Total Score: 22 023 2:09 PM EDT documented as of this encounter Care Teams Political Anthropologist Relationship Specialty Start Date End Date Nicky Thibodeaxu MD [address] [place] [address] PCP - General Family Medicine 04/20/18 Wu Manzo MD [address] [place] [address] Drive [address] [place] [address] Pain Medicine 03/29/24 Feroz Ascencio MD [address] [place] [phone] Orthopaedic Surgery 06/15/24 Rolanda Tirado Automotive Technician InstructorMedical Center Manager 06/25/23 Latia Guardado PA-C [facility] 04/26/24 documented as of this encounter
--- OUTSIDE RECORDS SUMMARY | 2024-12-26 11:51 | XMS_ITS | Clinical Summary ---
Author Organization [employer] Address [address] [place] [address] 7t [place] [address] Care Team Providers Care Shank Taper Name Role Phone Nicky Thibodeaux MD Primary Care Provider [phone] Wu Manzo MD Unavailable Feroz Ascencio MD [...] with anxiety 50 mg. Active HYDROcodone-aceta minophen (Rentz) 5-325 MG tabletIndications :Chronic low back pain, [...] (BMI) of 35.0 to 35.9 in adult (CMS/[facility]) Inject 0.5 mL (7.5 mg) under the skin 1 (one) time per week. 2 mL 025 Active lidocaine (Lidoderm) 5 % patchIndications: Pain APPLY 1 PATCH EVERY DAY MAY WEAR UP TO 12 HOURS 30 patch 025 Active lidocaine-priloca ine (Emla) 2.5-2.5 % creamIndications: Pain Apply topically if needed each day for mild pain. APPLY TOPICALLY 1 (ONE) TIME FOR 1 DOSE. APPLY TWICE A DAY NEEDED FOR PAIN 30 g 025 Active diclofenac (Voltaren) 75 MG EC tabletIndications :Osteoarthritis of hip, unspecified laterality, unspecified osteoarthritis type TAKE 1 TABLET BY MOUTH TWICE A DAY NEEDED 60 tablet 025 Active Acetaminophen Extra Strength 500 MG tabletIndications :Pain TAKE 1 TABLET BY MOUTH EVERY 8 HOURS NEEDED 90 tablet 025 Active SUMAtriptan (Imitrex) 50 MG tabletIndications [...] DAILY NEEDED FOR MUSCLE PAIN 90 tablet 3 025 Active SUMAtriptan (Imitrex) 50 MG tabletIndications :Chronic migraine without aura without status migrainosus, not intractable TAKE 1 TABLET BY MOUTH AT ONSET OF MIGRAINE MAY REPEAT DOSE IN 2 HOURS IF NEEDED MAX 4 TABLETS DAILY 10 tablet 2 025 2024 Discontinued diclofenac (Voltaren) 75 MG EC tabletIndications :Osteoarthritis of hip, unspecified laterality, unspecified osteoarthritis type TAKE 1 TABLET BY MOUTH TWICE A DAY NEEDED 60 tablet 025 2024 Discontinued Acetaminophen Extra Strength 500 MG tabletIndications :Pain TAKE 1 TABLET BY MOUTH EVERY 8 HOURS NEEDED 90 tablet 025 2024 Discontinued cyclobenzaprine (Flexeril) 10 MG tabletIndications :Pain TAKE [...] due after 03/14/25 -eye care facilitated by Replaced By [facility] -dental home is [facility] -swapna care proxy paperwork completed by to the patient 07/17/23 Assessment & Plan (03/14/2024 11:23 AM EST): -next physical exam due after 03/14/25 -eye care facilitated by Replaced By [facility] -dental home is [facility] -swapna care proxy paperwork completed by to the patient 07/17/23 Assessment & Plan (11/19/2023 11:08 AM EDT): -next physical exam due after 12/11/23 -eye care facilitated by Replaced By [facility] -dental home is [facility] -swapna care proxy paperwork completed by to the patient 07/17/23 Assessment & Plan (07/17/2023 10:10 AM EDT): -next physical exam due after 12/11/23 -eye care facilitated by [facility] -dental home is [facility] -swapna care proxy paperwork completed [...] MRI image on the disc from [facility] where she had MRI performed. I also requested her to read brochures about [facility] [facility] and [employer]. Assessment & Plan (07/17/2023 10:03 AM EDT): Her pain is not controlled. Dillon asked her to reach out to her original prescriber for Vicodin at [facility]. She is 7 weeks post-op sugery and is weaning her percocet's. Dillon explained since she is on Ambien, gabapentin, and benzodiazapine I would not be able to safely prescribe the medications through our program. Assessment & Plan (12/15/2022 9:38 AM EDT): Her pain is not controlled. Dillon asked her to reach out to her original prescriber for Vicodin at [facility]. She is 7 weeks post-op sugery and is weaning her percocet's. Dillon explained since she is on Ambien, gabapentin, and benzodiazapine I would not be able to safely prescribe the medications through our program. Assessment & Plan (09/03/2022 12:12 PM EDT): Her pain is not controlled. Dillon asked her to reach out to her original prescriber for Vicodin at [facility]. She is 7 weeks post-op sugery [...] of Wegov[employer] from insurance 09/23/23. -Wegovy (semaglutide) -BUZZ resubmitted 11/19/23 -Advised to Switch from Wegov[employer] [...] considered to be 1.7 [place] 2.4 [facility]. -BUZZ resubmitted 11/19/23 - Advised to Switch [...] considered to be 1.7 or 2.4 mg [facility]. -PA resubmitted 11/19/23 Assessment & Plan (09/23/2023 [...] considered to be 1.7 or 2.4 mg [facility]. Chronic low back pain 07/23/2022 Overview (08/11/2024): [...] severe pain. She is getting Vicodin from [facility]. She requests opiate medications from [...] therapy, multiple injections, and awaiting TENs unit. -[facility] [place] prescribing hydrocodone/APA 5/325 to support instrumented activities [...] MRI image on the disc from [facility] where she had MRI performed. I [...] severe pain. She is getting Vicodin from [facility]. She requests opiate medications from [...] pain. She sees a therapist and psychiatrist. -[facility] [place] prescribing hydrocodone/APA 5/325 to support instrumented activities [...] severe pain. She is getting Vicodin from [facility]. She requests opiate medications from [...] -Referral placed to Gynecology, Dr. Aaron 07/17/23 -[facility] called 09/23/23 stating [...] -Referral placed to Gynecology, Dr. Aaron 07/17/23 -[facility] called 09/23/23 stating [...] -Referral placed to Gynecology, Dr. Aaron 07/17/23 -[facility] called 09/23/23 stating [...] left MARISELA 01/29/[address] Neal in [place] -s/p bilateral GT bursa injection under fluoroscopic guidance 06/13/24 with moderate reduction of pain in bilateral lateral hips -seen by ortho at [facility] 07/21/24 Hip pain [...] Encounters Date Type Department Care Team Description 12/26/2024 Orders Only GENERIC EXTERNAL DATA DEPARTMENT Provider, Generic External Data 12/25/2024 Refill [facility] [address] [place] [address] Nicky Thibodeaux MD Vitamin D deficiency 12/23/2024 Refill [facility] [address] [place] [address] Nicky Thibodeaux MD Chronic migraine without aura without status migrainosus, not intractable; Pain 12/20/2024 Telephone [facility] MED[facility] [address] [place] [address] Nicky Thibodeaux MD Prior Authorization 12/13/2024 Refill [facility] [address] [place] [address] Nicky Thibodeaux MD Osteoarthritis of hip, unspecified laterality, unspecified osteoarthritis type; Pain 12/12/2024 Telephone [facility] [address] [place] [address] Nicky Thibodeaux MD PT1 12/06/2024 Telephone [facility] [address] [place] [address] Nicky Thibodeaux MD 11/24/2024 Refill [facility] [address] [place] [address] Nicky Thibodeaux MD Pain 11/16/2024 Refill [facility] [address] [place] [address] Nicky Thibodeaux MD Pain 11/16/2024 Refill [facility] [address] [place] [address] Chelsi Canseco ANP Pain 11/14/2024 Refill [facility] [address] [place] [address] Angie Eli MD Osteoarthritis of hip, unspecified laterality, unspecified osteoarthritis type; Pain 10/26/2024 Refill [facility] [address] [place] [address] Nicky Thibodeaux MD Pain 10/17/2024 Refill [facility] [address] [place] [address] Nicky Thibodeaux MD Osteoarthritis of hip, unspecified laterality, unspecified osteoarthritis type; Pain 10/12/2024 Telephone [facility]INE [address] [place] [address] Nicky Thibodeaux MD pt1 09/30/2024 Orders Only [facility] [address] [place] [address] Nicky Thibodeaux MD 09/28/2024 Refill [facility]INE [address] [place] [address] Nicky Thibodeaux MD Chronic migraine without aura without status migrainosus, not intractable; Pain 09/28/2024 Refill [facility] [address] [place] [address] Deborah Stratton MD Pain from Last 3 Months Immunizations Immunization Administration [...] Description 12/28/2024 4:00 PM EDT Office Visit [facility] MEDICINE [address] [place] [address] Nicky Thibodeaux MD [address] [place], [place] [phone] Health Maintenance Due Date Last Done Comments [...] 09/11/2022 08/02/2021 Pap Smear 09/11/2022 08/02/2021, 08/02/2021 Depression Monitoring 09/11/2024 03/14/2024, 024 SDOH Screening 11/08/2024 11/09/2023 COVID-19 Vaccine ( season) 2024 Influenza Vaccine (#1) 2024 4, 12/29/2012, 01/19/2012 [...] AUTO DIFFERENTIAL Routine 12/26/2024 10:08 AM EDT BI MAMMOGRAM SCREENING TOMOSYNTHESIS BILATERAL Routine 09/30/2024 [...] Recently Relevant to Health Maintenance Results * (ABNORMAL) CBC auto differential (12/26/2024 10:08 AM EDT) White Blood Count 8.3 4.8 - 10.8 X10*3/uL [facility] Red Blood Count 4.05(L) 4.20 - 5.50 X10*6/uL [facility] Hemoglobin 11.4(L) 12.0 - 16.0 g/dl [facility] Hematocrit 35.8(L) 37.0 - 47.0 % [facility] Mean Corpuscular Volume 88.4 80.0 - 98.0 fL [facility] Mean Corpuscular Hemoglobin 28.1 27.0 - 33.0 pg [facility] Mean Corpuscular HGB Conc 31.8 31.0 - 35.0 g/dl [facility] Red Cell Distribution Width 14.3 11.0 - 16.0 % [facility] Platelet Count 281 160 - 400 X10*3/uL [facility] Mean Platelet Volume 10.8 9.4 - 12.3 fL [facility] Neutrophils Percent Auto 67.5 45 - 73 % [facility] Imm Gran Pct Auto 0.2 0.0 - 0.4 % [facility] Lymphocytes Percent Auto 23.6 20 - 40 % [facility] Monocytes Percent Auto 6.9 2 - 11 % [facility] Eosinophils Percent Auto 1.2 0 - 4 % [facility] Basophils Percent Auto 0.6 0 - 2 % [facility] NRBC Pct Auto 0.0 0.0 - 0.2 /100WBC [facility] Neutrophils Absolute Auto 5.6 2.0 - 8.3 x10*3/uL [facility] Imm Gran Abs Auto 0.02 0.00 - 0.03 X10*3/uL [facility] Lymphocytes Absolute Auto 2.0 1.2 - 4.9 X10*3/uL [facility] Monocytes Absolute Auto 0.6 0.1 - 1.2 X10*3/uL [facility] Eosinophils Absolute Auto 0.1 0.0 - 0.4 X10*3/uL [facility] Basophils Absolute Auto 0.1 0.0 - 0.2 X10*3/uL [facility] NRBC Abs Auto 0.000 0.0 - 0.012 X10*3/uL [facility] 12/26/2024 10:0 8 AM EDT 12/26/2024 11:16 AM EDT us Generic External Data Provider LAB BLOOD ORDERAB LES Final Result Performing Organization Address City/State/[facility] Co de Phone Number [facility] [address] [place] [address] [phone] * BI Mammogram Screening Tomosynthesis Bilateral (09/30/2024 2:45 PM EDT) Anatomical Region Laterality Modality Breast Bilateral Mammography 09/30/2024 2:45 PM EDT Narrative 10/08/2024 8:50 PM EDT [address] [place] [address] Mammography Report Signed Patient: Darcy Meidna MR#: [id number] : 1965 Acct:[id number] Age/Sex: 59 / F ADM Date: 09/30/24 Loc: HO.MAMMO Attending Dr: Nicky Thibodeaux MD Ordering Physician: Nicky Thibodeaux MD Results: 2B enign Findings Date of Service: 09/30/24 Follow Up: 1 Year From Orig inal Mammogram Procedure(s): MM tomosynthesis screening BI Accession Number(s): [id number] cc: Nicky Thibodeaux MD EXAMINATION: MM SCREENING [...] 10/08/24 2047 DD/ 1445 TD/TT: 09/30/24 1500 R D Intern: Procedure Note Donotuseinterpreter, Image - [facility] [address] [place] [address] Mammography Report Signed Patient: Darcy Medina FMR#: [id number] : 1965Acct:[id number] Age/Sex: 59 / FADM Date: 09/30/24 Loc: HO.MAMMO Attending Dr: Nicky Thibodeaux MD Ordering Physician: Nicky Thibodeaux MDResults: 2B enign Findings Date of Service: 09/30/24Follow Up: 1 Year From Orig inal Mammogram Procedure(s): MM tomosynthesis screening BI Accession Number(s): [id number] cc: Nicky Thibodeaux MD EXAMINATION: MM SCREENING [...] OV> 10/08/242046 DD/ 1445 TD/TT: 09/30/24 1500 R D Intern: us Nicky Thibodeaux MD IMG BI PROCEDURES Edited R esult - Final * (ABNORMAL) Lipid Panel, Standard (07/17/2023 10:24 AM EDT) Triglycerides 168(H) <150 mg/dL [facility] Comment:Desirable Triglyceri de: less than 150 mg/dLBorderline High Triglyceride 150-199 mg/dLHigh Triglyceride: 200-499 mg/dLVery High Triglyceride: greater than or equal to 5OO mg/dL Cholesterol 219(H) <200 mg/dL [facility] Comment:Desirable Cholestero l: less than 200 mg/dLBorderline High Cholesterol: 200-239 mg/dLHigh Cholesterol: greater than 239 mg/dL LDL Cholesterol Calculated 137(H) <100 mg/dL [facility] Comment:Desirable LDL: less than 100 mg/dLNear Optimal/Above Optimal LDL: 110- 129 mg/dLBorderline High LDL: 130-159 mg/dLHigh LDL: 160-189 mg/dLVery High LDL: greater than or equal to 190 mg/dL HDL Cholesterol 49 >40 mg/dL [facility] Comment:Desirable HDL: great er than 40 mg/dL Note: This HDL assay may give artificially low results in patients with liver disease. Blood Venous blood specimen / Unknown 07/17/2023 10:24 AM EDT 07/17/2023 11:19 AM EDT Nicky Thibodeaux MD LAB BLOOD ORDERABLES Final Result [facility] [address] [place] [phone] [phone] * Hepatitis C Antibody with Reflex to HCV, RNA, Quantitative, Real-Time PCR (09/03/2022 11:58 AM EDT) Hepatitis C Antibody NON-REACT DILLON NON-REACT DILLON [facility] [place] [facility] [employer] Index 0.02 <1.00 [facility] [place] [facility] Comment: HCV antibody was non-reactive. There is no laboratory evidence of HCV infection. In most cases, no further action is required. However, if recent HCV exposure is suspected, a test for HCV RNA (test code 87375) is suggested. For additional information please refer to http://education.EQ works/faq/SKJ90y5 (This link is being provided for informational/ educational purposes only.) Blood Venous blood specimen / Unknown 09/03/2022 11:58 AM EDT 09/03/2022 11:58 AM EDT Narrative [facility] - 09/07/2022 11:33 PM EDT FASTING:YES FASTING: YES Nicky Thibodeaux MD LAB BLOOD ORDERABLES Final Result Performing Organization Address City/[facility]/ZIP Co de Phone Number [facility] [address], [place] [address] [facility] [place] [employer] [address] [place] [address] * HIV-1/2 Antigen and Antibodies, Fourth Generation, with Reflexes (09/03/2022 11:58 AM EDT) Pathologist [facility] HIV Antigen/Antibody, 4th Generation NON-REAC TIVE NON-REAC TIVE [facility] [place] [employer] Comment: HIV-1 antigen and HIV-1/HIV-2 antibodies were [...] purpose. For additional information please refer to http://ActiveReplay.EQ works/faq/GVI878 (This link is being provided for informational/ educational purposes only.) The performance of this assay has not been clinically validated in patients less than 2 years old. Blood Venous blood specimen / Unknown 09/03/2022 11:58 AM EDT 09/03/2022 11:58 AM EDT Narrative [facility] - 09/07/2022 11:33 PM EDT FASTING:YES FASTING: YES Nicky Thibodeaux MD LAB BLOOD ORDERABLES Final Result [facility] [address], [place] [address] [facility] [address] [place] [phone] * (ABNORMAL) THINPREP TIS PAP AND HPV mRNA E6/E7, CT/NG, TRICH (08/02/2021 11:49 AM EDT) Chlamydia trachomatis RNA, TMA, Urogenital NOT DETECTED NOT DETECTED [facility] Clinical Information: None given [facility] COMMENT SEE COMMENT [facility] Comment: The analytical performance characteristics of this assay, when used to test SurePath(TM) specimens have been determined by [facility]. The modifications have not been cleared or approved by the FDA. This assay has been validated pursuant to the CLIA regulations and is used for clinical purposes. For additional information, please refer to https://ActiveReplay.Monetsu.White Sky/faq/WGW201 (This link is being provided for information/ [...] has been evaluated with computer assisted technology. [facility] Family Practitioner: SEE COMMENT [facility] Comment: DCR, CT(ASCP) CT screening location: [place] [address] HPV nRNA E6/E7 Detected(A) Not Detected [facility] Comment: Methodology: Lasting Machine Operator Bed-Mediated Amplification This assay detects E6/E7 viral messenger RNA (mRNA) from 14 high-risk HPV types (16,18,31,33,35,39,45,51,52,56,58,59,66,68). The analytical performance characteristics of this assay have been determined by [facility]. The modifications have not been cleared or approved by the FDA. This assay has been validated pursuant to the CLIA regulations and is used for clinical purposes. For additional information, please refer to http://ActiveReplay.EQ works/faq/VUO889t8 (This link if provided for information/ educational purposes only.) Interpretation/Res ult: SEE COMMENT [facility] Comment: Negative for intraepithelial lesion or malignancy. Atrophic pattern; predominantly parabasal cells LMP: NONE GIVEN [facility] Neisseria gonorrhoeae RNA, TMA, Urogenital NOT DETECTED NOT DETECTED [facility] Prev. BX: NONE GIVEN [facility] Prev. PAP: NONE GIVEN [facility] Review Family Practitioner: SEE COMMENT [facility] Comment: JXM, CT(ASCP) CT screening location: [place] [address] SOURCE: None given [facility] Statement Of Adequacy: SATISFACTORY FOR EVALUATION [facility] Trichomonas vaginalis, QL, TMA, PAP Vial NOT DETECTED NOT DETECTED [facility] Comment: The analytical performance characteristics of this assay have been determined by [facility]. The modifications have not been cleared or approved by the FDA. This assay has been validated pursuant to the CLIA regulations and is used for clinical purposes. For additional information, please refer to http://ActiveReplay.EQ works/ faq/Trichomonastma (This link is being provided for information/ educational purposes only.) 08/02/2021 11:4 9 AM EDT Nicky Thibodeaux MD LAB PATHOLOGY ORDERABLES F inal Result [facility] [address] * Pap Smear (08/02/2021 12:00 AM EDT) Swab Nicky Thibodeaux MD LAB CYTOLOGY ORDERABLES Fi nal Result [facility] [address] [place] [phone] [phone] * Colonoscopy (12/11/2015) Colonoscopy normal with Dr. Delgado Historical Provider HEALTH MAINTENANCE Final Result from Last 3 Months or Most Recently Relevant to Health Maintenance Insurance [facility] STAND AD[facility] Advance Directives Documents on File Type Date Recorded Patient Aoc Airspace Control Officer Expl anation Advance Directives and Living Will 07/17/2023 Health Care Proxy 07/17/23 Care Teams Shank Taper Relationship Specialty Start Date End Date [place], MD Nicky [address] [place] [address] PCP - General Family Medicine 04/20/18 Wu Manzo MD [address] [place] [address] Pain Medicine 03/29/24 Feroz Ascencio MD [address] [place] [phone] Orthopaedic Surgery 06/15/24 Rolanda Tirado Automobile Rental RepresentativeTube Bending Machine Operator 06/25/23 TREASURE [facility] 04/26/24
--- OUTSIDE RECORDS SUMMARY | 2024-12-26 11:51 | XMS_ITS | Encounter Summary ---
Author Organization [employer] Address [address] [place] [address] Care Team Providers Care Fishing Vessel Mate Name Role Phone Nicky Thibodeaux MD Primary Care Provider [phone] Wu Manzo MD Unavailable Feroz Ascencio MD Unavailable [phone] Reason for Visit * Reason Onset Date Comments Pre-visit Planning 11/09/2023 Encounter Details Date Type Department Care Team (Late st Contact Info) Description 11/09/2023 Telephone [facility] MEDICINE [address] [place] [address] Nicky Thibodeaux MD [address] [place] [address] Pre-visit Planning Social History Tobacco Use Types [...] 4:00 PM EDT Office Visit [facility] MEDICINE [address] [place] [address] Nicky Thibodeaux MD [address] [place] [address] documented as of this encounter Visit Diagnoses Not on filedocumented in this encounter Additional Health Concerns Assessment Noted Time PHQ-9 Depression Total Score: 22 023 2:09 PM EDT documented as of this encounter Care Teams Fishing Vessel Mate Relationship Specialty Start Date End Date Nicky Thibodeaux MD [address] [place] [address] PCP - General Family Medicine 04/20/18 Wu Manzo MD [address] [place] [phone] Pain Medicine 03/29/24 Feroz Ascencio MD [address] [place] [phone] Orthopaedic Surgery 06/15/24 Rolanda Tirado Curing Press MaintainerDelivery Room Supervisor 06/25/23 TREASURE [facility] 04/26/24 documented as of this encounter
--- OUTSIDE RECORDS SUMMARY | 2024-12-26 11:51 | XMS_ITS | Encounter Summary ---
Author Organization [employer] Address [address] [facility] [address]t [place] [address] Care Team Providers Care Switchboard Clerk Name Role Phone Nicky Thibodeaux MD Primary Care Provider [phone] Wu Manzo MD Unavailable Feroz Ascencio MD Unavailable [phone] Reason for Visit * Reason Onset Date Comments Nurse Triage 05/11/2024 Encounter Details Date Type Department Care Team (Late st Contact Info) Description 05/11/2024 Telephone [facility] MEDICINE [address] [place] [address] Nicky Thibodeaux MD [address] [place] [address] Nurse Triage Social History Tobacco Use Types [...] or Thursday.Pt wants appt on Thursday when MANAGER EMPLOYEE [employer]EF[employer] is available to bring pt. Reviewed [facility] operating hours and that wait times vary. Unable to book sick on site > 48 hours. Pt advised can call back on Thursday for Thursday scheduled. Reviewed home care advise, ER precautions and reasons to call back. Protocol Used: Dizziness (Adult) Protocol-Based Disposition: Discuss with PCP and Callback by Nurse Today Sent to PCP and [place] team Primary care nurses for follow up [...] Description 12/28/2024 4:00 PM EDT Office Visit [facility] MEDICINE [address] [place] [address] Nicky Thibodeaux MD [address] [place] [address] documented as of this encounter Visit Diagnoses Not on filedocumented in this encounter Additional Health Concerns Assessment Noted Time PHQ-9 Depression Total Score: 14 024 10:51 AM EST documented as of this encounter Care Teams Switchboard Clerk Relationship Specialty Start Date End Date Nicky Thibodeaux MD [address] [place] [address] PCP - General Family Medicine 04/20/18 Wu Manzo MD [address] [place] [address] Pain Medicine 03/29/24 Feroz Ascencio MD [address] [place] [phone] Orthopaedic Surgery 06/15/24 Rolanda Tirado Print DeveloperTop Loader 06/25/23 Latia Guardado PA-C [facility] 04/26/24 documented as of this encounter
--- OUTSIDE RECORDS SUMMARY | 2024-12-26 11:51 | XMS_ITS | Encounter Summary ---
Author Organization [employer] Address 75 [facility] 7t [place] [address] Care Team Providers Care Web Applications Architect Name Role Phone Nicky Thibodeaux MD Primary Care Provider [phone]- [phone] Wu Manzo MD Unavailable Feroz Ascencio MD Unavailable [phone] Reason for Visit * Reason Onset Date Comments pt1 10/12/2024 Encounter Details Date Type Department Care Team (Late st Contact Info) Description 10/12/[address] [facility] [address] [place] [address] Nicky Thibodeaux MD 230 [place] [address] pt1 Social History Tobacco Use Types Packs/Day [...] Miscellaneous Notes * Telephone Encounter - Cheyenne Carpio - 10/12/2024 2:08 PM EDT CHW Cheyenne Carpio submitted pt1 to [facility] for location below and will take up to 7 days to getapproved. CHW placed call to patient to let her know, patient understood and will call if she has any concerns. documented in this encounter Plan of Treatment Upcoming Encounters Date Type Department Care Team (Late st Contact Info) Description 12/28/2024 4:00 PM EDT Office Visit [facility] [address] [place] [address] Nicky Thibodeaux MD [address] [place] [address] documented as of this encounter Visit Diagnoses Not on filedocumented in this encounter Additional Health Concerns Assessment Noted Time PHQ-9 Depression Total Score: 14 024 10:51 AM EST documented as of this encounter Care Teams Web Applications Architect Relationship Specialty Start Date End Date Nicky Thibodeaux MD [address] [place] [address] PCP - General Family Medicine 04/20/18 Wu Manzo MD [address] [place] [address] [address] [place] [address] Pain Medicine 03/29/24 Feroz Ascencio MD [address] [place] [phone] Orthopaedic Surgery 06/15/24 Rolanda Tirado Associate Java DeveloperFinance Intern 06/25/23 TREASURE [facility] 04/26/24 documented as of this encounter
--- OUTSIDE RECORDS SUMMARY | 2024-12-26 11:51 | XMS_ITS | Encounter Summary ---
Author Organization [employer] Address [address] [facility] [address] 7t [place] [address] Care Team Providers Care Optimization Consultant Name Role Phone Nicky Thibodeaux MD Primary Care Provider [phone]- [phone] Wu Manzo MD Unavailable Feroz Ascencio MD Unavailable [phone] Reason for Visit * Reason Onset Date Comments PT-1 12/08/2023 Encounter Details Date Type Department Care Team (Late st Contact Info) Description 12/08/2023 Telephone [facility] 230 [place] [address] Nicky Thibodeaux MD 230 [place] [address] PT-1 Social History Tobacco Use Types Packs/Day [...] Y/N: Yes Provider name or facility name: [facility] pain management Facility Address: [address] [place] [address] Escort needed: Y/N: No Do you have a wheelchair: Y/N: No If yes- Manual or electric: N/A (uses walker) Visits: twice a month documented in this encounter Plan of Treatment Upcoming Encounters Date Type Department Care Team (Late st Contact Info) Description 12/28/2024 4:00 PM EDT Office Visit [facility] [address] [place] [address] Nicky Thibodeaux MD [address] [place] [address] documented as of this encounter Visit Diagnoses Not on filedocumented in this encounter Additional Health Concerns Assessment Noted Time PHQ-9 Depression Total Score: 22 023 2:09 PM EDT documented as of this encounter Care Teams Optimization Consultant Relationship Specialty Start Date End Date Nicky Thibodeaux MD [address] [place] [address] PCP - General Family Medicine 04/20/18 Wu Manzo MD [address] [place] [address] [address] [place] [address] Pain Medicine 03/29/24 Feroz Ascencio MD [address] [place] [phone] Orthopaedic Surgery 06/15/24 Rolanda Tirado Head Still OperatorHead Of It 06/25/23 Latia Guardado PA-C [facility] 04/26/24 documented as of this encounter
--- OUTSIDE RECORDS SUMMARY | 2024-12-26 11:51 | XMS_ITS | Encounter Summary ---
Author Organization [employer] Address 75 [facility] 7t [place] [address] Care Team Providers Care Director Summer Sessions Name Role Phone Nicky Thibodeaux MD Primary Care Provider +1- [phone] Wu Manzo MD Unavailable Feroz Ascencio MD Unavailable [phone] Reason for Visit * Reason Comments Med Refill Encounter Details Date Type Department Care Team (Late st Contact Info) Description 05/26/2024 Refill [facility] 230 [place] [address] Nicky Thibodeaux MD [address] [place] [address] Pain Social History Tobacco Use Types Packs/Day [...] Description 12/28/2024 4:00 PM EDT Office Visit [facility] 230 [place] [address] Nicky Thibodeaux MD [address] [place] [address] documented as of this encounter Visit Diagnoses Diagnosis Pain Generalized pain documented in this encounter Additional Health Concerns Assessment Noted Time PHQ-9 Depression Total Score: 14 024 10:51 AM EST documented as of this encounter Care Teams Director Summer Sessions Relationship Specialty Start Date End Date Nicky Thibodeaux MD [address] [place] [address] PCP - General Family Medicine 04/20/18 Wu Manzo MD [address] [facility] [address] [place] [address] Pain Medicine 03/29/24 Feroz Ascencio MD [address] [place] [phone] Orthopaedic Surgery 06/15/24 Rolanda Tirado Market Intelligence ConsultantSports Management Intern 06/25/23 TREASURE [facility] 04/26/24 documented as of this encounter
--- OUTSIDE RECORDS SUMMARY | 2024-12-26 11:51 | XMS_ITS | Encounter Summary ---
Author Organization [employer] Address [address] [facility] [address] 7t [place] [address] Care Team Providers Care Litigation Secretary Name Role Phone Nicky Thibodeaux MD Primary Care Provider +1- [phone] Wu Manzo MD Unavailable Feroz Asecncio MD Unavailable [phone] Reason for Visit * Reason Onset Date Comments Prior Authorization 12/20/2024 Encounter Details Date Type Department Care Team (Late st Contact Info) Description 12/20/2024 Telephone [facility] 230 [place] [address] Nicky Thibodeaux MD 230 [place] [address] Prior Authorization Social History Tobacco Use Types Packs/Day Years [...] Telephone Encounter - Regine Neely RN - 12/21/2024 10:17 AM EDT Called pt, explained that provider visit needed for processing Zepbound Rx. Pt reports fell yesterday and is not up to come in for visit today or tomorrow with nurse or provider at [facility]. Pt denies hitting head, said she fell against window on her left side, maybe bruised my hand and left side. Pt speaking in clear full sentences. Advised pt to come into [facility] today for provider evaluation, pt declined. Offered transportation as pt said no ride, pt declined, stated I'll wait and see how I feel tomorrow. Explained [facility] hours today and tomorrow, advised NTTS if needed. Scheduled pt for PCP visitin person next week per PCP note below, pt verbalized understanding. * Telephone Encounter - Nasir Carpio - 12/20/2024 11:18 AM EDT Tc from pt requesting a PA to be sent for the Zepbound medication. If any questions contact pt at [phone]. documented in this encounter Plan of Treatment Upcoming Encounters Date Type Department Care Team (Late st Contact Info) Description 12/28/2024 4:00 PM EDT Office Visit [facility] 230 [place] [address] Nicky Thibodeaux MD 230 [place] [address] documented as of this encounter Visit Diagnoses Not on filedocumented in this encounter Additional Health Concerns Assessment Noted Time PHQ-9 Depression Total Score: 14 03/14/ 024 10:51 AM EST documented as of this encounter Care Teams Litigation Secretary Relationship Specialty Start Date End Date Nicky Thibodeaux MD 230 [place], [place] [phone] PCP - General Family Medicine 04/20/18 Wu Manzo MD [address] [place] [address] Drive [address] [place] [address] Pain Medicine 03/29/24 Feroz Ascencio MD [address] [place] [phone] Orthopaedic Surgery 06/15/24 Rolanda Tirado Data OfficerEngineer Of System Development 06/25/23 Latia Guardado PA-C [facility] 04/26/24 documented as of this encounter
[2024-12-26 12:00] LABS: Alanine Aminotransferase 22 U/L (0-31); Albumin Level 4.2 g/dL (3.5-5.0); Alkaline Phosphatase 90 U/L (39-117); Anion Gap 15 (12-20); Aspartate Amino Transferase 19 U/L (5-31); Blood Urea Nitrogen 15 mg/dL (9-16); Calcium 9.1 mg/dL (8.4-10.2); Carbon Dioxide 23 mmol/L (22-29); Chloride 111 mmol/L (96-108); Cholesterol 186 mg/dL (<200); Estimated Glomerular Filt Rate 58; HDL Cholesterol 50 mg/dL (>40); Potassium 4.6 mmol/L (3.3-5.1); Sodium 144 mmol/L (135-145); Total Protein 7.2 g/dL (6.5-8.0); Triglycerides 198 mg/dL (<150)
== END 2024-12-26 10:03 | disposition home or self-care (01) ==
LOC: HO.HHCL 10:02
PROVIDERS: Nurse Practitioner Psychiatric/Mental Health; PCP Family Medicine; Visit Provider Family Medicine
DX: Z79.899 Other long term (current) drug therapy (principal)
CPT/HCPCS: 36415; 80053; 80061; 85025

== ENCOUNTER 2024-12-29 14:49 | Outpatient (AMB) | payer MEDICAID, SELFPAY ==
--- NOTE | 2024-12-29 15:25 | HO.SPINEOV ---
Intake Visit Reasons: chronic neck pain Intake Note: Ms. Medina is here today c/o Chronic Neck pain. Chemist Biological Required: No Allergies aspirin (ASPIRIN) Allergy (Mild, Verified 12/29/24 15:26) GI UPSET ibuprofen (IBUPROFEN) Allergy (Mild, Verified 12/29/24 15:26) GI UPSET Assessment & Plan Assessment & Plan (1) Cervical radiculopathy: Code(s): M54.12 - Radiculopathy, cervical region Category: Medical Plan Mrs Medina is here in follow-up. She is a patient known to us from a previous L4-5 lumbar fusion. For the last year so she has been having terrible pain in her neck going down her left arm into her elbow and forearm. She does have a little bit of numbness of her hand but can not really localize where it is. She has been trying to do self-directed treatments including medications like Tylenol, Vicodin, gabapentin and a muscle relaxer. She also underwent injections at the [facility] and tells me that these really did not do much. She is frustrated because it has been a year and it is not getting better. She had an MRI done at [facility] showing disc degeneration at multiple levels with bilateral C4-5 foraminal stenosis and left C5-6 severe foraminal stenosis. On exam her strength is good although she has a lot of limitations with pain especially with arm abduction. No true weakness however. Reflexes are normal. We discussed the options that are available to her. I think that Dr. Myrick would offer her a C4-5 C5-6 ACDF in light of the MRI findings. I am going to order an x-ray just to check her bone quality and to make sure there is no dynamic instability. We also discussed the fact that she has not done physical therapy yet, but she is reluctant to try this because it is never helped her. I did admonished her that the insurance companies often require 6 weeks of it before surgery but she is willing to take the risk that they will not require this. In the end, I do not think it is going to help either, but if we have to do it, so be it. Once I have a chance to review everything with Dr. Myrick I will call the patient. We did discuss the surgery, risks, benefits etc.. She is willing to proceed as long as Dr. Myrick believes she is a good candidate. Total amount of time spent in this visit was 20 minutes in discussion of symptoms, cervical MRI imaging results and subsequent plan of care Yogi Myrick MD,PhD [facility] Orders: Orders XR cervical spine 4V Today M54.12 - Radiculopathy, cervical region Coding Level of Care Code Est Pt Level 3 (86297) Diagnoses Cervical radiculopathy M54.12
== END 2024-12-29 16:10 | disposition home or self-care (01) ==
LOC: HO.HNS 14:50
PROVIDERS: PCP Family Medicine; Referring Provider Nurse Practitioner Women's Health; Visit Provider Physician Assistant
DX: M54.12 Radiculopathy, cervical region (principal)
CPT/HCPCS: 99213

== ENCOUNTER 2024-12-29 14:49 | Outpatient (REF) | payer MEDICAID, SELFPAY | END 2024-12-29 14:50 | disposition home or self-care (01) | LOC: HO.HOSX 14:49 | PROVIDERS: PCP Family Medicine; Referring Provider Nurse Practitioner Women's Health; Visit Provider Physician Assistant | DX: M54.12 Radiculopathy, cervical region (principal) | CPT/HCPCS: 99212 ==

== ENCOUNTER 2025-01-24 06:24 | Outpatient (REF) | payer MEDICAID, SELFPAY ==
--- NOTE | ~2025-01-24 | FL_ITS ---
EXAMINATION: FL GUIDANCE ONLY HISTORY: M53.3 - Sacrococcygeal disorders, not elsewhere classified COMPARISON: None available. TECHNIQUE: Fluoroscopy time: 13.8 seconds. Cumulative Dose: 4.13 mGy. Images: 4. FINDINGS: Fluoroscopic spot films of the pelvis demonstrate needles and contrast material in the regions of the bilateral sacroiliac joints. FL/FL guidance in treatment room IMPRESSION: Fluoroscopy during procedure. Please see procedure report for additional information. Electronically signed by: Calvin Grimes MD 01/24/2025 03:53 PM EDT
--- OUTSIDE RECORDS SUMMARY | 2025-01-24 06:26 | XMS_ITS | Encounter Summary ---
Author Organization [employer] Address [address] [facility] [address] 7t [place] [address] Care Team Providers Care Box Closing Machine Operator Name Role Phone Nicky Thibodeaux MD Primary Care Provider [phone]- [phone] Wu Manzo MD Unavailable Feroz Ascencio MD Unavailable Reason for Visit * Reason Onset Date Comments Pre-visit Planning 11/09/2023 Encounter Details Date Type Department Care Team (Late st Contact Info) Description 11/09/[address] [facility] 230 [place] [address] Nicky Thibodeaux MD 230 [place] [address] Pre-visit Planning Social History Tobacco Use Types [...] Care Team (Late st Contact Info) Description 03/29/2025 2:15 PM EST Office Visit [facility] 230 [place] [address] Nicky Thibodeaux MD [address] [place] [address] documented as of this encounter Visit Diagnoses Not on filedocumented in this encounter Additional Health Concerns Assessment Noted Time PHQ-9 Depression Total Score: 22 023 2:09 PM EDT documented as of this encounter Care Teams Box Closing Machine Operator Relationship Specialty Start Date End Date Nicky Thibodeaux MD 230 [place] [address] PCP - General Family Medicine 04/20/18 Wu Manzo MD [address] [place] [address] Pain Medicine 03/29/24 Feroz Ascencio MD [address] [place] [phone] Orthopaedic Surgery 06/15/24 Rolanda Tirado Biology TutorAppliquer 06/25/23 TREASURE [facility] 04/26/24 documented as of this encounter
--- OUTSIDE RECORDS SUMMARY | 2025-01-24 06:26 | XMS_ITS | Encounter Summary ---
Author Organization [employer] Address 75 [facility] 7t [place] [address] Care Team Providers Care Mill Operator Helper Name Role Phone Nicky Thibodeaux MD Primary Care Provider +1- [phone] Wu Manzo MD Unavailable Feroz Ascencio MD Unavailable Reason for Visit * Reason Onset Date Comments Durable Medical Equipment 08/07/2022 Encounter Details Date Type Department Care Team (Late st Contact Info) Description 08/07/2022 Telephone [facility] 230 [place] [address] Nicky Thibodeaux MD 230 [place] [address] Durable Medical Equipment Social History Tobacco Use [...] - 08/14/2022 9:23 AM EDT Tc from [facility] requesting status on a form send over for [facility]. Please contact Renzo at [phone] * Telephone Encounter - Wellington Smith - 08/07/2022 9:57 AM EDT Tc from [facility] with [facility] requesting a status on a form sent over for a [employer] Grab bar. Please contact renzo at [phone] documented in this encounter Plan of Treatment Upcoming Encounters Date Type Department Care Team (Late st Contact Info) Description 03/29/2025 2:15 PM EST Office Visit [facility] [address] [place] [address] Nicky Thibodeaux MD [address] [place] [address] documented as of this encounter Visit Diagnoses Not on filedocumented in this encounter Additional Health Concerns Assessment Noted Time PHQ-9 Depression Total Score: 22 023 2:09 PM EDT documented as of this encounter Care Teams Mill Operator Helper Relationship Specialty Start Date End Date Nicky Thibodeaux MD [address] [place] [address] PCP - General Family Medicine 04/20/18 Wu Manzo MD [address] [place] [address] [address] [place] [address] Pain Medicine 03/29/24 Feroz Ascencio MD [address] [place] [phone] Orthopaedic Surgery 06/15/24 Rolanda Tirado Chute BuilderPhoto Technician 06/25/23 TREASURE [facility] 04/26/24 documented as of this encounter
--- OUTSIDE RECORDS SUMMARY | 2025-01-24 06:26 | XMS_ITS | Encounter Summary ---
Author Organization [employer] Address [address] [facility] [address] 7t [place] [address] Care Team Providers Care Knurling Machine Tender Name Role Phone Nicky Thibodeaux MD Primary Care Provider +1- [phone] Wu Manzo MD Unavailable Feroz Ascencio MD Unavailable [phone] Reason for Visit * Reason Onset Date Comments March Recalls 01/23/2025 Encounter Details Date Type Department Care Team (Late st Contact Info) Description 01/23/2025 Telephone [facility] 230 [place] [address] Nicky Thibodeaux MD 230 [place] [address] March Recalls Social History Tobacco Use Types Packs/Day Years Used Date Smoking Tobacco: Every Day Cigarettes Passive Smoke Exposure: Current Smokeless Tobacco: Never Depression Answer Date Recorded Patient Health Questionnaire-9 Score 12/28/2024 Patient Health Questionnaire-9 Score 12/28/2024 Last PHQ-9: Questionnaire Data Not on file 0 12/28/2024 Housing Stability Answer Date Recorded What is your housing situation today? I have ruy pizano 12/28/[address] you li ve. Do you have problems with any of the following? None of the above 12/28/2024 Food Insecurity Answer Date Recorded Within the past 12 months, y ou worried that your food would run out before you got money to buy more: Never True 12/28/2024 Within the past 12 months,th e food you bought just didn't last and you didn't have enough money to get more: Never True 01/2025 Transportation Answer Date Recorded In the past 12 months, has l ack of transportation kept you from medical appts, meetings, work or from getting things needed for daily living? No 12/28/2024 Utilities Answer Date Recorded In the past 12 months, has t he electric, gas, oil or water company threatened to shut off services in your home? No 12/28/2024 Depression Answer Date Recorded Patient Health Questionnaire-2 Score 5 12/28/2024 Internet Access Answer Date Recorded Internet Access Q1 No 12/28/2024 Internet Access Q2 I do not want or need it 12/19 Comments Unknown Sex and Gender Information Value Date Recorded Sex Assigned at Female 02/17/2022 10:18 AM EDT Legal Sex Female 10:18 AM EDT Gender Identity Female 02/17/2022 10:18 AM EDT Sexual Orientation Straight 02/17/2022 10 :18 AM EDT documented as of this encounter Miscellaneous Notes * Telephone Encounter - Tonja Noble MA - 01/23/2025 2:09 PM EDT ..Telephone call to patient to schedule the following recall: Visit type: Physical Appointment notes: Physical Patient agree to appointment on 03/29/2025 at 2:15 PM with [place]. documented in this encounter Plan of Treatment Upcoming Encounters Date Type Department Care Team (Late st Contact Info) Description 03/29/2025 2:15 PM EST Office Visit [facility] [address] [place] [address] Nicky Thibodeaux MD [address] [place] [address] documented as of this encounter Visit Diagnoses Not on filedocumented in this encounter Additional Health Concerns Assessment Noted Time PHQ-9 Depression Total Score: 19 025 4:37 PM EDT documented as of this encounter Care Teams Knurling Machine Tender Relationship Specialty Start Date End Date Nicky Thibodeaux MD [address] [place] [address] PCP - General Family Medicine 04/20/18 Wu Manzo MD [address] [place] [address] Pain Medicine 03/29/24 Feroz Ascencio MD [address] [place] [phone] Orthopaedic Surgery 06/15/24 Rolanda Tirado Sys DirMultimedia Producer 06/25/23 TREASURE [facility] 04/26/24 documented as of this encounter
--- OUTSIDE RECORDS SUMMARY | 2025-01-24 06:26 | XMS_ITS | Encounter Summary ---
Author Organization [employer] Address [address] [place] [address] 7t [place] [address] Care Team Providers Care Civil Engineering Designer Name Role Phone Washburn, Nicky CASTAÑEDA Primary Care Provider +1- [phone] Wu Manzo MD Unavailable Feroz Ascencio MD Unavailable [phone] Reason for Visit * Reason Comments Med Refill Encounter Details Date Type Department Care Team (Late st Contact Info) Description 09/30/2022 Refill [facility]INE 230 [place] [address] Deborah Stratton MD 230 [place] [address] Chronic migraine without aura without status migrainosus, [...] Description 03/29/2025 2:15 PM EST Office Visit [facility] 230 [place] [address] Nicky Thibodeaux MD 230 [place] [address] documented as of this encounter Visit Diagnoses Diagnosis Chronic migraine without aura without status migrainosus, not intractable documented in this encounter Additional Health Concerns Assessment Noted Time PHQ-9 Depression Total Score: 22 023 2:09 PM EDT documented as of this encounter Care Teams Civil Engineering Designer Relationship Specialty Start Date End Date Nicky Thibodeaux MD 230 [place], [place] [phone] PCP - General Family Medicine 04/20/18 Wu Manzo MD [address] [place] [address] Drive [address] [place] [address] Pain Medicine 03/29/24 Feroz Ascencio MD [address] [place] [phone] Orthopaedic Surgery 06/15/24 Rolanda Tirado Keno Writer / RunnerClient Development Consultant 06/25/23 Latia Guardado PA-C [facility] 04/26/24 documented as of this encounter
--- OUTSIDE RECORDS SUMMARY | 2025-01-24 06:26 | XMS_ITS | Encounter Summary ---
Author Organization [employer] Address [address] [facility] [address] 7t [place] [address] Care Team Providers Care Graphic Art Sales Representative Name Role Phone Nicky Thibodeaux MD Primary Care Provider [phone]- [phone] Wu Manzo MD Unavailable Feroz Ascencio MD Unavailable [phone] Reason for Visit * Reason Onset Date Comments Med Refill 04/29/2023 Encounter Details Date Type Department Care Team (Late st Contact Info) Description 04/29/2023 Telephone [facility] 230 [place] [address] Nicky Thibodeaux MD 230 [place] [address] Med Refill Social History Tobacco Use Types [...] 500 MG tablet To be sent to: [facility]/pharmacy [address] [place] [address] documented in this encounter Plan of Treatment Upcoming Encounters Date Type Department Care Team (Late st Contact Info) Description 03/29/2025 2:15 PM EST Office Visit [facility] 230 [place] [address] Nicky Thibodeaux MD [address] [place] [address] documented as of this encounter Visit Diagnoses Not on filedocumented in this encounter Additional Health Concerns Assessment Noted Time PHQ-9 Depression Total Score: 22 023 2:09 PM EDT documented as of this encounter Care Teams Graphic Art Sales Representative Relationship Specialty Start Date End Date Nicky Thibodeaux MD [address] [place] [address] PCP - General Family Medicine 04/20/18 Wu Manzo MD [address] [facility] [place] [address] Pain Medicine 03/29/24 Feroz Ascencio MD [address] [place] [phone] Orthopaedic Surgery 06/15/24 Rolanda Tirado Dry Wall Installations MechanicGum Remover 06/25/23 TREASURE [facility] 04/26/24 documented as of this encounter
--- OUTSIDE RECORDS SUMMARY | 2025-01-24 06:26 | XMS_ITS | Encounter Summary ---
Author Organization [employer] Address [address] [place] [address] 7t [place] [address] Care Team Providers Care Electric Motorman Name Role Phone Nicky Thibodeaux MD Primary Care Provider [phone]- [phone] Wu Manzo MD Unavailable Feroz Acsencio MD Unavailable [phone] Reason for Visit * Reason Comments Med Refill Encounter Details Date Type Department Care Team (Late st Contact Info) Description 12/11/2022 Refill [facility]INE [address] [place] [address] [phone] Nicky Thibodeaux MD [address] [place] [address] [phone] Social History Tobacco Use Types Packs/Day Years [...] Department Care Team (Late Contact Info) Description 03/29/2025 2:15 PM EST Office Visit [facility] [address] [place] [address] [phone] Nicky Thibodeaux MD [address] [place] [phone] documented as of this encounter Visit Diagnoses Not on filedocumented in this encounter Additional Health Concerns Assessment Noted Time PHQ-9 Depression Total Score: 22 023 2:09 PM EDT documented as of this encounter Care Teams Electric Motorman Relationship Specialty Start Date End Date Nicky Thibodeaux MD [address] [place] [address] PCP - General Family Medicine 04/20/18 Wu Manzo MD [address] [place] [address] [place] [address] Pain Medicine 03/29/24 Feroz Ascencio MD [address] [place] [phone] Orthopaedic Surgery 06/15/24 Rolanda Tirado Radio TesterChemist Assistant 06/25/23 TREASURE [facility] 04/26/24 documented as of this encounter
--- OUTSIDE RECORDS SUMMARY | 2025-01-24 06:26 | XMS_ITS | Encounter Summary ---
Author Organization [employer] Address [address] [facility] 7t [place] [address] Care Team Providers Care Student Teaching Coordinator Name Role Phone Nicky Thibodeaux MD Primary Care Provider [phone] Wu Manzo MD Unavailable Feroz Ascencio MD Unavailable [phone] Reason for Visit * Reason Comments Med Refill Encounter Details Date Type Department Care Team (Late st Contact Info) Description 05/26/2024 Refill [facility] MED[facility]INE [address] [place] [address] Nicky Thibodeaux MD [address] [place] [address] Pain Social History Tobacco Use Types Packs/Day [...] Description 03/29/2025 2:15 PM EST Office Visit [facility] [address] [place] [phone] Nicky Thibodeaux MD [address] [place] [address] documented as of this encounter Visit Diagnoses Diagnosis Pain Generalized pain documented in this encounter Additional Health Concerns Assessment Noted Time PHQ-9 Depression Total Score: 14 024 10:51 AM EST documented as of this encounter Care Teams Student Teaching Coordinator Relationship Specialty Start Date End Date Nicky Thibodeaux MD [address] [place] [address] PCP - General Family Medicine 04/20/18 Wu Manzo MD [address] [place] [address] Pain Medicine 03/29/24 Feroz Ascencio MD [address] [place] [phone] Orthopaedic Surgery 06/15/24 Rolanda Tirado Through OperatorElectrical Engineering Director 06/25/23 TRE[facility]URE [facility] 04/26/24 documented as of this encounter
--- OUTSIDE RECORDS SUMMARY | 2025-01-24 06:26 | XMS_ITS | Encounter Summary ---
Author Organization [employer] Address [address] [facility] 7t [place] [address] Care Team Providers Care Hardwood Floor Layer Name Role Phone Nicky Thibodeaux MD Primary Care Provider [phone]- [phone] Wu Manzo MD Unavailable Feroz Ascencio MD Unavailable [phone] Reason for Visit * Reason Onset Date Comments Nurse Triage 05/11/2024 Encounter Details Date Type Department Care Team (Late st Contact Info) Description 05/11/2024 Telephone [facility] MEDICINE [address] [place] [address] Nicky Thibodeaux MD [address] [place] [address] Nurse Triage Social History Tobacco Use Types [...] or Thursday.Pt wants appt on Thursday when [employer] SAL[employer] is available to bring pt. Reviewed [facility] operating hours and that wait times vary. Unable to book sick on site > 48 hours. Pt advised can call back on Thursday for Thursday scheduled. Reviewed home care advise, ER precautions and reasons to call back. Protocol Used: Dizziness (Adult) Protocol-Based Disposition: Discuss with PCP and Callback by Nurse Today Sent to PCP and [place] team Primary care nurses for follow up [...] Description 03/29/2025 2:15 PM EST Office Visit [facility] MEDICINE [address] [place] [address] Nicky Thibodeaux MD [address] [place] [address] documented as of this encounter Visit Diagnoses Not on filedocumented in this encounter Additional Health Concerns Assessment Noted Time PHQ-9 Depression Total Score: 14 024 10:51 AM EST documented as of this encounter Care Teams Hardwood Floor Layer Relationship Specialty Start Date End Date Nicky Thibodeaux MD [address] [place] [address] PCP - General Family Medicine 04/20/18 Wu Manzo MD [address] [place] [address] Pain Medicine 03/29/24 Feroz Ascencio MD [address] [place] [phone] Orthopaedic Surgery 06/15/24 Rolanda Tirado ReflesherBoatswain'S Mate 06/25/23 Latia Guardado PA-C [facility] 04/26/24 documented as of this encounter
--- OUTSIDE RECORDS SUMMARY | 2025-01-24 06:26 | XMS_ITS | Encounter Summary ---
Author Organization [employer] Address [address] [facility] [address] 7[address] [place] [address] Care Team Providers Care Spout Positioner Name Role Phone Nicky Thibodeaux MD Primary Care Provider [phone] Wu Manzo MD Unavailable Feroz Ascencio MD Unavailable [phone] Encounter Details Date Type Department Care Team (Late st Contact Info) Description 2023 Orders Only [facility] MEDICINE [address] [place], [place] [phone] Nicky Thibodeaux MD [address] [place] [address] Social History Tobacco Use Types Packs/Day Years [...] Description 03/29/2025 2:15 PM EST Office Visit [facility] MEDICINE [address] [place] [address] Nicky Thibodeaux MD [address] [place] [address] documented as of this encounter Visit Diagnoses Not on filedocumented in this encounter Additional Health Concerns Assessment Noted Time PHQ-9 Depression Total Score: 22 023 2:09 PM EDT documented as of this encounter Care Teams Spout Positioner Relationship Specialty Start Date End Date Nicky Thibodeaux MD [address] [place] [address] PCP - General Family Medicine 04/20/18 Wu Manzo MD [address] [place] [address] Pain Medicine 03/29/24 Feroz Ascencio MD [address] [place] [phone] Orthopaedic Surgery 06/15/24 Rolanda Tirado Sink MakerAged Or Disabled Care Worker 06/25/23 TREASURE [facility] 04/26/24 documented as of this encounter
--- OUTSIDE RECORDS SUMMARY | 2025-01-24 06:26 | XMS_ITS | Encounter Summary ---
Author Organization [employer] Address [address] [facility] [address] 7[address] [place] [address] Care Team Providers Care Concrete Mixer Loader Truck Mounted Name Role Phone Nicky Thibodeaux MD Primary Care Provider [phone] Wu Manzo MD Unavailable Feroz Ascencio MD Unavailable [phone] Reason for Visit * Reason Onset Date Comments [place] 10/12/2023 Encounter Details Date Type Department Care Team (Late st Contact Info) Description 10/12/2023 Telephone [facility] MEDICINE [address] [place] [address] Nicky Thibodeaux MD [address] [place] [address] [place] Social History Tobacco Use Types Packs/Day [...] Description 03/29/2025 2:15 PM EST Office Visit [facility] MEDICINE [address] [place] [address] Nicky Thibodeaux MD [address] [place] [address] documented as of this encounter Visit Diagnoses Not on filedocumented in this encounter Additional Health Concerns Assessment Noted Time PHQ-9 Depression Total Score: 22 023 2:09 PM EDT documented as of this encounter Care Teams Concrete Mixer Loader Truck Mounted Relationship Specialty Start Date End Date Nicky Thibodeaux MD [address] [place] [address] PCP - General Family Medicine 04/20/18 Wu Manzo MD [address] [place] [address] Pain Medicine 03/29/24 Feroz Ascencio MD [address] [place] [phone] Orthopaedic Surgery 06/15/24 Rolanda Tirado Meter SetterFacial Operator 06/25/23 TREASURE [facility] 04/26/24 documented as of this encounter
--- OUTSIDE RECORDS SUMMARY | 2025-01-24 06:26 | XMS_ITS | Clinical Summary ---
Author Organization [employer] Address [address] [place] [address] [address] [place] [address] Care Team Providers Care Master Brewer Name Role Phone Nicky Thibodeaux MD Primary Care Provider [phone] Wu Manzo MD Unavailable Feroz Ascencio MD Unavailable Allergies Active Allergy Reactions Criticality Noted Date Comments Aspirin GI intolerance Low 01/03/2013 Ibuprofen GI intolerance Low 12/29/2014 Medications Spiriva HandiHaler 18 MCG inhalation capsuleIndication s:Chronic obstructive pulmonary disease, unspecified COPD type (CMS/HCC) ([facility]) INHALE 1 CAPSULE VIA HANDIHALER ONCE DAILY AT THE SAME TIME EVERY DAY 30 capsule 11 023 Active cyanocobalamin (Vitamin B-12) 100 MCG tablet Take 100 mcg by mouth Once per day. Active Multiple Vitamins-Minerals (Multivitamin Adults 50+) tablet 1 tablet daily Activ e fluticasone furoate (Arnuity Ellipta) 100 MCG/ACT inhalerIndication s:Chronic obstructive pulmonary disease, unspecified COPD type (CMS/HCC) (HCC) Inhale 1 puff Once per day. Rinse [...] with anxiety 50 mg. Active HYDROcodone-aceta minophen ([place]) 5-325 MG tabletIndications :Chronic low back pain, [...] TO 6 HOURS NEEDED 18 g 1 Active albuterol (2.5 MG/3ML) 0.083% nebulizer solution INHALE 3ML BY NEBULIZATION ROUTE FOUR TIMES EVERY DAY IF NEEDED 75 mL 3 Active omeprazole (PriLOSEC) [address] capsuleIndication s:Abdominal pain, unspecified abdominal location TAKE 1 CAPSULE BY MOUTH EVERY DAY BEFORE A MEAL 90 capsule 1 025 Active Tirzepatide-Weigh t Management (Zepbound) 7.5 MG/0.5ML solution auto-injectorIndi cations:Class 2 severe obesity due to excess calories with serious comorbidity and body mass index (BMI) of 35.0 to 35.9 in adult Inject 0.5 mL (7.5 mg) under the [...] FOR PAIN 30 g 1 025 Active SUMAtriptan (Imitrex) 50 MG [...] MUSCLE PAIN 90 tablet 3 025 Active D3-1000 25 MCG (1000 UT) capsuleIndication s:Vitamin D deficiency TAKE 1 CAPSULE BY MOUTH EVERY DAY 90 capsule 1 025 Active Acetaminophen Extra Strength 500 MG tabletIndications :Pain TAKE 1 TABLET BY MOUTH EVERY 8 HOURS NEEDED 90 tablet 025 Active diclofenac (Voltaren) 75 MG EC tabletIndications :Osteoarthritis of hip, unspecified laterality, unspecified osteoarthritis type TAKE 1 TABLET BY MOUTH TWICE A DAY NEEDED 60 tablet 025 Active cholecalciferol (D3-1000) 25 MCG (1000 UT) capsuleIndication s:Vitamin D deficiency TAKE 1 CAPSULE BY MOUTH EVERY DAY 90 capsule 1 025 2024 Discontinued diclofenac (Voltaren) 75 MG EC tabletIndications :Osteoarthritis of hip, unspecified laterality, unspecified osteoarthritis type TAKE 1 TABLET BY MOUTH TWICE A DAY NEEDED 60 tablet 025 2024 Discontinued Acetaminophen Extra Strength 500 MG tabletIndications :Pain TAKE 1 TABLET BY MOUTH EVERY 8 HOURS NEEDED 90 tablet 025 2024 Discontinued Active Problems [...] due after 03/14/25 -eye care facilitated by [facility] -dental home is [facility] care proxy paperwork completed by to the patient 07/17/23 Assessment & Plan (03/14/2024 11:23 AM EST): -next physical exam due after 03/14/25 -eye care facilitated by [facility] -dental home is [facility] -[facility] care proxy paperwork completed by to the patient 07/17/23 Assessment & Plan (11/19/2023 11:08 AM EDT): -next physical exam due after 12/11/23 -eye care facilitated by [facility] -dental home is [facility] -[facility] care proxy paperwork completed by to the patient 07/17/23 Assessment & Plan (07/17/2023 10:10 AM EDT): -next physical exam due after 12/11/23 -eye care facilitated by [facility] -dental home is [facility] -[facility] care proxy paperwork completed [...] Status post lumbar spinal fusion 09/03/2022 Overview (01/02/2025): Her pain is not controlled. Followed by [...] the MRI image on the disc from [facility] where she had MRI performed. I also requested her to read brochures about [employer] and [employer]. -note 12/30/24 at [facility] case reviewed with dr taveras, he would offer her ACDF C4-5, C5-6. i will call her and update her. Assessment & Plan (07/17/2023 10:03 AM EDT): Her pain is not controlled. Dillon asked her to reach out to her original prescriber for Vicodin at [facility]. She is 7 weeks post-op sugery and is weaning her percocet's. Dillon explained since she is on Ambien, gabapentin, and benzodiazapine I would not be able to safely prescribe the medications through our program. Assessment & Plan (12/15/2022 9:38 AM EDT): Her pain is not controlled. Dillon asked her to reach out to her original prescriber for Vicodin at [facility]. She is 7 weeks post-op sugery and is weaning her percocet's. Dillon explained since she is on Ambien, gabapentin, and benzodiazapine I would not be able to safely prescribe the medications through our program. Assessment & Plan (09/03/2022 12:12 PM EDT): Her pain is not controlled. Dillon asked her to reach out to her original prescriber for Vicodin at [facility]. She is 7 weeks post-op sugery and is weaning her percocet's. Dillon explained since she is on Ambien, gabapentin, and benzodiazapine I would not be able to safely prescribe the medications through our program. Arthritis 09/02/2022 Cerebrovascular accident (CVA) ([facility]) 023 Overview (11/18/2023): Pt had episode of transient [...] 35.0 to 35.9 in adult 09/02/2022 Overview (12/29/2024): Baseline weight: 228 lbs 09/2023. She has lost approx. 18% of her body weight 12/28/24 -given BMI >30kg/m2 or >27kg/m2 with one or more weight related comorbidities pt is a candidate for glucagon-like peptide-1s (GLP-1) to assist with weight loss -pt has attempted > 3 months of dietary changes and increased physical activity without significant reduction in weight -patient counseled this medication is to be used in combination with reduced calorie diet and increased physical activity -Reviewed w/ pt side effects of GLP1 and how to mitigate incl eating small portions and do not eat through sensation of fullness. -Discussed this medication should be used long-term and that obesity will be treated as a chronic condition. If and when patient stops this medicaion, weight bay come back. -Discussed the potential for thyroid cancer and multiple endocrine neoplasia, rare eye issue and pancreatitis -Discussed more common risks include nausea/vomiting, diarrhea, injection site reaction and gastroparesis. -No personal or family h/o papillary thyroid cancer. No personal h/o pancreatitis. Does/does not have retinopathy. Refrigerate but do not freeze. -In patients who are possible child bearing, we dicussed the changes to fertility as a result of significant weight loss, this can increase fertility. We do not recommend patient become or attempt to become while on weight loss medication. Medication should be stopped at least 2 months prior to attempting conceive. If they do not become while on medicaion, they should stop and follow up with the Obgyn. control discussed. Pt has serious health conditions of severe deconditioning, severe osteoarthritis, hx stroke and hypertension. Weight loss effort tried in the past including diet, exercise were unsuccessful. Will request coverage of Wegovy from insurance 09/23/23. -Wegovy (semaglutide) -PA resubmitted 11/19/23 -Advised to Switch from Wegovy to Zepbound -Start Zepbound (tirzepatide) 03/14/24, 2.5mg subcutaneously q week x 1 month, then increase to 5mg subcutaneously q week. May increased by 2.5mg q 4 weeks with max 15mg/wk -Follow up 4 weeks for weight check and medication titration -Zepbound increased to 7.5mg 09/14/24 -Insurance needs a new prior authorization for her Zepbound, submitted 12/29/24 Assessment & Plan (12/30/2024 12:09 PM EDT): Baseline weight: 228 lbs 09/2023. She has lost approx. 18% of her body weight 12/28/24 -given BMI >30kg/m2 or >27kg/m2 with one or more weight related comorbidities pt is a candidate for glucagon-like peptide-1s (GLP-1) to assist with weight loss -pt has attempted > 3 months of dietary changes and increased physical activity without significant reduction in weight -patient counseled this medication is to be used in combination with reduced calorie diet and increased physical activity -Reviewed w/ pt side effects of GLP1 and how to mitigate incl eating small portions and do not eat through sensation of fullness. -Discussed this medication should be used long-term and that obesity will be treated as a chronic condition. If and when patient stops this medicaion, weight bay come back. -Discussed the potential for thyroid cancer and multiple endocrine neoplasia, rare eye issue and pancreatitis -Discussed more common risks include nausea/vomiting, diarrhea, injection site reaction and gastroparesis. -No personal or family h/o papillary thyroid cancer. No personal h/o pancreatitis. Does/does not have retinopathy. Refrigerate but do not freeze. -In patients who are possible child bearing, we dicussed the changes to fertility as a result of significant weight loss, this can increase fertility. We do not recommend patient become or attempt to become while on weight loss medication. Medication should be stopped at least 2 months prior to attempting conceive. If they do not become while on medicaion, they should stop and follow up with the Obgyn. control discussed. Pt has serious health conditions of severe deconditioning, severe osteoarthritis, hx stroke and hypertension. Weight loss effort tried in the past including diet, exercise were unsuccessful. Will request coverage of Wegovy from insurance 09/23/23. -Wegovy (semaglutide) -BUZZ resubmitted 11/19/23 -Advised to Switch from Wegovy to Zepbound -Start Zepbound (tirzepatide) 03/14/24, 2.5mg subcutaneously q week x 1 month, then increase to 5mg subcutaneously q week. May increased by 2.5mg q 4 weeks with max 15mg/wk -Follow up 4 weeks for weight check and medication titration -Zepbound increased to 7.5mg 09/14/24 -Insurance needs a new prior authorization for her Zepbound, submitted 12/29/24 Assessment & Plan (09/14/2024 12:10 PM EDT): [...] considered to be 1.7 or 2.4 mg fpc. -PA resubmitted 11/19/23 - Advised to Switch [...] considered to be 1.7 or 2.4 mg fpc. -BUZZ resubmitted 11/19/23 Assessment & Plan (09/23/2023 [...] considered to be 1.7 or 2.4 mg fpc. Chronic low back pain 07/23/2022 Overview (08/11/2024): [...] severe pain. She is getting Vicodin from [facility]. She requests opiate medications [...] therapy, multiple injections, and awaiting TENs unit. -[employer] prescribing hydrocodone/APA 5/325 to support instrumented activities [...] the MRI image on the disc from [facility] where she had MRI performed. I also requested her to read brochures about [employer] and [employer]. Assessment & Plan (03/14/2024 11:31 AM EST): [...] severe pain. She is getting Vicodin from [facility]. She requests opiate medications from [...] pain. She sees a therapist and psychiatrist. -[facility] [place] prescribing hydrocodone/APA 5/325 to support instrumented activities [...] severe pain. She is getting Vicodin from [facility]. She requests opiate medications from [place]. We have reviewed her sedating medications together [...] -Referral placed to Gynecology, Dr. Aaron 07/17/23 -[facility] called 09/23/23 stating pt declined appt [...] -Referral placed to Gynecology, Dr. Aaron 07/17/23 -[facility] called 09/23/23 stating pt declined appt [...] -Referral placed to Gynecology, Dr. Aaron 07/17/23 -[facility] called 09/23/23 stating pt declined appt [...] left MARISELA 01/29/[address] Neal in [place] -s/p bilateral GT bursa injection under fluoroscopic guidance 06/13/24 with moderate reduction of pain in bilateral lateral hips -seen by ortho at [facility] 07/21/24 Hip [...] Encounters Date Type Department Care Team Description 01/23/2025 Telephone [facility] [place] [address] Nicky Thibodeaux MD March Recalls 01/23/2025 Travel 01/20/2025 Refill [facility] [place] [place] [address] Nicky Thibodeaux MD Pain; Osteoarthritis of hip, unspecified laterality, unspecified osteoarthritis type 12/28/2024 4:00 PM EDT Office Visit [facility] [place] [address] Nicky Thibodeaux MD Class 2 severe obesity due to excess calories with serious comorbidity and body mass index (BMI) of 35.0 to 35.9 in adult ([facility]) (Primary Dx); Dietary counseling; Exercise counseling; Positive depression screening 12/28/2024 Travel 12/27/2024 Telephone [facility] [place] [address] Nicky Thibodeaux MD chart prep 12/26/2024 Orders Only GENERIC EXTERNAL DATA DEPARTMENT Provider, Generic External Data 12/25/2024 Refill [facility] [place] [address] Nicky Thibodeaux MD Vitamin D deficiency 12/23/2024 Refill [facility] [place] [address] Nicky Thibodeaux MD Chronic migraine without aura without status migrainosus, not intractable; Pain 12/20/2024 Telephone [facility] [place] [address] Nicky Thibodeaux MD Prior Authorization ( PA: Erin) 12/13/2024 Refill [facility] [place] [address] Nicky Thibodeaux MD Osteoarthritis of hip, unspecified laterality, unspecified osteoarthritis type; Pain 12/12/2024 Telephone [facility] [place] [address] Nicky Thibodeaux MD PT1 12/06/2024 Telephone [facility] [address] [place] [address] Nicky Thibodeaux MD 11/24/2024 Refill [facility] [address] [place] [address] Nicky Thibodeaux MD Pain 11/16/2024 Refill [facility] [address] [place] [address] Nicky Thibodeaux MD Pain 11/16/2024 Refill [facility] [address] [place] [address] Chelsi Canseco ANP Pain 11/14/2024 Refill [facility] [address] [place] [address] Angie Eli MD Osteoarthritis of hip, unspecified laterality, unspecified osteoarthritis type; Pain 10/26/2024 Refill [facility] [address] [place] [address] Nicky Thibodeaux MD Pain from Last 3 [...] Sign Reading Time Taken Comments Blood Pressure 139/78 12/28/2024 4:00 PM EDT Pulse 94 12/28/2024 4:00 PM EDT Temperature 37.2 C (98.9 F) 12/28/2024 4:00 PM EDT Respiratory Rate 18 12/28/2024 4:00 PM EDT Oxygen Saturation 99% 12/28/2024 4:00 PM EDT Inhaled Oxygen Concentration - - Weight 84.6 kg (186 lb 6.4 oz) 12/28/2024 4:00 P M EDT Height 167.6 cm (5' 6 ) 12/15/2022 9:25 AM EDT Body Mass Index 30.09 12/15/2022 9:25 AM EDT Plan of Treatment Upcoming Encounters Date Type Department Care Team (Late st Contact Info) Description 03/29/2025 2:15 PM EST Office Visit [facility] [address] [place] [address] Nicky Thibodeaux MD [address] [place], [place] [phone] Health Maintenance Due Date Last Done Comments [...] 09/11/2022 08/02/2021, 08/02/2021 COVID-19 Vaccine ( season) 2024 Influenza Vaccine (#1) 2024 4, 12/29/2012, 01/19/2012 Depression Monitoring 06/27/2025 12/28/2024, 025 Colonoscopy 12/10/2025 12/11/2015 Colorectal Cancer Screening 12/10/2025 Alcohol/Substance Use Screening 12/28/2025 12/28/2024 Disability Screening 12/28/2025 12/28/2024 SDOH Screening 12/28/2025 12/28/2024 Tobacco Screening 12/28/2025 12/28/2024 Mammogram 09/30/2026 09/30/2024, 07/20, 10/29/2020, Additional history exists Dental X-Ray: Full Mouth 01/29/2027 01/29/2024, 11/18 Lipid Panel 12/26/2029 12/26/2024, 06/19, 09/03/2022 DTaP/Tdap/Td Vaccines (4 - Td or [...] Procedure Name Priority Date/Time Associated Diagnosis Comments LIPID PANEL, STANDARD Routine 12/26/2024 10:08 AM EDT COMPREHENSIVE METABOLIC PANEL, FASTING Routine 12/26/2024 10:08 AM EDT CBC WITH AUTO DIFFERENTIAL Routine 12/26/2024 10:08 AM EDT BI MAMMOGRAM SCREENING TOMOSYNTHESIS BILATERAL Routine 09/30/2024 2:45 PM EDT PANORAMIC RADIOGRAPHIC IMAGE Routine 01/29/2024 3:30 PM EDT HEPATITIS C AB W/REFL TO HCV RNA, [...] Relevant to Health Maintenance Results * (ABNORMAL) Comprehensive Metabolic Panel, Fasting (12/26/2024 10:08 AM EDT) Sodium 144 135 - 145 mmol/L [facility] Potassium 4.6 3.3 - 5.1 mmol/L [facility] Chloride 111(H) 96 - 108 mmol/L [facility] Carbon Dioxide 23 22 - 29 mmol/L [facility] Anion Gap 15 12 - 20 [facility] Urea Nitrogen (BUN) 15 9 - 16 mg/dL [facility] Creatinine, Serum 0.98 0.5 - 1.4 mg/dL [facility] Estimated Glomerular Filt Rate 58 [facility] Comment:Chronic Kidney Disea se: Estimated GFR < 60 mL/min/1.79b8Nftree Kidney Disease: Estimated GFR < 15 mL/min/1.73m2 Glucose Fasting 97 60 - 99 mg/dL [facility] Calcium 9.1 8.4 - 10.2 mg/dL [facility] Bilirubin, Total 0.1 0.0 - 1.0 mg/dL [facility] Aspartate Amino Transferase 19 5 - 31 U/L [facility] Alanine Aminotransferase 22 0 - 31 U/L [facility] Total Protein 7.2 6.5 - 8.0 g/dL [facility] Albumin Level 4.2 3.5 - 5.0 g/dL [facility] Alkaline Phosphatase 90 39 - 117 U/L [facility] 12/26/2024 10:0 8 AM EDT 12/26/2024 11:21 AM EDT us Generic External Data Provider LAB BLOOD ORDERAB LES Final Result [facility] [address] [place] [phone] * (ABNORMAL) CBC auto differential (12/26/2024 10:08 AM EDT) White Blood Count 8.3 4.8 - 10.8 X10*3/uL [facility] Red Blood Count 4.05(L) 4.20 - 5.50 X10*6/uL [facility] Hemoglobin 11.4(L) 12.0 - 16.0 g/dl [facility] Hematocrit 35.8(L) 37.0 - 47.0 % [facility] Mean Corpuscular Volume 88.4 80.0 - 98.0 fL [facility] Mean Corpuscular Hemoglobin 28.1 27.0 - 33.0 pg [facility] Mean Corpuscular HGB Conc 31.8 31.0 - 35.0 g/dl [facility] Red Cell Distribution Width 14.3 11.0 - 16.0 % [facility] Platelet Count 281 160 - 400 X10*3/uL [facility] Mean Platelet Volume 10.8 9.4 - 12.3 fL [facility] Neutrophils Percent Auto 67.5 45 - 73 % [facility] Imm Gran Pct Auto 0.2 0.0 - 0.4 % [facility] Lymphocytes Percent Auto 23.6 20 - 40 % [facility] Monocytes Percent Auto 6.9 2 - 11 % [facility] Eosinophils Percent Auto 1.2 0 - 4 % [facility] Basophils Percent Auto 0.6 0 - 2 % [facility] NRBC Pct Auto 0.0 0.0 - 0.2 /100WBC [facility] Neutrophils Absolute Auto 5.6 2.0 - 8.3 x10*3/uL [facility] Imm Gran Abs Auto 0.02 0.00 - 0.03 X10*3/uL [facility] Lymphocytes Absolute Auto 2.0 1.2 - 4.9 X10*3/uL [facility] Monocytes Absolute Auto 0.6 0.1 - 1.2 X10*3/uL [facility] Eosinophils Absolute Auto 0.1 0.0 - 0.4 X10*3/uL [facility] Basophils Absolute Auto 0.1 0.0 - 0.2 X10*3/uL [facility] NRBC Abs Auto 0.000 0.0 - 0.012 X10*3/uL [facility] 12/26/2024 10:0 8 AM EDT 12/26/2024 11:16 AM EDT us Generic External Data Provider LAB BLOOD ORDERAB LES Final Result Performing Organization Address City/[facility] Co de Phone Number [facility] [address] [place] [phone] * (ABNORMAL) Lipid Panel, Standard (12/26/2024 10:08 AM EDT) Triglycerides 198(H) <150 mg/dL [facility] Comment:Desirable Triglyceri de: less than 150 mg/dLBorderline High Triglyceride 150-199 mg/dLHigh Triglyceride: 200-499 mg/dLVery High Triglyceride: greater than or equal to 5OO mg/dL Cholesterol 186 <200 mg/dL [facility] Comment:Desirable Cholestero l: less than 200 mg/dLBorderline High Cholesterol: 200-239 mg/dLHigh Cholesterol: greater than 239 mg/dL LDL Cholesterol Calculated 97 <100 mg/dL [facility] Comment:Desirable LDL: less than 100 mg/dLNear Optimal/Above Optimal LDL: 110- 129 mg/dLBorderline High LDL: 130-159 mg/dLHigh LDL: 160-189 mg/dLVery High LDL: greater than or equal to 190 mg/dL HDL Cholesterol 50 >40 mg/dL [facility] Comment:Desirable HDL: great er than 40 mg/dL Note: This HDL assay may give artificially low results in patients with liver disease. 12/26/2024 10:0 8 AM EDT 12/26/2024 11:21 AM EDT us Generic External Data Provider LAB BLOOD ORDERAB LES Final Result [facility] [address] [place] [phone] * BI Mammogram Screening Tomosynthesis Bilateral (09/30/2024 2:45 PM EDT) Anatomical Region Laterality Modality Breast Bilateral Mammography 09/30/2024 2:45 PM EDT Narrative 10/08/2024 8:50 PM EDT [facility] [address] [place] [address] Mammography Report Signed Patient: Darcy Medina MR#: [id number] : 1965 Acct:[id number] Age/Sex: 59 / F ADM Date: 09/30/24 Loc: HO.MAMMO Attending Dr: Nicky Thiboedaux MD Ordering Physician: Nicky Thibodeaux MD Results: 2B enign Findings Date of Service: 09/30/24 Follow Up: 1 Year From [facility] Mammogram Procedure(s): MM tomosynthesis screening BI Accession Number(s): [id number] cc: Nicky Thibodeaux MD EXAMINATION: MM SCREENING [...] OV> 10/08/242046 DD/ 1445 TD/TT: 09/30/24 1500 Proof Coin Collector: Procedure Note Donotuseinterpreter, Image - 10/08/2024 [facility] [address] [place], [place] [address] Mammography Report Signed Patient: Darcy Medina FMR#: [id number] : 1965Acct:[id number] Age/Sex: 59 / FADM Date: 09/30/24 Loc: HO.MAMMO Attending Dr: Nicky Thibodeaux MD Ordering Physician: Nicky Thibodeaux MDResults: 2B enign Findings Date of Service: 09/30/24Follow Up: 1 Year From Orig inal Mammogram Procedure(s): MM tomosynthesis screening BI Accession Number(s): [id number] cc: Nicky Thibodeaux MD EXAMINATION: MM SCREENING [...] OV> 10/08/242046 DD/ 1445 TD/TT: 09/30/24 1500 [employer] Coin Collector: Nicky Thibodeaux MD IMG BI PROCEDURES Edited R esult - Final * Hepatitis C Antibody with Reflex to HCV, RNA, Quantitative, Real-Time PCR (09/03/2022 11:58 AM EDT) Hepatitis C Antibody NON-REACT DILLON NON-REACT DILLON [employer] [employer] [place] [employer] Index 0.02 <1.00 [employer] Comment: HCV antibody was non-reactive. There is no laboratory evidence of HCV infection. In most cases, no further action is required. However, if recent HCV exposure is suspected, a test for HCV RNA (test code 42730) is suggested. For additional information please refer to http://education.[employer]/faq/ELT61m7 (This link is being provided for informational/ educational purposes only.) Blood Venous blood specimen / Unknown 09/03/2022 11:58 AM EDT 09/03/2022 11:58 AM EDT Narrative [facility] - 09/07/2022 11:33 PM EDT FASTING:YES FASTING: YES Nicky Thibodeaux MD LAB BLOOD ORDERABLES Final Result [facility] [address] [place] [phone] [facility] [address] [place] [phone] * HIV-1/2 Antigen and Antibodies, Fourth Generation, with Reflexes (09/03/2022 11:58 AM EDT) HIV Antigen/Antibody, 4th Generation NON-REAC TIVE NON-REAC TIVE [employer] Comment: HIV-1 antigen and HIV-1/HIV-2 antibodies were [...] purpose. For additional information please refer to http://Viajala.[employer]/faq/ISF318 (This link is being provided for informational/ educational purposes only.) The performance of this assay has not been clinically validated in patients less than 2 years old. Blood Venous blood specimen / Unknown 09/03/2022 11:58 AM EDT 09/03/2022 11:58 AM EDT Narrative [facility] - 09/07/2022 11:33 PM EDT FASTING:YES FASTING: YES Nicky Thibodeaux MD LAB BLOOD ORDERABLES Final Result [facility] [address] [place] [address], [place] [address] [facility] [address] [place] [address] * (ABNORMAL) THINPREP TIS PAP AND HPV mRNA E6/E7, CT/NG, TRICH (08/02/2021 11:49 AM EDT) Chlamydia trachomatis RNA, TMA, Urogenital NOT DETECTED NOT DETECTED [facility] Clinical Information: None given [facility] COMMENT SEE COMMENT [facility] Comment: The analytical performance characteristics of this assay, when used to test SurePath(TM) specimens have been determined by [employer]. The modifications have not been cleared or approved by the FDA. This assay has been validated pursuant to the CLIA regulations and is used for clinical purposes. For additional information, please refer to https://Viajala.[employer]/faq/VUP826 (This link is being provided for information/ [...] has been evaluated with computer assisted technology. [facility] Welfare Visitor: SEE COMMENT [facility] Comment: DCR, CT(ASCP) CT screening location: [place] [address] HPV nRNA E6/E7 Detected(A) Not Detected [facility] Comment: Methodology: Principal Product Manager-Mediated Amplification This assay detects E6/E7 viral messenger RNA (mRNA) from 14 high-risk HPV types (16,18,31,33,35,39,45,51,52,56,58,59,66,68). The analytical performance characteristics of this assay have been determined by [employer]. The modifications have not been cleared or approved by the FDA. This assay has been validated pursuant to the CLIA regulations and is used for clinical purposes. For additional information, please refer to http://Viajala.[employer]/faq/XYA633o1 (This link if provided for information/ educational purposes only.) Interpretation/Res ult: SEE COMMENT [facility] Comment: Negative for intraepithelial lesion or malignancy. Atrophic pattern; predominantly parabasal cells LMP: NONE GIVEN [facility] Neisseria gonorrhoeae RNA, TMA, Urogenital NOT DETECTED NOT DETECTED [facility] Prev. BX: NONE GIVEN [facility] Prev. PAP: NONE GIVEN [facility] Review Welfare Visitor: SEE COMMENT [facility] Comment: JXM, CT(ASCP) CT screening location: [place] [address] SOURCE: None given [facility] Statement Of Adequacy: SATISFACTORY FOR EVALUATION [facility] Trichomonas vaginalis, QL, TMA, PAP Vial NOT DETECTED NOT DETECTED [facility] Comment: The analytical performance characteristics of this assay have been determined by [employer]. The modifications have not been cleared or approved by the FDA. This assay has been validated pursuant to the CLIA regulations and is used for clinical purposes. For additional information, please refer to http://education.[employer]/ faq/Trichomonastma (This link is being provided for information/ educational purposes only.) 08/02/2021 11:4 9 AM EDT us Nicky Thibodeaux MD LAB PATHOLOGY ORDERABLES F inal Result [facility] [address] [place] [address], * Pap Smear (08/02/2021 12:00 AM EDT) Swab Nicky Thibodeaux MD LAB CYTOLOGY ORDERABLES Fi nal Result Performing Organization Address City/[facility]/ZIP Co de Phone Number [facility] [address] [place] [address] [phone] * Colonoscopy (12/11/2015) Colonoscopy normal with Dr. Delgado Historical Provider HEALTH MAINTENANCE Final Result from Last 3 Months or Most Recently Relevant to Health Maintenance Insurance [facility] [employer] STAND ADULT Advance Directives Documents on File Type Date Recorded Patient Capsule Filler Expl anation Advance Directives and Living Will 07/17/2023 Health Care Proxy 07/17/23 Care Teams Master Brewer Relationship Specialty Start Date End Date Morelia, MD Nicky [address] [place] [address] PCP - General Family Medicine 04/20/18 Wu Manzo MD [address] [place] [address] Pain Medicine 03/29/24 Feroz Ascencio MD [address] [place] [phone] Orthopaedic Surgery 06/15/24 Rolanda Tirado Human Machine Interface EngineerReal Estate Executive Assistant 06/25/23 Latia Guardado PA-C [facility] 04/26/24
--- OUTSIDE RECORDS SUMMARY | 2025-01-24 06:26 | XMS_ITS | Encounter Summary ---
Author Organization [employer] Address [address] [facility] 7t [place] [address] Care Team Providers Care Robotics Software Engineer Name Role Phone Nuckolls, Nicky CASTAÑEDA Primary Care Provider +1- [phone] Wu Manzo MD Unavailable Feroz Ascencio MD Unavailable [phone] Reason for Visit * Reason Comments Med Refill Encounter Details Date Type Department Care Team (Late st Contact Info) Description 04/29/2023 Refill [facility] [address] [place] [address] Chelsi Canseco ANP [address] [place] [address] Social History Tobacco Use Types Packs/Day Years [...] Description 03/29/2025 2:15 PM EST Office Visit [facility] [address] [place] [address] Nicky Thibodeaux MD [address] [place] [address] documented as of this encounter Visit Diagnoses Not on filedocumented in this encounter Additional Health Concerns Assessment Noted Time PHQ-9 Depression Total Score: 22 023 2:09 PM EDT documented as of this encounter Care Teams Robotics Software Engineer Relationship Specialty Start Date End Date Nicky Thibodeaux MD [address] [place] [address] PCP - General Family Medicine 04/20/18 Wu Manzo MD [address] [place] [address] Pain Medicine 03/29/24 Feroz Ascencio MD [address] [place] [phone] Orthopaedic Surgery 06/15/24 Rolanda Tirado Ocular Care TechnicianFibre Optic Cable Splicer 06/25/23 Latia Guardado PA-C [facility] 04/26/24 documented as of this encounter
--- OUTSIDE RECORDS SUMMARY | 2025-01-24 06:26 | XMS_ITS | Encounter Summary ---
Author Organization [employer] Address [address] [facility] 7t [place] [address] Care Team Providers Care Railroad Switchman Name Role Phone Nicky Thibodeaux MD Primary Care Provider [phone]- [phone] Wu Manzo MD Unavailable Feroz Ascencio MD Unavailable Reason for Visit * Reason Comments Med Refill Encounter Details Date Type Department Care Team ([facility] Contact Info) Description 08/26/2022 Refill [facility] & PEDS [address] [place] [address] Nicky Thibodeaux MD [address] [place] [address] Pain Social History Tobacco Use Types Packs/Day [...] Upcoming Encounters Date Type Department Care Team ([facility] Contact Info) Description 03/29/2025 2:15 PM EST Office Visit [facility] MED[facility] [address] [place] [address] Nicky Thibodeaux MD [address] [place] [address] documented as of this encounter Visit Diagnoses Diagnosis Pain Generalized pain documented in this encounter Additional Health Concerns Assessment Noted Time PHQ-9 Depression Total Score: 22 023 2:09 PM EDT documented as of this encounter Care Teams Railroad Switchman Relationship Specialty Start Date End Date Nicky Thibodeaux MD [address] [place] [address] PCP - General Family Medicine 04/20/18 Wu Manzo MD [address] [place] [address] [place] [address] Pain Medicine 03/29/24 Feroz Ascencio MD [address] [place] [phone] Orthopaedic Surgery 06/15/24 Rolanda Tirado Truss Driver HelperSurgical Clinical Reviewer 06/25/23 Latia Guardado PA-C [facility] 04/26/24 documented as of this encounter
--- OUTSIDE RECORDS SUMMARY | 2025-01-24 06:26 | XMS_ITS | Encounter Summary ---
Author Organization [employer] Address [address] [facility] 7t [place] [address] Care Team Providers Care Prosthetic Technician Name Role Phone Nicky Thibodeaux MD Primary Care Provider [phone]- [phone] Wu Manzo MD Unavailable Feroz Ascencio MD Unavailable [phone] Encounter Details Date Type Department Care Team (Latest Contact Info) Description 04/05/2021 Abstract [facility] CONVERSIONS Dental, Provider, DDS Social [...] Description 03/29/2025 2:15 PM EST Office Visit [facility] [address] [place] [address] Nicky Thibodeaux MD 230 [place] [address] documented as of this encounter Visit Diagnoses Not on filedocumented in this encounter Care Teams Prosthetic Technician Relationship Specialty Start Date End Date Nicky Thibodeaux MD [address] [place] [address] [phone] PCP - General Family Medicine 04/20/18 Wu Manzo MD [address] [place] [address] Drive [address] [place] [address] Pain Medicine 03/29/24 Feroz Ascencio MD [address] [place] [phone] Orthopaedic Surgery 06/15/24 Rolanda Tirado Supervisor FilesCrawler Crane Operator 06/25/23 TREASURE [facility] 04/26/24 documented as of this encounter
--- OUTSIDE RECORDS SUMMARY | 2025-01-24 06:26 | XMS_ITS | Encounter Summary ---
Author Organization [employer] Address [address] [facility] 7t [place] [address] Care Team Providers Care Dynamicist Name Role Phone Nicky Tihbodeaux MD Primary Care Provider [phone]- [phone] Wu Manzo MD Unavailable Feroz Ascencio MD Unavailable [phone] Reason for Visit * Reason Comments Med Refill Encounter Details Date Type Department Care Team (Late st Contact Info) Description 05/19/[address] [facility]INE [address] [place] [address] Nicky Thibodeaux MD [address] [place], [place] [phone] Asthma, unspecified asthma severity, unspecified whether complicated, [...] 2:15 PM EST Office Visit [facility] [address] [place] [address] Nicky Thibodeaux MD [address] [place] [address] documented as of this encounter Visit Diagnoses Diagnosis Asthma, unspecified asthma severity, unspecified whether complicated, unspecified whether persistent documented in this encounter Additional Health Concerns Assessment Noted Time PHQ-9 Depression Total Score: 22 023 2:09 PM EDT documented as of this encounter Care Teams Dynamicist Relationship Specialty Start Date End Date Nicky Thibodeaux MD [address] [place] [address] PCP - General Family Medicine 04/20/18 Wu Manzo MD [address] [place] [address] Pain Medicine 03/29/24 Feroz Ascencio MD [address] [place] [phone] Orthopaedic Surgery 06/15/24 Rolanda Tirado Stoneworking Belt SanderMachine Sweeper Brush Maker 06/25/23 Latia Guardado PA-C [facility] 04/26/24 documented as of this encounter
--- OUTSIDE RECORDS SUMMARY | 2025-01-24 06:26 | XMS_ITS | Encounter Summary ---
Author Organization [employer] Address [address] [facility] [address] 7t [place] [address] Care Team Providers Care Bag Making Machine Tender Name Role Phone Nicky Thibodeaux MD Primary Care Provider [phone]- [phone] Wu Manzo MD Unavailable Feroz Ascencio MD Unavailable [phone] Encounter Details Date Type Department Care Team (Late st Contact Info) Description 03/11/2023 Abstract [facility] MED[facility]INE [address] [place], [place] [phone] Thuy Valenzuela Social History Tobacco Use Types [...] Description 03/29/2025 2:15 PM EST Office Visit [facility] [address] [place] [address] Nicky Thibodeaux MD [address] [place] [address] documented as of this encounter Visit Diagnoses Not on filedocumented in this encounter Additional Health Concerns Assessment Noted Time PHQ-9 Depression Total Score: 22 023 2:09 PM EDT documented as of this encounter Care Teams Bag Making Machine Tender Relationship Specialty Start Date End Date Nicky Thibodeaux MD [address] [place] [address] PCP - General Family Medicine 04/20/18 Wu Manzo MD [address] [place] [address] Pain Medicine 03/29/24 Feroz Ascencio MD [address] [place] [phone] Orthopaedic Surgery 06/15/24 Rolanda Tirado Duplicating Machine OperatorCertified Medical Dosimetrist 06/25/23 Latia Guardado PA-C [facility] 04/26/24 documented as of this encounter
--- OUTSIDE RECORDS SUMMARY | 2025-01-24 06:26 | XMS_ITS | Encounter Summary ---
Author Organization [employer] Address [address] [place] [address] 7t [place] [address] Care Team Providers Care Sewage Disposal Worker Name Role Phone Nicky Thibodeaux MD Primary Care Provider [phone]- [phone] Wu Manzo MD Unavailable Feroz Ascencio MD Unavailable [phone] Encounter Details Date Type Department Care Team (Late st Contact Info) Description 05/22/2022 Orders Only [facility] [address] [place] [phone] Nereida Horner LPN Social History Tobacco Use [...] 2:15 PM EST Office Visit [facility] [address] [place] [address] [phone] Nicky Thibodeaux MD [address] [place] [address] [phone] documented as of this encounter Visit Diagnoses Not on filedocumented in this encounter Care Teams Sewage Disposal Worker Relationship Specialty Start Date End Date Nicky Thibodeaux MD [address] [place] [phone] PCP - General Family Medicine 04/20/18 Wu Manzo MD [address] [facility] [address] [place] [address] Pain Medicine 03/29/24 Feroz Ascencio MD [address] [place] [phone] Orthopaedic Surgery 06/15/24 Rolanda Tirado Counter CutterPediatric Psychiatrist 06/25/23 TRE[facility]URE [facility] 04/26/24 documented as of this encounter
--- OUTSIDE RECORDS SUMMARY | 2025-01-24 06:26 | XMS_ITS | Encounter Summary ---
Author Organization [employer] Address [address] [place] [address] 7t [place] [address] Care Team Providers Care Bull Riveter Name Role Phone Nicky Thibodeaux MD Primary Care Provider [phone]- [phone] Wu Manzo MD Unavailable Feroz Ascencio MD Unavailable Reason for Visit * Reason Comments Med Refill Encounter Details Date Type Department Care Team (Late Contact Info) Description 2022 Refill [facility] 230 [place] [address] Krystin Frederick, GRACIELA Chronic migraine without aura [...] Description 03/29/2025 2:15 PM EST Office Visit [facility] 230 [place], [place] [phone] Nicky Thibodeaux MD 230 [place] [address] documented as of this encounter Visit Diagnoses Diagnosis Chronic migraine without aura without status migrainosus, not intractable documented in this encounter Care Teams Bull Riveter Relationship Specialty Start Date End Date Nicky Thibodeaux MD [address] [place] [address] PCP - General Family Medicine 04/20/18 Wu Manzo MD [address] [place] [address] [address] [place] [address] Pain Medicine 03/29/24 Feroz Ascencio MD [address] [place] [phone] Orthopaedic Surgery 06/15/24 Rolanda Tirado Glue Mill OperatorEcdis N Navigation Operator 06/25/23 TREASURE [facility] 04/26/24 documented as of this encounter
--- OUTSIDE RECORDS SUMMARY | 2025-01-24 06:26 | XMS_ITS | Encounter Summary ---
Author Organization [employer] Address [address] [facility] 7t [place] [address] Care Team Providers Care Real Estate Analyst Name Role Phone Nicky Thibodeaux MD Primary Care Provider [phone]- [phone] Wu Manzo MD Unavailable Feroz Ascencio MD Unavailable [phone] Encounter Details Date Type Department Care Team (Latest Contact Info) Description 01/23/2025 Travel Social History Tobacco Use Types Packs/Day Years Used Date Smoking Tobacco: Every Day Cigarettes Passive Smoke Exposure: Current Smokeless Tobacco: Never Depression Answer Date Recorded Patient Health Questionnaire-9 Score 19 12/28/2024 Patient Health Questionnaire-9 Score 19 12/28/2024 Last PHQ-9: Questionnaire Data Not on [...] Description 03/29/2025 2:15 PM EST Office Visit [facility] [address] [place] [address] Nicky Thibodeaux MD [address] [place] [address] documented as of this encounter Visit Diagnoses Not on filedocumented in this encounter Additional Health Concerns Assessment Noted Time PHQ-9 Depression Total Score: 19 025 4:37 PM EDT documented as of this encounter Care Teams Real Estate Analyst Relationship Specialty Start Date End Date Nicky Thibodeaux MD 230 [place] [address] PCP - General Family Medicine 04/20/18 Wu Manzo MD [address] [place] [address] Pain Medicine 03/29/24 Feroz Ascencio MD [address] [place] [phone] Orthopaedic Surgery 06/15/24 Rolanda Tirado Back Tender Paper MachineCarbon Furnace Operator Helper 06/25/23 TREASURE [facility] 04/26/24 documented as of this encounter
--- OUTSIDE RECORDS SUMMARY | 2025-01-24 06:26 | XMS_ITS | Encounter Summary ---
Author Organization [employer] Address [address] [facility] 7t [place] [address] Care Team Providers Care Chemical Reclamation Equipment Operator Name Role Phone Nicky Thibodeaux MD Primary Care Provider [phone]- [phone] Wu Manzo MD Unavailable Feroz Ascencio MD Unavailable [phone] Reason for Visit * Reason Comments Med Refill Encounter Details Date Type Department Care Team (Late st Contact Info) Description 01/20/2025 Refill [facility] MED[facility]INE 230 [place] [address] Nicky Thibodeaux MD 230 [place] [address] Pain; Osteoarthritis of hip, unspecified laterality, unspecified [...] your housing situation today? I have ruy piazno 12/28/[address] you li [...] Description 03/29/2025 2:15 PM EST Office Visit [facility] MED[facility]INE [address] [place] [address] Nicky Thibodeaux MD [address] [place] [address] documented as of this encounter Visit Diagnoses Diagnosis Pain Generalized pain Osteoarthritis of hip, unspecified laterality, unspecified osteoarthritis type documented in this encounter Additional Health Concerns Assessment Noted Time PHQ-9 Depression Total Score: 19 025 4:37 PM EDT documented as of this encounter Care Teams Chemical Reclamation Equipment Operator Relationship Specialty Start Date End Date Nicky Thibodeaux MD [address] [place] [address] PCP - General Family Medicine 04/20/18 Wu Manzo MD [address] [place] [address] Pain Medicine 03/29/24 Feroz Ascencio MD [address] [place] [phone] Orthopaedic Surgery 06/15/24 Rolanda Tirado Twist MakerManager Equipment 06/25/23 TREASURE [facility] 04/26/24 documented as of this encounter
--- OUTSIDE RECORDS SUMMARY | 2025-01-24 06:26 | XMS_ITS | Clinical Summary ---
Author Organization [facility] Address [address] [place] [phone] Care Team Providers Care Reinforcement Maker Name Role Phone Nicky Thibodeaux MD Primary Care Provider +1- [phone] Social History Tobacco Use Types Packs/Day Years [...] Last Done Comments Breast Cancer Screening 1965 Colorectal Cancer Screening: Colonoscopy 1965 DTaP,Tdap,and Td Vaccines (1 - Tdap) 1984 Hepatitis B Vaccines (1 of 3 - 19+ 3-dose series) 1984 Cervical Cancer Screening: P ap Smear 1986 Pneumococcal Vaccine: 50+ Ye ars (1 of 1 - PCV) 07/21/2015 Zoster Vaccines (1 of 2) 07/21/2015 HIV Screening 03/30/2022 Hepatitis C Screening 03/30/2022 [...] age to complete this topic Care Teams Reinforcement Maker Relationship Specialty Start Date End Date Nicky hTibodeaux MD [address] [place] [phone] PCP - General Internal Medicine 12/21/13
--- OUTSIDE RECORDS SUMMARY | 2025-01-24 06:26 | XMS_ITS | Encounter Summary ---
Author Organization [employer] Address [address] [place] [address] 7t [place] [address] Care Team Providers Care Railroad Shop Inspector Name Role Phone Nicky Thibodeaux MD Primary Care Provider [phone]- [phone] Wu Manzo MD Unavailable Feroz Ascencio MD Unavailable [phone] Encounter Details Date Type Department Care Team (Late st Contact Info) Description 05/05/2022 Abstract [facility] MED[facility]INE [address] [place] [address] [phone] Nicky Thibodeaux MD [address] [place] [address] [phone] Social History Tobacco Use Types Packs/Day Years [...] 2:15 PM EST Office Visit [facility] MEDICINE [address] [place] [address] [phone] Nicky Thibodeaux MD [address] [place] [address] [phone] documented as of this encounter Procedures Procedure Name Priority Date/Time Associated Diagnosis Comments COLPOSCOPY Routine 09/11/2021 12:00 AM EDT PAP SMEAR Routine 08/02/2021 12:00 AM EDT MAMMOGRAPHY Routine 10/29/2020 COLONOSCOPY Routine 12/11/2015 documented in this encounter Results * Colposcopy (09/11/2021 12:00 AM EDT) Historical Provider IN CLINIC/BEDSIDE ORDERAB LES Final Result Performing Organization Address City/[facility]/ZIP Co de Phone Number [facility] [address] [place] [phone] [phone] * Pap Smear (08/02/2021 12:00 AM EDT) Swab Nicky Thibodeaux MD LAB CYTOLOGY ORDERABLES Fi nal Result Performing Organization Address [facility]/ZIP Co de Phone Number [facility] [address] [place] [address] [phone] * Mammography (10/29/2020) Mammogram BIRADS 2 Anatomical Region Laterality Modality Other Historical Provider HEALTH MAINTENANCE Final Result * Colonoscopy (12/11/2015) Colonoscopy normal with Dr. Delgado Historical Provider HEALTH MAINTENANCE Final Result documented in this encounter Visit Diagnoses Not on filedocumented in this encounter Care Teams Railroad Shop Inspector Relationship Specialty Start Date End Date Nicky Thibodeaux MD [address] [place] [address] PCP - General Family Medicine 04/20/18 Wu Manzo MD [address] [place] [address] Pain Medicine 03/29/24 Feroz Ascencio MD [address] [place] [phone] Orthopaedic Surgery 06/15/24 Rolanda Tirado Laser Systems EngineerClinical Coordinator 06/25/23 TREASURE [facility] 04/26/24 documented as of this encounter
--- OUTSIDE RECORDS SUMMARY | 2025-01-24 06:26 | XMS_ITS | Encounter Summary ---
Author Organization [employer] Address [address] [facility] 7t [place] [address] Care Team Providers Care Chisel Trimmer Name Role Phone Nicky Thibodeaux MD Primary Care Provider +1- [phone] Wu Manzo MD Unavailable Feroz Ascencio MD Unavailable [phone] Reason for Visit * Reason Onset Date Comments pt1 10/12/2024 Encounter Details Date Type Department Care Team (Late st Contact Info) Description 10/12/2024 Telephone [facility] [address] [place] [address] Nicky Thibodeaux MD 230 [place] [address] pt1 Social History Tobacco Use Types Packs/Day [...] EDT CHW Cheyenne Carpio submitted pt1 to [facility] for location below and will take up to 7 days to getapproved. CHW placed call to patient to let her know, patient understood and will call if she has any concerns. documented in this encounter Plan of Treatment Upcoming Encounters Date Type Department Care Team (Late st Contact Info) Description 03/29/2025 2:15 PM EST Office Visit [facility] 230 [place] [address] Nicky Thibodeaux MD [address] [place] [address] documented as of this encounter Visit Diagnoses Not on filedocumented in this encounter Additional Health Concerns Assessment Noted Time PHQ-9 Depression Total Score: 14 024 10:51 AM EST documented as of this encounter Care Teams Chisel Trimmer Relationship Specialty Start Date End Date Nicky Thibodeaux MD 230 [place] [address] PCP - General Family Medicine 04/20/18 Wu Manzo MD [address] [place] [address] Pain Medicine 03/29/24 Feroz Ascencio MD [address] [place] [phone] Orthopaedic Surgery 06/15/24 Rolanda Tirado Freight BrokerSheet Metal Layout Mechanic 06/25/23 TRE[facility]URE [facility] 04/26/24 documented as of this encounter
--- OUTSIDE RECORDS SUMMARY | 2025-01-24 06:26 | XMS_ITS | Encounter Summary ---
Author Organization [employer] Address [address] [facility] 7t [place] [address] Care Team Providers Care Cryptoanalysis Teacher Name Role Phone Nicky Thibodeaux MD Primary Care Provider +1- [phone] Wu Manzo MD Unavailable Ferzo Ascencio MD Unavailable [phone] Reason for Visit * Reason Comments Med Refill Encounter Details Date Type Department Care Team (Late st Contact Info) Description 04/09/2023 Refill [facility] 230 [place] [address] Nicky Thibodeaux MD 230 [place] [address] Pain Social History Tobacco Use Types Packs/Day [...] Description 03/29/2025 2:15 PM EST Office Visit [facility] [address] [place] [address] Nicky Thibodeaux MD 230 [place] [address] documented as of this encounter Visit Diagnoses Diagnosis Pain Generalized pain documented in this encounter Additional Health Concerns Assessment Noted Time PHQ-9 Depression Total Score: 22 023 2:09 PM EDT documented as of this encounter Care Teams Cryptoanalysis Teacher Relationship Specialty Start Date End Date Nicky Thibodeaux MD [address] [place] [address] PCP - General Family Medicine 04/20/18 Wu Manzo MD [address] [place] [address] Pain Medicine 03/29/24 Feroz Ascencio MD [address] [place] [phone] Orthopaedic Surgery 06/15/24 Rolanda Tirado Parts RemoverElectric Refrigerator Preparer 06/25/23 Latia Guardado PA-C [facility] 04/26/24 documented as of this encounter
--- OUTSIDE RECORDS SUMMARY | 2025-01-24 06:26 | XMS_ITS | Encounter Summary ---
Author Organization [employer] Address [address] 7t [place] [address] Care Team Providers Care Presiding Judge Name Role Phone Nicky Thibodeaux MD Primary Care Provider [phone]- [phone] Wu Manzo MD Unavailable Feroz Ascencio MD Unavailable [phone] Reason for Visit * Reason Onset Date Comments PT-1 12/08/2023 Encounter Details Date Type Department Care Team (Late st Contact Info) Description 12/08/2023 Telephone [facility] 230 [place] [address] Nicky Thibodeaux MD [address] [place] [address] PT-1 Social History Tobacco Use Types Packs/Day [...] Y/N: Yes Provider name or facility name: [facility] pain management Facility Address: [address] [place] [address] Escort needed: Y/N: No Do you have a wheelchair: Y/N: No If yes- Manual or electric: N/A (uses walker) Visits: twice a month documented in this encounter Plan of Treatment Upcoming Encounters Date Type Department Care Team (Late st Contact Info) Description 03/29/2025 2:15 PM EST Office Visit [facility] [address] [place] [address] Nicky Thibodeaux MD [address] [place] [address] documented as of this encounter Visit Diagnoses Not on filedocumented in this encounter Additional Health Concerns Assessment Noted Time PHQ-9 Depression Total Score: 22 023 2:09 PM EDT documented as of this encounter Care Teams Presiding Judge Relationship Specialty Start Date End Date Nicky Thibodeaux MD [address] [place] [address] PCP - General Family Medicine 04/20/18 Wu Manzo MD [address] [place] [address] [address] [place] [address] Pain Medicine 03/29/24 Feroz Ascencio MD [address] [place] [phone] Orthopaedic Surgery 06/15/24 Rolanda Tirado Wastewater Treatment Plant OperatorTrain System Operator 06/25/23 Latia Guardado PA-C [facility] 04/26/24 documented as of this encounter
--- OUTSIDE RECORDS SUMMARY | 2025-01-24 06:26 | XMS_ITS | Encounter Summary ---
Author Organization [email or web address] Address [address] [facility] 7t [place] [address] Care Team Providers Care Frog Shaker Name Role Phone Jennings, Nicky CASTAÑEDA Primary Care Provider [phone]- [phone] Wu Manzo MD Unavailable Feroz Ascencio MD Unavailable [phone] Reason for Visit * Reason Onset Date Comments Medication Question 12/11/2022 Encounter Details Date Type Department Care Team (Late st Contact Info) Description 12/11/2022 Telephone [facility]INE 230 [place] [address] Chelsi Canseco ANP 230 [place] [address] Medication Question Social History Tobacco Use Types [...] Description 03/29/2025 2:15 PM EST Office Visit [facility] 230 [place] [address] Nicky Thibodeaux MD 230 [place] [address] documented as of this encounter Visit Diagnoses Diagnosis Essential (primary) hypertension Unspecified essential hypertension documented in this encounter Additional Health Concerns Assessment Noted Time PHQ-9 Depression Total Score: 22 023 2:09 PM EDT documented as of this encounter Care Teams Frog Shaker Relationship Specialty Start Date End Date Nicky Thibodeaux MD 230 [place] [address] PCP - General Family Medicine 04/20/18 Wu Manzo MD [address] [place] [address] Drive [address] [place] [address] Pain Medicine 03/29/24 Feroz Ascencio MD [address] [place] [phone] Orthopaedic Surgery 06/15/24 Rolanda Tirado Carton Machine OperatorYeast Pusher 06/25/23 Latia Guardado PA-C [facility] 04/26/24 documented as of this encounter
--- OUTSIDE RECORDS SUMMARY | 2025-01-24 06:26 | XMS_ITS | Encounter Summary ---
Author Organization [employer] Address [address] [facility] 7t [place] [address] Care Team Providers Care Keg Varnisher Name Role Phone Nicky Thibodeaux MD Primary Care Provider [phone]- [phone] Wu Manzo MD Unavailable Feroz Ascencio MD Unavailable [phone] Encounter Details Date Type Department Care Team (Late Contact Info) Description 08/12/[address] [facility] [address] [place] [address] Nicky Thibodeaux MD [address] [place] [address] Social History Tobacco Use Types Packs/Day Years [...] Description 03/29/2025 2:15 PM EST Office Visit [facility] 230 [place] [address] Nicky Thibodeaux MD 230 [place] [address] documented as of this encounter Visit Diagnoses Not on filedocumented in this encounter Additional Health Concerns Assessment Noted Time PHQ-9 Depression Total Score: 22 023 2:09 PM EDT documented as of this encounter Care Teams Keg Varnisher Relationship Specialty Start Date End Date Nicky Thibodeaux MD 230 [place] [address] PCP - General Family Medicine 04/20/18 Wu Manzo MD [address] [place] [address] [address] [place] [address] Pain Medicine 03/29/24 Feroz Ascencio MD [address] [place] [phone] Orthopaedic Surgery 06/15/24 Rolanda Tirado Power Plant ManagerHand Quilter 06/25/23 TREASURE [facility] 04/26/24 documented as of this encounter
== END 2025-01-24 06:25 | disposition home or self-care (01) ==
LOC: CF 06:24
PROVIDERS: Visit Provider Anesthesiology
DX: M46.1 Sacroiliitis, not elsewhere classified (principal); M53.3 Sacrococcygeal disorders, not elsewhere classified
CPT/HCPCS: 27096; J2003; J2795; J3301; Q9967

== ENCOUNTER 2025-01-24 13:50 | Outpatient (AMB) | payer MEDICAID, SELFPAY ==
[2025-01-24 14:03] VITALS: BP 133/80; PULSE 76; RESP 16; O2SAT 100; BMI 29.7
--- NOTE | 2025-01-24 14:03 | A.OFFVIS_ITS ---
Vital Signs 01/24/25 14:03 01/24/25 14:38 Height 5 ft 6 in 5 ft 6 in Weight 184 lb 184 lb BMI 29.7 29.7 BP 133/80 160/87 H Blood Pressure Location Lt brachial Lt brachial Position Sitting Sitting Respiration 16 16 Pulse 76 78 Pulse Source Pulse Oximeter Pulse Oximeter Pulse Oximetry (%) 100 98 Oxygen Delivery Method Room Air Room Air Intake Visit Reasons: Bilateral Therapeutic SIJ Injections Allergies aspirin (ASPIRIN) Allergy (Mild, Verified 12/29/24 15:26) GI UPSET ibuprofen (IBUPROFEN) Allergy (Mild, Verified 12/29/24 15:26) GI UPSET PFSH Medical History Poor dentition Neck pain Low back pain Anxiety and depression History of panic attacks Chronic headaches Uses roller walker Nicotine dependence, cigarettes, uncomplicated (~1978) Hyperlipidemia History of TIA (transient ischemic attack) (~2019) Personal history of nicotine dependence (~1978) COPD (chronic obstructive pulmonary disease) Osteoarthritis of left hip Hypertension Surgical History History of appendectomy (~02/13/02) Status post total hip replacement, right (~04/26/13) Social History Household Members: None Housing: Apartment Are you a primary home health care case manager to a significant other at home: No Do you presently have visiting nurse or other home services: No Comment: patient refused bed alarm Patient Tobacco Use Status: Current everyday Tobacco user Tobacco use type: Cigarette Cigarette Packs Per Day: 1 Cigarettes Per Day: 20.0 Years Smoked: 42 Second Hand Smoke Exposure: No Current occupational status: unemployed Current occupation: Right Handed Female Reproductive History Menstrual Age of Menarche: 13 Physical Exam Vital Signs: Last Vital Signs Pulse 76 01/24/25 14:03 Resp 16 01/24/25 14:03 BP 133/80 01/24/25 14:03 Pulse Ox 100 01/24/25 14:03 Oxygen Delivery Method Room Air 01/24/25 14:03 BMI result Body Mass Index 29.7 Assessment & Plan Assessment & Plan (1) Sacroiliac joint dysfunction of both sides: Code(s): M53.3 - Sacrococcygeal disorders, not elsewhere classified Category: Medical (2) Sacroiliitis: Code(s): M46.1 - Sacroiliitis, not elsewhere classified Category: Medical Plan Bilateral therapeutic sacroiliac joint injection. Informed consent was thoroughly explained to the patient before the procedure.? The patient came to the operating room.? She was positioned prone on operating table with a pillow under her abdomen.? Time-out was performed delineating correct site and side of the procedure, nature of the injection, name and date of of the patient. The lower back and upper buttocks of the patient was prepped with ChloraPrep and draped with sterile utility towels.? C-arm was brought over the operating field the image of the right sacroiliac joint was demonstrated on the screen. Tilting machine contralateral to the left the anterior portion of sacroiliac joint was superimposed of the posterior portion of the sacroiliac joint. After that projection of the sacroiliac joint to the skin was injected with mixture of lidocaine 2 % and ropivacaine 0.5% to form a skin wheal. After that 22 gauge 3- 1/2 inch needle was inserted through the skin wheal and advanced to the sacroiliac joint. After that injection of the contrast was performed delineating intra-articular spread of the contrast. After that injection of the ropivacaine 0.5% 4 mL mixed with Kenalog 40 mg c was performed into the each joint. Total dose of Kenalog was 80 mg. Upon completion of the right-sided injection injection of the left sacroiliac joint with performed in mirroring fashion. The needle was removed sterile Band-Aid was applied. Patient tolerated the procedure well. Orders: Orders [place] guidance in treatment room Today M53.3 - Sacrococcygeal disorders, not elsewhere classified Coding Level of Care Code Procedure Only Diagnoses Sacroiliac joint dysfunction of both sides M53.3 Sacroiliitis M46.1
[2025-01-24 14:38] VITALS: BP 160/87; PULSE 78; RESP 16; O2SAT 98; BMI 29.7
--- OUTSIDE RECORDS SUMMARY | 2025-01-24 17:04 | XMS_ITS | Encounter Summary ---
Author Organization [employer] Address [address] [facility] [address] 7t [place] [address] Care Team Providers Care Family Dentist Name Role Phone Nicky Thibodeaux MD Primary Care Provider [phone]- [phone] Wu Manzo MD Unavailable Feroz Ascencio MD Unavailable [phone] Encounter Details Date Type Department Care Team (Late st Contact Info) Description 03/11/2023 Abstract [facility]INE 230 [place], [place] [phone] Thuy Valenzuela Social History Tobacco Use Types [...] Description 03/29/2025 2:15 PM EST Office Visit [facility] 230 [place] [address] Nicky Thibodeaux MD [address] [place] [address] documented as of this encounter Visit Diagnoses Not on filedocumented in this encounter Additional Health Concerns Assessment Noted Time PHQ-9 Depression Total Score: 22 023 2:09 PM EDT documented as of this encounter Care Teams Family Dentist Relationship Specialty Start Date End Date Nicky Thibodeaux MD [address] [place] [address] PCP - General Family Medicine 04/20/18 Wu Manzo MD [address] [place] [address] Pain Medicine 03/29/24 Feroz Ascencio MD [address] [place] [phone] Orthopaedic Surgery 06/15/24 Rolanda Tirado Porcelain SlusherWeekend Caregiver 06/25/23 Latia Guardado PA-C [facility] 04/26/24 documented as of this encounter
--- OUTSIDE RECORDS SUMMARY | 2025-01-24 17:04 | XMS_ITS | Encounter Summary ---
Author Organization [employer] Address [address] [facility] 7t [place] [address] Care Team Providers Care Boring And Filling Machine Operator Name Role Phone Nicky Thibodeaux MD Primary Care Provider [phone]- [phone] Wu Manzo MD Unavailable Feroz Ascencio MD Unavailable [phone] Reason for Visit * Reason Comments Med Refill Encounter Details Date Type Department Care Team (Late st Contact Info) Description 04/09/2023 Refill [facility] 230 [place] [address] Nicky Thibodeaux MD 230 [place] [address] Pain Social History Tobacco Use Types Packs/Day [...] 03/29/2025 2:15 PM EST Office Visit [facility] [address] [place] [address] Nicky Thibodeaux MD 230 [place] [address] documented as of this encounter Visit Diagnoses Diagnosis Pain Generalized pain documented in this encounter Additional Health Concerns Assessment Noted Time PHQ-9 Depression Total Score: 22 023 2:09 PM EDT documented as of this encounter Care Teams Boring And Filling Machine Operator Relationship Specialty Start Date End Date Nicky Thibodeaux MD 230 [place] [address] PCP - General Family Medicine 04/20/18 Wu Manzo MD [address] [place] [address] Pain Medicine 03/29/24 Feroz Ascencio MD [address] [place] [phone] Orthopaedic Surgery 06/15/24 Rolanda Tirado Educational Institution CuratorNeurology Teacher 06/25/23 Latia Guardado PA-C [facility] 04/26/24 documented as of this encounter
--- OUTSIDE RECORDS SUMMARY | 2025-01-24 17:04 | XMS_ITS | Encounter Summary ---
Author Organization [employer] Address [address] [facility] [address] 7t [place] [address] Care Team Providers Care Child Care Supervisor Name Role Phone Nicky Thibodeaux MD Primary Care Provider [phone]- [phone] Wu Manzo MD Unavailable Feroz Ascencio MD Unavailable [phone] Reason for Visit * Reason Onset Date Comments Med Refill 04/29/2023 Encounter Details Date Type Department Care Team (Late st Contact Info) Description 04/29/2023 Telephone [facility]INE 230 [place] [address] Nicky Thibodeaux MD 230 [place] [address] Med Refill Social History Tobacco Use Types [...] 500 MG tablet To be sent to: [facility]/pharmacy [address] [place] [address] documented in this encounter Plan of Treatment Upcoming Encounters Date Type Department Care Team (Late st Contact Info) Description 03/29/2025 2:15 PM EST Office Visit [facility] [address] [place] [address] Nicky Thibodeaux MD 230 [place] [address] documented as of this encounter Visit Diagnoses Not on filedocumented in this encounter Additional Health Concerns Assessment Noted Time PHQ-9 Depression Total Score: 22 023 2:09 PM EDT documented as of this encounter Care Teams Child Care Supervisor Relationship Specialty Start Date End Date Nicky Thibodeaux MD 230 [place] [address] PCP - General Family Medicine 04/20/18 Wu Manzo MD [address] [place] [address] Pain Medicine 03/29/24 Feroz Ascencio MD [address] [place] [phone] Orthopaedic Surgery 06/15/24 Rolanda Tirado Silo WorkerPhlebotomist Lab Assistant 06/25/23 TREASURE [facility] 04/26/24 documented as of this encounter
--- OUTSIDE RECORDS SUMMARY | 2025-01-24 17:04 | XMS_ITS | Encounter Summary ---
Author Organization [employer] Address [address] [place] [address] 7t [place] [address] Care Team Providers Care Fire Protection Inspector Name Role Phone Nicky Thibodeaux MD Primary Care Provider [phone]- [phone] Wu Manzo MD Unavailable Feroz Ascencio MD Unavailable [phone] Reason for Visit * Reason Comments Med Refill Encounter Details Date Type Department Care Team (Late Contact Info) Description 2022 Refill [facility] 230 [place] [address] Krystin Frederick, GRACIELA Chronic migraine without aura [...] Description 03/29/2025 2:15 PM EST Office Visit [facility] 230 [place], [place] [phone] Nicky Thibodeaux MD 230 [place] [address] documented as of this encounter Visit Diagnoses Diagnosis Chronic migraine without aura without status migrainosus, not intractable documented in this encounter Care Teams Fire Protection Inspector Relationship Specialty Start Date End Date Nicky Thibodeaux MD [address] [place] [address] PCP - General Family Medicine 04/20/18 Wu Manzo MD [address] [place] [address] [address] [place] [address] Pain Medicine 03/29/24 Feroz Ascencio MD [address] [place] [phone] Orthopaedic Surgery 06/15/24 Rolanda Tirado RegraderContract Project Manager 06/25/23 TREASURE [facility] 04/26/24 documented as of this encounter
--- OUTSIDE RECORDS SUMMARY | 2025-01-24 17:04 | XMS_ITS | Encounter Summary ---
Author Organization [employer] Address [address] [facility] 7t [place] [address] Care Team Providers Care Air Quality Technician Name Role Phone Alcona, Nicky CASTAÑEDA Primary Care Provider [phone]- [phone] Wu Manzo MD Unavailable Feroz Ascencio MD Unavailable [phone] Reason for Visit * Reason Comments Med Refill Encounter Details Date Type Department Care Team (Late st Contact Info) Description 04/29/2023 Refill [facility]ICINE 230 [place] [address] Chelsi Canseco ANP [address] [place] [address] Social History Tobacco Use Types Packs/Day Years [...] 2:15 PM EST Office Visit [facility]ICINE [address] [place] [address] Nicky Thibodeaux MD [address] [place] [address] documented as of this encounter Visit Diagnoses Not on filedocumented in this encounter Additional Health Concerns Assessment Noted Time PHQ-9 Depression Total Score: 22 023 2:09 PM EDT documented as of this encounter Care Teams Air Quality Technician Relationship Specialty Start Date End Date Nicky Thibodeaux MD 230 [place] [address] PCP - General Family Medicine 04/20/18 Wu Manzo MD [address] [place] [address] Pain Medicine 03/29/24 Feroz Ascencio MD [address] [place] [phone] Orthopaedic Surgery 06/15/24 Rolanda Tirado Grazing AideMeat Counter Worker 06/25/23 Latia Guardado PA-C [facility] 04/26/24 documented as of this encounter
--- OUTSIDE RECORDS SUMMARY | 2025-01-24 17:04 | XMS_ITS | Encounter Summary ---
Author Organization [employer] Address [address] [facility] 7t [place] [address] Care Team Providers Care Senior Energy Analyst Name Role Phone Nicky Thibodeaux MD Primary Care Provider [phone]- [phone] Wu Manzo MD Unavailable Feroz Ascencio MD Unavailable [phone] Reason for Visit * Reason Comments Med Refill Encounter Details Date Type Department Care Team (Late st Contact Info) Description 05/19/2023 Refill [facility] 230 [place] [address] Nicky Thibodeaux MD [address] [place], [place] [phone] Asthma, unspecified asthma severity, unspecified whether complicated, [...] Description 03/29/2025 2:15 PM EST Office Visit [facility] [address] [place] [address] Nicky Thibodeaux MD [address] [place] [address] documented as of this encounter Visit Diagnoses Diagnosis Asthma, unspecified asthma severity, unspecified whether complicated, unspecified whether persistent documented in this encounter Additional Health Concerns Assessment Noted Time PHQ-9 Depression Total Score: 22 023 2:09 PM EDT documented as of this encounter Care Teams Senior Energy Analyst Relationship Specialty Start Date End Date Nicky Thibodeaux MD [address] [place] [address] PCP - General Family Medicine 04/20/18 Wu Manzo MD [address] [place] [address] Pain Medicine 03/29/24 Feroz Ascencio MD [address] [place] [phone] Orthopaedic Surgery 06/15/24 Rolanda Tirado Television Repair TeacherFarmworker Machine 06/25/23 Latia Guardado PA-C [facility] 04/26/24 documented as of this encounter
--- OUTSIDE RECORDS SUMMARY | 2025-01-24 17:05 | XMS_ITS | Encounter Summary ---
Author Organization [employer] Address [address] [facility] [address] [facility] [address] 7t [place] [address] Care Team Providers Care Hall Tender Name Role Phone Nicky Thibodeaux MD Primary Care Provider +1- [phone] Wu Manzo MD Unavailable Feroz Ascencio MD Unavailable [phone] Reason for Visit * Reason Onset Date Comments Pre-visit Planning 11/09/2023 Encounter Details Date Type Department Care Team (Late st Contact Info) Description 11/09/2023 Telephone [facility] 230 [place] [address] Nicky Thibodeaux MD 230 [place] [address] Pre-visit Planning Social History Tobacco Use Types [...] Description 03/29/2025 2:15 PM EST Office Visit [facility] 230 [place] [address] Nicky Thibodeaux MD [address] [place] [address] documented as of this encounter Visit Diagnoses Not on filedocumented in this encounter Additional Health Concerns Assessment Noted Time PHQ-9 Depression Total Score: 22 023 2:09 PM EDT documented as of this encounter Care Teams Hall Tender Relationship Specialty Start Date End Date Nicky Thibodeaux MD 230 [place] [address] PCP - General Family Medicine 04/20/18 Wu Manzo MD [address] [place] [address] Pain Medicine 03/29/24 Feroz Ascencio MD [address] [place] [phone] Orthopaedic Surgery 06/15/24 Rolanda Tirado Cable DrillerLaborer Gold Leaf 06/25/23 TREASURE [facility] 04/26/24 documented as of this encounter
--- OUTSIDE RECORDS SUMMARY | 2025-01-24 17:05 | XMS_ITS | Encounter Summary ---
Author Organization [employer] Address [address] [facility] 7t [place] [address] Care Team Providers Care Air Analyst Name Role Phone Nicky Thibodeaux MD Primary Care Provider +1- [phone] Wu Manzo MD Unavailable Feroz Ascencio MD Unavailable [phone] Reason for Visit * Reason Onset Date Comments Durable Medical Equipment 08/07/2022 Encounter Details Date Type Department Care Team (Late st Contact Info) Description 08/07/2022 Telephone [facility] 230 [place] [address] Nicky Thibodeaux MD 230 [place] [address] Durable Medical Equipment Social History Tobacco Use [...] - 08/14/2022 9:23 AM EDT Tc from [facility] requesting status on a form send over for [facility]. Please contact Renzo at [phone] * Telephone Encounter - Wellington Smith - 08/07/2022 9:57 AM EDT Tc from [facility] with [facility] requesting a status on a form sent over for a [facility] Grab bar. Please contact renzo at [phone] documented in this encounter Plan of Treatment Upcoming Encounters Date Type Department Care Team (Late st Contact Info) Description 03/29/2025 2:15 PM EST Office Visit [facility] [address] [place] [address] Nicky Thibodeaux MD [address] [place] [address] documented as of this encounter Visit Diagnoses Not on filedocumented in this encounter Additional Health Concerns Assessment Noted Time PHQ-9 Depression Total Score: 22 023 2:09 PM EDT documented as of this encounter Care Teams Air Analyst Relationship Specialty Start Date End Date Nicky Thibodeaux MD [address] [place] [address] PCP - General Family Medicine 04/20/18 Wu Manzo MD [address] [place] [address] Drive [address] [place] [address] Pain Medicine 03/29/24 Feroz Ascencio MD [address] [place] [phone] Orthopaedic Surgery 06/15/24 Rolanda Tirado Earring MakerGroup Practice Pediatrician 06/25/23 TREASURE [facility] 04/26/24 documented as of this encounter
--- OUTSIDE RECORDS SUMMARY | 2025-01-24 17:05 | XMS_ITS | Encounter Summary ---
Author Organization [employer] Address [address] [facility] [address] 7t [place] [address] Care Team Providers Care Oil Heater Operator Name Role Phone Nicky Thibodeaux MD Primary Care Provider +1- [phone] Wu Manzo MD Unavailable Feroz Ascencio MD Unavailable [phone] Encounter Details Date Type Department Care Team (Late st Contact Info) Description 2023 Orders Only [facility] 230 [place], [place] [phone] Nicky Thibodeaux MD 230 [place] [address] Social History Tobacco Use Types Packs/Day Years [...] Description 03/29/2025 2:15 PM EST Office Visit [facility] 230 [place] [address] Nicky Thibodeaux MD [address] [place] [address] documented as of this encounter Visit Diagnoses Not on filedocumented in this encounter Additional Health Concerns Assessment Noted Time PHQ-9 Depression Total Score: 22 023 2:09 PM EDT documented as of this encounter Care Teams Oil Heater Operator Relationship Specialty Start Date End Date Nicky Thibodeaux MD 230 [place] [address] PCP - General Family Medicine 04/20/18 Wu Manzo MD [address] [place] [address] Pain Medicine 03/29/24 Feroz Ascencio MD [address] [place] [phone] Orthopaedic Surgery 06/15/24 Rolanda Tirado Director Information SecurityEncoding Machine Operator 06/25/23 TREASURE [facility] 04/26/24 documented as of this encounter
--- OUTSIDE RECORDS SUMMARY | 2025-01-24 17:05 | XMS_ITS | Clinical Summary ---
Author Organization [facility] Address [id number] [place] [phone] Care Team Providers Care Wood Preserving Plant Laborer Name Role Phone Nicky Thibodeaux MD Primary Care Provider +1- [phone] Social History Tobacco Use Types Packs/Day Years [...] age to complete this topic Care Teams Wood Preserving Plant Laborer Relationship Specialty Start Date End Date Nicky Thibodeaux MD [address] [place] [phone] PCP - General Internal Medicine 12/21/13
--- OUTSIDE RECORDS SUMMARY | 2025-01-24 17:05 | XMS_ITS | Encounter Summary ---
Author Organization [employer] Address [address] [address] 7t [place] [address] Care Team Providers Care It Investment/Portfolio Manager Name Role Phone Nicky Thibodeaux MD Primary Care Provider [phone]- [phone] Wu Manzo MD Unavailable Feroz Ascencio MD Unavailable [phone] Reason for Visit * Reason Onset Date Comments March Recalls 01/23/2025 Encounter Details Date Type Department Care Team (Late st Contact Info) Description 01/23/2025 Telephone [facility]INE 230 [place] [address] Nicky Thibodeaux MD 230 [place] [address] March Recalls Social History Tobacco Use Types [...] EST Office Visit [facility] [address] [place] [address] Nicky Thibodeaux MD [address] [place] [address] documented as of this encounter Visit Diagnoses Not on filedocumented in this encounter Additional Health Concerns Assessment Noted Time PHQ-9 Depression Total Score: 19 025 4:37 PM EDT documented as of this encounter Care Teams It Investment/Portfolio Manager Relationship Specialty Start Date End Date Nicky Thibodeaux MD [address] [place] [address] PCP - General Family Medicine 04/20/18 Wu Manzo MD [address] [place] [address] Pain Medicine 03/29/24 Feroz Ascencio MD [address] [place] [phone] Orthopaedic Surgery 06/15/24 Rolanda Tirado Report CheckerOpen Claims Representative 06/25/23 TREASURE [facility] 04/26/24 documented as of this encounter
--- OUTSIDE RECORDS SUMMARY | 2025-01-24 17:05 | XMS_ITS | Encounter Summary ---
Author Organization [employer] Address [address] [facility] 7t [place] [address] Care Team Providers Care Coffee Urn Attendant Name Role Phone Nikcy Thibodeaux MD Primary Care Provider +1- [phone] Wu Manzo MD Unavailable Feroz Ascencio MD Unavailable [phone] Reason for Visit * Reason Comments Med Refill Encounter Details Date Type Department Care Team (Late st Contact Info) Description 01/20/2025 Refill [facility] 230 [place] [address] Nicky Thibodeaux MD 230 [place] [address] Pain; Osteoarthritis of hip, unspecified laterality, unspecified [...] Description 03/29/2025 2:15 PM EST Office Visit [facility] [address] [place] [address] Nicky Thibodeaux MD [address] [place] [address] documented as of this encounter Visit Diagnoses Diagnosis Pain Generalized pain Osteoarthritis of hip, unspecified laterality, unspecified osteoarthritis type documented in this encounter Additional Health Concerns Assessment Noted Time PHQ-9 Depression Total Score: 19 025 4:37 PM EDT documented as of this encounter Care Teams Coffee Urn Attendant Relationship Specialty Start Date End Date Nicky Thibodeaux MD [address] [place] [address] PCP - General Family Medicine 04/20/18 Wu Manzo MD [address] [facility] [address] [place] [address] Pain Medicine 03/29/24 Feroz Ascencio MD [address] [place] [phone] Orthopaedic Surgery 06/15/24 Rolanda Tirado Bakery Team MemberReference Library Assistant 06/25/23 TREASURE [facility] 04/26/24 documented as of this encounter
--- OUTSIDE RECORDS SUMMARY | 2025-01-24 17:05 | XMS_ITS | Encounter Summary ---
Author Organization [employer] Address [address] [facility] [address] 7t [place] [address] Care Team Providers Care Cement Gun Operator Name Role Phone Nicky Thibodeaux MD Primary Care Provider [phone]- [phone] Wu Manzo MD Unavailable Feroz Ascencio MD Unavailable [phone] Reason for Visit * Reason Onset Date Comments PA 10/12/2023 Encounter Details Date Type Department Care Team (Late st Contact Info) Description 10/12/2023 Telephone [facility] 230 [place] [address] Nicky Thibodeaux MD 230 [place] [address] PA Social History Tobacco Use Types Packs/Day [...] 03/29/2025 2:15 PM EST Office Visit [facility] 230 [place] [address] Nicky Thibodeaux MD 230 [place] [address] documented as of this encounter Visit Diagnoses Not on filedocumented in this encounter Additional Health Concerns Assessment Noted Time PHQ-9 Depression Total Score: 22 023 2:09 PM EDT documented as of this encounter Care Teams Cement Gun Operator Relationship Specialty Start Date End Date Nicky Thibodeaux MD 230 [place] [address] PCP - General Family Medicine 04/20/18 Wu Manzo MD [address] [place] [address] Pain Medicine 03/29/24 Feroz Ascencio MD [address] [place] [phone] Orthopaedic Surgery 06/15/24 Rolanda Tirado Cessation Systems Outreach SpecialistParaffin Plant Operator 06/25/23 TREASURE [facility] 04/26/24 documented as of this encounter
--- OUTSIDE RECORDS SUMMARY | 2025-01-24 17:05 | XMS_ITS | Encounter Summary ---
Author Organization [employer] Address [address] [facility] 7t [place] [address] Care Team Providers Care Systems Architecture Analyst Name Role Phone [place], Nicky CASTAÑEDA Primary Care Provider +1- [phone] Wu Manzo MD Unavailable Feroz Ascencio MD Unavailable [phone] Reason for Visit * Reason Onset Date Comments Medication Question 12/11/2022 Encounter Details Date Type Department Care Team (Late st Contact Info) Description 12/11/2022 Telephone [facility] 230 [place] [address] Chelsi Canseco ANP 230 [place] [address] Medication Question Social History Tobacco Use Types [...] Description 03/29/2025 2:15 PM EST Office Visit [facility] 230 [place] [address] Nicky Thibodeaux MD 230 [place] [address] documented as of this encounter Visit Diagnoses Diagnosis Essential (primary) hypertension Unspecified essential hypertension documented in this encounter Additional Health Concerns Assessment Noted Time PHQ-9 Depression Total Score: 22 023 2:09 PM EDT documented as of this encounter Care Teams Systems Architecture Analyst Relationship Specialty Start Date End Date Nicky Thibodeaux MD 230 [place] [address] PCP - General Family Medicine 04/20/18 Wu Manzo MD [address] [place] [address] Drive [address] [place] [address] Pain Medicine 03/29/24 Feroz Ascencio MD [address] [place] [phone] Orthopaedic Surgery 06/15/24 Rolanda Tirado Adjustment ExaminerHand Alterations Seamstress 06/25/23 Latia Guardado PA-C [facility] 04/26/24 documented as of this encounter
--- OUTSIDE RECORDS SUMMARY | 2025-01-24 17:05 | XMS_ITS | Encounter Summary ---
Author Organization [employer] Address [address] [facility] 7t [place] [address] Care Team Providers Care Machine Set Up Name Role Phone Nicky Thibodeaux MD Primary Care Provider [phone]- [phone] Wu Manzo MD Unavailable Feroz Ascencio MD Unavailable [phone] Reason for Visit * Reason Onset Date Comments Nurse Triage 05/11/2024 Encounter Details Date Type Department Care Team (Late st Contact Info) Description 05/11/2024 Telephone [facility] 230 [place] [address] Nicky Thibodeaux MD 230 [place] [address] Nurse Triage Social History Tobacco Use Types [...] or Thursday.Pt wants appt on Thursday when LAW INSTRUCTOR is available to bring pt. Reviewed [facility] operating hours and that wait times vary. Unable to book sick on site > 48 hours. Pt advised can call back on Thursday for Thursday scheduled. Reviewed home care advise, ER precautions and reasons to call back. Protocol Used: Dizziness (Adult) Protocol-Based Disposition: Discuss with PCP and Callback by Nurse Today Sent to PCP and [place] team Primary care nurses for follow up [...] Description 03/29/2025 2:15 PM EST Office Visit [facility] [address] [place] [address] Nicky Thibodeaux MD 230 [place] [address] documented as of this encounter Visit Diagnoses Not on filedocumented in this encounter Additional Health Concerns Assessment Noted Time PHQ-9 Depression Total Score: 14 024 10:51 AM EST documented as of this encounter Care Teams Machine Set Up Relationship Specialty Start Date End Date Nicky Thibodeaux MD 230 [place] [address] PCP - General Family Medicine 04/20/18 Wu Manzo MD [address] [place] [address] Pain Medicine 03/29/24 Feroz Ascencio MD [address] [place] [phone] Orthopaedic Surgery 06/15/24 Rolanda Tirado Event AttendantWheel Shop Supervisor 06/25/23 Latia Guardado PA-C [facility] 04/26/24 documented as of this encounter
--- OUTSIDE RECORDS SUMMARY | 2025-01-24 17:05 | XMS_ITS | Encounter Summary ---
Author Organization [employer] Address [address] [facility] 7t [place] [address] Care Team Providers Care Site Monitor Name Role Phone Nicky Thibodeaux MD Primary Care Provider [phone]- [phone] Wu Manzo MD Unavailable Feroz Ascencio MD Unavailable [phone] Encounter Details Date Type Department Care Team (Late Contact Info) Description 08/12/2022 Orders Only [facility] MEDICINE [address] [place] [address] Nicky Thibodeaux MD [address] [place] [address] Social History Tobacco Use Types Packs/Day Years [...] 2:15 PM EST Office Visit [facility]INE 230 [place] [address] Nicky Thibodeaux MD 230 [place] [address] documented as of this encounter Visit Diagnoses Not on filedocumented in this encounter Additional Health Concerns Assessment Noted Time PHQ-9 Depression Total Score: 22 023 2:09 PM EDT documented as of this encounter Care Teams Site Monitor Relationship Specialty Start Date End Date Nicky Thibodeaux MD 230 [place] [address] PCP - General Family Medicine 04/20/18 Wu Manzo MD [address] [place] [address] Drive [address] [place] [address] Pain Medicine 03/29/24 Feroz Ascencio MD [address] [place] [phone] Orthopaedic Surgery 06/15/24 Rolanda Tirado In Flight Refueling ManagerField Checker 06/25/23 TREASURE [facility] 04/26/24 documented as of this encounter
--- OUTSIDE RECORDS SUMMARY | 2025-01-24 17:05 | XMS_ITS | Encounter Summary ---
Author Organization [employer] Address [address] [facility] 7t [place] [address] Care Team Providers Care Mining Professionals Name Role Phone Nicky Thibodeaux MD Primary Care Provider +1- [phone] Wu Manzo MD Unavailable Feroz Ascencio MD Unavailable [phone] Encounter Details Date Type Department Care [...] Office Visit [facility] 230 [place] [address] Nicky Thibodeaux MD [address] [place] [address] documented as of this encounter Visit Diagnoses Not on filedocumented in this encounter Additional Health Concerns Assessment Noted Time PHQ-9 Depression Total Score: 19 025 4:37 PM EDT documented as of this encounter Care Teams Mining Professionals Relationship Specialty Start Date End Date Nicky Thibodeaux MD 230 [place] [address] PCP - General Family Medicine 04/20/18 Wu Manzo MD [address] [place] [address] Pain Medicine 03/29/24 Feroz Ascencio MD [address] [place] [phone] Orthopaedic Surgery 06/15/24 Rolanda Tirado Dust PullerLpn Per Diem 06/25/23 TREASURE [facility] 04/26/24 documented as of this encounter
--- OUTSIDE RECORDS SUMMARY | 2025-01-24 17:05 | XMS_ITS | Encounter Summary ---
Author Organization [employer] Address [address] [place] [address] 7t [place] [address] Care Team Providers Care Digital Content Manager Name Role Phone Nicky Thibodeaux MD Primary Care Provider +1- [phone] Wu Manzo MD Unavailable Feroz Ascencio MD Unavailable [phone] Encounter Details Date Type Department Care Team (Late st Contact Info) Description 05/22/2022 Orders Only [facility] MEDICINE [address] [place] [address] Nereida Horner LPN Social History Tobacco Use [...] 03/29/2025 2:15 PM EST Office Visit [facility] MEDICINE [address] [place] [address] [phone] Nicky Thibodeaux MD [address] [place] [address] [phone] documented as of this encounter Visit Diagnoses Not on filedocumented in this encounter Care Teams Digital Content Manager Relationship Specialty Start Date End Date Nicky Thibodeaux MD [address] [place] [address] [phone] PCP - General Family Medicine 04/20/18 Wu Manzo MD [address] [facility] [address] [place] [address] Pain Medicine 03/29/24 Feroz Ascencio MD [address] [place] [phone] Orthopaedic Surgery 06/15/24 Rolanda Tirado Referral NurseClinical Massage Therapist 06/25/23 TREASURE [facility] 04/26/24 documented as of this encounter
--- OUTSIDE RECORDS SUMMARY | 2025-01-24 17:05 | XMS_ITS | Encounter Summary ---
Author Organization [employer] Address [address] [place] [address] 7t [place] [address] Care Team Providers Care Contract Programmer Name Role Phone [place], Nicky CASTAÑEDA Primary Care Provider [phone]- [phone] Wu Manzo MD Unavailable Feroz Ascencio MD Unavailable [phone] Reason for Visit * Reason Comments Med Refill Encounter Details Date Type Department Care Team (Late st Contact Info) Description 09/30/2022 Refill [facility]INE 230 [place] [address] Deborah [place] MD 230 [place] [address] Chronic migraine without aura without status migrainosus, [...] Description 03/29/2025 2:15 PM EST Office Visit [facility]INE 230 [place] [address] Nicky Thibodeaux MD 230 [place] [address] documented as of this encounter Visit Diagnoses Diagnosis Chronic migraine without aura without status migrainosus, not intractable documented in this encounter Additional Health Concerns Assessment Noted Time PHQ-9 Depression Total Score: 22 023 2:09 PM EDT documented as of this encounter Care Teams Contract Programmer Relationship Specialty Start Date End Date Nicky Thibodeaux MD 230 [place], [place] [phone] PCP - General Family Medicine 04/20/18 Wu Manzo MD [address] [place] [address] Drive [address] [place] [address] Pain Medicine 03/29/24 Feroz Ascencio MD [address] [place] [phone] Orthopaedic Surgery 06/15/24 Rolanda Tirado Blister Packaging Machine OperatorTractor Expert 06/25/23 Latia Guardado PA-C [facility] 04/26/24 documented as of this encounter
--- OUTSIDE RECORDS SUMMARY | 2025-01-24 17:05 | XMS_ITS | Encounter Summary ---
Author Organization [employer] Address [address] [place] [address] 7t [place] [address] Care Team Providers Care Financial Services Officer Name Role Phone Nicky Thibodeaux MD Primary Care Provider [phone]- [phone] Wu Manzo MD Unavailable Feroz Ascencio MD Unavailable [phone] Reason for Visit * Reason Comments Med Refill Encounter Details Date Type Department Care Team (Late st Contact Info) Description 12/11/2022 Refill [facility] MEDICINE [address] [place] [address] [phone] Nicky Thibodeaux MD [address] [place] [address] [phone] Social History Tobacco Use Types Packs/Day Years [...] Description 03/29/2025 2:15 PM EST Office Visit [facility] MEDICINE [address] [place] [address] [phone] Nicky Thibodeaux MD [address] [place] [address] [phone] documented as of this encounter Visit Diagnoses Not on filedocumented in this encounter Additional Health Concerns Assessment Noted Time PHQ-9 Depression Total Score: 22 023 2:09 PM EDT documented as of this encounter Care Teams Financial Services Officer Relationship Specialty Start Date End Date Nicky Thibodeaux MD [address] [place] [address] PCP - General Family Medicine 04/20/18 Wu Manzo MD [address] [place] [address] [place] [address] Pain Medicine 03/29/24 Feroz Ascencio MD [address] [place] [phone] Orthopaedic Surgery 06/15/24 Rolanda Tirado PrehemmerChrome Polisher 06/25/23 TREASURE [facility] 04/26/24 documented as of this encounter
--- OUTSIDE RECORDS SUMMARY | 2025-01-24 17:05 | XMS_ITS | Encounter Summary ---
Author Organization [employer] Address 75 [facility] 7t [place] [address] Care Team Providers Care Citizenship Teacher Name Role Phone Nicky Thibodeaux MD Primary Care Provider [phone]- [phone] Wu Manzo MD Unavailable Feroz Ascencio MD Unavailable [phone] Reason for Visit * Reason Comments Med Refill Encounter Details Date Type Department Care Team (Late st Contact Info) Description 05/26/2024 Refill [facility]INE 230 [place] [address] Nicky Thibodeaux MD 230 [place] [address] Pain Social History Tobacco Use Types Packs/Day [...] Description 03/29/2025 2:15 PM EST Office Visit [facility] MEDICINE [address] [place] [address] Nicky Thibodeaux MD [address] [place] [address] documented as of this encounter Visit Diagnoses Diagnosis Pain Generalized pain documented in this encounter Additional Health Concerns Assessment Noted Time PHQ-9 Depression Total Score: 14 024 10:51 AM EST documented as of this encounter Care Teams Citizenship Teacher Relationship Specialty Start Date End Date Nicky Thibodeaux MD 230 [place] [address] PCP - General Family Medicine 04/20/18 Wu Manzo MD [address] [place] [address] Pain Medicine 03/29/24 Feroz Ascencio MD [address] [place] [phone] Orthopaedic Surgery 06/15/24 Rolanda Tirado Printing Worker SupervisorStunt Person 06/25/23 TREASURE [facility] 04/26/24 documented as of this encounter
--- OUTSIDE RECORDS SUMMARY | 2025-01-24 17:05 | XMS_ITS | Clinical Summary ---
Author Organization [employer] Address [address] [place] [address] 7t [place] [address] Care Team Providers Care Floor Nurse Name Role Phone Nicky Thibodeaux MD Primary Care Provider [phone] Wu Manzo MD Unavailable Feroz Ascencio MD Unavailable [phone] Allergies Active Allergy Reactions Criticality Noted Date Comments Aspirin GI intolerance Low 01/03/2013 Ibuprofen GI intolerance Low 12/29/2014 Medications Spiriva HandiHaler 18 MCG inhalation capsuleIndication s:Chronic obstructive pulmonary disease, unspecified COPD type (CMS/HCC) ([facility]) INHALE 1 CAPSULE VIA HANDIHALER ONCE DAILY [...] with anxiety 50 mg. Active HYDROcodone-aceta minophen ([place]) 5-325 MG tabletIndications :Chronic low back pain, [...] due after 03/14/25 -eye care facilitated by [facility] -dental home is [facility] -swapna care proxy paperwork completed by to the patient 07/17/23 Assessment & Plan (03/14/2024 11:23 AM EST): -next physical exam due after 03/14/25 -eye care facilitated by [facility] -dental home is [facility] -swapna care proxy paperwork completed by to the patient 07/17/23 Assessment & Plan (11/19/2023 11:08 AM EDT): -next physical exam due after 12/11/23 -eye care facilitated by [facility] -dental home is [facility] -swapna care proxy paperwork completed by to the patient 07/17/23 Assessment & Plan (07/17/2023 10:10 AM EDT): -next physical exam due after 12/11/23 -eye care facilitated by [facility] -dental home is [facility] -swapna care proxy paperwork completed by [...] the MRI image on the disc from [facility] where she had MRI performed. I also requested her to read brochures about [facility] and [employer]. -note 12/30/24 at [facility] case reviewed with dr taveras, he would offer her ACDF C4-5, C5-6. i will call her and update her. Assessment & Plan (07/17/2023 10:03 AM EDT): Her pain is not controlled. Dillon asked her to reach out to her original prescriber for Vicodin at [facility]. She is 7 weeks post-op sugery and is weaning her percocet's. Dillon explained since she is on Ambien, gabapentin, and benzodiazapine I would not be able to safely prescribe the medications through our program. Assessment & Plan (12/15/2022 9:38 AM EDT): Her pain is not controlled. Dillon asked her to reach out to her original prescriber for Vicodin at [facility]. She is 7 weeks post-op sugery and is weaning her percocet's. Dillon explained since she is on Ambien, gabapentin, and benzodiazapine I would not be able to safely prescribe the medications through our program. Assessment & Plan (09/03/2022 12:12 PM EDT): Her pain is not controlled. Dillon asked her to reach out to her original prescriber for Vicodin at [facility]. She is 7 weeks post-op sugery and is weaning her percocet's. Dillon explained since she is on Ambien, gabapentin, and benzodiazapine I would not be able to safely prescribe the medications through our program. Arthritis 09/02/2022 Cerebrovascular accident (CVA) ([facility]) 023 Overview (11/18/2023): Pt had episode of [...] be 1.7 or 2.4 mg skilled nursing. -BUZZ resubmitted 11/19/23 Assessment & Plan (09/23/2023 [...] severe pain. She is getting Vicodin from [facility]. She requests opiate [...] therapy, multiple injections, and awaiting TENs unit. -[place] [employer] prescribing hydrocodone/APA 5/325 to support instrumented activities [...] the MRI image on the disc from [facility] where she had MRI performed. I also requested her to read brochures about [facility] and [employer]. Assessment & Plan (03/14/2024 11:31 AM EST): [...] severe pain. She is getting Vicodin from [facility]. She requests opiate medications from [...] pain. She sees a therapist and psychiatrist. -[facility] [place] prescribing hydrocodone/APA 5/325 to support instrumented activities [...] severe pain. She is getting Vicodin from [facility]. She requests opiate medications from [place]. We have reviewed her sedating medications together [...] -Referral placed to Gynecology, Dr. Aaron 07/17/23 -[facility] called 09/23/23 stating pt declined appt [...] -Referral placed to Gynecology, Dr. Aaron 07/17/23 -[facility] called 09/23/23 stating pt declined appt [...] -Referral placed to Gynecology, Dr. Aaron 07/17/23 -[facility] called 09/23/23 stating pt declined appt [...] left MARISELA 01/29/[address] Neal in [place] -s/p bilateral GT bursa injection under fluoroscopic guidance 06/13/24 with moderate reduction of pain in bilateral lateral hips -seen by ortho at [facility] 07/21/24 Hip pain [...] Type Department Care Team Description 01/23/2025 Telephone [facility] [place] [address] Nicky Thibodeaux MD March Recalls 01/23/2025 Travel 01/20/2025 Refill [facility] [place] [address] Nicky Thibodeaux MD Pain; Osteoarthritis of hip, unspecified laterality, unspecified osteoarthritis type 12/28/2024 4:00 PM EDT Office Visit [facility] [place] [address] Nicky Thibodeaux MD Class 2 severe obesity due to excess calories with serious comorbidity and body mass index (BMI) of 35.0 to 35.9 in adult ([facility]) (Primary Dx); Dietary counseling; Exercise counseling; Positive depression screening 12/28/2024 Travel 12/27/2024 Telephone [facility] [place] [address] Nicky Thibodeaux MD chart prep 12/26/2024 Orders Only GENERIC EXTERNAL DATA DEPARTMENT Provider, Generic External Data 12/25/2024 Refill [facility] [place] [address] Nicky Thibodeaux MD Vitamin D deficiency 12/23/2024 Refill [facility] [place] [address] Nicky Thibodeaux MD Chronic migraine without aura without status migrainosus, not intractable; Pain 12/20/2024 Telephone [facility] [place] [address] Nicky Thibodeaux MD Prior Authorization ( PA: Erin) 12/13/2024 Refill [facility] [place] [address] Nicky Thibodeaux MD Osteoarthritis of hip, unspecified laterality, unspecified osteoarthritis type; Pain 12/12/2024 Telephone [facility] [place] [address] Nicky Thibodeaux MD PT1 12/06/2024 Telephone [facility] [address] [facility] [place] [address] Nicky Thibodeaux MD 11/24/2024 Refill [facility] [address] [place] [address] Nicky Thibodeaux MD Pain 11/16/2024 Refill [facility] [address] [place] [address] Nicky Thibodeaux MD Pain 11/16/2024 Refill [facility] [address] [facility] [place] [address] Chelsi Canseco ANP Pain 11/14/2024 Refill [facility] [address] [place] [address] Angie Eli MD Osteoarthritis of hip, unspecified laterality, unspecified osteoarthritis type; Pain 10/26/2024 Refill [facility] [address] [place] [address] Nicky Thibodeaux MD Pain from Last 3 [...] Description 03/29/2025 2:15 PM EST Office Visit [facility] [address] [place] [address] Nicky Thibodeaux MD [address] [place], [place] [phone] Health Maintenance Due Date Last Done Comments [...] EDT) Sodium 144 135 - 145 mmol/L [facility] Potassium 4.6 3.3 - 5.1 mmol/L [facility] Chloride 111(H) 96 - 108 mmol/L [facility] Carbon Dioxide 23 22 - 29 mmol/L [facility] Anion Gap 15 12 - 20 [facility] Urea Nitrogen (BUN) 15 9 - 16 mg/dL [facility] Creatinine, Serum 0.98 0.5 - 1.4 mg/dL [facility] Estimated Glomerular Filt Rate 58 [facility] Comment:Chronic Kidney Disea se: Estimated GFR < 60 mL/min/1.14h9Ggughv Kidney Disease: Estimated GFR < 15 mL/min/1.73m2 Glucose Fasting 97 60 - 99 mg/dL [facility] Calcium 9.1 8.4 - 10.2 mg/dL [facility] Bilirubin, Total 0.1 0.0 - 1.0 mg/dL [facility] Aspartate Amino Transferase 19 5 - 31 U/L [facility] Alanine Aminotransferase 22 0 - 31 U/L [facility] Total Protein 7.2 6.5 - 8.0 g/dL [facility] Albumin Level 4.2 3.5 - 5.0 g/dL [facility] Alkaline Phosphatase 90 39 - 117 U/L [facility] 12/26/2024 10:0 8 AM EDT 12/26/2024 11:21 AM EDT us Generic External Data Provider LAB BLOOD ORDERAB LES Final Result [facility] [address] [place] [phone] * (ABNORMAL) CBC auto differential (12/26/2024 10:08 AM EDT) White Blood Count 8.3 4.8 - 10.8 X10*3/uL [facility] Red Blood Count 4.05(L) 4.20 - 5.50 X10*6/uL [facility] Hemoglobin 11.4(L) 12.0 - 16.0 g/dl [facility] Hematocrit 35.8(L) 37.0 - 47.0 % [facility] Mean Corpuscular Volume 88.4 80.0 - 98.0 fL [facility] Mean Corpuscular Hemoglobin 28.1 27.0 - 33.0 pg [facility] Mean Corpuscular HGB Conc 31.8 31.0 - 35.0 g/dl [facility] Red Cell Distribution Width 14.3 11.0 - 16.0 % [facility] Platelet Count 281 160 - 400 X10*3/uL [facility] Mean Platelet Volume 10.8 9.4 - 12.3 fL [facility] Neutrophils Percent Auto 67.5 45 - 73 % [facility] Imm Gran Pct Auto 0.2 0.0 - 0.4 % [facility] Lymphocytes Percent Auto 23.6 20 - 40 % [facility] Monocytes Percent Auto 6.9 2 - 11 % [facility] Eosinophils Percent Auto 1.2 0 - 4 % [facility] Basophils Percent Auto 0.6 0 - 2 % [facility] NRBC Pct Auto 0.0 0.0 - 0.2 /100WBC [facility] Neutrophils Absolute Auto 5.6 2.0 - 8.3 x10*3/uL [facility] Imm Gran Abs Auto 0.02 0.00 - 0.03 X10*3/uL [facility] Lymphocytes Absolute Auto 2.0 1.2 - 4.9 X10*3/uL [facility] Monocytes Absolute Auto 0.6 0.1 - 1.2 X10*3/uL [facility] Eosinophils Absolute Auto 0.1 0.0 - 0.4 X10*3/uL [facility] Basophils Absolute Auto 0.1 0.0 - 0.2 X10*3/uL [facility] NRBC Abs Auto 0.000 0.0 - 0.012 X10*3/uL [facility] 12/26/2024 10:0 8 AM EDT 12/26/2024 11:16 AM EDT us Generic External Data Provider LAB BLOOD ORDERAB LES Final Result Performing Organization Address City/[facility] Co de Phone Number [facility] [address] [place] [phone] * (ABNORMAL) Lipid Panel, Standard (12/26/2024 10:08 AM EDT) Triglycerides 198(H) <150 mg/dL [facility] Comment:Desirable Triglyceri de: less than 150 mg/dLBorderline High Triglyceride 150-199 mg/dLHigh Triglyceride: 200-499 mg/dLVery High Triglyceride: greater than or equal to 5OO mg/dL Cholesterol 186 <200 mg/dL [facility] Comment:Desirable Cholestero l: less than 200 mg/dLBorderline High Cholesterol: 200-239 mg/dLHigh Cholesterol: greater than 239 mg/dL LDL Cholesterol Calculated 97 <100 mg/dL [facility] Comment:Desirable LDL: less than 100 mg/dLNear Optimal/Above Optimal LDL: 110- 129 mg/dLBorderline High LDL: 130-159 mg/dLHigh LDL: 160-189 mg/dLVery High LDL: greater than or equal to 190 mg/dL HDL Cholesterol 50 >40 mg/dL [facility] Comment:Desirable HDL: great er than 40 mg/dL Note: This HDL assay may give artificially low results in patients with liver disease. 12/26/2024 10:0 8 AM EDT 12/26/2024 11:21 AM EDT us Generic External Data Provider LAB BLOOD ORDERAB LES Final Result [facility] [address] [place] [address] [phone] * BI Mammogram Screening Tomosynthesis Bilateral (09/30/2024 2:45 PM EDT) Anatomical Region Laterality Modality Breast Bilateral Mammography 09/30/2024 2:45 PM EDT Narrative 10/08/2024 8:50 PM EDT [facility] [address] [place] [address] Mammography Report Signed Patient: Darcy Medina MR#: [id number] : 1965 Acct:[id number] Age/Sex: 59 / F ADM Date: 09/30/24 Loc: HO.MAMMO Attending Dr: Nicky Thibodeaux MD Ordering Physician: Nicky Thibodeaux MD Results: 2B enign Findings Date of Service: 09/30/24 Follow Up: 1 Year From [facility] Mammogram Procedure(s): MM tomosynthesis screening BI Accession Number(s): [id number] cc: Nicky Thibodeaux MD EXAMINATION: MM SCREENING [...] OV> 10/08/242046 DD/ 1445 TD/TT: 09/30/24 1500 Classics Teacher: Procedure Note Donotuseinterpreter, Image - 10/08/2024 [facility] [address] [place], [place] [address] Mammography Report Signed Patient: Darcy Medina FMR#: [id number] : 1965Acct:[id number] Age/Sex: 59 / FADM Date: 09/30/24 Loc: HO.MAMMO Attending Dr: Nicky Thibodeaux MD Ordering Physician: Nicky Thibodeaux MDResults: 2B enign Findings Date of Service: 09/30/24Follow Up: 1 Year From Orig inal Mammogram Procedure(s): MM tomosynthesis screening BI Accession Number(s): [id number] cc: Nicky Thibodeaux MD EXAMINATION: MM SCREENING [...] OV> 10/08/242046 DD/ 1445 TD/TT: 09/30/24 1500 Classics Teacher: Nicky Thibodeaux MD IMG BI PROCEDURES Edited R esult - Final * Hepatitis C Antibody with Reflex to HCV, RNA, Quantitative, Real-Time PCR (09/03/2022 11:58 AM EDT) Hepatitis C Antibody NON-REACT DILLON NON-REACT DILLON [facility] [place] [facility] Index 0.02 <1.00 [facility] Comment: HCV antibody was non-reactive. There is no laboratory evidence of HCV infection. In most cases, no further action is required. However, if recent HCV exposure is suspected, a test for HCV RNA (test code 06796) is suggested. For additional information please refer to http://education.Umthunzi/faq/YHK00d7 (This link is being provided for informational/ educational purposes only.) Blood Venous blood specimen / Unknown 09/03/2022 11:58 AM EDT 09/03/2022 11:58 AM EDT Narrative [facility] - 09/07/2022 11:33 PM EDT FASTING:YES FASTING: YES Nicky Thibodeaux MD LAB BLOOD ORDERABLES Final Result [facility] [address], [place] [address] [facility] [address] [place] [address] * HIV-1/2 Antigen and Antibodies, Fourth Generation, with Reflexes (09/03/2022 11:58 AM EDT) HIV Antigen/Antibody, 4th Generation NON-REAC TIVE NON-REAC TIVE [facility] [place] [facility] Comment: HIV-1 antigen and HIV-1/HIV-2 antibodies were [...] purpose. For additional information please refer to http://VUELOGIC.Umthunzi/faq/SMY491 (This link is being provided for informational/ educational purposes only.) The performance of this assay has not been clinically validated in patients less than 2 years old. Blood Venous blood specimen / Unknown 09/03/2022 11:58 AM EDT 09/03/2022 11:58 AM EDT Narrative [facility] - 09/07/2022 11:33 PM EDT FASTING:YES FASTING: YES Nicky Thibodeaux MD LAB BLOOD ORDERABLES Final Result [facility] [address] [place] [address], [place] [address] [facility] [address] [place] [address] * (ABNORMAL) THINPREP TIS PAP AND HPV mRNA E6/E7, CT/NG, TRICH (08/02/2021 11:49 AM EDT) Chlamydia trachomatis RNA, TMA, Urogenital NOT DETECTED NOT DETECTED [facility] Clinical Information: None given [facility] COMMENT SEE COMMENT [facility] Comment: The analytical performance characteristics of this assay, when used to test SurePath(TM) specimens have been determined by [facility]. The modifications have not been cleared or approved by the FDA. This assay has been validated pursuant to the CLIA regulations and is used for clinical purposes. For additional information, please refer to https://VUELOGIC.Umthunzi/faq/OFP607 (This link is being provided for information/ [...] has been evaluated with computer assisted technology. [facility] Dispatch Clerk: SEE COMMENT [facility] Comment: DCR, CT(ASCP) CT screening location: [place] [address] HPV nRNA E6/E7 Detected(A) Not Detected [facility] Comment: Methodology: Data Management Consultant-Mediated Amplification This assay detects E6/E7 viral messenger RNA (mRNA) from 14 high-risk HPV types (16,18,31,33,35,39,45,51,52,56,58,59,66,68). The analytical performance characteristics of this assay have been determined by [facility]. The modifications have not been cleared or approved by the FDA. This assay has been validated pursuant to the CLIA regulations and is used for clinical purposes. For additional information, please refer to http://VUELOGIC.Umthunzi/faq/QHS516o9 (This link if provided for information/ educational purposes only.) Interpretation/Res ult: SEE COMMENT [facility] Comment: Negative for intraepithelial lesion or malignancy. Atrophic pattern; predominantly parabasal cells LMP: NONE [facility]IVEN [facility] Neisseria gonorrhoeae RNA, TMA, Urogenital NOT DETECTED NOT DETECTED [facility] Prev. BX: NONE [facility]IVEN [facility] Prev. PAP: NONE [facility]IV[facility] Review Dispatch Clerk: SEE COMMENT [facility] Comment: JXM, CT(ASCP) CT screening location: [place] [address] SOURCE: None given [facility] Statement Of Adequacy: SATISFACTORY FOR EVALUATION [facility] Trichomonas vaginalis, QL, TMA, PAP Vial NOT DETECTED NOT DETECTED [facility] Comment: The analytical performance characteristics of this assay have been determined by [facility]. The modifications have not been cleared or approved by the FDA. This assay has been validated pursuant to the CLIA regulations and is used for clinical purposes. For additional information, please refer to http://education.Umthunzi/ faq/Trichomonastma (This link is being provided for information/ educational purposes only.) 08/02/2021 11:4 9 AM EDT us Nicky Thibodeaux MD LAB PATHOLOGY ORDERABLES F inal Result [facility] [address] [place] [address], * Pap Smear (08/02/2021 12:00 AM EDT) Swab Nicky Thibodeaux MD LAB CYTOLOGY ORDERABLES Fi nal Result Performing Organization Address City/[facility]/ZIP Co de Phone Number [facility] [address] [place] [address] [phone] * Colonoscopy (12/11/2015) Colonoscopy normal with Dr. Delgado Historical Provider HEALTH MAINTENANCE Final Result from Last 3 Months or Most Recently Relevant to Health Maintenance Insurance [facility] STANDARD DENTAL-[facility] MEDICAID STAND ADULT Advance Directives Documents on File Type Date Recorded Patient Supervisor [employer] Expl anation Advance Directives and Living Will 07/17/2023 Health Care Proxy 07/17/23 Care Teams Floor Nurse Relationship Specialty Start Date End Date Morelia, MD Nicky [address] [place] [address] PCP - General Family Medicine 04/20/18 Wu Manzo MD [address] [place] [address] Pain Medicine 03/29/24 Feroz Ascencio MD [address] [place] [phone] Orthopaedic Surgery 06/15/24 Rolanda Tirado Bulldozer OperatorGuard Lieutenant 06/25/23 Latia Guardado PA-C [facility] 04/26/24
--- OUTSIDE RECORDS SUMMARY | 2025-01-24 17:05 | XMS_ITS | Encounter Summary ---
Author Organization [employer] Address [address] [facility] 7t [place] [address] Care Team Providers Care Sheet Pile Driver Operator Name Role Phone Nicky Thibodeaux MD Primary Care Provider [phone] Wu Manzo MD Unavailable Feroz Ascencio MD Unavailable [phone] Reason for Visit * Reason Comments Med Refill Encounter Details Date Type Department Care Team ([facility] Contact Info) Description 08/26/2022 Refill [facility] [address] [place] [address] Nicky Thibodeaux MD [address] [place] [address] Pain Social History Tobacco Use Types Packs/Day [...] Upcoming Encounters Date Type Department Care Team ([facility] Contact Info) Description 03/29/2025 2:15 PM EST Office Visit [facility] [address] [place] [address] Nicky Thibodeaux MD [address] [place] [address] documented as of this encounter Visit Diagnoses Diagnosis Pain Generalized pain documented in this encounter Additional Health Concerns Assessment Noted Time PHQ-9 Depression Total Score: 22 023 2:09 PM EDT documented as of this encounter Care Teams Sheet Pile Driver Operator Relationship Specialty Start Date End Date Nicky Thibodeaux MD [address] [place] [address] PCP - General Family Medicine 04/20/18 Wu Manzo MD [address] [place] [address] [place] [address] Pain Medicine 03/29/24 Feroz Ascencio MD [address] [place] [phone] Orthopaedic Surgery 06/15/24 Rolanda Tirado Hotel Security OfficerMask Designer 06/25/23 Latia Guardado PA-C [facility] 04/26/24 documented as of this encounter
--- OUTSIDE RECORDS SUMMARY | 2025-01-24 17:05 | XMS_ITS | Encounter Summary ---
Author Organization [employer] Address [address] [facility] 7t [place] [address] Care Team Providers Care Emergency Room Physician Assistant Name Role Phone Nicky Thibodeaux MD Primary Care Provider [phone] Wu Manzo MD Unavailable Feroz Ascencio MD Unavailable [phone] Reason for Visit * Reason Onset Date Comments pt1 10/12/2024 Encounter Details Date Type Department Care Team (Late st Contact Info) Description 10/12/[address] [facility] [address] [place] [address] Nicky Thibodeaux MD [address] [place] [address] pt1 Social History Tobacco Use Types Packs/Day [...] EDT CHW Cheyenne Carpio submitted pt1 to [facility] for location below and will take up to 7 days to getapproved. CHW placed call to patient to let her know, patient understood and will call if she has any concerns. documented in this encounter Plan of Treatment Upcoming Encounters Date Type Department Care Team (Late st Contact Info) Description 03/29/2025 2:15 PM EST Office Visit [facility] [address] [place] [address] Nicky Thibodeaux MD [address] [place] [address] documented as of this encounter Visit Diagnoses Not on filedocumented in this encounter Additional Health Concerns Assessment Noted Time PHQ-9 Depression Total Score: 14 024 10:51 AM EST documented as of this encounter Care Teams Emergency Room Physician Assistant Relationship Specialty Start Date End Date Nicky Thibodeaux MD [address] [place] [address] PCP - General Family Medicine 04/20/18 Wu Manzo MD [address] [place] [address] Pain Medicine 03/29/24 Feroz Ascencio MD [address] [place] [phone] Orthopaedic Surgery 06/15/24 Rolanda Tirado Conveyor MonitorAutomotive General Sales Manager 06/25/23 TRE[facility]URE [facility] 04/26/24 documented as of this encounter
--- OUTSIDE RECORDS SUMMARY | 2025-01-24 17:05 | XMS_ITS | Encounter Summary ---
Author Organization [employer] Address [address] 7t [place] [address] Care Team Providers Care Band Scroll Saw Operator Name Role Phone Nicky Thibodeaux MD Primary Care Provider [phone]- [phone] Wu Manzo MD Unavailable Feroz Ascencio MD Unavailable [phone] Reason for Visit * Reason Onset Date Comments PT-1 12/08/2023 Encounter Details Date Type Department Care Team (Late st Contact Info) Description 12/08/2023 Telephone [facility] [address] [place] [address] Nicky Thibodeaux MD 230 [place] [address] PT-1 Social History Tobacco Use Types Packs/Day [...] Y/N: Yes Provider name or facility name: [facility] pain management Facility Address: [address] [place] [address] Escort needed: Y/N: No Do you have a wheelchair: Y/N: No If yes- Manual or electric: N/A (uses walker) Visits: twice a month documented in this encounter Plan of Treatment Upcoming Encounters Date Type Department Care Team (Late st Contact Info) Description 03/29/2025 2:15 PM EST Office Visit [facility] [address] [place] [address] Nicky Thibodeaux MD [address] [place] [address] documented as of this encounter Visit Diagnoses Not on filedocumented in this encounter Additional Health Concerns Assessment Noted Time PHQ-9 Depression Total Score: 22 023 2:09 PM EDT documented as of this encounter Care Teams Band Scroll Saw Operator Relationship Specialty Start Date End Date Nicky Thibodeaux MD [address] [place] [address] PCP - General Family Medicine 04/20/18 Wu Manzo MD [address] [place] [address] [address] [place] [address] Pain Medicine 03/29/24 Feroz Ascencio MD [address] [place] [phone] Orthopaedic Surgery 06/15/24 Rolanda Tirado Anodize Machine OperatorAssistant Oceanographer 06/25/23 Latia Guardado PA-C [facility] 04/26/24 documented as of this encounter
--- OUTSIDE RECORDS SUMMARY | 2025-01-24 17:05 | XMS_ITS | Encounter Summary ---
Author Organization [employer] Address [address] [place] [address] 7t [place] [address] Care Team Providers Care Image Processing Engineer Name Role Phone Nicky Thibodeaux MD Primary Care Provider [phone]- [phone] Wu Manzo MD Unavailable Feroz Ascencio MD Unavailable [phone] Encounter Details Date Type Department Care Team (Late st Contact Info) Description 05/05/2022 Abstract [facility] [address] [place] [address] [phone] Nicky Thibodeaux MD [address] [place] [address] [phone] Social History Tobacco Use Types Packs/Day Years [...] Description 03/29/2025 2:15 PM EST Office Visit [facility] [address] [place] [address] [phone] Nicky Thibodeaux MD [address] [place] [address] [phone] documented as of this encounter Procedures Procedure Name Priority Date/Time Associated Diagnosis Comments COLPOSCOPY Routine 09/11/2021 12:00 AM EDT PAP SMEAR Routine 08/02/2021 12:00 AM EDT MAMMOGRAPHY Routine 10/29/2020 COLONOSCOPY Routine 12/11/2015 documented in this encounter Results * Colposcopy (09/11/2021 12:00 AM EDT) Historical Provider IN CLINIC/BEDSIDE ORDERAB LES Final Result Performing Organization Address City/[facility]/ZIP Co de Phone Number [facility] [address] [place] [address] [phone] * Pap Smear (08/02/2021 12:00 AM EDT) Swab Nicky Thibodeaux MD LAB CYTOLOGY ORDERABLES Fi nal Result Performing Organization Address [facility]/ZIP Co de Phone Number [facility] [address] [place] [address] [phone] * Mammography (10/29/2020) Mammogram BIRADS 2 Anatomical Region Laterality Modality Other Historical Provider HEALTH MAINTENANCE Final Result * Colonoscopy (12/11/2015) Colonoscopy normal with Dr. Delgado Historical Provider HEALTH MAINTENANCE Final Result documented in this encounter Visit Diagnoses Not on filedocumented in this encounter Care Teams Image Processing Engineer Relationship Specialty Start Date End Date Nicky Thibodeaux MD [address] [place] [address] PCP - General Family Medicine 04/20/18 Wu Manzo MD [address] [place] [address] Pain Medicine 03/29/24 Feroz Ascencio MD [address] [place] [phone] Orthopaedic Surgery 06/15/24 Rolanda Tirado HistotechnologistDynamo Tender 06/25/23 TREASURE [facility] 04/26/24 documented as of this encounter
--- OUTSIDE RECORDS SUMMARY | 2025-01-24 17:05 | XMS_ITS | Encounter Summary ---
Author Organization [employer] Address [address] [facility] 7t [place] [address] Care Team Providers Care Channel Sales Manager Name Role Phone Nicky Thibodeaux MD Primary Care Provider [phone]- [phone] Wu Manzo MD Unavailable Feroz Ascencio MD Unavailable [phone] Encounter Details Date Type Department Care Team (Latest Contact Info) Description 04/05/2021 Abstract [facility] CONVERSIONS Dental, Provider, DDS Social History Tobacco [...] 03/29/2025 2:15 PM EST Office Visit [facility] MEDICINE 230 [place] [address] Nicky Thibodeaux MD 230 [place] [address] documented as of this encounter Visit Diagnoses Not on filedocumented in this encounter Care Teams Channel Sales Manager Relationship Specialty Start Date End Date Nicky Thibodeaux MD [address] [place] [address] [phone] PCP - General Family Medicine 04/20/18 Wu Manzo MD [address] [place] [address] Drive [address] [place] [address] Pain Medicine 03/29/24 Feroz Ascencio MD [address] [place] [phone] Orthopaedic Surgery 06/15/24 Rolanda Tirado Crew TrainerSupervisor Paper Testing 06/25/23 TREASURE [facility] 04/26/24 documented as of this encounter
== END 2025-01-24 14:44 | disposition home or self-care (01) ==
LOC: HO.PMCPRC 13:50
PROVIDERS: PCP Family Medicine; Visit Provider Anesthesiology
DX: M53.3 Sacrococcygeal disorders, not elsewhere classified (principal); M46.1 Sacroiliitis, not elsewhere classified
CPT/HCPCS: 27096

== ENCOUNTER 2025-01-24 14:44 | Outpatient (REF) | payer MEDICAID, SELFPAY ==
--- NOTE | ~2025-01-24 | XR_ITS ---
EXAMINATION: XR CERVICAL SPINE CLINICAL INFORMATION: M54.12 - Radiculopathy, cervical region COMPARISON: None available. TECHNIQUE: Cervical spine 6 views FINDINGS: Cervical spine is visualized from C1-C7 level. Minimal anterolisthesis C3 on C4. Vertebral body heights are maintained. No evidence of acute fracture. Predens space is maintained. No prevertebral soft tissue swelling. Moderate C4-5, C5-6 disc degeneration. Multilevel facet degeneration. On the flexion view, no dynamic instability is identified. There is an area of calcification/ossification projected anterior to the cervical spine, seen on the lateral view. This measures up to proximately 2.5 x 2.5 cm. This is not well-seen on the AP view. This of indeterminate etiology. XR/XR cervical spine 4V IMPRESSION: * No radiographic evidence of acute osseous process. * Minimal anterolisthesis C3 on C4. *Cervical spondylosis. * Area of calcification/ossification projected anterior to the cervical spine, seen on the lateral view, measuring up to 2.5 x 2.5 cm. This of indeterminate etiology. CT neck for further evaluation as clinically indicated. Electronically signed by: Chente Walls MD 01/24/2025 03:46 PM EDT
== END 2025-01-24 14:45 | disposition home or self-care (01) ==
LOC: HO.XRAY 14:44
PROVIDERS: Visit Provider Physician Assistant
DX: M54.12 Radiculopathy, cervical region (principal)
CPT/HCPCS: 72050

== ENCOUNTER → 2025-01-24 14:47 | Outpatient (BNV) | payer MEDICAID, SELFPAY | PROVIDERS: Visit Provider Radiology Diagnostic Ultrasound | DX: M43.12 Spondylolisthesis, cervical region (principal) | CPT/HCPCS: 72050 ==

== ENCOUNTER 2025-01-31 13:11 | Outpatient (AMB) | payer MEDICAID, SELFPAY ==
--- NOTE | 2025-01-31 13:20 | A.SPINEOV_ITS ---
Intake Visit Reasons: Discuss sx Intake Note: Ms. Medina is here today to Discuss Surgery. Pig Machine Supervisor Required: No Allergies aspirin (ASPIRIN) Allergy (Mild, Verified 12/29/24 15:26) GI UPSET ibuprofen (IBUPROFEN) Allergy (Mild, Verified 12/29/24 15:26) GI UPSET Assessment & Plan Assessment & Plan (1) Left shoulder pain: Code(s): M25.512 - Pain in left shoulder Category: Medical Plan Mrs Medina came in today for follow-up to review her x-rays and her MRI results again. She had MRI done at [facility] , and cervical spine x-rays done here at [facility]. She has a significant amount of left arm pain going down into her elbow and forearm starting up near her neck. There is a component of shoulder pain as well which does get worse with manipulation of her arm and internal external rotation. Dr. Myrick reviewed her films and believe we could offer her C4-5, C5-6 ACDF in order to treat what we suspect this is a cervical radiculopathy. We discussed that procedure at length today. I will get a set of left shoulder x-rays just to be sure that there was not some overlap with a rotator cuff issue or degenerative arthritis in her shoulder which I also suspect she has. Just so we can set expectations after surgery, with the understanding that the surgery is quite successful with radicular pain, but if there is a component of arthritis in her shoulder, she may need to follow up with Dr. Neal about that. I have tentatively given her a date for surgery for March 22. The patient was given risk and benefits of surgery including but not limited to infection, hematoma, nerve injury, durotomy, weakness, persistent pain. We discussed that if undergoing anterior cervical fusion there may be trachea or esophageal injury, hoarseness, or difficulty swallowing. There is a risk of pseudoarthrosis or instrumentation failure if undergoing cervical fusion. We a lso reviewed the option to continue with conservative treatment and patient wishes to proceed with surgery. They are aware they should stop Zepbound and NSAIDs 7 days prior to surgery. All questions were answered to the best of our ability. If there is anything about this patient's medical history that we have overlooked or concerns you have about us proceeding with surgery we would appreciate any input you can offer Total amount of time spent in this visit was 20 minutes in discussion of symptoms, cervical MRI and x-rays imaging results and subsequent plan of care Yogi Myrick MD,PhD [facility] Orders: Orders XR shoulder LT min 2V Today M25.512 - Pain in left shoulder Coding Level of Care Code Est Pt Level 3 (28769) Diagnoses Left shoulder pain M25.512
--- OUTSIDE RECORDS SUMMARY | 2025-01-31 16:00 | XMS_ITS | Encounter Summary ---
Author Organization [employer] Address [address] [facility] 7t [place] [address] Care Team Providers Care Ice Skating Teacher Name Role Phone Nicky Thibodeaux MD Primary Care Provider [phone]- [phone] Wu Manzo MD Unavailable Feroz Ascencio MD Unavailable [phone] Reason for Visit * Reason Comments Med Refill Encounter Details Date Type Department Care Team (Late st Contact Info) Description 04/09/2023 Refill [facility] 230 [place] [address] Nicky Thibodeaux MD 230 [place] [address] Pain Social History Tobacco Use Types Packs/Day [...] Description 03/29/2025 2:15 PM EST Office Visit [facility] 230 [place] [address] Nicky Thibodeaux MD 230 [place] [address] 05/15/2025 2:00 PM EST Office Visit [facility] OPT[facility] [address] [place] [address] Rafita, Shannan, OD 230 [place] [address] documented as of this encounter Visit Diagnoses Diagnosis Pain Generalized pain documented in this encounter Additional Health Concerns Assessment Noted Time PHQ-9 Depression Total Score: 22 023 2:09 PM EDT documented as of this encounter Care Teams Ice Skating Teacher Relationship Specialty Start Date End Date Nicky Thibodeaux MD 230 [place] [address] PCP - General Family Medicine 04/20/18 Wu Manzo MD [address] [place] [address] Pain Medicine 03/29/24 Feroz Ascencio MD [address] [place] [phone] Orthopaedic Surgery 06/15/24 Rolanda Tirado Medical Insurance Claims SpecialistTube Rebuilder 06/25/23 TREASURE [facility] 04/26/24 documented as of this encounter
--- OUTSIDE RECORDS SUMMARY | 2025-01-31 16:00 | XMS_ITS | Encounter Summary ---
Author Organization [employer] Address [address] 7t [place] [address] Care Team Providers Care Field Training Agent Name Role Phone Nicky Thibodeaux MD Primary Care Provider [phone]- [phone] Wu Manzo MD Unavailable Feroz Ascencio MD Unavailable [phone] Reason for Visit * Reason Onset Date Comments Med Refill 04/29/2023 Encounter Details Date Type Department Care Team (Late st Contact Info) Description 04/29/[address] [facility] [address] [place] [address] Nicky Thibodeaux MD [address] [place] [address] Med Refill Social History Tobacco Use Types [...] 500 MG tablet To be sent to: [facility]/pharmacy [address] [place] [address] documented in this encounter Plan of Treatment Upcoming Encounters Date Type Department Care Team (Late st Contact Info) Description 03/29/2025 2:15 PM EST Office Visit [facility] [address] [place] [address] Nicky Thibodeaux MD 230 [place] [address] 05/15/2025 2:00 PM EST Office Visit [facility] OPTOMETRY [address] [place] [address] Shannan Eller, OD 230 [place] [address] documented as of this encounter Visit Diagnoses Not on filedocumented in this encounter Additional Health Concerns Assessment Noted Time PHQ-9 Depression Total Score: 22 023 2:09 PM EDT documented as of this encounter Care Teams Field Training Agent Relationship Specialty Start Date End Date Nicky Thibodeaux MD [address] [place] [address] PCP - General Family Medicine 04/20/18 Wu Manzo MD [address] [place] [address] [address] [place] [address] Pain Medicine 03/29/24 Feroz Ascencio MD [address] [place] [phone] Orthopaedic Surgery 06/15/24 Rolanda Tirado Patient Resource SpecialistHereditary Cancer Program Coordinator 06/25/23 Latia Guardado PA-C [facility] 04/26/24 documented as of this encounter
--- OUTSIDE RECORDS SUMMARY | 2025-01-31 16:00 | XMS_ITS | Encounter Summary ---
Author Organization [employer] Address [address] [facility] 7t [place] [address] Care Team Providers Care Mobile Application Development Lead Name Role Phone Nicky Thibodeaux MD Primary Care Provider [phone]- [phone] Wu Manzo MD Unavailable Feroz Ascencio MD Unavailable [phone] Reason for Visit * Reason Comments Med Refill Encounter Details Date Type Department Care Team (Late st Contact Info) Description 05/19/2023 Refill [facility] [address] [place] [address] Nicky Thibodeaux MD 230 [place], [place] [phone] Asthma, unspecified asthma severity, unspecified whether complicated, [...] 2:15 PM EST Office Visit [facility]INE [address] [place] [address] Nicky Thibodeaux MD 230 [place] [address] 05/15/2025 2:00 PM EST Office Visit [facility] OPTOMETRY [address] [place] [address] Rafita, Shannan, OD 230 [place] [address] documented as of this encounter Visit Diagnoses Diagnosis Asthma, unspecified asthma severity, unspecified whether complicated, unspecified whether persistent documented in this encounter Additional Health Concerns Assessment Noted Time PHQ-9 Depression Total Score: 22 023 2:09 PM EDT documented as of this encounter Care Teams Mobile Application Development Lead Relationship Specialty Start Date End Date Nicky Thibodeaux MD [address] [place] [address] PCP - General Family Medicine 04/20/18 Wu Manzo MD [address] [place] [address] Pain Medicine 03/29/24 Feroz Ascencio MD [address] [place] [phone] Orthopaedic Surgery 06/15/24 Rolanda Tirado Batterboard SetterLlama Farmer 06/25/23 TREASURE [facility] 04/26/24 documented as of this encounter
--- OUTSIDE RECORDS SUMMARY | 2025-01-31 16:00 | XMS_ITS | Encounter Summary ---
Author Organization [employer] Address [address] 7t [place] [address] Care Team Providers Care Worldwide Chief Creative Officer Name Role Phone Nicky Thibodeaux MD Primary Care Provider [phone]- [phone] Wu Manzo MD Unavailable Feroz Ascencio MD Unavailable [phone] Encounter Details Date Type Department Care Team (Late st Contact Info) Description 03/11/2023 Abstract [facility] 230 [place], [place] [phone] Thuy Valenzuela Social History Tobacco Use Types [...] 2:15 PM EST Office Visit [facility] 230 [place] [address] Nicky Thibodeaux MD 230 [place] [address] 05/15/2025 2:00 PM EST Office Visit [facility] OPTOMETRY [address] [place] [address] Rafita, Shannan, OD 230 [place] [address] documented as of this encounter Visit Diagnoses Not on filedocumented in this encounter Additional Health Concerns Assessment Noted Time PHQ-9 Depression Total Score: 22 023 2:09 PM EDT documented as of this encounter Care Teams Worldwide Chief Creative Officer Relationship Specialty Start Date End Date Nicky Thibodeaux MD 230 [place] [address] PCP - General Family Medicine 04/20/18 Wu Manzo MD [address] [place] [address] Pain Medicine 03/29/24 Feroz Ascencio MD [address] [place] [phone] Orthopaedic Surgery 06/15/24 Rolanda Tirado Social Work CoordinatorNightman 06/25/23 Latia Guardado PA-C [facility] 04/26/24 documented as of this encounter
--- OUTSIDE RECORDS SUMMARY | 2025-01-31 16:00 | XMS_ITS | Encounter Summary ---
Author Organization [employer] Address [address] [place] [address] 7t [place] [address] Care Team Providers Care Laundry Route Driver Name Role Phone Nicky Thibodeaux MD Primary Care Provider [phone]- [phone] Wu Manzo MD Unavailable Feroz Ascencio MD Unavailable Reason for Visit * Reason Comments Med Refill Encounter Details Date Type Department Care Team (Late Contact Info) Description [address] [facility] [address] [place], [place] [phone] Krystin Frederick FNP Chronic migraine without aura without status migrainosus, [...] Office Visit [facility] [address] [place], [place] [phone] Nicky Thibodeaux MD 230 [place], [place] [phone] 05/15/2025 2:00 PM EST Office Visit [facility] OPTOMETRY [address] [place], [place] [phone] Shannan Eller, OD 230 [place] [address] documented as of this encounter Visit Diagnoses Diagnosis Chronic migraine without aura without status migrainosus, not intractable documented in this encounter Care Teams Laundry Route Driver Relationship Specialty Start Date End Date Nicky Thibodeaux MD 230 [place] [address] PCP - General Family Medicine 04/20/18 Wu Manzo MD [address] [place] [address] [address] [place] [address] Pain Medicine 03/29/24 Feroz Ascencio MD [address] [place] [phone] Orthopaedic Surgery 06/15/24 Rolanda Tirado Glass CleanerFitting Room Operator 06/25/23 Latia Guardado PA-C [facility] 04/26/24 documented as of this encounter
--- OUTSIDE RECORDS SUMMARY | 2025-01-31 16:00 | XMS_ITS | Encounter Summary ---
Author Organization [employer] Address [address] [facility] 7t [place] [address] Care Team Providers Care Windshield Wiper Repairer Name Role Phone Morelia, Nicky CASTAÑEDA Primary Care Provider [phone]- [phone] Wu Manzo MD Unavailable Feroz Ascencio MD Unavailable [phone] Reason for Visit * Reason Comments Med Refill Encounter Details Date Type Department Care Team (Late st Contact Info) Description 04/29/2023 Refill [facility] 230 [place] [address] Chelsi Canseco ANP 230 [place] [address] Social History Tobacco Use Types Packs/Day Years [...] Office Visit [facility] [address] [place] [address] Nicky Thibodeaux MD 230 [place] [address] 05/15/2025 2:00 PM EST Office Visit [facility] [address] [place] [address] Rafita, Shannan, OD 230 [place] [address] documented as of this encounter Visit Diagnoses Not on filedocumented in this encounter Additional Health Concerns Assessment Noted Time PHQ-9 Depression Total Score: 22 023 2:09 PM EDT documented as of this encounter Care Teams Windshield Wiper Repairer Relationship Specialty Start Date End Date Nicky Thibodeaux MD 230 [place] [address] PCP - General Family Medicine 04/20/18 Wu Manzo MD [address] [place] [address] Pain Medicine 03/29/24 Feroz Ascencio MD [address] [place] [phone] Orthopaedic Surgery 06/15/24 Rolanda Tirado Underground RepairerConservation Scientist 06/25/23 TREASURE [facility] 04/26/24 documented as of this encounter
--- OUTSIDE RECORDS SUMMARY | 2025-01-31 16:01 | XMS_ITS | Encounter Summary ---
Author Organization [employer] Address [address] [facility] 7t [place] [address] Care Team Providers Care Production Supervisor Trainee Name Role Phone Nicky Thibodeaux MD Primary Care Provider [phone]- [phone] Wu Manzo MD Unavailable Feroz Ascencio MD Unavailable [phone] Reason for Visit * Reason Onset Date Comments pt1 10/12/2024 Encounter Details Date Type Department Care Team (Late st Contact Info) Description 10/12/2024 Telephone [facility] MEDICINE 230 [place] [address] Nicky Thibodeaux MD 230 [place] [address] pt1 Social History Tobacco Use Types Packs/Day [...] EDT CHW Cheyenne Carpio submitted pt1 to [facility] for location below and will take up to 7 days to getapproved. CHW placed call to patient to let her know, patient understood and will call if she has any concerns. documented in this encounter Plan of Treatment Upcoming Encounters Date Type Department Care Team (Late st Contact Info) Description 03/29/2025 2:15 PM EST Office Visit [facility] MEDICINE [address] [place] [address] Nicky Thibodeaux MD [address] [place] [address] 05/15/2025 2:00 PM EST Office Visit [facility] OPTOMETRY [address] [place] [address] Shannan Eller OD 230 [place] [address] documented as of this encounter Visit Diagnoses Not on filedocumented in this encounter Additional Health Concerns Assessment Noted Time PHQ-9 Depression Total Score: 14 024 10:51 AM EST documented as of this encounter Care Teams Production Supervisor Trainee Relationship Specialty Start Date End Date Nicky Thibodeaux MD 230 [place] [address] PCP - General Family Medicine 04/20/18 Wu Manzo MD [address] [facility] [address] [place] [address] Pain Medicine 03/29/24 Feroz Ascencio MD [address] [place] [phone] Orthopaedic Surgery 06/15/24 Rolanda Tirado Grout Machine OperatorTransit Worker 06/25/23 Latia Guardado PA-C [facility] 04/26/24 documented as of this encounter
--- OUTSIDE RECORDS SUMMARY | 2025-01-31 16:01 | XMS_ITS | Encounter Summary ---
Author Organization [employer] Address [address] [facility] [address] [place] [address] Care Team Providers Care Check Viewer Name Role Phone Nicky Thibodeaux MD Primary Care Provider [phone] Wu Manzo MD Unavailable Feroz Ascencio MD Unavailable [phone] Reason for Visit * Reason Onset Date Comments Pre-visit Planning 11/09/2023 Encounter Details Date Type Department Care Team (Late st Contact Info) Description 11/09/2023 Telephone [facility] MEDICINE [address] [place] [address] Nicky Thibodeaux MD [address] [place] [address] Pre-visit Planning Social History Tobacco Use Types [...] 2:15 PM EST Office Visit [facility] MEDICINE [address] [place] [address] Nicky Thibodeaux MD [address] [place] [address] 05/15/2025 2:00 PM EST Office Visit [facility] OPTOMETRY [address] [place] [address] Rafita, Shannan, OD [address] [place] [address] documented as of this encounter Visit Diagnoses Not on filedocumented in this encounter Additional Health Concerns Assessment Noted Time PHQ-9 Depression Total Score: 22 023 2:09 PM EDT documented as of this encounter Care Teams Check Viewer Relationship Specialty Start Date End Date Nicky Thibodeaux MD [address] [place] [address] PCP - General Family Medicine 04/20/18 Wu Manzo MD [address] [place] [address] Drive [address] [place] [address] Pain Medicine 03/29/24 Feroz Ascencio MD [address] [place] [phone] Orthopaedic Surgery 06/15/24 Rolanda Tirado Director Of Category ManagementLine Crewman 06/25/23 TREASURE [facility] 04/26/24 documented as of this encounter
--- OUTSIDE RECORDS SUMMARY | 2025-01-31 16:01 | XMS_ITS | Encounter Summary ---
Author Organization [employer] Address [address] [place] [address] 7t [place] [address] Care Team Providers Care Mold Carpenter Name Role Phone Nicky Thibodeaux MD Primary Care Provider [phone] Wu Manzo MD Unavailable Feroz Ascencio MD Unavailable [phone] Encounter Details Date Type Department Care Team (Late st Contact Info) Description 05/22/2022 Orders Only [facility] MEDICINE [address] [place] [address] Nereida Horner LPN Social History Tobacco Use [...] Visit [facility] MEDICINE [address] [place] [address] Nicky Thibodeaux MD [address] [place], [place] [phone] 05/15/2025 2:00 PM EST Office Visit [facility] OPTOMETRY [address] [place] [address] Shannan Eller, OD [address] [place] [address] documented as of this encounter Visit Diagnoses Not on filedocumented in this encounter Care Teams Mold Carpenter Relationship Specialty Start Date End Date [place], MD Nicky [address] [place] [address] PCP - General Family Medicine 04/20/18 Wu Manzo MD [address] [place] [address] Pain Medicine 03/29/24 Feroz Ascencio MD [address] [place] [phone] Orthopaedic Surgery 06/15/24 Rolanda Tirado Hoop RiveterLeaf Sticker 06/25/23 Latia Guardado PA-C [facility] 04/26/24 documented as of this encounter
--- OUTSIDE RECORDS SUMMARY | 2025-01-31 16:01 | XMS_ITS | Encounter Summary ---
Author Organization [employer] Address [address] [facility] [address] 7t [place] [address] Care Team Providers Care Food Counselor Name Role Phone Nicky Thibodeaux MD Primary Care Provider [phone]- [phone] Wu Manzo MD Unavailable Feroz Ascencio MD Unavailable [phone] Encounter Details Date Type Department Care Team (Late st Contact Info) Description 2023 Orders Only [facility] MEDICINE [address] [place], [place] [phone] Nicky Thibodeaux MD [address] [place] [address] Social History Tobacco Use Types Packs/Day Years [...] 2:15 PM EST Office Visit [facility] MEDICINE [address] [place] [address] Nicky Thibodeaux MD [address] [place] [address] 05/15/2025 2:00 PM EST Office Visit [facility] OPTOMETRY [address] [place] [address] Rafita, Shannan, OD 230 [place] [address] documented as of this encounter Visit Diagnoses Not on filedocumented in this encounter Additional Health Concerns Assessment Noted Time PHQ-9 Depression Total Score: 22 023 2:09 PM EDT documented as of this encounter Care Teams Food Counselor Relationship Specialty Start Date End Date Nicky Thibodeaux MD [address] [place] [address] PCP - General Family Medicine 04/20/18 Wu Manzo MD [address] [place] [address] Pain Medicine 03/29/24 Feroz Ascencio MD [address] [place] [phone] Orthopaedic Surgery 06/15/24 Rolanda Tirado Bench MolderTrouble Operator 06/25/23 TREASURE [facility] 04/26/24 documented as of this encounter
--- OUTSIDE RECORDS SUMMARY | 2025-01-31 16:01 | XMS_ITS | Encounter Summary ---
Author Organization [employer] Address [address] [facility] [address] 7t [place] [address] Care Team Providers Care Cryptozoologist Name Role Phone Nicky Thibodeaux MD Primary Care Provider [phone]- [phone] Wu Manzo MD Unavailable Feroz Ascencio MD Unavailable [phone] Reason for Visit * Reason Onset Date Comments PT-1 12/08/2023 Encounter Details Date Type Department Care Team (Late st Contact Info) Description 12/08/2023 Telephone [facility] MEDICINE [address] [place] [address] Nicky Thibodeaux MD [address] [place] [address] PT-1 Social History Tobacco Use Types Packs/Day [...] Y/N: Yes Provider name or facility name: [facility] pain management Facility Address: [address] [place] [address] Escort needed: Y/N: No Do you have a wheelchair: Y/N: No If yes- Manual or electric: N/A (uses walker) Visits: twice a month documented in this encounter Plan of Treatment Upcoming Encounters Date Type Department Care Team (Late st Contact Info) Description 03/29/2025 2:15 PM EST Office Visit [facility] MEDICINE [address] [place] [address] Nicky Thibodeaux MD [address] [place] [address] 05/15/2025 2:00 PM EST Office Visit [facility] OPTOMETRY [address] [place] [address] Shannan Eller, GREG [address] [place] [address] documented as of this encounter Visit Diagnoses Not on filedocumented in this encounter Additional Health Concerns Assessment Noted Time PHQ-9 Depression Total Score: 22 023 2:09 PM EDT documented as of this encounter Care Teams Cryptozoologist Relationship Specialty Start Date End Date Nicky Thibodeaux MD [address] [place] [address] PCP - General Family Medicine 04/20/18 Wu Manzo MD [address] [facility] [address] [place] [address] Pain Medicine 03/29/24 Feroz Ascencio MD [address] [place] [phone] Orthopaedic Surgery 06/15/24 Rolanda Tirado Imagery AnalystCardiovascular Technician 06/25/23 TREASURE [facility] 04/26/24 documented as of this encounter
--- OUTSIDE RECORDS SUMMARY | 2025-01-31 16:01 | XMS_ITS | Encounter Summary ---
Author Organization [employer] Address 75 [facility] 7t [place] [address] Care Team Providers Care Gas Processing Plant Operator Name Role Phone Nicky Thibodeaux MD Primary Care Provider [phone] Wu Manzo MD Unavailable Feroz Ascencio MD Unavailable [phone] Encounter Details Date Type Department Care Team (Latest Contact Info) Description 04/05/2021 Abstract [facility] CONVERSIONS Dental, Provider, DDS Social [...] Office Visit [facility] MEDICINE [address] [place] [address] Nicky Thibodeaux MD [address] [place] [address] 05/15/2025 2:00 PM EST Office Visit [facility] OPTOMETRY [address] [place] [address] Shannan Eller, OD [address] [place] [address] documented as of this encounter Visit Diagnoses Not on filedocumented in this encounter Care Teams Gas Processing Plant Operator Relationship Specialty Start Date End Date [place], MD Nicky [address] [place] [address] PCP - General Family Medicine 04/20/18 Wu Manzo MD [address] [facility] [address] [place] [address] Pain Medicine 03/29/24 Feroz Ascencio MD [address] [place] [phone] Orthopaedic Surgery 06/15/24 Rolanda Tirado Oscillograph TechnicianRevenue Agent 06/25/23 TREASURE [facility] 04/26/24 documented as of this encounter
--- OUTSIDE RECORDS SUMMARY | 2025-01-31 16:01 | XMS_ITS | Encounter Summary ---
Author Organization [employer] Address 75 [facility] 7t [place] [address] Care Team Providers Care Accreditation Manager Name Role Phone Nicky Thibodeaux MD Primary Care Provider [phone] Wu Manzo MD Unavailable Feroz Ascencio MD Unavailable [phone] Reason for Visit * Reason Onset Date Comments Nurse Triage 05/11/2024 Encounter Details Date Type Department Care Team (Late st Contact Info) Description 05/11/2024 Telephone [facility] MEDICINE [address] [place] [address] Nicky Thibodeaux MD [address] [place] [address] Nurse Triage Social History Tobacco Use Types [...] or Thursday.Pt wants appt on Thursday when SENIOR PROCESS ANALYST is available to bring pt. Reviewed [facility] operating hours and that wait times vary. Unable to book sick on site > 48 hours. Pt advised can call back on Thursday for Thursday scheduled. Reviewed home care advise, ER precautions and reasons to call back. Protocol Used: Dizziness (Adult) Protocol-Based Disposition: Discuss with PCP and Callback by Nurse Today Sent to PCP and [place] team Primary care nurses for follow up [...] Description 03/29/2025 2:15 PM EST Office Visit [facility] MEDICINE [address] [place] [address] Nicky Thibodeaux MD [address] [place] [address] 05/15/2025 2:00 PM EST Office Visit [facility] OPTOMETRY [address] [place] [address] Rafita, Shannan, OD [address] [place] [address] documented as of this encounter Visit Diagnoses Not on filedocumented in this encounter Additional Health Concerns Assessment Noted Time PHQ-9 Depression Total Score: 14 024 10:51 AM EST documented as of this encounter Care Teams Accreditation Manager Relationship Specialty Start Date End Date Nicky Thibodeaux MD [address] [place] [address] PCP - General Family Medicine 04/20/18 Wu Manzo MD [address] [place] [address] Pain Medicine 03/29/24 Feroz Ascencio MD [address] [place] [phone] Orthopaedic Surgery 06/15/24 Rolanda Tirado Professor Of PsychiatryTest Operator 06/25/23 TREASURE [facility] 04/26/24 documented as of this encounter
--- OUTSIDE RECORDS SUMMARY | 2025-01-31 16:01 | XMS_ITS | Clinical Summary ---
Author Organization [employer] Address [address] [place] [address] 7[address] [place] [address] Care Team Providers Care Fish Butcher Name Role Phone Nicky Thibodeaux MD Primary Care Provider [phone] Wu Manzo MD Unavailable Feroz Ascencio MD Unavailable Allergies Active Allergy Reactions Criticality Noted Date Comments Aspirin GI intolerance Low 01/03/2013 Ibuprofen GI intolerance Low 12/29/2014 Medications Spiriva HandiHaler 18 MCG inhalation capsuleIndication s:Chronic obstructive pulmonary disease, unspecified COPD type (CMS/HCC) (FORMERLY [facility]) INHALE 1 CAPSULE VIA HANDIHALER ONCE DAILY [...] with anxiety 50 mg. Active HYDROcodone-aceta minophen ([place]) 5-325 MG tabletIndications :Chronic low back pain, [...] 1 (one) time per week. 2 mL Active lidocaine (Lidoderm) 5 % patchIndications: Pain APPLY 1 PATCH EVERY DAY MAY WEAR UP TO 12 HOURS 30 patch 025 Active lidocaine-priloca ine (Emla) 2.5-2.5 % creamIndications: Pain Apply topically if needed each day for mild pain. APPLY TOPICALLY 1 (ONE) TIME FOR 1 DOSE. APPLY TWICE A DAY NEEDED FOR PAIN 30 g 025 Active SUMAtriptan (Imitrex) 50 MG tabletIndications [...] A DAY NEEDED 60 tablet 025 Active diclofenac (Voltaren) 75 MG [...] due after 03/14/25 -eye care facilitated by [facility] -dental home is [facility] care proxy paperwork completed by to the patient 07/17/23 Assessment & Plan (03/14/2024 11:23 AM EST): -next physical exam due after 03/14/25 -eye care facilitated by [facility] -dental home is [facility] care proxy paperwork completed by to the patient 07/17/23 Assessment & Plan (11/19/2023 11:08 AM EDT): -next physical exam due after 12/11/23 -eye care facilitated by [facility] -dental home is [facility] proxy paperwork completed by to the patient 07/17/23 Assessment & Plan (07/17/2023 10:10 AM EDT): -next physical exam due after 12/11/23 -eye care facilitated by [facility] -dental home is [facility] proxy paperwork completed by the [...] MRI image on the disc from [facility] where she had MRI performed. I also requested her to read brochures about [facility] [facility] and [employer]. -note 12/30/24 at [facility] case reviewed with dr taveras, he would offer her ACDF C4-5, C5-6. i will call her and update her. Assessment & Plan (07/17/2023 10:03 AM EDT): Her pain is not controlled. Dillon asked her to reach out to her original prescriber for Vicodin at [facility]. She is 7 weeks post-op sugery and is weaning her percocet's. Dillon explained since she is on Ambien, gabapentin, and benzodiazapine I would not be able to safely prescribe the medications through our program. Assessment & Plan (12/15/2022 9:38 AM EDT): Her pain is not controlled. Dillon asked her to reach out to her original prescriber for Vicodin at [facility]. She is 7 weeks post-op sugery and is weaning her percocet's. Dillon explained since she is on Ambien, gabapentin, and benzodiazapine I would not be able to safely prescribe the medications through our program. Assessment & Plan (09/03/2022 12:12 PM EDT): Her pain is not controlled. Dillon asked her to reach out to her original prescriber for Vicodin at [facility]. She is 7 weeks post-op sugery and is weaning her percocet's. Dillon explained since she is on Ambien, gabapentin, and benzodiazapine I would not be able to safely prescribe the medications through our program. Arthritis 09/02/2022 Cerebrovascular accident (CVA) (CMS/HCC) 023 Overview (11/18/2023): Pt had episode of [...] considered to be 1.7 or 2.4 mg senior living. -PA resubmitted 11/19/23 - Advised to Switch [...] considered to be 1.7 or 2.4 mg senior living. -PA resubmitted 11/19/23 Assessment & Plan (09/23/2023 [...] considered to be 1.7 or 2.4 mg senior living. Chronic low back pain 07/23/2022 Overview (01/25/2025): -s/p surgeryL4-L5 fusion for spondylolisthesis 07/10/[address] Tania Escamilla -thoracic x rays 01/29/23 demonstrate dextroscolosis, disc space narrowing at T6-T7, mild degenerative changes -lumbar MRI 12/10/22 demonstrates transitional lumbosacra anatomy with sacralized L5, multilevel disc bulge, facet arthropathy, LF thickening; L1-L2 mild left NFS; L2-L3 mild central stenosis, interbody device -Pt continues to report severe pain. She is getting Vicodin from [facility]. She requests opiate medications from pa. We have reviewed her sedating medications together [...] therapy, multiple injections, and awaiting TENs unit. -[facility] [place] prescribing hydrocodone/APA 5/325 to support instrumented activities [...] MRI image on the disc from [facility] where she had MRI performed. I also requested her to read brochures about [facility] [employer]. -01/24/25 b/l therapeutic sacroiliac joint injection with Dr. Wu Manzo MD Assessment & Plan (03/14/2024 11:31 AM EST): [...] severe pain. She is getting Vicodin from [facility]. She requests opiate medications from [...] pain. She sees a therapist and psychiatrist. -[facility] [place] prescribing hydrocodone/APA 5/325 to support instrumented activities [...] severe pain. She is getting Vicodin from [facility]. She requests opiate medications from [...] -Referral placed to Gynecology, Dr. Aaron 07/17/23 -[facility] called 09/23/23 stating pt declined [...] -Referral placed to Gynecology, Dr. Aaron 07/17/23 -[facility] OBGYN called 09/23/23 stating pt declined [...] -Referral placed to Gynecology, Dr. Aaron 07/17/23 -[facility] OBGYN called 09/23/23 stating pt declined [...] left MARISELA 01/29/[address] Neal in [place] -s/p bilateral GT bursa injection under fluoroscopic guidance 06/13/24 with moderate reduction of pain in bilateral lateral hips -seen by ortho at [facility] 07/21/24 Hip pain 07/13/2012 [...] Type Department Care Team Description 01/23/2025 Telephone [facility] [place] [address] Nicky Thibodeaux MD March01/23/2025 Travel 01/20/2025 Refill [facility] [place] [place] [address] Nicky Thibodeaux MD Pain; Osteoarthritis of hip, unspecified laterality, unspecified osteoarthritis type 12/28/2024 4:00 PM EDT Office Visit [facility] [place] [place] [address] Nicyk Thibodeaux MD Class 2 severe obesity due to excess calories with serious comorbidity and body mass index (BMI) of 35.0 to 35.9 in adult (CMS/FORMERLY [facility]) (Primary Dx); Dietary counseling; Exercise counseling; Positive depression screening 12/28/2024 Travel 12/27/2024 Telephone [facility] [place] [place] [address] Nicky Thibodeaux MD chart prep 12/26/2024 Orders Only GENERIC EXTERNAL DATA DEPARTMENT Provider, Generic External Data 12/25/2024 Refill [facility] [place] [address] Nicky Thibodeaux MD Vitamin D deficiency 12/23/2024 Refill [facility] [place] [address] Nicky Thibodeaux MD Chronic migraine without aura without status migrainosus, not intractable; Pain 12/20/2024 Telephone [facility] [place] [address] Nicky Thibodeaux MD Prior Authorization ( PA: Erin) 12/13/2024 Refill [facility] [place] [address] Nicky Thibodeaux MD Osteoarthritis of hip, unspecified laterality, unspecified osteoarthritis type; Pain 12/12/2024 Telephone [facility] [place] [address] Nicky Thibodeaux MD PT1 12/06/2024 Telephone [facility] [place], [place] [phone] Nicky Thibodeaux MD 11/24/2024 Refill [facility] [address] [facility] [place] [address] Nicky Thibodeaux MD Pain 11/16/2024 Refill [facility] [address] [place] [address] Nicky Thibodeaux MD Pain 11/16/2024 Refill [facility] [address] [facility], [place] [phone] Chelsi Canseco ANP Pain 11/14/2024 Refill [facility] [address] [facility], [place] [phone] Angie Eli MD Osteoarthritis of hip, unspecified laterality, unspecified osteoarthritis type; Pain from Last 3 Months Immunizations Immunization [...] Description 03/29/2025 2:15 PM EST Office Visit [facility] [address] [place] [address] Nicky Thibodeaux MD [address] [place] [address] 05/15/2025 2:00 PM EST Office Visit [facility] [address] [place] [address] Shannan Eller, OD [address] [place] [address] Health Maintenance Due Date Last Done Comments [...] EDT) Sodium 144 135 - 145 mmol/L [facility] Potassium 4.6 3.3 - 5.1 mmol/L [facility] Chloride 111(H) 96 - 108 mmol/L [facility] Carbon Dioxide 23 22 - 29 mmol/L [facility] Anion Gap 15 12 - 20 [facility] Urea Nitrogen (BUN) 15 9 - 16 mg/dL [facility] Creatinine, Serum 0.98 0.5 - 1.4 mg/dL [facility] Estimated Glomerular Filt Rate 58 [facility] Comment:Chronic Kidney Disea se: Estimated GFR < 60 mL/min/1.97r0Srirju Kidney Disease: Estimated GFR < 15 mL/min/1.73m2 Glucose Fasting 97 60 - 99 mg/dL [facility] Calcium 9.1 8.4 - 10.2 mg/dL [facility] Bilirubin, Total 0.1 0.0 - 1.0 mg/dL [facility] Aspartate Amino Transferase 19 5 - 31 U/L [facility] Alanine Aminotransferase 22 0 - 31 U/L [facility] Total Protein 7.2 6.5 - 8.0 g/dL [facility] Albumin Level 4.2 3.5 - 5.0 g/dL [facility] Alkaline Phosphatase 90 39 - 117 U/L [facility] 12/26/2024 10:0 8 AM EDT 12/26/2024 11:21 AM EDT us Generic External Data Provider LAB BLOOD ORDERAB LES Final Result [facility] [address] [place] [address] [phone] * (ABNORMAL) CBC auto differential (12/26/2024 10:08 AM EDT) White Blood Count 8.3 4.8 - 10.8 X10*3/uL [facility] Red Blood Count 4.05(L) 4.20 - 5.50 X10*6/uL [facility] Hemoglobin 11.4(L) 12.0 - 16.0 g/dl [facility] Hematocrit 35.8(L) 37.0 - 47.0 % [facility] Mean Corpuscular Volume 88.4 80.0 - 98.0 fL [facility] Mean Corpuscular Hemoglobin 28.1 27.0 - 33.0 pg [facility] Mean Corpuscular HGB Conc 31.8 31.0 - 35.0 g/dl [facility] Red Cell Distribution Width 14.3 11.0 - 16.0 % [facility] Platelet Count 281 160 - 400 X10*3/uL [facility] Mean Platelet Volume 10.8 9.4 - 12.3 fL [facility] Neutrophils Percent Auto 67.5 45 - 73 % [facility] Imm Gran Pct Auto 0.2 0.0 - 0.4 % [facility] Lymphocytes Percent Auto 23.6 20 - 40 % [facility] Monocytes Percent Auto 6.9 2 - 11 % [facility] Eosinophils Percent Auto 1.2 0 - 4 % [facility] Basophils Percent Auto 0.6 0 - 2 % [facility] NRBC Pct Auto 0.0 0.0 - 0.2 /100WBC [facility] Neutrophils Absolute Auto 5.6 2.0 - 8.3 x10*3/uL [facility] Imm Gran Abs Auto 0.02 0.00 - 0.03 X10*3/uL [facility] Lymphocytes Absolute Auto 2.0 1.2 - 4.9 X10*3/uL [facility] Monocytes Absolute Auto 0.6 0.1 - 1.2 X10*3/uL [facility] Eosinophils Absolute Auto 0.1 0.0 - 0.4 X10*3/uL [facility] Basophils Absolute Auto 0.1 0.0 - 0.2 X10*3/uL [facility] NRBC Abs Auto 0.000 0.0 - 0.012 X10*3/uL [facility] 12/26/2024 10:0 8 AM EDT 12/26/2024 11:16 AM EDT us Generic External Data Provider LAB BLOOD ORDERAB LES Final Result [facility] [address] [place] [phone] * (ABNORMAL) Lipid Panel, Standard (12/26/2024 10:08 AM EDT) Triglycerides 198(H) <150 mg/dL [facility] Comment:Desirable Triglyceri de: less than 150 mg/dLBorderline High Triglyceride 150-199 mg/dLHigh Triglyceride: 200-499 mg/dLVery High Triglyceride: greater than or equal to 5OO mg/dL Cholesterol 186 <200 mg/dL [facility] Comment:Desirable Cholestero l: less than 200 mg/dLBorderline High Cholesterol: 200-239 mg/dLHigh Cholesterol: greater than 239 mg/dL LDL Cholesterol Calculated 97 <100 mg/dL [facility] Comment:Desirable LDL: less than 100 mg/dLNear Optimal/Above Optimal LDL: 110- 129 mg/dLBorderline High LDL: 130-159 mg/dLHigh LDL: 160-189 mg/dLVery High LDL: greater than or equal to 190 mg/dL HDL Cholesterol 50 >40 mg/dL [facility] Comment:Desirable HDL: great er than 40 mg/dL Note: This HDL assay may give artificially low results in patients with liver disease. 12/26/2024 10:0 8 AM EDT 12/26/2024 11:21 AM EDT us Generic External Data Provider LAB BLOOD ORDERAB LES Final Result [facility] [address] [place], [place] [phone] * BI Mammogram Screening Tomosynthesis Bilateral (09/30/2024 2:45 PM EDT) Anatomical Region Laterality Modality Breast Bilateral Mammography 09/30/2024 2:45 PM EDT Narrative 10/08/2024 8:50 PM EDT [facility] [address] [place] [address] Mammography Report Signed Patient: Darcy Medina MR#: [id number] : 1965 Acct:[id number] Age/Sex: 59 / F ADM Date: 09/30/24 Loc: HO.MAMMO Attending Dr: Nicky Thibodeaux MD Ordering Physician: Nicky Thibodeaux MD Results: 2B enign Findings Date of Service: 09/30/24 Follow Up: 1 Year From [facility] Mammogram Procedure(s): MM tomosynthesis screening BI Accession Number(s): [id number] cc: Nicky Thibodeaux MD EXAMINATION: MM SCREENING [...] 10/08/24 2047 DD/ 1445 TD/TT: 09/30/24 1500 Scaffold Worker: Procedure Note Donotyulisainterpreter, Image - 10/08/2024 [facility] [address] [place] [address] Mammography Report Signed Patient: Darcy Medina FMR#: [id number] : 1965Acct:[id number] Age/Sex: 59 / FADM Date: 09/30/24 Loc: HO.MAMMO Attending Dr: Nicky Thibodeaux MD Ordering Physician: Nicky Thibodeaux MDResults: 2B enign Findings Date of Service: 09/30/24Follow Up: 1 Year From Orig inal Mammogram Procedure(s): MM tomosynthesis screening BI Accession Number(s): [id number] cc: Nicky Thibodeaux MD EXAMINATION: MM SCREENING [...] OV> 10/08/242046 DD/ 1445 TD/TT: 09/30/24 1500 Scaffold Worker: Nicky Thibodeaux MD IMG BI PROCEDURES Edited R esult - Final * Hepatitis C Antibody with Reflex to HCV, RNA, Quantitative, Real-Time PCR (09/03/2022 11:58 AM EDT) Hepatitis C Antibody NON-REACT DILLON NON-REACT DILLON [facility] [place] [facility] Index 0.02 <1.00 [facility] [place] [facility] Comment: HCV antibody was non-reactive. There is no laboratory evidence of HCV infection. In most cases, no further action is required. However, if recent HCV exposure is suspected, a test for HCV RNA (test code 29539) is suggested. For additional information please refer to http://[employer]/faq/SUP47c7 (This link is being provided for informational/ educational purposes only.) Blood Venous blood specimen / Unknown 09/03/2022 11:58 AM EDT 09/03/2022 11:58 AM EDT Narrative [facility] - 09/07/2022 11:33 PM EDT FASTING:YES FASTING: YES Result [facility] Nicky Thibodeaux MD LAB BLOOD ORDERABLES Final Result [facility] [address] [place] [address] [facility] [place] [facility] [address] [place] [address] * HIV-1/2 Antigen and Antibodies, Fourth Generation, with Reflexes (09/03/2022 11:58 AM EDT) HIV Antigen/Antibody, 4th Generation NON-REAC TIVE NON-REAC TIVE [facility] [place] [facility] Comment: HIV-1 antigen and HIV-1/HIV-2 antibodies were [...] purpose. For additional information please refer to http://[employer]/faq/PGS597 (This link is being provided for informational/ educational purposes only.) The performance of this assay has not been clinically validated in patients less than 2 years old. Blood Venous blood specimen / Unknown 09/03/2022 11:58 AM EDT 09/03/2022 11:58 AM EDT Narrative [facility] - 09/07/2022 11:33 PM EDT FASTING:YES FASTING: YES Nicky Thibodeaux MD LAB BLOOD ORDERABLES Final Result [facility] [address], [place] [address] [facility] [address] [place] [address] * (ABNORMAL) THINPREP TIS PAP AND HPV mRNA E6/E7, CT/NG, TRICH (08/02/2021 11:49 AM EDT) Chlamydia trachomatis RNA, TMA, Urogenital NOT DETECTED NOT DETECTED [facility] Clinical Information: None given [facility] COMMENT SEE COMMENT [facility] Comment: The analytical performance characteristics of this assay, when used to test SurePath(TM) specimens have been determined by [facility]. The modifications have not been cleared or approved by the FDA. This assay has been validated pursuant to the CLIA regulations and is used for clinical purposes. For additional information, please refer to https://[employer]/faq/ANF851 (This link is being provided for information/ [...] has been evaluated with computer assisted technology. [facility] Retail Department Reset: SEE COMMENT [facility] Comment: DCR, CT(ASCP) CT screening location: [place] [address] HPV nRNA E6/E7 Detected(A) Not Detected [facility] Comment: Methodology: Color Straining Bag Washer-Mediated Amplification This assay detects E6/E7 viral messenger RNA (mRNA) from 14 high-risk HPV types (16,18,31,33,35,39,45,51,52,56,58,59,66,68). The analytical performance characteristics of this assay have been determined by [facility]. The modifications have not been cleared or approved by the FDA. This assay has been validated pursuant to the CLIA regulations and is used for clinical purposes. For additional information, please refer to http://[employer]/faq/TNJ596b1 (This link if provided for information/ educational purposes only.) Interpretation/Res ult: SEE COMMENT [facility] Comment: Negative for intraepithelial lesion or malignancy. Atrophic pattern; predominantly parabasal cells LMP: NONE GIVEN [facility] Neisseria gonorrhoeae RNA, TMA, Urogenital NOT DETECTED NOT DETECTED [facility] Prev. BX: NONE GIVEN [facility] Prev. PAP: NONE [facility]IVEN [facility] Review Retail Department Reset: SEE COMMENT [facility] Comment: JXM, CT(ASCP) CT screening location: [place] [address] SOURCE: None given [facility] Statement Of Adequacy: SATISFACTORY FOR EVALUATION [facility] Trichomonas vaginalis, QL, TMA, PAP Vial NOT DETECTED NOT DETECTED [facility] Comment: The analytical performance characteristics of this assay have been determined by [facility]. The modifications have not been cleared or approved by the FDA. This assay has been validated pursuant to the CLIA regulations and is used for clinical purposes. For additional information, please refer to http://[employer]/ faq/Trichomonastma (This link is being provided for information/ educational purposes only.) 08/02/2021 11:4 9 AM EDT Nicky Thibodeaux MD LAB PATHOLOGY ORDERABLES F inal Result [facility] [address] * Pap Smear (08/02/2021 12:00 AM EDT) Swab Nicky Thibodeaux MD LAB CYTOLOGY ORDERABLES Fi nal Result [facility] [address] [place] [address] [phone] * Colonoscopy (12/11/2015) Colonoscopy normal with Dr. Delgado Maira Guevara MD HEALTH MAINTENANCE Final Result from Last 3 Months or Most Recently Relevant to Health Maintenance Insurance [facility] Advance Directives Documents on File Type Date Recorded Patient Counselor Camp Expl anation Advance Directives and Living Will 07/17/2023 Health Care Proxy 07/17/23 Care Teams Fish Butcher Relationship Specialty Start Date End Date Morelia, MD Nicky [address] [place] [address] PCP - General Family Medicine 04/20/18 Wu Manzo MD [address] [place] [address] Pain Medicine 03/29/24 Feroz Ascencio MD [address] [place] [phone] Orthopaedic Surgery 06/15/24 Rolanda Tirado [employer] ArtilleryTrimmer Operator 06/25/23 Latia Guardado PA-C [facility] 04/26/24
--- OUTSIDE RECORDS SUMMARY | 2025-01-31 16:01 | XMS_ITS | Encounter Summary ---
Author Organization [employer] Address [address] [facility] 7t [place] [address] Care Team Providers Care Food And Beverage Manager Name Role Phone Nicyk Thibodeaux MD Primary Care Provider +1- [phone] Wu Manzo MD Unavailable Feroz Ascencio MD Unavailable [phone] Reason for Visit * Reason Onset Date Comments Durable Medical Equipment 08/07/2022 Encounter Details Date Type Department Care Team (Late st Contact Info) Description 08/07/2022 Telephone [facility] MEDICINE [address] [place] [address] Nicky Thibodeaux MD 230 [place] [address] Durable Medical Equipment Social History Tobacco Use [...] - 08/14/2022 9:23 AM EDT Tc from [facility] requesting status on a form send over for [facility]. Please contact Renzo at [phone] * Telephone Encounter - Wellington Smith - 08/07/2022 9:57 AM EDT Tc from [facility] with [facility] requesting a status on a form sent over for a [facility] Grab [facility]. Please contact renzo at [phone] documented in this encounter Plan of Treatment Upcoming Encounters Date Type Department Care Team (Late st Contact Info) Description 03/29/2025 2:15 PM EST Office Visit [facility] MEDICINE 230 [place] [address] Nicky Thibodeaux MD 230 [place] [address] 05/15/2025 2:00 PM EST Office Visit [facility] OPTOMETRY [address] [place] [address] Rafita, Shannan, OD 230 [place] [address] documented as of this encounter Visit Diagnoses Not on filedocumented in this encounter Additional Health Concerns Assessment Noted Time PHQ-9 Depression Total Score: 22 023 2:09 PM EDT documented as of this encounter Care Teams Food And Beverage Manager Relationship Specialty Start Date End Date Nicky Thibodeaux MD 230 [place] [address] PCP - General Family Medicine 04/20/18 Wu Manzo MD [address] [facility] [address] [place] [address] Pain Medicine 03/29/24 Feroz Ascencio MD [address] [place] [address] [phone] Orthopaedic Surgery 06/15/24 Rolanda Tirado Blow Molding Machine TenderFlight Agent 06/25/23 TREASURE [facility] 04/26/24 documented as of this encounter
--- OUTSIDE RECORDS SUMMARY | 2025-01-31 16:01 | XMS_ITS | Encounter Summary ---
Author Organization [employer] Address [address] [place] [address] 7t [place] [address] Care Team Providers Care Plate Keeper Name Role Phone Morelia, Nicky CASTAÑEDA Primary Care Provider +1- [phone] Wu Manzo MD Unavailable Feroz Ascencio MD Unavailable [phone] Reason for Visit * Reason Comments Med Refill Encounter Details Date Type Department Care Team (Late st Contact Info) Description 09/30/2022 Refill [facility] MED[facility] 230 [place] [address] Deborah Stratton MD 230 [place] [address] Chronic migraine without aura without status migrainosus, [...] Visit [facility] MEDICINE [address] [place] [address] Nicky Thibodeaux MD 230 [place] [address] 05/15/2025 2:00 PM EST Office Visit [facility] OPTOMETRY [address] [place] [address] Rafita, Shannan, OD 230 [place] [address] documented as of this encounter Visit Diagnoses Diagnosis Chronic migraine without aura without status migrainosus, not intractable documented in this encounter Additional Health Concerns Assessment Noted Time PHQ-9 Depression Total Score: 22 023 2:09 PM EDT documented as of this encounter Care Teams Plate Keeper Relationship Specialty Start Date End Date Nicky Thibodeaux MD 230 [place] [address] PCP - General Family Medicine 04/20/18 Wu Manzo MD [address] [place] [address] [address] [place] [address] Pain Medicine 03/29/24 Feroz Ascencio MD [address] [place] [address] [phone] Orthopaedic Surgery 06/15/24 Rolanda Tirado House DecoratorSecurity Auditor 06/25/23 TREASURE [facility] 04/26/24 documented as of this encounter
--- OUTSIDE RECORDS SUMMARY | 2025-01-31 16:01 | XMS_ITS | Encounter Summary ---
Author Organization [employer] Address [address] [place] [address] 7t [place] [address] Care Team Providers Care Chief Solution Architect Name Role Phone Nicky Thibodeaux MD Primary Care Provider +1- [phone] Wu Manzo MD Unavailable Feroz Ascencio MD Unavailable [phone] Reason for Visit * Reason Comments Med Refill Encounter Details Date Type Department Care Team (Late st Contact Info) Description 12/11/2022 Refill [facility] MEDICINE [address] [place] [address] [phone] Nicky Thibodeaux MD [address] [place] [address] [phone] Social History Tobacco Use Types Packs/Day Years [...] 03/29/2025 2:15 PM EST Office Visit [facility] MEDICINE [address] [place] [address] [phone] Nicky Thibodeaux MD [address] [place] [address] [phone] 05/15/2025 2:00 PM EST Office Visit [facility] OPTOMETRY [address], [place] [phone] Rafita Shannan, OD 230 [place] [address] documented as of this encounter Visit Diagnoses Not on filedocumented in this encounter Additional Health Concerns Assessment Noted Time PHQ-9 Depression Total Score: 22 023 2:09 PM EDT documented as of this encounter Care Teams Chief Solution Architect Relationship Specialty Start Date End Date Nicky Thibodeaux MD 230 [place] [address] PCP - General Family Medicine 04/20/18 Wu Manzo MD [address] [place] [address] Drive [address] [place] [address] Pain Medicine 03/29/24 Feroz Ascencio MD [address] [place] [address] [phone] Orthopaedic Surgery 06/15/24 Rolanda Tirado Magazine WorkerHigh School Academic Coach 06/25/23 Latia Guardado PA-C [facility] 04/26/24 documented as of this encounter
--- OUTSIDE RECORDS SUMMARY | 2025-01-31 16:01 | XMS_ITS | Encounter Summary ---
Author Organization [employer] Address [address] [facility] [address] 7t [place] [address] Care Team Providers Care Communications Technologist Name Role Phone Nicky Thibodeaux MD Primary Care Provider [phone]- [phone] Wu Manzo MD Unavailable Feroz Ascencio MD Unavailable [phone] Reason for Visit * Reason Onset Date Comments PA 10/12/2023 Encounter Details Date Type Department Care Team (Late st Contact Info) Description 10/12/2023 Telephone [facility] MEDICINE 230 [place] [address] Nicky Thibodeaux MD 230 [place] [address] PA Social History Tobacco Use Types Packs/Day [...] 2:15 PM EST Office Visit [facility] MEDICINE [address] [place] [address] Nicky Thibodeaux MD 230 [place] [address] 05/15/2025 2:00 PM EST Office Visit [facility] OPTOMETRY 267 [place] [address] Rafita, Shannan, OD 230 [place] [address] documented as of this encounter Visit Diagnoses Not on filedocumented in this encounter Additional Health Concerns Assessment Noted Time PHQ-9 Depression Total Score: 22 023 2:09 PM EDT documented as of this encounter Care Teams Communications Technologist Relationship Specialty Start Date End Date Nicky Thibodeaux MD 230 [place] [address] PCP - General Family Medicine 04/20/18 Wu Manzo MD [address] [facility] [address] [place] [phone] Pain Medicine 03/29/24 Feroz Ascencio MD [address] [place] [phone] Orthopaedic Surgery 06/15/24 Rolanda Tirado Industrial Truck OperatorSupervisor Customer Services 06/25/23 TREASURE [facility] 04/26/24 documented as of this encounter
--- OUTSIDE RECORDS SUMMARY | 2025-01-31 16:01 | XMS_ITS | Encounter Summary ---
Author Organization [employer] Address [address] [facility] 7t [place] [address] Care Team Providers Care Flatwork Tier Name Role Phone Morelia, Nicky CASTAÑEDA Primary Care Provider +1- [phone] Wu Manzo MD Unavailable Feroz Ascencio MD Unavailable [phone] Reason for Visit * Reason Onset Date Comments Medication Question 12/11/2022 Encounter Details Date Type Department Care Team (Late st Contact Info) Description 12/11/2022 Telephone [facility] MEDICINE 230 [place] [address] Chelsi Canseco ANP 230 [place] [address] Medication Question Social History Tobacco Use Types [...] encounter Miscellaneous Notes * Telephone Encounter - Ngai Galloway - 12/24/2022 3:21 PM EDT Tc from pt requesting Nicotine patches , states discussed with PCP in last visit. documented in this encounter Plan of Treatment Upcoming Encounters Date Type Department Care Team (Late st Contact Info) Description 03/29/2025 2:15 PM EST Office Visit [facility] MEDICINE [address] [place] [address] Nicky Thibodeaux MD 230 [place] [address] 05/15/2025 2:00 PM EST Office Visit [facility] OPTOMETRY [address] [place] [address] Rafita, Shannan, OD 230 [place] [address] documented as of this encounter Visit Diagnoses Diagnosis Essential (primary) hypertension Unspecified essential hypertension documented in this encounter Additional Health Concerns Assessment Noted Time PHQ-9 Depression Total Score: 22 023 2:09 PM EDT documented as of this encounter Care Teams Flatwork Tier Relationship Specialty Start Date End Date Nicky Thibodeaux MD 230 [place] [address] PCP - General Family Medicine 04/20/18 Wu Manzo MD [address] [place] [address] Drive [address] [place] [address] Pain Medicine 03/29/24 Feroz Ascencio MD [address] [place] [address] [phone] Orthopaedic Surgery 06/15/24 Rolanda Tirado Welding EstimatorCalibration Tester 06/25/23 Latia Guardado PA-C [facility] 04/26/24 documented as of this encounter
--- OUTSIDE RECORDS SUMMARY | 2025-01-31 16:01 | XMS_ITS | Encounter Summary ---
Author Organization [employer] Address [address] [place] [address] 7t [place] [address] Care Team Providers Care Rn Endocrinology Name Role Phone Nicky Thibodeaux MD Primary Care Provider +1- [phone] Wu Manzo MD Unavailable Feroz Ascencio MD Unavailable [phone] Encounter Details Date Type Department Care Team (Late st Contact Info) Description 05/05/2022 Abstract [facility] MEDICINE [address] [place] [address] Nicky Thibodeaux MD [address] [place] [address] [phone] Social History Tobacco Use Types Packs/Day Years [...] Office Visit [facility] MEDICINE [address] [place] [address] [phone] Nicky Thibodeaux MD [address] [place] [address] [phone] 05/15/2025 2:00 PM EST Office Visit [facility] OPTOMETRY [address] [place] [address] [phone] Shannan Eller, OD 230 [place] [address] documented as of this encounter Procedures Procedure Name Priority Date/Time Associated Diagnosis Comments COLPOSCOPY Routine 09/11/2021 12:00 AM EDT PAP SMEAR Routine 08/02/2021 12:00 AM EDT MAMMOGRAPHY Routine 10/29/2020 COLONOSCOPY Routine 12/11/2015 documented in this encounter Results * Colposcopy (09/11/2021 12:00 AM EDT) Historical Provider IN CLINIC/BEDSIDE ORDERAB LES Final Result Performing Organization Address [facility]/ZIP Co de Phone Number [facility] [address] [place] [phone] * Pap Smear (08/02/2021 12:00 AM EDT) Swab Nicky Thibodeaux MD LAB CYTOLOGY ORDERABLES Fi nal Result Performing Organization Address [facility]/ZIP Co de Phone Number [facility] [address] [place] [phone] [phone] * Mammography (10/29/2020) Mammogram BIRADS 2 Anatomical Region Laterality Modality Other Historical Provider HEALTH MAINTENANCE Final Result * Colonoscopy (12/11/2015) Colonoscopy normal with Dr. Delgado Historical Provider HEALTH MAINTENANCE Final Result documented in this encounter Visit Diagnoses Not on filedocumented in this encounter Care Teams Rn Endocrinology Relationship Specialty Start Date End Date Nicky Thibodeaux MD 230 [place] [address] PCP - General Family Medicine 04/20/[address] [place] [address] Pain Medicine 03/29/24 Feroz Ascencio MD [address] [place] [phone] Orthopaedic Surgery 06/15/24 Rolanda Tirado Furnace PuncherSheet Rock Layer 06/25/23 TREASURE [facility] 04/26/24 documented as of this encounter
--- OUTSIDE RECORDS SUMMARY | 2025-01-31 16:01 | XMS_ITS | Encounter Summary ---
Author Organization [employer] Address 75 [facility] 7t [place] [address] Care Team Providers Care Water Project Manager Name Role Phone Nicky Thibodeaux MD Primary Care Provider +1- [phone] Wu Manzo MD Unavailable Feroz Ascencio MD Unavailable Encounter Details Date Type Department Care Team (Late Contact Info) Description 08/12/2022 Orders Only [facility] MEDICINE [address] [place] [address] Nicky Thibodeaux MD [address] [place] [address] Social History Tobacco Use Types Packs/Day Years [...] Description 03/29/2025 2:15 PM EST Office Visit [facility] MEDICINE 230 [place] [address] Nicky Thibodeaux MD 230 [place] [address] 05/15/2025 2:00 PM EST Office Visit [facility] OPTOMETRY [address] [place] [address] Rafita, Shannan, OD 230 [place] [address] documented as of this encounter Visit Diagnoses Not on filedocumented in this encounter Additional Health Concerns Assessment Noted Time PHQ-9 Depression Total Score: 22 023 2:09 PM EDT documented as of this encounter Care Teams Water Project Manager Relationship Specialty Start Date End Date Nicky Thibodeaux MD 230 [place] [address] PCP - General Family Medicine 04/20/18 Wu Manzo MD [address] [place] [address] [address] [place] [address] Pain Medicine 03/29/24 Feroz Ascencio MD [address] [place] [phone] Orthopaedic Surgery 06/15/24 Rolanda Tirado Accounting ConsultantAutomatic Pilot Mechanic 06/25/23 Latia Guardado PA-C [facility] 04/26/24 documented as of this encounter
--- OUTSIDE RECORDS SUMMARY | 2025-01-31 16:01 | XMS_ITS | Encounter Summary ---
Author Organization [employer] Address 75 [facility] 7t [place] [address] Care Team Providers Care Rig Superintendent Name Role Phone Nicky Thibodeaux MD Primary Care Provider [phone]- [phone] Wu Manzo MD Unavailable Feroz Ascencio MD Unavailable [phone] Reason for Visit * Reason Comments Med Refill Encounter Details Date Type Department Care Team ([facility] Contact Info) Description 08/26/2022 Refill [facility] PEDS [address] [place] [address] Nicky Thibodeaux MD 230 [place] [address] Pain Social History Tobacco Use Types Packs/Day [...] Upcoming Encounters Date Type Department Care Team ([facility] Contact Info) Description 03/29/2025 2:15 PM EST Office Visit [facility] MEDICINE 230 [place] [address] Nicky Thibodeaux MD 230 [place] [address] 05/15/2025 2:00 PM EST Office Visit [facility] OPTOMETRY [address] [place] [address] Rafita, Shannan, OD 230 [place] [address] documented as of this encounter Visit Diagnoses Diagnosis Pain Generalized pain documented in this encounter Additional Health Concerns Assessment Noted Time PHQ-9 Depression Total Score: 22 023 2:09 PM EDT documented as of this encounter Care Teams Rig Superintendent Relationship Specialty Start Date End Date Nicky Thibodeaux MD 230 [place] [address] PCP - General Family Medicine 04/20/18 Wu Manzo MD [address] [place] [address] Pain Medicine 03/29/24 Feroz Ascencio MD [address] [place] [phone] Orthopaedic Surgery 06/15/24 Rolanda Tirado Branch Operation Evaluation ManagerEmbossograph Operator 06/25/23 TREASURE [facility] 04/26/24 documented as of this encounter
--- OUTSIDE RECORDS SUMMARY | 2025-01-31 16:01 | XMS_ITS | Encounter Summary ---
Author Organization [employer] Address 75 [facility] 7t [place] [address] Care Team Providers Care Filter Press Tender Name Role Phone Nicky Thibodeaux MD Primary Care Provider +1- [phone] Wu Manzo MD Unavailable Feroz Ascencio MD Unavailable Reason for Visit * Reason Comments Med Refill Encounter Details Date Type Department Care Team (Late st Contact Info) Description 05/26/2024 Refill [facility] MEDICINE [address] [place] [address] Nicky Thibodeaux MD 230 [place] [address] Pain Social History Tobacco Use Types Packs/Day [...] Description 03/29/2025 2:15 PM EST Office Visit [facility] MEDICINE [address] [place] [address] Nicky Thibodeaux MD 230 [place] [address] 05/15/2025 2:00 PM EST Office Visit [facility] OPTOMETRY [address] [place] [address] Rafita, Shannan, OD 230 [place] [address] documented as of this encounter Visit Diagnoses Diagnosis Pain Generalized pain documented in this encounter Additional Health Concerns Assessment Noted Time PHQ-9 Depression Total Score: 14 024 10:51 AM EST documented as of this encounter Care Teams Filter Press Tender Relationship Specialty Start Date End Date Nicky Thibodeaux MD [address] [place] [address] PCP - General Family Medicine 04/20/18 Wu Manzo MD [address] [place] [address] Pain Medicine 03/29/24 Feroz Ascencio MD [address] [place] [phone] Orthopaedic Surgery 06/15/24 Rolanda Tirado Warehouse ReceiverMachine Coil Assembler 06/25/23 Latia Guardado PA-C [facility] 04/26/24 documented as of this encounter
== END 2025-01-31 15:07 | disposition home or self-care (01) ==
LOC: HO.HNS 13:11
PROVIDERS: Visit Provider Physician Assistant
DX: M25.512 Pain in left shoulder (principal)
CPT/HCPCS: 99213

== ENCOUNTER 2025-01-31 13:11 | Outpatient (REF) | payer MEDICAID, SELFPAY ==
--- NOTE | ~2025-01-31 | XR_ITS ---
EXAMINATION: XR SHOULDER, LEFT CLINICAL INFORMATION: M25.512 - Pain in left shoulder COMPARISON: None available. TECHNIQUE: Two views of the left shoulder. FINDINGS: There is no AC joint separation or shoulder dislocation. No fractures identified. Degenerative cystic changes present in the lower portion of the glenoid. There is mild degenerative irregularity of distal clavicle. XR/XR shoulder LT min 2V IMPRESSION: Mild degenerative changes. Electronically signed by: Gilbert Styles MD 01/31/2025 02:53 PM EDT
--- OUTSIDE RECORDS SUMMARY | 2025-01-31 16:59 | XMS_ITS | Clinical Summary ---
Author Organization [facility] Address [address] [place] [phone] Care Team Providers Care Client Renewal Specialist Name Role Phone Nicky Thibodeaux MD Primary Care Provider +1- [phone] Social History Tobacco Use Types Packs/Day Years [...] age to complete this topic Care Teams Client Renewal Specialist Relationship Specialty Start Date End Date Nicky Thibodeaux MD [address] [place] [phone] PCP - General Internal Medicine 12/21/13
== END 2025-01-31 13:12 | disposition home or self-care (01) ==
LOC: HO.HOSX 13:11
PROVIDERS: Visit Provider Physician Assistant
DX: M25.512 Pain in left shoulder (principal)
CPT/HCPCS: 73030; 99212

== ENCOUNTER → 2025-01-31 14:14 | Outpatient (BNV) | payer MEDICAID, SELFPAY | PROVIDERS: Visit Provider Radiology Diagnostic Radiology | DX: M19.012 Primary osteoarthritis, left shoulder (principal) | CPT/HCPCS: 73030 ==

== ENCOUNTER 2025-02-22 13:55 | Outpatient (AMB) | payer MEDICAID, SELFPAY ==
--- NOTE | 2025-02-22 13:57 | A.OFFVIS_ITS ---
Vital Signs 02/22/25 13:59 Height 5 ft 6 in Weight 178 lb BMI 28.7 BP 161/85 H Blood Pressure Location Lt brachial Position Sitting Respiration 16 Pulse 87 Pulse Source Pulse Oximeter Pulse Oximetry (%) 98 Oxygen Delivery Method Room Air Intake Visit Reasons: S/P Bilateral Therapeutic SIJ Injections Senior Painter Required: No Allergies aspirin (ASPIRIN) Allergy (Mild, Verified 02/22/25 14:01) GI UPSET ibuprofen (IBUPROFEN) Allergy (Mild, Verified 02/22/25 14:01) GI UPSET Medication List - Last Reconciled 02/22/25 by Juana Mahan LPN acetaminophen 650 mg (2 x 325 mg) PO Q6H PRN 30 days albuterol sulfate 90 mcg/actuation (ProAir HFA) 2 puffs inhalation Q6H PRN alprazolam (Xanax) 0.5 mg PO QID atorvastatin 40 mg PO BEDTIME cholecalciferol (vitamin D3) (Vitamin D3) 1 cap PO DAILY cyclobenzaprine 10 mg PO PRN diclofenac sodium 75 mg PO BID PRN fluticasone propionate 220 mcg/actuation (Flovent HFA) 1 puff inhalation BID gabapentin 600 mg PO TID lamotrigine 200 mg PO BEDTIME lidocaine 5% 1 patch topical DAILY PRN lidocaine-prilocaine 2.5-2.5 % topical lisinopril 10 mg PO BEDTIME omeprazole 1 cap PO DAILY@0630 oxcarbazepine 600 mg PO BEDTIME quetiapine 50 mg PO BEDTIME sumatriptan succinate 50 mg PO DAILY PRN tirzepatide (weight loss) (Zepbound) 7.5 mg subcut QWEEK zolpidem 1 tab PO BEDTIME HPI Comments Details: Loree is back in my office after therapeutic sacroiliac joint injection. Unfortunately unlike the diagnostic bilateral sacroiliac joint injection the therapeutic injection with steroids resulted in pain aggravation instead of the pain relief. This happens sometimes because of the sacroiliac joint synovial lining affected by the administration of the steroids. I offered the patient to repeat diagnostic sacroiliac joint injection and with positive results schedule her for bilateral right 1st and left 2nd sacroiliac joint fusion. I do not offer her sacroiliac joint innervation stimulation because the patient has spi nal cord stimulator and I am not sure how this to devices will work together. She is scheduled for the procedure with Dr. Prabhakar on her neck. The procedure will be on 03/22/2025. I will see her on 03/29/2025 and schedule her for the appointment for diagnostic bilateral SI joint injection.. Prior: the results of diagnostic bilateral sacroiliac joint injection. She reported pain 9.5/10 before the injection. She also reported 0 pain immediately after the procedure 0 pain 1 hour after procedure and 3/10 pain for the 2nd, 3rd and 4th our after the procedure this is 100% improvement of the pain. 5 hours after the procedure her pain was 4/10 so still 70% improvement. 6 hours after the procedure her pain became 5/10. The pain reduction remain at this low level about 50% improvement for 10 days. She also reported improved mobility during this time and better activities of daily living. I offered the patient to perform therapeutic bilateral sacroiliac joint injection with steroids. Prior:multiple pain generators she reports consistent pain in bilateral shoulder posterior neck bilateral hips bilateral perm paramedian paraspinal areas pain in bilateral groins, pain with standing, pain with sitting down, she reports laying down her pain slightly better prolonged sitting and walking aggravate her pain. . She is using walker for ambulation. She had a surgery surgery with Dr. Sang hutchins to help her pain. In the past she had bilateral total hip replacement to help her pain in the hip however she admits that pain is as painful as it was before hip replacement. She had multiple images available including x-ray of the lumbar spine on which L5-S1 fusion is demonstrated without significant pathological changes and with proper hardware position. She also had x-ray of the pelvis which demonstrated appropriate image of the pelvis with bilateral total hip replaced. She had injections long time ago in [facility] as well as with [facility]. In fact she is scheduled for some sort of the injection with [facility] again. This injection will be addressing pain in her neck. The nature of the injection is unknown to me. She is being prescribed by [facility] hydrocodone/acetaminophen 5/325. She is also prescribed cyclobenzaprine to control her pain and help her to sleep at night, she tried NSAIDs with minimal effect including diclofenac sodium. Her primary care physician recommended her to come to this office with the request of spinal cord stimulation. Patient is very leery about spinal cord stimulator and yet she is willing to discuss it with me. Her past medical history significant for headaches mini stroke 4 year ago history of fatigue dizziness and fainting history of anxiety bipolar depression COPD shortness of breath and osteoarthritis. Her past surgical history is significant for to bilateral hip replacements, as well as transforaminal fusion by Dr. Prabhakar. She smokes cigarettes 1 pack per day for 14 years she denies drinking alcohol drinks coffee but not soda and she denies recreational drugs. [facility] Medical History Poor dentition Neck pain Low back pain Anxiety and depression History of panic attacks Chronic headaches Uses roller walker Nicotine dependence, cigarettes, uncomplicated (~1978) Hyperlipidemia History of TIA (transient ischemic attack) (~2019) Personal history of nicotine dependence (~1978) COPD (chronic obstructive pulmonary disease) Osteoarthritis of left hip Hypertension Surgical History History of appendectomy (~02/13/02) Status post total hip replacement, right (~04/26/13) Social History Household Members: None Housing: Apartment Are you a primary pharmacy customer care specialist to a significant other at home: No Do you presently have visiting nurse or other home services: No Comment: patient refused bed alarm Patient Tobacco Use Status: Current everyday Tobacco user Tobacco use type: Cigarette Cigarette Packs Per Day: 1 Cigarettes Per Day: 20.0 Years Smoked: 42 Second Hand Smoke Exposure: No Current occupational status: unemployed Current occupation: Right Handed Female Reproductive History Menstrual Age of Menarche: 13 Review of Systems Const All systems reviewed & are unremarkable except as noted in HPI and below ENT Reports Normal hearing present Neuro Reports Normal hearing present, Denies Abnormal speech present, Denies confusion and Denies Sensory deficit (Neuro) Psych Denies confusion Physical Exam Vital Signs: Last Vital Signs Pulse 87 02/22/25 13:59 Resp 16 02/22/25 13:59 BP 161/85 H 02/22/25 13:59 Pulse Ox 98 02/22/25 13:59 Oxygen Delivery Method Room Air 02/22/25 13:59 BMI result Body Mass Index 28.7 Const General: no acute distress; No confusion Nutritional Appearance: obese morbidly obese Orientation/consciousness: patient oriented x3 and No confusion Eyes General: appearance normal, both eyes and all related structures Pupils: Equal, round and reactive pupils present EOM: EOMs intact bilaterally Neck Neck: Yes full ROM Chest Chest palpation & inspection: normal inspection of the chest Resp Effort & Inspection: normal respiratory effort, able to speak in complete sentences, normal respiratory pattern, no audible wheezes and no cough Cardio Jugular venous distension: no JVD GI Inspection: Yes normal to inspection Back/Spine/Pelvis Other: Able to stand on bilateral tiptoes in bilateral heels without significant difficulty. Unable to flex herself forward or backwards because of severe pain. Attempt to perform Tiago test is demonstrating severe discomfort on lower back bilaterally. Pelvic distraction and pelvic compression tests causing mild discomfort in projection of the sacroiliac joints as well. Thigh thrust test and Stinchfield tests are also positive bilaterally. Valsalva maneuver is negative for pain increase. Fourteen finger test is positive bilaterally. Neuro General: patient oriented x3, gait normal and No confusion Cranial nerves: Yes CN's II-XII intact bilaterally, Yes Equal, round and reactive pupils present, Yes Normal hearing present and Yes Ability to bilaterally elevate shoulders present Speech: No Abnormal speech present Gait exam (Neuro): Normal gait present Motor exam (neuro): 5/5 motor strength present throughout Sensory Exam: No Sensory deficit (Neuro) Extrem General: No pedal edema Psych Speech and movement: Normal speech and movement present Affect: normal affect Attitude: cooperative Thought process: Normal thought process present Thought content: Normal thought content present Insight: Good insight present (Psych) Judgement: Good judgement present (Psych) Assessment & Plan Assessment & Plan (1) Sacroiliac joint dysfunction of both sides: Code(s): M53.3 - Sacrococcygeal disorders, not elsewhere classified Category: Medical (2) Sacroiliitis: Code(s): M46.1 - Sacroiliitis, not elsewhere classified Category: Medical (3) Postlaminectomy syndrome, lumbar: Code(s): M96.1 - Postlaminectomy syndrome, not elsewhere classified Category: Medical (4) Chronic pain syndrome: Code(s): G89.4 - Chronic pain syndrome Category: Medical Plan Loree is very pleasant 59 years old suffering from postlaminectomy syndrome. Dr. Prabhakar operated on this patient. Her pain remained at very high levels. We tried SCS and I DDD modalities on this patient. She has a all OUD and therefore we tried only non opioid medications. Last time she came for diagnostic bilateral SI joint injection and this resulted in very impressive pain reduction. However unfortunately after therapeutic sacroiliac joint injection her pain got only aggravated. With spinal cord stimulator in place I am not sure we can perform peripheral nerve stimulation of sacroiliac joint innervation. I offered the patient the sacroiliac joint fusion to help her pain. She agreed to go for the procedure. However she is facing a neck surgery with Dr. Myrick on 03/22/2025. I will see her on 03/29/2025 and we will discuss situation further. Coding Level of Care Code Est Pt Level 3 (47893) Diagnoses Sacroiliac joint dysfunction of both sides M53.3 Sacroiliitis M46.1 Postlaminectomy syndrome, lumbar M96.1 Chronic pain syndrome G89.4
[2025-02-22 13:59] VITALS: BP 161/85; PULSE 87; RESP 16; O2SAT 98; BMI 28.7
--- OUTSIDE RECORDS SUMMARY | 2025-02-22 17:06 | XMS_ITS | Encounter Summary ---
Author Organization [employer] Address [address] [facility] 7t [place] [address] Care Team Providers Care Oriental Rug Repairer Name Role Phone Nicky Thibodeaux MD Primary Care Provider [phone] Wu Mnazo MD Unavailable Feroz Ascencio MD Unavailable [phone] Reason for Visit * Reason Comments Med Refill Encounter Details Date Type Department Care Team (Late st Contact Info) Description 04/09/2023 Refill [facility] MEDICINE [address] [place] [address] Nicky Thibodeaux MD [address] [place] [address] Pain Social History Tobacco Use Types Packs/Day [...] 2:15 PM EST Office Visit [facility] MEDICINE [address] [place] [address] Nicky Thibodeaux MD [address] [place] [address] 05/15/2025 2:00 PM EST Office Visit [facility] OPTOMETRY [address] [place] [address] Rafita, Shannan, OD 230 [place] [address] documented as of this encounter Visit Diagnoses Diagnosis Pain Generalized pain documented in this encounter Additional Health Concerns Assessment Noted Time PHQ-9 Depression Total Score: 22 023 2:09 PM EDT documented as of this encounter Care Teams Oriental Rug Repairer Relationship Specialty Start Date End Date Nicky Thibodeaux MD [address] [place] [address] PCP - General Family Medicine 04/20/18 Wu Manzo MD [address] [place] [address] Pain Medicine 03/29/24 Feroz Ascencio MD [address] [place] [phone] Orthopaedic Surgery 06/15/24 Rolanda Tirado Wool Hat Sanding Machine OperatorOrder Control Clerk Blood Bank 06/25/23 TREASURE [facility] 04/26/24 documented as of this encounter
--- OUTSIDE RECORDS SUMMARY | 2025-02-22 17:06 | XMS_ITS | Encounter Summary ---
Author Organization [employer] Address [address] 7t [place] [address] Care Team Providers Care Passenger Conductor Name Role Phone Nicky Thibodeaux MD Primary Care Provider [phone] Wu Manzo MD Unavailable Feroz Ascencio MD Unavailable [phone] Encounter Details Date Type Department Care Team (Late st Contact Info) Description 03/11/2023 Abstract [facility] MEDICINE [address] [place], [place] [phone] Thuy Valenzuela Social History Tobacco Use Types [...] 03/29/2025 2:15 PM EST Office Visit [facility] MEDICINE [address] [place] [address] Nicky Thibodeaux MD [address] [place] [address] 05/15/2025 2:00 PM EST Office Visit [facility] OPTOMETRY [address] [place] [address] Rafita, Shannan, OD [address] [place] [address] documented as of this encounter Visit Diagnoses Not on filedocumented in this encounter Additional Health Concerns Assessment Noted Time PHQ-9 Depression Total Score: 22 023 2:09 PM EDT documented as of this encounter Care Teams Passenger Conductor Relationship Specialty Start Date End Date Nicky Thibodeaux MD [address] [place] [address] PCP - General Family Medicine 04/20/18 Wu Manzo MD [address] [place] [address] Pain Medicine 03/29/24 Feroz Ascencio MD [address] [place] [phone] Orthopaedic Surgery 06/15/24 Rolanda Tirado Geothermal Powerplant MechanicFuneral Prearrangement Counselor 06/25/23 Latia Guardado PA-C [facility] 04/26/24 documented as of this encounter
--- OUTSIDE RECORDS SUMMARY | 2025-02-22 17:07 | XMS_ITS | Encounter Summary ---
Author Organization [employer] Address [address] 7t [place] [address] Care Team Providers Care Emergency Veterinary Assistant Name Role Phone Nicky Thibodeaux MD Primary Care Provider [phone] Wu Manzo MD Unavailable eFroz Ascencio MD Unavailable Reason for Visit * Reason Onset Date Comments PT-1 12/08/2023 Encounter Details Date Type Department Care Team (Late st Contact Info) Description 12/08/2023 Telephone [facility] MEDICINE [address] [place] [address] Nicky Thibodeaux MD [address] [place] [address] PT-1 Social History Tobacco Use Types Packs/Day [...] Y/N: Yes Provider name or facility name: [facility] pain management Facility Address: [address] [place] [address] Escort needed: Y/N: No Do you have a wheelchair: Y/N: No If yes- Manual or electric: N/A (uses walker) Visits: twice a month documented in this encounter Plan of Treatment Upcoming Encounters Date Type Department Care Team (Late st Contact Info) Description 03/29/2025 2:15 PM EST Office Visit [facility] MEDICINE [address] [place] [address] Nicky Thibodeaux MD [address] [place] [address] 05/15/2025 2:00 PM EST Office Visit [facility] OPTOMETRY [address] [place] [address] Shannan Eller, GREG [address] [place] [address] documented as of this encounter Visit Diagnoses Not on filedocumented in this encounter Additional Health Concerns Assessment Noted Time PHQ-9 Depression Total Score: 22 023 2:09 PM EDT documented as of this encounter Care Teams Emergency Veterinary Assistant Relationship Specialty Start Date End Date Nicky Thibodeaux MD [address] [place] [address] PCP - General Family Medicine 04/20/18 Wu Manzo MD [address] [place] [address] Pain Medicine 03/29/24 Feroz Ascencio MD [address] [place] [phone] Orthopaedic Surgery 06/15/24 Rolanda Tirado Aircraft TechnicianCable Placer 06/25/23 TREASURE [facility] 04/26/24 documented as of this encounter
--- OUTSIDE RECORDS SUMMARY | 2025-02-22 17:07 | XMS_ITS | Encounter Summary ---
Author Organization [employer] Address [address] [place] [address] 7t [place] [address] Care Team Providers Care Automotive Machinist Apprentice Name Role Phone Nicky Thibodeaux MD Primary Care Provider [phone] Wu Manzo MD Unavailable Feroz Ascencio MD Unavailable [phone] Reason for Visit * Reason Comments Med Refill Encounter Details Date Type Department Care Team (Late Contact Info) Description 2022 Refill [facility] [address] [place], [place] [phone] Krystin Frederick FNP Chronic migraine without aura [...] 2:15 PM EST Office Visit [facility] MEDICINE [address] [place], [place] [phone] Nicky Thibodeaux MD [address] [place], [place] [phone] 05/15/2025 2:00 PM EST Office Visit [facility] OPTOMETRY [address] [place], [place] [phone] Shannan Eller, OD [address] [place] [address] documented as of this encounter Visit Diagnoses Diagnosis Chronic migraine without aura without status migrainosus, not intractable documented in this encounter Care Teams Automotive Machinist Apprentice Relationship Specialty Start Date End Date Nicky Thibodeaux MD [address] [place] [address] PCP - General Family Medicine 04/20/18 Wu Manzo MD [address] [place] [address] [address] [place] [address] Pain Medicine 03/29/24 Feroz Ascencio MD [address] [place] [phone] Orthopaedic Surgery 06/15/24 Rolanda Tirado Casework SpecialistBelt Loop Machine Operator 06/25/23 Latia Guardado PA-C [facility] 04/26/24 documented as of this encounter
--- OUTSIDE RECORDS SUMMARY | 2025-02-22 17:07 | XMS_ITS | Encounter Summary ---
Author Organization [employer] Address [address] [place] [address] 7t [place] [address] Care Team Providers Care Dolphin Trainer Name Role Phone Morelia, Nicky CASTAÑEDA Primary Care Provider [phone] Wu Manzo MD Unavailable Feroz Ascencio MD Unavailable [phone] Reason for Visit * Reason Comments Med Refill Encounter Details Date Type Department Care Team (Late st Contact Info) Description 09/30/2022 Refill [facility] MEDICINE [address] [place] [address] Deborah Stratton MD [address] [place] [address] Chronic migraine without aura without status migrainosus, [...] 03/29/2025 2:15 PM EST Office Visit [facility] MEDICINE [address] [place] [address] Nicky Thibodeaux MD [address] [place] [address] 05/15/2025 2:00 PM EST Office Visit [facility] OPTOMETRY [address] [place] [address] Rafita, Shannan, OD [address] [place] [address] documented as of this encounter Visit Diagnoses Diagnosis Chronic migraine without aura without status migrainosus, not intractable documented in this encounter Additional Health Concerns Assessment Noted Time PHQ-9 Depression Total Score: 22 023 2:09 PM EDT documented as of this encounter Care Teams Dolphin Trainer Relationship Specialty Start Date End Date Nicky Thibodeaux MD [address] [place] [address] PCP - General Family Medicine 04/20/18 Wu Manzo MD [address] [place] [address] [address] [place] [address] Pain Medicine 03/29/24 Feroz Ascencio MD [address] [place] [phone] Orthopaedic Surgery 06/15/24 Rolanda Tirado Animal TechRn Hospice 06/25/23 TREASURE [facility] 04/26/24 documented as of this encounter
--- OUTSIDE RECORDS SUMMARY | 2025-02-22 17:07 | XMS_ITS | Encounter Summary ---
Author Organization [employer] Address 75 [facility] 7t [place] [address] Care Team Providers Care Cable Weaver Name Role Phone Nicky Thibodeaux MD Primary Care Provider [phone]- [phone] Wu Manzo MD Unavailable Feroz Ascencio MD Unavailable [phone] Encounter Details Date Type Department Care Team (Late Contact Info) Description 08/12/2022 Orders Only [facility] [address] [place] [address] Nicky Thibodeaux MD [address] [place] [address] Social History Tobacco Use Types Packs/Day Years [...] Description 03/29/2025 2:15 PM EST Office Visit [facility] [address] [place] [address] Nicky Thibodeaux MD [address] [place] [address] 05/15/2025 2:00 PM EST Office Visit [facility] [address] [place] [address] Rafita, Shannan, OD 230 [place] [address] documented as of this encounter Visit Diagnoses Not on filedocumented in this encounter Additional Health Concerns Assessment Noted Time PHQ-9 Depression Total Score: 22 023 2:09 PM EDT documented as of this encounter Care Teams Cable Weaver Relationship Specialty Start Date End Date Nicky Thibodeaux MD 230 [place] [address] PCP - General Family Medicine 04/20/18 Wu Manzo MD [address] [place] [address] Drive [address] [place] [address] Pain Medicine 03/29/24 Feroz Ascencio MD [address] [place] [phone] Orthopaedic Surgery 06/15/24 Rolanda Tirado Space Operations OfficerRural Route Carrier 06/25/23 Latia Guardado PA-C [facility] 04/26/24 documented as of this encounter
--- OUTSIDE RECORDS SUMMARY | 2025-02-22 17:07 | XMS_ITS | Encounter Summary ---
Author Organization [employer] Address 75 [facility] 7t [place] [address] Care Team Providers Care Fundraising Manager Name Role Phone Morelia, Nicky CASTAÑEDA Primary Care Provider +1- [phone] Wu Manzo MD Unavailable Feroz Ascencio MD Unavailable [phone] Reason for Visit * Reason Comments Med Refill Encounter Details Date Type Department Care Team (Late st Contact Info) Description 04/29/2023 Refill [facility] [address] [place] [address] Chelsi Canseco ANP [address] [place] [address] Social History Tobacco Use Types Packs/Day Years [...] Office Visit [facility] [address] [place] [address] Nicky Thibodeaux MD [address] [place] [address] 05/15/2025 2:00 PM EST Office Visit [facility] [address] [place] [address] Rafita, Shannan, OD 230 [place] [address] documented as of this encounter Visit Diagnoses Not on filedocumented in this encounter Additional Health Concerns Assessment Noted Time PHQ-9 Depression Total Score: 22 023 2:09 PM EDT documented as of this encounter Care Teams Fundraising Manager Relationship Specialty Start Date End Date Nicky Thibodeaux MD [address] [place] [address] PCP - General Family Medicine 04/20/18 Wu Manzo MD [address] [place] [address] Pain Medicine 03/29/24 Feroz Ascencio MD [address] [place] [phone] Orthopaedic Surgery 06/15/24 Rolanda Tirado Residential SalesCleaner Assistant 06/25/23 TREASURE [facility] 04/26/24 documented as of this encounter
--- OUTSIDE RECORDS SUMMARY | 2025-02-22 17:07 | XMS_ITS | Encounter Summary ---
Author Organization [employer] Address [address] [facility] [address] 7t [place] [address] Care Team Providers Care Breakdown Person Name Role Phone Nicky Thibodeaux MD Primary Care Provider [phone]- [phone] Wu Manzo MD Unavailable Feroz Ascencio MD Unavailable [phone] Reason for Visit * Reason Onset Date Comments Med Refill 04/29/2023 Encounter Details Date Type Department Care Team (Late st Contact Info) Description 04/29/2023 Telephone [facility] 230 [place] [address] Nicky Thibodeaux MD [address] [place] [address] Med Refill Social History Tobacco Use Types [...] 500 MG tablet To be sent to: [facility]/pharmacy [address] [place] [address] documented in this encounter Plan of Treatment Upcoming Encounters Date Type Department Care Team (Late st Contact Info) Description 03/29/2025 2:15 PM EST Office Visit [facility] [address] [place] [address] Nicky Thibodeaux MD [address] [place] [address] 05/15/2025 2:00 PM EST Office Visit [facility] [address] [place] [address] Shannan Eller, OD 230 [place] [address] documented as of this encounter Visit Diagnoses Not on filedocumented in this encounter Additional Health Concerns Assessment Noted Time PHQ-9 Depression Total Score: 22 023 2:09 PM EDT documented as of this encounter Care Teams Breakdown Person Relationship Specialty Start Date End Date Nicky Thibodeaux MD [address] [place] [address] PCP - General Family Medicine 04/20/18 Wu Manzo MD [address] [place] [address] Drive [address] [place] [address] Pain Medicine 03/29/24 Feroz Ascencio MD [address] [place] [phone] Orthopaedic Surgery 06/15/24 Rolanda Tirado Laborer Vegetable FarmSpine Nurse 06/25/23 Latia Guardado PA-C [facility] 04/26/24 documented as of this encounter
--- OUTSIDE RECORDS SUMMARY | 2025-02-22 17:07 | XMS_ITS | Encounter Summary ---
Author Organization [employer] Address 75 [facility] 7t [place] [address] Care Team Providers Care Belt Line Feeder Name Role Phone Nicky Thibodeaux MD Primary Care Provider [phone]- [phone] Wu Manzo MD Unavailable Feroz Ascencio MD Unavailable [phone] Reason for Visit * Reason Comments Med Refill Encounter Details Date Type Department Care Team (Late st Contact Info) Description 05/19/2023 Refill [facility] [address] [place] [address] Nicky Thibodeaux MD [address] [place], [place] [phone] Asthma, unspecified asthma severity, unspecified whether complicated, [...] 2:15 PM EST Office Visit [facility] [address] [place] [address] Nicky Thibodeaux MD [address] [place] [address] 05/15/2025 2:00 PM EST Office Visit [facility] [address] [place] [address] Rafita, Shannan, OD 230 [place] [address] documented as of this encounter Visit Diagnoses Diagnosis Asthma, unspecified asthma severity, unspecified whether complicated, unspecified whether persistent documented in this encounter Additional Health Concerns Assessment Noted Time PHQ-9 Depression Total Score: 22 023 2:09 PM EDT documented as of this encounter Care Teams Belt Line Feeder Relationship Specialty Start Date End Date Nicky Thibodeaux MD [address] [place] [address] PCP - General Family Medicine 04/20/18 Wu Manzo MD [address] [facility] [address] [place] [address] Pain Medicine 03/29/24 Feroz Ascencio MD [address] [place] [phone] Orthopaedic Surgery 06/15/24 Rolanda Tirado Numerical Control Machine OperatorChipper Operator 06/25/23 TREASURE [facility] 04/26/24 documented as of this encounter
--- OUTSIDE RECORDS SUMMARY | 2025-02-22 17:07 | XMS_ITS | Encounter Summary ---
Author Organization [employer] Address [address] [facility] [address] 7t [place] [address] Care Team Providers Care Film Loader Name Role Phone Nicky Thibodeaux MD Primary Care Provider [phone]- [phone] Wu Manzo MD Unavailable Feroz Ascencio MD Unavailable [phone] Reason for Visit * Reason Onset Date Comments Pre-visit Planning 11/09/2023 Encounter Details Date Type Department Care Team (Late st Contact Info) Description 11/09/2023 Telephone [facility] [address] [place] [address] Nicky Thibodeaux MD 230 [place] [address] Pre-visit Planning Social History Tobacco Use Types [...] EST Office Visit [facility] [address] [place] [address] Nicky Thibodeaux MD [address] [place] [address] 05/15/2025 2:00 PM EST Office Visit [facility] [address] [place] [address] Rafita, Shannan, OD 230 [place] [address] documented as of this encounter Visit Diagnoses Not on filedocumented in this encounter Additional Health Concerns Assessment Noted Time PHQ-9 Depression Total Score: 22 023 2:09 PM EDT documented as of this encounter Care Teams Film Loader Relationship Specialty Start Date End Date Nicky Thibodeaux MD [address] [place] [address] PCP - General Family Medicine 04/20/18 Wu Manzo MD [address] [place] [address] Drive [address] [place] [address] Pain Medicine 03/29/24 Feroz Ascencio MD [address] [place] [phone] Orthopaedic Surgery 06/15/24 Rolanda Tirado Pattern CarrierDigital Sales Assistant 06/25/23 TREASURE [facility] 04/26/24 documented as of this encounter
--- OUTSIDE RECORDS SUMMARY | 2025-02-22 17:07 | XMS_ITS | Encounter Summary ---
Author Organization [employer] Address 75 [facility] 7t [place] [address] Care Team Providers Care Varnishing Machine Operator Name Role Phone Nicky Thibodeaux MD Primary Care Provider [phone]- [phone] Wu Manzo MD Unavailable Feroz Ascencio MD Unavailable [phone] Reason for Visit * Reason Onset Date Comments Durable Medical Equipment 08/07/2022 Encounter Details Date Type Department Care Team (Late st Contact Info) Description 08/07/2022 Telephone [facility] [address] [place] [address] Nicky Thibodeaux MD [address] [place] [address] Durable Medical Equipment Social History Tobacco Use [...] - 08/14/2022 9:23 AM EDT Tc from [facility] requesting status on a form send over for [facility] grab bar. Please contact Renzo at [phone] * Telephone Encounter - Wellington Smith - 08/07/2022 9:57 AM EDT Tc from [facility] with [facility] requesting a status on a form sent over for a [facility] Grab bar. Please contact renzo at [phone] documented in this encounter Plan of Treatment Upcoming Encounters Date Type Department Care Team (Late st Contact Info) Description 03/29/2025 2:15 PM EST Office Visit [facility] [address] [place] [address] Nicky Thibodeaux MD [address] [place] [address] 05/15/2025 2:00 PM EST Office Visit [facility] [address] [place] [address] Rafita, Shannan, OD [address] [place] [address] documented as of this encounter Visit Diagnoses Not on filedocumented in this encounter Additional Health Concerns Assessment Noted Time PHQ-9 Depression Total Score: 22 023 2:09 PM EDT documented as of this encounter Care Teams Varnishing Machine Operator Relationship Specialty Start Date End Date Nicky Thibodeaux MD [address] [place] [address] PCP - General Family Medicine 04/20/18 Wu Manzo MD [address] [facility] [address] [place] [address] Pain Medicine 03/29/24 Feroz Ascencio MD [address] [place] [phone] Orthopaedic Surgery 06/15/24 Rolanda Tirado Biofuels Product ManagerInfo Analyst 06/25/23 TREASURE [facility] 04/26/24 documented as of this encounter
--- OUTSIDE RECORDS SUMMARY | 2025-02-22 17:07 | XMS_ITS | Encounter Summary ---
Author Organization [employer] Address 75 [facility] 7t [place] [address] Care Team Providers Care Advanced Developer Name Role Phone Nicky Thibodeaux MD Primary Care Provider [phone]- [phone] Wu Manzo MD Unavailable Feroz Ascencio MD Unavailable [phone] Encounter Details Date Type Department Care Team (Latest Contact Info) Description 04/05/2021 Abstract [facility] CONVERSIONS Dental, Provider, DDS Social History [...] Office Visit [facility] [address] [place] [address] Nicky Thibodeaux MD [address] [place] [address] 05/15/2025 2:00 PM EST Office Visit [facility] OPTOMETRY [address] [place] [address] Shannan Eller, OD 230 [place] [address] documented as of this encounter Visit Diagnoses Not on filedocumented in this encounter Care Teams Advanced Developer Relationship Specialty Start Date End Date Morelia, MD Nicky [address] [place] [address] PCP - General Family Medicine 04/20/18 Wu Manzo MD [address] [facility] [address] [place] [address] Pain Medicine 03/29/24 Feroz Ascencio MD [address] [place] [phone] Orthopaedic Surgery 06/15/24 Rolanda Tirado Stenotype OperatorSenior Search Marketing Analyst 06/25/23 TREASURE [facility] 04/26/24 documented as of this encounter
--- OUTSIDE RECORDS SUMMARY | 2025-02-22 17:07 | XMS_ITS | Encounter Summary ---
Author Organization [employer] Address 75 [facility] 7t [place] [address] Care Team Providers Care Loss Control Consultant Name Role Phone Nicky Thibodeaux MD Primary Care Provider [phone]- [phone] Wu Manzo MD Unavailable Feroz Ascencio MD Unavailable [phone] Reason for Visit * Reason Onset Date Comments pt1 10/12/2024 Encounter Details Date Type Department Care Team (Late st Contact Info) Description 10/12/[address] [facility] [address] [place] [address] Nicky Thibodeaux MD [address] [place] [address] pt1 Social History Tobacco Use Types Packs/Day [...] EDT CHW [place] Carpio submitted pt1 to [facility] for location below and will take [...] [facility] [address] [place] [address] Nicky Thibodeaux MD [address] [place] [address] 05/15/2025 2:00 PM EST Office Visit [facility] OPTOMETRY [address] [place] [address] Shannan Eller OD 230 [place] [address] documented as of this encounter Visit Diagnoses Not on filedocumented in this encounter Additional Health Concerns Assessment Noted Time PHQ-9 Depression Total Score: 14 024 10:51 AM EST documented as of this encounter Care Teams Loss Control Consultant Relationship Specialty Start Date End Date Nicky Thibodeaux MD [address] [place] [address] PCP - General Family Medicine 04/20/18 Wu Manzo MD [address] [facility] [address] [place] [address] Pain Medicine 03/29/24 Feroz Ascencio MD [address] [place] [phone] Orthopaedic Surgery 06/15/24 Rolanda Tirado Oil Field PumperEmu Farm Worker 06/25/23 Latia Guardado PA-C [facility] 04/26/24 documented as of this encounter
--- OUTSIDE RECORDS SUMMARY | 2025-02-22 17:07 | XMS_ITS | Clinical Summary ---
Author Organization [employer] Address [address] [place] [address] 7[address] [place] [address] Care Team Providers Care Extractor And Wringer Operator Name Role Phone Nicky Thibodeaux MD Primary Care Provider [phone] Wu Manzo MD Unavailable Feroz Ascencio MD Unavailable [phone] Allergies Active Allergy Reactions Criticality Noted Date Comments Aspirin GI intolerance Low 01/03/2013 Ibuprofen GI intolerance Low 12/29/2014 Medications Spiriva HandiHaler 18 MCG inhalation capsuleIndication s:Chronic obstructive pulmonary disease, unspecified COPD type (CMS/HCC) ([facility]) INHALE 1 CAPSULE VIA HANDIHALER ONCE DAILY [...] Do not swallow. 1 each 024 Active baclofen (Lioresal) 5 MG tabletIndications :Chronic low back pain, unspecified back pain laterality, unspecified whether sciatica present TAKE 1 TABLET BY MOUTH 3 TIMES A DAY NEEDED FOR MUSCLE PAIN 024 Active zolpidem (Ambien) 10 MG tabletIndications :Primary insomnia 1 tablet. 021 Active ALPRAZolam (Xanax) 0.5 MG tabletIndications :Anxiety [...] with anxiety 50 mg. Active HYDROcodone-aceta minophen (Haverstraw) 5-325 MG tabletIndications :Chronic low back pain, [...] unspecified whether esophagitis present 1 capsule. Active albuterol (2.5 MG/3ML) 0.083% nebulizer solution INHALE 3ML BY NEBULIZATION ROUTE FOUR TIMES EVERY DAY IF NEEDED 75 mL 3 Active Tirzepatide-Weigh t Management (Zepbound) 7.5 MG/0.5ML [...] WEAR UP TO 12 HOURS 30 patch Active SUMAtriptan (Imitrex) 50 MG tabletIndications :Chronic [...] EVERY DAY 90 capsule 1 025 Active diclofenac (Voltaren) 75 MG EC tabletIndications :Osteoarthritis of hip, unspecified laterality, unspecified osteoarthritis type TAKE 1 TABLET BY MOUTH TWICE A DAY NEEDED 60 tablet 025 Active omeprazole (PriLOSEC) [address] capsuleIndication s:Abdominal pain, unspecified abdominal location TAKE 1 CAPSULE BY MOUTH EVERY DAY BEFORE A MEAL 90 capsule 1 025 Active lisinopril 10 MG tabletIndications :Primary hypertension TAKE 1 TABLET BY MOUTH EVERY DAY 90 tablet 3 025 Active lidocaine-priloca ine (Emla) 2.5-2.5 % creamIndications: Pain APPLY TO AFFECTED AREA TOPICALLY 1-2 TIMES DAILY NEEDED FOR PAIN 30 g 1 025 Active clobetasol (Temovate) 0.05 % creamIndications: Dermatitis APPLY THIN COAT TO AFFECTED AREA TWICE A DAY 60 g 2 025 Active Acetaminophen Extra Strength 500 MG tabletIndications :Pain TAKE 1 TABLET BY MOUTH EVERY 8 HOURS NEEDED 90 tablet 025 Active Ventolin HFA 108 (90 Base) MCG/ACT inhalerIndication s:Asthma, unspecified asthma severity, unspecified whether complicated, unspecified whether persistent TAKE 2 PUFFS BY MOUTH EVERY 4 TO 6 HOURS NEEDED 18 g 1 025 Active clobetasol (Temovate) 0.05 % creamIndications: Dermatitis APPLY THIN COAT TO AFFECTED AREA TWICE A DAY 60 g 2 024 2024 Discontinued lisinopril 10 MG tabletIndications :Primary hypertension TAKE 1 TABLET BY MOUTH EVERY DAY 90 tablet 3 024 2024 Discontinued Ventolin HFA 108 (90 Base) MCG/ACT inhalerIndication s:Asthma, unspecified asthma severity, unspecified whether complicated, unspecified whether persistent INHALE 2 PUFFS BY MOUTH EVERY 4 TO 6 HOURS NEEDED 18 g 1 025 2024 Discontinued omeprazole (PriLOSEC) [address] capsuleIndication s:Abdominal pain, unspecified abdominal location TAKE 1 CAPSULE BY MOUTH EVERY DAY BEFORE A MEAL 90 capsule 1 025 2024 Discontinued lidocaine-priloca ine (Emla) 2.5-2.5 % creamIndications: Pain Apply topically if needed each day for mild pain. APPLY TOPICALLY 1 (ONE) TIME FOR 1 DOSE. APPLY TWICE A DAY NEEDED FOR PAIN 30 g 1 025 2024 Discontinued Acetaminophen Extra Strength 500 [...] due after 03/14/25 -eye care facilitated by [facility] -dental home is [facility] care proxy paperwork completed by to the patient 07/17/23 Assessment & Plan (03/14/2024 11:23 AM EST): -next physical exam due after 03/14/25 -eye care facilitated by [facility] -dental home is [facility] -[facility] care proxy paperwork completed by to the patient 07/17/23 Assessment & Plan (11/19/2023 11:08 AM EDT): -next physical exam due after 12/11/23 -eye care facilitated by [facility] -dental home is [facility] -[facility] care proxy paperwork completed by to the patient 07/17/23 Assessment & Plan (07/17/2023 10:10 AM EDT): -next physical exam due after 12/11/23 -eye care facilitated by [facility] -[facility] completed by the patient [...] the MRI image on the disc from [facility] where she had MRI performed. I also requested her to read brochures about [facility] and [employer]. -note 12/30/24 at [facility] case reviewed with dr taveras, he would offer her ACDF C4-5, C5-6. i will call her and update her. Assessment & Plan (07/17/2023 10:03 AM EDT): Her pain is not controlled. Dillon asked her to reach out to her original prescriber for Vicodin at [facility]. She is 7 weeks post-op sugery and is weaning her percocet's. Dillon explained since she is on Ambien, gabapentin, and benzodiazapine I would not be able to safely prescribe the medications through our program. Assessment & Plan (12/15/2022 9:38 AM EDT): Her pain is not controlled. Dillon asked her to reach out to her original prescriber for Vicodin at [facility]. She is 7 weeks post-op sugery and is weaning her percocet's. Dillon explained since she is on Ambien, gabapentin, and benzodiazapine I would not be able to safely prescribe the medications through our program. Assessment & Plan (09/03/2022 12:12 PM EDT): Her pain is not controlled. Dillon asked her to reach out to her original prescriber for Vicodin at [facility]. She is 7 weeks post-op sugery and is weaning her percocet's. Dillon explained since she is on Ambien, gabapentin, and benzodiazapine I would not be able to safely prescribe the medications through our program. Arthritis 09/02/2022 Cerebrovascular accident (CVA) ([facility]) 023 Overview (11/18/2023): Pt had episode of [...] considered to be 1.7 or 2.4 mg correction. -PA resubmitted 11/19/23 - Advised to Switch [...] considered to be 1.7 or 2.4 mg correction. -PA resubmitted 11/19/23 Assessment & Plan (09/23/2023 [...] considered to be 1.7 or 2.4 mg correction. Chronic low back pain 07/23/2022 Overview (01/25/2025): [...] severe pain. She is getting Vicodin from [facility]. She requests opiate medications from [...] therapy, multiple injections, and awaiting TENs unit. -[facility] prescribing hydrocodone/APA 5/325 to support instrumented activities [...] the MRI image on the disc from [facility] where she had MRI performed. I also [...] severe pain. She is getting Vicodin from [facility]. She requests opiate medications from [...] pain. She sees a therapist and psychiatrist. -[facility] prescribing hydrocodone/APA to support instrumented activities of daily living. Note from 11/26/23 reviewed. -I will discuss with our pain management providers for any recommendations - Referred to follow up with Pain management. Pain pump is being advised 03/14/24 Assessment & Plan (11/19/2023 11:10 AM EDT): -s/p surgery with Dr. Tania Escamilla 06/2022 -Pt continues to report severe pain. She is getting Vicodin from [facility]. She requests opiate medications from [...] 10:06 AM EDT): -s/p surgery with Dr. Taina Escamilla 06/2022 Assessment & Plan (12/15/2022 9:30 [...] placed to Gynecology, Dr. Aaron 07/17/23 -[facility] called 09/23/23 stating pt declined appt [...] placed to Gynecology, Dr. Aaron 07/17/23 -[facility] called 09/23/23 stating pt declined appt [...] placed to Gynecology, Dr. Aaron 07/17/23 -[facility] called 09/23/23 stating pt declined appt [...] left MARISELA 01/29/[address] Neal in [place] -s/p bilateral GT bursa injection under fluoroscopic guidance 06/13/24 with moderate reduction of pain in bilateral lateral hips -seen by ortho at [facility] 07/21/24 Hip [...] Encounters Date Type Department Care Team Description 02/20/2025 Refill [facility] MEDICINE [address] [place] [address] Nicky Thibodeaux MD Pain; Dermatitis; Asthma, unspecified asthma severity, unspecified whether complicated, unspecified whether persistent 02/16/2025 Refill [facility] MEDICINE [address] [place] [address] Nicky Thibodeaux MD Primary hypertension 02/11/2025 Refill [facility] MEDICINE [address] [place] [address] Nicky Thibodeaux MD Abdominal pain, unspecified abdominal location 01/23/2025 Telephone [facility] MEDICINE [address] [place] [address] Nicky Thibodeaux MD March Recalls 01/23/2025 Travel 01/20/2025 Refill [facility] MEDICINE [address] [place] [address] Nicky Thibodeaux MD Pain; Osteoarthritis of hip, unspecified laterality, unspecified osteoarthritis type 12/28/2024 4:00 PM EDT Office Visit [facility] MEDICINE [address] [place] [address] Nicky Thibodeaux MD Class 2 severe obesity due to excess calories with serious comorbidity and body mass index (BMI) of 35.0 to 35.9 in adult ([facility]) (Primary Dx); Dietary counseling; Exercise counseling; Positive depression screening 12/28/2024 Travel 12/27/[address] [address] Nicky Thibodeaux MD chart prep 12/26/2024 Orders Only GENERIC EXTERNAL DATA DEPARTMENT Provider, Generic External Data 12/25/[address] [address] Nicky Thibodeaux MD Vitamin D deficiency 12/23/2024 Refill [facility] MEDICINE [address] [place] [phone] Nicky Thibodeaux MD Chronic migraine without aura without status migrainosus, not intractable; Pain 12/20/2024 Telephone [facility] MEDICINE [address] [place] [phone] Nicky Thibodeaux MD Prior Authorization ( PA: [place]) 12/13/2024 Refill [facility] MEDICINE [address] [place] [phone] Nicky Thibodeaux MD Osteoarthritis of hip, unspecified laterality, unspecified osteoarthritis type; Pain 12/12/2024 Telephone [facility] MEDICINE [address] [place] [phone] Nicky Thibodeaux MD PT1 12/06/[address] [address] Nicky Thibodeaux MD 11/24/[address] [phone] Nicky Thibodeaux MD Pain from Last 3 [...] 2:15 PM EST Office Visit [facility] MEDICINE [address] [place] [address] Nicky Thibodeaux MD [address] [place] [address] 05/15/2025 2:00 PM EST Office Visit [facility] OPTOMETRY [address] [place] [address] Rafita, Shannan, OD [address] [place] [address] Health Maintenance Due Date Last Done Comments [...] 08/02/2021, 08/02/2021 COVID-19 Vaccine ( - season) 2024 Influenza Vaccine (#1) 2024 4, [...] EDT) Sodium 144 135 - 145 mmol/L [facility] Potassium 4.6 3.3 - 5.1 mmol/L [facility] Chloride 111(H) 96 - 108 mmol/L [facility] Carbon Dioxide 23 22 - 29 mmol/L [facility] Anion Gap 15 12 - 20 [facility] Urea Nitrogen (BUN) 15 9 - 16 mg/dL [facility] Creatinine, Serum 0.98 0.5 - 1.4 mg/dL [facility] Estimated Glomerular Filt Rate 58 [facility] Comment:Chronic Kidney Disea se: Estimated GFR < 60 mL/min/[id number] Kidney Disease: Estimated GFR < 15 mL/min/1.73m2 Glucose Fasting 97 60 - 99 mg/dL [facility] Calcium 9.1 8.4 - 10.2 mg/dL [facility] Bilirubin, Total 0.1 0.0 - 1.0 mg/dL [facility] Aspartate Amino Transferase 19 5 - 31 U/L [facility] Alanine Aminotransferase 22 0 - 31 U/L [facility] Total Protein 7.2 6.5 - 8.0 g/dL [facility] Albumin Level 4.2 3.5 - 5.0 g/dL [facility] Alkaline Phosphatase 90 39 - 117 U/L [facility] 12/26/2024 10:0 8 AM EDT 12/26/2024 11:21 AM EDT us Generic External Data Provider LAB BLOOD ORDERAB LES Final Result [facility] [address] [place] [phone] * (ABNORMAL) CBC auto differential (12/26/2024 10:08 AM EDT) White Blood Count 8.3 4.8 - 10.8 X10*3/uL [facility] Red Blood Count 4.05(L) 4.20 - 5.50 X10*6/uL [facility] Hemoglobin 11.4(L) 12.0 - 16.0 g/dl [facility] Hematocrit 35.8(L) 37.0 - 47.0 % [facility] Mean Corpuscular Volume 88.4 80.0 - 98.0 fL [facility] Mean Corpuscular Hemoglobin 28.1 27.0 - 33.0 pg [facility] Mean Corpuscular HGB Conc 31.8 31.0 - 35.0 g/dl [facility] Red Cell Distribution Width 14.3 11.0 - 16.0 % [facility] Platelet Count 281 160 - 400 X10*3/uL [facility] Mean Platelet Volume 10.8 9.4 - 12.3 fL [facility] Neutrophils Percent Auto 67.5 45 - 73 % [facility] Imm Gran Pct Auto 0.2 0.0 - 0.4 % [facility] Lymphocytes Percent Auto 23.6 20 - 40 % [facility] Monocytes Percent Auto 6.9 2 - 11 % [facility] Eosinophils Percent Auto 1.2 0 - 4 % [facility] Basophils Percent Auto 0.6 0 - 2 % [facility] NRBC Pct Auto 0.0 0.0 - 0.2 /100WBC [facility] Neutrophils Absolute Auto 5.6 2.0 - 8.3 x10*3/uL [facility] Imm Gran Abs Auto 0.02 0.00 - 0.03 X10*3/uL [facility] Lymphocytes Absolute Auto 2.0 1.2 - 4.9 X10*3/uL [facility] Monocytes Absolute Auto 0.6 0.1 - 1.2 X10*3/uL [facility] Eosinophils Absolute Auto 0.1 0.0 - 0.4 X10*3/uL [facility] Basophils Absolute Auto 0.1 0.0 - 0.2 X10*3/uL [facility] NRBC Abs Auto 0.000 0.0 - 0.012 X10*3/uL [facility] 12/26/2024 10:0 8 AM EDT 12/26/2024 11:16 AM EDT us Generic External Data Provider LAB BLOOD ORDERAB LES Final Result [facility] [address] [place] [phone] * (ABNORMAL) Lipid Panel, Standard (12/26/2024 10:08 AM EDT) Triglycerides 198(H) <150 mg/dL [facility] Comment:Desirable Triglyceri de: less than 150 mg/dLBorderline High Triglyceride 150-199 mg/dLHigh Triglyceride: 200-499 mg/dLVery High Triglyceride: greater than or equal to 5OO mg/dL Cholesterol 186 <200 mg/dL [facility] Comment:Desirable Cholestero l: less than 200 mg/dLBorderline High Cholesterol: 200-239 mg/dLHigh Cholesterol: greater than 239 mg/dL LDL Cholesterol Calculated 97 <100 mg/dL [facility] Comment:Desirable LDL: less than 100 mg/dLNear Optimal/Above Optimal LDL: 110- 129 mg/dLBorderline High LDL: 130-159 mg/dLHigh LDL: 160-189 mg/dLVery High LDL: greater than or equal to 190 mg/dL HDL Cholesterol 50 >40 mg/dL [facility] Comment:Desirable HDL: great er than 40 mg/dL Note: This HDL assay may give artificially low results in patients with liver disease. 12/26/2024 10:0 8 AM EDT 12/26/2024 11:21 AM EDT us Generic External Data Provider LAB BLOOD ORDERAB LES Final Result Performing Organization Address City/State/[facility] Co de Phone Number [facility] [address] [place] [phone] * BI Mammogram Screening Tomosynthesis Bilateral (09/30/2024 2:45 PM EDT) Anatomical Region Laterality Modality Breast Bilateral Mammography 09/30/2024 2:45 PM EDT Narrative 10/08/2024 8:50 PM EDT [facility] [address] [place] [address] Mammography Report Signed Patient: Darcy Medina MR#: [id number] : 1965 Acct:[id number] Age/Sex: 59 / F ADM Date: 09/30/24 Loc: HO.MAMMO Attending Dr: Nicky Thibodeaux MD Ordering Physician: Nicky Thibodeaux MD Results: 2B enign Findings Date of Service: 09/30/24 Follow Up: 1 Year From Orig inal Mammogram Procedure(s): MM tomosynthesis screening BI Accession Number(s): [id number] cc: Nicky Thibodeaux MD EXAMINATION: MM SCREENING [...] 10/08/24 2047 DD/ 1445 TD/TT: 09/30/24 1500 Manager Compensation: Procedure Note Donotuseinterpreter, Image - [facility] [address] [place] [address] Mammography Report Signed Patient: Darcy Medina R#: [id number] : 1965Acct:[id number] Age/Sex: 59 / FADM Date: 09/30/24 Loc: HO.MAMMO Attending Dr: Nicky Thibodeaux MD Ordering Physician: Nicky Thibodeaux MDResults: 2B enign Findings Date of Service: 09/30/24Follow Up: 1 Year From Orig inal Mammogram Procedure(s): MM tomosynthesis screening BI Accession Number(s): [id number] cc: Nicky Thibodeaux MD EXAMINATION: MM SCREENING [...] 10/08/24 2047 DD/ 1445 TD/TT: 09/30/24 1500 Manager Compensation: us Nicky Thibodeaux MD IM BI PROCEDURES Edited R esult - Final * Hepatitis C Antibody with Reflex to HCV, RNA, Quantitative, Real-Time PCR (09/03/2022 11:58 AM EDT) Hepatitis C Antibody NON-REACT DILLON NON-REACT DILLON [employer] Index 0.02 <1.00 [facility] [place] [facility] Comment: HCV antibody was non-reactive. There is no laboratory evidence of HCV infection. In most cases, no further action is required. However, if recent HCV exposure is suspected, a test for HCV RNA (test code 85368) is suggested. For additional information please refer to http://education.COINLAB/faq/ZUE11x1 (This link is being provided for informational/ educational purposes only.) Blood Venous blood specimen / Unknown 09/03/2022 11:58 AM EDT 09/03/2022 11:58 AM EDT Narrative [facility] - 09/07/2022 11:33 PM EDT FASTING:YES FASTING: YES Nicky Thibodeaux MD LAB BLOOD ORDERABLES Final Result [facility] [address], [facility] [place] [phone] [facility] [address] [place] [phone] * HIV-1/2 Antigen and Antibodies, Fourth Generation, with Reflexes (09/03/2022 11:58 AM EDT) Pathologist [facility] HIV Antigen/Antibody, 4th Generation NON-REAC TIVE NON-REAC TIVE [facility] Comment: HIV-1 antigen and HIV-1/HIV-2 antibodies [...] purpose. For additional information please refer to http://education.MoPals.Philrealestates/faq/CPX818 (This link is being provided for informational/ educational purposes only.) The performance of this assay has not been clinically validated in patients less than 2 years old. Blood Venous blood specimen / Unknown 09/03/2022 11:58 AM EDT 09/03/2022 11:58 AM EDT Narrative [facility] - 09/07/2022 11:33 PM EDT FASTING:YES FASTING: YES Nicky Thibodeaux MD LAB BLOOD ORDERABLES Final Result [facility] [address], [facility] [place] [phone] [facility] [address] [place] [address] * (ABNORMAL) THINPREP TIS PAP AND HPV mRNA E6/E7, CT/NG, TRICH (08/02/2021 11:49 AM EDT) Chlamydia trachomatis RNA, TMA, Urogenital NOT DETECTED NOT DETECTED [facility] Clinical Information: None given [facility] COMMENT SEE COMMENT [facility] Comment: The analytical performance characteristics of this assay, when used to test SurePath(TM) specimens have been determined by [facility]. The modifications have not been cleared or approved by the FDA. This assay has been validated pursuant to the CLIA regulations and is used for clinical purposes. For additional information, please refer to https://Buzzmove.COINLAB/faq/XDS276 (This link is being provided for information/ [...] has been evaluated with computer assisted technology. [facility] Social Work Specialist: SEE COMMENT [facility] Comment: DCR, CT(ASCP) CT screening location: [place] [address] HPV nRNA E6/E7 Detected(A) Not Detected [facility] Comment: Methodology: Hourly Manager-Mediated Amplification This assay detects E6/E7 viral messenger RNA (mRNA) from 14 high-risk HPV types (16,18,31,33,35,39,45,51,52,56,58,59,66,68). The analytical performance characteristics of this assay have been determined by [facility]. The modifications have not been cleared or approved by the FDA. This assay has been validated pursuant to the CLIA regulations and is used for clinical purposes. For additional information, please refer to http://Buzzmove.COINLAB/faq/EKP790f0 (This link if provided for information/ educational purposes only.) Interpretation/Res ult: SEE COMMENT [facility] Comment: Negative for intraepithelial lesion or malignancy. Atrophic pattern; predominantly parabasal cells LMP: NONE GIVEN [facility] Neisseria gonorrhoeae RNA, TMA, Urogenital NOT DETECTED NOT DETECTED [facility] Prev. BX: NONE GIVEN [facility] Prev. PAP: NONE GIVEN [facility] Review Social Work Specialist: SEE COMMENT [facility] Comment: JXM, CT(ASCP) CT screening location: [place] [address] SOURCE: None given [facility] Statement Of Adequacy: SATISFACTORY FOR EVALUATION [facility] Trichomonas vaginalis, QL, TMA, PAP Vial NOT DETECTED NOT DETECTED [facility] Comment: The analytical performance characteristics of this assay have been determined by [facility]. The modifications have not been cleared or approved by the FDA. This assay has been validated pursuant to the CLIA regulations and is used for clinical purposes. For additional information, please refer to http://education.COINLAB/ faq/Trichomonastma (This link is being provided for information/ educational purposes only.) 08/02/2021 11:4 9 AM EDT Nicky Thibodeaux MD LAB PATHOLOGY ORDERABLES F inal Result [facility] [address] * Pap Smear (08/02/2021 12:00 AM EDT) Swab Nicky Thibodeaux MD LAB CYTOLOGY ORDERABLES Fi nal Result [facility] [address] [place] [phone] * Colonoscopy (12/11/2015) Colonoscopy normal with Dr. Delgado Historical Provider HEALTH MAINTENANCE Final Result from Last 3 Months or Most Recently Relevant to Health Maintenance Insurance [facility] STAND AD[employer] Advance Directives Documents on File Type Date Recorded Patient Satellite Tv Technician Installer Expl anation Advance Directives and Living Will 07/17/2023 Health Care Proxy 07/17/23 Care Teams Extractor And Wringer Operator Relationship Specialty Start Date End Date Morelia, MD Nicky [address] [place] [phone] PCP - General Family Medicine 04/20/18 Wu Manzo MD [address] [place] [address] Drive [address] [place] [address] Pain Medicine 03/29/24 Feroz Ascencio MD [address] [place] [phone] Orthopaedic Surgery 06/15/24 Rolanda Tirado Compound Machine OperatorElementary Spanish Teacher 06/25/23 Latia Guardado PA-C [facility] 04/26/24
--- OUTSIDE RECORDS SUMMARY | 2025-02-22 17:07 | XMS_ITS | Encounter Summary ---
Author Organization [employer] Address 75 [facility] 7t [place] [address] Care Team Providers Care Linux Vmware Administrator Name Role Phone Nicky Thibodeaux MD Primary Care Provider [phone]- [phone] Wu Manzo MD Unavailable Feroz Ascencio MD Unavailable [phone] Reason for Visit * Reason Onset Date Comments Nurse Triage 05/11/2024 Encounter Details Date Type Department Care Team (Late st Contact Info) Description 05/11/2024 Telephone [facility] MEDICINE [address] [place] [address] Nicky Thibodeaux MD [address] [place] [address] Nurse Triage Social History Tobacco Use Types [...] or Thursday.Pt wants appt on Thursday when PRESERVATIONIST is available to bring pt. Reviewed [facility] operating hours and that wait times vary. Unable to book sick on site > 48 hours. Pt advised can call back on Thursday for Thursday scheduled. Reviewed home care advise, ER precautions and reasons to call back. Protocol Used: Dizziness (Adult) Protocol-Based Disposition: Discuss with PCP and Callback by Nurse Today Sent to PCP and Emerado team Primary care nurses for follow up [...] 2:15 PM EST Office Visit [facility] MEDICINE [address] [place] [address] Nicky Thibodeaux MD [address] [place] [address] 05/15/2025 2:00 PM EST Office Visit [facility] OPTOMETRY [address] [place] [address] Rafita, Shannan, OD 230 [place] [address] documented as of this encounter Visit Diagnoses Not on filedocumented in this encounter Additional Health Concerns Assessment Noted Time PHQ-9 Depression Total Score: 14 024 10:51 AM EST documented as of this encounter Care Teams Linux Vmware Administrator Relationship Specialty Start Date End Date Nicky Thibodeaux MD [address] [place] [address] PCP - General Family Medicine 04/20/18 Wu Manzo MD [address] [place] [address] Pain Medicine 03/29/24 Feroz Ascencio MD [address] [place] [phone] Orthopaedic Surgery 06/15/24 Rolanda Tirado Fryline AttendantR D Intern 06/25/23 TREASURE [facility] 04/26/24 documented as of this encounter
--- OUTSIDE RECORDS SUMMARY | 2025-02-22 17:07 | XMS_ITS | Clinical Summary ---
Author Organization [facility] Address [address] [place] [address] Care Team Providers Care Net Wpf Developer Name Role Phone Nicky Thibodeaux MD Primary Care Provider [phone]- [phone] Social History Tobacco Use Types Packs/Day Years [...] age to complete this topic Care Teams Net Wpf Developer Relationship Specialty Start Date End Date Nicky Thibodeaux MD [address] [place] [phone] PCP - General Internal Medicine 12/21/13
--- OUTSIDE RECORDS SUMMARY | 2025-02-22 17:07 | XMS_ITS | Encounter Summary ---
Author Organization [employer] Address 75 [facility] 7t [place] [address] Care Team Providers Care Anesthesiologist Attending Name Role Phone Nicky Thibodeaux MD Primary Care Provider [phone]- [phone] Wu Manzo MD Unavailable Feroz Ascencio MD Unavailable [phone] Reason for Visit * Reason Comments Med Refill Encounter Details Date Type Department Care Team ([facility] Contact Info) Description 08/26/2022 Refill [facility] CHC MED & PEDS [address] [place] [address] Nicky Thibodeaux MD 230 [place] [address] Pain Social History Tobacco Use Types Packs/Day [...] Upcoming Encounters Date Type Department Care Team ([facility] Contact Info) Description 03/29/2025 2:15 PM EST Office Visit [facility] MEDICINE [address] [place] [address] Nicky Thibodeaux MD 230 [place] [address] 05/15/2025 2:00 PM EST Office Visit [facility] OPTOMETRY [address] [place] [address] Rafita, Shannan, OD 230 [place] [address] documented as of this encounter Visit Diagnoses Diagnosis Pain Generalized pain documented in this encounter Additional Health Concerns Assessment Noted Time PHQ-9 Depression Total Score: 22 023 2:09 PM EDT documented as of this encounter Care Teams Anesthesiologist Attending Relationship Specialty Start Date End Date Nicky Thibodeaux MD 230 [place] [address] PCP - General Family Medicine 04/20/18 Wu Manzo MD [address] [facility] [address] [place] [address] Pain Medicine 03/29/24 Feroz Ascencio MD [address] [place] [phone] Orthopaedic Surgery 06/15/24 Rolanda Tirado Wireless Team MemberElectronic Musical Instrument Repairer 06/25/23 TREASURE [facility] 04/26/24 documented as of this encounter
--- OUTSIDE RECORDS SUMMARY | 2025-02-22 17:07 | XMS_ITS | Encounter Summary ---
Author Organization [employer] Address 75 [facility] 7t [place] [address] Care Team Providers Care Sieve Grader Tender Name Role Phone Morelia, Nicky CASTAÑEDA Primary Care Provider [phone]- [phone] Wu Manzo MD Unavailable Feroz Ascencio MD Unavailable [phone] Reason for Visit * Reason Onset Date Comments Medication Question 12/11/2022 Encounter Details Date Type Department Care Team (Late st Contact Info) Description 12/11/2022 Telephone [facility] MEDICINE [address] [place] [address] Chelsi Canseco ANP 230 [place] [address] Medication Question Social History Tobacco Use Types [...] Description 03/29/2025 2:15 PM EST Office Visit [facility] MEDICINE [address] [place] [address] Nicky Thibodeaux MD [address] [place] [address] 05/15/2025 2:00 PM EST Office Visit [facility] OPTOMETRY [address] [place] [address] Rafita, Shannan, OD 230 [place] [address] documented as of this encounter Visit Diagnoses Diagnosis Essential (primary) hypertension Unspecified essential hypertension documented in this encounter Additional Health Concerns Assessment Noted Time PHQ-9 Depression Total Score: 22 023 2:09 PM EDT documented as of this encounter Care Teams Sieve Grader Tender Relationship Specialty Start Date End Date Nicky Thibodeaux MD [address] [place] [address] PCP - General Family Medicine 04/20/18 Wu Manzo MD [address] [place] [address] [address] [place] [address] Pain Medicine 03/29/24 Feroz Ascencio MD [address] [place] [phone] Orthopaedic Surgery 06/15/24 Rolanda Tirado Director Of Child Welfare ServicesSteamer Operator 06/25/23 Latia Guardado PA-C [facility] 04/26/24 documented as of this encounter
--- OUTSIDE RECORDS SUMMARY | 2025-02-22 17:07 | XMS_ITS | Encounter Summary ---
Author Organization [employer] Address [address] [place] [address] 7t [place] [address] Care Team Providers Care Refrigerator Assembler Name Role Phone Nicky Thibodeaux MD Primary Care Provider [phone]- [phone] Wu Manzo MD Unavailable Feroz Ascencio MD Unavailable [phone] Encounter Details Date Type Department Care Team (Late st Contact Info) Description 05/05/2022 Abstract [facility] MEDICINE [address] [place] [address] Nicky Thibodeaux MD [address] [place] [address] [phone] Social History Tobacco Use Types Packs/Day Years [...] Description 03/29/2025 2:15 PM EST Office Visit [facility] MEDICINE [address] [place] [address] [phone] Nicky Thibodeaux MD [address] [place] [address] [phone] 05/15/2025 2:00 PM EST Office Visit [facility] OPTOMETRY [address] [place] [address] [phone] Shannan Eller, OD 230 [place] [address] documented as of this encounter Procedures Procedure Name Priority Date/Time Associated Diagnosis Comments COLPOSCOPY Routine 09/11/2021 12:00 AM EDT PAP SMEAR Routine 08/02/2021 12:00 AM EDT MAMMOGRAPHY Routine 10/29/2020 COLONOSCOPY Routine 12/11/2015 documented in this encounter Results * Colposcopy (09/11/2021 12:00 AM EDT) Historical Provider IN CLINIC/BEDSIDE ORDERAB LES Final Result Performing Organization Address [facility]/ZIP Co de Phone Number [facility] [address] [place] [phone] * Pap Smear (08/02/2021 12:00 AM EDT) Swab Nicky Thibodeaux MD LAB CYTOLOGY ORDERABLES Fi nal Result Performing Organization Address [facility]/ZIP Co de Phone Number [facility] [address] [place] [phone] [phone] * Mammography (10/29/2020) Mammogram BIRADS 2 Anatomical Region Laterality Modality Other Historical Provider HEALTH MAINTENANCE Final Result * Colonoscopy (12/11/2015) Colonoscopy normal with Dr. Delgado Historical Provider HEALTH MAINTENANCE Final Result documented in this encounter Visit Diagnoses Not on filedocumented in this encounter Care Teams Refrigerator Assembler Relationship Specialty Start Date End Date Nicky Thibodeaux MD 230 [place] [address] PCP - General Family Medicine 04/20/[address] [place] [address] Pain Medicine 03/29/24 Feroz Ascencio MD [address] [place] [phone] Orthopaedic Surgery 06/15/24 Rolanda Tirado Nutrition DirectorAir Force Pilot 06/25/23 TREASURE [facility] 04/26/24 documented as of this encounter
--- OUTSIDE RECORDS SUMMARY | 2025-02-22 17:07 | XMS_ITS | Encounter Summary ---
Author Organization [employer] Address [address] [facility] [address] 7t [place] [address] Care Team Providers Care Industrial Gas Production Operator Name Role Phone Nicky Thibodeaux MD Primary Care Provider [phone]- [phone] Wu Manzo MD Unavailable Feroz Ascencio MD Unavailable [phone] Reason for Visit * Reason Onset Date Comments PA 10/12/2023 Encounter Details Date Type Department Care Team (Late st Contact Info) Description 10/12/2023 Telephone [facility] MEDICINE 230 [place] [address] Nicky Thibodeaux MD [address] [place] [address] PA Social History Tobacco Use Types Packs/Day [...] Description 03/29/2025 2:15 PM EST Office Visit [facility] MEDICINE [address] [place] [address] Nicky Thibodeaux MD 230 [place] [address] 05/15/2025 2:00 PM EST Office Visit [facility] OPTOMETRY [address] [place] [address] Rafita, Shannan, OD 230 [place] [address] documented as of this encounter Visit Diagnoses Not on filedocumented in this encounter Additional Health Concerns Assessment Noted Time PHQ-9 Depression Total Score: 22 023 2:09 PM EDT documented as of this encounter Care Teams Industrial Gas Production Operator Relationship Specialty Start Date End Date Nicky Thibodeaux MD [address] [place] [address] PCP - General Family Medicine 04/20/18 Wu Manzo MD [address] [facility] [address] [place] [address] Pain Medicine 03/29/24 Feroz Ascencio MD [address] [place] [phone] Orthopaedic Surgery 06/15/24 Rolanda Tirado Sack Cleaning HandTelevision Antenna Installer 06/25/23 TREASURE [facility] 04/26/24 documented as of this encounter
--- OUTSIDE RECORDS SUMMARY | 2025-02-22 17:07 | XMS_ITS | Encounter Summary ---
Author Organization [employer] Address [address] [facility] [address] 7t [place] [address] Care Team Providers Care Gravel Screener Name Role Phone Nicky Thibodeaux MD Primary Care Provider [phone]- [phone] Wu Manzo MD Unavailable Feroz Ascencio MD Unavailable [phone] Encounter Details Date Type Department Care Team (Late st Contact Info) Description 2023 Orders Only [facility] MEDICINE 230 [place], [place] [phone] Nicky Thibodeaux MD 230 [place] [address] Social History Tobacco Use Types Packs/Day Years [...] 03/29/2025 2:15 PM EST Office Visit [facility] MEDICINE [address] [place] [address] Nicky Thibodeaux MD [address] [place] [address] 05/15/2025 2:00 PM EST Office Visit [facility] OPTOMETRY [address] [place] [address] Rafita, Shannan, OD 230 [place] [address] documented as of this encounter Visit Diagnoses Not on filedocumented in this encounter Additional Health Concerns Assessment Noted Time PHQ-9 Depression Total Score: 22 023 2:09 PM EDT documented as of this encounter Care Teams Gravel Screener Relationship Specialty Start Date End Date Nicky Thibodeaux MD [address] [place] [address] PCP - General Family Medicine 04/20/18 Wu Manzo MD [address] [place] [address] Pain Medicine 03/29/24 Feroz Ascencio MD [address] [place] [phone] Orthopaedic Surgery 06/15/24 Rolanda Tirado Makeup EditorCane Loader 06/25/23 TREASURE [facility] 04/26/24 documented as of this encounter
--- OUTSIDE RECORDS SUMMARY | 2025-02-22 17:07 | XMS_ITS | Encounter Summary ---
Author Organization [employer] Address 75 [facility] 7t [place] [address] Care Team Providers Care Power System Operator Name Role Phone Nicky Thibodeaux MD Primary Care Provider [phone]- [phone] Wu Manzo MD Unavailable Feroz Ascencio MD Unavailable [phone] Reason for Visit * Reason Comments Med Refill Encounter Details Date Type Department Care Team (Late st Contact Info) Description 02/20/2025 Refill [facility] MEDICINE [address] [place] [address] Nicky Thibodeaux MD 230 [place] [address] Pain; Dermatitis; Asthma, unspecified asthma severity, unspecified whether complicated, unspecified whether persistent Social History Tobacco Use Types Packs/Day Years Used Date Smoking Tobacco: Every Day Cigarettes Passive Smoke Exposure: Current Smokeless Tobacco: Never Depression Answer Date Recorded Patient Health Questionnaire-9 Score 12/28/2024 Patient Health Questionnaire-9 Score 19 12/28/2024 Last PHQ-9: Questionnaire Data Not on file 0 12/28/2024 Housing Stability Answer Date Recorded What is your housing situation today? I have ruyclaire pizano 12/28/[address] you [...] Description 03/29/2025 2:15 PM EST Office Visit [facility] MEDICINE 230 [place] [address] Nicky Thibodeaux MD 230 [place] [address] 05/15/2025 2:00 PM EST Office Visit [facility] OPTOMETRY [address] [place] [address] Rafita, Shannan, OD 230 [place] [address] documented as of this encounter Visit Diagnoses Diagnosis Pain Generalized pain Dermatitis Contact dermatitis and other eczema, due to unspecified cause Asthma, unspecified asthma severity, unspecified whether complicated, unspecified whether persistent documented in this encounter Additional Health Concerns Assessment Noted Time PHQ-9 Depression Total Score: 19 025 4:37 PM EDT documented as of this encounter Care Teams Power System Operator Relationship Specialty Start Date End Date Nicky Thibodeaux MD [address] [place] [address] PCP - General Family Medicine 04/20/18 Wu Manzo MD [address] [place] [address] Pain Medicine 03/29/24 Feroz Ascencio MD [address] [place] [phone] Orthopaedic Surgery 06/15/24 Rolanda Tirado Senior Systems ProgrammerGrease Cup Filler 06/25/23 TREASURE [facility] 04/26/24 documented as of this encounter
--- OUTSIDE RECORDS SUMMARY | 2025-02-22 17:07 | XMS_ITS | Encounter Summary ---
Author Organization [employer] Address [address] [place] [address] 7t [place] [address] Care Team Providers Care Can Solderer Name Role Phone Nicky Thibodeaux MD Primary Care Provider [phone]- [phone] Wu Manzo MD Unavailable Feroz Ascencio MD Unavailable [phone] Encounter Details Date Type Department Care Team (Late st Contact Info) Description 05/22/2022 Orders Only [facility] MEDICINE [address] [place] [address] Nereida Horner LPN Social History Tobacco Use [...] Visit [facility] MEDICINE 230 [place] [address] Nicky Thibodeaux MD 230 [place], [place] [phone] 05/15/2025 2:00 PM EST Office Visit [facility] OPTOMETRY [address] [place] [address] Shannan Eller, OD 230 [place] [address] documented as of this encounter Visit Diagnoses Not on filedocumented in this encounter Care Teams Can Solderer Relationship Specialty Start Date End Date [place], [place] Nicky [address] [place] [address] PCP - General Family Medicine 04/20/18 Wu Manzo MD [address] [place] [address] Pain Medicine 03/29/24 Feroz Ascencio MD [address] [place] [phone] Orthopaedic Surgery 06/15/24 Rolanda Tirado Inventory Control/Shipping ReceivingCombiner Operator 06/25/23 Latia Guardado PA-C [facility] 04/26/24 documented as of this encounter
--- OUTSIDE RECORDS SUMMARY | 2025-02-22 17:07 | XMS_ITS | Encounter Summary ---
Author Organization [employer] Address [address] [place] [address] 7t [place] [address] Care Team Providers Care Rhia Name Role Phone Nicky Thibodeaux MD Primary Care Provider [phone]- [phone] Wu Manzo MD Unavailable Feroz Ascencio MD Unavailable [phone] Reason for Visit * Reason Comments Med Refill Encounter Details Date Type Department Care Team (Late st Contact Info) Description 12/11/2022 Refill [facility] MEDICINE [address] [place] [address] Nicky Thibodeaux MD [address] [place] [address] [phone] Social History Tobacco Use Types Packs/Day Years [...] Description 03/29/2025 2:15 PM EST Office Visit [facility] MEDICINE [address] [place] [address] [phone] Nicky Thibodeaux MD [address] [place] [address] [phone] 05/15/2025 2:00 PM EST Office Visit [facility] OPTOMETRY [address] [place], [place] [phone] Rafita Shannan, OD 230 [place] [address] documented as of this encounter Visit Diagnoses Not on filedocumented in this encounter Additional Health Concerns Assessment Noted Time PHQ-9 Depression Total Score: 22 023 2:09 PM EDT documented as of this encounter Care Teams Rhia Relationship Specialty Start Date End Date Nicky Thibodeaux MD 230 [place] [address] PCP - General Family Medicine 04/20/18 Wu Manzo MD [address] [place] [address] [address] [place] [address] Pain Medicine 03/29/24 Feroz Ascencio MD [address] [place] [address] [phone] Orthopaedic Surgery 06/15/24 Rolanda Tirado Secretary Administrative AssistantInfection Prevention Specialist 06/25/23 Latia Guardado PA-C [facility] 04/26/24 documented as of this encounter
--- OUTSIDE RECORDS SUMMARY | 2025-02-22 17:07 | XMS_ITS | Encounter Summary ---
Author Organization [employer] Address 75 [facility] 7t [place] [address] Care Team Providers Care Shot Hole Shooter Name Role Phone Nicky Thibodeaux MD Primary Care Provider [phone]- [phone] Wu Manzo MD Unavailable Feroz Ascencio MD Unavailable [phone] Reason for Visit * Reason Comments Med Refill Encounter Details Date Type Department Care Team (Late st Contact Info) Description 05/26/2024 Refill [facility] MEDICINE [address] [place] [address] Nicky Thibodeaux MD [address] [place] [address] Pain Social History Tobacco Use Types Packs/Day [...] Visit [facility] MEDICINE [address] [place] [address] Nicky Thibodeaux MD [address] [place] [address] 05/15/2025 2:00 PM EST Office Visit [facility] OPTOMETRY [address] [place] [address] Rafita, Shannan, OD 230 [place] [address] documented as of this encounter Visit Diagnoses Diagnosis Pain Generalized pain documented in this encounter Additional Health Concerns Assessment Noted Time PHQ-9 Depression Total Score: 14 024 10:51 AM EST documented as of this encounter Care Teams Shot Hole Shooter Relationship Specialty Start Date End Date Nicky Thibodeaux MD [address] [place] [address] PCP - General Family Medicine 04/20/18 Wu Manzo MD [address] [place] [address] Pain Medicine 03/29/24 Feroz Ascencio MD [address] [place] [address] [phone] Orthopaedic Surgery 06/15/24 Rolanda Tirado Secondary Set Up ManPipe Inspector 06/25/23 Latia Guardado PA-C [facility] 04/26/24 documented as of this encounter
== END 2025-02-22 14:22 | disposition home or self-care (01) ==
PROVIDERS: Visit Provider Anesthesiology
DX: M53.3 Sacrococcygeal disorders, not elsewhere classified (principal); M46.1 Sacroiliitis, not elsewhere classified; M96.1 Postlaminectomy syndrome, not elsewhere classified; G89.4 Chronic pain syndrome
CPT/HCPCS: 99213

== ENCOUNTER → 2025-02-22 13:55 | Outpatient (BNVA) | payer MEDICAID, SELFPAY | PROVIDERS: Visit Provider Anesthesiology | DX: G89.4 Chronic pain syndrome (principal); M96.1 Postlaminectomy syndrome, not elsewhere classified; M46.1 Sacroiliitis, not elsewhere classified; M53.3 Sacrococcygeal disorders, not elsewhere classified | CPT/HCPCS: 99212 ==

== ENCOUNTER → 2025-03-15 11:43 | Outpatient (BNV) | payer MEDICAID, SELFPAY | PROVIDERS: Visit Provider Internal Medicine Cardiovascular Disease | DX: Z01.810 Encounter for preprocedural cardiovascular examination (principal) | CPT/HCPCS: 93010 ==

== ENCOUNTER 2025-03-22 07:00 | Day surgery (SDC) | payer MEDICAID, SELFPAY ==
--- OUTSIDE RECORDS SUMMARY | 2025-02-14 18:40 | XMS_ITS | Encounter Summary ---
Author Organization [employer] Address 75 [facility] 7t [place] [address] Care Team Providers Care Supervisor Prop Making Name Role Phone Nicky Thibodeaux MD Primary Care Provider +1- [phone] Wu Manzo MD Unavailable Feroz Ascencio MD Unavailable [phone] Reason for Visit * Reason Comments Med Refill Encounter Details Date Type Department Care Team (Late st Contact Info) Description 04/09/[address] [facility] MEDICINE [address] [place] [address] Nicky Thibodeaux MD 230 [place] [address] Pain Social History Tobacco Use Types Packs/Day [...] Office Visit [facility] MEDICINE [address] [place] [address] Nicky Thibodeaux MD 230 [place] [address] 05/15/2025 2:00 PM EST Office Visit [facility] OPTOMETRY [address] [place] [address] Rafita, Shannan, OD 230 [place] [address] documented as of this encounter Visit Diagnoses Diagnosis Pain Generalized pain documented in this encounter Additional Health Concerns Assessment Noted Time PHQ-9 Depression Total Score: 22 023 2:09 PM EDT documented as of this encounter Care Teams Supervisor Prop Making Relationship Specialty Start Date End Date Nicky Thibodeaux MD 230 [place] [address] PCP - General Family Medicine 04/20/18 Wu Manzo MD [address] [place] [address] Pain Medicine 03/29/24 Feroz Ascencio MD [address] [place] [phone] Orthopaedic Surgery 06/15/24 Rolanda Tirado Special Events AssistantSoftware Administrator 06/25/23 TREASURE [facility] 04/26/24 documented as of this encounter
--- OUTSIDE RECORDS SUMMARY | 2025-02-14 18:41 | XMS_ITS | Encounter Summary ---
Author Organization [employer] Address 75 [facility] 7t [place] [address] Care Team Providers Care Rails Developer Name Role Phone Nicky Thibodeaux MD Primary Care Provider [phone]- [phone] Wu Manzo MD Unavailable Feroz Ascencio MD Unavailable Reason for Visit * Reason Comments Med Refill Encounter Details Date Type Department Care Team ([facility] Contact Info) Description 08/26/2022 Refill [facility] [address] [place] [address] Nicky Thibodeaux MD 230 [place] [address] Pain Social History Tobacco Use Types Packs/Day [...] Upcoming Encounters Date Type Department Care Team ([facility] Contact Info) Description 03/29/2025 2:15 PM EST Office Visit [facility] MED[facility] 230 [place] [address] Nicky Thibodeaux MD 230 [place] [address] 05/15/2025 2:00 PM EST Office Visit [facility] OPTOMETRY [address] [place] [address] Rafita, Shannan, OD 230 [place] [address] documented as of this encounter Visit Diagnoses Diagnosis Pain Generalized pain documented in this encounter Additional Health Concerns Assessment Noted Time PHQ-9 Depression Total Score: 22 023 2:09 PM EDT documented as of this encounter Care Teams Rails Developer Relationship Specialty Start Date End Date Nicky Thibodeaux MD [address] [place] [address] PCP - General Family Medicine 04/20/18 Wu Manzo MD [address] [facility] [address] [place] [address] Pain Medicine 03/29/24 Feroz Acsencio MD [address] [place] [phone] Orthopaedic Surgery 06/15/24 Rolanda Tirado Operating Room CoordinatorBeam Carrier Hauler Pusher 06/25/23 TREASURE [facility] 04/26/24 documented as of this encounter
--- OUTSIDE RECORDS SUMMARY | 2025-02-14 18:41 | XMS_ITS | Encounter Summary ---
Author Organization [employer] Address [address] [facility] 7t [place] [address] Care Team Providers Care Switchboard Clerk Name Role Phone Morelia, Nicky CASTAÑEDA Primary Care Provider [phone]- [phone] Wu Manzo MD Unavailable Feroz Ascencio MD Unavailable [phone] Reason for Visit * Reason Onset Date Comments Medication Question 12/11/2022 Encounter Details Date Type Department Care Team (Late st Contact Info) Description 12/11/2022 Telephone [facility] [address] [place] [address] Chelsi Canseco ANP [address] [place] [address] Medication Question Social History Tobacco Use Types [...] PM EST Office Visit [facility] [address] [place] [address] Nicky Thibodeaux MD [address] [place] [address] 05/15/2025 2:00 PM EST Office Visit [facility] [address] [place] [address] Rafita, Shannan, OD [address] [place] [address] documented as of this encounter Visit Diagnoses Diagnosis Essential (primary) hypertension Unspecified essential hypertension documented in this encounter Additional Health Concerns Assessment Noted Time PHQ-9 Depression Total Score: 22 023 2:09 PM EDT documented as of this encounter Care Teams Switchboard Clerk Relationship Specialty Start Date End Date Nicky Thibodeaux MD [address] [place] [address] PCP - General Family Medicine 04/20/18 Wu Manzo MD [address] [place] [address] [address] [place] [phone] Pain Medicine 03/29/24 Feroz Ascencio MD [address] [place] [phone] Orthopaedic Surgery 06/15/24 Rolanda Tirado Global Program DirectorClay Maker 06/25/23 Latia Guardado PA-C [facility] 04/26/24 documented as of this encounter
--- OUTSIDE RECORDS SUMMARY | 2025-02-14 18:41 | XMS_ITS | Encounter Summary ---
Author Organization [employer] Address [address] [facility] [address] 7t [place] [address] Care Team Providers Care Taxation Consultant Name Role Phone Nicky Thibodeaux MD Primary Care Provider [phone]- [phone] Wu Manzo MD Unavailable Feroz Ascencio MD Unavailable [phone] Reason for Visit * Reason Onset Date Comments PA 10/12/2023 Encounter Details Date Type Department Care Team (Late st Contact Info) Description 10/12/2023 Telephone [facility] [address] [place] [address] Nicky Thibodeaux MD [address] [place] [address] PA Social History Tobacco Use Types Packs/Day [...] Description 03/29/2025 2:15 PM EST Office Visit [facility] [address] [place] [address] Nicky Thibodeaux MD [address] [place] [address] 05/15/2025 2:00 PM EST Office Visit [facility] [address] [place] [address] Rafita, Shannan, OD [address] [place] [address] documented as of this encounter Visit Diagnoses Not on filedocumented in this encounter Additional Health Concerns Assessment Noted Time PHQ-9 Depression Total Score: 22 023 2:09 PM EDT documented as of this encounter Care Teams Taxation Consultant Relationship Specialty Start Date End Date Nicky Thibodeaux MD [address] [place] [address] PCP - General Family Medicine 04/20/18 Wu Manzo MD [address] [place] [address] Pain Medicine 03/29/24 Feroz Ascencio MD [address] [place] [phone] Orthopaedic Surgery 06/15/24 Rolanda Tirado Regional Project ManagerBedspread Inspector 06/25/23 TRE[facility]URE [facility] 04/26/24 documented as of this encounter
--- OUTSIDE RECORDS SUMMARY | 2025-02-14 18:41 | XMS_ITS | Encounter Summary ---
Author Organization [employer] Address [address] [facility] 7t [place] [address] Care Team Providers Care Landscape Technician Name Role Phone Nicky Thibodeaux MD Primary Care Provider [phone] Wu Manzo MD Unavailable Feroz Ascencio MD Unavailable [phone] Reason for Visit * Reason Comments Med Refill Encounter Details Date Type Department Care Team (Late st Contact Info) Description 05/19/2023 Refill [facility] [address] [place] [address] Nicky Thibodeaux MD [address] [place], [place] [phone] Asthma, unspecified asthma severity, unspecified whether complicated, [...] Visit [facility] [address] [place] [address] Nicky Thibodeaux MD [address] [place] [address] 05/15/2025 2:00 PM EST Office Visit [facility] [address] [place] [address] Rafita, Shannan, OD [address] [place] [address] documented as of this encounter Visit Diagnoses Diagnosis Asthma, unspecified asthma severity, unspecified whether complicated, unspecified whether persistent documented in this encounter Additional Health Concerns Assessment Noted Time PHQ-9 Depression Total Score: 22 023 2:09 PM EDT documented as of this encounter Care Teams Landscape Technician Relationship Specialty Start Date End Date Nicky Thibodeaux MD [address] [place] [address] PCP - General Family Medicine 04/20/18 Wu Manzo MD [address] [place] [phone] Pain Medicine 03/29/24 Feroz Ascencio MD [address] [place] [phone] Orthopaedic Surgery 06/15/24 Rolanda Tirado Dish Cloth InspectorAnnual Giving Director 06/25/23 TRE[facility]URE [facility] 04/26/24 documented as of this encounter
--- OUTSIDE RECORDS SUMMARY | 2025-02-14 18:41 | XMS_ITS | Encounter Summary ---
Author Organization [employer] Address [address] [facility] [facility] [address] 7t [place] [address] Care Team Providers Care Tank Officer Name Role Phone Nicky Thibodeaux MD Primary Care Provider [phone]- [phone] Wu Manzo MD Unavailable Feroz Ascencio MD Unavailable [phone] Reason for Visit * Reason Onset Date Comments Pre-visit Planning 11/09/2023 Encounter Details Date Type Department Care Team (Late st Contact Info) Description 11/09/2023 Telephone [facility] [address] [place] [address] Nicky Thibodeaux MD [address] [place] [address] Pre-visit Planning Social History Tobacco Use Types [...] Description 03/29/2025 2:15 PM EST Office Visit [facility] [address] [place] [address] Nicky Thibodeaux MD [address] [place] [address] 05/15/2025 2:00 PM EST Office Visit [facility] [address] [place] [address] Rafita, Shannan, OD [address] [place] [address] documented as of this encounter Visit Diagnoses Not on filedocumented in this encounter Additional Health Concerns Assessment Noted Time PHQ-9 Depression Total Score: 22 023 2:09 PM EDT documented as of this encounter Care Teams Tank Officer Relationship Specialty Start Date End Date Nicky Thibodeaux MD [address] [place] [address] PCP - General Family Medicine 04/20/18 Wu Manzo MD [address] [place] [address] Drive [address] [place] [address] Pain Medicine 03/29/24 Feroz Ascencio MD [address] [place] [phone] Orthopaedic Surgery 06/15/24 Rolanda Tirado Fish ProtectorAuto Specialty Services Manager 06/25/23 TREASURE [facility] 04/26/24 documented as of this encounter
--- OUTSIDE RECORDS SUMMARY | 2025-02-14 18:41 | XMS_ITS | Encounter Summary ---
Author Organization [employer] Address 75 [facility] 7t [place] [address] Care Team Providers Care Automotive Quality Engineer Name Role Phone Nicky Thibodeaux MD Primary Care Provider [phone]- [phone] Wu Manzo MD Unavailable Feroz Ascencio MD Unavailable [phone] Encounter Details Date Type Department Care [...] Visit [facility] [address] [place] [address] Nicky Thibodeaux MD [address] [place] [address] 05/15/2025 2:00 PM EST Office Visit [facility] [address] [place] [address] Shannan Eller, OD [address] [place] [address] documented as of this encounter Visit Diagnoses Not on filedocumented in this encounter Care Teams Automotive Quality Engineer Relationship Specialty Start Date End Date Morelia, MD Nicky [address] [place] [address] PCP - General Family Medicine 04/20/18 Wu Manzo MD [address] [facility] [address] [place] [address] Pain Medicine 03/29/24 Feroz Ascencio MD [address] [place] [phone] Orthopaedic Surgery 06/15/24 Rolanda Tirado Airport Operations Crew MemberMedical Malpractice Paralegal 06/25/23 TRE[facility]URE [facility] 04/26/24 documented as of this encounter
--- OUTSIDE RECORDS SUMMARY | 2025-02-14 18:41 | XMS_ITS | Encounter Summary ---
Author Organization [employer] Address 75 [facility] 7t [place] [address] Care Team Providers Care Tree Loader Meat Name Role Phone Morelia, Nicky CASTAÑEDA Primary Care Provider [phone] Wu Manzo MD Unavailable Feroz Ascencio MD Unavailable [phone] Reason for Visit * Reason Comments Med Refill Encounter Details Date Type Department Care Team (Late st Contact Info) Description 04/29/2023 Refill [facility] [address] [place] [address] Chelsi Canseco ANP [address] [place] [address] Social History Tobacco Use Types Packs/Day Years [...] EST Office Visit [facility] [address] [place] [address] Nicky Thibodeaux MD [address] [place] [address] 05/15/2025 2:00 PM EST Office Visit [facility] [address] [place] [address] Rafita, Shannan, OD [address] [place] [address] documented as of this encounter Visit Diagnoses Not on filedocumented in this encounter Additional Health Concerns Assessment Noted Time PHQ-9 Depression Total Score: 22 023 2:09 PM EDT documented as of this encounter Care Teams Tree Loader Meat Relationship Specialty Start Date End Date Nicky Thibodeaux MD [address] [place] [address] PCP - General Family Medicine 04/20/18 Wu Manzo MD [address] [place] [address] Pain Medicine 03/29/24 Feroz Ascencio MD [address] [place] [phone] Orthopaedic Surgery 06/15/24 Rolanda Tirado Print Line OperatorSet Up Mechanic Coil Winding Machines 06/25/23 TREASURE [facility] 04/26/24 documented as of this encounter
--- OUTSIDE RECORDS SUMMARY | 2025-02-14 18:41 | XMS_ITS | Clinical Summary ---
Author Organization [employer] Address [address] [place] [address] 7t [place] [address] Care Team Providers Care Regional Training Manager Name Role Phone Nicky Thibodeaux MD Primary Care Provider [phone] Wu Manzo MD Unavailable Feroz Ascencio MD Unavailable [phone] Allergies Active Allergy Reactions Criticality Noted Date Comments Aspirin GI intolerance Low 01/03/2013 Ibuprofen GI intolerance Low 12/29/2014 Medications Spiriva HandiHaler 18 MCG inhalation capsuleIndication s:Chronic obstructive pulmonary disease, unspecified COPD type (CMS/HCC) ([facility]) INHALE 1 CAPSULE VIA HANDIHALER ONCE [...] with anxiety 50 mg. Active HYDROcodone-aceta minophen ([place]) 5-325 MG tabletIndications :Chronic low back pain, [...] due after 03/14/25 -eye care facilitated by [facility] -dental home is [facility] care proxy paperwork completed by to the patient 07/17/23 Assessment & Plan (03/14/2024 11:23 AM EST): -next physical exam due after 03/14/25 -eye care facilitated by [facility] -dental home is [facility] -[facility] care proxy paperwork completed by to the patient 07/17/23 Assessment & Plan (11/19/2023 11:08 AM EDT): -next physical exam due after 12/11/23 -eye care facilitated by [facility] -dental home is [facility] proxy paperwork completed by to the patient 07/17/23 Assessment & Plan (07/17/2023 10:10 AM EDT): -next physical exam due after 12/11/23 -eye care facilitated by [facility] -dental home is [facility] proxy paperwork completed by the patient 07/17/23 [...] the MRI image on the disc from [facility] where she had MRI performed. I also requested her to read brochures about [facility] and [employer]. -note 12/30/24 at [facility] case reviewed with dr taveras, he would offer her ACDF C4-5, C5-6. i will call her and update her. Assessment & Plan (07/17/2023 10:03 AM EDT): Her pain is not controlled. Dillon asked her to reach out to her original prescriber for Vicodin at [facility]. She is 7 weeks post-op sugery and is weaning her percocet's. Dillon explained since she is on Ambien, gabapentin, and benzodiazapine I would not be able to safely prescribe the medications through our program. Assessment & Plan (12/15/2022 9:38 AM EDT): Her pain is not controlled. Dillon asked her to reach out to her original prescriber for Vicodin at [facility]. She is 7 weeks post-op sugery and is weaning her percocet's. Dillon explained since she is on Ambien, gabapentin, and benzodiazapine I would not be able to safely prescribe the medications through our program. Assessment & Plan (09/03/2022 12:12 PM EDT): Her pain is not controlled. Dillon asked her to reach out to her original prescriber for Vicodin at [facility]. She is 7 weeks post-op [...] considered to be 1.7 or 2.4 mg usp. -PA resubmitted 11/19/23 - Advised to Switch [...] considered to be 1.7 or 2.4 mg usp. -PA resubmitted 11/19/23 Assessment & Plan (09/23/2023 [...] considered to be 1.7 or 2.4 mg usp. Chronic low back pain 07/23/2022 Overview (01/25/2025): [...] severe pain. She is getting Vicodin from [facility]. She requests opiate medications from [...] therapy, multiple injections, and awaiting TENs unit. -[facility] prescribing hydrocodone/APA 5/325 to support instrumented activities [...] the MRI image on the disc from [facility] where she had MRI performed. [...] severe pain. She is getting Vicodin from [facility]. She requests opiate medications from [...] pain. She sees a therapist and psychiatrist. -[facility] prescribing hydrocodone/APA 5/325 to support instrumented activities [...] severe pain. She is getting Vicodin from [facility]. She requests opiate medications from [...] -Referral placed to Gynecology, Dr. Aaron 07/17/23 -[facility] called 09/23/23 stating pt declined appt [...] -Referral placed to Gynecology, Dr. Aaron 07/17/23 -[facility] called 09/23/23 stating pt declined appt [...] -Referral placed to Gynecology, Dr. Aaron 07/17/23 -[facility] called 09/23/23 stating pt declined appt [...] left MARISELA 01/29/[address] Neal in [place] -s/p bilateral GT bursa injection under fluoroscopic guidance 06/13/24 with moderate reduction of pain in bilateral lateral hips -seen by ortho at [facility] 07/21/24 Hip [...] Encounters Date Type Department Care Team Description 02/11/[address] [facility] [place] [address] Nicky Thibodeaux MD Abdominal pain, unspecified abdominal location 01/23/[address] [facility] [place] [address] Nicky Thibodeaux MD March Recalls 01/23/2025 Travel 01/20/[address] [facility] [place] [place] [address] Nicky Thibodeaux MD Pain; Osteoarthritis of hip, unspecified laterality, unspecified osteoarthritis type 12/28/2024 4:00 PM EDT Office Visit [facility] [place] [place] [address] Nicky Thibodeaux MD Class 2 severe obesity due to excess calories with serious comorbidity and body mass index (BMI) of 35.0 to 35.9 in adult (CMS/[facility]) (Primary Dx); Dietary counseling; Exercise counseling; Positive depression screening 12/28/2024 Travel 12/27/[address] [facility] [place] [address] Nicky Thibodeaux MD chart prep 12/26/2024 Orders Only GENERIC EXTERNAL DATA DEPARTMENT Provider, Generic External Data 12/25/[address] [facility] [place] [address] Nicky Thibodeaux MD Vitamin D deficiency 12/23/[address] [facility] [place] [address] Nicky Thibodeaux MD Chronic migraine without aura without status migrainosus, not intractable; Pain 12/20/[address] [facility] [place] [address] Nicky Thibodeaux MD Prior Authorization ( PA: Erin) 12/13/[address] [facility] [place] [address] Nicky Thibodeaux MD Osteoarthritis of hip, unspecified laterality, unspecified osteoarthritis type; Pain 12/12/[address] [facility] [address] [place] [address] Nicky Thibodeaux MD PT1 12/06/[address] [facility] [address] [place] [address] Nicky Thibodeaux MD 11/24/[address] [facility] [address] [place] [address] Nicky Thibodeaux MD Pain 11/16/[address] [facility] [address] [place] [address] Nicky Thibodeaux MD Pain 11/16/[address] [facility] [address] [place] [address] Chelsi Canseco ANP Pain 11/14/[address] [facility] [address] [place], [place] [phone] Angie Eli MD Osteoarthritis of hip, unspecified [...] housing situation today? I have ruy harinder 12/28/[address] you li [...] PM EST Office Visit [facility] [address] [place], [place] [phone] Nicky Thibodeaux MD [address] [place] [address] 05/15/2025 2:00 PM EST Office Visit [facility] OPTOMETRY [address] [place], [place] [phone] Shannan Eller, OD [address] [place] [address] Health Maintenance Due Date Last Done Comments [...] EDT) Sodium 144 135 - 145 mmol/L [facility] Potassium 4.6 3.3 - 5.1 mmol/L [facility] Chloride 111(H) 96 - 108 mmol/L [facility] Carbon Dioxide 23 22 - 29 mmol/L [facility] Anion Gap 15 12 - 20 [facility] Urea Nitrogen (BUN) 15 9 - 16 mg/dL [facility] Creatinine, Serum 0.98 0.5 - 1.4 mg/dL [facility] Estimated Glomerular Filt Rate 58 [facility] Comment:Chronic Kidney Disea se: Estimated GFR < 60 mL/min/1.01s8Amicre Kidney Disease: Estimated GFR < 15 mL/min/1.73m2 Glucose Fasting 97 60 - 99 mg/dL [facility] Calcium 9.1 8.4 - 10.2 mg/dL [facility] Bilirubin, Total 0.1 0.0 - 1.0 mg/dL [facility] Aspartate Amino Transferase 19 5 - 31 U/L [facility] Alanine Aminotransferase 22 0 - 31 U/L [facility] Total Protein 7.2 6.5 - 8.0 g/dL [facility] Albumin Level 4.2 3.5 - 5.0 g/dL [facility] Alkaline Phosphatase 90 39 - 117 U/L [facility] 12/26/2024 10:0 8 AM EDT 12/26/2024 11:21 AM EDT us Generic External Data Provider LAB BLOOD ORDERAB LES Final Result [facility] [address] [place] [address] [phone] * (ABNORMAL) CBC auto differential (12/26/2024 10:08 AM EDT) White Blood Count 8.3 4.8 - 10.8 X10*3/uL [facility] Red Blood Count 4.05(L) 4.20 - 5.50 X10*6/uL [facility] Hemoglobin 11.4(L) 12.0 - 16.0 g/dl [facility] Hematocrit 35.8(L) 37.0 - 47.0 % [facility] Mean Corpuscular Volume 88.4 80.0 - 98.0 fL [facility] Mean Corpuscular Hemoglobin 28.1 27.0 - 33.0 pg [facility] Mean Corpuscular HGB Conc 31.8 31.0 - 35.0 g/dl [facility] Red Cell Distribution Width 14.3 11.0 - 16.0 % [facility] Platelet Count 281 160 - 400 X10*3/uL [facility] Mean Platelet Volume 10.8 9.4 - 12.3 fL [facility] Neutrophils Percent Auto 67.5 45 - 73 % [facility] Imm Gran Pct Auto 0.2 0.0 - 0.4 % [facility] Lymphocytes Percent Auto 23.6 20 - 40 % [facility] Monocytes Percent Auto 6.9 2 - 11 % [facility] Eosinophils Percent Auto 1.2 0 - 4 % [facility] Basophils Percent Auto 0.6 0 - 2 % [facility] NRBC Pct Auto 0.0 0.0 - 0.2 /100WBC [facility] Neutrophils Absolute Auto 5.6 2.0 - 8.3 x10*3/uL [facility] Imm Gran Abs Auto 0.02 0.00 - 0.03 X10*3/uL [facility] Lymphocytes Absolute Auto 2.0 1.2 - 4.9 X10*3/uL [facility] Monocytes Absolute Auto 0.6 0.1 - 1.2 X10*3/uL [facility] Eosinophils Absolute Auto 0.1 0.0 - 0.4 X10*3/uL [facility] Basophils Absolute Auto 0.1 0.0 - 0.2 X10*3/uL [facility] NRBC Abs Auto 0.000 0.0 - 0.012 X10*3/uL [facility] 12/26/2024 10:0 8 AM EDT 12/26/2024 11:16 AM EDT us Generic External Data Provider LAB BLOOD ORDERAB LES Final Result [facility] [address] [place] [address] [phone] * (ABNORMAL) Lipid Panel, Standard (12/26/2024 10:08 AM EDT) Triglycerides 198(H) <150 mg/dL [facility] Comment:Desirable Triglyceri de: less than 150 mg/dLBorderline High Triglyceride 150-199 mg/dLHigh Triglyceride: 200-499 mg/dLVery High Triglyceride: greater than or equal to 5OO mg/dL Cholesterol 186 <200 mg/dL [facility] Comment:Desirable Cholestero l: less than 200 mg/dLBorderline High Cholesterol: 200-239 mg/dLHigh Cholesterol: greater than 239 mg/dL LDL Cholesterol Calculated 97 <100 mg/dL [facility] Comment:Desirable LDL: less than 100 mg/dLNear Optimal/Above Optimal LDL: 110- 129 mg/dLBorderline High LDL: 130-159 mg/dLHigh LDL: 160-189 mg/dLVery High LDL: greater than or equal to 190 mg/dL HDL Cholesterol 50 >40 mg/dL [facility] Comment:Desirable HDL: great er than 40 mg/dL Note: This HDL assay may give artificially low results in patients with liver disease. 12/26/2024 10:0 8 AM EDT 12/26/2024 11:21 AM EDT us Generic External Data Provider LAB BLOOD ORDERAB LES Final Result [facility] [address] [place] [address] [phone] * BI Mammogram Screening Tomosynthesis Bilateral (09/30/2024 2:45 PM EDT) Anatomical Region Laterality Modality Breast Bilateral Mammography 09/30/2024 2:45 PM EDT Narrative 10/08/2024 8:50 PM EDT [address] [place] [address] Mammography Report Signed Patient: Darcy Medina MR#: [id number] : 1965 Acct:[id number] Age/Sex: 59 / F ADM Date: 09/30/24 Loc: HO.MAMMO Attending Dr: Nicky Thibodeaux MD Ordering Physician: Nicky Thibodeaux MD Results: 2B enign Findings Date of Service: 09/30/24 Follow Up: 1 Year From [facility] Mammogram Procedure(s): MM tomosynthesis screening BI Accession Number(s): [id number] cc: Nicky Thibodeaux MD EXAMINATION: MM SCREENING [...] signed by Eliza Rivera DO in OV> 10/08/247 DD/ 1445 TD/TT: 09/30/24 1500 Washroom Operator: Procedure Note Donotuseinterpreter, Image - 10/08/20[facility] [address] [place] [address] Mammography Report Signed Patient: Darcy Medina FMR#: [id number] : 1965Acct:[id number] Age/Sex: 59 / FADM Date: 09/30/24 Loc: HO.MAMMO Attending Dr: Nicky Thibodeaux MD Ordering Physician: Nicky Thibodeaux MDResults: 2B enign Findings Date of Service: 09/30/24Follow Up: 1 Year From Orig inal Mammogram Procedure(s): MM tomosynthesis screening BI Accession Number(s): [id number] cc: Nicky Thibodeaux MD EXAMINATION: MM SCREENING [...] OV> 10/08/242046 DD/ 1445 TD/TT: 09/30/24 1500 Washroom Operator: Result [facility] Nicky Thibodeaux MD [facility] BI PROCEDURES Edited R esult - Final * Hepatitis C Antibody with Reflex to HCV, RNA, Quantitative, Real-Time PCR (09/03/2022 11:58 AM EDT) Hepatitis C Antibody NON-REACT DILLON NON-REACT DILLON [employer] [place] [facility] Index 0.02 <1.00 [employer] [place] [facility] Comment: HCV antibody was non-reactive. There is no laboratory evidence of HCV infection. In most cases, no further action is required. However, if recent HCV exposure is suspected, a test for HCV RNA (test code 01121) is suggested. For additional information please refer to http://education.PayPerks/faq/XIK36s1 (This link is being provided for informational/ educational purposes only.) Blood Venous blood specimen / Unknown 09/03/2022 11:58 AM EDT 09/03/2022 11:58 AM EDT Narrative [facility] - 09/07/2022 11:33 PM EDT FASTING:YES FASTING: YES Result [facility] Nicky Thibodeaux MD LAB BLOOD ORDERABLES Final Result [facility] [address] [place] [address] [employer] [place] [facility] [address] [place] [phone] * HIV-1/2 Antigen and Antibodies, Fourth Generation, with Reflexes (09/03/2022 11:58 AM EDT) Pathologist [facility] HIV Antigen/Antibody, 4th Generation NON-REAC TIVE NON-REAC TIVE [employer] [place] [facility] Comment: HIV-1 antigen and HIV-1/HIV-2 antibodies were [...] purpose. For additional information please refer to http://Pantry.[employer]Perks/faq/FGC696 (This link is being provided for informational/ educational purposes only.) The performance of this assay has not been clinically validated in patients less than 2 years old. Blood Venous blood specimen / Unknown 09/03/2022 11:58 AM EDT 09/03/2022 11:58 AM EDT Narrative [facility] - 09/07/2022 11:33 PM EDT FASTING:YES FASTING: YES Nicky Thibodeaux MD LAB BLOOD ORDERABLES Final Result [facility] [address], [place] [address] [employer] [facility] [address] [place] [phone] * (ABNORMAL) THINPREP TIS PAP AND HPV mRNA E6/E7, CT/NG, TRICH (08/02/2021 11:49 AM EDT) Chlamydia trachomatis RNA, TMA, Urogenital NOT DETECTED NOT DETECTED [facility] Clinical Information: None given [facility] COMMENT SEE COMMENT [facility] Comment: The analytical performance characteristics of this assay, when used to test SurePath(TM) specimens have been determined by [employer]. The modifications have not been cleared or approved by the FDA. This assay has been validated pursuant to the CLIA regulations and is used for clinical purposes. For additional information, please refer to https://Pantry.Mailsuite.Siverge Networks/faq/MXU072 (This link is being provided for information/ [...] technology. [facility] Land Lease Information Clerk: SEE COMMENT [facility] Comment: DCR, CT(ASCP) CT screening location: [place] [address] HPV nRNA E6/E7 Detected(A) Not Detected [facility] Comment: Methodology: Personal Caregiver-Mediated Amplification This assay detects E6/E7 viral messenger RNA (mRNA) from 14 high-risk HPV types (16,18,31,33,35,39,45,51,52,56,58,59,66,68). The analytical performance characteristics of this assay have been determined by [employer]. The modifications have not been cleared or approved by the FDA. This assay has been validated pursuant to the CLIA regulations and is used for clinical purposes. For additional information, please refer to http://Pantry.PayPerks/faq/YBS217i6 (This link if provided for information/ educational [...] NONE GIVEN [facility] Review Land Lease Information Clerk: SEE COMMENT [facility] Comment: JXM, CT(ASCP) CT screening location: [place] [address] SOURCE: None given [facility] Statement Of Adequacy: SATISFACTORY FOR EVALUATION [facility] Trichomonas vaginalis, QL, TMA, PAP Vial NOT DETECTED NOT DETECTED [facility] Comment: The analytical performance characteristics of this assay have been determined by [employer]. The modifications have not been cleared or approved by the FDA. This assay has been validated pursuant to the CLIA regulations and is used for clinical purposes. For additional information, please refer to http://Pantry.[employer]Perks/ faq/Trichomonastma (This link is being provided for information/ educational purposes only.) 08/02/2021 11:4 9 AM EDT Nicky Thibodeaux MD LAB PATHOLOGY ORDERABLES F inal Result [facility] [address] * Pap Smear (08/02/2021 12:00 AM EDT) Swab Nicky Thibodeaux MD LAB CYTOLOGY ORDERABLES Fi nal Result [facility] [address] [place] [address] [phone] * Colonoscopy (12/11/2015) Colonoscopy normal with Dr. Delgado Historical Provider HEALTH MAINTENANCE Final Result from Last 3 Months or Most Recently Relevant to Health Maintenance Insurance [facility] STAND ADULT Advance Directives Documents on File Type Date Recorded Patient Cycle Specialist Expl anation Advance Directives and Living Will 07/17/2023 Health Care Proxy 07/17/23 Care Teams Regional Training Manager Relationship Specialty Start Date End Date [place], [place] Nicky [address] [place] [address] PCP - General Family Medicine 04/20/18 Wu Manzo MD [address] [place] [address] Pain Medicine 03/29/24 Feroz Ascencio MD [address] [place] [phone] Orthopaedic Surgery 06/15/24 Rolanda Tirado Manufacturing Project ManagerCommunity Health Agent 06/25/23 Latia Guardado PA-C [facility] 04/26/24
--- OUTSIDE RECORDS SUMMARY | 2025-02-14 18:41 | XMS_ITS | Encounter Summary ---
Author Organization [employer] Address [address] [facility] 7t [place] [address] Care Team Providers Care Aboriginal Community Council Member Name Role Phone Nicky Thibodeaux MD Primary Care Provider [phone] Wu Manzo MD Unavailable Feroz Ascencio MD Unavailable [phone] Reason for Visit * Reason Comments Med Refill Encounter Details Date Type Department Care Team (Late st Contact Info) Description 05/26/2024 Refill [facility] [address] [place] [address] Nicky Thibodeaux MD [address] [place] [address] Pain Social History Tobacco Use Types Packs/Day [...] Office Visit [facility] [address] [place] [address] Nicky Thibodeaux MD [address] [place] [address] 05/15/2025 2:00 PM EST Office Visit [facility] OPTOMETRY [address] [place] [address] Rafita, Shannan, OD [address] [place] [address] documented as of this encounter Visit Diagnoses Diagnosis Pain Generalized pain documented in this encounter Additional Health Concerns Assessment Noted Time PHQ-9 Depression Total Score: 14 024 10:51 AM EST documented as of this encounter Care Teams Aboriginal Community Council Member Relationship Specialty Start Date End Date Nicky Thibodeaux MD [address] [place] [address] PCP - General Family Medicine 04/20/18 Wu Manzo MD [address] [place] [phone] Pain Medicine 03/29/24 Feroz Ascencio MD [address] [place] [phone] Orthopaedic Surgery 06/15/24 Rolanda Tirado Retirement AdministratorNutritional Chemist 06/25/23 Latia Guardado PA-C [facility] 04/26/24 documented as of this encounter
--- OUTSIDE RECORDS SUMMARY | 2025-02-14 18:41 | XMS_ITS | Encounter Summary ---
Author Organization [employer] Address [address] [facility] 7[address] [place] [address] Care Team Providers Care Couture Dressmaker Name Role Phone Nicky Thibodeaux MD Primary Care Provider [phone] Wu Mnazo MD Unavailable Feroz Ascencio MD Unavailable [phone] Encounter Details Date Type Department Care Team (Late st Contact Info) Description 03/11/2023 Abstract [facility] [address] [place], [place] [phone] Thuy Valenzuela Social History Tobacco Use Types [...] Description 03/29/2025 2:15 PM EST Office Visit [facility] [address] [place] [address] Nicky Thibodeaux MD [address] [place] [address] 05/15/2025 2:00 PM EST Office Visit [facility] OPTOMETRY [address] [place] [address] Rafita, Shannan, OD [address] [place] [address] documented as of this encounter Visit Diagnoses Not on filedocumented in this encounter Additional Health Concerns Assessment Noted Time PHQ-9 Depression Total Score: 22 023 2:09 PM EDT documented as of this encounter Care Teams Couture Dressmaker Relationship Specialty Start Date End Date Nicky Thibodeaux MD [address] [place] [address] PCP - General Family Medicine 04/20/18 Wu Manzo MD [address] [place] [phone] Pain Medicine 03/29/24 Feroz Ascencio MD [address] [place] [phone] Orthopaedic Surgery 06/15/24 Rolanda Tirado Architectural Project ManagerDirector Of Adult Epilepsy 06/25/23 Latia Guardado PA-C [facility] 04/26/24 documented as of this encounter
--- OUTSIDE RECORDS SUMMARY | 2025-02-14 18:41 | XMS_ITS | Encounter Summary ---
Author Organization [employer] Address [address] 7t [place] [address] Care Team Providers Care Time Study Statistician Name Role Phone Nicky Thibodeaux MD Primary Care Provider +1- [phone] Wu Manzo MD Unavailable Feroz Ascencio MD Unavailable [phone] Reason for Visit * Reason Onset Date Comments PT-1 12/08/2023 Encounter Details Date Type Department Care Team (Late st Contact Info) Description 12/08/2023 Telephone [facility] [address] [place] [address] Nicky Thibodeaux MD 230 [place] [address] PT-1 Social History Tobacco Use Types Packs/Day [...] Y/N: Yes Provider name or facility name: [facility] pain management Facility Address: [address] [place] [address] Escort needed: Y/N: No Do you have a wheelchair: Y/N: No If yes- Manual or electric: N/A (uses walker) Visits: twice a month documented in this encounter Plan of Treatment Upcoming Encounters Date Type Department Care Team (Late st Contact Info) Description 03/29/2025 2:15 PM EST Office Visit [facility] 230 [place] [address] Nicky Thibodeaux MD 230 [place] [address] 05/15/2025 2:00 PM EST Office Visit [facility] [address] [place] [address] Shannan Eller, GREG 230 [place] [address] documented as of this encounter Visit Diagnoses Not on filedocumented in this encounter Additional Health Concerns Assessment Noted Time PHQ-9 Depression Total Score: 22 023 2:09 PM EDT documented as of this encounter Care Teams Time Study Statistician Relationship Specialty Start Date End Date Nicky Thibodeaux MD 230 [place] [address] PCP - General Family Medicine 04/20/18 Wu Manzo MD [address] [place] [address] Pain Medicine 03/29/24 Feroz Ascencio MD [address] [place] [phone] Orthopaedic Surgery 06/15/24 Rolanda Tirado Hardener HelperMicrostrategy Bi Developer 06/25/23 TREASURE [facility] 04/26/24 documented as of this encounter
--- OUTSIDE RECORDS SUMMARY | 2025-02-14 18:41 | XMS_ITS | Encounter Summary ---
Author Organization [employer] Address [address] 7t [place] [address] Care Team Providers Care Pain Management Nurse Name Role Phone Nicky Thibodeaux MD Primary Care Provider +1- [phone] Wu Manzo MD Unavailable Feroz Ascencio MD Unavailable [phone] Reason for Visit * Reason Onset Date Comments Med Refill 04/29/2023 Encounter Details Date Type Department Care Team (Late st Contact Info) Description 04/29/2023 Telephone [facility] [address] [place] [address] Nicky Thibodeaux MD 230 [place] [address] Med Refill Social History Tobacco Use Types [...] 500 MG tablet To be sent to: [facility]/pharmacy [address] [place] [address] documented in this encounter Plan of Treatment Upcoming Encounters Date Type Department Care Team (Late st Contact Info) Description 03/29/2025 2:15 PM EST Office Visit [facility] [address] [place] [address] Nicky Thibodeaux MD 230 [place] [address] 05/15/2025 2:00 PM EST Office Visit [facility] [address] [place] [address] Shannan Eller, OD 230 [place] [address] documented as of this encounter Visit Diagnoses Not on filedocumented in this encounter Additional Health Concerns Assessment Noted Time PHQ-9 Depression Total Score: 22 023 2:09 PM EDT documented as of this encounter Care Teams Pain Management Nurse Relationship Specialty Start Date End Date Nicky Thibodeaux MD [address] [place] [address] PCP - General Family Medicine 04/20/18 Wu Manzo MD [address] [place] [address] [address] [place] [address] Pain Medicine 03/29/24 Feroz Ascencio MD [address] [place] [phone] Orthopaedic Surgery 06/15/24 Rolanda Tirado Qa Software Test EngineerLong Chain Beamer 06/25/23 Latia Guardado PA-C [facility] 04/26/24 documented as of this encounter
--- OUTSIDE RECORDS SUMMARY | 2025-02-14 18:41 | XMS_ITS | Encounter Summary ---
Author Organization [employer] Address [address] [facility] 7t [place] [address] Care Team Providers Care Paralegal Instructor Name Role Phone Nicky Thibodeaux MD Primary Care Provider +1- [phone] Wu Manzo MD Unavailable Feroz Ascencio MD Unavailable [phone] Reason for Visit * Reason Onset Date Comments Durable Medical Equipment 08/07/2022 Encounter Details Date Type Department Care Team (Late st Contact Info) Description 08/07/2022 Telephone [facility] 230 [place] [address] Nicky Thibodeaux MD 230 [place] [address] Durable Medical Equipment Social History Tobacco Use [...] - 08/14/2022 9:23 AM EDT Tc from [facility] requesting status on a form send over for [facility]. Please contact Renzo at [phone] * Telephone Encounter - Wellington Smith - 08/07/2022 9:57 AM EDT Tc from [facility] with [facility] requesting a status on a form sent over for a [facility] Grab [facility]. Please contact renzo at [phone] documented in this encounter Plan of Treatment Upcoming Encounters Date Type Department Care Team (Late st Contact Info) Description 03/29/2025 2:15 PM EST Office Visit [facility] 230 [place] [address] Nicky Thibodeaux MD 230 [place] [address] 05/15/2025 2:00 PM EST Office Visit [facility] OPT[facility]ET[facility] [address] [place] [address] Rafita, Shannan, OD 230 [place] [address] documented as of this encounter Visit Diagnoses Not on filedocumented in this encounter Additional Health Concerns Assessment Noted Time PHQ-9 Depression Total Score: 22 023 2:09 PM EDT documented as of this encounter Care Teams Paralegal Instructor Relationship Specialty Start Date End Date Nicky Thibodeaux MD 230 [place] [address] PCP - General Family Medicine 04/20/18 Wu Manzo MD [address] [place] [address] Pain Medicine 03/29/24 Feroz Ascencio MD [address] [place] [phone] Orthopaedic Surgery 06/15/24 Rolanda Tirado Community ManagerElectrical Linesworker 06/25/23 TREASURE [facility] 04/26/24 documented as of this encounter
--- OUTSIDE RECORDS SUMMARY | 2025-02-14 18:41 | XMS_ITS | Encounter Summary ---
Author Organization [employer] Address [address] [facility] 7t [place] [address] Care Team Providers Care Calciner Operator Name Role Phone Nicky Thibodeaux MD Primary Care Provider [phone]- [phone] Wu Manzo MD Unavailable Feroz Ascencio MD Unavailable [phone] Encounter Details Date Type Department Care Team (Late Contact Info) Description 08/12/2022 Orders Only [facility] MEDICINE [address] [place] [address] Nicky Thibodeaux MD [address] [place] [address] Social History Tobacco Use Types Packs/Day Years [...] 03/29/2025 2:15 PM EST Office Visit [facility] 230 [place] [address] Nicky Thibodeaux MD 230 [place] [address] 05/15/2025 2:00 PM EST Office Visit [facility] OPTOMET[facility] [address] [place] [address] Rafita, Shannan, OD 230 [place] [address] documented as of this encounter Visit Diagnoses Not on filedocumented in this encounter Additional Health Concerns Assessment Noted Time PHQ-9 Depression Total Score: 22 023 2:09 PM EDT documented as of this encounter Care Teams Calciner Operator Relationship Specialty Start Date End Date Nicky Thibodeaux MD 230 [place] [address] PCP - General Family Medicine 04/20/18 uW Manzo MD [address] [place] [address] Drive [address] [place] [address] Pain Medicine 03/29/24 Feroz Ascencio MD [address] [place] [phone] Orthopaedic Surgery 06/15/24 Rolanda Tirado Sandwich And Drink Cart OperatorBlind Eyeletter 06/25/23 Latia Guardado PA-C [facility] 04/26/24 documented as of this encounter
--- OUTSIDE RECORDS SUMMARY | 2025-02-14 18:41 | XMS_ITS | Clinical Summary ---
Author Organization [facility] Address [address] [place] [address] Care Team Providers Care Card Sorter Name Role Phone Nicky Thibodeaux MD Primary Care Provider +1- [phone] Social History Tobacco Use Types Packs/Day Years [...] Screening 1965 Colorectal Cancer Screening: Colonoscopy 1965 Hepatitis B Vaccines (1 of 3 - 19+ 3-dose series) 1984 Pneumococcal Vaccine: 50+ Years (2 of 2 - PCV) 04/05/2015 04/05/2014 RSV Immunization Adult Patients (1 - Risk 50-74 years 1-dose series) 07/21/2015 Zoster Vaccines (1 of 2) 07/21/2015 Social Influencers of Health Screening 03/30/2022 Depression Screening 04/20/2024 Cervical Cancer Screening: P ap Smear 08/02/2024 08/02/2021 COVID-19 Vaccine ( - 2023-2 5 season) 2024 Influenza Vaccine (#1) 2024 4, 12/29/2012, 01/19/2012 Hypertension/CHF/CAD Annual BMP Blood Test 02/08/2025 Cholesterol Screening (Lipid Panel) 12/26/2029 12/26/2024 DTaP,Tdap,and Td Vaccines (4 - Td or Tdap) 05/28/2034 05/28/2024, 09/03/2022, 05/07/2011 HIV Screening Completed 09/03/2022 Hepatitis C Screening [...] to complete this topic RSV Immunization Patients Under 20 months Aged Out No longer eligible b ased on patient's age to complete this topic Varicella Vaccines Aged Out No longer eligible based on patient's age to complete this topic Care Teams Card Sorter Relationship Specialty Start Date End Date Nicky Thibodeaux MD [address] [place] [phone] PCP - General Internal Medicine 12/21/13
--- OUTSIDE RECORDS SUMMARY | 2025-02-14 18:41 | XMS_ITS | Encounter Summary ---
Author Organization [employer] Address [address] [facility] 7t [place] [address] Care Team Providers Care Operating Room Assistant Name Role Phone Nicky Thibodeaux MD Primary Care Provider [phone]- [phone] Wu Manzo MD Unavailable Feroz Ascencio MD Unavailable [phone] Reason for Visit * Reason Onset Date Comments Nurse Triage 05/11/2024 Encounter Details Date Type Department Care Team (Late st Contact Info) Description 05/11/2024 Telephone [facility] 230 [place] [address] Nicky Thibodeaux MD 230 [place] [address] Nurse Triage Social History Tobacco Use Types [...] or Thursday.Pt wants appt on Thursday when CONTACT LENS CUTTER is available to bring pt. Reviewed PARK [...] by Nurse Today Sent to PCP and [place] team Primary care nurses for follow up [...] Description 03/29/2025 2:15 PM EST Office Visit [facility] 230 [place] [address] Nicky Thibodeaux MD 230 [place] [address] 05/15/2025 2:00 PM EST Office Visit [facility] OPTOMETRY [address] [place] [address] Rafita, Shannan, OD 230 [place] [address] documented as of this encounter Visit Diagnoses Not on filedocumented in this encounter Additional Health Concerns Assessment Noted Time PHQ-9 Depression Total Score: 14 024 10:51 AM EST documented as of this encounter Care Teams Operating Room Assistant Relationship Specialty Start Date End Date Nicky Thibodeaux MD 230 [place] [address] PCP - General Family Medicine 04/20/18 Wu Manzo MD [address] [place] [address] Pain Medicine 03/29/24 Feroz Ascencio MD [address] [place] [phone] Orthopaedic Surgery 06/15/24 Rolanda Tirado Bread Oven OperatorManager Shop 06/25/23 TREASURE [facility] 04/26/24 documented as of this encounter
--- OUTSIDE RECORDS SUMMARY | 2025-02-14 18:41 | XMS_ITS | Encounter Summary ---
Author Organization [employer] Address [address] [facility] [address] 7t [place] [address] Care Team Providers Care Ophthalmic Pathologist Name Role Phone Nicky Thibodeaux MD Primary Care Provider +1- [phone] Wu Manzo MD Unavailable Feroz Ascencio MD Unavailable [phone] Encounter Details Date Type Department Care Team (Late st Contact Info) Description 2023 Orders Only [facility] 230 [place], [place] [phone] Nicky Thibodeaux MD 230 [place] [address] Social History Tobacco Use Types Packs/Day Years [...] Office Visit [facility] 230 [place] [address] Nicky Thibodeaux MD 230 [place] [address] 05/15/2025 2:00 PM EST Office Visit [facility] OPT[facility] [address] [place] [address] Rafiat, Shannan, OD 230 [place] [address] documented as of this encounter Visit Diagnoses Not on filedocumented in this encounter Additional Health Concerns Assessment Noted Time PHQ-9 Depression Total Score: 22 023 2:09 PM EDT documented as of this encounter Care Teams Ophthalmic Pathologist Relationship Specialty Start Date End Date Nicky Thibodeaux MD 230 [place] [address] PCP - General Family Medicine 04/20/18 Wu Manzo MD [address] [place] [address] Pain Medicine 03/29/24 Feroz Ascencio MD [address] [place] [phone] Orthopaedic Surgery 06/15/24 Rolanda Tirado O And M SupervisorSenior Svp 06/25/23 TREASURE [facility] 04/26/24 documented as of this encounter
--- OUTSIDE RECORDS SUMMARY | 2025-02-14 18:41 | XMS_ITS | Encounter Summary ---
Author Organization [employer] Address [address] [facility] 7t [place] [address] Care Team Providers Care Senior Project Manager Engineering Name Role Phone Nicky Thibodeaux MD Primary Care Provider +1- [phone] Wu Manzo MD Unavailable Feroz Ascencio MD Unavailable [phone] Reason for Visit * Reason Comments Med Refill Encounter Details Date Type Department Care Team (Late st Contact Info) Description 02/11/2025 Refill [facility] [address] [place] [address] Nicky Thibodeaux MD [address] [place], [place] [phone] Abdominal pain, unspecified abdominal location Social History Tobacco Use Types Packs/Day Years [...] Description 03/29/2025 2:15 PM EST Office Visit [facility] [address] [place] [address] Nicky Thibodeaux MD [address] [place] [address] 05/15/2025 2:00 PM EST Office Visit [facility] OPTOM[facility]RY 267 [place] [address] Rafita, Shannan, OD 230 [place] [address] documented as of this encounter Visit Diagnoses Diagnosis Abdominal pain, unspecified abdominal location documented in this encounter Additional Health Concerns Assessment Noted Time PHQ-9 Depression Total Score: 19 025 4:37 PM EDT documented as of this encounter Care Teams Senior Project Manager Engineering Relationship Specialty Start Date End Date Nicky Thibodeaux MD [address] [place] [address] PCP - General Family Medicine 04/20/18 Wu Manzo [address] [place] [address] Pain Medicine 03/29/24 Feroz Ascecnio MD [address] [place] [phone] Orthopaedic Surgery 06/15/24 Rolanda Tirado Program Manager TransportationPhysician Internist 06/25/23 Latia Guardado PA-C [facility] 04/26/24 documented as of this encounter
--- OUTSIDE RECORDS SUMMARY | 2025-02-14 18:41 | XMS_ITS | Encounter Summary ---
Author Organization [employer] Address [address] [place] [address] 7t [place] [address] Care Team Providers Care Screw Supervisor Name Role Phone Nicky Thibodeaux MD Primary Care Provider +1- [phone] Wu Manzo MD Unavailable Feroz Ascencio MD Unavailable [phone] Reason for Visit * Reason Comments Med Refill Encounter Details Date Type Department Care Team (Late Contact Info) Description 2022 Refill [facility] 230 [place], [place] [phone] Krystin Frederick FNP Chronic migraine without aura [...] Description 03/29/2025 2:15 PM EST Office [facility] 230 [place], [place] [phone] Nicky Thibodeaux MD 230 [place], [place] [phone] 05/15/2025 2:00 PM EST Office Visit [facility] [address] [place], [place] [phone] Shannan Eller, OD 230 [place] [address] documented as of this encounter Visit Diagnoses Diagnosis Chronic migraine without aura without status migrainosus, not intractable documented in this encounter Care Teams Screw Supervisor Relationship Specialty Start Date End Date Nicky Thibodeaux MD 230 [place] [address] PCP - General Family Medicine 04/20/18 Wu Manzo MD [address] [place] [address] Drive [address] [place] [address] Pain Medicine 03/29/24 Feroz Ascencio MD [address] [place] [phone] Orthopaedic Surgery 06/15/24 Rolanda Tirado Electroplating TechnicianRoll Threader Operator 06/25/23 Latia Guardado PA-C [facility] 04/26/24 documented as of this encounter
--- OUTSIDE RECORDS SUMMARY | 2025-02-14 18:41 | XMS_ITS | Encounter Summary ---
Author Organization [employer] Address 75 [facility] 7t [place] [address] Care Team Providers Care Cartoonist Special Effects Name Role Phone Nicky Thibodeaux MD Primary Care Provider [phone]- [phone] Wu Manzo MD Unavailable Feroz Ascencio MD Unavailable [phone] Reason for Visit * Reason Onset Date Comments pt1 10/12/2024 Encounter Details Date Type Department Care Team (Late st Contact Info) Description 10/12/2024 Telephone [facility] 230 [place] [address] Nicky Thibodeaux MD 230 [place] [address] pt1 Social History Tobacco Use Types Packs/Day [...] EDT CHW Cheyenne Carpio submitted pt1 to [facility] for location below and will take up to 7 days to getapproved. CHW placed call to patient to let her know, patient understood and will call if she has any concerns. documented in this encounter Plan of Treatment Upcoming Encounters Date Type Department Care Team (Late st Contact Info) Description 03/29/2025 2:15 PM EST Office Visit [facility] 230 [place] [address] Nicky Thibodeaux MD 230 [place] [address] 05/15/2025 2:00 PM EST Office Visit [facility] OPTOMETRY [address] [place] [address] Shannan Eller OD 230 [place] [address] documented as of this encounter Visit Diagnoses Not on filedocumented in this encounter Additional Health Concerns Assessment Noted Time PHQ-9 Depression Total Score: 14 024 10:51 AM EST documented as of this encounter Care Teams Cartoonist Special Effects Relationship Specialty Start Date End Date Nicky Thibodeaux MD 230 [place] [address] PCP - General Family Medicine 04/20/18 Wu Manzo MD [address] [facility] [address] [place] [address] Pain Medicine 03/29/24 Feroz Ascencio MD [address] [place] [phone] Orthopaedic Surgery 06/15/24 Rolanda Tirado Cup Machine OperatorChina And Silverware Salesperson 06/25/23 Latia Guardado PA-C [facility] 04/26/24 documented as of this encounter
--- OUTSIDE RECORDS SUMMARY | 2025-02-14 18:41 | XMS_ITS | Encounter Summary ---
Author Organization [employer] Address [address] [place] [address] 7t [place] [address] Care Team Providers Care Mask Layout Designer Name Role Phone Nicky Thibodeaux MD Primary Care Provider [phone]- [phone] Wu Manzo MD Unavailable Feroz Ascencio MD Unavailable [phone] Reason for Visit * Reason Comments Med Refill Encounter Details Date Type Department Care Team (Late st Contact Info) Description 12/11/2022 Refill [facility] MEDICINE [address] [place] [phone] Nicky Thibodeaux MD [address] [place] [address] [phone] Social History Tobacco Use Types Packs/Day Years [...] Description 03/29/2025 2:15 PM EST Office Visit [facility] [address] [place] [address] [phone] Nicky Thibodeaux MD [address] [place] [phone] 05/15/2025 2:00 PM EST Office Visit [facility] OPTOMETRY [address], [place] [phone] Rafita Shannan, OD 230 [place] [address] documented as of this encounter Visit Diagnoses Not on filedocumented in this encounter Additional Health Concerns Assessment Noted Time PHQ-9 Depression Total Score: 22 023 2:09 PM EDT documented as of this encounter Care Teams Mask Layout Designer Relationship Specialty Start Date End Date Nicky Thibodeaux MD 230 [place] [address] PCP - General Family Medicine 04/20/18 Wu Manzo MD [address] [place] [address] [address] [place] [address] Pain Medicine 03/29/24 Feroz Ascencio MD [address] [place] [phone] Orthopaedic Surgery 06/15/24 Rolanda Tirado Section LaborerEdger Feeder 06/25/23 Latia Guardado PA-C [facility] 04/26/24 documented as of this encounter
--- OUTSIDE RECORDS SUMMARY | 2025-02-14 18:41 | XMS_ITS | Encounter Summary ---
Author Organization [employer] Address [address] [place] [address] 7t [place] [address] Care Team Providers Care Structural Design Engineer Name Role Phone Nicky Thibodeaux MD Primary Care Provider [phone]- [phone] Wu Manzo MD Unavailable Feroz Ascencio MD Unavailable [phone] Encounter Details Date Type Department Care Team (Late st Contact Info) Description 05/22/2022 Orders Only [facility] MEDICINE [address] [place] [address] Nereida Horner LPN Social History Tobacco Use [...] 2:15 PM EST Office Visit [facility] MEDICINE 230 [place] [address] Nicky Thibodeaux MD 230 [place], [place] [phone] 05/15/2025 2:00 PM EST Office Visit [facility] OPTOMETRY [address] [place] [address] Shannan Eller, OD 230 [place] [address] documented as of this encounter Visit Diagnoses Not on filedocumented in this encounter Care Teams Structural Design Engineer Relationship Specialty Start Date End Date [place], MD Nicky 230 [place] [address] PCP - General Family Medicine 04/20/18 Wu Manzo MD [address] [place] [address] Pain Medicine 03/29/24 Feroz Ascencio MD [address] [place] [phone] Orthopaedic Surgery 06/15/24 Rolanda Tirado Body PresserGrocery Cashier 06/25/23 Latia Guardado PA-C [facility] 04/26/24 documented as of this encounter
--- OUTSIDE RECORDS SUMMARY | 2025-02-14 18:41 | XMS_ITS | Encounter Summary ---
Author Organization [employer] Address [address] [place] [address] 7t [place] [address] Care Team Providers Care Hand Tool Filer Name Role Phone Nicky Thibodeaux MD Primary Care Provider [phone] Wu Mazno MD Unavailable Feroz Ascencio MD Unavailable [phone] Encounter Details Date Type Department Care Team (Late st Contact Info) Description 05/05/2022 Abstract [facility]INE [address] [place] [phone] Nicky Thibodeaux MD [address] [place] [address] [phone] Social History Tobacco Use Types Packs/Day Years [...] Description 03/29/2025 2:15 PM EST Office Visit [facility] [address] [place] [address] [phone] Nicky Thibodeaux MD [address] [place], [place] [phone] 05/15/2025 2:00 PM EST Office Visit [facility] OPTOMETRY [address] [place] [address] [phone] Shannan Eller, OD [address] [place] [address] documented as of this encounter Procedures Procedure Name Priority Date/Time Associated Diagnosis Comments COLPOSCOPY Routine 09/11/2021 12:00 AM EDT PAP SMEAR Routine 08/02/2021 12:00 AM EDT MAMMOGRAPHY Routine 10/29/2020 COLONOSCOPY Routine 12/11/2015 documented in this encounter Results * Colposcopy (09/11/2021 12:00 AM EDT) Historical Provider IN CLINIC/BEDSIDE ORDERAB LES Final Result Performing Organization Address [facility]/ZIP Co de Phone Number [facility] [address] [place] [phone] * Pap Smear (08/02/2021 12:00 AM EDT) Swab Nicky Thibodeaux MD LAB CYTOLOGY ORDERABLES Fi nal Result Performing Organization Address [facility]/ZIP Co de Phone Number [facility] [address] [place] [address] [phone] * Mammography (10/29/2020) Mammogram BIRADS 2 Anatomical Region Laterality Modality Other Historical Provider HEALTH MAINTENANCE Final Result * Colonoscopy (12/11/2015) Colonoscopy normal with Dr. Delgado Historical Provider HEALTH MAINTENANCE Final Result documented in this encounter Visit Diagnoses Not on filedocumented in this encounter Care Teams Hand Tool Filer Relationship Specialty Start Date End Date Nicky Thibodeaux MD [address] [place] [address] PCP - General Family Medicine 04/20/18 Wu Manzo MD [address] [place] [address] Pain Medicine 03/29/24 Feroz Ascencio MD [address] [place] [phone] Orthopaedic Surgery 06/15/24 Rolanda Tiardo Lead Burner SupervisorMunitions Handler 06/25/23 TREASURE [facility] 04/26/24 documented as of this encounter
--- OUTSIDE RECORDS SUMMARY | 2025-02-14 18:41 | XMS_ITS | Encounter Summary ---
Author Organization [employer] Address [address] [place] [address] 7t [place] [address] Care Team Providers Care Lower In Supervisor Name Role Phone Morelia, Nicky CASTAÑEDA Primary Care Provider [phone]- [phone] Wu Manzo MD Unavailable Feroz Ascencio MD Unavailable [phone] Reason for Visit * Reason Comments Med Refill Encounter Details Date Type Department Care Team (Late st Contact Info) Description 09/30/2022 Refill [facility] MED[facility]INE [address] [place] [address] Deborah Stratton MD [address] [place] [address] Chronic migraine without aura without status migrainosus, [...] 2:15 PM EST Office Visit [facility] MED[facility]INE [address] [place] [address] Nicky Thibodeaux MD [address] [place] [address] 05/15/2025 2:00 PM EST Office Visit [facility] OPTOMETRY [address] [place] [address] Rafita, Shanann, OD [address] [place] [address] documented as of this encounter Visit Diagnoses Diagnosis Chronic migraine without aura without status migrainosus, not intractable documented in this encounter Additional Health Concerns Assessment Noted Time PHQ-9 Depression Total Score: 22 023 2:09 PM EDT documented as of this encounter Care Teams Lower In Supervisor Relationship Specialty Start Date End Date Nicky Thibodeaux MD [address] [place] [address] PCP - General Family Medicine 04/20/18 Wu Manzo MD [address] [place] [address] [address] [place] [phone] Pain Medicine 03/29/24 Feroz Ascencio MD [address] [place] [phone] Orthopaedic Surgery 06/15/24 Rolanda Tirado Hardware Test EngineerAnesthesiology Medical Doctor 06/25/23 TREASURE [facility] 04/26/24 documented as of this encounter
[2025-03-08 10:42] VITALS: BMI 30.1
--- NOTE | 2025-03-15 | ECG_ITS ---
Test Reason : PREOP Blood Pressure : */* mmHG Vent. Rate : 74 BPM Atrial Rate : 74 BPM P-R Int : 152 ms QRS Dur : 84 ms QT Int : 382 ms P-R-T Axes : 48 14 36 degrees QTcB Int : 424 ms Normal sinus rhythm Possible Left atrial enlargement Borderline ECG When compared with ECG of 03-Mar-2022 11:24, No significant change was found Referred By: Minoo Peters Electronically Signed By: Bernard Saunders
[2025-03-15 10:58] VITALS: BMI 28.6
[2025-03-15 11:01] VITALS: BP 129/58; PULSE 82; RESP 18; O2SAT 98
[2025-03-22] VITALS (14 sets, daily range): BP systolic 128–163; BP diastolic 54–83; PULSE 75–97; RESP 10–30; TEMP 36.1; O2SAT 92–99; BMI 28.2
--- NOTE | ~2025-03-22 | FL_ITS ---
EXAMINATION: FL GUIDANCE ONLY HISTORY: C4-6 ACDF COMPARISON: Correlation is made to plain films of the cervical spine dated 01/24/2025. TECHNIQUE: Fluoroscopy time: 5.9 seconds. Cumulative Dose: 0.9035 mGy. DAP: 0.2406 Gycm2 Images: 2. FINDINGS: Fluoroscopic spot films of the cervical spine demonstrate anterior cervical disc fusion at C4-5 and C5-6. FL/FL guidance in OR IMPRESSION: Fluoroscopy during procedure. Please see procedure report for additional information. Electronically signed by: Calvin Grimes MD 03/22/2025 01:28 PM [facility]
--- NOTE | 2025-03-22 06:57 | MHC.SHP ---
Pre-Procedural Eval Section A - 24 Hr Update-Section A only Date of Service: 03/22/25 Section B - Complete if H&P > 30 days Chief Complaint: Radiculopathy, cervical region,(L) shoulder pain Allergies: Allergies Allergy/AdvReac Type Severity Reaction Status Date / Time aspirin (ASPIRIN) Allergy Mild GI UPSET Verified 02/22/25 14:01 ibuprofen (IBUPROFEN) Allergy Mild GI UPSET Verified 02/22/25 14:01 Review of Systems Sugical H&P ROS: Negative: Constitution, Cardiovascular, Respiratory, Neurological, Psychiatric, Hem-Onc, Allergic/Immunologic, Gastrointestinal, Genitourinary, Musculoskeletal, Integumentary, Endocrine and Eyes/Ears/Nose/Throat Exam Surgical H&P Exam: Not Evaluated: HEENT, Not Evaluated: Heart, Not Evaluated: Lungs, Not Evaluated: Extremities, Not Evaluated: Abdomen, Not Evaluated: Skin and Not Evaluated: Neurological Exam Comment: The patient is awake, alert, in no acute distress. Proposed surgical incision site is clean, dry, with no signs of recent trauma. Plan Diagnosis/Plan: Unchanged I have reviewed the history and physical and performed a pertinent physical examination on my patient. No changes have occurred unless specified. Plan remains the same, C4-5, C5-6 ACDF. Time Spent With Patient Time: Total time managing care of this patient today _14___ minutes.
[2025-03-22] MEDS: Lactated Ringers 1,000 ML 100 ML IVCONT (07:37)
--- NOTE | 2025-03-22 08:24 | PM.DS ---
DS: Providers Provider Date of Service: 03/22/25 Date of discharge: 03/22/25 Primary care physician: Unknown Physician DS: Summary Time Attestation Discharge Coordination Time (in mins): 17 Quality: Safe Use of Opioids Does Pt have an Active Cancer Diagnosis on the Problem List?: No Quality: Stroke Does the patient have a stroke diagnosis?: No Physical Exam Vital Signs: Vital Signs: Last Vital Signs Pulse 82 03/15/25 11:01 Resp 18 03/15/25 11:01 BP 129/58 L 03/15/25 11:01 Pulse Ox 98 03/15/25 11:01 O2 Del Method Room Air 03/15/25 11:01 BMI result Body Mass Index 28.2 DS: Data Data Completed and Pending Completed studies during hospitalization [Text1]: Procedures Replacement of Left Hip Joint with Ceramic Synthetic Substitute, Uncemented, Open Approach (01/29/21) Discharge Plan Discharge Patient Disposition: Home, Self-Care Referrals: Physician,Unknown J [Primary Care Provider, Medical] - 1 Week Discharge Medications: New oxycodone 5 mg tablet 5 mg PO Q6H PRN (Reason: pain) Qty: 20 0RF Rx Instructions: Partial Fill upon patient request. Continued oxcarbazepine 600 mg tablet 600 mg PO BID lamotrigine 200 mg tablet 200 mg PO BID zolpidem 10 mg tablet 1 tab PO BEDTIME quetiapine 50 mg tablet 50 mg PO BEDTIME gabapentin 600 mg tablet 300 mg PO TID omeprazole 20 mg capsule,delayed release(DR/EC) 1 cap PO BEDTIME cholecalciferol (vitamin D3) [Vitamin D3] 25 mcg (1,000 unit) capsule 1 cap PO DAILY sumatriptan succinate 50 mg tablet 50 mg PO DAILY PRN (Reason: Migraine Headache) lidocaine 5 % adhesive patch,medicated 1 patch topical DAILY PRN (Reason: Pain (Scale Score 1-3)) acetaminophen 325 mg Tablet 650 mg PO Q6H PRN (Reason: Pain, Mild (Pain Scale 1-3)) 30 Days Qty: 240 0RF albuterol sulfate 2.5 mg /3 mL (0.083 %) solution for nebulization 2.5 mg inhalation QID PRN (Reason: Shortness Of Breath) albuterol sulfate [Ventolin HFA] 90 mcg/actuation Hfa Aerosol Inhaler 2 puff INHALATION Q6H PRN (Reason: Shortness Of Breath) alprazolam [Xanax] 0.5 mg tablet 0.5 mg PO QID lisinopril 10 mg tablet 10 mg PO BEDTIME atorvastatin 40 mg tablet 40 mg PO BEDTIME cyclobenzaprine 10 mg tablet 10 mg PO DAILY PRN (Reason: muscle pain) lidocaine-prilocaine 2.5-2.5 % cream 1 appl topical DAILY PRN (Reason: Pain) Zepbound 7.5 mg/0.5 mL pen injector 7.5 mg subcut QWEEK Rx Instructions: takes on Sundays diclofenac sodium 75 mg tablet,delayed release (DR/EC) 75 mg PO BID PRN (Reason: Pain) Discharge Orders: Discharge Order (Routine); Ordered 03/22/25 Ordered By: Rm Lui Diet: Advance to usual diet Activity on Discharge: As tolerated Activity Restrictions/Additional Instructions: After your spinal surgery we ask you to observe the following restrictions/guidelines: Activity: It is normal to feel some discomfort as you increase your activity, but that will improve with time. We ask you avoid heavy lifting or acitivities that cause pain. As a general rule, 8lbs is a safe limit for lifting right after surgery. Walk as much as you feel comfortable but not to exhaustion. You will feel extra tired the first few days after surgery. Stay well hydrated. It is OK to walk up and down stairs You may return to driving when you are off narcotics (such as vicodin, oxycodone, dilaudid, etc), and you are back to normal functional capacity. If you have any concerns please check with office before driving. Return to work is specific to each patient and each surgery, so please speak with your doctor/PA at first follow up. Please bring paperwork such as FMLA at that time if you need it filled out. Medications: Please be advised that you are currently taking 3 narcotic medications (Zolpidem, Hydrocodone and Xanax) and were prescribed a short supply of additional narcotic pain control medication ONLY FOR BREAKTHROUGH PAIN. Taking additional narcotic pain medication alongside these medications can increase the overall sedation / effect from these medications. Take them only as needed and reduce dose / skip doses of narcotic pain medication if taking close together with your currently prescribed narcotics (Zolpidem, Hydrocodone and Xanax). We recommend you take 500mg Tylenol every 4 hours for the first week after surgery, if you do not have any liver issues and can tolerate this medication. Do not exceed 4,000mg daily. We also recommend you take Ibuprofen 600mg every 8 hours for the first week after surgery starting on post op day 1, ?if you do not have any kidney or sugar control issues and can tolerate this medication. Do not exceed 2,000mg daily. We will give you a short supply of narcotics after surgery (usually one weeks worth). If you need more please call the office but do not use more than prescribed. You will need to give our office 48 hours notice if you need narcotics refilled and we do not fill narcotics on weekends or evenings. If you are on a narcotic, it is a good idea to take a stool softener such as colace or senna to avoid constipation If you take blood thinner such as aspirin, Plavix, Coumadin, Effient, Eliquis etc for conditions such as Afib, DVT, Pulmonary embolus, coronary disease, stents etc please speak with your surgeon about specific details as to when you can resume these medications. You can resume NSAIDs on post op day 1 (eg: Motrin, Naproxen, etc). Follow up: Please call the office, , after surgery to arrange a 3 week follow up for wound check. Wound Care: You may remove your dressing on the first day after surgery. ?You may ?leave open to air. Please do not remove the steri strips underneath. they will fall off on their own in one week. IT IS NORMAL FOR THE WOUND TO OOZE OR BE BLOODY FOR A FEW DAYS AFTER SURGERY. ?IF THIS HAPPENS JUST PLACE NEW DRESSING OVER IT TO AVOID STAINING CLOTHES. You may shower on post op day # 1 We ask that you do not let the water soak the wound. If it does get wet, just towel dry lightly. Please do not scrub your incision or place any type of chemical/ointment on the wound. No tub baths, pools or jacuzzis for one month. If you have any leaking or redness from your wound, or fevers, please call the office. Print Language: Other
--- NOTE | 2025-03-22 08:27 | HO.ANESPROP2 ---
Documented by User: Minoo Peters NP 03/20/25 08:39 HPI - Anesthesia Eval Consult details Narrative: 59yo F for Ant Cerv Discectomy w/ fusion, 03/22/25 No recent illness No CP. SOB at baseline d/t COPD/smoking. Able to walk 100 yards without stopping TIA: 2020, some forgetfulness COPD: Active smoker, follows PCP, prn albuterol only using a couple times a week GERD: ppi controls Anesthesia Pre-Procedure Meds Is the patient on any of the following meds?: GLP1/DPP4 PMFSH Active Problems Active Problems: All Active Problems Left shoulder pain (Acute) Cervical radiculopathy (Acute) Patellofemoral arthritis of right knee (Acute) Chronic pain syndrome (Acute) Postlaminectomy syndrome, lumbar (Acute) Sacroiliac joint dysfunction of both sides (Acute) Sacroiliitis (Acute) History of right hip replacement (Acute) History of left hip replacement (Acute) Back pain of lumbar region with sciatica (Acute) Cervical high risk HPV (human papillomavirus) test positive (Acute) Back pain (Acute) S/P total left hip arthroplasty (Acute) Primary osteoarthritis of left hip (Acute) Chronic headaches (Acute) Nicotine dependence, cigarettes, uncomplicated (Acute ~1978) Personal history of nicotine dependence (Acute ~1978) COPD (chronic obstructive pulmonary disease) (Acute) Osteoarthritis of left hip (Acute) Past Medical History Medical History GERD (gastroesophageal reflux disease) Neck pain Low back pain Anxiety and depression History of panic attacks Chronic headaches Uses roller walker Nicotine dependence, cigarettes, uncomplicated (~1978) Hyperlipidemia History of TIA (transient ischemic attack) (~2019) Personal history of nicotine dependence (~1978) COPD (chronic obstructive pulmonary disease) Osteoarthritis of left hip Hypertension Family History Family history of problems with anesthesia: No Surgical History Surgical History H/O colonoscopy Hx of bilateral hip replacements History of lumbar fusion History of appendectomy (~02/13/02) History of Problems with Anesthesia: No Social History Social History Household Members: None Household Members Other:: daughter Housing: Apartment Are you a primary early breastfeeding care specialist to a significant other at home: No Do you presently have visiting nurse or other home services: Yes (daughter is VIBRATOR OPERATOR /has transportation services) Comment: patient refused bed alarm Patient Tobacco Use Status: Current everyday Tobacco user Tobacco use type: Cigarette Cigarette Packs Per Day: 1 Cigarettes Per Day: 10 Years Smoked: 44 Second Hand Smoke Exposure: No Use of substances other than those prescribed or required for medical reasons: No Have you been hit, kicked, punched, or otherwise hurt by someone within the past year? If so, by whom?: No Spiritual Healthcare Practices: no Sabianism Healthcare Practices: no Cultural Healthcare Practices: no Are you DNR?: No Advance Directives on File: No Current occupational status: unemployed Current occupation: Right Handed Meds Allergies Allergy/AdvReac Type Severity Reaction Status Date / Time aspirin (ASPIRIN) Allergy Mild GI UPSET Verified 03/22/25 07:49 ibuprofen (IBUPROFEN) Allergy Mild GI UPSET Verified 03/22/25 07:49 Home Medications ?Medication ?Instructions ?Recorded ?Confirmed ?Last Taken ?Type alprazolam 0.5 mg tablet (Xanax) 0.5 mg PO QID 07/23/20 03/22/25 01/28/21 History lisinopril 10 mg tablet 10 mg PO BEDTIME 07/23/20 03/22/25 01/28/21 History oxcarbazepine 600 mg tablet 600 mg PO BID 01/16/21 03/22/25 01/28/21 History lamotrigine 200 mg tablet 200 mg PO BID 01/23/21 03/22/25 01/28/21 History cholecalciferol (vitamin D3) 25 1 cap PO DAILY 01/29/21 03/22/25 01/28/21 History mcg (1,000 unit) capsule (Vitamin D3) gabapentin 600 mg tablet 300 mg PO TID 01/29/21 03/22/25 01/28/21 History lidocaine 5 % topical patch 1 patch topical DAILY PRN Pain 01/29/21 03/22/25 Unknown History (Scale Score 1-3) omeprazole 20 mg capsule,delayed 1 cap PO BEDTIME 01/29/21 03/22/25 01/28/21 History release quetiapine 50 mg tablet 50 mg PO BEDTIME 01/29/21 03/22/25 01/28/21 History 50 mg sumatriptan succinate 50 mg tablet 50 mg PO DAILY PRN Migraine 01/29/21 03/22/25 01/28/21 History Headache zolpidem 10 mg tablet 1 tab PO BEDTIME 01/29/21 03/22/25 Unknown History atorvastatin 40 mg tablet 40 mg PO BEDTIME 10/08/23 03/22/25 Unknown History cyclobenzaprine 10 mg tablet 10 mg PO DAILY PRN muscle pain 10/08/23 03/22/25 Unknown History lidocaine-prilocaine 2.5 %-2.5 % 1 appl topical DAILY PRN Pain 10/08/23 03/22/25 Unknown History topical cream diclofenac sodium 75 mg 75 mg PO BID PRN Pain 04/25/24 03/22/25 03/08/25 History tablet,delayed release tirzepatide (weight loss) 7.5 7.5 mg subcut QWEEK weight loss 10/20/24 03/22/25 03/08/25 History mg/0.5 mL subcutaneous pen injector (Zepbound) albuterol sulfate 2.5 mg/3 mL 2.5 mg inhalation QID PRN 03/08/25 03/22/25 Unknown History (0.083 %) solution for nebulization Shortness Of Breath albuterol sulfate 90 mcg/actuation 2 puff inhalation Q6H PRN 03/08/25 03/22/25 Unknown History aerosol inhaler (Ventolin HFA) Shortness Of Breath Exam Height,Weight and Vital Signs: Height 5 ft 6 in Weight 80.3 kg Last Vital Signs Pulse 82 03/15/25 11:01 Resp 18 03/15/25 11:01 BP 129/58 L 03/15/25 11:01 Pulse Ox 98 03/15/25 11:01 O2 Del Method Room Air 03/15/25 11:01 Pertinent Lab Results Pertinent Lab Results: Laboratory Tests 12/26/24 10:08 WBC 8.3 Hgb 11.4 L Hct 35.8 L Plt Count 281 Sodium 144 Potassium 4.6 Chloride 111 H Carbon Dioxide 23 BUN 15 Creatinine 0.98 Narrative Narrative: EKG 02/2025 Vent. Rate : 74 BPM Atrial Rate : 74 BPM P-R Int : 152 ms QRS Dur : 84 ms QT Int : 382 ms P-R-T Axes : 48 14 36 degrees QTcB Int : 424 ms Normal sinus rhythm Possible Left atrial enlargement Borderline ECG When compared with ECG of 03-Mar-2022 11:24, No significant change was found Airway Mallampati Class: III TM Dist: >3cm Neck ROM: Limited Loose/Missing/Broken Teeth: Yes (missing throughout, caps on upper stable) Heart: RRR Lungs: CTAB Assessment and Plan Assessment Anesthesia Assessment: Anesthesia Plan Discussed, Smoking Cess. Discussed and PAT Visit Final Anesthetic Review Family History of Problems with Anesthesia: No History of Problems with Anesthesia: No Documented by User: Monse Millan DO 03/22/25 08:29 HPI - Anesthesia Eval Anesthesia Pre-Procedure Meds Is the patient on any of the following meds?: GLP1/DPP4 PMFSH Past Medical History Medical History GERD (gastroesophageal reflux disease) Neck pain Low back pain Anxiety and depression History of panic attacks Chronic headaches Uses roller walker Nicotine dependence, cigarettes, uncomplicated (~1978) Hyperlipidemia History of TIA (transient ischemic attack) (~2019) Personal history of nicotine dependence (~1978) COPD (chronic obstructive pulmonary disease) Osteoarthritis of left hip Hypertension Family History Family history of problems with anesthesia: No Surgical History Surgical History H/O colonoscopy Hx of bilateral hip replacements History of lumbar fusion History of appendectomy (~02/13/02) History of Problems with Anesthesia: No Social History Social History Household Members: None Household Members Other:: daughter Housing: Apartment Are you a primary early breastfeeding care specialist to a significant other at home: No Do you presently have visiting nurse or other home services: Yes (daughter is VIBRATOR OPERATOR /has transportation services) Comment: patient refused bed alarm Patient Tobacco Use Status: Current everyday Tobacco user Tobacco use type: Cigarette Cigarette Packs Per Day: 1 Cigarettes Per Day: 10 Years Smoked: 44 Second Hand Smoke Exposure: No Use of substances other than those prescribed or required for medical reasons: No Have you been hit, kicked, punched, or otherwise hurt by someone within the past year? If so, by whom?: No Spiritual Healthcare Practices: no Sabianism Healthcare Practices: no Cultural Healthcare Practices: no Are you DNR?: No Advance Directives on File: No Current occupational status: unemployed Current occupation: Right Handed Meds Allergies Allergy/AdvReac Type Severity Reaction Status Date / Time aspirin (ASPIRIN) Allergy Mild GI UPSET Verified 03/22/25 07:49 ibuprofen (IBUPROFEN) Allergy Mild GI UPSET Verified 03/22/25 07:49 Home Medications ?Medication ?Instructions ?Recorded ?Confirmed ?Last Taken ?Type alprazolam 0.5 mg tablet (Xanax) 0.5 mg PO QID 07/23/20 03/22/25 01/28/21 History lisinopril 10 mg tablet 10 mg PO BEDTIME 07/23/20 03/22/25 01/28/21 History oxcarbazepine 600 mg tablet 600 mg PO BID 01/16/21 03/22/25 01/28/21 History lamotrigine 200 mg tablet 200 mg PO BID 01/23/21 03/22/25 01/28/21 History cholecalciferol (vitamin D3) 25 1 cap PO DAILY 01/29/21 03/22/25 01/28/21 History mcg (1,000 unit) capsule (Vitamin D3) gabapentin 600 mg tablet 300 mg PO TID 01/29/21 03/22/25 01/28/21 History lidocaine 5 % topical patch 1 patch topical DAILY PRN Pain 01/29/21 03/22/25 Unknown History (Scale Score 1-3) omeprazole 20 mg capsule,delayed 1 cap PO BEDTIME 01/29/21 03/22/25 01/28/21 History release quetiapine 50 mg tablet 50 mg PO BEDTIME 01/29/21 03/22/25 01/28/21 History 50 mg sumatriptan succinate 50 mg tablet 50 mg PO DAILY PRN Migraine 01/29/21 03/22/25 01/28/21 History Headache zolpidem 10 mg tablet 1 tab PO BEDTIME 01/29/21 03/22/25 Unknown History atorvastatin 40 mg tablet 40 mg PO BEDTIME 10/08/23 03/22/25 Unknown History cyclobenzaprine 10 mg tablet 10 mg PO DAILY PRN muscle pain 10/08/23 03/22/25 Unknown History lidocaine-prilocaine 2.5 %-2.5 % 1 appl topical DAILY PRN Pain 10/08/23 03/22/25 Unknown History topical cream diclofenac sodium 75 mg 75 mg PO BID PRN Pain 04/25/24 03/22/25 03/08/25 History tablet,delayed release tirzepatide (weight loss) 7.5 7.5 mg subcut QWEEK weight loss 10/20/24 03/22/25 03/08/25 History mg/0.5 mL subcutaneous pen injector (Zepbound) albuterol sulfate 2.5 mg/3 mL 2.5 mg inhalation QID PRN 03/08/25 03/22/25 Unknown History (0.083 %) solution for nebulization Shortness Of Breath albuterol sulfate 90 mcg/actuation 2 puff inhalation Q6H PRN 03/08/25 03/22/25 Unknown History aerosol inhaler (Ventolin HFA) Shortness Of Breath Exam Exam Date and Time: 03/22/25 0827 Height,Weight and Vital Signs: Height 5 ft 6 in Weight 80.3 kg Last Vital Signs Pulse 82 03/15/25 11:01 Resp 18 03/15/25 11:01 BP 129/58 L 03/15/25 11:01 Pulse Ox 98 03/15/25 11:01 O2 Del Method Room Air 03/15/25 11:01 Vital Signs Pulse Rate 82 03/15/25 11:01 Respiratory Rate 18 03/15/25 11:01 Blood Pressure 129/58 L 03/15/25 11:01 Pulse Oximetry 98 03/15/25 11:01 Oxygen Delivery Method Room Air 03/15/25 11:01 Pulse Rate 82 03/15/25 11:01 Respiratory Rate 18 03/15/25 11:01 Blood Pressure 129/58 L 03/15/25 11:01 Pulse Oximetry 98 03/15/25 11:01 Oxygen Delivery Method Room Air 03/15/25 11:01 Airway Mallampati Class: III TM Dist: >3cm Neck ROM: Limited Loose/Missing/Broken Teeth: Yes (multiple missing teeth) Heart: S1S2 Assessment and Plan Assessment Anesthesia Assessment: Anesthesia Plan Discussed and Chart Reviewed Final Anesthetic Review Family History of Problems with Anesthesia: No History of Problems with Anesthesia: No NPO: Yes ASA Class: III Final Preanesthetic Review: No Changes in Pt Med Stat, Meds/Allgs Chart Reviewed, Consent Obtained/Reviewed and Anes Risks/Benef Reviewed Patient Risk: Intermediate Procedure Risk: Intermediate Anesthetic Plan Anesthetic Plan: GA and Agree w/ Assess. and Plan Disposition: Standard PACU
--- NOTE | 2025-03-22 10:22 | W.PM.OPN ---
Operative Note Operative Note Date of Service: 03/22/25 Narrative: Preoperative Diagnosis: Cervical radiculopathy, left Procedure: C4-C5, C5-C6 Anterior discectomy, arthrodesis and implantation cage ; C4-C6 anterior instrumentation ; local autograft; microscope Informed Consent was obtained for this operation. I have explained the nature, purpose and benefits of the operation. I have discussed the risks and benefit of the operation including possible complications or adverse events with patient/family. Alternative(s) were discussed with the patient with their relative benefits and risks as well as the consequences of not accepting the operation were included in obtaining consent. Surgeon: EVELYN BARKER MD, PHD Procedure Assisted By: Rm GERBER Description of Procedure: This 59-year-old female suffering from left-sided shoulder pain and left arm pain. MRI shows significant degenerative disc disease C4-5 and C5-6 with compression of the exiting C5 and C6 nerve roots. The patient was offered an anterior diskectomy and fusion of the levels. The procedure complications were explained. The patient was consented. The patient was brought to the operating room and endotracheally intubated. The patient was put in supine position with slight extension of the neck. Prep and drape was done followed by timeout. A mid cervical incision was made followed by opening of the platysma. The prevertebral fascia was reached following the natural planes while the physician front office medical assistant provided manual retraction. The prevertebral fascia was opened to expose the disc space. A spinal needle was placed in the disk space to confirm the correct level with xray. The longus colli muscles were released bilaterally and a self retaining retractor was inserted. An initial diskectomy was done of C5-6 and C4-C5. Two [place] pins were placed in the C4 and C5 vertebral bodies and distraction was give over the interspace. The discectomy was completed toward the posterior annulus of the disc. The microscope was brought in. The remainder of the discectomy was completed. The posterior ligament was opened and resected to expose the underlying dura. Large osteophytes were resected from the body of C4 and C5 to decompress the underlying spinal cord and saved for autograft. Bilateral foraminotomies were done. Severe bilateral foraminal stenosis was present. The endplates were prepared after which a 6 mm cage filled with autograft was inserted into the disc space. A separate attached plate was locked down with 2 x 14 mm screws as anterior instrumentation. Then [place] pin from the body of C4 was removed and inserted into the body of C6. Distraction was giving of the C5-6 interspace. The diskectomy was completed towards the posterior annulus. The posterior longitudinal ligament was opened and resected to expose the underlying dura. Large osteophytes were removed from the body of C5 and C6 saved for autograft. Bilateral foraminotomies were done. Again severe bilateral foraminal stenosis was encountered and released. The endplates were prepared after which a 6 mm cage filled with autograft was inserted into the disc space. A separate attached plate was locked down with 2 x 14 mm screws as anterior instrumentation. Final x-rays in AP and lateral projection showed a satisfactory position of the implants and anterior instrumentation. The physician front office medical assistant took over. The [place] pin was removed. Hemostasis was done. He closed the incision in 2 layers with a 3-0 Vicryl. Steri-Strips used to approximate incision. An OpSite with Tegaderm was used to cover the incision. All sponge and needle counts were correct. Patient was extubated and transported in stable is to recovery room. Anesthesia: General Estimated Blood Loss (ml): 20 Duration of Surgery: 70 minutes Postoperative Plan: Discharge home Complications: None
[2025-03-22] MEDS: oxyCODONE HCl Immed Release 5 MG TABLET PO (11:30)
== END 2025-03-22 12:56 | disposition home or self-care (01) ==
PROVIDERS: Visit Provider Neurological Surgery
PROC: (CPT 22551; principal; 2025-03-22 09:30)
DX: M54.12 Radiculopathy, cervical region (principal); M25.512 Pain in left shoulder; I10 Essential (primary) hypertension; E78.5 Hyperlipidemia, unspecified; K21.9 Gastro-esophageal reflux disease without esophagitis; J44.9 Chronic obstructive pulmonary disease, unspecified; Z86.73 Personal history of transient ischemic attack (TIA), and cerebral infarction without residual deficits; Z79.85 Long-term (current) use of injectable non-insulin antidiabetic drugs; Z79.899 Other long term (current) drug therapy; Z99.89 Dependence on other enabling machines and devices; Z88.6 Allergy status to analgesic agent; F17.210 Nicotine dependence, cigarettes, uncomplicated
CPT/HCPCS: 22551; 22552; 22853 ×2; 22845; 20936; 93005; C1713; C1889; J0131; J0690; J1100; J1171; J2003; J2250; J2405; J2704; J3010

== ENCOUNTER → 2025-03-22 07:00 | Outpatient (BNV) | payer MEDICAID, SELFPAY | PROVIDERS: Visit Provider Neurological Surgery | DX: M54.12 Radiculopathy, cervical region (principal) | CPT/HCPCS: 20936; 22551; 22552; 22845; 22853; 99499 ==

== ENCOUNTER 2025-03-30 15:31 | Outpatient (AMB) | payer MEDICAID, SELFPAY ==
--- NOTE | 2025-03-30 15:32 | MHC.OFFVIS ---
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 Myrick. She reports that healing is complicated. She reports severe pain in the neck and lots of bruising surrounding the wound. She stated that she started to smoke cigarettes up to half a pack again. I explained to her that unfortunately the sacroiliac joint fusion will not be effective if she continues smoking. I recommended her to decrease the amount of cigarettes a day she would smoke to 2 cigarettes a day. I would recommend her to completely stop smoking for 13 weeks after the implantation of the Nevro SI joint fusion element will be performed. I recommended her to go to primary care physician and speak with primary care physician about Chantix. Prior: No payment improvement after therapeutic sacroiliac joint injection. Most likely it is secondary to very poor synovial lining of the patient in the sacroiliac joints. the results of diagnostic bilateral sacroiliac joint injection. She reported pain 9.5/10 before the injection. She also reported 0 pain immediately after the procedure 0 pain 1 hour after procedure and 3/10 pain for the 2nd, 3rd and 4th our after the procedure this is 100% improvement of the pain. 5 hours after the procedure her pain was 4/10 so still 70% improvement. 6 hours after the procedure her pain became 5/10. The pain reduction remain at this low level about 50% improvement for 10 days. She also reported improved mobility during this time and better activities of daily living. I offered the patient to perform therapeutic bilateral sacroiliac joint injection with steroids. Prior:multiple pain generators she reports consistent pain in bilateral shoulder posterior neck bilateral hips bilateral perm paramedian paraspinal areas pain in bilateral groins, pain with standing, pain with sitting down, she reports laying down her pain slightly better prolonged sitting and walking aggravate her pain. . She is using walker for ambulation. She had a surgery surgery with Dr. Myrick to help her pain. In the past she had bilateral total hip replacement to help her pain in the hip however she admits that pain is as painful as it was before hip replacement. She had multiple images available including x-ray of the lumbar spine on which L5-S1 fusion is demonstrated without significant pathological changes and with proper hardware position. She also had x-ray of the pelvis which demonstrated appropriate image of the pelvis with bilateral total hip replaced. She had injections long time ago in [facility] as well as with [facility]. In fact she is scheduled for some sort of the injection with [facility] again. This injection will be addressing pain in her neck. The nature of the injection is unknown to me. She is being prescribed by [facility] hydrocodone/acetaminophen 5/325. She is also prescribed cyclobenzaprine to control her pain and help her to sleep at night, she tried NSAIDs with minimal effect including diclofenac sodium. Her primary care physician recommended her to come to this office with the request of spinal cord stimulation. Patient is very leery about spinal cord stimulator and yet she is willing to discuss it with me. Her past medical history significant for headaches mini stroke 4 year ago history of fatigue dizziness and fainting history of anxiety bipolar depression COPD shortness of breath and osteoarthritis. Her past surgical history is significant for to bilateral hip replacements, as well as transforaminal fusion by Dr. Prabhakar. She smokes cigarettes 1 pack per day for 14 years she denies drinking alcohol drinks coffee but not soda and she denies recreational drugs. [facility] Medical History GERD (gastroesophageal reflux disease) Neck pain Low back pain Anxiety and depression History of panic attacks Chronic headaches Uses roller walker Nicotine dependence, cigarettes, uncomplicated (~1978) Hyperlipidemia History of TIA (transient ischemic attack) (~2019) Personal history of nicotine dependence (~1978) COPD (chronic obstructive pulmonary disease) Osteoarthritis of left hip Hypertension Surgical History H/O colonoscopy Hx of bilateral hip replacements History of lumbar fusion History of appendectomy (~02/13/02) Social History Household Members: None Household Members Other:: daughter Housing: Apartment Are you a primary critical care cns to a significant other at home: No Do you presently have visiting nurse or other home services: Yes (daughter is CEMENT FINISHER /has transportation services) Comment: patient refused bed alarm Patient Tobacco Use Status: Current everyday Tobacco user Tobacco use type: Cigarette Cigarette Packs Per Day: 1 Cigarettes Per Day: 10 Years Smoked: 44 Second Hand Smoke Exposure: No Current occupational status: unemployed Current occupation: Right Handed Female Reproductive History Menstrual Age of Menarche: 13 Review of Systems Const All systems reviewed & are unremarkable except as noted in HPI and below ENT Reports Normal hearing present Neuro Reports Normal hearing present, Denies Abnormal speech present, Denies confusion and Denies Sensory deficit (Neuro) Psych Denies confusion Physical Exam Vital Signs: Last Vital Signs Pulse 98 03/30/25 15:34 Resp 16 03/30/25 15:34 BP 143/80 H 03/30/25 15:34 Pulse Ox 99 03/30/25 15:34 Oxygen Delivery Method Room Air 03/30/25 15:34 BMI result Body Mass Index 28.9 Const General: no acute distress; No confusion Nutritional Appearance: obese morbidly obese Orientation/consciousness: patient oriented x3 and No confusion Eyes General: appearance normal, both eyes and all related structures Pupils: Equal, round and reactive pupils present EOM: EOMs intact bilaterally Neck Neck: Yes full ROM Chest Chest palpation & inspection: normal inspection of the chest Resp Effort & Inspection: normal respiratory effort, able to speak in complete sentences, normal respiratory pattern, no audible wheezes and no cough Cardio Jugular venous distension: no JVD GI Inspection: Yes normal to inspection Back/Spine/Pelvis Other: Able to stand on bilateral tiptoes in bilateral heels without significant difficulty. Unable to flex herself forward or backwards because of severe pain. Attempt to perform Tiago test is demonstrating severe discomfort on lower back bilaterally. Pelvic distraction and pelvic compression tests causing mild discomfort in projection of the sacroiliac joints as well. Thigh thrust test and Stinchfield tests are also positive bilaterally. Valsalva maneuver is negative for pain increase. Fourteen finger test is positive bilaterally. Neuro General: patient oriented x3, gait normal and No confusion Cranial nerves: Yes CN's II-XII intact bilaterally, Yes Equal, round and reactive pupils present, Yes Normal hearing present and Yes Ability to bilaterally elevate shoulders present Speech: No Abnormal speech present Gait exam (Neuro): Normal gait present Motor exam (neuro): 5/5 motor strength present throughout Sensory Exam: No Sensory deficit (Neuro) Extrem General: No pedal edema Psych Speech and movement: Normal speech and movement present Affect: normal affect Attitude: cooperative Thought process: Normal thought process present Thought content: Normal thought content present Insight: Good insight present (Psych) Judgement: Good judgement present (Psych) Assessment & Plan Assessment & Plan (1) Sacroiliac joint dysfunction of both sides: Code(s): M53.3 - Sacrococcygeal disorders, not elsewhere classified Category: Medical (2) Sacroiliitis: Code(s): M46.1 - Sacroiliitis, not elsewhere classified Category: Medical (3) Postlaminectomy syndrome, lumbar: Code(s): M96.1 - Postlaminectomy syndrome, not elsewhere classified Category: Medical (4) Chronic pain syndrome: Code(s): G89.4 - Chronic pain syndrome Category: Medical Plan Loree is very pleasant 59 years old suffering from postlaminectomy syndrome. Dr. Prabhakar operated on this patient. Her pain remained at very high levels. We tried SCS and I DDD modalities on this patient. She has a all OUD and therefore we tried only non opioid medications. Last time she came for diagnostic bilateral SI joint injection and this resulted in very impressive pain reduction. However unfortunately after therapeutic sacroiliac joint injection her pain got only aggravated. With spinal cord stimulator in place I am not sure we can perform peripheral nerve stimulation of sacroiliac joint innervation. I offered the patient the sacroiliac joint fusion to help her pain. She agreed to go for the procedure. However she went for surgery with Dr. Prabhakar on her cervical spine, and she increased her smoking to half a pack a day. This is an acceptable for SI joint fusion. I recommended her to start working with her primary care physician to decrease her smoking to at the most 2 cigarettes a day before the procedure and stopped smoking completely for 13 weeks after the procedure. Only then I can not consider the procedure for her sacroiliac joint pain. I also recommended her to quit smoking without help of nicotine patch on Nicorette gum. Those nicotine containing products a good for weaning patient from tobacco tars but it is not good for healing since nicotine will continue to constrict the blood vessels. Chantix would be the best for this patient to stop smoking. Coding Level of Care Code Est Pt Level 3 (33851) Diagnoses Sacroiliac joint dysfunction of both sides M53.3 Sacroiliitis M46.1 Postlaminectomy syndrome, lumbar M96.1 Chronic pain syndrome G89.4
[2025-03-30 15:34] VITALS: BP 143/80; PULSE 98; RESP 16; O2SAT 99; BMI 28.9
--- OUTSIDE RECORDS SUMMARY | 2025-03-30 23:02 | XMS_ITS | Encounter Summary ---
Author Organization [employer] Address [address] [place] [address] 7t [place] [address] Care Team Providers Care Public Aid Eligibility Assistant Name Role Phone Nicky Thibodeaux MD Primary Care Provider [phone]- [phone] Wu Manzo MD Unavailable Feroz Ascencio MD Unavailable [phone] Encounter Details Date Type Department Care Team (Late Contact Info) Description 05/22/2022 Orders Only [facility] [address] [place] [address] Nereida Horner LPN Social History Tobacco Use [...] Department Care Team (Late Contact Info) Description 05/15/2025 2:00 PM EST Office Visit [facility] [address] [place] [address] Rafita, Shannan, OD [address] [place] [address] documented as of this encounter Visit Diagnoses Not on filedocumented in this encounter Care Teams Public Aid Eligibility Assistant Relationship Specialty Start Date End Date Nicky Thibodeaux MD [address] [place] [address] PCP - General Family Medicine 04/20/18 Wu Manzo MD [address] [place] [address] Pain Medicine 03/29/24 Feroz Ascencio MD [address] [place] [phone] Orthopaedic Surgery 06/15/24 Rolanda Tirado Explosive Operator SupervisorIntelligence Operations Specialist 06/25/23 TRE[facility]URE [facility] 04/26/24 documented as of this encounter
--- OUTSIDE RECORDS SUMMARY | 2025-03-30 23:02 | XMS_ITS | Encounter Summary ---
Author Organization [employer] Address [address] [facility] 7t [place] [address] Care Team Providers Care Foam Machine Operator Name Role Phone Nicky Thibodeaux MD Primary Care Provider [phone] Wu Manzo MD Unavailable Feroz Ascencio MD Unavailable [phone] Reason for Visit * Reason Comments Med Refill Encounter Details Date Type Department Care Team (Late st Contact Info) Description 04/09/2023 Refill [facility] [address] [place] [address] Nicky Thibodeaux MD [address] [place] [address] Pain Social History Tobacco Use Types Packs/Day [...] Care Team (Late st Contact Info) Description 05/15/2025 2:00 PM EST Office Visit [facility] [address] [place] [address] Rafita, Shannan, OD [address] [place] [address] documented as of this encounter Visit Diagnoses Diagnosis Pain Generalized pain documented in this encounter Additional Health Concerns Assessment Noted Time PHQ-9 Depression Total Score: 22 023 2:09 PM EDT documented as of this encounter Care Teams Foam Machine Operator Relationship Specialty Start Date End Date Nicky Thibodeaux MD [address] [place] [address] PCP - General Family Medicine 04/20/18 Wu Manzo MD [address] [place] [address] Pain Medicine 03/29/24 Feroz Ascencio MD [address] [place] [address] [phone] Orthopaedic Surgery 06/15/24 Rolanda Tirado Sweatband PerforatorMotel Manager 06/25/23 Latia Guardado PA-C [facility] 04/26/24 documented as of this encounter
--- OUTSIDE RECORDS SUMMARY | 2025-03-30 23:02 | XMS_ITS | Encounter Summary ---
Author Organization [employer] Address [address] [place] [address] 7t [place] [address] Care Team Providers Care Driver/Merchandiser Name Role Phone Nicky Thibodeaux MD Primary Care Provider [phone] Wu Manzo MD Unavailable Feroz Ascencio MD Unavailable [phone] Reason for Visit * Reason Comments Med Refill Encounter Details Date Type Department Care Team (Late Contact Info) Description 2022 Refill [facility] [address] [place] [address] Krystin Frederick FNP Chronic migraine without aura [...] Description 05/15/2025 2:00 PM EST Office Visit [facility] [address] [place], [place] [phone] Shannan Eller, OD [address] [place] [address] documented as of this encounter Visit Diagnoses Diagnosis Chronic migraine without aura without status migrainosus, not intractable documented in this encounter Care Teams Driver/Merchandiser Relationship Specialty Start Date End Date Nicky Thibodeaux MD [address] [place] [address] PCP - General Family Medicine 04/20/18 Wu Manzo MD [address] [place] [address] [address] [place] [address] Pain Medicine 03/29/24 Feroz Ascencio MD [address] [place] [phone] Orthopaedic Surgery 06/15/24 Rolanda Tirado Filler OperatorHome Theater Installer 06/25/23 [facility] 04/26/24 documented as of this encounter
--- OUTSIDE RECORDS SUMMARY | 2025-03-30 23:02 | XMS_ITS | Encounter Summary ---
Author Organization [employer] Address [address] [facility] [address] 7[address] [place] [address] Care Team Providers Care Bike Technician Name Role Phone Nicky Thibodeaux MD Primary Care Provider [phone] Wu Manzo MD Unavailable Feroz Ascencio MD Unavailable [phone] Reason for Visit * Reason Onset Date Comments Med Refill 04/29/2023 Encounter Details Date Type Department Care Team (Late st Contact Info) Description 04/29/[address] [facility] [address] [place] [address] Nicky Thibodeaux MD [address] [place] [address] Med Refill Social History Tobacco Use Types [...] tablet To be sent to: [facility]/pharmacy [address] [place] [address] documented in this encounter Plan of Treatment Upcoming Encounters Date Type Department Care Team (Late st Contact Info) Description 05/15/2025 2:00 PM EST Office Visit [facility] [address] [place] [address] RafitaShannan polo, OD [address] [place] [address] documented as of this encounter Visit Diagnoses Not on filedocumented in this encounter Additional Health Concerns Assessment Noted Time PHQ-9 Depression Total Score: 22 023 2:09 PM EDT documented as of this encounter Care Teams Bike Technician Relationship Specialty Start Date End Date Nicky Thibodeaux MD [address] [place] [address] PCP - General Family Medicine 04/20/18 Wu Manzo MD [address] [place] [address] Pain Medicine 03/29/24 Feroz Ascencio MD [address] [place] [phone] Orthopaedic Surgery 06/15/24 Rolanda Tirado Computer Science ProfessorForm Tamper Operator 06/25/23 [facility] 04/26/24 documented as of this encounter
--- OUTSIDE RECORDS SUMMARY | 2025-03-30 23:02 | XMS_ITS | Encounter Summary ---
Author Organization [employer] Address [address] [facility] 7t [place] [address] Care Team Providers Care Bootmaker Name Role Phone Nicky Thibodeaux MD Primary Care Provider [phone]- [phone] Wu Manzo MD Unavailable Feroz Ascencio MD Unavailable Reason for Visit * Reason Comments Med Refill Encounter Details Date Type Department Care Team (Late st Contact Info) Description 05/19/2023 Refill [facility] [address] [place] [address] Nicky Thibodeaux MD [address] [place], [place] [phone] Asthma, unspecified asthma severity, unspecified whether complicated, [...] Description 05/15/2025 2:00 PM EST Office Visit [facility] OPT[facility] [address] [place] [address] Rafita, Shannan, OD [address] [place] [address] documented as of this encounter Visit Diagnoses Diagnosis Asthma, unspecified asthma severity, unspecified whether complicated, unspecified whether persistent documented in this encounter Additional Health Concerns Assessment Noted Time PHQ-9 Depression Total Score: 22 023 2:09 PM EDT documented as of this encounter Care Teams Bootmaker Relationship Specialty Start Date End Date Nicky Thibodeaux MD [address] [place] [address] PCP - General Family Medicine 04/20/18 Wu Manzo MD [address] [place] [address] Pain Medicine 03/29/24 Feroz Ascencio MD [address] [place] [address] [phone] Orthopaedic Surgery 06/15/24 Rolanda Tirado Rn InvasiveVp Marketing Services And Skin 06/25/23 Latia Guardado PA-C [facility] 04/26/24 documented as of this encounter
--- OUTSIDE RECORDS SUMMARY | 2025-03-30 23:02 | XMS_ITS | Encounter Summary ---
Author Organization [employer] Address [address] [facility] 7t [place] [address] Care Team Providers Care Dental Mold Maker Name Role Phone Simpson, Nicky CASTAÑEDA Primary Care Provider [phone]- [phone] Wu Manzo MD Unavailable Feroz Ascencio MD Unavailable [phone] Reason for Visit * Reason Comments Med Refill Encounter Details Date Type Department Care Team (Late st Contact Info) Description 04/29/2023 Refill [facility] [address] [place] [address] Chelsi Canseco ANP [address] [place] [address] Social History Tobacco Use Types Packs/Day Years [...] [facility] [address] [place] [address] RafitaShannan, OD [address] [place] [address] documented as of this encounter Visit Diagnoses Not on filedocumented in this encounter Additional Health Concerns Assessment Noted Time PHQ-9 Depression Total Score: 22 023 2:09 PM EDT documented as of this encounter Care Teams Dental Mold Maker Relationship Specialty Start Date End Date Nicky Thibodeaux MD [address] [place] [address] PCP - General Family Medicine 04/20/18 Wu Manzo MD [address] [place] [address] Pain Medicine 03/29/24 Feroz Ascencio MD [address] [place] [address] [phone] Orthopaedic Surgery 06/15/24 Rolanda Tirado Sole Leveling Machine OperatorCommunity Living Coach 06/25/23 Latia Guardado PA-C [facility] 04/26/24 documented as of this encounter
--- OUTSIDE RECORDS SUMMARY | 2025-03-30 23:02 | XMS_ITS | Encounter Summary ---
Author Organization [employer] Address [address] 7[address] [place] [address] Care Team Providers Care Strainer Cleaner Name Role Phone Nicky Thibodeaux MD Primary Care Provider [phone]- [phone] Wu Manzo MD Unavailable Feroz Ascencio MD Unavailable [phone] Encounter Details Date Type Department Care Team (Late st Contact Info) Description 03/11/2023 Abstract [facility] [address] [place], [place] [phone] Thuy Valenzuela Social History Tobacco Use Types [...] Description 05/15/2025 2:00 PM EST Office Visit [facility] OPTOMETRY [address] [place] [address] Rafita, Shannan, OD [address] [place] [address] documented as of this encounter Visit Diagnoses Not on filedocumented in this encounter Additional Health Concerns Assessment Noted Time PHQ-9 Depression Total Score: 22 023 2:09 PM EDT documented as of this encounter Care Teams Strainer Cleaner Relationship Specialty Start Date End Date Nicky Thibodeaux MD [address] [place] [address] PCP - General Family Medicine 04/20/18 Wu Manzo MD [address] [place] [address] Pain Medicine 03/29/24 Feroz Ascencio MD [address] [place] [address] [phone] Orthopaedic Surgery 06/15/24 Rolanda Tirado Promotional RepresentativeFlap Maker 06/25/23 Latia Guardado PA-C [facility] 04/26/24 documented as of this encounter
--- OUTSIDE RECORDS SUMMARY | 2025-03-30 23:03 | XMS_ITS | Encounter Summary ---
Author Organization [employer] Address [address] [facility] 7t [place] [address] Care Team Providers Care Hand Crocheter Name Role Phone Nicky Thibodeaux MD Primary Care Provider [phone] Wu Manzo MD Unavailable Feroz Ascencio MD Unavailable [phone] Encounter Details Date Type Department Care Team (Late st Contact Info) Description 05/05/2022 Abstract [facility] [address] [place] [address] Nicky Thibodeaux MD [address] [place] [address] Social History Tobacco Use Types Packs/Day Years [...] Description 05/15/2025 2:00 PM EST Office Visit [facility] OPTOM[facility] [address] [place], [place] [phone] Shannan Eller OD [address] [place], [place] [phone] documented as of this encounter Procedures Procedure Name Priority Date/Time Associated Diagnosis Comments COLPOSCOPY Routine 09/11/2021 12:00 AM EDT PAP SMEAR Routine 08/02/2021 12:00 AM EDT MAMMOGRAPHY Routine 10/29/2020 COLONOSCOPY Routine 12/11/2015 documented in this encounter Results * Colposcopy (09/11/2021 12:00 AM EDT) Historical Provider IN CLINIC/BEDSIDE ORDERAB LES Final Result Performing Organization Address City/[facility]/ZIP Co de Phone Number [facility] [address] [place] [address] [phone] * Pap Smear (08/02/2021 12:00 AM EDT) Swab Nicky Thibodeaux MD LAB CYTOLOGY ORDERABLES Fi nal Result Performing Organization Address [facility]/ZIP Co de Phone Number [facility] [address] [place] [address] [phone] * Mammography (10/29/2020) Mammogram BIRADS 2 Anatomical Region Laterality Modality Other Historical Provider HEALTH MAINTENANCE Final Result * Colonoscopy (12/11/2015) Colonoscopy normal with Dr. Delgado Historical Provider HEALTH MAINTENANCE Final Result documented in this encounter Visit Diagnoses Not on filedocumented in this encounter Care Teams Hand Crocheter Relationship Specialty Start Date End Date Nicky Thibodeaux MD [address] [place] [address] PCP - General Family Medicine 04/20/18 Wu Manzo MD [address] [place] [address] Pain Medicine 03/29/24 Feroz Ascencio MD [address] [place] [address] [phone] Orthopaedic Surgery 06/15/24 Rolanda Tirado Metal Machine SetterTactical Air Defense Controller 06/25/23 [facility] 04/26/24 documented as of this encounter
--- OUTSIDE RECORDS SUMMARY | 2025-03-30 23:03 | XMS_ITS | Encounter Summary ---
Author Organization [employer] Address [address] 7[address] [place] [address] Care Team Providers Care Roughener Name Role Phone Nicky Thiobdeaux MD Primary Care Provider [phone] Wu Manzo MD Unavailable Feroz Ascencio MD Unavailable [phone] Reason for Visit * Reason Onset Date Comments chart prep 03/28/2025 Encounter Details Date Type Department Care Team (Late st Contact Info) Description 03/28/2025 Telephone [facility] MEDICINE [address] [place] [address] Nicky Thibodeaux MD [address] [place] [address] chart prep Social History Tobacco Use Types Packs/Day Years [...] encounter Miscellaneous Notes * Telephone Encounter - Senait Rooney [place] - 03/28/2025 10:07 AM EST ..Chart Prep Labs: not applicable Images: not applicable Vaccines due: Covid Due, Hep B Due, PCV20 Due, and Flu Due Referrals: Not Applicable Screenings: Not Applicable Overdue care gaps: Oral Health documented in this encounter Plan of Treatment Upcoming Encounters Date Type Department Care Team (Late st Contact Info) Description 05/15/2025 2:00 PM EST Office Visit [facility] OPTOMETRY [address] [place] [address] Shannan Eller, OD [address] [place] [address] documented as of this encounter Visit Diagnoses Not on filedocumented in this encounter Additional Health Concerns Assessment Noted Time PHQ-9 Depression Total Score: 19 025 4:37 PM EDT documented as of this encounter Care Teams Roughener Relationship Specialty Start Date End Date Nicky Thibodeaux MD [address] [place] [address] PCP - General Family Medicine 04/20/18 Wu Manzo MD [address] [place] [phone] Pain Medicine 03/29/24 Feroz Ascencio MD [address] [place] [phone] Orthopaedic Surgery 06/15/24 Rolanda Tirado Color SpecialistSales Intern 06/25/23 TREASURE [facility] 04/26/24 documented as of this encounter
--- OUTSIDE RECORDS SUMMARY | 2025-03-30 23:03 | XMS_ITS | Clinical Summary ---
Author Organization [employer] Address [address] [place] [address] 7t [place] [address] Care Team Providers Care Polyethylene Combiner Name Role Phone Nicky Thibodeaux MD Primary Care Provider [phone] Wu Manzo MD Unavailable Feroz Ascencio MD Unavailable [phone] Allergies Active Allergy Reactions Criticality Noted Date Comments Aspirin GI intolerance Low 01/03/2013 Ibuprofen GI intolerance Low 12/29/2014 Medications Spiriva HandiHaler 18 MCG inhalation capsuleIndication s:Chronic obstructive pulmonary disease, unspecified COPD type (CMS/HCC) ([facility]) INHALE 1 CAPSULE VIA HANDIHALER ONCE [...] with anxiety 50 mg. Active HYDROcodone-aceta minophen ([place]) 5-325 MG tabletIndications :Chronic low back pain, [...] A DAY 60 g 2 025 Active Ventolin HFA 108 (90 Base) MCG/ACT inhalerIndication s:Asthma, unspecified asthma severity, unspecified whether complicated, unspecified whether persistent TAKE 2 PUFFS BY MOUTH EVERY 4 TO 6 HOURS NEEDED 18 g 1 025 Active diclofenac (Voltaren) 75 MG [...] due after 03/14/25 -eye care facilitated by [facility] -dental home is [facility] care proxy paperwork completed by to the patient 07/17/23 Assessment & Plan (03/14/2024 11:23 AM EST): -next physical exam due after 03/14/25 -eye care facilitated by [facility] -dental home is [facility] [place] care proxy paperwork completed by to the patient 07/17/23 Assessment & Plan (11/19/2023 11:08 AM EDT): -next physical exam due after 12/11/23 -eye care facilitated by [facility] -dental home is [facility] care proxy paperwork completed by to the patient 07/17/23 Assessment & Plan (07/17/2023 10:10 AM EDT): -next physical exam due after 12/11/23 -eye care facilitated by [facility] -dental home is [facility] proxy paperwork completed by the patient 07/17/23 [...] and I DDD [employer]. -note 12/30/24 at [facility] case reviewed with dr taveras, he would offer her ACDF C4-5, C5-6. i will call her and update her. Assessment & Plan (07/17/2023 10:03 AM EDT): Her pain is not controlled. Dillon asked her to reach out to her original prescriber for Vicodin at [facility]. She is 7 weeks post-op sugery and is weaning her percocet's. Dillon explained since she is on Ambien, gabapentin, and benzodiazapine I would not be able to safely prescribe the medications through our program. Assessment & Plan (12/15/2022 9:38 AM EDT): Her pain is not controlled. Dillon asked her to reach out to her original prescriber for Vicodin at [facility]. She is 7 weeks post-op sugery and is weaning her percocet's. Dillon explained since she is on Ambien, gabapentin, and benzodiazapine I would not be able to safely prescribe the medications through our program. Assessment & Plan (09/03/2022 12:12 PM EDT): Her pain is not controlled. Dillon asked her to reach out to her original prescriber for Vicodin at [facility]. She is 7 weeks post-op sugery and is weaning her percocet's. Dillon explained since she is on Ambien, gabapentin, and benzodiazapine I would not be able to safely prescribe the medications through our program. Arthritis 09/02/2022 Cerebrovascular accident (CVA) ([facility]/HCC) 023 Overview (11/18/2023): Pt had episode of [...] 40mg Chronic obstructive pulmonary disease 09/02/2022 Overview (02/28/2025): Much worse since diagnosis of Covid. Heavy tobacco hx. PFTs 09/20/20 with FEV1/FVC ratio 0.71 with positive bronchodilator response -continue Flovent -continue Spiriva started 07/26/2020 -continue [...] considered to be 1.7 or 2.4 mg half-way. -PA resubmitted 11/19/23 - Advised to Switch [...] considered to be 1.7 or 2.4 mg half-way. -BUZZ resubmitted 11/19/23 Assessment & Plan (09/23/2023 [...] considered to be 1.7 or 2.4 mg half-way. Chronic low back pain 07/23/2022 Overview (01/25/2025): [...] severe pain. She is getting Vicodin from [facility]. She requests opiate medications from [facility]. We have reviewed her sedating medications together [...] therapy, multiple injections, and awaiting TENs unit. -[facility] prescribing hydrocodone/APA 5/325 to support instrumented activities [...] severe pain. She is getting Vicodin from [facility]. She requests opiate medications from [...] pain. She sees a therapist and psychiatrist. -[facility] prescribing hydrocodone/APA 5/325 to support instrumented activities [...] severe pain. She is getting Vicodin from [facility]. She requests opiate medications from [...] -Referral placed to Gynecology, Dr. Aaron 07/17/23 -[facility] called 09/23/23 stating pt declined appt [...] -Referral placed to Gynecology, Dr. Aaron 07/17/23 -[facility] called 09/23/23 stating pt declined appt [...] -Referral placed to Gynecology, Dr. Aaron 07/17/23 -[facility] called 09/23/23 stating pt declined appt [...] left MARISELA 01/29/[address] Neal in [place] -s/p bilateral GT bursa injection under fluoroscopic guidance 06/13/24 with moderate reduction of pain in bilateral lateral hips -seen by ortho at [facility] 07/21/24 Hip pain 07/13/2012 [...] 3.6 09/03/2022 -continue lifestyle modifications Anxiety 11/24/2011 Recurrent major depressive disorder, in partial remission 11/24/2011 Overview (11/19/2023): -continue with therapist and [...] Encounters Date Type Department Care Team Description 03/28/2025 Telephone [facility] MEDICINE [address] [place] [address] Nicky Thibodeaux MD chart prep 03/23/2025 Refill [facility] [address] [place] [address] Nicky Thibodeaux MD Pain 03/20/2025 Patient Outreach [facility] [address] [place] [phone] Nicky Thibodeaux MD Pre-visit Planning ([facility] screening was completed on 12/28/2024) 03/03/2025 Refill [facility] [address] [place] [address] Nicky Thibodeaux MD Osteoarthritis of hip, unspecified laterality, unspecified osteoarthritis type 02/20/2025 Refill [facility] [address] [place] [phone] Nicyk Thibodeaux MD Pain; Dermatitis; Asthma, unspecified asthma severity, unspecified whether complicated, unspecified whether persistent 02/16/2025 Refill [facility] [address] [place] [address] Nicky Thibodeaux MD Primary hypertension 02/11/2025 Refill [facility] [address] [place] [address] Nicky Thibodeaux MD Abdominal pain, unspecified abdominal location 01/23/2025 Telephone [facility] [address] [place] [address] Nicky Thibodeaux MD March Recalls 01/23/2025 Travel 01/20/2025 Refill [facility] [address] [place] [phone] Nicky Thibodeaux MD Pain; Osteoarthritis of hip, unspecified laterality, unspecified osteoarthritis type from Last 3 Months Immunizations Immunization Administration [...] Description 05/15/2025 2:00 PM EST Office Visit [facility] OPTOMETRY [address] [place] [address] Rafita, Shannan, OD [address] [place] [address] Health Maintenance Due Date Last Done Comments CT Colonography 1965 FIT DNA/Cologuard 1965 FIT 1965 FOBT 1965 Sigmoidoscopy 1965 Hepatitis B Vaccines (1 of 3 - 19+ 3-dose series) 1984 Pneumococcal Vaccine: 50+ Years (2 of 2 - PCV) 04/05/2015 04/05/2014 RSV Patients and Patients Aged 60 years or older (1 - Risk 50-74 years 1-dose series) 07/21/2015 Zoster Vaccines (1 of 2) 07/21/2015 Dental [...] PANEL, STANDARD Routine 12/26/2024 10:08 AM EDT BI MAMMOGRAM [...] Relevant to Health Maintenance Results * (ABNORMAL) Lipid Panel, Standard (12/26/2024 10:08 AM EDT) Triglycerides 198(H) <150 mg/dL [facility] Comment:Desirable Triglyceri de: less than 150 mg/dLBorderline High Triglyceride 150-199 mg/dLHigh Triglyceride: 200-499 mg/dLVery High Triglyceride: greater than or equal to 5OO mg/dL Cholesterol 186 <200 mg/dL [facility] Comment:Desirable Cholestero l: less than 200 mg/dLBorderline High Cholesterol: 200-239 mg/dLHigh Cholesterol: greater than 239 mg/dL LDL Cholesterol Calculated 97 <100 mg/dL [facility] Comment:Desirable LDL: less than 100 mg/dLNear Optimal/Above Optimal LDL: 110- 129 mg/dLBorderline High LDL: 130-159 mg/dLHigh LDL: 160-189 mg/dLVery High LDL: greater than or equal to 190 mg/dL HDL Cholesterol 50 >40 mg/dL [facility] Comment:Desirable HDL: great er than 40 mg/dL Note: This HDL assay may give artificially low results in patients with liver disease. 12/26/2024 10:0 8 AM EDT 12/26/2024 11:21 AM EDT us Generic External Data Provider LAB BLOOD ORDERAB LES Final Result [facility] [address] [place] [address] [phone] * BI Mammogram Screening Tomosynthesis Bilateral (09/30/2024 2:45 PM EDT) Anatomical Region Laterality Modality Breast Bilateral Mammography 09/30/2024 2:45 PM EDT Narrative 10/08/2024 8:50 PM EDT [facility] [address] [place] [address] Mammography Report Signed Patient: Darcy Medina MR#: [id number] : 1965 Acct:[id number] Age/Sex: 59 / F ADM Date: 09/30/24 Loc: HO.MAMMO Attending Dr: Nicky Thibodeaux MD Ordering Physician: Nicky Thibodeaux MD Results: 2B enign Findings Date of Service: 09/30/24 Follow Up: 1 Year From Orig [facility] Mammogram Procedure(s): MM tomosynthesis screening BI Accession Number(s): [id number] cc: Nicky Thibodeaux MD EXAMINATION: MM SCREENING [...] OV> 10/08/242046 DD/ 1445 TD/TT: 09/30/24 1500 Industrial Gas Servicer Helper: Procedure Note Donotuseinterpreter, Image - 10/08/2024 [facility] [address] Gallardo, [place] [address] Mammography Report Signed Patient: Darcy Medina FMR#: [id number] : 1965Acct:[id number] Age/Sex: 59 / FADM Date: 09/30/24 Loc: HO.MAMMO Attending Dr: Nicky Thibodeaux MD Ordering Physician: Nicky Thibodeaux MDResults: 2B enign Findings Date of Service: 09/30/24Follow Up: 1 Year From Orig ina Mammogram Procedure(s): MM tomosynthesis screening BI Accession Number(s): [id number] cc: Nicky Thibodeaux MD EXAMINATION: MM SCREENING [...] OV> 10/08/242046 DD/ 1445 TD/TT: 09/30/24 1500 Industrial Gas Servicer Helper: Nicky Thibodeaux MD [facility] BI PROCEDURES Edited R esult - Final * Hepatitis C Antibody with Reflex to HCV, RNA, Quantitative, Real-Time PCR (09/03/2022 11:58 AM EDT) Hepatitis C Antibody NON-REACT DILLON NON-REACT DILLON [employer] [place] [employer] Index 0.02 <1.00 [employer] [place] [employer] Comment: HCV antibody was non-reactive. There is no laboratory evidence of HCV infection. In most cases, no further action is required. However, if recent HCV exposure is suspected, a test for HCV RNA (test code 95135) is suggested. For additional information please refer to http://education.Aunt Bertha/faq/VRX15t2 (This link is being provided for informational/ educational purposes only.) Blood Venous blood specimen / Unknown 09/03/2022 11:58 AM EDT 09/03/2022 11:58 AM EDT Narrative [facility] - 09/07/2022 11:33 PM EDT FASTING:YES FASTING: YES Nicky Thibodeaux MD LAB BLOOD ORDERABLES Final Result [facility] [address] [place] [address] [employer] [place] [employer] [address] [place] [address] * HIV-1/2 Antigen and Antibodies, Fourth Generation, with Reflexes (09/03/2022 11:58 AM EDT) Pathologist [facility] HIV Antigen/Antibody, 4th Generation NON-REAC TIVE NON-REAC TIVE [employer] [place] [employer] Comment: HIV-1 antigen and HIV-1/HIV-2 antibodies were [...] purpose. For additional information please refer to http://[employer].Aunt Bertha/faq/DYZ175 (This link is being provided for informational/ educational purposes only.) The performance of this assay has not been clinically validated in patients less than 2 years old. Blood Venous blood specimen / Unknown 09/03/2022 11:58 AM EDT 09/03/2022 11:58 AM EDT Narrative [facility] - 09/07/2022 11:33 PM EDT FASTING:YES FASTING: YES us Nicky Thbiodeaux MD LAB BLOOD ORDERABLES Final Result [facility] [address], [place] [address] [employer] [facility] [address] [place] [address] * (ABNORMAL) THINPREP TIS PAP AND HPV mRNA E6/E7, CT/NG, TRICH (08/02/2021 11:49 AM EDT) Chlamydia trachomatis RNA, TMA, Urogenital NOT DETECTED NOT DETECTED [facility] Clinical Information: None given [facility] COMMENT SEE COMMENT [facility] Comment: The analytical performance characteristics of this assay, when used to test SurePath(TM) specimens have been determined by [employer]. The modifications have not been cleared or approved by the FDA. This assay has been validated pursuant to the CLIA regulations and is used for clinical purposes. For additional information, please refer to https://[employer].Survmetrics.KeyLemon/faq/BFU812 (This link is being provided for information/ [...] along with historic and current clinical information. Comment: This Pap test has been evaluated with computer assisted technology. [facility] Crane Service Technician: SEE COMMENT [facility] Comment: DCR, CT(ASCP) CT screening location: [place] [address] HPV nRNA E6/E7 Detected(A) Not Detected [facility] Comment: Methodology: Oncology Technician-Mediated Amplification This assay detects E6/E7 viral messenger RNA (mRNA) from 14 high-risk HPV types (16,18,31,33,35,39,45,51,52,56,58,59,66,68). The analytical performance characteristics of this assay have been determined by [employer]. The modifications have not been cleared or approved by the FDA. This assay has been validated pursuant to the CLIA regulations and is used for clinical purposes. For additional information, please refer to http://[employer].Aunt Bertha/faq/WUC392u8 (This link if provided for information/ educational [...] NONE GIVEN [facility] Review Crane Service Technician: SEE COMMENT [facility] Comment: JXM, CT(ASCP) CT screening location: [place] [address] SOURCE: None given [facility] Statement Of Adequacy: SATISFACTORY FOR EVALUATION [facility] Trichomonas vaginalis, QL, TMA, PAP Vial NOT DETECTED NOT DETECTED [facility] Comment: The analytical performance characteristics of this assay have been determined by [employer]. The modifications have not been cleared or approved by the FDA. This assay has been validated pursuant to the CLIA regulations and is used for clinical purposes. For additional information, please refer to http://[employer].Aunt Bertha/ faq/Trichomonastma (This link is being provided for information/ educational purposes only.) 08/02/2021 11:4 9 AM EDT Nicky Thibodeaux MD LAB PATHOLOGY ORDERABLES F inal Result [facility] [address] [place] [phone], * Pap Smear (08/02/2021 12:00 AM EDT) Swab Nicky Thibodeaux MD LAB CYTOLOGY ORDERABLES Fi nal Result [facility] [address] [place] [address] [phone] * Colonoscopy (12/11/2015) Colonoscopy normal with Dr. Delgado Maira Provider HEALTH MAINTENANCE Final Result from Last 3 Months or Most Recently Relevant to Health Maintenance Insurance [facility] STAND ADULT Advance Directives Documents on File Type Date Recorded Patient Woodyard Operator Expl anation Advance Directives and Living Will 07/17/2023 Health Care Proxy 07/17/23 Care Teams Polyethylene Combiner Relationship Specialty Start Date End Date Morelia, MD Nicky [address] [place] [address] PCP - General Family Medicine 04/20/18 Wu Manzo MD [address] [place] [address] Drive [address] [place] [address] Pain Medicine 03/29/24 Feroz Ascencio MD [address] [place] [phone] Orthopaedic Surgery 06/15/24 Rolanda Tirado Eeg TechnologistIc Designer Standard Cells 06/25/23 Latia Guardado PA-C [facility] 04/26/24
--- OUTSIDE RECORDS SUMMARY | 2025-03-30 23:03 | XMS_ITS | Encounter Summary ---
Author Organization [employer] Address [address] [facility] 7t [place] [address] Care Team Providers Care Manager Inside Name Role Phone Nicky Thibodeaux MD Primary Care Provider [phone] Wu Manzo MD Unavailable Feroz Ascencio MD Unavailable [phone] Reason for Visit * Reason Onset Date Comments pt1 10/12/2024 Encounter Details Date Type Department Care Team (Late st Contact Info) Description 10/12/2024 Telephone [facility] MEDICINE [address] [place] [address] Nicky Thibodeaux MD [address] [place] [address] pt1 Social History Tobacco Use Types Packs/Day [...] EDT CHW Cheyenne Carpio submitted pt1 to [facility] for location below and will take up to 7 days to getapproved. CHW placed call to patient to let her know, patient understood and will call if she has any concerns. documented in this encounter Plan of Treatment Upcoming Encounters Date Type Department Care Team (Late st Contact Info) Description 05/15/2025 2:00 PM EST Office Visit [facility] OPTOMETRY [address] [place] [address] Shannan Eller, OD [address] [place] [address] documented as of this encounter Visit Diagnoses Not on filedocumented in this encounter Additional Health Concerns Assessment Noted Time PHQ-9 Depression Total Score: 14 024 10:51 AM EST documented as of this encounter Care Teams Manager Inside Relationship Specialty Start Date End Date Nicky Thibodeaux MD [address] [place] [address] PCP - General Family Medicine 04/20/18 Wu Manzo MD [address] [place] [address] Pain Medicine 03/29/24 Feroz Ascencio MD [address] [place] [phone] Orthopaedic Surgery 06/15/[address] EngineerBoomboat Operator 06/25/23 TREASURE [facility] 04/26/24 documented as of this encounter
--- OUTSIDE RECORDS SUMMARY | 2025-03-30 23:03 | XMS_ITS | Encounter Summary ---
Author Organization [employer] Address [address] [place] [address] Care Team Providers Care Deputy Controller Name Role Phone Nicky Thibodeaux MD Primary Care Provider [phone] Wu Manzo MD Unavailable Feroz Ascencio MD Unavailable [phone] Reason for Visit * Reason Onset Date Comments PT-1 12/08/2023 Encounter Details Date Type Department Care Team (Late st Contact Info) Description 12/08/2023 Telephone [facility] MEDICINE [address] [place] [address] Nicky Thibodeaux MD [address] [place] [address] PT-1 Social History Tobacco Use Types Packs/Day [...] Yes Provider name or facility name: [facility] Facility Address: [address] [place] [address] Escort needed: Y/N: No Do you have a wheelchair: Y/N: No If yes- Manual or electric: N/A (uses walker) Visits: twice a month documented in this encounter Plan of Treatment Upcoming Encounters Date Type Department Care Team (Late st Contact Info) Description 05/15/2025 2:00 PM EST Office Visit [facility] OPTOMETRY [address] [place] [address] Rafita, Shannan, OD [address] [place] [address] documented as of this encounter Visit Diagnoses Not on filedocumented in this encounter Additional Health Concerns Assessment Noted Time PHQ-9 Depression Total Score: 22 023 2:09 PM EDT documented as of this encounter Care Teams Deputy Controller Relationship Specialty Start Date End Date Nicky Thibodeaux MD [address] [place] [address] PCP - General Family Medicine 04/20/18 Wu Manzo MD [address] [place] [address] [address] [place] [address] Pain Medicine 03/29/24 Feroz Ascencio MD [address] [place] [phone] Orthopaedic Surgery 06/15/24 Rolanda Tirado Director DancePatent Counsel 06/25/23 Latia Guardado PA-C [facility] 04/26/24 documented as of this encounter
--- OUTSIDE RECORDS SUMMARY | 2025-03-30 23:03 | XMS_ITS | Encounter Summary ---
Author Organization [employer] Address [address] 7t [place] [address] Care Team Providers Care Metal Gauge Maker Name Role Phone Nicky Thibodeaux MD Primary Care Provider [phone]- [phone] Wu Manzo MD Unavailable Feroz Ascencio MD Unavailable [phone] Reason for Visit * Reason Onset Date Comments PA 10/12/2023 Encounter Details Date Type Department Care Team (Late st Contact Info) Description 10/12/2023 Telephone [facility] MEDICINE 230 [place] [address] Nicky Thibodeaux MD 230 [place] [address] PA Social History Tobacco Use Types Packs/Day [...] Description 05/15/2025 2:00 PM EST Office Visit [facility] OPTOMETRY [address] [place] [address] Rafita, Shannan, OD 230 [place] [address] documented as of this encounter Visit Diagnoses Not on filedocumented in this encounter Additional Health Concerns Assessment Noted Time PHQ-9 Depression Total Score: 22 023 2:09 PM EDT documented as of this encounter Care Teams Metal Gauge Maker Relationship Specialty Start Date End Date Nicky Thibodeaux MD 230 [place] [address] PCP - General Family Medicine 04/20/18 Wu Manzo MD [address] [facility] [place] [address] Pain Medicine 03/29/24 Feroz Ascencio MD [address] [place] [phone] Orthopaedic Surgery 06/15/24 Rolanda Tirado Clinic PhysicianShotblast Equipment Operator 06/25/23 TREASURE [facility] 04/26/24 documented as of this encounter
--- OUTSIDE RECORDS SUMMARY | 2025-03-30 23:03 | XMS_ITS | Encounter Summary ---
Author Organization [employer] Address [address] 7t [place] [address] Care Team Providers Care Toolroom Clerk Name Role Phone Nicky Thibodeaux MD Primary Care Provider +1- [phone] Wu Manzo MD Unavailable Feroz Ascencio MD Unavailable [phone] Reason for Visit * Reason Onset Date Comments Pre-visit Planning 11/09/2023 Encounter Details Date Type Department Care Team (Late st Contact Info) Description 11/09/2023 Telephone [facility] MEDICINE 230 [place] [address] Nicky Thibodeaux MD 230 [place] [address] Pre-visit Planning Social History Tobacco Use Types [...] Description 05/15/2025 2:00 PM EST Office Visit [facility] OPTOMETRY [address] [place] [address] Rafita, Shannan, OD 230 [place] [address] documented as of this encounter Visit Diagnoses Not on filedocumented in this encounter Additional Health Concerns Assessment Noted Time PHQ-9 Depression Total Score: 22 023 2:09 PM EDT documented as of this encounter Care Teams Toolroom Clerk Relationship Specialty Start Date End Date Nicky Thibodeaux MD 230 [place] [address] PCP - General Family Medicine 04/20/18 Wu Manzo MD [address] [place] [address] Pain Medicine 03/29/24 Feroz Ascencio MD [address] [place] [phone] Orthopaedic Surgery 06/15/24 Rolanda Tirado Army OfficerCore Java Software Engineer 06/25/23 TREASURE [facility] 04/26/24 documented as of this encounter
--- OUTSIDE RECORDS SUMMARY | 2025-03-30 23:03 | XMS_ITS | Encounter Summary ---
Author Organization [employer] Address [address] [facility] 7t [place] [address] Care Team Providers Care Churn Driller Name Role Phone Nicky Thibodeaux MD Primary Care Provider +1- [phone] Wu Manzo MD Unavailable Feroz Ascencio MD Unavailable [phone] Reason for Visit * Reason Comments Med Refill Encounter Details Date Type Department Care Team ([facility] Contact Info) Description 08/26/2022 Refill [facility] MED & PEDS [address] [place] [address] Nicky Thibodeaux MD 230 [place] [address] Pain Social History Tobacco Use Types Packs/Day [...] Description 05/15/2025 2:00 PM EST Office Visit [facility] OPTOMETRY [address] [place] [address] Rafita, Shannan, OD 230 [place] [address] documented as of this encounter Visit Diagnoses Diagnosis Pain Generalized pain documented in this encounter Additional Health Concerns Assessment Noted Time PHQ-9 Depression Total Score: 22 023 2:09 PM EDT documented as of this encounter Care Teams Churn Driller Relationship Specialty Start Date End Date Nicky Thibodeaux MD 230 [place] [address] PCP - General Family Medicine 04/20/18 Wu Manzo MD [address] [place] [address] Drive [address] [place] [address] Pain Medicine 03/29/24 Feroz Ascencio MD [address] [place] [phone] Orthopaedic Surgery 06/15/24 Rolanda Tirado Grain OperatorCrossbar Switch Adjuster 06/25/23 Latia Guardado PA-C [facility] 04/26/24 documented as of this encounter
--- OUTSIDE RECORDS SUMMARY | 2025-03-30 23:03 | XMS_ITS | Encounter Summary ---
Author Organization [employer] Address [address] [facility] [facility] [address] [facility] [address] 7t [place] [address] Care Team Providers Care Diffuser Operator Name Role Phone Nicky Thibodeaux MD Primary Care Provider [phone]- [phone] Wu Manzo MD Unavailable Feroz Ascencio MD Unavailable [phone] Encounter Details Date Type Department Care Team (Late st Contact Info) Description 2023 Orders Only [facility] MEDICINE [address] [place], [place] [phone] Nicky Thibodeaux MD 230 [place] [address] Social History Tobacco Use Types Packs/Day Years [...] Description 05/15/2025 2:00 PM EST Office Visit [facility] OPTOMETRY [address] [place] [address] Rafita, Megan, OD 230 [place] [address] documented as of this encounter Visit Diagnoses Not on filedocumented in this encounter Additional Health Concerns Assessment Noted Time PHQ-9 Depression Total Score: 22 023 2:09 PM EDT documented as of this encounter Care Teams Diffuser Operator Relationship Specialty Start Date End Date Nicky Thibodeaux MD 230 [place] [address] PCP - General Family Medicine 04/20/18 Wu Manzo MD [address] [place] [address] Pain Medicine 03/29/24 Feroz Ascencio MD [address] [place] [phone] Orthopaedic Surgery 06/15/24 Rolanda Tirado Senior Java Data ArchitectAssistant Accounting Manager 06/25/23 Latia Guardado PA-C [facility] 04/26/24 documented as of this encounter
--- OUTSIDE RECORDS SUMMARY | 2025-03-30 23:03 | XMS_ITS | Encounter Summary ---
Author Organization [employer] Address [address] [place] [address] 7t [place] [address] Care Team Providers Care Fibre Optics Jointer Name Role Phone Richardson, Nicky CASTAÑEDA Primary Care Provider +1- [phone] Wu Manzo MD Unavailable Feroz Ascencio MD Unavailable [phone] Reason for Visit * Reason Comments Med Refill Encounter Details Date Type Department Care Team (Late st Contact Info) Description 09/30/2022 Refill [facility] MEDICINE 230 [place] [address] Deborah Stratton MD 230 [place] [address] Chronic migraine without aura without status migrainosus, [...] Description 05/15/2025 2:00 PM EST Office Visit [facility] OPTOMETRY [address] [place], [place] [phone] Shannan Eller, OD 230 [place] [address] documented as of this encounter Visit Diagnoses Diagnosis Chronic migraine without aura without status migrainosus, not intractable documented in this encounter Additional Health Concerns Assessment Noted Time PHQ-9 Depression Total Score: 22 023 2:09 PM EDT documented as of this encounter Care Teams Fibre Optics Jointer Relationship Specialty Start Date End Date Nicky Thibodeaux MD 230 [place], [place] [phone] PCP - General Family Medicine 04/20/[address] [place] [address] Pain Medicine 03/29/24 Feroz Ascencio MD [address] [place] [phone] Orthopaedic Surgery 06/15/24 Rolanda Tirado Blow Moulding Machine OperatorRadio Officer 06/25/23 Latia Guardado PA-C [facility] 04/26/24 documented as of this encounter
--- OUTSIDE RECORDS SUMMARY | 2025-03-30 23:03 | XMS_ITS | Encounter Summary ---
Author Organization [employer] Address [address] [facility] 7t [place] [address] Care Team Providers Care Senior Web Applications Developer Name Role Phone Washakie, Nicky CASTAÑEDA Primary Care Provider [phone]- [phone] Wu Manzo MD Unavailable Feroz Ascencio MD Unavailable [phone] Reason for Visit * Reason Onset Date Comments Medication Question 12/11/2022 Encounter Details Date Type Department Care Team (Late st Contact Info) Description 12/11/2022 Telephone [facility] MEDICINE 230 [place] [address] Chesli Canseco ANP 230 [place] [address] Medication Question Social History Tobacco Use Types [...] Description 05/15/2025 2:00 PM EST Office Visit [facility] OPTOMETRY [address] [place] [address] Shannan Eller, OD 230 [place] [address] documented as of this encounter Visit Diagnoses Diagnosis Essential (primary) hypertension Unspecified essential hypertension documented in this encounter Additional Health Concerns Assessment Noted Time PHQ-9 Depression Total Score: 22 023 2:09 PM EDT documented as of this encounter Care Teams Senior Web Applications Developer Relationship Specialty Start Date End Date Nicky Thibodeaux MD 230 [place] [address] PCP - General Family Medicine 04/20/18 Wu Manzo MD [address] [place] [address] Drive [address] [place] [address] Pain Medicine 03/29/24 Feroz Ascencio MD [address] [place] [phone] Orthopaedic Surgery 06/15/24 Rolanda Tirado Brush Holder InspectorWave Guide Assembler 06/25/23 Latia Guardado PA-C [facility] 04/26/24 documented as of this encounter
--- OUTSIDE RECORDS SUMMARY | 2025-03-30 23:03 | XMS_ITS | Encounter Summary ---
Author Organization [employer] Address [address] [facility] 7t [place] [address] Care Team Providers Care Slot Floorperson Name Role Phone Nicky Thibodeaux MD Primary Care Provider [phone]- [phone] Wu Manzo MD Unavailable Feroz Ascencio MD Unavailable [phone] Encounter Details Date Type Department Care Team (Late Contact Info) Description 08/12/2022 Orders Only [facility] MEDICINE [address] [place] [address] Nicky Thibodeaux MD 230 [place] [address] Social History Tobacco Use Types Packs/Day Years [...] Description 05/15/2025 2:00 PM EST Office Visit [facility] OPTOMETRY [address] [place] [address] Rafita, Shannan, OD 230 [place] [address] documented as of this encounter Visit Diagnoses Not on filedocumented in this encounter Additional Health Concerns Assessment Noted Time PHQ-9 Depression Total Score: 22 023 2:09 PM EDT documented as of this encounter Care Teams Slot Floorperson Relationship Specialty Start Date End Date Nicky Thibodeaux MD 230 [place] [address] PCP - General Family Medicine 04/20/18 Wu Manzo MD [address] [place] [address] Drive [address] [place] [address] Pain Medicine 03/29/24 Feroz Ascencio MD [address] [place] [phone] Orthopaedic Surgery 06/15/24 Rolanda Tirado Business Control ManagerRoll Bucker 06/25/23 TREASURE [facility] 04/26/24 documented as of this encounter
--- OUTSIDE RECORDS SUMMARY | 2025-03-30 23:03 | XMS_ITS | Clinical Summary ---
Author Organization [facility] Address [address] [place] [address] Care Team Providers Care Aircraft Refueller Name Role Phone Nicky Thibodeaux MD Primary Care Provider +1- [phone] Social History Tobacco Use Types Packs/Day Years [...] P ap Smear 08/02/2024 08/02/2021 COVID-19 Vaccine (1 - 2024-2 6 season) 2024 Influenza Vaccine (#1) 2024 4, [...] age to complete this topic Care Teams Aircraft Refueller Relationship Specialty Start Date End Date Nicky Thibodeaux MD [address] [place] [phone] PCP - General Internal Medicine 12/21/13
--- OUTSIDE RECORDS SUMMARY | 2025-03-30 23:03 | XMS_ITS | Encounter Summary ---
Author Organization [employer] Address [address] [place] [address] 7t [place] [address] Care Team Providers Care Dietary Director Name Role Phone Nicky Thibodeaux MD Primary Care Provider +1- [phone] Wu Manzo MD Unavailable Feroz Ascencio MD Unavailable [phone] Reason for Visit * Reason Comments Med Refill Encounter Details Date Type Department Care Team (Late Contact Info) Description 12/11/2022 Refill [facility] MEDICINE 230 [place] [address] Nicky Thibodeaux MD 230 [place] [address] Social History Tobacco Use Types Packs/Day Years [...] [facility] [address] [place], [place] [phone] Shannan Eller, OD 230 [place] [address] documented as of this encounter Visit Diagnoses Not on filedocumented in this encounter Additional Health Concerns Assessment Noted Time PHQ-9 Depression Total Score: 22 023 2:09 PM EDT documented as of this encounter Care Teams Dietary Director Relationship Specialty Start Date End Date Nicky Thibodeaux MD [address] [place] [address] PCP - General Family Medicine 04/20/18 Wu Manzo MD [address] [place] [address] Drive [address] [place] [address] Pain Medicine 03/29/24 Feroz Ascencio MD [address] [place] [phone] Orthopaedic Surgery 06/15/24 Rolanda Tirado Import Customs Clearing AgentLogistics Management Specialist 06/25/23 TREASURE [facility] 04/26/24 documented as of this encounter
--- OUTSIDE RECORDS SUMMARY | 2025-03-30 23:03 | XMS_ITS | Encounter Summary ---
Author Organization [employer] Address [address] [facility] 7t [place] [address] Care Team Providers Care Radio Host Name Role Phone Nicky Thibodeaux MD Primary Care Provider [phone]- [phone] Wu Manzo MD Unavailable Feroz Ascencio MD Unavailable [phone] Reason for Visit * Reason Onset Date Comments Durable Medical Equipment 08/07/2022 Encounter Details Date Type Department Care Team (Late st Contact Info) Description 08/07/2022 Telephone [facility] MEDICINE 230 [place] [address] Nicky Thibodeaux MD [address] [place] [address] Durable Medical Equipment Social History Tobacco Use [...] - 08/14/2022 9:23 AM EDT Tc from [facility] requesting status on a form send over for [facility] grab bar. Please contact Renzo at [phone] * Telephone Encounter - Wellington Smith - 08/07/2022 9:57 AM EDT Tc from [facility] with [facility] requesting a status on a form sent over for a [facility] Grab bar. Please contact renzo at [phone] documented in this encounter Plan of Treatment Upcoming Encounters Date Type Department Care Team (Late st Contact Info) Description 05/15/2025 2:00 PM EST Office Visit [facility] OPTOMETRY [address] [place] [address] Shannan Eller, OD 230 [place] [address] documented as of this encounter Visit Diagnoses Not on filedocumented in this encounter Additional Health Concerns Assessment Noted Time PHQ-9 Depression Total Score: 22 023 2:09 PM EDT documented as of this encounter Care Teams Radio Host Relationship Specialty Start Date End Date Nicky Thibodeaux MD [address] [place] [address] PCP - General Family Medicine 04/20/18 Wu Manzo MD [address] [place] [address] Pain Medicine 03/29/24 Feroz Ascencio MD [address] [place] [phone] Orthopaedic Surgery 06/15/24 Rolanda Tirado Jewelry FinisherHarvest Worker Fruit 06/25/23 TREASURE [facility] 04/26/24 documented as of this encounter
--- OUTSIDE RECORDS SUMMARY | 2025-03-30 23:03 | XMS_ITS | Encounter Summary ---
Author Organization [employer] Address [address] [facility] 7t [place] [address] Care Team Providers Care Teachers Assistant Name Role Phone Nicky Thibodeaux MD Primary Care Provider +1- [phone] Wu Manzo MD Unavailable Feroz Ascencio MD Unavailable [phone] Reason for Visit * Reason Onset Date Comments Nurse Triage 05/11/2024 Encounter Details Date Type Department Care Team (Late st Contact Info) Description 05/11/2024 Telephone [facility] MEDICINE 230 [place] [address] Nicky Thibodeaux MD 230 [place] [address] Nurse Triage Social History Tobacco Use Types [...] or Thursday.Pt wants appt on Thursday when [employer] is available to bring pt. Reviewed [facility] operating hours and that wait times vary. Unable to book sick on site > 48 hours. Pt advised can call back on Thursday for Thursday scheduled. Reviewed home care advise, ER precautions and reasons to call back. Protocol Used: Dizziness (Adult) Protocol-Based Disposition: Discuss with PCP and Callback by Nurse Today Sent to PCP and [place] team Primary care nurses for follow up [...] Description 05/15/2025 2:00 PM EST Office Visit [facility] OPTOMETRY [address] [place], [place] [phone] RafitaJoshuan, OD 230 [place] [address] documented as of this encounter Visit Diagnoses Not on filedocumented in this encounter Additional Health Concerns Assessment Noted Time PHQ-9 Depression Total Score: 14 024 10:51 AM EST documented as of this encounter Care Teams Teachers Assistant Relationship Specialty Start Date End Date Nicky Thibodeaux MD 230 [place] [address] PCP - General Family Medicine 04/20/18 Wu Manzo MD [address] [place] [address] Pain Medicine 03/29/24 Feroz Ascencio MD [address] [place] [phone] Orthopaedic Surgery 06/15/24 Rolanda Tirado Activities LeaderIron Installer 06/25/23 Latia Guardado PA-C [facility] 04/26/24 documented as of this encounter
--- OUTSIDE RECORDS SUMMARY | 2025-03-30 23:03 | XMS_ITS | Encounter Summary ---
Author Organization [employer] Address [address] [facility] 7t [place] [address] Care Team Providers Care Secondary Art Teacher Name Role Phone Nicky Thibodeaux MD Primary Care Provider +1- [phone] Wu Manzo MD Unavailable Feroz Ascencio MD Unavailable Reason for Visit * Reason Comments Med Refill Encounter Details Date Type Department Care Team (Late st Contact Info) Description 05/26/2024 Refill [facility] MEDICINE 230 [place] [address] Nicky Thibodeaux MD 230 [place] [address] Pain Social History Tobacco Use Types Packs/Day [...] Description 05/15/2025 2:00 PM EST Office Visit [facility] OPTOMETRY 267 [place] [address] Rafita, Shannan, OD 230 [place] [address] documented as of this encounter Visit Diagnoses Diagnosis Pain Generalized pain documented in this encounter Additional Health Concerns Assessment Noted Time PHQ-9 Depression Total Score: 14 024 10:51 AM EST documented as of this encounter Care Teams Secondary Art Teacher Relationship Specialty Start Date End Date Nicky Thibodeaux MD 230 [place] [address] PCP - General Family Medicine 04/20/18 Wu Manzo MD [address] [place] [address] Pain Medicine 03/29/24 Feroz Ascencio MD [address] [place] [phone] Orthopaedic Surgery 06/15/24 Rolanda Tirado Bistro ServerGas Distribution Plant Operator 06/25/23 TREASURE [facility] 04/26/24 documented as of this encounter
--- OUTSIDE RECORDS SUMMARY | 2025-03-30 23:03 | XMS_ITS | Encounter Summary ---
Author Organization [employer] Address [address] [facility] 7t [place] [address] Care Team Providers Care Sample Taker Operator Name Role Phone Nicky Thibodeaux MD Primary Care Provider [phone]- [phone] Wu Manzo MD Unavailable Feroz Ascencio MD Unavailable [phone] Encounter Details Date Type Department Care Team (Latest Contact Info) Description 04/05/2021 Abstract [facility] CONVERSIONS Dental, Provider, DDS Social History Tobacco [...] Description 05/15/2025 2:00 PM EST Office Visit [facility] OPTOMETRY [address] [place] [address] Rafita, Shannan, OD 230 [place] [address] documented as of this encounter Visit Diagnoses Not on filedocumented in this encounter Care Teams Sample Taker Operator Relationship Specialty Start Date End Date Nicky Thibodeaux MD 230 [place] [address] PCP - General Family Medicine 04/20/18 Wu Manzo MD [address] [place] [address] Drive [address] [place] [address] Pain Medicine 03/29/24 Feroz Ascencio MD [address] [place] [phone] Orthopaedic Surgery 06/15/24 Rolanda Tirado Brilliandeer LopperIndustrial Cook 06/25/23 TREASURE [facility] 04/26/24 documented as of this encounter
== END 2025-03-30 15:46 | disposition home or self-care (01) ==
LOC: HO.PMC 15:32
PROVIDERS: Visit Provider Anesthesiology
DX: M53.3 Sacrococcygeal disorders, not elsewhere classified (principal); M46.1 Sacroiliitis, not elsewhere classified; M96.1 Postlaminectomy syndrome, not elsewhere classified; G89.4 Chronic pain syndrome
CPT/HCPCS: 99213

== ENCOUNTER → 2025-03-30 15:31 | Outpatient (BNVA) | payer MEDICAID, SELFPAY | PROVIDERS: Visit Provider Anesthesiology | DX: M96.1 Postlaminectomy syndrome, not elsewhere classified (principal); M53.3 Sacrococcygeal disorders, not elsewhere classified; M46.1 Sacroiliitis, not elsewhere classified; G89.4 Chronic pain syndrome | CPT/HCPCS: 99212 ==

== ENCOUNTER 2025-04-14 11:02 | Outpatient (AMB) | payer MEDICAID, SELFPAY ==
--- OUTSIDE RECORDS SUMMARY | 2025-04-14 11:05 | XMS_ITS | Encounter Summary ---
Author Organization [email or web address] Address [address] [place] [address] 7t [place] [address] Care Team Providers Care Tree Care Foreman Name Role Phone Ritchie, Nicky CASTAÑEDA Primary Care Provider +1- [phone] Wu Manzo MD Unavailable Feroz Ascencio MD Unavailable [phone] Reason for Visit * Reason Comments Med Refill Encounter Details Date Type Department Care Team (Late st Contact Info) Description 09/30/2022 Refill [facility] MEDICINE 230 [place] [address] Deborah Stratton MD 230 [place] [address] Chronic migraine without aura without status migrainosus, [...] Description 05/15/2025 2:00 PM EST Office Visit [facility] OPTOMETRY [address] [place] [address] Shannan Eller, OD 230 [place] [address] 05/31/2025 2:15 PM EST Office Visit [facility] MEDICINE 230 [place] [address] Nicky Thibodeaux MD 230 [place] [address] documented as of this encounter Visit Diagnoses Diagnosis Chronic migraine without aura without status migrainosus, not intractable documented in this encounter Additional Health Concerns Assessment Noted Time PHQ-9 Depression Total Score: 22 023 2:09 PM EDT documented as of this encounter Care Teams Tree Care Foreman Relationship Specialty Start Date End Date Nicky Thibodeaux MD 230 [place] [address] PCP - General Family Medicine 04/20/18 Wu Manzo MD [address] [place] [address] Drive [address] [place] [address] Pain Medicine 03/29/24 Feroz Ascencio MD [address] [place] [phone] Orthopaedic Surgery 06/15/24 Rolanda Tirado Nurse'S AssistantConference Translator 06/25/23 TREASURE [facility] 04/26/24 documented as of this encounter
--- OUTSIDE RECORDS SUMMARY | 2025-04-14 11:05 | XMS_ITS | Encounter Summary ---
Author Organization [employer] Address 75 [facility] 7t [place] [address] Care Team Providers Care Wrapping Machine Operator Name Role Phone Nicky Thibodeaux MD Primary Care Provider +1- [phone] Wu Manzo MD Unavailable Feroz Ascencio MD Unavailable [phone] Encounter Details Date Type Department Care Team (Late Contact Info) Description 08/12/2022 Orders Only [facility] MEDICINE [address] [place] [address] Nicky Thibodeaux MD 230 [place] [address] Social History Tobacco Use Types Packs/Day Years [...] Visit [facility] OPTOMETRY [address] [place], [place] [phone] Rafita, Shannan, OD 230 [place] [address] 05/31/2025 2:15 PM EST Office Visit [facility] MEDICINE 230 [place] [address] Nicky Thibodeaux MD 230 [place] [address] documented as of this encounter Visit Diagnoses Not on filedocumented in this encounter Additional Health Concerns Assessment Noted Time PHQ-9 Depression Total Score: 22 023 2:09 PM EDT documented as of this encounter Care Teams Wrapping Machine Operator Relationship Specialty Start Date End Date Nicky Thibodeaux MD 230 [place] [address] PCP - General Family Medicine 04/20/18 Wu Manzo MD [address] [place] [address] Pain Medicine 03/29/24 Feroz Ascencio MD [address] [place] [phone] Orthopaedic Surgery 06/15/24 Rolanda Tirado Poultry Barn ManagerHaulpak Driver 06/25/23 Latia Guardado PA-C [facility] 04/26/24 documented as of this encounter
--- OUTSIDE RECORDS SUMMARY | 2025-04-14 11:05 | XMS_ITS | Encounter Summary ---
Author Organization [employer] Address [address] [place] [address] 7t [place] [address] Care Team Providers Care Wax Blender Name Role Phone Nicky Thibodeaux MD Primary Care Provider [phone]- [phone] Wu Manzo MD Unavailable Feroz Ascencio MD Unavailable [phone] Reason for Visit * Reason Comments Med Refill Encounter Details Date Type Department Care Team (Late Contact Info) Description 2022 Refill [facility] 230 [place], [place] [phone] Krystin Frederick FNP Chronic migraine without aura [...] Description 05/15/2025 2:00 PM EST Office Visit [facility] OPTOMETRY [address] [place], [place] [phone] Shannan Eller, OD 230 [place], [place] [phone] 05/31/2025 2:15 PM EST Office Visit [facility] MEDICINE 230 [place], [place] [phone] Nicky Thibodeaux MD 230 [place] [address] documented as of this encounter Visit Diagnoses Diagnosis Chronic migraine without aura without status migrainosus, not intractable documented in this encounter Care Teams Wax Blender Relationship Specialty Start Date End Date Nicky Thibodeaux MD 230 [place] [address] PCP - General Family Medicine 04/20/18 Wu Manzo MD [address] [place] [address] [address] [place] [address] Pain Medicine 03/29/24 Feroz Ascencio MD [address] [place] [phone] Orthopaedic Surgery 06/15/24 Rolanda Tirado Shell FishermanBelt Buckle Maker 06/25/23 Latia Guardado PA-C [facility] 04/26/24 documented as of this encounter
--- OUTSIDE RECORDS SUMMARY | 2025-04-14 11:05 | XMS_ITS | Encounter Summary ---
Author Organization [employer] Address 75 [facility] 7t [place] [address] Care Team Providers Care Career Discovery Teacher Name Role Phone Nicky Thibodeaux MD Primary Care Provider [phone]- [phone] Wu Manzo MD Unavailable Feroz Ascencio MD Unavailable [phone] Reason for Visit * Reason Comments Med Refill Encounter Details Date Type Department Care Team (Late st Contact Info) Description 04/09/2023 Refill [facility] MEDICINE 230 [place] [address] Nicky Thibodeaux MD 230 [place] [address] Pain Social History Tobacco Use Types Packs/Day [...] Description 05/15/2025 2:00 PM EST Office Visit [facility] OPTOMETRY [address] [place] [address] Rafita, Shannan, OD 230 [place] [address] 05/31/2025 2:15 PM EST Office Visit [facility] MEDICINE 230 [place] [address] Nicky Thibodeaux MD 230 [place] [address] documented as of this encounter Visit Diagnoses Diagnosis Pain Generalized pain documented in this encounter Additional Health Concerns Assessment Noted Time PHQ-9 Depression Total Score: 22 023 2:09 PM EDT documented as of this encounter Care Teams Career Discovery Teacher Relationship Specialty Start Date End Date Nicky Thibodeaux MD 230 [place] [address] PCP - General Family Medicine 04/20/18 Wu Manzo MD [address] [place] [address] Pain Medicine 03/29/24 Feroz Ascencio MD [address] [place] [phone] Orthopaedic Surgery 06/15/24 Rolanda Tirado Clinical Informatics ManagerPrestressed Concrete Laborer 06/25/23 TREASURE [facility] 04/26/24 documented as of this encounter
--- OUTSIDE RECORDS SUMMARY | 2025-04-14 11:05 | XMS_ITS | Encounter Summary ---
Author Organization [employer] Address [address] [place] [address] 7t [place] [address] Care Team Providers Care Hardboard Supervisor Name Role Phone Nicky Thibodeaux MD Primary Care Provider [phone]- [phone] Wu Manzo MD Unavailable Feroz Ascencio MD Unavailable [phone] Encounter Details Date Type Department Care Team (Late st Contact Info) Description 05/22/2022 Orders Only [facility] MEDICINE [address] [place] [address] Nereida Horner LPN Social History Tobacco Use [...] Description 05/15/2025 2:00 PM EST Office Visit [facility] OPTOMETRY [address] [place] [address] [phone] Shannan Eller, OD 230 [place] [address] 05/31/2025 2:15 PM EST Office Visit [facility] MEDICINE 230 [place] [address] Nicky Thibodeaux MD 230 [place] [address] documented as of this encounter Visit Diagnoses Not on filedocumented in this encounter Care Teams Hardboard Supervisor Relationship Specialty Start Date End Date Morelia, MD Nicky 230 [place] [address] PCP - General Family Medicine 04/20/18 Wu Manzo MD [address] [place] [address] Pain Medicine 03/29/24 Feroz Ascencio MD [address] [place] [phone] Orthopaedic Surgery 06/15/24 Rolanda Tirado Exchange MechanicLock Stitch Channeler 06/25/23 Latia Guardado PA-C [facility] 04/26/24 documented as of this encounter
--- OUTSIDE RECORDS SUMMARY | 2025-04-14 11:05 | XMS_ITS | Encounter Summary ---
Author Organization [employer] Address [address] [place] [address] 7t [place] [address] Care Team Providers Care Bellhop Captain Name Role Phone Nicky Thibodeaux MD Primary Care Provider [phone]- [phone] Wu Manzo MD Unavailable Feroz Ascencio MD Unavailable [phone] Encounter Details Date Type Department Care Team (Late st Contact Info) Description 05/05/2022 Abstract [facility] MEDICINE [address] [place] [address] Nikcy Thibodeaux MD 230 [place], [place] [phone] Social History Tobacco Use Types Packs/Day Years [...] [facility] OPTOMETRY [address] [place], [place] [phone] Shannan Eller OD 230 [place] [address] 05/31/2025 2:15 PM EST Office Visit [facility] MEDICINE [address] [place] [address] Nicky Thibodeaux MD 230 [place] [address] documented as of this encounter Procedures Procedure Name Priority Date/Time Associated Diagnosis Comments COLPOSCOPY Routine 09/11/2021 12:00 AM EDT PAP SMEAR Routine 08/02/2021 12:00 AM EDT MAMMOGRAPHY Routine 10/29/2020 COLONOSCOPY Routine 12/11/2015 documented in this encounter Results * Colposcopy (09/11/2021 12:00 AM EDT) Historical Provider IN CLINIC/BEDSIDE ORDERAB LES Final Result Performing Organization Address [facility] Co de Phone Number [facility] [address] [place] [phone] * Pap Smear (08/02/2021 12:00 AM EDT) Swab Nicky Thibodeaux MD LAB CYTOLOGY ORDERABLES Fi nal Result Performing Organization Address [facility]/ZIP Co de Phone Number [facility] [address] [place] [address] [phone] * Mammography (10/29/2020) Mammogram BIRADS 2 Anatomical Region Laterality Modality Other Historical Provider HEALTH MAINTENANCE Final Result * Colonoscopy (12/11/2015) Colonoscopy normal with Dr. Delgado Historical Provider HEALTH MAINTENANCE Final Result documented in this encounter Visit Diagnoses Not on filedocumented in this encounter Care Teams Bellhop Captain Relationship Specialty Start Date End Date Nicky Thibodeaux MD 230 [place] [address] PCP - General Family Medicine 04/20/18 Wu Manzo MD [address] [place] [address] Pain Medicine 03/29/24 Feroz Ascencio MD [address] [place] [phone] Orthopaedic Surgery 06/15/24 Rolanda Tirado Teamcenter Solution ArchitectSmall Electric Engine Technician 06/25/23 TREASURE [facility] 04/26/24 documented as of this encounter
--- OUTSIDE RECORDS SUMMARY | 2025-04-14 11:05 | XMS_ITS | Encounter Summary ---
Author Organization [employer] Address 75 [facility] 7t [place] [address] Care Team Providers Care Machine Whitener Name Role Phone Nicky Thibodeaux MD Primary Care Provider [phone]- [phone] Wu Manzo MD Unavailable Feroz Ascencio MD Unavailable [phone] Reason for Visit * Reason Comments Med Refill Encounter Details Date Type Department Care Team (Late st Contact Info) Description 05/19/2023 Refill [facility] MEDICINE 230 [place] [address] Nicky Thibodeaux MD 230 [place], [place] [phone] Asthma, unspecified asthma severity, unspecified whether complicated, [...] Description 05/15/2025 2:00 PM EST Office Visit [facility] OPTOMETRY [address] [place] [address] Rafita, Shannan, OD 230 [place] [address] 05/31/2025 2:15 PM EST Office Visit [facility] MEDICINE 230 [place] [address] Nicky Thibodeaux MD 230 [place] [address] documented as of this encounter Visit Diagnoses Diagnosis Asthma, unspecified asthma severity, unspecified whether complicated, unspecified whether persistent documented in this encounter Additional Health Concerns Assessment Noted Time PHQ-9 Depression Total Score: 22 023 2:09 PM EDT documented as of this encounter Care Teams Machine Whitener Relationship Specialty Start Date End Date Nicky Thibodeaux MD 230 [place] [address] PCP - General Family Medicine 04/20/18 Wu Manzo MD [address] [place] [address] Pain Medicine 03/29/24 Feroz Ascencio MD [address] [place] [phone] Orthopaedic Surgery 06/15/24 Rolanda Tirado Chemical Dependency NurseCash Processing Specialist 06/25/23 TREASURE [facility] 04/26/24 documented as of this encounter
--- OUTSIDE RECORDS SUMMARY | 2025-04-14 11:05 | XMS_ITS | Encounter Summary ---
Author Organization [employer] Address 75 [facility] 7t [place] [address] Care Team Providers Care Cloth Finishing Range Back Tender Name Role Phone Nicky Thibodeaux MD Primary Care Provider [phone]- [phone] Wu Manzo MD Unavailable Feroz Ascencio MD Unavailable [phone] Reason for Visit * Reason Onset Date Comments Durable Medical Equipment 08/07/2022 Encounter Details Date Type Department Care Team (Late st Contact Info) Description 08/07/2022 Telephone [facility] MEDICINE 230 [place] [address] Nicky Thibodeaux MD 230 [place] [address] Durable Medical Equipment Social History Tobacco Use [...] - 08/14/2022 9:23 AM EDT Tc from [facility] requesting status on a form send over for [facility]. Please contact Renzo at [phone] * Telephone Encounter - Wellington Smith - 08/07/2022 9:57 AM EDT Tc from [facility] with [facility] requesting a status on a form sent over for a [facility] Grab bar. Please contact renzo at [phone] documented in this encounter Plan of Treatment Upcoming Encounters Date Type Department Care Team (Late st Contact Info) Description 05/15/2025 2:00 PM EST Office Visit [facility] OPTOMETRY 267 [place] [address] Shannan Eller, OD 230 [place] [address] 05/31/2025 2:15 PM EST Office Visit [facility] MEDICINE 230 [place] [address] Nicky Thibodeaux MD 230 [place] [address] documented as of this encounter Visit Diagnoses Not on filedocumented in this encounter Additional Health Concerns Assessment Noted Time PHQ-9 Depression Total Score: 22 023 2:09 PM EDT documented as of this encounter Care Teams Cloth Finishing Range Back Tender Relationship Specialty Start Date End Date Nicky Thibodeaux MD 230 [place] [address] PCP - General Family Medicine 04/20/18 Wu Manzo MD [address] [facility] [facility] [address] [place] [address] Pain Medicine 03/29/24 Feroz Ascencio MD [address] [place] [phone] Orthopaedic Surgery 06/15/24 Rolanda Tirado SpectroscopistCut Tobacco Bulker 06/25/23 TREASURE [facility] 04/26/24 documented as of this encounter
--- OUTSIDE RECORDS SUMMARY | 2025-04-14 11:05 | XMS_ITS | Encounter Summary ---
Author Organization [employer] Address [address] [facility] [address] 7t [place] [address] Care Team Providers Care Child Protective Services Social Worker Name Role Phone Nicky Thibodeaux MD Primary Care Provider [phone]- [phone] Wu Manzo MD Unavailable Feroz Ascencio MD Unavailable [phone] Reason for Visit * Reason Onset Date Comments PA 10/12/2023 Encounter Details Date Type Department Care Team (Late st Contact Info) Description 10/12/2023 Telephone [facility] MEDICINE 230 [place] [address] Nicky Thibodeaux MD [address] [place] [address] PA Social History Tobacco Use Types Packs/Day [...] Description 05/15/2025 2:00 PM EST Office Visit [facility] OPTOMETRY [address] [place] [address] Rafita, Shannan, OD 230 [place] [address] 05/31/2025 2:15 PM EST Office Visit [facility] MEDICINE 230 [place] [address] Nicky Thibodeaux MD 230 [place] [address] documented as of this encounter Visit Diagnoses Not on filedocumented in this encounter Additional Health Concerns Assessment Noted Time PHQ-9 Depression Total Score: 22 023 2:09 PM EDT documented as of this encounter Care Teams Child Protective Services Social Worker Relationship Specialty Start Date End Date Nicky Thibodeaux MD [address] [place] [address] PCP - General Family Medicine 04/20/18 Wu Manzo MD [address] [facility] [address] [facility] [address] [place] [address] Pain Medicine 03/29/24 Feroz Ascencio MD [address] [place] [phone] Orthopaedic Surgery 06/15/24 Rolanda Tirado Rent And Housing InvestigatorDuplication Specialist 06/25/23 TREASURE [facility] 04/26/24 documented as of this encounter
--- OUTSIDE RECORDS SUMMARY | 2025-04-14 11:05 | XMS_ITS | Encounter Summary ---
Author Organization [employer] Address 75 [facility] 7t [place] [address] Care Team Providers Care Advanced Manufacturing Technician Name Role Phone Nicky Thibodeaux MD Primary Care Provider [phone]- [phone] Wu Manzo MD Unavailable Feroz Ascencio MD Unavailable [phone] Reason for Visit * Reason Comments Med Refill Encounter Details Date Type Department Care Team ([facility] Contact Info) Description 08/26/2022 Refill [facility] [address] [place] [address] Nicky Thibodeaux MD 230 [place] [address] Pain Social History Tobacco Use Types Packs/Day [...] Upcoming Encounters Date Type Department Care Team ([facility] Contact Info) Description 05/15/2025 2:00 PM EST Office Visit [facility] OPTOMETRY [address] [place] [address] Rafita, Shannan, OD 230 [place] [address] 05/31/2025 2:15 PM EST Office Visit [facility] MEDICINE 230 [place] [address] Nicky Thibodeaux MD 230 [place] [address] documented as of this encounter Visit Diagnoses Diagnosis Pain Generalized pain documented in this encounter Additional Health Concerns Assessment Noted Time PHQ-9 Depression Total Score: 22 023 2:09 PM EDT documented as of this encounter Care Teams Advanced Manufacturing Technician Relationship Specialty Start Date End Date Nicky Thibodeaux MD 230 [place], [place] [phone] PCP - General Family Medicine 04/20/18 Wu Manzo MD [address] [place] [address] Pain Medicine 03/29/24 Feroz Ascencio MD [address] [place] [phone] Orthopaedic Surgery 06/15/24 Rolanda Tirado OremanGround Water Technician 06/25/23 TREASURE [facility] 04/26/24 documented as of this encounter
--- OUTSIDE RECORDS SUMMARY | 2025-04-14 11:05 | XMS_ITS | Encounter Summary ---
Author Organization [employer] Address [address] 7t [place] [address] Care Team Providers Care Talent Development Consultant Name Role Phone Nicky Thibodeaux MD Primary Care Provider [phone]- [phone] Wu Manzo MD Unavailable Feroz Ascencio MD Unavailable [phone] Encounter Details Date Type Department Care Team (Late st Contact Info) Description 03/11/2023 Abstract [facility] MEDICINE [address] [place], [place] [phone] Thuy Valenzuela Social History Tobacco Use Types [...] Description 05/15/2025 2:00 PM EST Office Visit [facility] OPTOMETRY [address] [place] [address] Rafita, Shannan, OD 230 [place] [address] 05/31/2025 2:15 PM EST Office Visit [facility] MEDICINE [address] [place] [address] Nicky Thibodeaux MD 230 [place] [address] documented as of this encounter Visit Diagnoses Not on filedocumented in this encounter Additional Health Concerns Assessment Noted Time PHQ-9 Depression Total Score: 22 023 2:09 PM EDT documented as of this encounter Care Teams Talent Development Consultant Relationship Specialty Start Date End Date Nicky Thibodeaux MD 230 [place] [address] PCP - General Family Medicine 04/20/18 Wu Manzo MD [address] [place] [address] Pain Medicine 03/29/24 Feroz Ascencio MD [address] [place] [address] [phone] Orthopaedic Surgery 06/15/24 Rolanda Tirado Photocopy OperatorPhys Asst 06/25/23 Latia Guardado PA-C [facility] 04/26/24 documented as of this encounter
--- OUTSIDE RECORDS SUMMARY | 2025-04-14 11:05 | XMS_ITS | Encounter Summary ---
Author Organization [employer] Address 75 [facility] 7t [place] [address] Care Team Providers Care Health Professional Name Role Phone [place], Nicky CASTAÑEDA Primary Care Provider [phone]- [phone] Wu Manzo MD Unavailable Feroz Ascencio MD Unavailable [phone] Reason for Visit * Reason Comments Med Refill Encounter Details Date Type Department Care Team (Late st Contact Info) Description 04/29/2023 Refill [facility] MEDICINE 230 [place] [address] Chelsi Canseco ANP 230 [place] [address] Social History Tobacco Use Types Packs/Day Years [...] Office Visit [facility] OPTOMETRY [address] [place] [address] Rafita, Shannan, OD 230 [place] [address] 05/31/2025 2:15 PM EST Office Visit [facility] MEDICINE 230 [place] [address] Nicky Thibodeaux MD 230 [place] [address] documented as of this encounter Visit Diagnoses Not on filedocumented in this encounter Additional Health Concerns Assessment Noted Time PHQ-9 Depression Total Score: 22 023 2:09 PM EDT documented as of this encounter Care Teams Health Professional Relationship Specialty Start Date End Date Nicky Thibodeaux MD 230 [place] [address] PCP - General Family Medicine 04/20/18 Wu Manzo MD [address] [place] [address] Pain Medicine 03/29/24 Feroz Ascencio MD [address] [place] [phone] Orthopaedic Surgery 06/15/24 Rolanda Tirado Drawing TenderActivities Coordinator 06/25/23 TREASURE [facility] 04/26/24 documented as of this encounter
--- OUTSIDE RECORDS SUMMARY | 2025-04-14 11:05 | XMS_ITS | Encounter Summary ---
Author Organization [employer] Address [address] [facility] [address] 7t [place] [address] Care Team Providers Care Telecommunication Systems Designer Name Role Phone Nicky Thibodeaux MD Primary Care Provider [phone]- [phone] Wu Manzo MD Unavailable Feroz Ascencio MD Unavailable [phone] Reason for Visit * Reason Onset Date Comments Med Refill 04/29/2023 Encounter Details Date Type Department Care Team (Late st Contact Info) Description 04/29/2023 Telephone [facility] MEDICINE 230 [place] [address] Nicky Thibodeaux MD 230 [place] [address] Med Refill Social History Tobacco Use Types [...] MG tablet To be sent to: [facility]/pharmacy [address] [place] [address] documented in this encounter Plan of Treatment Upcoming Encounters Date Type Department Care Team (Late st Contact Info) Description 05/15/2025 2:00 PM EST Office Visit [facility] OPTOMETRY [address] [place] [address] Shannan Eller OD 230 [place] [address] 05/31/2025 2:15 PM EST Office Visit [facility] MEDICINE 230 [place] [address] Nicky Thibodeaux MD 230 [place] [address] documented as of this encounter Visit Diagnoses Not on filedocumented in this encounter Additional Health Concerns Assessment Noted Time PHQ-9 Depression Total Score: 22 023 2:09 PM EDT documented as of this encounter Care Teams Telecommunication Systems Designer Relationship Specialty Start Date End Date Nicky Thibodeaux MD [address] [place] [address] PCP - General Family Medicine 04/20/18 Wu Manzo MD [address] [place] [address] [address] [place] [address] Pain Medicine 03/29/24 Feroz Ascencio MD [address] [place] [address] [phone] Orthopaedic Surgery 06/15/24 Rolanda Tirado MustangerMobile Application Architect 06/25/23 Latia Guardado PA-C [facility] 04/26/24 documented as of this encounter
--- OUTSIDE RECORDS SUMMARY | 2025-04-14 11:06 | XMS_ITS | Encounter Summary ---
Author Organization [employer] Address 75 [facility] 7t [place] [address] Care Team Providers Care Belting Cutter Name Role Phone Nicky Thibodeaux MD Primary Care Provider [phone] Wu Manzo MD Unavailable Feroz Ascencio MD Unavailable [phone] Reason for Visit * Reason Comments Med Refill Encounter Details Date Type Department Care Team (Late st Contact Info) Description 05/26/2024 Refill [facility] MEDICINE [address] [place] [address] Nicky Thibodeaux MD 230 [place] [address] Pain Social History Tobacco Use Types Packs/Day [...] 05/15/2025 2:00 PM EST Office Visit [facility] OPTOMETRY [address] [place] [address] Shannan Eller, OD 230 [place] [address] 05/31/2025 2:15 PM EST Office Visit [facility] MEDICINE [address] [place] [address] Nicky Thibodeaux MD 230 [place] [address] documented as of this encounter Visit Diagnoses Diagnosis Pain Generalized pain documented in this encounter Additional Health Concerns Assessment Noted Time PHQ-9 Depression Total Score: 14 024 10:51 AM EST documented as of this encounter Care Teams Belting Cutter Relationship Specialty Start Date End Date Nicky Thibodeaux MD 230 [place] [address] PCP - General Family Medicine 04/20/18 Wu Manzo MD [address] [place] [address] Pain Medicine 03/29/24 Feroz Ascencio MD [address] [place] [address] [phone] Orthopaedic Surgery 06/15/24 Rolanda Tirado Blank DrillerOptical Effects Layout Person 06/25/23 Latia Guardado PA-C [facility] 04/26/24 documented as of this encounter
--- OUTSIDE RECORDS SUMMARY | 2025-04-14 11:06 | XMS_ITS | Encounter Summary ---
Author Organization [employer] Address 75 [facility] 7t [place] [address] Care Team Providers Care Analog Device Designer Name Role Phone Nicky Thibodeaux MD Primary Care Provider [phone] Wu Manzo MD Unavailable Feroz Ascencio MD Unavailable [phone] Reason for Visit * Reason Onset Date Comments pt1 10/12/2024 Encounter Details Date Type Department Care Team (Late st Contact Info) Description 10/12/2024 Telephone [facility] MEDICINE [address] [place] [address] Nicky Thibodeaux MD 230 [place] [address] pt1 Social History Tobacco Use Types Packs/Day [...] EDT CHW Cheyenne Carpio submitted pt1 to [facility] for location below and will take up to 7 days to getapproved. CHW placed call to patient to let her know, patient understood and will call if she has any concerns. documented in this encounter Plan of Treatment Upcoming Encounters Date Type Department Care Team (Late st Contact Info) Description 05/15/2025 2:00 PM EST Office Visit [facility] OPTOMETRY [address] [place] [address] Shannan Eller, GREG 230 [place] [address] 05/31/2025 2:15 PM EST Office Visit [facility] MEDICINE [address] [place] [address] Nicky Thibodeaux MD 230 [place] [address] documented as of this encounter Visit Diagnoses Not on filedocumented in this encounter Additional Health Concerns Assessment Noted Time PHQ-9 Depression Total Score: 14 024 10:51 AM EST documented as of this encounter Care Teams Analog Device Designer Relationship Specialty Start Date End Date Nicky Thibodeaux MD 230 [place] [address] PCP - General Family Medicine 04/20/18 Wu Manzo MD [address] [facility] [address] [facility] [address] [place] [address] Pain Medicine 03/29/24 Feroz Ascencio MD [address] [place] [phone] Orthopaedic Surgery 06/15/24 Rolanda Tirado Perforator Operator Oil WellEquipment Operator Warehouse 06/25/23 Latia Guardado PA-C [facility] 04/26/24 documented as of this encounter
--- OUTSIDE RECORDS SUMMARY | 2025-04-14 11:06 | XMS_ITS | Clinical Summary ---
Author Organization [employer] Address [address] [place] [address] 7t [place] [address] Care Team Providers Care Swimming Pool Service Technician Name Role Phone Nicky Thibodeaux MD Primary Care Provider [phone] Wu Manzo MD Unavailable Feroz Ascencio MD Unavailable [phone] Allergies Active Allergy Reactions Criticality Noted Date Comments Aspirin GI intolerance Low 01/03/2013 Ibuprofen GI intolerance Low 12/29/2014 Medications Spiriva HandiHaler 18 MCG inhalation capsuleIndication s:Chronic obstructive pulmonary disease, unspecified COPD type (CMS/HCC) ([facility]) INHALE 1 CAPSULE VIA HANDIHALER ONCE [...] with anxiety 50 mg. Active HYDROcodone-aceta minophen ([place]) 5-325 MG tabletIndications :Chronic low back pain, [...] HOURS NEEDED 18 g 1 025 Active Acetaminophen Extra Strength 500 [...] HOURS NEEDED 90 tablet 025 2024 Discontinued diclofenac (Voltaren) 75 MG EC tabletIndications :Osteoarthritis of hip, unspecified laterality, unspecified osteoarthritis type TAKE 1 TABLET BY MOUTH TWICE A DAY NEEDED 60 tablet 025 2024 Discontinued Active Problems Problem [...] due after 03/14/25 -eye care facilitated by [facility] -dental home is [facility] [place] care proxy paperwork completed by to the patient 07/17/23 Assessment & Plan (03/14/2024 11:23 AM EST): -next physical exam due after 03/14/25 -eye care facilitated by [facility] -dental home is [facility] [place] care proxy paperwork completed by to the patient 07/17/23 Assessment & Plan (11/19/2023 11:08 AM EDT): -next physical exam due after 12/11/23 -eye care facilitated by [facility] -dental home is [facility] care proxy paperwork completed by to the patient 07/17/23 Assessment & Plan (07/17/2023 10:10 AM EDT): -next physical exam due after 12/11/23 -eye care facilitated by [facility] -dental home is [facility] proxy paperwork completed by the patient 07/17/23 [...] and I DDD [employer]. -note 12/30/24 at [facility] case reviewed with dr taveras, he would offer her ACDF C4-5, C5-6. i will call her and update her. Assessment & Plan (07/17/2023 10:03 AM EDT): Her pain is not controlled. Dillon asked her to reach out to her original prescriber for Vicodin at [facility]. She is 7 weeks post-op sugery and is weaning her percocet's. Dillon explained since she is on Ambien, gabapentin, and benzodiazapine I would not be able to safely prescribe the medications through our program. Assessment & Plan (12/15/2022 9:38 AM EDT): Her pain is not controlled. Dillon asked her to reach out to her original prescriber for Vicodin at [facility]. She is 7 weeks post-op sugery and is weaning her percocet's. Dillon explained since she is on Ambien, gabapentin, and benzodiazapine I would not be able to safely prescribe the medications through our program. Assessment & Plan (09/03/2022 12:12 PM EDT): Her pain is not controlled. Dillon asked her to reach out to her original prescriber for Vicodin at [facility]. She is 7 weeks post-op sugery and is weaning her percocet's. Dillon explained since she is on Ambien, gabapentin, and benzodiazapine I would not be able to safely prescribe the medications through our program. Arthritis 09/02/2022 Cerebrovascular accident (CVA) ([facility]/HCC) 023 Overview (11/18/2023): Pt had episode of [...] of Wegovy from insurance 09/23/23. -Wegovy (semaglutide) -UBZZ resubmitted 11/19/23 -Advised to Switch from Wegovy [...] considered to be 1.7 or 2.4 mg long term. -PA resubmitted 11/19/23 - Advised to Switch [...] considered to be 1.7 or 2.4 mg long term. -BUZZ resubmitted 11/19/23 Assessment & Plan (09/23/2023 [...] considered to be 1.7 or 2.4 mg long term. Chronic low back pain 07/23/2022 Overview (01/25/2025): [...] severe pain. She is getting Vicodin from [facility]. She requests opiate medications from id. We have reviewed her sedating medications together [...] therapy, multiple injections, and awaiting TENs unit. -[facility] prescribing hydrocodone/APA 5/325 to support instrumented activities [...] severe pain. She is getting Vicodin from [facility]. She requests opiate medications from [...] pain. She sees a therapist and psychiatrist. -[facility] prescribing hydrocodone/APA 5/325 to support instrumented activities [...] severe pain. She is getting Vicodin from [facility]. She requests opiate medications from [...] -Referral placed to Gynecology, Dr. Aaron 07/17/23 -[facility] called 09/23/23 stating pt declined appt [...] -Referral placed to Gynecology, Dr. Aaron 07/17/23 -[facility] called 09/23/23 stating pt declined appt [...] -Referral placed to Gynecology, Dr. Aaron 07/17/23 -[facility] called 09/23/23 stating pt declined appt [...] left MARISELA 01/29/[address] Neal in [place] -s/p bilateral GT bursa injection under fluoroscopic guidance 06/13/24 with moderate reduction of pain in bilateral lateral hips -seen by ortho at [facility] 07/21/24 Hip pain [...] Encounters Date Type Department Care Team Description 04/04/2025 Refill [facility] MEDICINE [address] [place] [address] Nicky Thibodeaux MD Osteoarthritis of hip, unspecified laterality, unspecified osteoarthritis type 03/28/2025 Telephone [facility] MEDICINE [address] [place] [address] Nicky Thibodeaux MD chart prep 03/23/2025 Refill [facility] MEDICINE [address] [place] [address] Nicky Thibodeaux MD Pain 03/20/2025 Patient Outreach [facility] MEDICINE [address] [place] [address] Nicky Thibodeaux MD Pre-visit Planning ([facility] screening was completed on 12/28/2024) 03/03/2025 Refill [facility] MEDICINE [address] [place] [address] Nicky Thibodeaux MD Osteoarthritis of hip, unspecified laterality, unspecified osteoarthritis type 02/20/2025 Refill [facility] MEDICINE [address] [place] [address] Nicky Thibodeaux MD Pain; Dermatitis; Asthma, unspecified asthma severity, unspecified whether complicated, unspecified whether persistent 02/16/2025 Refill [facility] MEDICINE [address] [place] [address] Nicky Thibodeaux MD Primary hypertension 02/11/2025 Refill [facility] MEDICINE [address] [place] [address] Nicky Thibodeaux MD Abdominal pain, unspecified abdominal location 01/23/2025 Telephone [facility] MEDICINE [address] [place] [address] Nicky Thibodeaux MD March Recalls 01/23/2025 Travel 01/20/2025 Refill [facility] [address] [place] [address] Nicky Thibodeaux MD Pain; Osteoarthritis of hip, [...] [facility] OPTOMETRY [address] [place], [place] [phone] RafitaShannan polo, OD [address] [place] [address] 05/31/2025 2:15 PM EST Office Visit [facility] MEDICINE [address] [place] [address] Nicky Thibodeaux MD 230 [place] [address] Health Maintenance Due Date Last Done Comments [...] 10:08 AM EDT) Triglycerides 198(H) <150 mg/dL [facility] Comment:Desirable Triglyceri de: less than 150 mg/dLBorderline High Triglyceride 150-199 mg/dLHigh Triglyceride: 200-499 mg/dLVery High Triglyceride: greater than or equal to 5OO mg/dL Cholesterol 186 <200 mg/dL [facility] Comment:Desirable Cholestero l: less than 200 mg/dLBorderline High Cholesterol: 200-239 mg/dLHigh Cholesterol: greater than 239 mg/dL LDL Cholesterol Calculated 97 <100 mg/dL [facility] Comment:Desirable LDL: less than 100 mg/dLNear Optimal/Above Optimal LDL: 110- 129 mg/dLBorderline High LDL: 130-159 mg/dLHigh LDL: 160-189 mg/dLVery High LDL: greater than or equal to 190 mg/dL HDL Cholesterol 50 >40 mg/dL [facility] Comment:Desirable HDL: great er than 40 mg/dL Note: This HDL assay may give artificially low results in patients with liver disease. 12/26/2024 10:0 8 AM EDT 12/26/2024 11:21 AM EDT us Generic External Data Provider LAB BLOOD ORDERAB LES Final Result [facility] [address] [place] [address] [phone] * BI Mammogram Screening Tomosynthesis Bilateral (09/30/2024 2:45 PM EDT) Anatomical Region Laterality Modality Breast Bilateral Mammography 09/30/2024 2:45 PM EDT Narrative 10/08/2024 8:50 PM EDT [facility] [address] [place] [address] Mammography Report Signed Patient: Darcy Medina MR#: [id number] : 1965 Acct:[id number] Age/Sex: 59 / F ADM Date: 09/30/24 Loc: HO.MAMMO Attending Dr: Nicky Thibodeaux MD Ordering Physician: Nicky Thibodeaux MD Results: 2B enign Findings Date of Service: 09/30/24 Follow Up: 1 Year From [facility] Mammogram Procedure(s): MM tomosynthesis screening BI Accession Number(s): [id number] cc: Nicky Thibodeaux MD EXAMINATION: MM SCREENING [...] by Eliza Rivera DO in OV> 10/08/24 204 DD/ 1445 TD/TT: 09/30/24 1500 Cooker Sulfite: Procedure Note Donotuseinterpreter, Image - 10/08/20[facility] [address] [place] [address] Mammography Report Signed Patient: Darcy Medina FMR#: [id number] : 1965Acct:[id number] Age/Sex: 59 / FADM Date: 09/30/24 Loc: HO.MAMMO Attending Dr: Nicky Thibodeaux MD Ordering Physician: Nicky Thibodeaux MDResults: 2B enign Findings Date of Service: 09/30/24Follow Up: 1 Year From [facility] Mammogram Procedure(s): MM tomosynthesis screening BI Accession Number(s): [id number] cc: Nicky Thibodeaux MD EXAMINATION: MM SCREENING [...] OV> 10/08/242046 DD/ 1445 TD/TT: 09/30/24 1500 Cooker Sulfite: Nicky Thibodeaux MD IMG BI PROCEDURES Edited R esult - Final * Hepatitis C Antibody with Reflex to HCV, RNA, Quantitative, Real-Time PCR (09/03/2022 11:58 AM EDT) Hepatitis C Antibody NON-REACT DILLON NON-REACT DILLON Survata Index 0.02 <1.00 Survata Comment: HCV antibody was non-reactive. There is no laboratory evidence of HCV infection. In most cases, no further action is required. However, if recent HCV exposure is suspected, a test for HCV RNA (test code 33070) is suggested. For additional information please refer to http://education.[facility]/faq/VLK53h6 (This link is being provided for informational/ educational purposes only.) Blood Venous blood specimen / Unknown 09/03/2022 11:58 AM EDT 09/03/2022 11:58 AM EDT Narrative [facility] - 09/07/2022 11:33 PM EDT FASTING:YES FASTING: YES Result [facility] Nicky Thibodeaux MD LAB BLOOD ORDERABLES Final Result [facility] [address], [place] [address] [facility] [place] [facility] [address] [place] [address] * HIV-1/2 Antigen and Antibodies, Fourth Generation, with Reflexes (09/03/2022 11:58 AM EDT) HIV Antigen/Antibody, 4th Generation NON-REAC TIVE NON-REAC TIVE [facility] Comment: HIV-1 antigen and HIV-1/HIV-2 antibodies [...] purpose. For additional information please refer to http://education.[facility]/faq/FKB049 (This link is being provided for informational/ educational purposes only.) The performance of this assay has not been clinically validated in patients less than 2 years old. Blood Venous blood specimen / Unknown 09/03/2022 11:58 AM EDT 09/03/2022 11:58 AM EDT Narrative [facility] - 09/07/2022 11:33 PM EDT FASTING:YES FASTING: YES Nicky Thibodeaux MD LAB BLOOD ORDERABLES Final Result [facility] [address], [place] [address] [facility] [address] [place] [address] * (ABNORMAL) THINPREP TIS PAP AND HPV mRNA E6/E7, CT/NG, TRICH (08/02/2021 11:49 AM EDT) Pathologist [facility] Chlamydia trachomatis RNA, TMA, Urogenital NOT DETECTED NOT DETECTED [facility] Clinical Information: None given [facility] COMMENT SEE COMMENT [facility] Comment: The analytical performance characteristics of this assay, when used to test SurePath(TM) specimens have been determined by [facility]. The modifications have not been cleared or approved by the FDA. This assay has been validated pursuant to the CLIA regulations and is used for clinical purposes. For additional information, please refer to https://education.[employer]/faq/SRE395 (This link is being provided for information/ [...] evaluated with computer assisted technology. [facility] Assistant Auto Center Manager: SEE COMMENT [facility] Comment: DCR, CT(ASCP) CT screening location: [place] [address] HPV nRNA E6/E7 Detected(A) Not Detected [facility] Comment: Methodology: Parts Runner-Mediated Amplification This assay detects E6/E7 viral messenger RNA (mRNA) from 14 high-risk HPV types (16,18,31,33,35,39,45,51,52,56,58,59,66,68). The analytical performance characteristics of this assay have been determined by [facility]. The modifications have not been cleared or approved by the FDA. This assay has been validated pursuant to the CLIA regulations and is used for clinical purposes. For additional information, please refer to http://[employer].[facility]/faq/TRO753w6 (This link if provided for information/ educational purposes only.) Interpretation/Res ult: SEE COMMENT [facility] Comment: Negative for intraepithelial lesion or malignancy. Atrophic pattern; predominantly parabasal cells LMP: NONE GIVEN [facility] Neisseria gonorrhoeae RNA, TMA, Urogenital NOT DETECTED NOT DETECTED [facility] Prev. BX: NONE GIVEN [facility] Prev. PAP: NONE GIVEN [facility] Review Assistant Auto Center Manager: SEE COMMENT [facility] Comment: JXM, CT(ASCP) CT screening location: [place] [address] SOURCE: None given [facility] Statement Of Adequacy: SATISFACTORY FOR EVALUATION [facility] Trichomonas vaginalis, QL, TMA, PAP Vial NOT DETECTED NOT DETECTED [facility] Comment: The analytical performance characteristics of this assay have been determined by [facility]. The modifications have not been cleared or approved by the FDA. This assay has been validated pursuant to the CLIA regulations and is used for clinical purposes. For additional information, please refer to http://education.[facility]/ faq/Trichomonastma (This link is being provided for information/ educational purposes only.) 08/02/2021 11:4 9 AM EDT Nicky Thibodeaux MD LAB PATHOLOGY ORDERABLES F inal Result Performing Organization Address City/[facility]/ZIP Co de Phone Number [facility] [address] [place] [address] * Pap Smear (08/02/2021 12:00 AM EDT) Swab Nicky Thibodeaux MD LAB CYTOLOGY ORDERABLES Fi nal Result [facility] [address] [place] [phone] * Colonoscopy (12/11/2015) Colonoscopy normal with Dr. Delgado Maira Guevara MD HEALTH MAINTENANCE Final Result from Last 3 Months or Most Recently Relevant to Health Maintenance Insurance [facility] ST[place] AD[place] Advance Directives Documents on File Type Date Recorded Patient Asbestos Coverer Expl anation Advance Directives and Living Will 07/17/2023 Health Care Proxy 07/17/23 Care Teams Swimming Pool Service Technician Relationship Specialty Start Date End Date [place], [place] Nicky [address] [place] [address] PCP - General Family Medicine 04/20/18 Wu Manzo MD [address] [place] [address] Pain Medicine 03/29/24 Feroz Ascencio MD [address] [place] [phone] Orthopaedic Surgery 06/15/24 Rolanda Tirado Emt PPre Owned Sales Consultant 06/25/23 TREASURE [facility] 04/26/24
--- OUTSIDE RECORDS SUMMARY | 2025-04-14 11:06 | XMS_ITS | Encounter Summary ---
Author Organization [employer] Address [address] 7t [place] [address] Care Team Providers Care Box Brander Name Role Phone Nicky Thibodeaux MD Primary Care Provider [phone] Wu Manzo MD Unavailable Feroz Ascencio MD Unavailable [phone] Reason for Visit * Reason Onset Date Comments PT-1 12/08/2023 Encounter Details Date Type Department Care Team (Late st Contact Info) Description 12/08/2023 Telephone [facility] MEDICINE [address] [place] [address] Nicky Thibodeaux MD [address] [place] [address] PT-1 Social History Tobacco Use Types Packs/Day [...] Y/N: Yes Provider name or facility name: [facility] pain management Facility Address: [address] [place] [address] Escort needed: Y/N: No Do you have a wheelchair: Y/N: No If yes- Manual or electric: N/A (uses walker) Visits: twice a month documented in this encounter Plan of Treatment Upcoming Encounters Date Type Department Care Team (Late st Contact Info) Description 05/15/2025 2:00 PM EST Office Visit [facility] OPTOMETRY [address] [place] [address] Rafita, Shannan, OD [address] [place] [address] 05/31/2025 2:15 PM EST Office Visit [facility] MEDICINE [address] [place] [address] Nicky Thibodeaux MD [address] [place] [address] documented as of this encounter Visit Diagnoses Not on filedocumented in this encounter Additional Health Concerns Assessment Noted Time PHQ-9 Depression Total Score: 22 023 2:09 PM EDT documented as of this encounter Care Teams Box Brander Relationship Specialty Start Date End Date Nicky Thibodeaux MD [address] [place] [address] PCP - General Family Medicine 04/20/18 Wu Manzo MD [address] [place] [address] Pain Medicine 03/29/24 Feroz Ascencio MD [address] [place] [phone] Orthopaedic Surgery 06/15/24 Rolanda Tirado Journeyman WiremanArcade Game Technician 06/25/23 TREASURE [facility] 04/26/24 documented as of this encounter
--- OUTSIDE RECORDS SUMMARY | 2025-04-14 11:06 | XMS_ITS | Encounter Summary ---
Author Organization [employer] Address [address] [facility] 7t [place] [address] Care Team Providers Care Production Sanitizer Name Role Phone Nicky Thibodeaux MD Primary Care Provider [phone] Wu Manzo MD Unavailable Feroz Ascencio MD Unavailable [phone] Encounter Details Date Type Department Care Team (Latest Contact Info) Description 04/05/2021 Abstract [facility] Dental, Provider, DDS Social History Tobacco [...] Description 05/15/2025 2:00 PM EST Office Visit [facility] OPTOMETRY [address] [place] [address] RafitaShannan polo, OD 230 [place] [address] 05/31/2025 2:15 PM EST Office Visit [facility] [address] [place] [address] Nicky Thibodeaux MD [address] [place] [address] documented as of this encounter Visit Diagnoses Not on filedocumented in this encounter Care Teams Production Sanitizer Relationship Specialty Start Date End Date More[place], MD Nicky [address] [place] [address] PCP - General Family Medicine 04/20/18 Wu Manzo MD [address] [place] [address] Pain Medicine 03/29/24 Feroz Ascencio MD [address] [place] [phone] Orthopaedic Surgery 06/15/24 Rolanda Tirado Grade TamperHat Model 06/25/23 TREASURE [facility] 04/26/24 documented as of this encounter
--- OUTSIDE RECORDS SUMMARY | 2025-04-14 11:06 | XMS_ITS | Encounter Summary ---
Author Organization [employer] Address [address] [place] [address] 7t [place] [address] Care Team Providers Care Braille Teacher Name Role Phone Nicky Thibodeaux MD Primary Care Provider [phone]- [phone] Wu Manzo MD Unavailable Feroz Ascencio MD Unavailable [phone] Reason for Visit * Reason Comments Med Refill Encounter Details Date Type Department Care Team (Late Contact Info) Description 12/11/2022 Refill [facility] MEDICINE [address] [place] [address] Nicky Thibodeaux MD [address] [place] [address] Social History Tobacco Use Types Packs/Day Years [...] Description 05/15/2025 2:00 PM EST Office Visit [facility] OPTOMETRY [address] [place], [place] [phone] Shannan Eller OD [address] [place] [address] 05/31/2025 2:15 PM EST Office Visit [facility] MEDICINE [address] [place], [place] [phone] Nicky Thibodeaux MD [address] [place], [place] [phone] documented as of this encounter Visit Diagnoses Not on filedocumented in this encounter Additional Health Concerns Assessment Noted Time PHQ-9 Depression Total Score: 22 023 2:09 PM EDT documented as of this encounter Care Teams Braille Teacher Relationship Specialty Start Date End Date Nicky Thibodeaux MD [address] [place], [place] [phone] PCP - General Family Medicine 04/20/18 Wu Manzo MD [address] [place] [address] Drive [address] [place] [address] Pain Medicine 03/29/24 Feroz Ascencio MD [address] [place] [phone] Orthopaedic Surgery 06/15/24 Rolanda Tirado Intermediate School TeacherElectric Clock Mechanic 06/25/23 TRE[facility]URE [facility] 04/26/24 documented as of this encounter
--- OUTSIDE RECORDS SUMMARY | 2025-04-14 11:06 | XMS_ITS | Encounter Summary ---
Author Organization [employer] Address [address] 7[address] [place] [address] Care Team Providers Care Car Chaser Name Role Phone Nicky Thibodeaux MD Primary Care Provider [phone]- [phone] Wu Manzo MD Unavailable Feroz Ascencio MD Unavailable [phone] Encounter Details Date Type Department Care Team (Late st Contact Info) Description 2023 Orders Only [facility] MEDICINE [address] [place], [place] [phone] Nicky Thibodeaux MD [address] [place] [address] Social History Tobacco Use Types Packs/Day Years [...] Description 05/15/2025 2:00 PM EST Office Visit [facility] OPTOMETRY [address] [place] [address] RafitaShannan, OD [address] [place] [address] 05/31/2025 2:15 PM EST Office Visit [facility] MEDICINE [address] [place] [address] Nicky Thibodeaux MD [address] [place] [address] documented as of this encounter Visit Diagnoses Not on filedocumented in this encounter Additional Health Concerns Assessment Noted Time PHQ-9 Depression Total Score: 22 023 2:09 PM EDT documented as of this encounter Care Teams Car Chaser Relationship Specialty Start Date End Date Nicky Thibodeaux MD [address] [place] [address] PCP - General Family Medicine 04/20/18 Wu Manzo MD [address] [place] [address] Pain Medicine 03/29/24 Feroz Ascencio MD [address] [place] [phone] Orthopaedic Surgery 06/15/24 Rolanda Tirado Power Plant OperatorBag Shop Worker 06/25/23 TRE[facility]URE [facility] 04/26/24 documented as of this encounter
--- OUTSIDE RECORDS SUMMARY | 2025-04-14 11:06 | XMS_ITS | Encounter Summary ---
Author Organization [email or web address] Address [address] [facility] 7t [place] [address] Care Team Providers Care Electric Tape Slitter Name Role Phone [place], Nicky CASTAÑEDA Primary Care Provider [phone]- [phone] Wu Manzo MD Unavailable Feroz Ascencio MD Unavailable [phone] Reason for Visit * Reason Onset Date Comments Medication Question 12/11/2022 Encounter Details Date Type Department Care Team (Late st Contact Info) Description 12/11/2022 Telephone [facility] MEDICINE [address] [place] [address] Chelsi Canseco ANP [address] [place] [address] Medication Question Social History Tobacco Use Types [...] Description 05/15/2025 2:00 PM EST Office Visit [facility] OPTOMETRY [address] [place] [address] RafitaShannan polo, OD [address] [place] [address] 05/31/2025 2:15 PM EST Office Visit [facility] MEDICINE [address] [place] [address] Nicky Thibodeaux MD [address] [place] [address] documented as of this encounter Visit Diagnoses Diagnosis Essential (primary) hypertension Unspecified essential hypertension documented in this encounter Additional Health Concerns Assessment Noted Time PHQ-9 Depression Total Score: 22 023 2:09 PM EDT documented as of this encounter Care Teams Electric Tape Slitter Relationship Specialty Start Date End Date Nicky Thibodeaux MD [address] [place] [address] PCP - General Family Medicine 04/20/18 Wu Manzo MD [address] [place] [address] [address] [place] [address] Pain Medicine 03/29/24 Feroz Ascencio MD [address] [place] [phone] Orthopaedic Surgery 06/15/24 Rolanda Tirado Sand FillerSack Filler 06/25/23 Latia Guardado PA-C [facility] 04/26/24 documented as of this encounter
--- OUTSIDE RECORDS SUMMARY | 2025-04-14 11:06 | XMS_ITS | Encounter Summary ---
Author Organization [employer] Address [address] 7t [place] [address] Care Team Providers Care Central Control Room Operator Name Role Phone Nicky Thibodeaux MD Primary Care Provider [phone] Wu Manzo MD Unavailable Feroz Ascencio MD Unavailable [phone] Reason for Visit * Reason Onset Date Comments Pre-visit Planning 11/09/2023 Encounter Details Date Type Department Care Team (Late st Contact Info) Description 11/09/2023 Telephone [facility] MEDICINE [address] [place] [address] Nicky Thibodeaux MD [address] [place] [address] Pre-visit Planning Social History Tobacco Use Types [...] 05/15/2025 2:00 PM EST Office Visit [facility] OPTOMETRY [address] [place] [address] Rafita, Shannan, OD [address] [place] [address] 05/31/2025 2:15 PM EST Office Visit [facility] MEDICINE [address] [place] [address] Nicky Thibodeaux MD [address] [place] [address] documented as of this encounter Visit Diagnoses Not on filedocumented in this encounter Additional Health Concerns Assessment Noted Time PHQ-9 Depression Total Score: 22 023 2:09 PM EDT documented as of this encounter Care Teams Central Control Room Operator Relationship Specialty Start Date End Date Nicky Thibodeaux MD [address] [place] [address] PCP - General Family Medicine 04/20/18 Wu Manzo MD [address] [place] [address] Drive [address] [place] [address] Pain Medicine 03/29/24 Feroz Ascencio MD [address] [place] [phone] Orthopaedic Surgery 06/15/24 Rolanda Tirado Traffic ExpertSap Payroll Consultant 06/25/23 TRE[facility]URE [facility] 04/26/24 documented as of this encounter
--- OUTSIDE RECORDS SUMMARY | 2025-04-14 11:06 | XMS_ITS | Encounter Summary ---
Author Organization [employer] Address [address] [facility] 7t [place] [address] Care Team Providers Care [employer] Founder Name Role Phone Nicky Thibodeaux MD Primary Care Provider [phone]- [phone] Wu Manzo MD Unavailable Feroz Ascencio MD Unavailable [phone] Reason for Visit * Reason Onset Date Comments Nurse Triage 05/11/2024 Encounter Details Date Type Department Care Team (Late st Contact Info) Description 05/11/2024 Telephone [facility] MEDICINE [address] [place] [address] Nicky Thibodeaux MD [address] [place] [address] Nurse Triage Social History Tobacco Use Types [...] or Thursday.Pt wants appt on Thursday when HOME BASED ASSISTANT is available to bring pt. Reviewed [facility] operating hours and that wait times vary. Unable to book sick on site > 48 hours. Pt advised can call back on Thursday for Thursday scheduled. Reviewed home care advise, ER precautions and reasons to call back. Protocol Used: Dizziness (Adult) Protocol-Based Disposition: Discuss with PCP and Callback by Nurse Today Sent to PCP and [place] team Primary care nurses for follow up [...] Description 05/15/2025 2:00 PM EST Office Visit [facility] OPTOMETRY [address] [place] [address] Rafita, Shannan, OD [address] [place] [address] 05/31/2025 2:15 PM EST Office Visit [facility] MEDICINE [address] [place] [address] Nicky Thibodeaux MD [address] [place] [address] documented as of this encounter Visit Diagnoses Not on filedocumented in this encounter Additional Health Concerns Assessment Noted Time PHQ-9 Depression Total Score: 14 024 10:51 AM EST documented as of this encounter Care Teams [employer] Founder Relationship Specialty Start Date End Date Nicky Thibodeaux MD [address] [place] [address] PCP - General Family Medicine 04/20/18 Wu Manzo MD [address] [place] [address] Pain Medicine 03/29/24 Feroz Ascencio MD [address] [place] [phone] Orthopaedic Surgery 06/15/24 Rolanda Tirado Gore MakerGround Services Instructor 06/25/23 TRE[facility]URE [facility] 04/26/24 documented as of this encounter
--- OUTSIDE RECORDS SUMMARY | 2025-04-14 11:06 | XMS_ITS | Clinical Summary ---
Author Organization [employer] Address [address] [place] [address] Care Team Providers Care Art Psychotherapist Name Role Phone Nicky Thibodeaux MD Primary Care Provider [phone] Social History Tobacco Use Types Packs/Day Years [...] age to complete this topic Care Teams Art Psychotherapist Relationship Specialty Start Date End Date Nicky Thibodeaux MD [address] [place] [phone] PCP - General Internal Medicine 12/21/13
--- NOTE | 2025-04-14 11:41 | A.SPINEOV_ITS ---
Intake Visit Reasons: 1st post op Intake Note: Ms. Medina is here today for her 1st post op. Data Examination Clerk Required: No Allergies aspirin (ASPIRIN) Allergy (Mild, Verified 04/14/25 11:51) GI UPSET ibuprofen (IBUPROFEN) Allergy (Mild, Verified 04/14/25 11:51) GI UPSET Assessment & Plan Assessment & Plan (1) Cervical radiculopathy: Code(s): M54.12 - Radiculopathy, cervical region Category: Medical Plan Mrs Medina is here in follow up. She is 3 weeks out from her C4-5, C5-6 anterior cervical fusion. The pain down her left arm that she describes as nerve pain is significantly better. She still feels though her left shoulder muscles feel weak. She still has a hard time lifting her arm overhead and does get some pain with doing that. Previous shoulder x-rays did reveal some arthritis. On exam, she is still has impingement signs in her left shoulder but the gross motor examination testing appears to be full strength. Sensation is normal. Her wound is healing up well although there is still some swelling, she is swallowing okay and tolerating a diet. I reassured her that many of the things she is feeling right now with her neck in terms of neck discomfort are normal. We discussed activity guidelines, restrictions and expectations after anterior cervical fusion surgery. I will see her back in 6 weeks for a 2nd postoperative visit with x-rays. If her shoulder limitations continue, I told her I would consider getting a left shoulder MRI. Yogi Myrick MD, PhD [facility] Orders: Orders XR cervical spine 4V 6 Weeks M54.12 - Radiculopathy, cervical region Coding Level of Care Code Global (31998) Diagnoses Cervical radiculopathy M54.12
== END 2025-04-14 12:41 | disposition home or self-care (01) ==
LOC: HO.HNS 11:03
PROVIDERS: Visit Provider Physician Assistant
DX: M54.12 Radiculopathy, cervical region (principal)
CPT/HCPCS: 99024

== ENCOUNTER → 2025-04-14 11:02 | Outpatient (BNVA) | payer MEDICAID, SELFPAY | PROVIDERS: Visit Provider Physician Assistant | DX: Z98.1 Arthrodesis status (principal); Z48.811 Encounter for surgical aftercare following surgery on the nervous system; M54.12 Radiculopathy, cervical region | CPT/HCPCS: 99212 ==